=== PATIENT | male | born 1945 | race Caucasian/White ===

== ENCOUNTER 2020-08-16 13:21 | Inpatient (IN) | payer MEDICARE, OTHER, SELFPAY ==
[2020-08-16] VITALS (18 sets, daily range): BP systolic 110–153; BP diastolic 51–72; PULSE 79–122; RESP 14–33; TEMP 36.8–37.1; O2SAT 89–100; BMI 32.1
--- NOTE | ~2020-08-16 | XR_ITS ---
EXAMINATION: XR chest 2V EXAM DATE: 08/16/2020 13:56 INDICATION: Weakness, emesis, lethargic, diaphoretic. TECHNIQUE: Frontal and lateral projections of the chest obtained and reviewed. Comparison is made to prior examination from 08/15/2018. FINDINGS: Small amount of bibasilar atelectasis or infiltrate. There are no pleural effusions. The cardiomediastinal silhouette is within normal limits. There is no pneumothorax suspected. The bones and soft tissues are unremarkable. IMPRESSION: Small amount of bibasilar atelectasis or infiltrate. Reviewed, dictated and finalized at location A.
--- NOTE | ~2020-08-16 | CT_ITS ---
EXAMINATION: CT abdomen pelvis w con DATE: 08/16/2020 15:13 INDICATION: Sepsis. Generalized abdominal pain. Nausea and vomiting. TECHNIQUE: Computed tomography (CT) of the abdomen and pelvis was performed with 100 mL Omnipaque-350 intravenous contrast. Automated exposure control and iterative reconstruction technique were employe d. The dose-length product was 1577.48 mGy-cm. COMPARISON: 08/15/2018 FINDINGS: Mild atelectasis at the lung bases. Heart size is normal. Atherosclerotic coronary artery calcific ca lcification. No pericardial or pleural effusion. Liver, gallbladder, pancreas, bilateral adrenal glan ds and left kidney are normal. A couple right renal cysts the larger measuring 2.1 cm. Chronic rim ca lcified splenic mass likely sequela of chronic hematoma or infection. Appendix is normal. There is mi ld rectal wall thickening and perirectal stranding. Remainder of the bowel is normal. No obstruction. Bladder is normal. Prostatomegaly. No free intraperitoneal gas or fluid. No pathologically enlarged abdominal or pelvic lymphadenopathy. Small amount of atherosclerotic calcification without hemodynami dayan significant stenosis along the aorta and bilateral common and internal iliac arteries. Mild to moderate scattered degenerative skeletal changes in the spine and pelvis. IMPRESSION: 1. Proctitis/distal colitis which could be infectious, inflammatory or less likely ischemic in etiolo gy. Reviewed, dictated and finalized at location A. IMPRESSION: 1. Proctitis/distal colitis which could be infectious, inflammatory or less lik roro ischemic in etiology.
--- NOTE | 2020-08-16 13:25 | ED.WEAKNESS ---
HPI - Weakness General Chief complaint: Weakness Stated complaint: weakness/emesis Time Seen by Provider: 08/16/20 13:25 History of Present Illness HPI Narrative: History limited by medical condition. 74 yo male w/ h/o DM, BPH, Colitis presents to the ED from home for weakness. He reports that he has felt generally weak since this morning. This has been associated wih vomiting. His son reports a fever of 100.6. No diarrhea, constipation, chest pain, cough. He had a recent prostate biopsy. Related Data Home Medications Medication Instructions Recorded Confirmed acetaminophen 325 mg PO TID PRN 08/16/20 08/16/20 alogliptin 25 mg PO DAILY 08/16/20 08/16/20 atorvastatin 10 mg PO DAILY 08/16/20 08/16/20 cholecalciferol (vitamin D3) 50 mcg PO DAILY 08/16/20 08/16/20 diclofenac-capsaicin 1 ea TOPICAL PRN PRN 08/16/20 08/16/20 duloxetine 40 mg PO DAILY 08/16/20 08/16/20 metformin 1,000 mg PO BID 08/16/20 08/16/20 oxycodone 5 mg PO Q8H PRN 08/16/20 08/16/20 polyethylene glycol 3350 17 g PO DAILY 08/16/20 08/16/20 tamsulosin 0.4 mg PO DAILY 08/16/20 08/16/20 hydrocodone-acetaminophen 1 tablet PO Q8H PRN 08/17/20 08/17/20 triamterene-hydrochlorothiazid 1 tablet PO DAILY 08/17/20 08/17/20 Allergies Allergy/AdvReac Type Severity Reaction Status Date / Time No Known Allergies Allergy Verified 08/15/18 14:28 Review of Systems Review of Systems: All systems reviewed & are unremarkable except as noted in HPI and below ENT: Denies sore throat Cardiovascular: Cardiovascular: Denies chest pain Respiratory: Respiratory: Denies cough and Denies dyspnea Gastrointestinal: Gastrointestinal: Denies abdominal pain, Denies constipation, Denies diarrhea, Reports nausea and Reports vomiting Genitourinary: Genitourinary: Denies dysuria Musculoskeletal: Musculoskeletal: Reports back pain Neurologic: Denies syncope, Denies numbness and Reports weakness PMFSH Past Medical History Medical History (Updated 08/20/20 @ 17:20 by Manolo Bach MD) Anemia Benign prostatic hyperplasia Chronic idiopathic thrombocytopenia Chronic pain Diabetic peripheral neuropathy Essential hypertension Hyperlipidemia Menieres disease Obstructive sleep apnea Patient uses a dental appliance. Osteoarthritis Type 2 diabetes mellitus Last hemoglobin A1c was around 7.5%. Type 2 myocardial infarction (~08/2018) In the setting of severe sepsis due to enterocolitis. Surgical History Surgical History (Updated 08/16/20 @ 17:30 by Dafne Romero PA-C) History of bilateral knee arthroplasty History of prostate biopsy Status post surgical removal of malignant neoplasm of skin (~02/2018) excision of skin cancer from the right eyelid. Family History Family History Mother Dementia in Parkinson's disease Father Coronary artery disease Social History Social History (Updated 08/16/20 @ 22:14 by Dafne Romero PA-C) Social History: Surrogate decision maker: Beatriz Torres, spouse. Code status: Full code. Smoking status: Former smoker Additional smoking assessment comments: Smoked socially many years ago. Alcohol intake: former Substance use: never Additional living arrangements comments: Resides with his in [place]. 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 Gender identity (if verbalized by the patient): Male Spiritual care concerns: No Exam Const: General: no acute distress, alert, diaphoretic and ill appearing acutely Nutritional Appearance: well nourished Orientation/consciousness: patient oriented x3 HENMT: Head: normal to inspection Resp: Effort & Inspection: normal respiratory effort Auscultation: clear to auscultation bilaterally Cardio: Rate: tachycardic Rhythm: regular rhythm GI: GI Palp: Yes Soft to palpation and No Tenderness to palpation present (GI) Skin: General skin e
[2020-08-16 13:32] LABS: Glucose Point of Care 244 (65-105)
--- NOTE | 2020-08-16 13:35 | ECG_ITS ---
Measurements Intervals [place] Rate: 126 P: 0 [place]: 185 QRS: 121 QRSD: 89 T: 44 QT: 327 QTc: 474 Interpretive Statements SINUS TACHYCARDIA DELAYED PRECORDIAL R/S TRANSITION BASELINE ARTIFACT- I, II, III, AVR, AVL, V4 ABNORMAL ECG Electronically Signed On 08-16-2020 16:57:19 CDT by Nico Madden D.O.
[2020-08-16 13:48] LABS: Basophils Percent Auto 0.2 % (0.2-1.2); Eosinophils Percent Auto 0.3 % (0-4.4); Hematocrit 41.2 % (42.0-52.0); Immature Granulocyte Absolute 0.08 K/mm3 (0.00-0.031); Immature Granulocyte Percent A 0.7 % (0-0.5); Immature Platelet Fraction Pct 7.4 % (0.9-11.2); Lymphocytes Absolute Auto 0.58 K/mm3 (0.9-3.2); Lymphocytes Percent Auto 4.7 % (18.3-44.2); Mean Corpuscular Hemoglobin 30.4 pg (26-34); Mean Corpuscular Volume 89.6 fl (80-100); Mean Platelet Volume 12.3 fl (7.4-10.4); Monocytes Absolute Auto 0.2 K/mm3 (0.1-0.6); Monocytes Percent Auto 1.6 % (2.6-8.5); Neutrophils Absolute Auto 11.3 K/mm3 (1.3-6.7); Neutrophils Percent Auto 92.5 % (45.5-73.1); Platelet Count Result 55 k/mm3 (150-375); Red Cell Distribution Width 13.2 % (11.5-14.5); White Blood Count 12.3 K/mm3 (4.5-10.0)
[2020-08-16 13:52] LABS: Add Urine Microscopic? YES; Appearance Urine Cloudy (Clear); Bacteria Urine Trace /hpf; Bilirubin Urine Negative (Negative); Blood Urine 3+ (Negative); Color Urine Yellow (Yellow); Glucose Urine UA 3+ mg/dL (Negative); Ketones Urine 1+ mg/dL (Negative); Leukocyte Esterase Ur Negative LEU/UL (Negative); Mucus Urine Rare /lpf; Nitrate Urine Positive (Negative); Protein Urine 2+ mg/dL (Negative); RBC Urine >75 /hpf (0-2); Specific Grav Ur 1.018 (1.001-1.035); Squamous Epithelial Cell Urine Rare /hpf (Few); Urobilinogen Urine Negative mg/dL (<2.0); WBC Urine 21-30 /hpf
--- NOTE | 2020-08-16 13:59 | PC.NURSE ---
Pt returns from xray, per radiology pt became diaphoretic in their department and was incontinent of urine. Note blood tinged urine to blanket.
[2020-08-16 14:01] LABS: INR 1.1; Prothrombin Time 13.8 Seconds (11.1-14.7)
[2020-08-16 14:10] LABS: Alanine Aminotransferase 23 U/L (4-50); Albumin Level 4.4 g/dL (3.5-5.1); Alkaline Phosphatase 56 U/L (38-126); Anion Gap 18 mmol/L (8-16); Aspartate Amino Transferase 31 U/L (17-59); Bilirubin,Total 2.6 mg/dL (0.2-1.3); Blood Urea Nitrogen 16 mg/dL (9-20); Calcium 9.5 mg/dL (8.4-10.2); Carbon Dioxide 18 mmol/L (22-30); Chloride 102 mmol/L (98-107); Estimated CRCL calculation 87 ml/min; Estimated Glomerular Filt Rate > 60; Glucose 260 mg/dL (75-110); Sodium 138 mmol/L (137-145)
[2020-08-16 14:21] LABS: Lipase 63 U/L (23-300)
--- NOTE | 2020-08-16 14:24 | PC.NURSE ---
IV ABX initiated. Pt states I need something for pain! . Pt also requesting ice chips po. Explained that this RN will inquire about something for pain but that he should not take anything by mouth until we have the results. Pt much more talkative than on arrival.
[2020-08-16 14:27] LABS: Lactic Acid Reflex 3.8 mmol/L (0.7-2.1)
[2020-08-16 14:30] LABS: CRP 6.4 mg/dL (<1.0)
[2020-08-16] MEDS: SODIUM CHLORIDE 0.9% IV 1,000 ML 999 ML IV CONT ×2 (14:58→16:07)
[2020-08-16] MEDS: MORPHINE SULFATE (*CRX) 4 MG/ML INJ IV PUSH ×2 (14:59→21:49)
--- NOTE | 2020-08-16 15:02 | PC.NURSE ---
Pt given pain medications and to CT via stretcher.
--- NOTE | 2020-08-16 15:17 | PC.NURSE ---
Pt returns from xray, pt awoken to ask how his pain is. Pt states he thinks he's feeling better. Continues to request ice chips, explained that unable to give at this time until CT is resulted.
--- NOTE | 2020-08-16 16:00 | PC.NURSE ---
Pt given ice chips po. Awaiting disposition.
--- NOTE | 2020-08-16 17:07 | PC.NURSE ---
Attempt to call report to floor, nurse unable to take and will call back.
[2020-08-16 17:13] LABS: Reflex Lactic Acid Yes or No Add Lactic
--- NOTE | 2020-08-16 17:30 | PM.IMHP ---
H&P: HPI History of Present Illness Date/Time: 08/16/20 17:30 <Dafne Romero PA-C - Last Filed: 08/16/20 22:15> Chief complaint: Fever, weak. <Dafne Romero PA-C - Last Filed: 08/16/20 22:15> Narrative: Duane Torres is a 74-year-old male with type 2 diabetes mellitus, peripheral neuropathy, chronic pain syndrome, and benign prostatic hyperplasia who presented to the emergency department earlier today via EMS from home with complaints of weakness and fever. Monday afternoon he had a prostate biopsy at [facility] in [place] and last evening he began feeling poorly, with chills, shakes, nausea, and dry heaves. This morning he was extremely weak to the point where he could not stand on his own and had to slide down the wall to the floor to prevent himself from falling. He was also having significant arthralgias and myalgias. With further questioning he does admit that his urine has had some blood in it any is also had urgency but he denies overt dysuria and incontinence. He has not had a fever to his knowledge and he denies sinus congestion, rhinorrhea, otalgia, odynophagia, chest pain, shortness of breath, cough, and diarrhea. He last had a normal bowel movement yesterday. <Dafne Romero PA-C - Last Filed: 08/16/20 22:15> Review of Systems Review of Systems: Narrative: Twelve systems were reviewed with pertinent positives and negatives as per HPI. Except as documented, all other systems were reviewed and are negative. <Dafne Romero PA-C - Last Filed: 08/16/20 22:15> [facility] Past Medical History Medical History: Medical History (Updated 08/16/20 @ 22:11 by Dafne Romero PA-C) Anemia Benign prostatic hyperplasia Chronic idiopathic thrombocytopenia Chronic pain Diabetic peripheral neuropathy Essential hypertension Hyperlipidemia Menieres disease Obstructive sleep apnea Patient uses a dental appliance. Osteoarthritis Type 2 diabetes mellitus Last hemoglobin A1c was around 7.5%. Type 2 myocardial infarction (~08/2018) In the setting of severe sepsis due to enterocolitis. <Dafne Romero PA-C - Last Filed: 08/16/20 22:15> Surgical History Surgical History: Surgical History (Updated 08/16/20 @ 17:30 by Dafne Romero PA-C) History of bilateral knee arthroplasty History of prostate biopsy Status post surgical removal of malignant neoplasm of skin (~02/2018) excision of skin cancer from the right eyelid. <Dafne Romero PA-C - Last Filed: 08/16/20 22:15> Family History Family History: Family History Mother Dementia in Parkinson's disease Father Coronary artery disease <Dafne Romero PA-C - Last Filed: 08/16/20 22:15> Social History Social History: Social History (Updated 08/16/20 @ 22:14 by Dafne Romero PA-C) Social History: Surrogate decision maker: Beatriz Torres, spouse. Code status: Full code. Smoking status: Former smoker Additional smoking assessment comments: Smoked socially many years ago. Alcohol intake: former Substance use: never Additional living arrangements comments: Resides with his in [place]. 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
--- NOTE | 2020-08-16 18:11 | PC.NURSE ---
This patient, Duane Torres, was admitted to Medical Room 344-01. Patient/family oriented to hospital policies and general routines including ID bracelet, bed and alarms, visiting hours, pain management, procedures, bathroom and other care routines, personal items, smoking policy, room service/diet, and visiting hours. Valuables list has been completed. Information on how to activate the Rapid Response Team has been discussed. Patient/Family are encouraged to report perceived risks to care and to ask questions if they do not understand what they are told or what they should do.
[2020-08-16] MEDS: LACTATED RINGERS 1,000 ML 125 ML IV CONT (18:19)
[2020-08-16 18:28] LABS: Lactic Acid 2.4 mmol/L (0.7-2.1)
[2020-08-16 22:38] LABS: Glucose Point of Care 202 (65-105)
[2020-08-17] VITALS (9 sets, daily range): BP systolic 128–159; BP diastolic 60–80; PULSE 68–87; RESP 14–16; TEMP 36.1–36.6; O2SAT 96–98
[2020-08-17] MEDS: MORPHINE SULFATE (*CRX) 4 MG/ML INJ IV PUSH (03:45)
[2020-08-17] MEDS: LACTATED RINGERS 1,000 ML 100 ML IV CONT ×2 (04:24→16:02)
[2020-08-17 05:52] LABS: Basophils Percent Auto 0.3 % (0.2-1.2); Eosinophils Absolute Auto 0.1 K/mm3 (0-0.3); Eosinophils Percent Auto 0.9 % (0-4.4); Hemoglobin 11.3 g/dL (14.0-18.0); Immature Granulocyte Absolute 0.05 K/mm3 (0.00-0.031); Immature Granulocyte Percent A 0.5 % (0-0.5); Immature Platelet Fraction Pct 7.5 % (0.9-11.2); Lymphocytes Absolute Auto 0.55 K/mm3 (0.9-3.2); Lymphocytes Percent Auto 5.3 % (18.3-44.2); Mean Corpuscular HGB Conc 33.2 g/dl (32-36); Mean Corpuscular Hemoglobin 30.5 pg (26-34); Mean Corpuscular Volume 91.6 fl (80-100); Mean Platelet Volume 12.3 fl (7.4-10.4); Monocytes Absolute Auto 0.7 K/mm3 (0.1-0.6); Monocytes Percent Auto 6.4 % (2.6-8.5); Neutrophils Percent Auto 86.6 % (45.5-73.1); Platelet Count Result 54 k/mm3 (150-375); Red Blood Count 3.71 M/mm3 (4.6-6.20); Red Cell Distribution Width 13.4 % (11.5-14.5); White Blood Count 10.4 K/mm3 (4.5-10.0)
[2020-08-17 06:00] LABS: Hemoglobin A1C 6.8 % (<5.7)
[2020-08-17 06:03] LABS: Alanine Aminotransferase 19 U/L (4-50); Albumin Level 3.5 g/dL (3.5-5.1); Alkaline Phosphatase 37 U/L (38-126); Anion Gap 8 mmol/L (8-16); Aspartate Amino Transferase 31 U/L (17-59); Bilirubin,Total 1.4 mg/dL (0.2-1.3); Blood Urea Nitrogen 16 mg/dL (9-20); Calcium 8.4 mg/dL (8.4-10.2); Carbon Dioxide 25 mmol/L (22-30); Chloride 105 mmol/L (98-107); Estimated CRCL calculation 98 ml/min; Estimated Glomerular Filt Rate > 60; Glucose 152 mg/dL (75-110); Magnesium 1.3 mg/dL (1.6-2.3); Potassium 3.7 mmol/L (3.4-5.0); Sodium 138 mmol/L (137-145)
[2020-08-17 07:47] LABS: Glucose Point of Care 208 (65-105)
[2020-08-17] MEDS: MAGNESIUM OXIDE 400 MG TABLET PO (09:02)
[2020-08-17] MEDS: polyethylene glycoL 3350 17 GM POWD.PACK PO (09:03)
[2020-08-17] MEDS: TAMSULOSIN HCL 0.4 MG CAPSULE PO (09:03)
[2020-08-17] MEDS: DULoxetine HCL 20 MG CAPSULE.DR 40 MG PO (09:03)
[2020-08-17] MEDS: CHOLECALCIFEROL 1,000 UNITS TABLET 2000 UNITS PO (09:03)
[2020-08-17] MEDS: ATORVASTATIN 10 MG TABLET PO (09:03)
[2020-08-17] MEDS: INSULIN ASPART (*BKC) 100 UNITS/ML SUB-Q (09:07)
[2020-08-17] MEDS: MAGNESIUM SULF 2 GM/WATER 50ML 2 GM/50 ML BAG IVPB (09:52)
[2020-08-17 10:42] LABS: Lactic Acid Reflex 2.2 mmol/L (0.7-2.1)
[2020-08-17] MEDS: HYDROcodone/acetaminophen (*CRX) 7.5-325 MG TABLET 1 TAB PO ×2 (10:45→20:03)
[2020-08-17 11:44] LABS: Glucose Point of Care 198 (65-105)
--- NOTE | 2020-08-17 13:26 | PM.IMPN ---
Progress Note: A&P Assessment and Plan (1) Sepsis: Code(s): A41.9 - Sepsis, unspecified organism Status: Acute Assessment and Plan: 08/17/20 13:26 patient is 74-year-old male with history of BPH status post prostate biopsy on 08/14 at the [facility] in [place], [place], patient states that on the evening of 08/15 patient felt sick nausea dry heaves, fatigue feverish and tired, on 08/16 in the morning patient felt more weak had difficult time getting up and ambulating patient presented emergency department for further evaluate upon arrival to emergency depart patient was tachycardia mildly elevated white, elevated lactic acid his urine is positive nitrite and leukourea, CT scan of the abdomen pelvis showed Proctitis/distal colitis which could be infectious, inflammatory or less likely ischemic in etiology patient meets the criteria for sepsis most likely secondary to UTI patient is started on Zosyn, preliminary urine culture is growing gram-negative bacilli patient started on Zosyn will follow up on identification and sensitivity and and further recommendation to follow. once clinically stable will have a PT OT to evaluate the patient (2) Urinary tract infection: Code(s): N39.0 - Urinary tract infection, site not specified Status: Acute Assessment and Plan: urine culture is growing gram-negative bacilli will follow-up identification and sensitivity will continue Zosyn (3) Proctitis: Code(s): K62.89 - Other specified diseases of anus and rectum Status: Acute Assessment and Plan: clinically stable no abscess (4) Type 2 diabetes mellitus: Code(s): E11.9 - Type 2 diabetes mellitus without complications Status: Acute Assessment and Plan: will continue home regimen and monitor (5) Benign prostatic hyperplasia: Code(s): N40.0 - Benign prostatic hyperplasia without lower urinary tract symptoms Status: Acute Assessment and Plan: status post biopsy (6) Essential hypertension: Code(s): I10 - Essential (primary) hypertension Status: Acute Assessment and Plan: will continue home regimen and monitor (7) Hyperlipidemia: Code(s): E78.5 - Hyperlipidemia, unspecified Status: Acute Assessment and Plan: will continue home regimen and (8) Obstructive sleep apnea: Code(s): G47.33 - Obstructive sleep apnea (adult) (pediatric) Status: Acute Assessment and Plan: patient to use CPAP Additional Plan The patient has been admitted to the hospitalist service for further treatment of sepsis in the setting of urinary tract infection. CT also shows findings of proctitis/distal colitis but he has no symptoms to suggest such in may very well be inflammation from recent prostate biopsy. Sepsis is supported by low-grade fever, tachycardia, tachypnea, leukocytosis, and lactic acidosis. QSOFA score was 0 however his SOFA score is 4. He is receiving IV fluid resuscitation with repeat lactic acid level pending. Blood and urine cultures have been obtained. Continue Zosyn, pending cultures. His blood pressure was reviewed and is stable. Heart rate has improved with IV fluids. Random glucose was elevated at 244 however I will hold his metformin while hospitalized and initiate sliding scale insulin, Accu-Cheks, and hypoglycemic protocol. Hemoglobin A1c in a.m. His medications will be reviewed and resumed as appropriate. Subjective Date/time seen: 08/17/20 13:26 patient is 74-year-old male with history of BPH status post prostate biopsy on 08/14 at the [facility] in [place], [place], patient states that on the evening of 08/15 patient felt sick nausea dry heaves, fatigue feverish and tired, on 08/16 in the morning patient felt more weak had difficult time getting up and ambulating patient presented emergency department for further evaluate upon arrival to emergency depart patient was tachycardia mildly elevat
[2020-08-17 13:28] LABS: Reflex Lactic Acid Yes or No Add Lactic
[2020-08-17 14:13] LABS: Lactic Acid 1.3 mmol/L (0.7-2.1)
--- NOTE | 2020-08-17 15:08 | PHAR ---
HOME MED VERIFIED ALOGLIPTIN 25MG 1 TABLET DAILY
--- NOTE | 2020-08-17 15:31 | PHAR ---
HOME MED DICLOFENAC GEL 1% APPLY NEEDED FOR PAIN
[2020-08-17 16:32] LABS: Glucose Point of Care 175 (65-105)
[2020-08-17 21:40] LABS: Glucose Point of Care 138 (65-105)
[2020-08-18] VITALS: PULSE 67
[2020-08-18] MEDS: LACTATED RINGERS 1,000 ML 100 ML IV CONT (01:47)
[2020-08-18] MEDS: HYDROcodone/acetaminophen (*CRX) 7.5-325 MG TABLET 1 TAB PO ×3 (03:59→20:21)
[2020-08-18 04:00] VITALS: PULSE 72
[2020-08-18 05:16] VITALS: BP 153/72; PULSE 63; RESP 16; TEMP 36; O2SAT 92
[2020-08-18 05:51] LABS: Hemoglobin 10.3 g/dL (14.0-18.0); Immature Platelet Fraction Pct 8.6 % (0.9-11.2); Mean Corpuscular HGB Conc 33.2 g/dl (32-36); Mean Corpuscular Hemoglobin 30.1 pg (26-34); Mean Corpuscular Volume 90.6 fl (80-100); Mean Platelet Volume 12.7 fl (7.4-10.4); Platelet Count Result 46 k/mm3 (150-375); Red Blood Count 3.42 M/mm3 (4.6-6.20); Red Cell Distribution Width 13.2 % (11.5-14.5); White Blood Count 6.4 K/mm3 (4.5-10.0)
[2020-08-18 07:47] LABS: Glucose Point of Care 155 (65-105)
[2020-08-18 08:00] VITALS: PULSE 70
[2020-08-18] MEDS: TAMSULOSIN HCL 0.4 MG CAPSULE PO (08:54)
[2020-08-18] MEDS: polyethylene glycoL 3350 17 GM POWD.PACK PO (08:54)
[2020-08-18] MEDS: ATORVASTATIN 10 MG TABLET PO (08:54)
[2020-08-18] MEDS: DULoxetine HCL 20 MG CAPSULE.DR 40 MG PO (08:54)
[2020-08-18] MEDS: MAGNESIUM OXIDE 400 MG TABLET PO (08:55)
[2020-08-18] MEDS: CHOLECALCIFEROL 1,000 UNITS TABLET 2000 UNITS PO (08:55)
[2020-08-18 08:58] LABS: Alanine Aminotransferase 24 U/L (4-50); Albumin Level 3.7 g/dL (3.5-5.1); Alkaline Phosphatase 42 U/L (38-126); Anion Gap 7 mmol/L (8-16); Aspartate Amino Transferase 37 U/L (17-59); Bilirubin,Total 0.9 mg/dL (0.2-1.3); Blood Urea Nitrogen 14 mg/dL (9-20); Calcium 8.7 mg/dL (8.4-10.2); Carbon Dioxide 27 mmol/L (22-30); Chloride 103 mmol/L (98-107); Estimated CRCL calculation 109 ml/min; Estimated Glomerular Filt Rate > 60; Glucose 236 mg/dL (75-110); Magnesium 1.7 mg/dL (1.6-2.3); Potassium 3.7 mmol/L (3.4-5.0); Sodium 137 mmol/L (137-145)
[2020-08-18 11:45] LABS: Glucose Point of Care 172 (65-105)
[2020-08-18 14:00] VITALS: BP 115/61; PULSE 75; RESP 18; TEMP 36.2; O2SAT 97
--- NOTE | 2020-08-18 14:03 | PM.IMPN ---
Progress Note: A&P Assessment and Plan (1) Sepsis: Code(s): A41.9 - Sepsis, unspecified organism Status: Acute Assessment and Plan: 08/18/20 14:03 patient is 74-year-old male with history of BPH status post prostate biopsy on 08/14 at the [facility] in [place], [place], patient states that on the evening of 08/15 patient felt sick nausea dry heaves, fatigue feverish and tired, on 08/16 in the morning patient felt more weak had difficult time getting up and ambulating patient presented emergency department for further evaluate upon arrival to emergency depart patient was tachycardia mildly elevated white, elevated lactic acid his urine is positive nitrite and leukourea, CT scan of the abdomen pelvis showed Proctitis/distal colitis which could be infectious, inflammatory or less likely ischemic in etiology patient meets the criteria for sepsis most likely secondary to UTI patient is started on Zosyn, preliminary urine culture is growing gram-negative bacilli patient started on Zosyn will follow up on identification and sensitivity and and further recommendation to follow. once clinically stable will have a PT OT to evaluate the patient. Today 08/18 patient stats he is feeling better his his urine culture is growing E coli pansensitive including Rocephin, his blood culture is growing E coli with sensitivities pending, once we know sensitivity for blood culture begin possibly discharge the patient home on IV Rocephin for 7 days, patient is clinically stable will have a PT OT evaluate the patient (2) Urinary tract infection: Code(s): N39.0 - Urinary tract infection, site not specified Status: Acute Assessment and Plan: urine culture is growing gram-negative bacilli will follow-up identification and sensitivity will continue Zosyn (3) Proctitis: Code(s): K62.89 - Other specified diseases of anus and rectum Status: Acute Assessment and Plan: clinically stable no abscess (4) Type 2 diabetes mellitus: Code(s): E11.9 - Type 2 diabetes mellitus without complications Status: Acute Assessment and Plan: will continue home regimen and monitor (5) Benign prostatic hyperplasia: Code(s): N40.0 - Benign prostatic hyperplasia without lower urinary tract symptoms Status: Acute Assessment and Plan: status post biopsy (6) Essential hypertension: Code(s): I10 - Essential (primary) hypertension Status: Acute Assessment and Plan: will continue home regimen and monitor (7) Hyperlipidemia: Code(s): E78.5 - Hyperlipidemia, unspecified Status: Acute Assessment and Plan: will continue home regimen and (8) Obstructive sleep apnea: Code(s): G47.33 - Obstructive sleep apnea (adult) (pediatric) Status: Acute Assessment and Plan: patient to use CPAP Additional Plan The patient has been admitted to the hospitalist service for further treatment of sepsis in the setting of urinary tract infection. CT also shows findings of proctitis/distal colitis but he has no symptoms to suggest such in may very well be inflammation from recent prostate biopsy. Sepsis is supported by low-grade fever, tachycardia, tachypnea, leukocytosis, and lactic acidosis. QSOFA score was 0 however his SOFA score is 4. He is receiving IV fluid resuscitation with repeat lactic acid level pending. Blood and urine cultures have been obtained. Continue Zosyn, pending cultures. His blood pressure was reviewed and is stable. Heart rate has improved with IV fluids. Random glucose was elevated at 244 however I will hold his metformin while hospitalized and initiate sliding scale insulin, Accu-Cheks, and hypoglycemic protocol. Hemoglobin A1c in a.m. His medications will be reviewed and resumed as appropriate. Subjective Date/time seen: 08/18/20 14:03 patient is 74-year-old male with history of BPH status post prostate biopsy on 08/14 at the
[2020-08-18 16:43] LABS: Glucose Point of Care 161 (65-105)
[2020-08-18 21:04] VITALS: BP 130/66; PULSE 63; RESP 16; TEMP 36.9; O2SAT 98
[2020-08-18 21:18] LABS: Glucose Point of Care 197 (65-105)
[2020-08-19] MEDS: HYDROcodone/acetaminophen (*CRX) 7.5-325 MG TABLET 1 TAB PO ×2 (04:21→14:35)
[2020-08-19 04:23] VITALS: BP 131/77; PULSE 54; RESP 16; TEMP 37; O2SAT 98
[2020-08-19 05:40] LABS: Hematocrit 30.6 % (42.0-52.0); Hemoglobin 10.5 g/dL (14.0-18.0); Mean Corpuscular HGB Conc 34.3 g/dl (32-36); Mean Corpuscular Hemoglobin 30.3 pg (26-34); Mean Corpuscular Volume 88.2 fl (80-100); Mean Platelet Volume 12.3 fl (7.4-10.4); Platelet Count Result 56 k/mm3 (150-375); Red Blood Count 3.47 M/mm3 (4.6-6.20); Red Cell Distribution Width 13.1 % (11.5-14.5); White Blood Count 6.1 K/mm3 (4.5-10.0)
[2020-08-19 06:01] LABS: Alanine Aminotransferase 24 U/L (4-50); Albumin Level 3.2 g/dL (3.5-5.1); Alkaline Phosphatase 44 U/L (38-126); Anion Gap 6 mmol/L (8-16); Aspartate Amino Transferase 28 U/L (17-59); Bilirubin,Total 0.7 mg/dL (0.2-1.3); Blood Urea Nitrogen 12 mg/dL (9-20); Calcium 8.6 mg/dL (8.4-10.2); Carbon Dioxide 26 mmol/L (22-30); Chloride 107 mmol/L (98-107); Estimated CRCL calculation 109 ml/min; Estimated Glomerular Filt Rate > 60; Glucose 185 mg/dL (75-110); Magnesium 1.8 mg/dL (1.6-2.3); Potassium 3.8 mmol/L (3.4-5.0); Sodium 139 mmol/L (137-145)
[2020-08-19 07:43] LABS: Glucose Point of Care 183 (65-105)
[2020-08-19] MEDS: DULoxetine HCL 20 MG CAPSULE.DR 40 MG PO (08:59)
[2020-08-19] MEDS: MAGNESIUM OXIDE 400 MG TABLET PO (08:59)
[2020-08-19] MEDS: TAMSULOSIN HCL 0.4 MG CAPSULE PO (08:59)
[2020-08-19] MEDS: ATORVASTATIN 10 MG TABLET PO (09:00)
[2020-08-19] MEDS: polyethylene glycoL 3350 17 GM POWD.PACK PO (09:00)
[2020-08-19] MEDS: CHOLECALCIFEROL 1,000 UNITS TABLET 2000 UNITS PO (09:00)
[2020-08-19 11:39] LABS: Glucose Point of Care 250 (65-105)
[2020-08-19] MEDS: INSULIN ASPART (*BKC) 100 UNITS/ML SUB-Q (11:51)
[2020-08-19 14:00] VITALS: BP 118/56; PULSE 65; RESP 16; TEMP 35.8; O2SAT 99
--- NOTE | 2020-09-09 18:23 | PM.DS ---
DS: Admitting Diagnosis Admitting Diagnosis Admitting Diagnosis: Fever, weak. DS: Discharge Diagnosis Discharge Diagnosis (1) Sepsis: Qualifiers: Sepsis acute organ dysfunction status: without acute organ dysfunction Sepsis type: sepsis due to unspecified organism Qualified Code(s): A41.9 - Sepsis, unspecified organism Code(s): A41.9 - Sepsis, unspecified organism Status: Acute Assessment and Plan: 08/18/20 14:03 patient is 74-year-old male with history of BPH status post prostate biopsy on 08/14 at the [facility] in [place], [place], patient states that on the evening of 08/15 patient felt sick nausea dry heaves, fatigue feverish and tired, on 08/16 in the morning patient felt more weak had difficult time getting up and ambulating patient presented emergency department for further evaluate upon arrival to emergency depart patient was tachycardia mildly elevated white, elevated lactic acid his urine is positive nitrite and leukourea, CT scan of the abdomen pelvis showed Proctitis/distal colitis which could be infectious, inflammatory or less likely ischemic in etiology patient meets the criteria for sepsis most likely secondary to UTI patient is started on Zosyn, preliminary urine culture is growing gram-negative bacilli patient started on Zosyn will follow up on identification and sensitivity and and further recommendation to follow. once clinically stable will have a PT OT to evaluate the patient. Today 08/18 patient stats he is feeling better his his urine culture is growing E coli pansensitive including Rocephin, his blood culture is growing E coli with sensitivities pending, once we know sensitivity for blood culture begin possibly discharge the patient home on IV Rocephin for 7 days, patient is clinically stable will have a PT OT evaluate the patient (2) Urinary tract infection: Code(s): N39.0 - Urinary tract infection, site not specified Status: Acute Assessment and Plan: urine culture is growing gram-negative bacilli will follow-up identification and sensitivity will continue Zosyn (3) Proctitis: Code(s): K62.89 - Other specified diseases of anus and rectum Status: Acute Assessment and Plan: clinically stable no abscess (4) Type 2 diabetes mellitus: Code(s): E11.9 - Type 2 diabetes mellitus without complications Status: Acute Assessment and Plan: will continue home regimen and monitor (5) Benign prostatic hyperplasia: Code(s): N40.0 - Benign prostatic hyperplasia without lower urinary tract symptoms Status: Acute Assessment and Plan: status post biopsy (6) Essential hypertension: Code(s): I10 - Essential (primary) hypertension Status: Acute Assessment and Plan: will continue home regimen and monitor (7) Hyperlipidemia: Code(s): E78.5 - Hyperlipidemia, unspecified Status: Acute Assessment and Plan: will continue home regimen and (8) Obstructive sleep apnea: Code(s): G47.33 - Obstructive sleep apnea (adult) (pediatric) Status: Acute Assessment and Plan: patient to use CPAP DS: Summary Hospital Course Reason for hospitalization: Duane Torres is a 74-year-old male with type 2 diabetes mellitus, peripheral neuropathy, chronic pain syndrome, and benign prostatic hyperplasia who presented to the emergency department earlier today via EMS from home with complaints of weakness and fever. Monday afternoon he had a prostate biopsy at [facility] in [place] and last evening he began feeling poorly, with chills, shakes, nausea, and dry heaves. This morning he was extremely weak to the point where he could not stand on his own and had to slide down the wall to the floor to prevent himself from falling. He was also having significant arthralgias and myalgias. With further questioning he does admit that his urine has had some blood in it any
== END 2020-08-19 14:53 | disposition home health service (06) | DRG 872 ==
LOC: ANHED 13:39 → ANH3MED 16:37
PROVIDERS: Emergency Medicine; Physician Assistant; Admitting Provider Family Medicine; Emergency Provider Emergency Medicine; Visit Provider Family Medicine
DX: A41.51 Sepsis due to Escherichia coli [E. coli] (principal); N39.0 Urinary tract infection, site not specified; D69.3 Immune thrombocytopenic purpura; D64.9 Anemia, unspecified; N40.0 Benign prostatic hyperplasia without lower urinary tract symptoms; E11.42 Type 2 diabetes mellitus with diabetic polyneuropathy; E78.5 Hyperlipidemia, unspecified; K29.60 Other gastritis without bleeding; G47.33 Obstructive sleep apnea (adult) (pediatric); G89.4 Chronic pain syndrome; M19.90 Unspecified osteoarthritis, unspecified site; K62.89 Other specified diseases of anus and rectum; Z96.653 Presence of artificial knee joint, bilateral; I25.2 Old myocardial infarction; Z85.828 Personal history of other malignant neoplasm of skin; Z87.891 Personal history of nicotine dependence
CPT/HCPCS: 36415; 36569; 71046; 74177; 80053; 81001; 83036; 83605; 83690; 83735; 85025; 85027; 85055; 85610; 85730; 86140; 87040; 87077; 87086; 87088; 87186; 93005; 96361; 96365; 96375; 99285; A9270; C1751; J0696; J1815; J2270; J2543; J3475; J7030; J7120; Q9967

== ENCOUNTER 2022-02-12 16:01 | Emergency (ER) | payer MEDICARE, OTHER, SELFPAY ==
[2022-02-12] VITALS (14 sets, daily range): BP systolic 122–144; BP diastolic 61–77; PULSE 97; RESP 16; TEMP 36.1; O2SAT 96–99
--- NOTE | ~2022-02-12 | CT_ITS ---
EXAMINATION: CT brain wo con DATE: 02/12/2022 16:52 INDICATION: Head injury. TECHNIQUE: Computed tomography (CT) of the head was performed without intravenous contrast. The mA wa s adjusted according to patient size. Iterative reconstruction technique was employed. The dose-lengt h product was 681.00 mGy-cm. COMPARISON: None FINDINGS: There is no intracranial hemorrhage or acute infarction. The pituitary is enlarged with hei ght of 14 mm. There is a 12 mm cyst at the left side of the pituitary. There are scattered areas of l ow attenuation in the cerebral white matter, which is within normal limits for the patient's age. The ventricles are normal in size. There is mild mucosal thickening in the ethmoid sinuses. The orbits a re normal. The mastoid air cells are normal. IMPRESSION: 1. Enlarged pituitary with cystic area on the left. The differential diagnosis includes Rathke cleft cyst, craniopharyngioma, and pituitary adenoma. Brain MRI without and with contrast is recommended. Reviewed, dictated and finalized at location E.
--- NOTE | 2022-02-12 16:19 | PC.NURSE ---
Patient off unit to radiology for head ct.
--- NOTE | 2022-02-12 16:30 | PC.NURSE ---
EDP at bedside to assess pt.
--- NOTE | 2022-02-12 16:38 | ED.HEATRA ---
HPI - Head Injury General Chief complaint: Head Injury Stated complaint: fell and hit head, denies LOC, denies thinners Time Seen by Provider: 02/12/22 16:24 Source: patient and family Mode of arrival: ambulatory Limitations: no limitations History of Present Illness HPI Narrative: 76-year-old male presents emergency room secondary to a fall at home. He has sensory issues and is unsteady on his feet from time to time. Is walking out on concrete when he lost his balance and he fell. Initially struck his knees and his elbows and then he flipped around at the back of his head. Had no loss of consciousness. He was dazed. He is not on any blood thinners. His family was concerned and made him come to the hospital as they wanted him to have a CT scan to make sure there is no intracranial abnormalities. Denies any pain to his upper or lower extremities where initially he had when he fell. Related Data Home Medications Medication Instructions Recorded Confirmed acetaminophen 325 mg PO TID PRN 08/16/20 08/16/20 alogliptin 25 mg PO DAILY 08/16/20 08/16/20 atorvastatin 10 mg PO DAILY 08/16/20 08/16/20 cholecalciferol (vitamin D3) 50 mcg PO DAILY 08/16/20 08/16/20 diclofenac-capsaicin 1 ea TOPICAL PRN PRN 08/16/20 08/16/20 duloxetine 40 mg PO DAILY 08/16/20 08/16/20 metformin 1,000 mg PO BID 08/16/20 08/16/20 oxycodone 5 mg PO Q8H PRN 08/16/20 08/16/20 polyethylene glycol 3350 17 g PO DAILY 08/16/20 08/16/20 tamsulosin 0.4 mg PO DAILY 08/16/20 08/16/20 hydrocodone-acetaminophen 1 tablet PO Q8H PRN 08/17/20 08/17/20 triamterene-hydrochlorothiazid 1 tablet PO DAILY 08/17/20 08/17/20 Allergies Allergy/AdvReac Type Severity Reaction Status Date / Time No Known Allergies Allergy Verified 02/12/22 16:55 Review of Systems Review of Systems: CONSTITUTIONAL: Denies fever, chills, or sweats. EYES: Denies visual changes, redness, or discharge. ENT: Denies rhinorrhea, congestion, sore throat, or otalgia. CARDIOVASCULAR: Denies chest pain, palpitations, or edema. RESPIRATORY: Denies cough or dyspnea. GASTROINTESTINAL: Denies abdominal pain, nausea, vomiting, or diarrhea. GENITOURINARY: Denies dysuria or hematuria. SKIN: Denies rash or itching. MUSCULOSKELETAL: Denies back pain, joint pain, or myalgia. NEUROLOGIC: Denies headache, numbness, or weakness. PSYCHIATRIC: Denies anxiety or depression. [facility] Past Medical History Medical History Anemia Benign prostatic hyperplasia Chronic idiopathic thrombocytopenia Chronic pain Diabetic peripheral neuropathy Essential hypertension Hyperlipidemia Menieres disease Obstructive sleep apnea Patient uses a dental appliance. Osteoarthritis Type 2 diabetes mellitus Last hemoglobin A1c was around 7.5%. Type 2 myocardial infarction (~08/2018) In the setting of severe sepsis due to enterocolitis. Surgical History Surgical History History of bilateral knee arthroplasty History of prostate biopsy Status post surgical removal of malignant neoplasm of skin (~02/2018) excision of skin cancer from the right eyelid. Family History Family History Mother Dementia in Parkinson's disease Father Coronary artery disease Social History Social History Social History: Surrogate decision maker: Beatriz Brian, spouse. Code status: Full code. Smoking status: Former smoker Additional smoking assessment comments: Smoked socially many years ago. Alcohol intake: former Substance use: never Additional living arrangements comments: Resides with his in [place]. 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 Gender identity (if verbalized by the patient): Male Spiritual care concerns: No Exam Narrative: APPEARANCE: W
--- NOTE | 2022-02-12 17:50 | PC.NURSE ---
EDP at bedside to update patient on CT results and plan of care.
== END 2022-02-12 18:15 | disposition home or self-care (01) ==
PROVIDERS: Emergency Provider Emergency Medicine
DX: S09.90XA Unspecified injury of head, initial encounter (principal); E23.6 Other disorders of pituitary gland; N40.0 Benign prostatic hyperplasia without lower urinary tract symptoms; D69.3 Immune thrombocytopenic purpura; E11.42 Type 2 diabetes mellitus with diabetic polyneuropathy; E78.5 Hyperlipidemia, unspecified; H81.09 Meniere's disease, unspecified ear; G47.33 Obstructive sleep apnea (adult) (pediatric); I25.2 Old myocardial infarction; M19.90 Unspecified osteoarthritis, unspecified site; Z87.891 Personal history of nicotine dependence; Z79.84 Long term (current) use of oral hypoglycemic drugs; W18.39XA Other fall on same level, initial encounter
CPT/HCPCS: 70450; 99284

== ENCOUNTER 2022-03-01 10:37 | Outpatient (CLI) | payer MEDICARE, OTHER, SELFPAY ==
--- NOTE | ~2022-03-01 | MR_ITS ---
EXAMINATION: MR brain/brain stem wo/w con DATE: 03/01/2022 11:48 INDICATION: Suprasellar mass. TECHNIQUE: Magnetic resonance imaging (MRI) of the brain and brainstem was performed without and with 20 mL MultiHance intravenous contrast. COMPARISON: Head CT 02/12/2022 FINDINGS: The pituitary is enlarged with height of 16 mm. There is a 16 x 12 x 13 mm hypoenhancing ma ss in the pituitary on the right. There is leftward deviation of the infundibulum. The mass abuts the optic chiasm. There is no acute ischemic infarct or intracranial hemorrhage. There are scattered are as of nonspecific increased T2-weighted signal intensity in the cerebral white matter and mahin, which is within normal limits for the patient's age. The ventricles are normal in size. The orbits are nor mal. The paranasal sinuses are clear. The mastoid air cells are normal. IMPRESSION: 1. 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 Reviewed, dictated and finalized at location B.
[2022-03-01 11:08] LABS: Estimated Glomerular Filt Rate > 60
== END 2022-03-01 10:38 | disposition home or self-care (01) ==
LOC: ANHIMG 10:38
PROVIDERS: PCP Internal Medicine; Visit Provider Neurological Surgery
DX: G93.89 Other specified disorders of brain (principal)
CPT/HCPCS: 70553; A9577

== ENCOUNTER → 2023-06-09 15:26 | Emergency (ER) | payer MEDICARE, OTHER, SELFPAY | END | disposition left against medical advice (07) | LOC: EXPCOLL 15:45 | DX: Z53.21 Procedure and treatment not carried out due to patient leaving prior to being seen by health care provider (principal) | CPT/HCPCS: 99199 ==

== ENCOUNTER 2024-06-18 17:11 | Emergency (ER) | payer MEDICARE, OTHER, SELFPAY ==
[2024-06-18] VITALS (7 sets, daily range): BP systolic 93–152; BP diastolic 60–80; PULSE 67–80; RESP 14–20; TEMP 36.9–37; O2SAT 97–100
--- NOTE | ~2024-06-18 | XR_ITS ---
EXAMINATION: XR chest 2V Exam Date/Time: 06/18/2024 17:55 CDT HISTORY: syncope Comparison: 08/16/2020; CT abdomen pelvis 08/16/2020. RESULT: Lines, tubes, and devices: None. Lungs and pleura: Streaky bibasilar scar/atelectasis, otherwise clear. Cardiomediastinal silhouette: Stable. Other: No acute osseous or upper abdominal finding. Stable splenic calcifications. IMPRESSION: No acute cardiopulmonary process. Reviewed, dictated and finalized at location K.
--- NOTE | 2024-06-18 17:22 | ECG_ITS ---
Test Date: 2024-06-18 21:58:21 Measurements Intervals [place] Rate: 70 P: 29 MT: 206 QRS: 54 QRSD: 94 T: -16 QT: 386 QTc: 418 Interpretive Statements SINUS RHYTHM No previous ECG available for comparison Electronically Signed On 06-19-2024 17:08:42 CDT by Yudelka Ramsay M.D.
[2024-06-18 17:42] LABS: Basophils Percent Auto 0.3 % (0.2-1.2); Eosinophils Absolute Auto 0.2 K/mm3 (0-0.3); Eosinophils Percent Auto 2.6 % (0-4.4); Hemoglobin 13.9 g/dL (14.0-18.0); Immature Granulocyte Absolute 0.03 K/mm3 (0.00-0.031); Immature Granulocyte Percent A 0.4 % (0-0.5); Immature Platelet Fraction Pct 6.4 % (0.9-11.2); Lymphocytes Absolute Auto 1.32 K/mm3 (0.9-3.2); Lymphocytes Percent Auto 18.3 % (18.3-44.2); Mean Corpuscular HGB Conc 33.9 g/dl (32-36); Mean Corpuscular Volume 91.3 fl (80-100); Mean Platelet Volume 11.1 fl (7.4-10.4); Monocytes Absolute Auto 0.5 K/mm3 (0.1-0.6); Monocytes Percent Auto 6.6 % (2.6-8.5); Neutrophils Absolute Auto 5.2 K/mm3 (1.3-6.7); Neutrophils Percent Auto 71.8 % (45.5-73.1); Platelet Count Result 104 k/mm3 (150-375); Red Blood Count 4.49 M/mm3 (4.6-6.20); Red Cell Distribution Width 13.6 % (11.5-14.5); White Blood Count 7.2 K/mm3 (4.5-10.0)
[2024-06-18 17:49] LABS: Alanine Aminotransferase 23 U/L (6-50); Albumin Level 4.7 g/dL (3.5-5.1); Alkaline Phosphatase 63 U/L (38-126); Anion Gap 14 mmol/L (4-12); Aspartate Amino Transferase 23 U/L (17-59); Bilirubin,Total 0.7 mg/dL (0.2-1.3); Blood Urea Nitrogen 17 mg/dL (9-20); Calcium 10.1 mg/dL (8.4-10.2); Carbon Dioxide 24 mmol/L (22-30); Chloride 101 mmol/L (98-107); Estimated CRCL calculation 85 ml/min; Estimated Glomerular Filt Rate > 60; Glucose 107 mg/dL (65-110); Potassium 4.3 mmol/L (3.4-5.0); Sodium 139 mmol/L (137-145)
[2024-06-18] MEDS: SODIUM CHLORIDE 0.9% IV 1,000 ML 999 ML IV CONT (21:58)
--- NOTE | 2024-06-18 23:23 | ED.GENADULT ---
HPI - General Adult General Chief complaint: Syncope Stated complaint: syncope Time Seen by Provider: 06/18/24 21:49 History of Present Illness HPI narrative: Patient is 78-year-old gentleman who presents emergency department with chief complaint of syncopal episode. Patient reports he has been being evaluated for static hypotension by his doctors at [place] patient reports that today he got up felt lightheaded and started to pass out for about 1-2 seconds. Patient was able be facilitated to the ground without injury the patient reports that he has had episodes where he gets lightheaded with standing up. Related Data Home Medications Medication Instructions Recorded Confirmed acetaminophen 325 mg capsule 325 mg PO TID PRN Pain 08/16/20 08/16/20 alogliptin 25 mg tablet 25 mg PO DAILY 08/16/20 08/16/20 atorvastatin 10 mg tablet 10 mg PO DAILY 08/16/20 08/16/20 cholecalciferol (vitamin D3) 50 50 mcg PO DAILY 08/16/20 08/16/20 mcg (2,000 unit) capsule diclofenac 1.5 % solution and 1 ea topical PRN PRN Pain 08/16/20 08/16/20 capsaicin 0.025 % cream topical kit duloxetine 40 mg capsule,delayed 40 mg PO DAILY 08/16/20 08/16/20 release metformin 1,000 mg tablet 1,000 mg PO BID 08/16/20 08/16/20 oxycodone 5 mg tablet 5 mg PO Q8H PRN Pain 08/16/20 08/16/20 polyethylene glycol 3350 17 gram 17 g PO DAILY 08/16/20 08/16/20 oral powder packet tamsulosin 0.4 mg capsule 0.4 mg PO DAILY 08/16/20 08/16/20 hydrocodone 7.5 mg-acetaminophen 1 tablet PO Q8H PRN Pain 08/17/20 08/17/20 325 mg tablet triamterene 75 1 tablet PO DAILY 08/17/20 08/17/20 mg-hydrochlorothiazide 50 mg tablet Allergies Allergy/AdvReac Type Severity Reaction Status Date / Time No Known Allergies Allergy Verified 06/18/24 21:58 Review of Systems Review of Systems: A 10 system review of systems was completed on the patient and is negative except for what is stated in the HPI. Nursing and ancillary documentation was reviewed. [facility] Past Medical History Medical History Anemia Benign prostatic hyperplasia Chronic idiopathic thrombocytopenia Chronic pain Diabetic peripheral neuropathy Essential hypertension Hyperlipidemia Menieres disease Obstructive sleep apnea Patient uses a dental appliance. Osteoarthritis Type 2 diabetes mellitus Last hemoglobin A1c was around 7.5%. Type 2 myocardial infarction (~08/2018) In the setting of severe sepsis due to enterocolitis. Surgical History Surgical History History of bilateral knee arthroplasty History of prostate biopsy Status post surgical removal of malignant neoplasm of skin (~02/2018) excision of skin cancer from the right eyelid. Family History Family History Mother Dementia in Parkinson's disease Father Coronary artery disease Social History Social History Social History: Surrogate decision maker: Beatriz Torres, spouse. Code status: Full code. Smoking status: Former smoker Additional smoking assessment comments: Smoked socially many years ago. Alcohol intake: former Substance use: never Additional living arrangements comments: Resides with his in [place]. 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 Gender identity (if verbalized by the patient): Male Spiritual care concerns: No Exam Narrative: GENERAL: Well-appearing, well-nourished, and in no acute distress. HEAD: Normocephalic, atraumatic. EYES: PERRLA and EOMI. ENT: Nares clear, no rhinorrhea or epistaxis. Mucous membranes moist. NECK: Supple. CHEST: Clear to auscultation. No respiratory distress. HEART: Regular rate and rhythm. No murmur heard. Normal peripheral pulses. ABDOMEN: Soft, nontender, nondisten
[2024-06-19 00:05] VITALS: BP 156/84; PULSE 69; RESP 15; O2SAT 100
== END 2024-06-19 00:05 | disposition home or self-care (01) ==
PROVIDERS: Emergency Medicine; Emergency Provider Emergency Medicine
DX: I95.1 Orthostatic hypotension (principal); I10 Essential (primary) hypertension; I25.2 Old myocardial infarction; E11.42 Type 2 diabetes mellitus with diabetic polyneuropathy; E78.5 Hyperlipidemia, unspecified; D69.3 Immune thrombocytopenic purpura; D64.9 Anemia, unspecified; N40.0 Benign prostatic hyperplasia without lower urinary tract symptoms; H81.09 Meniere's disease, unspecified ear; G47.33 Obstructive sleep apnea (adult) (pediatric); M19.90 Unspecified osteoarthritis, unspecified site; Z96.653 Presence of artificial knee joint, bilateral; Z85.828 Personal history of other malignant neoplasm of skin; Z87.891 Personal history of nicotine dependence; Z79.84 Long term (current) use of oral hypoglycemic drugs; Z79.899 Other long term (current) drug therapy
CPT/HCPCS: 36415; 71046; 80053; 85025; 85055; 93005; 96360; 99284; J7030

== ENCOUNTER 2025-01-27 11:56 | Emergency (ER) | payer MEDICARE, OTHER, SELFPAY ==
--- NOTE | ~2025-01-27 | XR_ITS ---
XR finger 3rd LT min 2V Ordering provider: Kiran Pimentel MD History: . distal lac . Comparison: None. FINDINGS: BONES: No acute fracture or dislocation. JOINT SPACES: Normal. SOFT TISSUES: Normal. IMPRESSION: No acute osseous abnormality. Reviewed, dictated and finalized at location A.
--- NOTE | ~2025-01-27 | XR_ITS ---
XR finger 4th LT min 2V Ordering provider: Kiran Pimentel MD History: . Distal amputation . Comparison: None. FINDINGS: BONES: Fracture of the tuft of the distal phalanx of the left fourth finger. JOINT SPACES: Normal. SOFT TISSUES: Missing soft tissues seen in the tip of the fourth finger. IMPRESSION: Fracture of the tuft of the distal phalanx of the fourth finger. Reviewed, dictated and finalized at location A.
[2025-01-27 12:20] VITALS: BP 103/55; PULSE 93; RESP 17; TEMP 36.6; O2SAT 100
--- NOTE | 2025-01-27 14:03 | ED.GENADULT ---
HPI - General Adult General Chief complaint: Wound/Laceration <Kiran Pimentel MD - Last Filed: 01/27/25 22:15> Stated complaint: finger lac - saw <Kiran Pimentel MD - Last Filed: 01/27/25 22:15> Time Seen by Provider: 01/27/25 13:33 <Kiran Pimentel MD - Last Filed: 01/27/25 22:15> History of Present Illness HPI narrative: 79-year-old male presents emergency department for evaluation of the distal tip of his 4th left finger. Patient was working with a a engineer technician and inadvertently lacerated the distal tip of his left 3rd finger and amputated the distal tip of his left 4th finger. <Kiran Pimentel MD - Last Filed: 01/27/25 22:15> Related Data Home medications: Home Medications ?Medication ?Instructions ?Recorded ?Confirmed ?Last Taken ?Type acetaminophen 325 mg capsule 325 mg PO TID PRN Pain 08/16/20 08/16/20 Unknown History alogliptin 25 mg tablet 25 mg PO DAILY 08/16/20 08/16/20 Unknown History atorvastatin 10 mg tablet 10 mg PO DAILY 08/16/20 08/16/20 Unknown History cholecalciferol (vitamin D3) 50 50 mcg PO DAILY 08/16/20 08/16/20 Unknown History mcg (2,000 unit) capsule diclofenac 1.5 % solution and 1 ea topical PRN PRN Pain 08/16/20 08/16/20 Unknown History capsaicin 0.025 % cream topical kit duloxetine 40 mg capsule,delayed 40 mg PO DAILY 08/16/20 08/16/20 Unknown History release metformin 1,000 mg tablet 1,000 mg PO BID 08/16/20 08/16/20 Unknown History oxycodone 5 mg tablet 5 mg PO Q8H PRN Pain 08/16/20 08/16/20 Unknown History polyethylene glycol 3350 17 gram 17 g PO DAILY 08/16/20 08/16/20 Unknown History oral powder packet tamsulosin 0.4 mg capsule 0.4 mg PO DAILY 08/16/20 08/16/20 Unknown History hydrocodone 7.5 mg-acetaminophen 1 tablet PO Q8H PRN Pain 08/17/20 08/17/20 Unknown History 325 mg tablet triamterene 75 1 tablet PO DAILY 08/17/20 08/17/20 Unknown History mg-hydrochlorothiazide 50 mg tablet <Kiran Pimentel MD - Last Filed: 01/27/25 22:15> Allergies/adverse reactions: Allergies Allergy/AdvReac Type Severity Reaction Status Date / Time No Known Allergies Allergy Verified 06/18/24 21:58 <Kiran Pimentel MD - Last Filed: 01/27/25 22:15> Review of Systems Review of Systems: All systems reviewed & are unremarkable except as noted in HPI and below <Kiran Pimentel MD - Last Filed: 01/27/25 22:15> [facility] Past Medical History Medical History: Medical History (Updated 01/27/25 @ 14:51 by Kiran Pimentel MD) Obstructive sleep apnea Patient uses a dental appliance. Essential hypertension (~01/27/25) Menieres disease Type 2 myocardial infarction (~08/2018) In the setting of severe sepsis due to enterocolitis. Hyperlipidemia Chronic idiopathic thrombocytopenia Anemia Diabetic peripheral neuropathy Osteoarthritis Type 2 diabetes mellitus Last hemoglobin A1c was around 7.5%. Benign prostatic hyperplasia Chronic pain <Kiran Pimentel MD - Last Filed: 01/27/25 22:15> Surgical History Surgical History: Surgical History History of bilateral knee arthroplasty Status post surgical removal of malignant neoplasm of skin (~02/2018) excision of skin cancer from the right eyelid. History of prostate biopsy <Kiran Pimentel MD - Last Filed: 01/27/25 22:15> Family History Family History: Family History Mother Dementia in Parkinson's disease Father Coronary artery disease <Kiran Pimentel MD - Last Filed: 01/27/25 22:15> Social History Social History: Social History Social History: Surrogate decision maker: Beatriz Torres, spouse. Code status: Full code. Smoking status: Former smoker Additional smoking assessment comments: Smoked socially many years ago. Alcohol intake: former Substance use: never Additional living arrangements comments: Resides with his in [place]. 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 Gender identity (if verbalized by the patient): Male Spiritual care concerns: No <Kiran Pimentel MD - Last Filed: 01/27/25 22:15> Exam Narrative: APPEARANCE: Well appearing, no pain, no distress, well-nourished. HEAD: normocephalic, atraumatic. EYES: PERRLA/EOMI, conjunctivae clear. NOSE: Normal no drainage EARS:TMS clear with good light reflex. THROAT: Pharynx clear, no exudate. NECK: Supple. No adenopathy, no masses. RESPIRATORY: Airway patent, respirations nonlabored. Clear to auscultation bilaterally, no rales, rhonchi, wheezing. CARDIOVASCULAR: Regular rate and rhythm without murmurs rubs or gallops. ABDOMINAL: Soft, nontender, nondistended, normal bowel sounds MUSCULOSKELETAL: Laceration of the distal aspect of the left 3rd finger and amputation of the distal aspect of the left 4th finger NEURO: Alert. Cranial nerves II through XII intact. Good gait. Good coordination SKIN: Warm, dry. Normal Color <Kiran Pimentel MD - Last Filed: 01/27/25 22:15> Course Vital Signs Vital signs: Vital Signs Temperature 97.8 F 01/27/25 12:20 Pulse Rate 93 01/27/25 12:20 Respiratory Rate 17 01/27/25 12:20 Blood Pressure 103/55 L 01/27/25 12:20 Pulse Oximetry 100 01/27/25 12:20 Oxygen Delivery Room Air 01/27/25 12:20 Temperature 98.4 F 01/27/25 16:42 Pulse Rate 78 01/27/25 16:42 Respiratory Rate 17 01/27/25 16:42 Blood Pressure 137/65 01/27/25 16:42 Pulse Oximetry 98 01/27/25 16:42 Oxygen Delivery Room Air 01/27/25 12:20 <Kiran Pimentel MD - Last Filed: 01/27/25 22:15> Vital Signs Temperature 97.8 F 01/27/25 12:20 Pulse Rate 93 01/27/25 12:20 Respiratory Rate 17 01/27/25 12:20 Blood Pressure 103/55 L 01/27/25 12:20 Pulse Oximetry 100 01/27/25 12:20 Oxygen Delivery Room Air 01/27/25 12:20 Temperature 98.4 F 01/27/25 16:42 Pulse Rate 78 01/27/25 16:42 Respiratory Rate 17 01/27/25 16:42 Blood Pressure 137/65 01/27/25 16:42 Pulse Oximetry 98 01/27/25 16:42 Oxygen Delivery Room Air 01/27/25 12:20 <Joseline Walls APRN - Last Filed: 01/27/25 16:07> Procedures Laceration Laceration 1: Date: 01/27/25 <Joseline Walls [employer] - Last Filed: 01/27/25 16:07> Time: 15:45 <Joseline Walls [employer] - Last Filed: 01/27/25 16:07> Site: hand <Joseline Walls [employer] - Last Filed: 01/27/25 16:07> Side (If applicable): left <Joseline Walls [employer] - Last Filed: 01/27/25 16:07> Description: flap <Joseline Walls [employer] - Last Filed: 01/27/25 16:07> Depth: simple, single layer <Joseline Walls [employer] - Last Filed: 01/27/25 16:07> Local Anesthetic: lidocaine 1% <Joseline Walls [employer] - Last Filed: 01/27/25 16:07> Amount of anesthesia used (mL): 10 <Joseline Walls APRN - Last Filed: 01/27/25 16:07> Pre-repair: irrigated extensively <Joseline Walls [employer] - Last Filed: 01/27/25 16:07> ====== Skin Level ======: Skin layer closed with: nylon <Joseline Walls [employer] - Last Filed: 01/27/25 16:07> Size (cm): 5-0 <Joseline Walls [employer] - Last Filed: 01/27/25 16:07> Number of sutures: 1 <Joseline Walls [employer] - Last Filed: 01/27/25 16:07> Technique: simple, interrupted <Joseline Walls APRN - Last Filed: 01/27/25 16:07> ====== Subcutaneous Layer ======: ====== Muscle Layer ======: ====== Tendon Layer ======: Medical Decision Making MDM Narrative Medical decision making narrative: 71-year-old male presenting emergency department for evaluation for injuries to 3rd and 4th fingers. Laceration were is repaired as described above and patient's finger laceration/amputation was also repaired and placed in a sterile dressing. Patient was started on antibiotics and Dr. dolan was consulted and patient will have close outpatient follow-up. Patient was updated results of the workup and plan for outpatient follow-up. All questions concerns were addressed. <Kiran Pimentel MD - Last Filed: 01/27/25 22:15> Differential Diagnosis Differential Diagnosis: Finger laceration, finger amputation <Kiran Pimentel MD - Last Filed: 01/27/25 22:15> Vital Signs Vital Signs: Vital Signs Temperature 97.8 F 01/27/25 12:20 Pulse Rate 93 01/27/25 12:20 Respiratory Rate 17 01/27/25 12:20 Blood Pressure 103/55 L 01/27/25 12:20 Pulse Oximetry 100 01/27/25 12:20 Oxygen Delivery Room Air 01/27/25 12:20 Temperature 98.4 F 01/27/25 16:42 Pulse Rate 78 01/27/25 16:42 Respiratory Rate 17 01/27/25 16:42 Blood Pressure 137/65 01/27/25 16:42 Pulse Oximetry 98 01/27/25 16:42 Oxygen Delivery Room Air 01/27/25 12:20 <Kiran Pimentel MD - Last Filed: 01/27/25 22:15> Vital Signs Temperature 97.8 F 01/27/25 12:20 Pulse Rate 93 01/27/25 12:20 Respiratory Rate 17 01/27/25 12:20 Blood Pressure 103/55 L 01/27/25 12:20 Pulse Oximetry 100 01/27/25 12:20 Oxygen Delivery Room Air 01/27/25 12:20 Temperature 98.4 F 01/27/25 16:42 Pulse Rate 78 01/27/25 16:42 Respiratory Rate 17 01/27/25 16:42 Blood Pressure 137/65 01/27/25 16:42 Pulse Oximetry 98 01/27/25 16:42 Oxygen Delivery Room Air 01/27/25 12:20 <Joseline Walls APRN - Last Filed: 01/27/25 16:07> Imaging Data Radiologist's impression: Impressions Finger X-Ray 01/27/25 14:18 IMPRESSION: No acute osseous abnormality. Finger X-Ray 01/27/25 14:19 IMPRESSION: Fracture of the tuft of the distal phalanx of the fourth finger. <Kiran Pimentel MD - Last Filed: 01/27/25 22:15> Discharge Plan Discharge Clinical Impression: Avulsion of finger tip, Laceration of finger <Kiran Pimentel MD - Last Filed: 01/27/25 22:15> Patient Disposition: Home, Self-Care <Kiran Pimentel MD - Last Filed: 01/27/25 22:15> Condition: Stable <Kiran Pimentel MD - Last Filed: 01/27/25 22:15> Instructions: Antibiotic Form, Laceration (ED) <Kiran Pimentel MD - Last Filed: 01/27/25 22:15> Additional Instructions: Antibiotic as directed. Have close follow-up with Plastic surgery. Take your home [place] as directed and replace with a [place] 10/325 once daily as needed. <Kiran Pimentel MD - Last Filed: 01/27/25 22:15> Patient Language: Northern Irish <Kiran Pimentel MD - Last Filed: 01/27/25 22:15> Prescriptions: New hydrocodone-acetaminophen 10-325 mg tablet 1 tablet PO DAILY 5 Days Qty: 5 0RF cephalexin 500 mg capsule 500 mg PO Q8H 7 Days Qty: 21 0RF No Action atorvastatin 10 mg Tablet 10 mg PO DAILY tamsulosin 0.4 mg Capsule 0.4 mg PO DAILY metformin 1,000 mg Tablet 1,000 mg PO BID oxycodone 5 mg Tablet 5 mg PO Q8H PRN (Reason: Pain) acetaminophen 325 mg Capsule 325 mg PO TID PRN (Reason: Pain) cholecalciferol (vitamin D3) 50 mcg (2,000 unit) Capsule 50 mcg PO DAILY alogliptin 25 mg Tablet 25 mg PO DAILY duloxetine 40 mg Capsule,Delayed Release(Dr/Ec) 40 mg PO DAILY diclofenac-capsaicin 1.5-0.025 % Kit, Cream And Solution 1 ea topical PRN PRN (Reason: Pain) Rx Instructions: Apply small amount to skin as needed to painful areas. polyethylene glycol 3350 17 gram Powder In Packet 17 g PO DAILY hydrocodone-acetaminophen 7.5-325 mg Tablet 1 tablet PO Q8H PRN (Reason: Pain) triamterene-hydrochlorothiazid 75-50 mg Tablet 1 tablet PO DAILY magnesium oxide 400 mg (241.3 mg magnesium) Tablet 400 mg PO QAM Qty: 30 0RF <Kiran Pimentel MD - Last Filed: 01/27/25 22:15> Follow-up/Referrals: Antonio Dolan MD [Physician] - [facility] [Primary Care Provider] - <Kiran Pimentel MD - Last Filed: 01/27/25 22:15>
--- OUTSIDE RECORDS SUMMARY | 2025-01-27 14:24 | XMS_ITS | Clinical Summary ---
Author Organization [facility] Address [address] [place] [address] Care Team Providers Care Baseball Player Name Role Phone Juan Ha MD Primary Care Provider [phone] Michelle Barbosa RN Unavailable Unavailable Juan Joshi I OD Unavailable [phone] [facility] Unavailab le Source Comments [facility],non-owned Affiliates and Associated Physician Practices is amultiple site organization consisting of ambulatory clinics and hospital sitesin [place], [place], [place] and [place]. This disclosure is being madepursuant to the Care Everywhere program and may not contain all information available regarding this patient. Last updated 18.[facility] Allergies Active Allergy Reactions Criticality Noted Date Comments Atorvastatin Other 02/18/2021 Rosuvastatin Other 02/26/2021 Simvastatin Other Medium 07/29/2019 Medications * Be aware that medications may not be up to date on this document. Alwaysverify current medications with the patient. Medication Sig Dispensed Refills Start Date End Date Status DULoxetine (CYMBALTA) 20 MG capsule Take 60 mg by mouth DAILY 01/18/2018 Active triamterene-hydr oCHLOROthiazide (MAXZIDE-25) 37.5-25 MG tablet Take 1 tablet by mouth DAILY. 90 tablet 3 02/06/2018 Active metFORMIN (GLUCOPHAGE) 500 MG tablet Take 2 tablets by mouth 2 times daily with morning and evening meal 60 tablet 3 05/31/2018 Active tamsulosin (FLOMAX) 0.4 MG capsule Take 1 capsule by mouth once daily At the same time every day after a meal. 1 capsule 12/03/2019 Active atorvastatin (LIPITOR) 20 MG tablet Take 10 mg by mouth once daily 1 tablet 07/14/2020 Active polyethylene glycol 3350 (MIRALAX) 17 GM/SCOOP powder Take 17 g by mouth A ctive methocarbamol (ROBAXIN) 500 MG tablet TAKE 1 TABLET BY MOUTH EVERY 6 HOURS NEEDED FOR MUSCLE SPASM 05/17/2021 Active HYDROcodone-acet aminophen (NORCO) 7.5-325 MG tablet Take 1 tablet by mouth every 6 hours as needed for Pain Active alogliptin (NESINA) 25 MG tablet Take 25 mg by mouth once daily Active gabapentin (NEURONTIN) 300 MG capsule TAKE ONE CAPSULE BY MOUTH AT BEDTIME FOR 7 DAYS, THEN TAKE ONE CAPSULE TWICE A DAY FOR 7 DAYS, THEN TAKE ONE CAPSULE THREE TIMES A DAY FOR PAIN 12/08/2021 Active sildenafil (VIAGRA) 100 MG tablet TAKE ONE TABLET BY MOUTH EVERY WEEK NEEDED FOR ERECTILE DYSFUNCTION (TAKE 60 MINUTES PRIOR TO SEXUAL ACTIVITY) - LIMIT 4 DOSES PER 30 DAYS 10/27/2021 Active Cholecalciferol 50 MCG (2000 UT) TAKE ONE TABLET BY MOUTH ONCE A DAY FOR VITAMIN D DEFICIENCY. 04/23/2021 Active Cyanocobalamin 1000 MCG TAKE ONE TABLET BY MOUTH ONCE A DAY FOR B12 SUPPLEMENTATION 09/13/2021 Active diclofenac sodium (VOLTAREN) 1 % gel APPLY 2 GM TO AFFECTED AREA(S) FOUR TIMES A DAY NEEDED FOR PAIN/INFLAMMATION; NOT MORE THAN 16 GRAMS DAILY TO ANY LOWER EXTREMITY JOINT. NOT MORE THAN 8 GRAMS DAILY TO ANY UPPER EXTREMITY JOINT. MAX 32GM/DAY OVER ALL JOINTS. (MEASURE DOSE WITH RULER ATTACHED INSIDE BOX) OVER HANDS AND SHOULDERS NEEDED FOR PAIN FOR PAIN/INFLAMMATION; NOT MORE THAN 16 GRAMS DAILY TO ANY LOWER EXTREMITY JOINT. NOT MORE THAN 8 GRAMS DAILY TO ANY UPPER EXTREMITY JOINT. MAX 32GM/DAY OVER ALL JOINTS. (MEASURE DOSE WITH RULER ATTACHED INSIDE BOX) OVER HANDS AND SHOULDERS NEEDED FOR PAIN 10/29/2021 Active testosterone (ANDROGEL) 20.25 MG/ACT (1.62%) gel APPLY 3 PUMPS (60.75MG) TO AFFECTED AREA(S) ONCE A DAY (APPLY TO CLEAN DRY SKIN OF UPPER ARMS OR UPPER SHOULDER ONLY) FOR HORMONE SUPPLEMENTATION. 10/27/2021 Active acetaminophen (TYLENOL) 325 MG tablet Take 325 mg by mouth every 4 hours as needed for Fever or Pain Maximum allowable Acetaminophen amount = 4 Grams (4000 mg) / 24 hours. Active oxyCODONE, immediate release, (ROXICODONE) 5 MG tablet Take 1 (one) tablet by mouth every 6 hours as needed for Pain 10 tablet 01/18/2022 Active docusate sodium (COLACE) 100 MG capsule Take 1 (one) capsule by mouth 2 times daily as needed for Constipation (relief of difficult bowel movements) 28 capsule 01/18/2022 Active Nirmatrelvir&Rit onavir 300/100 20 x 150 MG & 10 x 100MG Oral Tablet Therapy Pack (Paxlovid)Indica tions:COVID-19 virus infection Take two 150mg tablets (300mg) of nirmatrelvir and one tablet (100mg) of ritonavir together as a single dose by mouth twice daily for 5 days. Do not crush, chew, or cut in half. 30 tablet 07/02/2022 Active Active Problems Problem Noted Date Diagnosed Date Umbilical hernia without obstruction and without gangrene 12/14/2021 Elevated PSA 12/14/2021 Testosterone deficiency in male 01/12/2021 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 Type 2 diabetes mellitus without complications 1 11/18/2016 Slow transit constipation 09/18/2017 Pure hypercholesterolemia 09/18/2017 Other chronic pain 09/18/2017 Primary osteoarthritis of left knee 09/18/2017 Idiopathic peripheral neuropathy 09/18/2017 Overview (01/14/2019): Overview: Neurologist at [facility] Neurologist at [facility] Meniere's disease 01/20/2016 Venous insufficiency (chronic) (peripheral) 07/2016 Obstructive sleep apnea 07/23/2013 Fatty (change of) liver, not elsewhere classifie d 07/23/2013 Actinic keratosis 03/08/2012 Nevus, non-neoplastic 03/08/2012 Other seborrheic keratosis 03/08/2012 Benign lipomatous neoplasm 04/27/2009 Immunizations Name Administration Dates Next Due INFLUENZA VACCINE, TRIV. (AF LURIA, FLUZONE TRIVALENT; 6MO+) (IIV3) 08/13/2012 [employer] Modular primary monoval ent 12+ yr 0.3mL Purple cap 12/28/2020,12/06/2020 DT (AGE 0-7) 10/13/2002 FLU VACCINE QUAD IIV4 SPLIT 0.25 ML IM 09/12/2019 INFLUENZA A N0L6-06 VACCINE 10/26/2009 INFLUENZA VACCINE 10/16/2020, 8,08/03/2017,2010,10/04/2010,11/13/2006 INFLUENZA VACCINE, HIGH-DOSE , QUADR. (FLUZONE HIGH-DOSE QUADRIVALENT; 65Y+), 0.7 ML (HD-IIV4) 08/22/2017,11/22/2016,08/24/2015,2013 INFLUENZA VACCINE, QUADR. (F LUZONE; FLULAVAL; FLUARIX; AFLURIA QUADRIVALENT; 6MO+), 0.5 ML (IIV4) 09/12/2019 PNEUMOCOCCAL PPSV23 07/29/2019,01/21/2014 Pneumococcal Pcv13 Conj 02/10/2015 TDAP (7yrs+) 04/23/2021,04/29/2014 ZOSTER VACCINE, LIVE 11/23/2017 Zoster Hzv Vacc Recombinant Inj Im 10/29/2019, Family History Medical History Relation Name Comments CAD (Coronary Artery Disease) Father Status: None Known Maternal Grandfather Status: None Known Maternal Grandmother Status: Cancer Maternal Uncle colon cancer; Status: Alive Hypertension Mother Status: Alive None Known Paternal Grandfather Status: None Known Paternal Grandmother Status: Relation Name Status Comments Father Maternal Grandfather Maternal Grandmother Maternal Uncle Mother Paternal Grandfather Paternal Grandmother Social History Tobacco Use Types Packs/Day Years Used Date Smoking Tobacco: Never Smokeless Tobacco: Never Alcohol Use Standard Drinks/Week Comments Not Currently 0 (1 standard drink = 0.6 oz pur e alcohol) PHQ-2 Answer Date Recorded PHQ2 TOTAL SCORE 0 12/14/2021 Sex and Gender Information Value Date Recorded Sex Assigned at Not on file Gender Identity Not on file Sexual Orientation Not on file Last Filed Vital Signs Vital Sign Reading Time Taken Comments Blood Pressure 148/78 01/18/2022 1:00 PM CODE NUMBER STAMPER Pulse 75 01/18/2022 1:00 PM CODE NUMBER STAMPER Temperature 36.8 C (98.3 F) 01/18/2022 11:25 AM CODE NUMBER STAMPER Respiratory Rate 6 01/18/2022 1:00 PM CODE NUMBER STAMPER Oxygen Saturation 97% 01/18/2022 1:00 PM CODE NUMBER STAMPER Inhaled Oxygen Concentration - - Weight 129.7 kg (286 lb) 01/18/2022 8:05 AM CODE NUMBER STAMPER Height 200.7 cm (6' 7 ) 01/18/2022 8:05 AM CODE NUMBER STAMPER Body Mass Index 32.22 01/18/2022 8:05 AM CODE NUMBER STAMPER Plan of Treatment Health Maintenance Due Date Last Done Comments Opioid Medication Agreement - Annual 1945 DIABETES-FOOT EXAM WITH MONOFILAMENT 11/08/2019 11/08/2018, 05/28/2018, 05/24/2018 DIABETES RETINOPATHY SCREENING 06/13/2020 06/13/2018 (Done Outside Per Patient), 10/03/2016 DIABETES-HGB A1C 07/07/2021 01/07/2021, 11/2019, 12/03/2019, Additional history exists Respiratory Syncytial Virus (RSV) Vaccine Pt: or over 60 yrs (1 - 1-dose 75+ series) 2021 MEDICARE AWV 12 MONTHS 12/14/2022 12/14/2021 DIABETES-SERUM CREATININE 12/30/20222021, 07/05/2021, 07/05/2021, Additional history exists COVID-19 VACCINE ( season) 2024 12/28/2020, 12/06/2020 INFLUENZA VACCINE (#1) 2024 , 09/12/2019, 09/12/2019, Additional history exists DEPRESSION SCREENING 11/13/2024 DIABETES - URINE PROTEIN SCREENING 11/13/2024 01/07/2021, 01/11/2019, 09/18/2018, Additional history exists DTAP/TDAP/TD VACCINES (4 - Td or Tdap) 04/23/2031 04/23/2021, 04/29/2014, 10/13/2002 HEPATITIS C SCREENING Completed 09/26/2011, 011 PNEUMOCOCCAL VACCINE 50+ Completed 019, 02/10/2015, 01/21/2014 ZOSTER VACCINE Completed 10/29/2019, 07/14, 11/23/2017 HEPATITIS B VACCINE Aged Out No longe r eligible based on patient's age to complete this topic HIB VACCINE Aged Out No longer eligi ble based on patient's age to complete this topic HPV VACCINE Aged Out No longer eligi ble based on patient's age to complete this topic MENINGOCOCCAL (Group B) VACCINE SHARED DECISION-MAKING Aged Out No longer eligible based on patient's age to complete this topic MENINGOCOCCAL GROUPS A/C/Y/W VACCINE Aged Out No longer eligible based on patient's age to complete this topic Medical Devices Implanted Type Area Ballet Soloist Device Identifier Shelf Expiration Date Model / Serial / Lot Mesh Srg Ventralight St Sepra 6x4in Implanted:Qty: 1 on 01/18/2022 by Demetrius Saini MD at [facility] N/A: [employer] 08/10/2023 [id number] / / [id number] Sys Fx 37cm Cpsr Str Ss Peek Perm Hndl Implanted:Qty: 1 on 01/18/2022 by Demetrius Saini MD at [facility] N/A: [employer] 09/09/2023 [id number] / / [id number] Procedures Procedure Name Priority Date/Time Associated Diagnosis Comments COMPREHENSIVE METABOLIC PANEL Routine 12/30/2021 9:33 AM CODE NUMBER STAMPER Pure hypercholesterolemia MICROALB/CREAT RATIO URINE RANDOM PANEL Routine 01/07/2021 11:21 AM CODE NUMBER STAMPER Type 2 diabetes mellitus without complication, without long-term current use of insulin (HCC) HEMOGLOBIN A1C Routine 01/07/2021 11:21 AM CODE NUMBER STAMPER Type 2 diabetes mellitus without complication, without long-term current use of insulin (HCC) HEPATITIS C RIBA CONFIRMATION Routine 09/26/2011 5:03 PM CODE NUMBER STAMPER from Last 3 Months or Most Recently Relevant to Health Maintenance Results * (ABNORMAL) COMPREHENSIVE METABOLIC PANEL (12/30/2021 9:33 AM CODE NUMBER STAMPER) Glucose 258(H) 65 - 99 mg/dL [facility] INSURANCE BILL BUN 18 8 - 27 mg/dL [facility] INSURANCE BILL Creatinine 1.16 0.76 - 1.27 mg/dL [facility] INSURANCE BILL eGFR by MDRD 61 >59 mL/min/1. 73 [facility] INSURANCE BILL eGFR by MDRD 71 >59 mL/min/1. 73 [facility] INSURANCE BILL Comment: In accordance with recommendations from the NKF-ASN Task force, [facility] is in the process of updating its eGFR calculation to the 2020 CKD-EPI creatinine equation that estimates kidney function without a race variable. BUN/Creatinine Ratio 16 10 - 24 [facility] INSURANCE BILL Sodium 142 134 - 144 mmol/L [facility] INSURANCE BILL Potassium 4.5 3.5 - 5.2 mmol/L [facility] INSURANCE BILL Chloride 104 96 - 106 mmol/L [facility] INSURANCE BILL CO2 24 20 - 29 mmol/L [facility] INSURANCE BILL Calcium 9.5 8.6 - 10.2 mg/dL [facility] INSURANCE BILL Protein Total 6.8 6.0 - 8.5 g/dL [facility] INSURANCE BILL Albumin 4.5 3.7 - 4.7 g/dL [facility] INSURANCE BILL Globulin Total 2.3 1.5 - 4.5 g/dL [facility] INSURANCE BILL Albumin/Globulin Ratio 2.0 1.2 - 2.2 [facility] INSURANCE BILL Bilirubin Total 0.7 0.0 - 1.2 mg/dL [facility] INSURANCE BILL Alkaline Phosphatase 63 44 - 121 IU/L [facility] INSURANCE BILL AST 15 0 - 40 IU/L [facility] INSURANCE BILL ALT 16 0 - 44 IU/L [facility] INSURANCE BILL Comment:FASTING Blood BLOOD SPECIMEN / Unknown 12/30/2021 9:33 AM CODE NUMBER STAMPER 12/30/2021 Narrative Resulting Agency Comment Lab Testing performed at: [facility] [address] [facility] [id number] Juan Ha MD LAB - CHEMISTRY SWETHA CHAPPELL [facility] INSURANCE BILL [address] [place] [address] * MICROALB/CREAT RATIO URINE RANDOM PANEL (01/07/2021 11:21 AM CODE NUMBER STAMPER) Creatinine Urine 171.4 Not Estab. mg/dL [facility] INSURANCE BILL Microalbumin Urine 17.1 Not Estab. ug/mL [facility] INSURANCE BILL Microalbumin/Crea tinine Ratio 10 0 - 29 mg/g creat [facility] INSURANCE BILL Comment: Normal: 0 - 29 Moderately increased: 30 - 300 Severely increased: >300 FASTING Urine URINE SPECIMEN OBTAINED BY CLEAN CATCH PROCEDURE / Unknown 01/07/2021 11:21 AM CODE NUMBER STAMPER 01/07/2021 Narrative [facility] INSURANCE BILL - 01/08/2021 3:08 PM CODE NUMBER STAMPER A courtesy copy of this report has been sent to the patient Resulting Agency Comment [facility]: [facility] [address] [place] [phone] Juan Ha MD LAB - URINE CHEMISTR Y ORDERABLES Performing Organization Address City/[facility]/ZIP Co de Phone Number [facility] INSURANCE BILL [address] [place] [address] * (ABNORMAL) HEMOGLOBIN A1C (01/07/2021 11:21 AM CODE NUMBER STAMPER) [facility] Hemoglobin A1c 6.5(H) 4.8 - 5.6 % [facility] INSURANCE BILL Comment: . Prediabetes: 5.7 - 6.4 Diabetes: >6.4 Glycemic control for adults with diabetes: <7.0 FASTING Blood BLOOD SPECIMEN / Unknown 01/07/2021 11:21 AM CODE NUMBER STAMPER 01/07/2021 Narrative Resulting Agency Comment Lab Testing performed at: [facility] [address] [place] [phone] Juan Ha MD LAB - CHEMISTRY ORDE RABLES Performing Organization Address City/[facility]/ZIP Co de Phone Number [facility] INS[facility] BILL [address] [place] [address] * HEPATITIS C RIBA CONFIRMATION (09/26/2011 5:03 PM CODE NUMBER STAMPER) [facility] Hepatitis C Antibody <0.1 0.0 - 0.9 s/co ratio [facility] (BEAKER) Comment: Negative Not infected with HCV, unless recent infection is suspected or other evidence exists to indicate HCV infection. 09/26/2011 5:03 PM CODE NUMBER STAMPER 09/26/2011 10:05 PM CODE NUMBER STAMPER Narrative [facility] (DENISE) - 09/27/2011 7:28 AM CODE NUMBER STAMPER Performed at: 01 - [facility] [address] [id number] Geospatial Systems Integrator: Laura Ibanez MD, Phone: [phone] Historical Provider LAB - SEROLOGY OR DERABLES [facility] RED) from Last 3 Months or Most Recently Relevant to Health Maintenance Care Teams Baseball Player Relationship Specialty Start Date End Date Juan Ha MD PCP - General 07/04/16 Newcom, Michelle, swine genetics researcherPlate And Weld Inspector 02/26/19 Juan Joshi I, OD [address] [facility] [place] [address] Ear Nose Throat Physician Low Director Of Web Marketing 12/21/21 [facility] Sivan Jimenez [address] [place] [address] 12/21/21
--- OUTSIDE RECORDS SUMMARY | 2025-01-27 14:24 | XMS_ITS | Encounter Summary ---
Author Organization [facility] Address [address] [place] [address] Care Team Providers Care Grain Merchandiser Name Role Phone Juan Ha MD Primary Care Provider [phone] Encounter Details Date Type Department Care Team (Late st Contact Info) Description 10/29/2007 Outpatient Historical [facility], [address] Juan Burnett MD NO ADDRESS ON FILE Social History Tobacco Use Types Packs/Day Years Used Date Smoking Tobacco: Never Assessed Sex and Gender Information Value Date Recorded Sex Assigned at Not on file Legal Sex Male 5:29 AM STATISTICIAN THEORETICAL Gender Identity Not on file Sexual Orientation Not on file documented as of this encounter Plan of Treatment Not on file documented as of this encounter Procedures Procedure Name Priority Date/Time Associated Diagnosis Comments SOURCE, FLUID Routine 10/29/2007 7:06 PM STATISTICIAN THEORETICAL SYNOVIAL FLUID CRYSTAL Routine 10/29/2007 7:06 PM STATISTICIAN THEORETICAL CELL COUNT WITH DIFFERENTIAL, BODY FLUID Routine 10/29/2007 7:06 PM STATISTICIAN THEORETICAL documented in this encounter Results * SOURCE, FLUID (10/29/2007 7:06 PM STATISTICIAN THEORETICAL) SOURCE FLUID Knee, Right INTERFACE SYSTEM 10/29/2007 7:06 PM STATISTICIAN THEORETICAL us Juan Burnett MD HEMATOLOGY ORDERABLES Edited INTERFACE SYSTEM Refer to clinic/hospital department * SYNOVIAL FLUID CRYSTAL (10/29/2007 7:06 PM STATISTICIAN THEORETICAL) JOINT FLD CRYSTAL QTY Negative Negative INTERFACE SYSTEM CRYSTALS INTERPRETED BY: El Hill MD INTERFACE SYSTEM 10/29/2007 7:06 PM STATISTICIAN THEORETICAL Juan Burnett MD BODY FLUIDS AND STOOLS Edited Performing Organization Address [facility] Phone Number INTERFACE SYSTEM Refer to clinic/hospital department * CELL COUNT WITH DIFFERENTIAL, BODY FLUID (10/29/2007 7:06 PM STATISTICIAN THEORETICAL) WBC, FLD 2,656 /uL INTERFACE SYSTEM RBC, FLD <10,000 /uL INTERFACE SYSTEM Comment: The lower limit of linearity for RBC on the Sysmex analyzer is 10,000/uL. All fluids with lower RBC counts than this are thus reported as RBC<10,000. It should be noted that the RBC count on non-bloody fluids is typically much lower than this value. NEUTROPHILS, FLD 88 % INTERFACE SYSTEM LYMPHOCYTE, FLD 2 % INTERFACE SYSTEM MACROPHAGE, FLD 10 % INTERFACE SYSTEM CELLS COUNTED, FLD 100 WBC Counted INTERFACE SYSTEM 10/29/2007 7:06 PM STATISTICIAN THEORETICAL Juan Burnett MD BODY FLUIDS AND STOOLS Edited Performing Organization Address [facility] Phone Number INTERFACE SYSTEM Refer to clinic/hospital department documented in this encounter Visit Diagnoses Not on filedocumented in this encounter Care Teams Grain Merchandiser Relationship Specialty Start Date End Date Juan Ha MD PCP - General Internal Medicine 08/12/11 documented as of this encounter
--- OUTSIDE RECORDS SUMMARY | 2025-01-27 14:24 | XMS_ITS | Clinical Summary ---
Author Organization [facility] Address [address] [place] [address] Care Team Providers Care International Exchange Coordinator Name Role Phone Provider, Unknown Primary Care Provider Unavaila ble Medications metroNIDAZOLE (FLAGYL) 500 MG Tablet Take 1 Tab by mouth 3 times daily. 30 Tab 11/29/2018 Active Immunizations Immunization Administration Dates Next Due Covid-19, Mrna, Lnp-s, Pf, 30 Mcg/0.3 Ml Dose (P josezer) 09/10/2021 Social History Tobacco Use Types Packs/Day Years Used Date Smoking Tobacco: Never Assessed Sex and Gender Information Value Date Recorded Sex Assigned at Not on file Legal Sex Male 1:32 PM CDT Gender Identity Not on file Sexual Orientation Not on file Plan of Treatment Health Maintenance Due Date Last Done Comments Hepatitis C Virus (HCV) Screening 1945 TdaP Immunization 1945 Pneumococcal Immunization (5 0+ years) (1 of 1 - PCV) 1996 Zoster Immunization (1 of 2) 1996 Respiratory Syncytial Virus (RSV) Immunization (Adult) (1 - 1-dose 75+ series) 2021 Influenza Immunization (#1) 2024 12/0 02/2020, 09/12/2019 SARS-COV-2 Immunization ( - season) 2024 09/10/2021 Colonoscopy High Risk Discontinued 08/20/2018 Colonoscopy Discontinued 08/20/2018 Colorectal Cancer Screening Discontinued Cologuard Discontinued Hepatitis B Immunization Aged Out No longer eligible based on patient's age to complete this topic Immunochemical Fecal Occult Blood Discontinued Meningococcal Immunization (ACWY) Aged Out No longer eligible based on patient's age to complete this topic Rotavirus Immunization Aged Out No lo nger eligible based on patient's age to complete this topic Procedures Procedure Name Priority Date/Time Associated Diagnosis Comments COLONOSCOPY Routine 08/20/2018 from Last 3 Months or Most Recently Relevant to Health Maintenance Results * COLONOSCOPY (08/20/2018) Frederic Zimmer DO PROCEDURE/MINOR SURGICAL ORDERA BLES Final Result from Last 3 Months or Most Recently Relevant to Health Maintenance Insurance MEDICARE Care Teams International Exchange Coordinator Relationship Specialty Start Date End Date Provider, Unknown UNKNOWN PCP - General 08/21/18
--- OUTSIDE RECORDS SUMMARY | 2025-01-27 14:24 | XMS_ITS | Encounter Summary ---
Author Organization [facility] Address [address] [place] [address] Care Team Providers Care Motor Assembly Supervisor Name Role Phone Juan Ha MD Primary Care Provider [phone] Encounter Details Date Type Department Care Team (Late st Contact Info) Description 03/30/2009 Outpatient Historical [facility] Juan Ramos MD NO ADDRESS ON FILE Social History Tobacco Use Types Packs/Day Years Used Date Smoking Tobacco: Never Assessed Sex and Gender Information Value Date Recorded Sex Assigned at Not on file Legal Sex Male 5:29 AM WASTE TRANSPORTATION TECHNICIAN Gender Identity Not on file Sexual Orientation Not on file documented as of this encounter Plan of Treatment Not on file documented as of this encounter Procedures Procedure Name Priority Date/Time Associated Diagnosis Comments XR KNEE 1 OR 2 VW RIGHT Routine 03/30/2009 1:37 PM CDT documented in this encounter Results * XR KNEE 1 OR 2 VW RIGHT (03/30/2009 1:37 PM CDT) Anatomical Region Laterality Modality Lower Extremity Other 03/30/2009 1:37 PM CDT Narrative 04/27/2009 5:34 PM CDT [address] [address] Admit Date: 03/30/2009 DUANE TORRES Sex: M Admit Prov: JUAN RAMOS Date: 1945 Primary Care Prov: CMRN: [id number] Room: [facility] SSN: [id number] IMAGING SERVICES Ordering Prov: JUAN RAMOS Accession Number: [id number] Interpretation This procedure was performed at the request of the orthopedic physician. Please see the orthopedic physician s report for details, which can be found in the patient s medical record. Dictated by: RADIOLOGY, DEPARTMENT O Electronically signed by: RADIOLOGY, DEPARTMENT 04/27/2009 17:32 Transcribed: 04/27/2009 15:44 AMK Procedure Note Radiology, Radiologist - 04/27/2009 [facility] [place] [address], [place] [address] Admit Date: 03/30/2009 TORRES DUANE Oscar Sex: M Admit Prov: JUAN RAMOS Date:1945 Primary Care Prov: CMRN: [id number] Room: [facility] SSN: [id number] IMAGING SERVICES Ordering Prov: JUAN RAMOS Interpretation This procedure was performed at the request of the orthopedicphysician. Please see the orthopedic physician s report for details, which canbe found in the patient s medical record. Dictated by: RADIOLOGY, DEPARTMENT O Electronically signed by: RADIOLOGY, DEPARTMENT 04/27/2009 17:32 Transcribed: 04/27/2009 15:44 AMK Juan Ramos MD DIAGNOSTIC IMAGING ORDERABLES Fi nal Result documented in this encounter Visit Diagnoses Not on filedocumented in this encounter Care Teams Motor Assembly Supervisor Relationship Specialty Start Date End Date Juan Ha MD PCP - General Internal Medicine 08/12/11 documented as of this encounter
--- OUTSIDE RECORDS SUMMARY | 2025-01-27 14:24 | XMS_ITS | Encounter Summary ---
Author Organization [facility] Address [address] [place] [address] Care Team Providers Care Health Informatics Instructor Name Role Phone Juan Ha MD Primary Care Provider [phone] Michelle Barbosa RN Unavailable Unavailable Juan Joshi I OD Unavailable [facility] Unavailab le Encounter Details Date Type Department Care Team (Late st Contact Info) Description 12/23/2021 Telephone [facility] General [facility] [address] [place] [address] Demetrius Saini MD [address] [facility] [address] [place] [id number] Social History Tobacco Use Types Packs/Day Years Used Date Smoking Tobacco: Never Smokeless Tobacco: Never Alcohol Use Standard Drinks/Week Comments Yes 0 (1 standard drink = 0.6 oz pur e alcohol) PHQ-2 Answer Date Recorded PHQ2 TOTAL SCORE 0 12/14/2021 Sex and Gender Information Value Date Recorded Sex Assigned at Not on file Gender Identity Not on file Sexual Orientation Not on file documented as of this encounter Plan of Treatment Not on file documented as of this encounter Visit Diagnoses Not on filedocumented in this encounter Care Teams Health Informatics Instructor Relationship Specialty Start Date End Date Juan Ha MD PCP - General 07/04/16 Michelle Barbosa, cleaning laborerMarketing Professional 02/26/19 Juan Joshi I, OD [address] [facility] [place] [address] Staff Physical Therapy Assistant Low Sheriffs Officer 12/21/21 [facility], Sivan Jimenez [address] [place] [address] 12/21/21 documented as of this encounter
--- OUTSIDE RECORDS SUMMARY | 2025-01-27 14:24 | XMS_ITS | Encounter Summary ---
Author Organization [facility] Address 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
--- OUTSIDE RECORDS SUMMARY | 2025-01-27 14:24 | XMS_ITS | Encounter Summary ---
Author Organization [facility] Address 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 Gender Identity Not on file Sexual Orientation Not on file documented as of this encounter Plan of Treatment Not on file documented as of this encounter Procedures Procedure Name Priority Date/Time Associated Diagnosis Comments XR JOINT SURVEY 1 VW 2+ JOINTS Routine 08/04/2008 2:46 PM CDT XR KNEE 1 OR 2 VW RIGHT Routine 08/04/2008 2:04 PM CDT documented in this encounter Results * XR JOINT SURVEY 1 VW 2+ JOINTS (08/04/2008 2:46 PM CDT) Anatomical Region Laterality Modality Other 08/04/2008 2:46 PM CDT Narrative 08/12/2008 6:54 PM CDT [id number] [place], [place] [address] Admit Date: 08/04/2008 DUANE TORRES Sex: M Admit Prov: JUAN RAMOS Date: 1945 Primary Care Prov: PCP, UNKNOWN CMRN: [id number] Room: [facility]: [id number] IMAGING SERVICES Ordering Prov: JUAN RAMOS Accession Number: [id number] Interpretation This procedure was performed at the request of the orthopedic physician. Please see the orthopedic physician s report for details, which can be found in the patient s medical record. Dictated by: RADIOLOGY, DEPARTMENT O Electronically signed by: RADIOLOGY, DEPARTMENT 08/12/2008 18:53 Transcribed: 08/12/2008 18:48 AMK Procedure Note Radiology, Radiologist - 08/12/[address] [address] Admit Date: 08/04/2008 TORRES DUANE Sex: M Admit Prov: JUAN RAMOS Date:1945 Primary Care Prov: PCP, UNKNOWN CMRN: [id number] Room: [facility]: [id number] IMAGING SERVICES Ordering Prov: JUAN RAMOS Interpretation This procedure was performed at the request of the orthopedicphysician. Please see the orthopedic physician s report for details, which canbe found in the patient s medical record. Dictated by: RADIOLOGY, DEPARTMENT O Electronically signed by: RADIOLOGY, DEPARTMENT 08/12/2008 18:53 Transcribed: 08/12/2008 18:48 AMK Juan Ramos MD DIAGNOSTIC IMAGING ORDERABLES Fi nal Result * XR KNEE 1 OR 2 VW RIGHT (08/04/2008 2:04 PM CDT) Anatomical Region Laterality Modality Lower Extremity Other 08/04/2008 2:04 PM CDT Narrative 08/12/2008 6:54 PM [address]T [address] [address] Admit Date: 08/04/2008 DARON DUANE Sex: M Admit Prov: JUAN RAMOS Le[place] Date: 1945 Primary Care Prov: PCP, UNKNOWN CMRN: [id number] Room: [facility]: [id number] IMAGING SERVICES Ordering Prov: JUAN RAMOS Accession Number: [id number] Interpretation This procedure was performed at the request of the orthopedic physician. Please see the orthopedic physician s report for details, which can be found in the patient s medical record. Dictated by: RADIOLOGY, DEPARTMENT O Electronically signed by: RADIOLOGY, DEPARTMENT 08/12/2008 18:53 Transcribed: 08/12/2008 18:48 AMK Procedure Note Radiology, Radiologist - 08/12/2008 [facility] [address] [place], [place] [address] Admit Date: 08/04/2008 DARON DUANE Sex: M Admit Prov: RACHELJUAN Date:1945 Primary Care Prov: PCP, UNKNOWN CMRN: [id number] [facility] [id number] IMAGING SERVICES Ordering Prov: JUAN RAMOS Interpretation This procedure was performed at the request of the orthopedicphysician. Please see the orthopedic physician s report for details, which canbe found in the patient s medical record. Dictated by: RADIOLOGY, DEPARTMENT O Electronically signed by: RADIOLOGY, DEPARTMENT 08/12/2008 18:53 Transcribed: 08/12/2008 18:48 AMK Juan Ramos MD DIAGNOSTIC IMAGING ORDERABLES Fi nal Result documented in this encounter Visit Diagnoses Not on filedocumented in this encounter Care Teams Fireman Relationship Specialty Start Date End Date Juan Ha MD PCP - General Internal Medicine 08/12/11 documented as of this encounter
--- OUTSIDE RECORDS SUMMARY | 2025-01-27 14:24 | XMS_ITS | Encounter Summary ---
Author Organization [facility] Address [address] [place] [address] Care Team Providers Care Pierce And Shave Press Operator Name Role Phone Unknown, Notinfile Primary Care Provider Unavail able No, Physician Primary Care Provider [phone] Demetrius Espitia MD Unavailable [phone] Henry Barton MD Unavailable [phone] Encounter Details Date Type Department Care Team (Late st Contact Info) Description 06/30/2023 Telephone [facility] Medical Office Building 2 Radiation Oncology [address] [place] [address] Demetrius Espitia MD [address] [place] [address] Social History Tobacco Use Types Packs/Day Years Used Date Smoking Tobacco: Former Cigarettes AUDIT-C Answer Date Recorded Q1: How often do you have a drink containing alcohol? Never 11/25/2022 Q2: How many drinks containi ng alcohol do you have on a typical day when you are drinking? Patient does not drink Q3: How often do you have si x or more drinks on one occasion? 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 TECH Gender Identity Not on file Sexual Orientation Not on file documented as of this encounter Plan of Treatment Not on file documented as of this encounter Visit Diagnoses Not on filedocumented in this encounter Care Teams Pierce And Shave Press Operator Relationship Specialty Start Date End Date Unknown, Notinfile PCP - General 06/20/23 07/25/23 No, Physician PCP - General 07/26/23 Demetrius Espitia MD Radiation Oncologist Radiation Oncology 07/26/23 Henry Barton MD [address] [facility] [address] [place] [address] Consulting Physician Urology 07/26/23 documented as of this encounter
--- OUTSIDE RECORDS SUMMARY | 2025-01-27 14:24 | XMS_ITS | Encounter Summary ---
Author Organization [facility] Address 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
--- OUTSIDE RECORDS SUMMARY | 2025-01-27 14:24 | XMS_ITS | Referral Summary ---
Author Organization [facility] [address] [facility] [address] Address [address] [place] [id number] Care Team Providers Care Reception Centre Manager Name Role Phone No, Physician Primary Care Provider [phone] Demetrius Espitia MD Unavailable [phone] Henry Barton MD Unavailable [phone] Encounters Date Type Department Care Team Description 12/11/2024 2:57 PM VEHICLE CONTROLS ENGINEER - 12/11/2024 11:59 PM VEHICLE CONTROLS ENGINEER Hospital Encounter [facility] - [place] [address] [place] [address] Pituitary adenoma (HCC) Discharge Disposition: Discharge to home or self care 12/11/2024 1:00 PM VEHICLE CONTROLS ENGINEER Office Visit [facility] Neurosurgery [facility] Floor 1, [address] [place] [address] Herbert Sneed MD Pituitary adenoma (HCC) (Primary Dx) 12/11/2024 7:00 AM VEHICLE CONTROLS ENGINEER - 12/11/2024 11:59 PM VEHICLE CONTROLS ENGINEER Hospital Encounter [facility] - MRI [address] [place] [address] Pituitary adenoma (HCC) Discharge Disposition: Discharge to home or self care 12/05/2024 Telephone [facility] Neurosurgery [facility] Floor 1, [address] [place] [address] Herbert Sneed MD 11/26/2024 Orders Only [facility] Neurosurgery [facility] Floor 1, [address] [place] [address] Herbert Sneed MD Pituitary adenoma (HCC) (Primary Dx) 11/11/2024 Orders Only [facility] Neurosurgery [address] [facility] 6th [place] [address] Herbert Sneed MD Pituitary adenoma (HCC) (Primary Dx) from Last 3 Months Allergies Active Allergy Reactions Criticality Noted Date Comments Atorvastatin Other (See comments) Low 02/18/2021 Rosuvastatin Other (See comments) Low 02/26/2021 Simvastatin Other (See comments) Medium 07/29/2019 Medications metFORMIN (GLUCOPHAGE) 1,000 mg tablet Acti ve polyethylene glycol (MIRALAX) 17 gram packet Take 1 packet (17 g total) by mouth daily Active acetaminophen (TYLENOL) 325 mg tablet Take 1 tablet (325 mg total) by mouth 3 (three) times a day Active atorvastatin (LIPITOR) 10 mg tablet Take 10 mg by mouth daily Active diclofenac sodium (VOLTAREN) 1 % gel Apply topically Acti ve sildenafiL (VIAGRA) 100 mg tablet Take 100 mg by mouth once a week [address] (CYMBALTA) 60 mg capsule Take 1 capsule (60 mg total) by mouth daily Active cholecalciferol (VITAMIN D-3) 2000 unit capsule 1 capsule (2,000 Units total) Active triamterene-hyd roCHLOROthiazid e (MAXZIDE,DYAZID E) 37.5-25 mg per tablet/capsule Take 1 tablet/capsule by mouth daily Active alogliptin 25 mg tablet Take by mouth Active tamsulosin (FLOMAX) 0.4 mg extended release capsule 0.4 mg Acti ve gabapentin (NEURONTIN) 300 mg capsule Take 1 capsule (300 mg total) by mouth 3 (three) times a day 90 capsule 2 Active HYDROcodone-ashish taminophen (NORCO) 7.5-325 mg per tabletIndicatio ns:Pain Take 1 tablet by mouth every 6 (six) hours as needed for pain Active empagliflozin (JARDIANCE) 25 mg tablet Take 0.5 tablets (12.5 mg total) by mouth daily 3 Active pravastatin (PRAVACHOL) 40 mg tablet Take 0.5 tablets (20 mg total) by mouth nightly 04/12/202 3 Active tiZANidine (Zanaflex) 4 mg tablet 0.5 tablets (2 mg total) 3 Active chlorhexidine (PERIDEX) 0.12 % solution RINSE WITH 1/2 OUNCE FOR 30 SECONDS THEN SPIT OUT TWICE DAILY FOR ONE WEEK. DO NOT SWALLOW. 3 Active ciprofloxacin-d exAMETHasone (CIPRODEX) otic suspension Administer into affected ear(s) 7 Active clindamycin (CLEOCIN) 150 mg capsule 3 Active testosterone 20.25 mg/1.25 gram (1.62 %) gel in metered-dose pump Apply topically 4 Active pregabalin (LYRICA) 100 mg capsule Take 1 capsule (100 mg total) by mouth 4 Active camphor-menthoL (SARNA) lotion Apply topically 4 Active ketoconazole (NIZORAL) 2 % shampoo Apply topically 4 Active clobetasoL (TEMOVATE) 0.05 % external solution Apply topically 4 Active cetirizine (ZyrTEC) 10 mg tablet Take 1 tablet (10 mg total) by mouth 4 Active Active Problems Problem Noted Date Diagnosed Date Personal history of radiation therapy 12/27/2023 Prostate cancer 06/30/2023 Cancer Staging:Clinical stage from 07/26/2023:Stage IIC(cT1c, cN0, cM0, PSA: 7.7, Grade Group: 3) - Signed by Demetrius Espitia MD on 07/26/2023 Pituitary adenoma 03/18/2022 Elevated PSA 12/14/2021 Umbilical hernia without obstruction and without gangrene 12/14/2021 Primary hypogonadism in male 01/12/2021 Crohn's disease of both smal l and large intestine with rectal bleeding 12/18/2018 Basal cell carcinoma (BCC) o f skin of right eyelid including canthus 05/23/2018 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 Idiopathic peripheral neuropathy 09/18/2017 Overview (03/18/2022): Overview: Neurologist at [facility] Neurologist at [facility] Other chronic pain 09/18/2017 Primary osteoarthritis of left knee 09/18/2017 Pure hypercholesterolemia 09/18/2017 Slow transit constipation 09/18/2017 Type 2 diabetes mellitus without complications 1 11/18/2016 External hemorrhoid, thrombosed 05/08/2017 Venous insufficiency (chronic) (peripheral) 07/2016 Fatty (change of) liver, not elsewhere classifie d 07/23/2013 Other seborrheic keratosis 03/08/2012 Nevus, non-neoplastic 03/08/2012 Arthritis 01/31/2012 HTN (hypertension) 01/31/2012 Meniere's disease 01/31/2012 Obstructive sleep apnea syndrome 01/31/2012 Thrombocytopenia 01/31/2012 Benign lipomatous neoplasm 04/27/2009 Resolved Problems Problem Noted Date Diagnosed Date Resolved Date Pituitary mass 03/18/2022 11/21/2023 Immunizations Immunization Administration Dates Next Due DT 10/13/2002 H1N1 All Forms 10/26/2009 Influenza, Quadrivalent, Hig h Dose, Preservative Free, Intrr 10/16/2020 Influenza, Quadrivalent, Spl it, Intramuscular 09/12/2019 Influenza, Trivalent, High D ose, Split, Preservative Free, Intramuscular 08/22/2017,10/28/2014 Influenza, Trivalent, IM (MDV) 08/13/2012 Influenza, Unspecified 10/16/2020,2017,08/03/2017,08/02,10/04/2010,11/13/2006 Pfizer SARS-CoV-2 Monovalent Vaccination (12+ Yrs) PURPLE 12/28/2020,12/06/2020 Pneumococcal Conjugate PCV 13 02/10/2015 Pneumococcal Polysaccharide PPV23 07/29/2019,09/2014 Tdap 04/23/2021,04/29/2014 ZOSTER LIVE 11/23/2017 ZOSTER Recombinant 10/29/2019,07/29/2019 Social History Tobacco Use Types Packs/Day Years [...] on file Legal Sex Male 7:17 AM VEHICLE CONTROLS ENGINEER Gender Identity Not on file Sexual Orientation Not on file Last Filed Vital Signs Vital Sign Reading Time Taken Comments Blood Pressure 112/70 12/11/2024 12:18 PM VEHICLE CONTROLS ENGINEER Pulse 89 12/11/2024 12:18 PM VEHICLE CONTROLS ENGINEER Temperature 36.3 C (97.4 F) 12/11/2024 12:18 PM VEHICLE CONTROLS ENGINEER Respiratory Rate 16 01/11/2019 11:45 AM VEHICLE CONTROLS ENGINEER Oxygen Saturation 98% 01/04/2024 9:02 AM VEHICLE CONTROLS ENGINEER Inhaled Oxygen Concentration - - Weight 122.5 kg (270 lb) 12/11/2024 12:18 PM VEHICLE CONTROLS ENGINEER Height 200.7 cm (6' 7 ) 12/11/2024 12:18 PM VEHICLE CONTROLS ENGINEER Body Mass Index 30.42 12/11/2024 12:18 PM VEHICLE CONTROLS ENGINEER Plan of Treatment Not on file Medical Devices Implanted Type Area Lead Recoverer Device Identifier Shelf Expiration Date Model / Serial / Lot Bilateral Total Knee Arthroplasty Bilateral : Knee Procedures Procedure Name Priority Date/Time Associated Diagnosis Comments CT SOFT TISSUE NECK W CONTRAST Schedule Routine, Read Routine (OP Routine) 12/11/2024 3:56 PM VEHICLE CONTROLS ENGINEER Pituitary adenoma (HCC) MRI BRAIN W WO CONTRAST (PITUITARY) Schedule Routine, Read Routine (OP Routine) 12/11/2024 7:46 AM VEHICLE CONTROLS ENGINEER Pituitary adenoma (HCC) COLONOSCOPY 01/11/2019 7:11 AM VEHICLE CONTROLS ENGINEER from Last 3 Months or Most Recently Relevant to Health Maintenance Results * CT Neck Soft Tissue W Contrast (12/11/2024 3:56 PM VEHICLE CONTROLS ENGINEER) Anatomical Region Laterality Modality Head and Neck N/A Computed Tomogra phy 12/11/2024 5:00 PM VEHICLE CONTROLS ENGINEER Impressions 12/11/2024 5:43 PM VEHICLE CONTROLS ENGINEER Homogeneously enhancing lesion splaying the left external and internal carotid arteries is 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 Other less favored differential considerations include nerve sheathe tumor or metastatic lymph node. Consider CTA of the neck to exclude pseudoaneurysm although there is no definite communication with adjacent vessels. Dictated by: Darrion Lemus M.D. The radiology attending physician has personally reviewed this study, and had reviewed and/or edited this written report and agrees with it. Electronically signed by: Sergio Piedra M.D. Narrative 12/11/2024 5:43 PM VEHICLE CONTROLS ENGINEER EXAMINATION: CT of the neck with contrast HISTORY: 79 years-old Male with pituitary macroadenoma with enhancing lesion seen in the left carotid space on MRI brain. TECHNIQUE: CT of the neck was performed according to the standard protocol with intravenous contrast. Contrast information: 67 mL Optiray-350 COMPARISON: MRI pituitary and brain 12/11/2024 FINDINGS: In the left carotid space there is a homogeneously enhancing rounded lesion measuring approximately 1.2 x 1.1 x 1.8 cm AP by TV by CC, which splays the left internal and external carotid artery origins. The lesion abuts but does not encase either vessel, nor does it appear to arise from the vessels themselves. There are no pathologically enlarged or architectural normal lymph nodes in the neck. The muscles of the neck are normal. Atherosclerotic calcifications present in the bilateral carotid bulbs without significant stenosis. Neck vasculature is otherwise normal. Fascial planes are preserved and the deep spaces of the neck are normal. The visualized airway is widely patent. Subcentimeter nodule in the left thyroid lobe. The parotid and submandibular glands are normal. Enhancing pituitary mass present, described in greater detail on concurrent brain MRI. There is mild mucosal thickening of the paranasal sinuses. The mastoid air cells are normally aerated. Mild degenerative changes present in both temporal mandibular joints. There are multiple missing teeth with scattered dental implants. The orbits are normal. There is multilevel intervertebral disc height loss and degenerative endplate spurring and sclerosis, most prominently at C5-C6 and C6-C7. There is mild to moderate spinal canal stenosis at C5-C6. Uncovertebral spurring and facet arthropathy result in severe right and moderate left neuroforaminal stenosis at C4-C5 and C5-C6. Minimal dependent atelectasis present in the lung apices. Procedure Note Sergio Piedra MD - 12/11/2024 EXAMINATION: CT of the neck with contrast HISTORY: 79 years-old Male with pituitary macroadenoma with enhancing lesion seen in the left carotid space on MRI brain. TECHNIQUE: CT of the neck was performed according to the standard protocol with intravenous contrast. Contrast information: 67 mL Optiray-350 COMPARISON: MRI pituitary and brain 12/11/2024 FINDINGS: In the left carotid space there is a homogeneously enhancing rounded lesion measuring approximately 1.2 x 1.1 x 1.8 cm AP by TV by CC, which splays the left internal and external carotid artery origins. The lesion abuts but does not encase either vessel, nor does it appear to arise from the vessels themselves. There are no pathologically enlarged or architectural normal lymph nodes in the neck. The muscles of the neck are normal. Atherosclerotic calcifications present in the bilateral carotid bulbs without significant stenosis. Neck vasculature is otherwise normal. Fascial planes are preserved and the deep spaces of the neck are normal. The visualized airway is widely patent. Subcentimeter nodule in the left thyroid lobe. The parotid and submandibular glands are normal. Enhancing pituitary mass present, described in greater detail on concurrent brain MRI. There is mild mucosal thickening of the paranasal sinuses. The mastoid air cells are normally aerated. Mild degenerative changes present in both temporal mandibular joints. There are multiple missing teeth with scattered dental implants. The orbits are normal. There is multilevel intervertebral disc height loss and degenerative endplate spurring and sclerosis, most prominently at C5-C6 and C6-C7. There is mild to moderate spinal canal stenosis at C5-C6. Uncovertebral spurring and facet arthropathy result in severe right and moderate left neuroforaminal stenosis at C4-C5 and C5-C6. Minimal dependent atelectasis present in the lung apices. 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 Other less favored differential considerations include nerve sheathe tumor or metastatic lymph node. Consider CTA of the neck to exclude pseudoaneurysm although there is no definite communication with adjacent vessels. Dictated by: Darrion Lemus M.D. The radiology attending physician has personally reviewed this study, and had reviewed and/or edited this written report and agrees with it. Electronically signed by: Sergio Piedra M.D. us Herbert Sneed MD IMG CT PROCEDURES Final R esult * MRI Brain W WO Contrast (Pituitary) (12/11/2024 7:46 AM VEHICLE CONTROLS ENGINEER) Anatomical Region Laterality Modality Head and Neck N/A Magnetic Resonan ce 12/11/2024 12:5 4 PM VEHICLE CONTROLS ENGINEER Impressions 12/11/2024 12:54 PM VEHICLE CONTROLS ENGINEER 1. 1.7 cm pituitary macroadenoma with mild extension into the right cavernous sinus, appears unchanged since 08/09/2022. 2. Unchanged 9 mm cystic lesion in the left aspect of the sella which may represent a cystic component of the pituitary adenoma or a Rathke cleft cyst. 3. Incidental partially-visualized and incompletely-evaluated 1cm enhancing lesion within the left carotid space of the neck. Recommend further evaluation with neck CT with contrast. Gwyn Brice (medical student) participated in the interpretation of this imaging study. Electronically signed by: Gladys Gutierrez M.D. Narrative 12/11/2024 12:54 PM VEHICLE CONTROLS ENGINEER EXAMINATION: Magnetic resonance imaging (MRI) of the brain and brainstem without and with contrast. HISTORY: 79-year-old man with intermediate risk prostate cancer status post radiotherapy and pituitary macroadenoma incidentally discovered in 2021, follow-up for stability. TECHNIQUE: Multiplanar multi-weighted MRI of the brain and brainstem was performed without without and with intravenous contrast using the pituitary protocol. This included acquisitions showing dynamic contrast enhancement of the sella turcica in the coronal plane and a post-contrast T1-Stealth sequence. Contrast information: 20 mL Gadoterate Meglumine COMPARISON: Brain MRI 11/21/2023, brain MRI 08/09/2022 FINDINGS: Redemonstrated is an enhancing right sellar suprasellar mass measuring approximately 1.7 x 1 cm which has not significantly changed in size since the 08/09/2022 comparison study and is consistent with the patient's known pituitary macroadenoma. This mass is displacing the pituitary stalk to the left and normal pituary tissue to the left and anterior portion of the sella. There is unchanged mild extension into the right cavernous sinus with extension over the right internal carotid artery without narrowing. In addition there is unchanged superior extension to the suprasellar cistern with abutment but no mass effect on the optic chiasm and left optic tract. Also redemonstrated is an approximately 7 x 9 mm cystic lesion in the left posterior aspect of the sella which may represent a cystic component of the adenoma or a Rathke cleft cyst (series 21, image 9). The cystic lesion has not significantly changed in size since the comparison study dated 08/09/2022. The orbits are normal. The scalp and calvarium are normal. The corpus callosum is normal in shape and signal intensity. The posterior fossa is unremarkable. The brainstem and craniocervical junction are unremarkable. There is mild global cerebral volume loss with ex vacuo dilatation of the ventricles with asymmetry of the lateral ventricles (left greater than right). There is a cavum septum interpositum. The paranasal sinuses are normal. The visualized portions of the mastoids are unremarkable. The orbits appear normal. There is a partially-visualized 1cm lesion within the left carotid space of the neck (Series 22, Image 8) which seems to correspond to the FDG-uptake lesion on the outside reference PET/CT done on 07/12/2023. Procedure Note Vo, Gladys Bell MD - 12/11/2024 EXAMINATION: Magnetic resonance imaging (MRI) of the brain and brainstem without and with contrast. HISTORY: 79-year-old man with intermediate risk prostate cancer status post radiotherapy and pituitary macroadenoma incidentally discovered in 2021, follow-up for stability. TECHNIQUE: Multiplanar multi-weighted MRI of the brain and brainstem was performed without without and with intravenous contrast using the pituitary protocol. This included acquisitions showing dynamic contrast enhancement of the sella turcica in the coronal plane and a post-contrast T1-Stealth sequence. Contrast information: 20 mL Gadoterate Meglumine COMPARISON: Brain MRI 11/21/2023, brain MRI 08/09/2022 FINDINGS: Redemonstrated is an enhancing right sellar suprasellar mass measuring approximately 1.7 x 1 cm which has not significantly changed in size since the 08/09/2022 comparison study and is consistent with the patient's known pituitary macroadenoma. This mass is displacing the pituitary stalk to the left and normal pituary tissue to the left and anterior portion of the sella. There is unchanged mild extension into the right cavernous sinus with extension over the right internal carotid artery without narrowing. In addition there is unchanged superior extension to the suprasellar cistern with abutment but no mass effect on the optic chiasm and left optic tract. Also redemonstrated is an approximately 7 x 9 mm cystic lesion in the left posterior aspect of the sella which may represent a cystic component of the adenoma or a Rathke cleft cyst (series 21, image 9). The cystic lesion has not significantly changed in size since the comparison study dated 08/09/2022. The orbits are normal. The scalp and calvarium are normal. The corpus callosum is normal in shape and signal intensity. The posterior fossa is unremarkable. The brainstem and craniocervical junction are unremarkable. There is mild global cerebral volume loss with ex vacuo dilatation of the ventricles with asymmetry of the lateral ventricles (left greater than right). There is a cavum septum interpositum. The paranasal sinuses are normal. The visualized portions of the mastoids are unremarkable. The orbits appear normal. There is a partially-visualized 1cm lesion within the left carotid space of the neck (Series 22, Image 8) which seems to correspond to the FDG-uptake lesion on the outside reference PET/CT done on 07/12/2023. IMPRESSION: 1. 1.7 cm pituitary macroadenoma with mild extension into the right cavernous sinus, appears unchanged since 08/09/2022. 2. Unchanged 9 mm cystic lesion in the left aspect of the sella which may represent a cystic component of the pituitary adenoma or a Rathke cleft cyst. 3. Incidental partially-visualized and incompletely-evaluated 1cm enhancing lesion within the left carotid space of the neck. Recommend further evaluation with neck CT with contrast. Gwyn Brice (medical student) participated in the interpretation of this imaging study. Electronically signed by: Gladys Gutierrez M.D. us Herbert Sneed MD IMG MRI PROCEDURES Final Result * COLONOSCOPY (01/11/2019 7:11 AM VEHICLE CONTROLS ENGINEER) Anatomical Region Laterality Modality Other Narrative Procedure Note Cedric Frausto MD PhD - 01/11/2019 7:11 AM CST [facility] Patient Name: Duane Torres Procedure Date: 01/11/2019 7:11 AM Date of : 1945 Admit Type: Outpatient Age: 73 Gender: Male Attending MD: Cedric Frausto MD, PHD Room: [facility] 02 Note Status: Finalized Procedure: Colonoscopy Indications: Abdominal pain in the right lower quadrant, Chronic diarrhea Referring MD: Juan Ha MD Providers: Cedric Frausto MD, PHD Medicines: Monitored Anesthesia Care Complications: No immediate complications. Estimated Blood Loss: Estimated blood loss: none. Procedure: Pre-Anesthesia Assessment: - Prior to the procedure, a History and Physical was performed, and patient medications and allergieswere reviewed. The patient is competent. The risks and benefits of the procedure and the sedation optionsand risks were discussed with the patient. All questions were answered and informed consent was obtained. Patient identification and proposed procedure were verified by the physician in the pre-procedure area. Mental Status Examination: alert and oriented.Airway Examination: normal oropharyngeal airway and neck mobility. Respiratory Examination: clear to auscultation. CV Examination: normal. ASA Grade Assessment: II - A patient with mild systemicdisease. After reviewing the risks and benefits, the patientwas deemed in satisfactory condition to undergo the procedure. The anesthesia plan was to use monitored anesthesia care (MAC). Immediately prior to administration of medications, the patient was re-assessed for adequacy to receive sedatives. The heart rate, respiratory rate, oxygen saturations,blood pressure, adequacy of pulmonary ventilation, and response to care were monitored throughout the procedure. The physical status of the patient was re-assessed after the procedure. - Immediately prior to administration ofmedications, the patient was re-assessed for adequacy to receive sedatives. The benefits, risks and alternatives of theprocedure and sedation were discussed and informed consent was obtained. All questions were answered. Please referto the signed informed consent document in the medical record. The scope was passed under direct vision.The [id number] Endoscope was introduced throughthe anus and advanced to the the terminal ileum. The colonoscopy was performed without difficulty. Thebowel preparation used was CoLyte. Findings: The perianal and digital rectal examinations were normal. The terminal ileum appeared normal. Biopsies were taken with a cold forceps for histology. The recto-sigmoid colon, transverse colon, ascending colon and cecum appeared normal. Biopsies were taken with a cold forceps forhistology. Impression: - The examined portion of the ileum was normal. Biopsied. - The recto-sigmoid colon, transverse colon,ascending colon and cecum are normal. Biopsied. Recommendation: - Await pathology results. Electronically signed by Cedric Frausto MD PHD Cedric Frausto MD, PHD 01/11/2019 11:50:25 AM . Number of Addenda: 0 Note Initiated On: 01/11/2019 7:11 AM Recognized by the [employer] for promoting quality in endoscopy Cedric Frausto MD PhD ENDOSCOPY PROCEDURES Final Result from Last 3 Months or Most Recently Relevant to Health Maintenance Insurance MEDICARE [employer] [facility] [employer] [facility] MEDICARE [facility] MEDICARE [facility] Care Teams Reception Centre Manager Relationship Specialty Start Date End Date No, Physician PCP - General 07/26/23 Demetrius Espitia MD Radiation Oncologist Radiation Oncology 07/26/23 Henry Barton MD [address] [place] [address] Consulting Physician Urology 07/26/23
--- OUTSIDE RECORDS SUMMARY | 2025-01-27 14:24 | XMS_ITS | Patient Health Summary ---
Author Organization [facility] Address [address] [place] [address] Care Team Providers Care Donor Services Technician Name Role Phone Juan Ha MD Primary Care Provider [phone] Michelle Barbosa RN Unavailable Unavailable Juan Joshi I OD Unavailable [phone] [facility] Unavailab le Note from [facility],non-owned Affiliates and Associated Physician Practices is amultiple site organization consisting of ambulatory clinics and hospital sitesin [place], [place], [place] and [place]. This disclosure is being madepursuant to the Care Everywhere program and may not contain all information available regarding this patient. Last updated 18.[facility] Allergies * Atorvastatin(Other) * Rosuvastatin(Other) * Simvastatin(Other) -Medium Criticality Medications * Be aware that medications may not be up to date on this document. Alwaysverify current medications with the patient. * DULoxetine (CYMBALTA) 20 MG capsule(Started 01/18/2018) Take 60 mg by mouth DAILY * triamterene-hydroCHLOROthiazide (MAXZIDE-25) 37.5-25 MG tablet(Started 02/06/2018) Take 1 tablet by mouth DAILY. 3 refills left * metFORMIN (GLUCOPHAGE) 500 MG tablet(Started 05/31/2018) Take 2 tablets by mouth 2 times daily with morning and evening meal 3 refills remaining * tamsulosin (FLOMAX) 0.4 MG capsule(Started 12/03/2019) Take 1 capsule by mouth once daily At the same time every day after a meal. * atorvastatin (LIPITOR) 20 MG tablet(Started 07/14/2020) Take 10 mg by mouth once daily * polyethylene glycol 3350 (MIRALAX) 17 GM/SCOOP powder Take 17 g by mouth * methocarbamol (ROBAXIN) 500 MG tablet(Started 05/17/2021) TAKE 1 TABLET BY MOUTH EVERY 6 HOURS NEEDED FOR MUSCLE SPASM * HYDROcodone-acetaminophen (NORCO) 7.5-325 MG tablet Take 1 tablet by mouth every 6 hours as needed for Pain * alogliptin (NESINA) 25 MG tablet Take 25 mg by mouth once daily * gabapentin (NEURONTIN) 300 MG capsule(Started 12/08/2021) TAKE ONE CAPSULE BY MOUTH AT BEDTIME FOR 7 DAYS, THEN TAKE ONE CAPSULE TWICE A DAY FOR 7 DAYS, THENTAKE ONE CAPSULE THREE TIMES A DAY FOR PAIN * sildenafil (VIAGRA) 100 MG tablet(Started 10/27/2021) TAKE ONE TABLET BY MOUTH EVERY WEEK NEEDED FOR ERECTILE DYSFUNCTION (TAKE 60 MINUTES PRIOR TO SEXUAL ACTIVITY) - LIMIT 4 DOSES PER 30 DAYS * Cholecalciferol 50 MCG (2000 UT)(Started 04/23/2021) TAKE ONE TABLET BY MOUTH ONCE A DAY FOR VITAMIN D DEFICIENCY. * Cyanocobalamin 1000 MCG(Started 09/13/2021) TAKE ONE TABLET BY MOUTH ONCE A DAY FOR B12 SUPPLEMENTATION * diclofenac sodium (VOLTAREN) 1 % gel(Started 10/29/2021) APPLY 2 GM TO AFFECTED AREA(S) FOUR [...] 16 GRAMS DAILY TO ANY LOWER EXTREMITY JOINT.NOT MORE THAN 8 GRAMS DAILY TO ANY UPPER EXTREMITY JOINT. MAX 32GM/DAY OVER ALL JOINTS. (MEASURE DOSE WITH RULER ATTACHED INSIDE BOX) OVER HANDS AND SHOULDERS NEEDED FOR PAIN * testosterone (ANDROGEL) 20.25 MG/ACT (1.62%) gel(Started 10/27/2021) APPLY 3 PUMPS (60.75MG) TO AFFECTED AREA(S) ONCE A DAY (APPLY TO CLEAN DRY SKIN OF UPPER ARMS OR UPPER SHOULDER ONLY) FOR HORMONE SUPPLEMENTATION. * acetaminophen (TYLENOL) 325 MG tablet Take 325 mg by mouth every 4 hours as needed for Fever or Pain Maximum allowable Acetaminophen amount = 4 Grams (4000 mg) / 24 hours. * oxyCODONE, immediate release, (ROXICODONE) 5 MG tablet(Started 01/18/2022) Take 1 (one) tablet by mouth every 6 hours as needed for Pain * docusate sodium (COLACE) 100 MG capsule(Started 01/18/2022) Take 1 (one) capsule by mouth 2 times daily as needed for Constipation (relief of difficult bowel movements) * Nirmatrelvir&Ritonavir 300/100 20 x 150 MG & 10 x 100MG Oral Tablet Therapy Pack (Paxlovid)(Started 07/02/2022) Take two 150mg tablets (300mg) of nirmatrelvir and one tablet (100mg) of ritonavir together as a single dose by mouth twice daily for 5 days. Do not crush, chew, or cut in half. Active Problems Problem Noted Date Diagnosed Date Umbilical hernia without obstruction and without gangrene 12/14/2021 Elevated PSA 12/14/2021 Testosterone deficiency in male 01/12/2021 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 Type 2 diabetes mellitus without complications 1 11/18/2016 Slow transit constipation 09/18/2017 Pure hypercholesterolemia 09/18/2017 Other chronic pain 09/18/2017 Primary osteoarthritis of left knee 09/18/2017 Idiopathic peripheral neuropathy 09/18/2017 Meniere's disease 01/20/2016 Venous insufficiency (chronic) (peripheral) 07/2016 Obstructive sleep apnea 07/23/2013 Fatty (change of) liver, not elsewhere classifie d 07/23/2013 Actinic keratosis 03/08/2012 Nevus, non-neoplastic 03/08/2012 Other seborrheic keratosis 03/08/2012 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 (AFLURIA, FLUZONE TRIVALENT; 6MO+) (IIV3)(Given 08/13/2012) * Covid [employer] primary monovalent 12+ yr 0.3mL Purple cap(Given 12/28/2020, 12/06/2020) * DT (AGE 0-7)(Given 10/13/2002) * FLU VACCINE QUAD IIV4 SPLIT 0.25 ML IM(Given 09/12/2019) * INFLUENZA A D7L5-93 VACCINE(Given 10/26/2009) * INFLUENZA VACCINE(Given 10/16/2020, 09/13/2018, 08/03/2017, 08/02/2011, 10/04/2010, 11/13/2006) * INFLUENZA VACCINE, HIGH-DOSE, QUADR. (FLUZONE HIGH-DOSE QUADRIVALENT; 65Y+), 0.7 ML (HD-IIV4)(Given 08/22/2017, 11/22/2016, 08/24/2015, 10/28/2014) * INFLUENZA VACCINE, QUADR. (FLUZONE; FLULAVAL; FLUARIX; AFLURIA QUADRIVALENT; 6MO+), 0.5 ML (IIV4)(Given 09/12/2019) * PNEUMOCOCCAL PPSV23(Given 07/29/2019, 01/21/2014) * Pneumococcal Pcv13 Conj(Given 02/10/2015) * TDAP (7yrs+)(Given 04/23/2021, 04/29/2014) * ZOSTER VACCINE, LIVE(Given 11/23/2017) * Zoster Hzv Vacc Recombinant Inj Im(Given 10/29/2019, 07/29/2019) Social History Tobacco Use Types Packs/Day Years [...] Comments Blood Pressure 148/78 01/18/2022 1:00 PM CRYSTALIZER OPERATOR Pulse 75 01/18/2022 1:00 PM CRYSTALIZER OPERATOR Temperature 36.8 C (98.3 F) 01/18/2022 11:25 AM CRYSTALIZER OPERATOR Respiratory Rate 6 01/18/2022 1:00 PM CRYSTALIZER OPERATOR Oxygen Saturation 97% 01/18/2022 1:00 PM CRYSTALIZER OPERATOR Inhaled Oxygen Concentration - - Weight 129.7 kg (286 lb) 01/18/2022 8:05 AM CRYSTALIZER OPERATOR Height 200.7 cm (6' 7 ) 01/18/2022 8:05 AM CRYSTALIZER OPERATOR Body Mass Index 32.22 01/18/2022 8:05 AM CRYSTALIZER OPERATOR Medical Devices Implanted Type Area Head Stock Transfer Clerk Device Identifier Shelf Expiration Date Model / Serial / Lot Mesh Srg Ventralight St Sepra 6x4in Implanted:Qty: 1 on 01/18/2022 by Demetrius Sanii MD at [facility] N/A: [employer] 08/10/2023 [id number] / / [id number] Sys Fx 37cm Cpsr Str Ss Peek Perm Hndl Implanted:Qty: 1 on 01/18/2022 by Demetrius Saini MD at [facility] N/A: [employer] 09/09/2023 [id number] / / [id number] Procedures * GLUCOSE - POINT OF CARE(Performed 01/18/2022) * PATHOLOGY TISSUE(Performed 01/18/2022) Performed for Umbilical hernia without obstruction and without gangrene * LAPAROSCOPIC REPAIR UMBILICAL HERNIA(Performed 01/18/2022) Performed for Umbilical hernia without obstruction and without gangrene * ENDOTRACHEAL TUBE NOTE(Performed 01/18/2022) * CBC W/O DIFFERENTIAL(Performed 01/18/2022) Performed for Umbilical hernia without obstruction and without gangrene * GLUCOSE - POINT OF CARE(Performed 01/18/2022) * URINALYSIS MICROSCOPIC ONLY REFLEXED(Performed 12/30/2021) Performed for Pure hypercholesterolemia * PROSTATE SPECIFIC ANTIGEN SCREEN(Performed 12/30/2021) Performed for Elevated PSA, Screening for prostate cancer * URINALYSIS W/MICROSCOPIC NO CULTURE(Performed 12/30/2021) Performed for Pure hypercholesterolemia * LIPID PROFILE(Performed 12/30/2021) Performed for Pure hypercholesterolemia * CBC W/O DIFFERENTIAL(Performed 12/30/2021) Performed for Immune thrombocytopenic purpura (HCC) * COMPREHENSIVE METABOLIC PANEL(Performed 12/30/2021) Performed for Pure hypercholesterolemia * CULTURE AEROBIC(Performed 05/20/2021) Performed for Cellulitis of toe of right foot * URINALYSIS MICROSCOPIC ONLY REFLEXED(Performed 01/07/2021) Performed for Type 2 diabetes mellitus without complication, without long-term current use of insulin (HCC) * MICROALB/CREAT RATIO URINE RANDOM PANEL(Performed 01/07/2021) Performed for Type 2 diabetes mellitus without complication, without long-term current use of insulin ([facility]) * URINALYSIS W/MICROSCOPIC NO CULTURE(Performed 01/07/2021) Performed for Type 2 diabetes mellitus without complication, without long-term current use of insulin ([facility]) * CBC W/O DIFFERENTIAL(Performed 01/07/2021) Performed for Immune thrombocytopenic purpura ([facility]) * HEMOGLOBIN A1C(Performed 01/07/2021) Performed for Type 2 diabetes mellitus without complication, without long-term current use of insulin ([facility]) * LIPID PROFILE(Performed 01/07/2021) Performed for Pure hypercholesterolemia, Type 2 diabetes mellitus without complication, without long-term current use of insulin ([facility]) * COMPREHENSIVE METABOLIC PANEL(Performed 01/07/2021) Performed for Primary osteoarthritis of left knee, Pure hypercholesterolemia, Type 2 diabetes mellitus without complication, without long-term current use of insulin ([facility]) * PROSTATE SPECIFIC ANTIGEN SCREEN(Performed 01/07/2021) Performed for Screening for prostate cancer * TESTOSTERONE TOTAL(Performed 01/07/2021) Performed for Well adult exam * HEMOGLOBIN A1C - POINT OF CARE (AMB) [facility](Performed 07/14/2020) Performed for Type 2 diabetes mellitus without complication, without long-term current use of insulin ([facility]) * HEMOGLOBIN A1C - POINT OF CARE (AMB) [facility](Performed 12/03/2019) Performed for Type 2 diabetes mellitus without complication, without long-term current use of insulin ([facility]) * COLONOSCOPY(Performed 03/14/2019) * PATHOLOGY/CYTOLOGY REPORT ORDER(Performed 01/14/2019) * COLONOSCOPY(Performed 01/14/2019) * MICROALB/CREAT RATIO URINE RANDOM PANEL(Performed 09/18/2018) * HEMOGLOBIN A1C(Performed 09/18/2018) * LIPID PROFILE(Performed 09/18/2018) * CBC W/O DIFFERENTIAL(Performed 09/18/2018) * URINALYSIS REFLEX TO MICROSCOPIC NO CULTURE(Performed 09/18/2018) * COMPREHENSIVE METABOLIC PANEL(Performed 09/18/2018) * HEMOGLOBIN A1C(Performed 05/15/2018) * MICROALB/CREAT RATIO URINE RANDOM PANEL(Performed 05/15/2018) * LIPID PROFILE(Performed 05/15/2018) * CBC W/O DIFFERENTIAL(Performed 05/15/2018) * COMPREHENSIVE METABOLIC PANEL(Performed 05/15/2018) * IGG BLOOD(Performed 03/05/2018) Performed for Immune thrombocytopenic purpura (HCC) * COMPREHENSIVE METABOLIC PANEL(Performed 03/05/2018) Performed for Immune thrombocytopenic purpura (HCC) * CBC W AUTO DIFFERENTIAL(Performed 03/05/2018) Performed for Immune thrombocytopenic purpura (HCC) * HEMOGLOBIN A1C(Performed 11/20/2017) * LIPID PROFILE(Performed 08/10/2017) * HEMOGLOBIN A1C(Performed 08/10/2017) * BASIC METABOLIC PANEL (CALCIUM TOTAL)(Performed 05/15/2017) * CBC W/O DIFFERENTIAL(Performed 05/15/2017) * HEMOGLOBIN A1C(Performed 05/15/2017) * CK BLOOD(Performed 05/15/2017) * HEMOGLOBIN A1C(Performed 02/09/2017) * URINALYSIS REFLEX TO MICROSCOPIC NO CULTURE(Performed 11/17/2016) * BASIC METABOLIC PANEL (CALCIUM TOTAL)(Performed 11/17/2016) * CBC W/O DIFFERENTIAL(Performed 11/17/2016) * MICROALB/CREAT RATIO URINE RANDOM PANEL(Performed 11/17/2016) * HEMOGLOBIN A1C(Performed 11/17/2016) * LIPID PROFILE(Performed 05/13/2016) * COMPREHENSIVE METABOLIC PANEL(Performed 05/13/2016) * HEMOGLOBIN A1C(Performed 05/13/2016) * CBC W/O DIFFERENTIAL(Performed 02/05/2016) * URINALYSIS REFLEX TO MICROSCOPIC NO CULTURE(Performed 02/05/2016) * MICROALB/CREAT RATIO URINE RANDOM PANEL(Performed 02/05/2016) * COMPREHENSIVE METABOLIC PANEL(Performed 02/05/2016) * HEMOGLOBIN A1C(Performed 02/05/2016) * LIPID PROFILE(Performed 02/05/2016) * HEMOGLOBIN A1C(Performed 11/30/2015) * COMPREHENSIVE METABOLIC PANEL(Performed 08/18/2015) * CBC W AUTO DIFFERENTIAL(Performed 08/18/2015) * HEMOGLOBIN A1C(Performed 08/18/2015) * URINALYSIS REFLEX TO MICROSCOPIC NO CULTURE(Performed 05/07/2015) * MICROALB/CREAT RATIO URINE RANDOM PANEL(Performed 05/07/2015) * LIPID PROFILE(Performed 05/07/2015) * HEMOGLOBIN A1C(Performed 05/07/2015) * COMPREHENSIVE METABOLIC PANEL(Performed 05/07/2015) * CBC W/O DIFFERENTIAL(Performed 05/07/2015) * HEMOGLOBIN A1C(Performed 01/27/2015) * MICROALB/CREAT RATIO URINE RANDOM PANEL(Performed 10/16/2014) * HEMOGLOBIN A1C(Performed 10/16/2014) * CBC W/O DIFFERENTIAL(Performed 10/16/2014) * COMPREHENSIVE METABOLIC PANEL(Performed 10/16/2014) * FOLATE(Performed 04/23/2014) * PROSTATE SPECIFIC ANTIGEN SCREEN(Performed 04/23/2014) * HEMOGLOBIN A1C(Performed 04/23/2014) * HEMOGLOBIN A1C(Performed 01/09/2014) * TSH(Performed 01/09/2014) * CBC W AUTO DIFFERENTIAL(Performed 01/09/2014) * COMPREHENSIVE METABOLIC PANEL(Performed 01/09/2014) * LIPID PROFILE(Performed 01/09/2014) * CBC W/O DIFFERENTIAL(Performed 03/15/2013) * PROSTATE SPECIFIC ANTIGEN SCREEN(Performed 03/15/2013) * CBC W AUTO DIFFERENTIAL(Performed 11/16/2012) * HEMOGLOBIN A1C(Performed 11/16/2012) * URINALYSIS MICROSCOPIC ONLY REFLEXED(Performed 06/26/2012) * URINALYSIS W/MICROSCOPIC NO CULTURE(Performed 06/26/2012) * CBC W AUTO DIFFERENTIAL(Performed 06/26/2012) * TSH(Performed 06/26/2012) * HEMOGLOBIN A1C(Performed 06/26/2012) * COMPREHENSIVE METABOLIC PANEL(Performed 06/26/2012) * LIPID PROFILE(Performed 06/26/2012) * DERMATOPATHOLOGY(Performed 03/08/2012) * CBC W AUTO DIFFERENTIAL(Performed 03/01/2012) * CBC W AUTO DIFFERENTIAL(Performed 02/07/2012) * CBC W AUTO DIFFERENTIAL(Performed 01/27/2012) * CBC W AUTO DIFFERENTIAL(Performed 01/06/2012) * CBC W AUTO DIFFERENTIAL(Performed 12/30/2011) * COMPREHENSIVE METABOLIC PANEL(Performed 12/30/2011) * COMPREHENSIVE METABOLIC PANEL(Performed 12/23/2011) * CBC W AUTO DIFFERENTIAL(Performed 12/23/2011) * CBC W AUTO DIFFERENTIAL(Performed 12/16/2011) * COMPREHENSIVE METABOLIC PANEL(Performed 12/16/2011) * CBC W AUTO DIFFERENTIAL(Performed 12/09/2011) * COMPREHENSIVE METABOLIC PANEL(Performed 12/09/2011) * CBC W AUTO DIFFERENTIAL(Performed 12/01/2011) * CBC W AUTO DIFFERENTIAL(Performed 11/24/2011) * CBC W AUTO DIFFERENTIAL(Performed 11/17/2011) * RIKKI W SINGLE RFLX IF POSITIVE(Performed 10/04/2011) * MICROSOMAL ANTIBODY LIVER/KIDNEY(Performed 10/04/2011) * DNA ANTIBODY DOUBLE STRANDED(Performed 10/04/2011) * MITOCHONDRIAL ANTIBODY SCREEN(Performed 10/04/2011) * PT-INR SLH(Performed 10/04/2011) * CBC W AUTO DIFFERENTIAL(Performed 10/04/2011) * RIKKI W SINGLE RFLX IF POSITIVE(Performed 10/04/2011) * DNA ANTIBODY DOUBLE STRANDED(Performed 10/04/2011) * PT-INR SLH(Performed 10/04/2011) * CBC W AUTO DIFFERENTIAL(Performed 10/04/2011) * PATHOLOGY PERIPHERAL SMEAR REVIEW(Performed 09/26/2011) * HEPATITIS C RIBA CONFIRMATION(Performed 09/26/2011) * HEPATITIS C RIBA CONFIRMATION(Performed 09/26/2011) * FACTOR VII ASSAY(Performed 09/26/2011) * HELICOBACTER PYLORI ANTIBODY IGG(Performed 09/26/2011) * FACTOR V ASSAY(Performed 09/26/2011) * RETIC COUNT(Performed 09/26/2011) * LDH BLOOD(Performed 09/26/2011) * RIKKI BLOOD SCREEN(Performed 09/26/2011) * HELICOBACTER PYLORI ANTIBODY IGM(Performed 09/26/2011) * HIV-1 HIV-2 ANTIBODY W REFLX HIV1 WB(Performed 09/26/2011) * PLATELET ASSOCIATED ANTIBODY DIRECT PANEL(Performed 09/26/2011) * COMPREHENSIVE METABOLIC PANEL(Performed 09/26/2011) * CBC W AUTO DIFFERENTIAL(Performed 09/26/2011) * HELICOBACTER PYLORI ANTIBODY IGG(Performed 09/26/2011) * RIKKI BLOOD SCREEN(Performed 09/26/2011) * HELICOBACTER PYLORI ANTIBODY IGM(Performed 09/26/2011) * PLATELET ASSOCIATED ANTIBODY DIRECT PANEL(Performed 09/26/2011) * RETIC COUNT(Performed 09/26/2011) * CBC W AUTO DIFFERENTIAL(Performed 09/26/2011) * LDH BLOOD(Performed 09/26/2011) * HIV-1 HIV-2 ANTIBODY W REFLX HIV1 WB(Performed 09/26/2011) * COMPREHENSIVE METABOLIC PANEL(Performed 09/26/2011) * VITAMIN B12(Performed 09/26/2011) * LAB HISTORICAL RESULTS-ONBASE(Performed 08/09/2011) * METHYLMALONIC ACID BLOOD(Performed 08/05/2011) * TSH(Performed 08/05/2011) * HEMOGLOBIN A1C(Performed 08/05/2011) * COMPREHENSIVE METABOLIC PANEL(Performed 08/05/2011) * TSH(Performed 08/05/2011) * HEMOGLOBIN A1C(Performed 08/05/2011) * COMPREHENSIVE METABOLIC PANEL(Performed 08/05/2011) * URINALYSIS MICROSCOPIC ONLY REFLEXED(Performed 02/16/2011) * URINALYSIS W/MICROSCOPIC NO CULTURE(Performed 02/16/2011) * PROSTATE SPECIFIC ANTIGEN SCREEN(Performed 02/16/2011) * CBC W AUTO DIFFERENTIAL(Performed 02/16/2011) * COMPREHENSIVE METABOLIC PANEL(Performed 02/16/2011) * LIPID PROFILE(Performed 02/16/2011) * LAB HISTORICAL RESULTS-ONBASE(Performed 08/15/2008) * LAB HISTORICAL RESULTS-ONBASE(Performed 08/15/2008) * LAB HISTORICAL RESULTS-ONBASE(Performed 10/18/2004) Results * (ABNORMAL) GLUCOSE - POINT OF CARE (01/18/2022 11:27 AM CRYSTALIZER OPERATOR) Only the most recent of2 resultswithin the time period is included. Glucose WB/POC 176(H) 70 - 115 mg/dL 01/18/2022 11:31 AM CRYSTALIZER OPERATOR [facility] Specimen Type Cap Fingerstick 2021 11:31 AM CRYSTALIZER OPERATOR [facility] Blood BLOOD SPECIMEN / Unknown 01/18/2022 11:27 AM CRYSTALIZER OPERATOR 01/18/2022 11:31 AM CRYSTALIZER OPERATOR Demetrius Saini MD LAB - POINT OF CARE ORDERABLES [facility] [address] [place] [id number], [facility] [phone] * PATHOLOGY TISSUE (01/18/2022 10:50 AM CRYSTALIZER OPERATOR) Case Report Surgical Pathology Report Case: [id number] Authorizing Provider: Demetrius Saini MD Collected: 01/18/2022 10:50 AM Ordering Location: [facility] OP Received: 01/18/2022 01:35 PM Pathologist: Nga Rai MD Specimen: Peritoneum, Pre Peritoneal Fat 01/19/2022 3:17 PM CRYSTALIZER OPERATOR [facility] Final Diagnosis Soft tissue, pre-peritoneal fat, excision (A): - Benign mesothelial lined adipose tissue consistent with hernia sac 01/19/2022 3:[address] [facility] Microscopic Description and Comment Microscopic examination substantiates the final diagnosis. 01/19/2022 3:[address] [facility] Clinical History The patient is a 76-year-old man with a symptomatic umbilical hernia. Operative procedure: laparoscopic umbilical hernia repair with mesh. 01/19/2022 3:[address] [facility] Gross Description The requisition and specimen(s) are identified with the patient's name, Duane Torres. Received in formalin, specimen A , is a 6.5 x 3.5 x 1.5 cm fragment of fibroadipose tissue. Sectioning shows yellow-collazo cut surfaces. No masses or lesions are seen. Liquid Floor And Wall Applier sections are submitted in cassette A1. MP 01/19/2022 3:[address] [facility] Disclaimer The performance characteristics of all immunohistochemical and indirect immunofluorescence stains (if any) cited in this report were determined by the Histopathology Laboratory of [facility]. Some of these tests were developed by our own laboratory and have not been cleared or approved by the US Food and Drug Administration. The FDA does not require this test to go through premarket FDA review. These tests are used for clinical purposes. They should not be regarded as investigational or for research. This laboratory is certified under the Clinical Laboratory Improvement Amendments (CLIA) as qualified to perform high complexity clinical laboratory testing. This case has been personally reviewed and interpreted by the attending (teaching) pathologist. 01/19/2022 3:[address] [facility] Embedded Images 01/19/2022 3:[address] [facility] Biopsy, Excision SPECIMEN FROM PERITONEUM / Unknown 01/18/2022 10:50 AM CRYSTALIZER OPERATOR 01/18/2022 1:35 PM CRYSTALIZER OPERATOR Comment:Pre-op diagnosis: Umbilical hernia without obstruction and without gangrene Demetrius Saini MD LAB - PATHOLOGY/CYTO LOGY ORDERABLES [facility] [address] [place], [place] [id number] [place] [address] * ETT LINE PERFORMABLE (01/18/2022 10:10 AM [facility]) Narrative Karie Forte APRN-CRNA - 01/18/2022 10:10 AM CRYSTALIZER OPERATOR Karie Forte APRN-CRNA 01/18/2022 10:11 AM Endotracheal Tube Placement: Patient Location: OR. Intubation Event Date/Time: 01/18/2022 10:06 AM Procedure: intubation (54738). Procedure Section: Sedation: under general anesthesia. Indications for Airway Management: anesthesia Procedure pretreatments used? No Induction: standard IV Patient Position: sniffing Mask Ventilation: easy. Blade Type: Dejesus Blade Size: 3 Laryngoscopy View: grade 1 (full cords) Intubation Adjuncts: cricoid pressure and stylet Tube: endotracheal tube Placement: oral Tube type: cuff - inflated Tube Size (MM): 8 Depth of Insertion (CM): 24 Measured From: lips Cuff volume (mL): 9 Cuff Inflated With: air Number of Attempts: 1. Placement Verified By: direct visualization, bilateral breath sounds, chest auscultation and CO2 monitor CXR Findings: ETT in proper place. Tube secured with: adhesive tape. Dentition unchanged? Yes Difficult Airway? No. Procedure Start Time: 01/18/2022 10:06 AM. Staff Section Anesthesia Provider: Karie Forte APRN-CRNA, Performed the procedure Provider #1: Yue Hoffman MD. Yue Hoffman MD GENERAL ANESTHESIA ORDERABLES * (ABNORMAL) CBC W/O DIFFERENTIAL (01/18/2022 9:39 AM [facility]) Only the most recent of11 resultswithin the time period is included. WBC 8.2 3.5 - 10.5 10 3/uL 01/18/2022 10:02 AM [facility] Comment:All CBC parameters h ave been checked. RBC 4.62 4.30 - 5.70 10 6/uL 01/18/2022 10:02 AM [facility] Hemoglobin 13.6 12.0 - 17.6 g/dL 01/18/2022 10:02 AM [facility] Hematocrit 40.6 35.2 - 51.7 % 01/18/2022 10:02 AM [facility] MCV 87.9 80.7 - 98.3 fL 01/18/2022 10:02 AM [facility] MCH 29.4 26.7 - 34.0 pg 01/18/2022 10:02 AM [facility] MCHC 33.5 30.8 - 35.9 g/dL 01/18/2022 10:02 AM [facility] Platelet Count 58(L) 150 - 400 10 3/uL 01/18/2022 10:02 AM [facility] Comment:Checked with the pre vious result. RDW-SD 44.9 36.0 - 50.0 fL 01/18/2022 10:02 AM [facility] RDW-CV 13.9 11.2 - 14.8 % 01/18/2022 10:02 AM [facility] MPV 12.4 9.4 - 12.9 fL 01/18/2022 10:02 AM [facility] nRBC Absolute 0.00 0 10 3/uL 01/18/2022 10:02 AM [facility] nRBC Auto 0.0 0 /100 WBC 01/18/2022 10:02 AM [facility] Blood BLOOD SPECIMEN / Unknown Venipuncture / Unknown 01/18/2022 9:39 AM CRYSTALIZER OPERATOR 01/18/2022 9:49 AM [facility] Yue Hoffman MD LAB - HEMATOLOGY OR DERABLES [facility] [address] [place] [id number], [facility] [phone] * URINALYSIS MICROSCOPIC ONLY REFLEXED (12/30/2021 9:33 AM CRYSTALIZER OPERATOR) Only the most recent of4 resultswithin the time period is included. WBC UA None seen 0 - 5 /hpf [facility] INSURANCE BILL RBC UA None seen 0 - 2 /hpf [facility] INSURANCE BILL Epithelial Cells (non renal) None seen 0 - 10 /hpf [facility] INSURANCE BILL Epithelial Cells (renal) NOT NEEDED [facility] INSURANCE BILL Comment:Ancillary determined the test is not needed. Casts ua None seen None seen /lpf [facility] INSURANCE BILL Casts UA NOT NEEDED [facility] INSURANCE BILL Comment:Ancillary determined the test is not needed. Crystals UA NOT NEEDED [facility] INSURANCE BILL Comment:Ancillary determined the test is not needed. Crystals UA NOT NEEDED [facility] INSURANCE BILL Comment:Ancillary determined the test is not needed. Mucus UA NOT NEEDED [facility] INSURANCE BILL Comment:Ancillary determined the test is not needed. Bacteria UA None seen None seen/Few [facility] INSURANCE BILL Yeast UA NOT NEEDED [facility] INSURANCE BILL Comment:Ancillary determined the test is not needed. Trichomonas UA NOT NEEDED [facility] INSURANCE BILL Comment:Ancillary determined the test is not needed. Comment Urine NOT NEEDED [facility] INSURANCE BILL Comment: FASTING Ancillary determined the test is not needed. 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 Specific Nettie UA 1.027 1.005 - 1.030 [facility] INSURANCE BILL pH UA 5.5 5.0 - 7.5 [facility] INSURANCE BILL Color UA Yellow Yellow [facility] INSURANCE BILL Appearance Clear Clear [facility] INSURANCE BILL Leukocyte UA Negative Negative [facility] INSURANCE BILL Protein UA Negative Negative/Tra ce [facility] INSURANCE BILL Glucose UA 3+(A) Negative [facility] INSURANCE BILL Ketone UA Negative Negative [facility] INSURANCE BILL Occult Blood Urine Negative Negative [facility] INSURANCE BILL Bilirubin UA Negative Negative [facility] INSURANCE BILL Urobilinogen 0.2 0.2 - 1.0 mg/dL [facility] INSURANCE BILL Nitrite UA Negative Negative [facility] INSURANCE BILL Microscopic Examination Urine [facility] INSURANCE BILL Comment:Microscopic follows if indicated. Microscopic Examination Urine See below: [facility] INSURANCE BILL Comment: Microscopic was indicated and was performed. FASTING Urine URINE SPECIMEN OBTAINED BY CLEAN CATCH PROCEDURE / Unknown 12/30/2021 9:33 AM CRYSTALIZER OPERATOR 12/30/2021 Narrative Resulting Agency Comment Lab Testing performed at: [facility] [address] [facility] [phone] Juan Ha MD LAB - URINALYSIS ORD ERABLES [facility] INSURANCE BILL [address] [place] [address] * (ABNORMAL) COMPREHENSIVE METABOLIC PANEL (12/30/2021 9:33 AM CRYSTALIZER OPERATOR) Only the most recent of21 resultswithin the time period is included. Glucose 258(H) 65 - 99 mg/dL [facility] INSURANCE BILL BUN 18 8 - 27 mg/dL [facility] INSURANCE BILL Creatinine 1.16 0.76 - 1.27 mg/dL [facility] INSURANCE BILL eGFR by MDRD 61 >59 mL/min/1. 73 [facility] INSURANCE BILL eGFR by MDRD 71 >59 mL/min/1. 73 [facility] INSURANCE BILL Comment: In accordance with recommendations from the NKF-ASN Task force, [facility] is in the process of updating its [...] BLOOD SPECIMEN / Unknown 12/30/2021 9:33 AM CRYSTALIZER OPERATOR 12/30/2021 Narrative Resulting Agency Comment Lab Testing performed at: [email or web address] [address] [facility] [phone] Juan Ha MD LAB - CHEMISTRY SWETHA CHAPPELL Performing Organization Address City/[facility]/ZIP Co de Phone Number [facility] INSURANCE BILL [address] [place] [address] * (ABNORMAL) PROSTATE SPECIFIC ANTIGEN SCREEN (12/30/2021 9:33 AM CRYSTALIZER OPERATOR) Only the most recent of5 resultswithin the time period is included. PSA 4.9(H) 0.0 - 4.0 ng/mL [facility] INSURANCE BILL Comment: Mariza ECLIA methodology. . According to the [employer] [employer], Serum PSA should decrease and remain at undetectable levels after radical prostatectomy. The AUA defines biochemical recurrence as an initial PSA value 0.2 ng/mL or greater followed by a subsequent confirmatory PSA value 0.2 ng/mL or greater. Values obtained with different assay methods or kits cannot be used interchangeably. Results cannot be interpreted as absolute evidence of the presence or absence of malignant disease. FASTING Blood BLOOD SPECIMEN / Unknown 12/30/2021 9:33 AM CRYSTALIZER OPERATOR 12/30/2021 Narrative Resulting Agency Comment Lab Testing performed at: [email or web address] [address] [facility] [phone] Juan Ha MD LAB - CHEMISTRY SWETHA CHAPPELL Performing Organization Address City/[facility]/ZIP Co de Phone Number [facility] INSURANCE BILL [address] [place] [address] * (ABNORMAL) LIPID PROFILE (12/30/2021 9:33 AM CRYSTALIZER OPERATOR) Only the most recent of11 resultswithin the time period is included. Cholesterol 164 100 - 199 mg/dL [facility] INSURANCE BILL Triglycerides 214(H) 0 - 149 mg/dL [facility] INSURANCE BILL HDL Cholesterol 43 >39 mg/dL [facility] INSURANCE BILL VLDL Calculated 36 5 - 40 mg/dL [facility] INSURANCE BILL LDL Calculated 85 0 - 99 mg/dL [facility] INSURANCE BILL Comment NOT NEEDED [facility] INSURANCE BILL Comment: FASTING Ancillary determined the test is not needed. Blood BLOOD SPECIMEN / Unknown 12/30/2021 9:33 AM CRYSTALIZER OPERATOR 12/30/2021 Narrative Resulting Agency Comment Lab Testing performed [facility]: [facility] [address] [facility] [phone] Juan Ha MD LAB - CHEMISTRY SWETHA CHAPPELL [facility] INSURANCE BILL [address] [place] [address] * (ABNORMAL) CULTURE AEROBIC (05/20/2021 12:00 AM CDT) Aerobic Bacterial Culture Final report(A) [facility] INSURANCE BILL Result 1 Morganella morganii(A) [facility] INSURANCE BILL Comment:Heavy growth Result 2 Escherichia coli(A) [facility] INSURANCE BILL Comment:Heavy growth Antimicrobial Susceptibility [facility] INSURANCE BILL Comment: S = Susceptible; I = Intermediate; R = Resistant P = Positive; N = Negative MICS are expressed in micrograms per mL Antibiotic RSLT#1 RSLT#2 RSLT#3 RSLT#4 Amoxicillin/Clavulanic Acid R>=32 S<=2 Ampicillin R>=32 S<=2 Cefazolin R>=64 Cefepime S<=0.12 Ceftriaxone S<=0.25 Cefuroxime R>=64 S =4 Ciprofloxacin S<=0.25 S<=0.25 Ertapenem S<=0.12 S<=0.12 Gentamicin S<=1 S<=1 Imipenem S<=0.25 Levofloxacin S<=0.12 S<=0.12 Meropenem S<=0.25 S<=0.25 Piperacillin/Tazobactam S<=4 S<=4 Tetracycline S<=1 S<=1 Tobramycin S<=1 S<=1 Trimethoprim/Sulfa S<=20 S<=20 Microbiology ENTIRE TOE / Unknown 05/20/2021 05/21/2021 Narrative Resulting Agency Comment Lab Testing performed at: [facility] [phone] Juan Ha MD LAB - MICROBIOLOGY O RDERABLES Performing Organization Address [facility] de Phone Number [facility] INSURANCE BILL [address] [place] [address] * MICROALB/CREAT RATIO URINE RANDOM PANEL (01/07/2021 11:21 AM CRYSTALIZER OPERATOR) Only the most recent of7 resultswithin the time period is included. Creatinine Urine 171.4 Not Estab. mg/dL [facility] INSURANCE BILL Microalbumin Urine 17.1 Not Estab. ug/mL [facility] INSURANCE BILL Microalbumin/Crea tinine Ratio 10 0 - 29 mg/g creat [facility] INSURANCE BILL Comment: Normal: 0 - 29 Moderately increased: 30 - 300 Severely increased: >300 FASTING Urine URINE SPECIMEN OBTAINED BY CLEAN CATCH PROCEDURE / Unknown 01/07/2021 11:21 AM CRYSTALIZER OPERATOR 01/07/2021 Narrative [facility] INSURANCE BILL - 01/08/2021 3:08 PM CRYSTALIZER OPERATOR A courtesy copy of this report has been sent to the patient Resulting Agency Comment Lab Testing performed at: [facility] [phone] Juan Ha MD LAB - URINE CHEMISTR Y ORDERABLES Performing Organization Address [facility] de Phone Number [facility] INSURANCE BILL [address] [place] [address] * TESTOSTERONE TOTAL (01/07/2021 11:21 AM CRYSTALIZER OPERATOR) Testosterone 351 264 - 916 ng/dL [facility] INSURANCE BILL Comment: Adult male reference interval is based on a population of healthy nonobese males (BMI <30) between 19 and 39 years old. [email or web address]. JCEM 2017,102;8038-4048. PMID: [id number]. FASTING Blood BLOOD SPECIMEN / Unknown 01/07/2021 11:21 AM CRYSTALIZER OPERATOR 01/07/2021 Narrative Resulting Agency Comment Lab Testing performed at: [facility] [employer] [address] [facility] [phone] Juan Ha MD LAB - CHEMISTRY SWETHA CHAPPELL [facility] [address] [place] [address] * (ABNORMAL) HEMOGLOBIN A1C (01/07/2021 11:21 AM CRYSTALIZER OPERATOR) Only the most recent of21 resultswithin the time period is included. Hemoglobin A1c 6.5(H) 4.8 - 5.6 % [facility] INSURANCE BILL Comment: . Prediabetes: 5.7 - 6.4 Diabetes: >6.4 Glycemic control for adults with diabetes: <7.0 FASTING Blood BLOOD SPECIMEN / Unknown 01/07/2021 11:21 AM CRYSTALIZER OPERATOR 01/07/2021 Narrative Resulting Agency Comment Lab Testing performed at: [facility] [address] [facility] [phone] uJan Ha MD LAB - CHEMISTRY SWETHA CHAPPELL Performing Organization Address City/[facility]/ZIP Co de Phone Number [facility] INSURANCE BILL [address] [place] [address] * HEMOGLOBIN A1C - POINT OF CARE (AMB) [facility] (07/14/2020) Only the most recent of2 resultswithin the time period is included. Hemoglobin A1c POCT 7.5 BLOOD SPECIMEN / Unknown 07/14/2020 Juan Ha MD LAB - POINT OF CARE ORDERABLES * COLONOSCOPY (03/14/2019 2:44 PM CDT) Narrative 03/14/2019 2:44 PM CDT Ordered by an unspecified provider. Scanned Document SCANNING ONLY * PATHOLOGY/CYTOLOGY REPORT ORDER (01/14/2019 3:41 PM CRYSTALIZER OPERATOR) Narrative 01/14/2019 3:41 PM CRYSTALIZER OPERATOR Ordered by an unspecified provider. Scanned Document LAB - PATHOLOGY/CYTO LOGY ORDERABLES * COLONOSCOPY (01/14/2019 2:50 PM CRYSTALIZER OPERATOR) Narrative 01/14/2019 2:50 PM CRYSTALIZER OPERATOR Ordered by an unspecified provider. Scanned Document SCANNING ONLY * (ABNORMAL) URINALYSIS REFLEX TO MICROSCOPIC NO CULTURE (09/18/2018 9:21 AM CRYSTALIZER OPERATOR) Only the most recent of4 resultswithin the time period is included. [facility] Specific Nettie UA 1.018 1.005 - 1.030 [facility] INSURANCE BILL pH UA 6.0 5.0 - 7.5 [facility] INSURANCE BILL Color UA Yellow Yellow [facility] INSURANCE BILL Appearance Clear Clear [facility] INSURANCE BILL Leukocyte UA Negative Negative [facility] INSURANCE BILL Protein UA Negative Negative/Tra ce [facility] INSURANCE BILL Glucose UA Negative Negative [facility] INSURANCE BILL Ketone UA Trace(A) Negative [facility] INSURANCE BILL Occult Blood Urine Negative Negative [facility] INSURANCE BILL Bilirubin UA Negative Negative [facility] INSURANCE BILL Urobilinogen 0.2 0.2 - 1.0 mg/dL [facility] INSURANCE BILL Nitrite UA Negative Negative [facility] INSURANCE BILL Microscopic Examination Urine [facility] INSURANCE BILL Comment: Microscopic not indicated and not performed. FASTING 09/18/2018 9:21 AM CRYSTALIZER OPERATOR 09/18/2018 Narrative Resulting Agency Comment [facility] [address] [facility] [phone] Juan Ha MD LAB - URINALYSIS ORD ERABLES [facility] INSURANCE BILL [address] [place] [address] * (ABNORMAL) CBC W AUTO DIFFERENTIAL (03/05/2018 8:52 AM CDT) Only the most recent of21 resultswithin the time period is included. [facility] WBC 10.8(H) 3.5 - 10.5 10 3/uL 03/05/2018 9:07 AM CDT [facility] RBC 5.46 4.30 - 5.70 10 6/uL 03/05/2018 9:07 AM CDT [facility] Hemoglobin 15.9 13.5 - 17.5 g/dL 03/05/2018 9:07 AM [facility] Hematocrit 45.1 39.0 - 50.0 % 03/05/2018 9:07 AM [facility] MCV 82.6 81.0 - 97.0 fL 03/05/2018 9:07 AM [facility] MCH 29.1 28.0 - 34.0 pg 03/05/2018 9:07 AM [facility] MCHC 35.3 32.0 - 36.0 g/dL 03/05/2018 9:07 AM [facility] Platelet Count 42(L) 150 - 400 10 3/uL 03/05/2018 9:07 AM [facility] Comment:Checked by repeat an alysis. RDW-SD 39.5 36.0 - 50.0 fL 03/05/2018 9:07 AM [facility] RDW-CV 13.4 11.2 - 14.8 % 03/05/2018 9:07 AM [facility] MPV 12.0 9.3 - 12.8 fL 03/05/2018 9:07 AM [facility] nRBC Absolute 0.00 0 10 3/uL 03/05/2018 9:07 AM [facility] nRBC Auto 0.0 0 /100 WBC 03/05/2018 9:07 AM [facility] Neutrophils % 75.5(H) 35.0 - 70.0 % 03/05/2018 9:07 AM [facility] Lymphocytes % 17.0(L) 19.7 - 55.1 % 03/05/2018 9:07 AM [facility] Monocytes % 5.9 3.0 - 15.0 % 03/05/2018 9:07 AM [facility] Eosinophils % 1.2 0.0 - 6.0 % 03/05/2018 9:07 AM [facility] Basophil % 0.2 0.0 - 1.5 % 03/05/2018 9:07 AM [facility] Neutrophils Absolute 8.1(H) 1.6 - 7.0 10 3/uL 03/05/2018 9:07 AM [facility] Lymphocyte Absolute 1.8 0.8 - 2.9 10 3/uL 03/05/2018 9:07 AM CDT [facility] Monocytes Absolute 0.64 0.14 - 0.66 10 3/uL 03/05/2018 9:07 AM CDT [facility] Eosinophils Absolute 0.13 0.00 - 0.22 10 3/uL 03/05/2018 9:07 AM CDT [facility] Basophils Absolute 0.02 0.00 - 0.06 10 3/uL 03/05/2018 9:07 AM CDT [facility] Immature Granulocytes % 0.2 0.0 - 1.0 % 03/05/2018 9:07 AM CDT [facility] Blood BLOOD SPECIMEN / Unknown Venipuncture / Unknown 03/05/2018 8:52 AM CDT 03/05/2018 9:01 AM CDT Nilson Art MD LAB - HEMATOLOGY ORD ERABLES Performing Organization Address City/[facility]/ZIP Co de Phone Number [address] [phone] * IGG BLOOD (03/05/2018 8:52 AM CDT) IgG 1,044 540 - 1,822 mg/dL 03/05/2018 11:45 AM CDT [facility] Blood BLOOD SPECIMEN / Unknown Venipuncture / Unknown 03/05/2018 8:52 AM CDT 03/05/2018 9:26 AM CDT Nilson Atr MD LAB - CHEMISTRY ORDSelam CHAPPELL [address] [phone] * (ABNORMAL) BASIC METABOLIC PANEL (CALCIUM TOTAL) (05/15/2017 9:00 AM CDT) Only the most recent of2 resultswithin the time period is included. Glucose 196(H) 65 - 99 mg/dL [facility] (BEAKER) BUN 13 8 - 27 mg/dL [facility] (AKER) Creatinine 0.84 0.76 - 1.27 mg/dL [facility] (BEAKER) eGFR non- 89 >59 mL/min/1.7 3 [facility] (BEAKER) eGFR 103 >59 mL/min/1.7 3 [facility] (BEAKER) BUN/Creatinine Ratio 15 10 - 24 [facility] (BEAKER) Sodium 141 134 - 144 mmol/L [facility] (BEAKER) Potassium 4.2 3.5 - 5.2 mmol/L [facility] (BEAKER) Chloride 102 96 - 106 mmol/L [facility] (BEAKER) CO2 22 18 - 29 mmol/L [facility] (BEAKER) Calcium 9.4 8.6 - 10.2 mg/dL [facility] (BEAKER) Blood specimen (specimen) BLOOD SPECIMEN / Unknown 05/15/2017 9:00 AM CDT 05/15/2017 Narrative [facility] - 05/16/2017 7:13 AM CDT Performed at: [address] [place] [id number] Movie Producer: Maikel Perales PhD, Phone: [phone] Specimen Comment: A courtesy copy of this report has been sent to Specimen Comment: the patient. Juan Ha MD LAB - CHEMISTRY SWETHA CHAPPELL [facility] * CK BLOOD (05/15/2017 9:00 AM CDT) CK Total 97 24 - 204 U/L [facility] Blood specimen (specimen) BLOOD SPECIMEN / Unknown 05/15/2017 9:00 AM CDT 05/15/2017 Narrative [facility] (BEAKER) - 05/16/2017 7:13 AM CDT Performed at: [address] [place] [address] [id number] Movie Producer: Maikel Perales PhD, Phone: [phone] Specimen Comment: A courtesy copy of this report has been sent to Specimen Comment: the patient. Juan Ha MD LAB - CHEMISTRY SWETHA CHAPPELL [facility] * FOLATE (04/23/2014 8:29 AM CDT) Folate 15.7 >3.0 ng/mL [facility] (BEAKER) Comment: A serum folate concentration of less than 3.1 ng/mL is considered to represent clinical deficiency. Other (qualifier value) 04/23/2014 8:29 AM CDT 04/23/2014 12:55 PM CDT Narrative [facility] - 04/24/2014 7:31 AM CDT Performed at: [facility] [id number] Movie Producer: Demetrius Morton MD, Phone: [phone] Juan Ha MD LAB - CHEMISTRY SWETHA CHAPPELL Performing Organization Address [facility]/ZIP Co de Phone Number [facility] ([facility]) * TSH (01/09/2014 9:25 AM CRYSTALIZER OPERATOR) Only the most recent of4 resultswithin the time period is included. Pathologist [facility] TSH 1.490 0.450 - 4.500 uIU/mL [facility] Venous blood specimen (specimen) 01/09/2014 9:25 AM CRYSTALIZER OPERATOR 01/09/2014 1:00 PM CRYSTALIZER OPERATOR Narrative [facility] (BEAKER) - 01/10/2014 9:26 AM CRYSTALIZER OPERATOR Performed at: - [address] [id number] Movie Producer: Demetrius Morton MD, Phone: [phone] Juan Ha MD LAB - CHEMISTRY SWETHA CHAPPELL [facility] * PATHOLOGY TISSUE FOR DERMATOLOGY (03/08/2012 12:00 AM CDT) Result CASE: [id number] PATIENT: DUANE TORRES PATHOLOGIC DIAGNOSIS: A. Right forehead: BLUE NEVUS, COMMON TYPE B. Right cheek: ANGIOFIBROMA (FIBROUS PAPULE) CLINICAL DATA: A: Blue nevus vs ink spot lentigo, R/O MM. B: R/O BCC vs fibrous papule. GROSS DESCRIPTION: A: Received is one formalin filled container labeled with the patient's name and designated right forehead. The specimen consists of a shave biopsy measuring 3x3x1 mm. Jar 0. B: Received is one formalin filled container labeled with the patient's name and designated right cheek. The specimen consists of a shave biopsy measuring 5x4x1 and 3x2x1 mm. Jar 0. MICROSCOPIC DESCRIPTION: SPECIMEN A: Within the dermis there are oval, spindle-shaped and dendritic melanocytes with melanophages. SPECIMEN B: This dome-shaped lesion contains dilated blood vessels, coarse collagen bundles, and stellate fibroblasts. Final Diagnosis performed by Kacie Yip M.D. Electronically signed 03/12/2012 2:05:37PM [facility] Comment: Performed at: Dermatopathology Laboratory [facility] - Department of Dermatology [address] [place] [address], Room [address] [place] [address] Phone number: [phone] Toll Free: [phone] FAX: [phone] Skin (tissue) specimen (specimen) 03/08/2012 03/09/2012 Narrative [facility] - 03/12/2012 2:06 PM CDT Preferred Lab:->Derm-Path Specimen A: Type->Shave Site->R forehead History->3 mm dark brown macule Impression->blue nevus vs ink spot lentigo, r/o MM Check Margins:->N/A Prior Biopsy->N/A Specimen B: Type->Shave Site->R cheek History->4 mm pink pearly papule Impression->r/o BCC vs fibrous papule Check Margins:->N/A Prior Biopsy->N/A Historical Provider MD LAB - PATHOLOGY/C YTOLOGY ORDERABLES [facility] [address] [place] [address]. 5th Floor Lab B [address] [phone] * PT-INR [facility] (10/04/2011 1:58 PM CRYSTALIZER OPERATOR) Only the most recent of2 resultswithin the time period is included. Pathologist [facility] INR 1.0 0.8 - 1.2 [facility] Comment: Reference interval is for non-anticoagulated patients. Suggested INR therapeutic range for Vitamin K antagonist therapy: Standard Dose (moderate intensity therapeutic range): 2.0 - 3.0 Higher intensity therapeutic range 2.5 - 3.5 PT 10.6 9.1 - 12.0 sec [facility] Comment:Please note refere nce interval change 10/04/2011 1:58 PM CRYSTALIZER OPERATOR 10/04/2011 9:09 PM CRYSTALIZER OPERATOR Narrative [facility] - 10/05/2011 4:16 PM CRYSTALIZER OPERATOR Performed at: [address] [place] [address] [id number] Movie Producer: Laura Ibanez MD, Phone: [phone] Historical Provider LAB - COAGULATION ORDERABLES [facility] * (ABNORMAL) RIKKI W SINGLE RFLX IF POSITIVE (10/04/2011 1:58 PM CRYSTALIZER OPERATOR) Only the most recent of2 resultswithin the time period is included. Pathologist [facility] RIKKI Direct Positive( A) Negative [facility] (BEAKER) RECRUITING ADMINISTRATOR Antibody <0.2 0.0 - 0.9 AI [facility] (BEAKER) Sheridan Antibody <0.2 0.0 - 0.9 AI [facility] (BEAKER) Antiscleroderma-70 Antibody <0.2 0.0 - 0.9 AI [facility] (BEAKER) Sjogren's Antibodies (SSA) <0.2 0.0 - 0.9 AI [facility] (BEAKER) Sjogren's Antibodies (SSB) 3.6(H) 0.0 - 0.9 AI [facility] Antichromatin Antibody IgG <0.2 0.0 - 0.9 AI [facility] ([employer]) Anti-Caterina-1 <0.2 0.0 - 0.9 AI [facility] ([employer]) Anti-Centromere B Antibody <0.2 0.0 - 0.9 AI [facility] ([employer]) See below [facility] ([employer]) Comment: Autoantibody Disease Association Condition Frequency --------- Antinuclear Antibody, SLE, mixed connective Direct (RIKKI-D) tissue diseases --------- dsDNA SLE 40 - 60% --------- Chromatin Drug induced SLE 90% SLE 48 - 97% --------- SSA (Ro) SLE 25 - 35% Sjogren's Syndrome 40 - 70% Lupus 100% --------- SSB (La) SLE 10% Sjogren's Syndrome 30% --------- Sm (anti-Sheridan) SLE 15 - 30% --------- RECRUITING ADMINISTRATOR Mixed Connective Tissue Disease 95% (U1 nRNP, SLE 30 - 50% anti-ribonucleoprotein) Polymyositis and/or Dermatomyositis 20% --------- Scl-70 (antiDNA Scleroderma (diffuse) 20 - 35% topoisomerase) Crest 13% --------- Caterina-1 Polymyositis and/or Dermatomyositis 20 - 40% --------- Centromere B Scleroderma - Crest variant 80% 10/04/2011 1:58 PM CRYSTALIZER OPERATOR 10/04/2011 9:09 PM CRYSTALIZER OPERATOR Narrative [facility] [employer]) - 10/05/2011 4:16 PM CRYSTALIZER OPERATOR Performed at: [address] [id number] Movie Producer: Laura Ibanez MD, Phone: [phone] Historical Provider LAB - SEROLOGY OR DERABLES [facility] [employer]) * MITOCHONDRIAL ANTIBODY SCREEN (10/04/2011 1:58 PM CRYSTALIZER OPERATOR) Actin (Smooth Muscle) Antibody 10 0 - 19 Units [facility] ([employer]) Comment: Negative 0 - 19 Weak positive 20 - 30 Moderate to strong positive >30 Actin Antibodies are found in 52-85% of patients with autoimmune hepatitis or chronic active hepatitis and in 22% of patients with primary biliary cirrhosis. Mitochondrial M2 Antibody <20.0 0.0 - 20.0 Units [facility] ([employer]) Comment: Negative 0.0 - 20.0 Equivocal 20.1 - 24.9 Positive >24.9 Mitochondrial (M2) Antibodies are found in 90-96% of patients with primary biliary cirrhosis. 10/04/2011 1:58 PM CRYSTALIZER OPERATOR 10/04/2011 9:09 PM CRYSTALIZER OPERATOR Narrative [facility] [employer]) - 10/05/2011 4:16 PM CRYSTALIZER OPERATOR Performed at: [address] [place] [address] [id number] Movie Producer: Laura Ibanez MD, Phone: [phone] Historical Provider LAB - CHEMISTRY O RDERABLES Performing Organization Address [facility] de Phone Number [facility] [employer]) * MICROSOMAL ANTIBODY LIVER/KIDNEY (10/04/2011 1:58 PM CRYSTALIZER OPERATOR) Liver-Kidney Microsomal Antibody 1.5 0.0 - 20.0 Units [facility] [employer]) Comment: Negative 0.0 - 20.0 Equivocal 20.1 - 24.9 Positive >24.9 LKM type 1 antibodies are detected in patients with autoimmune hepatitis type 2 and in up to 8% of patients with chronic HCV infection. 10/04/2011 1:58 PM CRYSTALIZER OPERATOR 10/04/2011 9:09 PM CRYSTALIZER OPERATOR Narrative [facility] [employer]) - 10/05/2011 4:16 PM CRYSTALIZER OPERATOR Performed at: [address] [place] [address] [id number] Movie Producer: Lauar Ibanez MD, Phone: [phone] Historical Provider LAB - CHEMISTRY O RDERABLES Performing Organization Address [facility] Co de Phone Number [facility] ([facility]) * DNA ANTIBODY DOUBLE STRANDED (10/04/2011 1:58 PM CRYSTALIZER OPERATOR) Only the most recent of2 resultswithin the time period is included. [facility] dsDNA Antibody 1 0 - 9 IU/mL [facility] ([facility]) Comment: Negative <5 Equivocal 5 - 9 Positive >9 10/04/2011 1:58 PM CRYSTALIZER OPERATOR 10/04/2011 9:09 PM CRYSTALIZER OPERATOR Narrative [facility] ([facility]) - 10/05/2011 4:16 PM CRYSTALIZER OPERATOR Performed at: [address] [place] [address] [id number] Movie Producer: Laura Ibanez MD, Phone: [phone] Historical Provider LAB - HEMATOLOGY ORDERABLES Performing Organization Address [facility] Co de Phone Number [facility] ([facility]) * (ABNORMAL) RIKKI BLOOD SCREEN (09/26/2011 5:03 PM CRYSTALIZER OPERATOR) Only the most recent of2 resultswithin the time period is included. [facility] RIKKI Direct Positive(A ) Negative [facility]) 09/26/2011 5:03 PM CRYSTALIZER OPERATOR 09/26/2011 10:05 PM CRYSTALIZER OPERATOR Narrative [facility] ([facility]) - 09/28/2011 2:23 PM CRYSTALIZER OPERATOR Performed at: [address] [place] [address] [id number] Movie Producer: Laura Ibanez MD, Phone: [phone] Historical Provider LAB - CHEMISTRY O RDERABLES Performing Organization Address City/[facility] Co de Phone Number [facility]) * HIV-1 HIV-2 ANTIBODY W REFLX HIV1 WB (09/26/2011 5:03 PM CRYSTALIZER OPERATOR) Only the most recent of2 resultswithin the time period is included. [facility] HIV-1/O/2 Antibody Index Value <1.00 <1.00 [facility]) Comment:Index Value: Specime n reactivity relative to the negative cutoff. HIV-1/O/2 Antibody Qualitative Non Reactive Non Reactive [facility] ([facility]) 09/26/2011 5:03 PM CRYSTALIZER OPERATOR 09/26/2011 10:05 PM CRYSTALIZER OPERATOR Narrative [facility] ([facility]) - 09/28/2011 2:23 PM CRYSTALIZER OPERATOR Performed at: [address] [place] [address] [id number] Movie Producer: Laura Ibanez MD, Phone: [phone] Historical Provider LAB - CHEMISTRY O RDERABLES Performing Organization Address [facility] Co de Phone Number [facility] ([facility]) * HEPATITIS C RIBA CONFIRMATION (09/26/2011 5:03 PM CRYSTALIZER OPERATOR) Only the most recent of2 resultswithin the time period is included. Hepatitis C Antibody <0.1 0.0 - 0.9 s/co ratio [facility]) Comment: Negative Not infected with HCV, unless recent infection is suspected or other evidence exists to indicate HCV infection. 09/26/2011 5:03 PM CRYSTALIZER OPERATOR 09/26/2011 10:05 PM CRYSTALIZER OPERATOR Narrative [facility]) - 09/28/2011 2:23 PM CRYSTALIZER OPERATOR Performed at: [address] [place] [address] [phone] Movie Producer: Laura Ibanez MD, Phone: [phone] Historical Provider LAB - SEROLOGY OR DERABLES Performing Organization Address [facility] Co de Phone Number [facility] ([facility]) * FACTOR VII ASSAY (09/26/2011 5:03 PM CRYSTALIZER OPERATOR) Factor VII Activity 119 50 - 150 % [facility]) 09/26/2011 5:03 PM CRYSTALIZER OPERATOR 09/26/2011 10:05 PM CRYSTALIZER OPERATOR Narrative [facility] ([facility]) - 09/28/2011 2:23 PM CRYSTALIZER OPERATOR Performed at: [address] [place], [place] [address], [place] [id number] Movie Producer: Joseph Wick MD, Phone: [phone] Historical Provider LAB - COAGULATION ORDERABLES Performing Organization Address [facility] de Phone Number [facility] * FACTOR V ASSAY (09/26/2011 5:03 PM CRYSTALIZER OPERATOR) Pathologist [facility] Factor V Activity 78 60 - 140 % [facility]) 09/26/2011 5:03 PM CRYSTALIZER OPERATOR 09/26/2011 10:05 PM CRYSTALIZER OPERATOR Narrative [facility] ([facility]) - 09/28/2011 2:23 PM CRYSTALIZER OPERATOR Performed at: [address] [place] [address] [id number] Movie Producer: Joseph Wick MD, Phone: [phone] Historical Provider LAB - COAGULATION ORDERABLES Performing Organization Address [facility] Phone Number [facility] ([facility]) * HELICOBACTER PYLORI ANTIBODY IGG (09/26/2011 5:03 PM CRYSTALIZER OPERATOR) Only the most recent of2 resultswithin the time period is included. Pathologist [facility] Helicobacter pylori Antibody IgG <0.9 0.0 - 0.8 U/mL [facility]) Comment: Negative <0.9 Indeterminate 0.9 - 1.0 Positive >1.0 09/26/2011 5:03 PM CRYSTALIZER OPERATOR 09/26/2011 10:05 PM CRYSTALIZER OPERATOR Narrative [facility] ([facility]) - 09/28/2011 2:23 PM CRYSTALIZER OPERATOR Performed at: [address] [place] [address] [id number] Movie Producer: Laura Ibanez MD, Phone: [phone] Historical Provider LAB - CHEMISTRY O RDERABLES Performing Organization Address [facility] Co de Phone Number [facility]) * PLATELET ASSOCIATED ANTIBODY DIRECT PANEL (09/26/2011 5:03 PM CRYSTALIZER OPERATOR) Only the most recent of2 resultswithin the time period is included. Pathologist [facility] HLA Antibody Screen Negative Negative [facility] Other Negative Negative [facility] (BEAKER) Other Negative Negative [facility] ([facility]) Other Negative Negative [facility] ([facility]) 09/26/2011 5:03 PM CRYSTALIZER OPERATOR 09/26/2011 10:05 PM CRYSTALIZER OPERATOR Narrative [facility] - 09/28/2011 2:23 PM CRYSTALIZER OPERATOR Performed at: - [address] [id number] Movie Producer: Joseph Wick MD, Phone: [phone] Historical Provider LAB - CHEMISTRY O RDERABLES [facility] ([facility]) * PATHOLOGY PERIPHERAL SMEAR REVIEW (09/26/2011 5:03 PM CRYSTALIZER OPERATOR) Pathologist [facility] WBC [facility] Comment: Few lymphocytes appear reactive. Smudge cells present RBC CANCELED [facility] Comment:Result canceled by t rizwan ancillary Comment Platelet Thrombocytop enia. [facility] ([facility]) Comment:Occasional large dallas telets observed. Comment Hematology [facility] ([facility]) Comment: No major morphologic abnormalities seen. Correlation and Clinically appropriate follow up suggested. Cellular Degeneration Noted. Pathologist [facility] ([facility]) Comment: THROMBOPENIA; R/O ITP,THERAPY,HYPERSPLENISM REVIEWED BY Ricardo ADKINS M.D.09/28/2011 SP 09/26/2011 5:03 PM CRYSTALIZER OPERATOR 09/26/2011 10:05 PM CRYSTALIZER OPERATOR Narrative [facility] (BEAKER) - 09/28/2011 2:23 PM CRYSTALIZER OPERATOR Performed at: [address] [id number] Movie Producer: Jayla Grimm MD, Phone: [phone] Performed at: - [address] [id number] Movie Producer: Laura Ibanez MD, Phone: [phone] Historical Provider LAB - PATHOLOGY/C YTOLOGY ORDERABLES Performing Organization Address [facility] Co de Phone Number [facility] * HELICOBACTER PYLORI ANTIBODY IGM (09/26/2011 5:03 PM CRYSTALIZER OPERATOR) Only the most recent of2 resultswithin the time period is included. Helicobacter pylori Antibody IgM <0.80 0.00 - 0.79 index [facility]) Comment: Negative <0.80 Equivocal 0.80 - 1.19 Positive >1.19 Current studies suggest that H. pylori IgM testing should be performed concomitantly with H. pylori IgA and/or IgG tests to support a diagnosis of Helicobacter pylori infection. For research use only, not for use in clinical diagnostic procedures. 09/26/2011 5:03 PM CRYSTALIZER OPERATOR 09/26/2011 10:05 PM CRYSTALIZER OPERATOR Narrative [facility]) - 09/28/2011 2:23 PM CRYSTALIZER OPERATOR Performed at: [address] [place] [address] [id number] Movie Producer: Laura Ibanez MD, Phone: [phone] Historical Provider LAB - SEROLOGY OR DERABLES Performing Organization Address [facility] de Phone Number [facility] * RETIC COUNT (09/26/2011 5:03 PM CRYSTALIZER OPERATOR) Only the most recent of2 resultswithin the time period is included. Reticulocyte % 1.3 0.5 - 3.0 % [facility]) 09/26/2011 5:03 PM CRYSTALIZER OPERATOR 09/26/2011 10:05 PM CRYSTALIZER OPERATOR Narrative [facility]) - 09/28/2011 2:23 PM CRYSTALIZER OPERATOR Performed at: [address] [place] [address] [id number] Movie Producer: Laura Ibanez MD, Phone: [phone] Historical Provider LAB - HEMATOLOGY ORDERABLES Performing Organization Address City/[facility] Co de Phone Number [facility] * (ABNORMAL) LDH BLOOD (09/26/2011 5:03 PM CRYSTALIZER OPERATOR) Only the most recent of2 resultswithin the time period is included. Pathologist [facility] LDH Total 232(H) 0 - 225 IU/L [facility] ([facility]) 09/26/2011 5:03 PM CRYSTALIZER OPERATOR 09/26/2011 10:05 PM CRYSTALIZER OPERATOR Narrative [facility] ([facility]) - 09/28/2011 2:23 PM CRYSTALIZER OPERATOR Performed at: [address] [place] [address] [id number] Movie Producer: Laura Ibanez MD, Phone: [phone] Historical Provider LAB - CHEMISTRY Palak PARR Performing Organization Address [facility]/ZIP Co de Phone Number [facility] ([facility]) * VITAMIN B12 (09/26/2011 4:58 PM CRYSTALIZER OPERATOR) Pathologist [facility] Vitamin B12 442 211 - 946 pg/mL [facility] ([facility]) Venous blood specimen (specimen) 09/26/2011 4:58 PM CRYSTALIZER OPERATOR 09/26/2011 9:53 PM CRYSTALIZER OPERATOR Narrative [facility] ([facility]) - 09/27/2011 5:14 AM CRYSTALIZER OPERATOR Preferred Lab:->[facility] Performed at: [facility] [address] [id number] Movie Producer: Laura Ibanez MD, Phone: [phone] Juan Ha MD LAB - CHEMISTRY SWETHA CHAPPELL [facility] ([facility]) * LAB HISTORICAL RESULTS-ONBASE (08/09/2011) Only the most recent of4 resultswithin the time period is included. 08/09/2011 Historical Provider LAB - CHEMISTRY Palak P[facility] * METHYLMALONIC ACID BLOOD (08/05/2011 10:03 AM CDT) Methylmalonic Acid 171 73 - 376 nmol/L [facility] (PARM[employer]ERAK[employer]) Comment: The reference range for methylmalonic acid has been set at +3sd above the mean for healthy blood bank donors. In the clinical assessment of patients with megaloblastic anemias a cutoff of +3sd provides greater specificity in the diagnosis of the vitamin deficiency states, despite the sacrifice of some sensitivity. 08/05/2011 10:0 3 AM CDT 08/05/2011 6:09 PM CDT Narrative [facility] ([facility]) - 08/09/2011 12:18 PM CDT Performed at: [address] [place] [address] [id number] Movie Producer: Joseph Wick MD, Phone: [phone] Specimen Comment: A courtesy copy of this report has been sent to Specimen Comment: [phone]. Juan Ha MD LAB - CHEMISTRY SWETHA CHAPPELL [facility] ([facility]) Care Teams Donor Services Technician Relationship Specialty Start Date End Date Juan Ha MD PCP - General 07/04/16 Michelle Barbosa, spanish tutorSpotter 02/26/19 Juan Joshi I, OD [address] [place] [address] Heating Unit Mechanic Low Veneer Sawyer [facility]/21[facility] Sivan Marshall [address] [place] [address] 12/21/21
--- OUTSIDE RECORDS SUMMARY | 2025-01-27 14:24 | XMS_ITS | Encounter Summary ---
Author Organization [facility] Address [address] [place] [address] Care Team Providers Care Public Relations Associate Name Role Phone Juan Ha MD Primary Care Provider [phone] Encounter Details Date Type Department Care Team (Late st Contact Info) Description 09/25/2008 Outpatient Historical HIS ORTHOPEDIC TRAUMA Juan Burnett MD NO ADDRESS ON FILE Social History Tobacco Use Types Packs/Day Years Used Date Smoking Tobacco: Never Assessed Sex and Gender Information Value Date Recorded Sex Assigned at Not on file Legal Sex Male 5:29 AM BLAST FURNACE TENDER Gender Identity Not on file Sexual Orientation Not on file documented as of this encounter Plan of Treatment Not on file documented as of this encounter Visit Diagnoses Not on filedocumented in this encounter Care Teams Public Relations Associate Relationship Specialty Start Date End Date Juan Ha MD PCP - General Internal Medicine 08/12/11 documented as of this encounter
--- OUTSIDE RECORDS SUMMARY | 2025-01-27 14:24 | XMS_ITS | Encounter Summary ---
Author Organization [facility] Address [address] [place] [address] Phone Care Team Providers Care Composite Boat Builder Name Role Phone Juan Ha MD Primary Care Provider [phone] Blessing Carpio RN Unavailable [phone] Unknown, Notinfile Primary Care Provider Unavail able No, Physician Primary Care Provider Demetrius Espitia MD Unavailable [phone] Henry Barton MD Unavailable [phone] Encounter Details Date Type Department Care Team (Late st Contact Info) Description 07/02/2021 Orders Only [facility] NEUROMUSCLE Scanning, Provider Social History Tobacco Use Types Packs/Day Years Used Date Smoking Tobacco: Never Sex and Gender Information Value Date Recorded Sex Assigned at Not on file Legal Sex Male 7:17 AM CHIEF DIETITIAN Gender Identity Not on file Sexual Orientation Not on file documented as of this encounter Plan of Treatment Not on file documented as of this encounter Procedures Procedure Name Priority Date/Time Associated Diagnosis Comments SCAN - LABS 07/02/2021 4:57 PM CDT documented in this encounter Results * SCAN - LABS (07/02/2021 4:57 PM CDT) us Provider Scanning Final Result documented in this encounter Visit Diagnoses Not on filedocumented in this encounter Care Teams Composite Boat Builder Relationship Specialty Start Date End Date Juan Ha MD [address] [place] [address] PCP - General 03/13/18 06/19/23 Unknown, Notinfile PCP - General 06/20/23 07/25/23 No, Physician PCP - General 07/26/23 Blessing Carpio, RN [address] [place] [address] Nurse Navigator 03/04/22 08/09/22 Demetrius Espitia MD Radiation Oncologist Radiation Oncology 07/26/23 Henry Barton MD [address] [place] [address] Consulting Physician Urology 07/26/23 documented as of this encounter
--- OUTSIDE RECORDS SUMMARY | 2025-01-27 14:24 | XMS_ITS | Referral Summary ---
Author Organization [facility] Address [address] [facility] [place] [address] Care Team Providers Care Director Global Medical Affairs Name Role Phone Juan Ha MD Primary Care Provider [phone] Michelle Barbosa RN Unavailable Unavailable Juan Joshi I OD Unavailable [phone] [facility] Unavailab le Source Comments [facility],non-owned Affiliates and Associated Physician Practices is amultiple site organization consisting of ambulatory clinics and hospital sitesin [place], [place], [place] and [place]. This disclosure is being madepursuant to the Care Everywhere program and may not contain all information available regarding this patient. Last updated 18.[facility] Allergies Active Allergy Reactions Criticality Noted Date [...] neuropathy 09/18/2017 Overview (01/14/2019): Overview: Neurologist at [facility] Neurologist at [facility] Meniere's disease 01/20/2016 Venous insufficiency (chronic) (peripheral) 07/2016 Obstructive sleep apnea 07/23/2013 Fatty (change of) liver, not elsewhere classifie d 07/23/2013 Actinic keratosis 03/08/2012 Nevus, non-neoplastic 03/08/2012 Other seborrheic keratosis 03/08/2012 Benign lipomatous neoplasm 04/27/2009 Immunizations Name Administration Dates Next Due INFLUENZA VACCINE, TRIV. (AF LURIA, FLUZONE TRIVALENT; 6MO+) (IIV3) 08/13/2012 Covid Fantasy Buzzer primary monoval ent 12+ yr 0.3mL Purple cap 12/28/2020,12/06/2020 DT (AGE 0-7) 10/13/2002 FLU VACCINE QUAD IIV4 SPLIT 0.25 ML IM 09/12/2019 INFLUENZA A [id number] VACCINE 10/26/2009 INFLUENZA VACCINE 10/16/2020, 8,08/03/2017,2010,10/04/2010,11/13/2006 INFLUENZA VACCINE, HIGH-DOSE , QUADR. (FLUZONE HIGH-DOSE QUADRIVALENT; 65Y+), 0.7 ML (HD-IIV4) 08/22/2017,11/22/2016,08/24/2015,2013 INFLUENZA VACCINE, QUADR. (F LUZONE; FLULAVAL; FLUARIX; AFLURIA QUADRIVALENT; 6MO+), 0.5 ML (IIV4) 09/12/2019 PNEUMOCOCCAL PPSV23 07/29/2019,01/21/2014 Pneumococcal Pcv13 Conj 02/10/2015 TDAP (7yrs+) 04/23/2021,04/29/2014 ZOSTER VACCINE, LIVE 11/23/2017 Zoster Hzv Vacc Recombinant Inj Im 10/29/2019, Social History Tobacco Use Types Packs/Day Years [...] Comments Blood Pressure 148/78 01/18/2022 1:00 PM VOLUNTEER SERVICES SUPERVISOR Pulse 75 01/18/2022 1:00 PM VOLUNTEER SERVICES SUPERVISOR Temperature 36.8 C (98.3 F) 01/18/2022 11:25 AM VOLUNTEER SERVICES SUPERVISOR Respiratory Rate 6 01/18/2022 1:00 PM VOLUNTEER SERVICES SUPERVISOR Oxygen Saturation 97% 01/18/2022 1:00 PM VOLUNTEER SERVICES SUPERVISOR Inhaled Oxygen Concentration - - Weight 129.7 kg (286 lb) 01/18/2022 8:05 AM VOLUNTEER SERVICES SUPERVISOR Height 200.7 cm (6' 7 ) 01/18/2022 8:05 AM VOLUNTEER SERVICES SUPERVISOR Body Mass Index 32.22 01/18/2022 8:05 AM VOLUNTEER SERVICES SUPERVISOR Plan of Treatment Not on file Medical Devices Implanted Type Area Vat Packer Device Identifier Shelf Expiration Date Model / Serial / Lot Mesh Srg Ventralight St Sepra 6x4in Implanted:Qty: 1 on 01/18/2022 by Demetrius Saini MD at [facility] N/A: [employer] 08/10/2023 [id number] / / [id number] Sys Fx 37cm Cpsr Str Ss Peek Perm Hndl Implanted:Qty: 1 on 01/18/2022 by Demetrius Saini MD at [facility] N/A: [employer] 09/09/2023 [id number] / / [id number] Procedures Procedure Name Priority Date/Time Associated Diagnosis Comments COMPREHENSIVE METABOLIC PANEL Routine 12/30/2021 9:33 AM VOLUNTEER SERVICES SUPERVISOR Pure hypercholesterolemia MICROALB/CREAT RATIO URINE RANDOM PANEL Routine 01/07/2021 11:21 AM VOLUNTEER SERVICES SUPERVISOR Type 2 diabetes mellitus without complication, without long-term current use of insulin (HCC) HEMOGLOBIN A1C Routine 01/07/2021 11:21 AM VOLUNTEER SERVICES SUPERVISOR Type 2 diabetes mellitus without complication, without long-term current use of insulin (HCC) HEPATITIS C RIBA CONFIRMATION Routine 09/26/2011 5:03 PM VOLUNTEER SERVICES SUPERVISOR from Last 3 Months or Most Recently Relevant to Health Maintenance Results * (ABNORMAL) COMPREHENSIVE METABOLIC PANEL (12/30/2021 9:33 AM VOLUNTEER SERVICES SUPERVISOR) Glucose 258(H) 65 - 99 mg/dL [facility] [...] BLOOD SPECIMEN / Unknown 12/30/2021 9:33 AM VOLUNTEER SERVICES SUPERVISOR 12/30/2021 Narrative Resulting Agency Comment Lab Testing performed at: [facility] [address] [facility] [phone] Juan Ha MD LAB - CHEMISTRY SWETHA CHAPPELL [facility] INSURANCE BILL [address] [place] [address] * MICROALB/CREAT RATIO URINE RANDOM PANEL (01/07/2021 11:21 AM VOLUNTEER SERVICES SUPERVISOR) Creatinine Urine 171.4 Not Estab. mg/dL [facility] INSURANCE BILL Microalbumin Urine 17.1 Not Estab. ug/mL [facility] INSURANCE BILL Microalbumin/Crea tinine Ratio 10 0 - 29 mg/g creat [facility] INSURANCE BILL Comment: Normal: 0 - 29 Moderately increased: 30 - 300 Severely increased: >300 FASTING Urine URINE SPECIMEN OBTAINED BY CLEAN CATCH PROCEDURE / Unknown 01/07/2021 11:21 AM VOLUNTEER SERVICES SUPERVISOR 01/07/2021 Narrative [facility] INSURANCE BILL - 01/08/2021 3:08 PM VOLUNTEER SERVICES SUPERVISOR A courtesy copy of this report has been sent to the patient Resulting Agency Comment Lab Testing performed at: [address] [id number] Juan Ha MD LAB - URINE CHEMISTR Y ORDERABLES Performing Organization Address City/[facility]/ZIP Co de Phone Number [facility] INSURANCE BILL [address] [place] [address] * (ABNORMAL) HEMOGLOBIN A1C (01/07/2021 11:21 AM VOLUNTEER SERVICES SUPERVISOR) Hemoglobin A1c 6.5(H) 4.8 - 5.6 % [facility] Comment: . Prediabetes: 5.7 - 6.4 Diabetes: >6.4 Glycemic control for adults with diabetes: <7.0 FASTING Blood BLOOD SPECIMEN / Unknown 01/07/2021 11:21 AM VOLUNTEER SERVICES SUPERVISOR 01/07/2021 Narrative Resulting Agency Comment Lab Testing performed at: [address] [phone] Juan Ha MD LAB - CHEMISTRY ORDE RABLES Performing Organization Address [facility] de Phone Number [facility] INSURANCE BILL [address] [place] [address] * HEPATITIS C RIBA CONFIRMATION (09/26/2011 5:03 PM VOLUNTEER SERVICES SUPERVISOR) Hepatitis C Antibody <0.1 0.0 - 0.9 s/co ratio [facility] (BEAKER) Comment: Negative Not infected with HCV, unless recent infection is suspected or other evidence exists to indicate HCV infection. 09/26/2011 5:03 PM VOLUNTEER SERVICES SUPERVISOR 09/26/2011 10:05 PM VOLUNTEER SERVICES SUPERVISOR Narrative [facility] (BEAKER) - 09/27/2011 7:28 AM VOLUNTEER SERVICES SUPERVISOR Performed at: - [address] [id number] [employer] Handling Plant Operator: Laura Ibanez MD, Phone: [phone] Historical Provider LAB - SEROLOGY OR DERABLES [facility] RED) from Last 3 Months or Most Recently Relevant to Health Maintenance Care Teams Director Global Medical Affairs Relationship Specialty Start Date End Date Juan Ha MD PCP - General 07/04/16 Michelle Barbosa, financial systems directorDrophammer Operator 02/26/19 Juan Joshi OD [address] [facility] DEPT [place] [id number] Production Material Coordinator Low Material Dispatcher 12/21/21 [facility] [address] [place] [address] 12/21/21
--- OUTSIDE RECORDS SUMMARY | 2025-01-27 14:24 | XMS_ITS | Clinical Summary ---
Author Organization [address] Address [address] [place] [address] Care Team Providers Care Ob/Gyn Name Role Phone No, Physician Primary Care Provider [phone] Demetrius Espitia MD Unavailable [phone] Henry Barton MD Unavailable [phone] Allergies Active Allergy Reactions Criticality Noted Date [...] 100 mg by mouth once a week Active DULoxetine DR (CYMBALTA) 60 mg capsule [...] tablets (20 mg total) by mouth nightly 3 Active tiZANidine (Zanaflex) 4 mg tablet [...] neuropathy 09/18/2017 Overview (03/18/2022): Overview: Neurologist at [facility] Neurologist at [facility] Other chronic pain 09/18/2017 Primary osteoarthritis [...] Date Resolved Date Pituitary mass 03/18/2022 11/21/2023 Encounters Date Type Department Care Team Description 12/11/2024 2:57 PM PHOTO SPECIALIST - 12/11/2024 11:59 PM PHOTO SPECIALIST Hospital Encounter [facility] [place] - [place] [address] [facility] Floor [address] [place] [address] Pituitary adenoma (HCC) Discharge Disposition: Discharge to home or self care 12/11/2024 1:00 PM PHOTO SPECIALIST Office Visit [facility] [address] [facility] Floor 1, [address] [place] [address] Herbert Sneed MD Pituitary adenoma (HCC) (Primary Dx) 12/11/2024 7:00 AM PHOTO SPECIALIST - 12/11/2024 11:59 PM PHOTO SPECIALIST Hospital Encounter [facility] - MRI [address] [facility] Floor 8 [place] [address] Pituitary adenoma (HCC) Discharge Disposition: Discharge to home or self care 12/05/2024 Telephone [facility] [address] [facility] Floor 1, [address] [place] [address] Herbert Sneed MD 11/26/2024 Orders Only [facility] [address] [facility] Floor 1, [address] [place] [address] Herbert Sneed MD Pituitary adenoma (HCC) (Primary Dx) 11/11/2024 Orders Only [facility] [address] [facility] 6th [place] [address] Herbert Sneed MD Pituitary adenoma (HCC) (Primary Dx) from Last 3 Months Immunizations Immunization Administration Dates Next Due DT [...] 04/23/2021,04/29/2014 ZOSTER LIVE 11/23/2017 ZOSTER Recombinant 10/29/2019,07/29/2019 Surgical History Surgery Date Site/Laterality Comments REPLACEMENT TOTAL KNEE BILATERAL UMBILICAL HERNIA REPAIR MOHS SURGERY Medical History Medical History Date Comments Thrombocytopenia 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4 F) 12/11/2024 12:18 PM PHOTO SPECIALIST Respiratory Rate 16 01/11/2019 11:45 AM PHOTO SPECIALIST Oxygen Saturation 98% 01/04/2024 9:02 AM PHOTO SPECIALIST Inhaled Oxygen Concentration - - Weight 122.5 kg (270 lb) 12/11/2024 12:18 PM PHOTO SPECIALIST Height 200.7 cm (6' 7 ) 12/11/2024 12:18 PM PHOTO SPECIALIST Body Mass Index 30.42 12/11/2024 12:18 PM PHOTO SPECIALIST Plan of Treatment Health Maintenance Due Date Last Done Comments Albumin Creatinine Ratio, Urine 1945 Depression Screening 1945 Fall Risk Assessment 1945 Hepatitis C Screening 1945 eGFR 1945 Dilated Eye Exam 1945 Foot Exam 1945 Hepatitis B Screening 1964 Abdominal Aortic Aneurysm (A AA) Screen 2011 Well Visit 65+ 2011 Hemoglobin A1C 07/07/2021 01/07/2021, 11/0 04/2018, 05/15/2018, Additional history exists Lipid Panel 12/30/2022 12/30/2021 Covid-19 Vaccine ( - 2023-2 5 season) 2024 09/10/2021, 12/28/2020, 12/06/2020 DTaP/Tdap/Td Vaccine (4 - Td or Tdap) 04/23/2031 04/23/2021, 04/29/2014, 10/13/2002 Colon Cancer Screening-CT Colonography Discontinued 01/11/2019 Colon Cancer Screening-Colonoscopy Discontinued 01/11/2019 Colon Cancer Screening-DNA Stool Discontinued 01/12/20 19 Colon Cancer Screening-FIT Discontinued 01/11/2019 Colon Cancer Screening-FOBT Discontinued 01/11/2019 Colon Cancer Screening-Sigmoidoscopy Discontinued 01/11/2019 Colorectal Cancer Screening Discontinued Pneumococcal vaccine 65+ Completed 019, 02/10/2015, 01/21/2014 Zoster Vaccine Completed 10/29/2019, 07/14, 11/23/2017 Influenza Vaccine Completed 11/25/2024, , 12/14/2021, Additional history exists Medical Devices Implanted Type Area Phys Therapist Device Identifier Shelf Expiration Date Model / Serial / Lot Bilateral Total Knee Arthroplasty Bilateral : Knee Procedures Procedure Name Priority Date/Time Associated Diagnosis Comments CT SOFT TISSUE NECK W CONTRAST Schedule Routine, Read Routine (OP Routine) 12/11/2024 3:56 PM PHOTO SPECIALIST Pituitary adenoma (HCC) MRI BRAIN W WO CONTRAST (PITUITARY) Schedule Routine, Read Routine (OP Routine) 12/11/2024 7:46 AM PHOTO SPECIALIST Pituitary adenoma (HCC) COLONOSCOPY 01/11/2019 7:11 AM PHOTO SPECIALIST from Last 3 Months or Most Recently Relevant to Health Maintenance Results * CT Neck Soft Tissue W Contrast (12/11/2024 3:56 PM PHOTO SPECIALIST) Anatomical Region Laterality Modality Head and Neck N/A Computed Tomogra phy 12/11/2024 5:00 PM PHOTO SPECIALIST Impressions 12/11/2024 5:43 PM PHOTO SPECIALIST Homogeneously enhancing lesion splaying the left external [...] Sergio Piedra M.D. Narrative 12/11/2024 5:43 PM PHOTO SPECIALIST EXAMINATION: CT of the neck with contrast [...] Sergio Piedra M.D. us Herbert Sneed MD IM CT PROCEDURES Final R esult * MRI Brain W WO Contrast (Pituitary) (12/11/2024 7:46 AM PHOTO SPECIALIST) Anatomical Region Laterality Modality Head and Neck N/A Magnetic Resonan ce 12/11/2024 12:5 4 PM PHOTO SPECIALIST Impressions 12/11/2024 12:54 PM PHOTO SPECIALIST 1. 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 Narrative 12/11/2024 12:54 PM PHOTO SPECIALIST EXAMINATION: Magnetic resonance imaging (MRI) of the [...] reference PET/CT done on 07/12/2023. Procedure Note VoGladys MD - 12/11/2024 EXAMINATION: Magnetic resonance imaging [...] study. Electronically signed by: Gladys Gutierrez M.D. Herbert Sneed MD [facility] MRI PROCEDURES Final Result * COLONOSCOPY (01/11/2019 7:11 AM PHOTO SPECIALIST) Anatomical Region Laterality Modality Other Narrative Procedure Note Cedric Frausto MD PhD - 01/11/2019 7:11 AM CST [facility] Patient Name: Duane Torres Procedure Date: 01/11/2019 7:11 AM Date of : 1945 Admit Type: Outpatient Age: 73 Gender: Male Attending MD: Cedric Frausto MD, PHD Room: [facility] OPERATING ROOM 02 Note Status: Finalized Procedure: [...] The scope was passed under direct vision.The [id number] Endoscope was introduced throughthe anus and advanced [...] On: 01/11/2019 7:11 AM Recognized by the [place] [employer] for promoting quality in endoscopy Cedric Frausto MD PhD ENDOSCOPY PROCEDURES Final Result from Last 3 Months or Most Recently Relevant to Health Maintenance Insurance MEDICARE [employer] [place] [place] [facility] [place] [facility] MEDICARE [facility] MEDICARE [facility] Care Teams Ob/Gyn Relationship Specialty Start Date End Date No, Physician PCP - General 07/26/23 Demetrius Espitia MD Radiation Oncologist Radiation Oncology 07/26/23 Henry Barton MD [address] [place] [address] Consulting Physician Urology 07/26/23
--- OUTSIDE RECORDS SUMMARY | 2025-01-27 14:24 | XMS_ITS | Encounter Summary ---
Author Organization [facility] Address 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
--- OUTSIDE RECORDS SUMMARY | 2025-01-27 14:24 | XMS_ITS | Encounter Summary ---
Author Organization [facility] Address [address] [place] [address] Care Team Providers Care Dispatch Coordinator Name Role Phone Juan Ha MD Primary Care Provider [phone] Michelle Barbosa RN Unavailable Unavailable Juan Joshi I OD Unavailable [facility] Unavailab le Encounter Details Date Type Department Care Team (Late st Contact Info) Description 12/23/2021 Telephone [facility] [address] [place] [address] Demetrius Saini MD [address] [facility] [address] [place] [id number] Social History Tobacco Use Types Packs/Day Years [...] on filedocumented in this encounter Care Teams Dispatch Coordinator Relationship Specialty Start Date End Date Juan Ha MD PCP - General 07/04/16 Michelle Barbosa, html web developerPaper Reclaiming Machine Operator 02/26/19 Juan Joshi I, OD [address] [facility] [place] [address] Cloud Architect Low Feeder/Folder 12/21/21 [facility] Sivan Jimenez [address] [place] [address] 12/21/21 documented as of this encounter
--- OUTSIDE RECORDS SUMMARY | 2025-01-27 14:24 | XMS_ITS | Encounter Summary ---
Author Organization [employer] [facility] Address 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 Gender Identity Not on file Sexual Orientation Not on file documented as of this encounter Plan of Treatment Not on file documented as of this encounter Procedures Procedure Name Priority Date/Time Associated Diagnosis Comments SOURCE, FLUID Routine 10/22/2007 12:15 PM MANAGER PROGRAMMING SYNOVIAL FLUID CRYSTAL Routine 10/22/2007 12:15 PM MANAGER PROGRAMMING documented in this encounter Results * SOURCE, FLUID (10/22/2007 12:15 PM MANAGER PROGRAMMING) SOURCE FLUID Knee, Right INTERFACE SYSTEM 10/22/2007 12:1 5 PM MANAGER PROGRAMMING us Juan Burnett MD HEMATOLOGY ORDERABLES Edited INTERFACE SYSTEM Refer to clinic/hospital department * (ABNORMAL) SYNOVIAL FLUID CRYSTAL (10/22/2007 12:15 PM MANAGER PROGRAMMING) JOINT FLD CRYSTAL QTY Few(A) Negative INTERFACE SYSTEM JOINT FLD CRYSTAL Unidentifiable INTERFACE SYSTEM Comment:probably basic Calci um phosphate CRYSTALS INTERPRETED BY: El Hill MD INTERFACE SYSTEM 10/22/2007 12:1 5 PM MANAGER PROGRAMMING us Juan Burnett MD BODY FLUIDS AND STOOLS Edited INTERFACE SYSTEM Refer to clinic/hospital department documented in this encounter Visit Diagnoses Diagnosis Pain in joint, lower leg documented in this encounter Care Teams Commercial Construction Superintendent Relationship Specialty Start Date End Date Juan Ha MD PCP - General Internal Medicine 08/12/11 documented as of this encounter
--- OUTSIDE RECORDS SUMMARY | 2025-01-27 14:24 | XMS_ITS | Clinical Summary ---
Author Organization [facility] Address [address] [place] [address] Phone Care Team Providers Care Cheese Cooker Name Role Phone Juan Ha MD Primary Care Provider [phone] Allergies No known active allergies Medications hydrochlorothiaz yanely 25 mg Oral tablet Take 25 mg by mouth daily. Active polyethylene glycol (MIRALAX) 17 gram Oral PwPk Take 17 Gram by mouth daily. Active multivitamin (DAILY-ANTOINE) Oral tablet Take 1 Tab by mouth daily. Active oxyCODONE CR (OXYCONTIN) 40 mg Oral tablet Take 1 Tab by mouth every 12 hours. 10 Tab 0 02/03/2012 Active oxyCODONE-acetam inophen (PERCOCET) 5-325 mg Oral tablet Take 2 Tabs by mouth every 4 hours as needed for Pain, Moderate. 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 Gender Identity Not on file Sexual Orientation Not on file Occupation Industry Job Start Date Job End Date Not on file Not on file Not on file Not on file Last Filed Vital Signs Vital Sign Reading Time Taken Comments Blood Pressure 152/68 02/03/2012 6:14 AM CDT Pulse 78 02/03/2012 6:14 AM CDT Temperature 36.2 C (97.2 F) 02/03/2012 6:14 AM CDT Respiratory Rate 18 02/03/2012 6:14 AM CDT Oxygen Saturation 94% 02/03/2012 6:14 AM CDT Inhaled Oxygen Concentration - - Weight 151.5 kg (334 lb) 01/23/2012 9:37 AM CDT Height 200.7 cm (6' 7 ) 01/23/2012 9:37 AM CDT Body Mass Index 37.63 01/23/2012 9:37 AM CDT Plan of Treatment Health Maintenance Due Date Last Done Comments DTAP/TDAP/TD VACCINES (1 - Tdap) 1965 PNEUMOCOCCAL VACCINE 50+ YEARS (1 of 1 - PCV) 08/28/19 96 ZOSTER VACCINE (1 of 2) 1996 RSV VACCINE (60+ or ) (1 - 1-dose 75+ series) 2021 INFLUENZA VACCINE (#1) 2024 Medical Devices Implanted Type Area Ceo & Board Director Device Identifier Shelf Expiration Date Model / Serial / Lot Art Surface Nxgn Cr-Flx [id number] 0 - [id number] Implanted:Qty : 1 on 01/31/2012 at [facility] Knee Left: Knee [employer] 12/13/2018 [id number] / / [id number] Russell Femoral Component Implanted:Qty : 1 on 01/31/2012 by Juan Burnett MD at [facility] Knee Left: Knee [employer] 09/12/2016 / / [id number] Comp Tib Nxgn Tm [id number] 2 - [id number] Implanted:Qty : 1 on 01/31/2012 at [facility] Knee Left: Knee [employer] 05/12/2020 [id number] / / [id number] Insurance [facility] [address] MEDICARE PART A HOSPITAL ONLY Advance Directives For more information, please contact: [phone] * Full Code (Latest Code Status on File) Date Activated Date Inactivated Comments 01/31/2012 12:39 PM 02/03/2012 1:55 PM * Full Code Date Activated Date Inactivated Comments 01/31/2012 10:30 AM 01/31/2012 12:39 PM * Full Code Date Activated Date Inactivated Comments 01/31/2012 8:44 AM 01/31/2012 10:30 AM * Full Code Date Activated Date Inactivated Comments 01/31/2012 6:13 AM 01/31/2012 8:44 AM Care Teams Cheese Cooker Relationship Specialty Start Date End Date Juan Ha MD PCP - General Internal Medicine 08/12/11
--- OUTSIDE RECORDS SUMMARY | 2025-01-27 14:24 | XMS_ITS ---
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 Past Treatment and Therapy Plans No past plan information found. 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
--- OUTSIDE RECORDS SUMMARY | 2025-01-27 14:24 | XMS_ITS | Encounter Summary ---
Author Organization [facility] Address 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 Gender Identity Not on file Sexual Orientation Not on file documented as of this encounter Plan of Treatment Not on file documented as of this encounter Procedures Procedure Name Priority Date/Time Associated Diagnosis Comments HEMOGLOBIN AND HEMATOCRIT Routine 09/12/2008 6:49 AM CDT HEMOGLOBIN AND HEMATOCRIT Routine 09/11/2008 7:26 AM CDT XR KNEE 1 OR 2 VW RIGHT Stat 09/10/2008 10:50 AM CDT XR CHEST PA AND LATERAL 2 VW Pre-Operative 09/04/2008 11:28 AM CDT PT AND APTT Routine 09/04/2008 10:43 AM CDT CBC WITH DIFFERENTIAL Routine 09/04/2008 10:43 AM CDT COMPREHENSIVE METABOLIC PANEL Routine 09/04/2008 10:43 AM CDT TYPE AND CROSSMATCH Routine 09/04/2008 1 0:41 AM CDT URINALYSIS WITH REFLEX CULTURE Routine 09/04/2008 10:20 AM CDT URINALYSIS W/REFLEX MICROSCOPIC Routine 09/04/2008 10:20 AM CDT documented in this encounter Results * (ABNORMAL) HEMOGLOBIN AND HEMATOCRIT (09/12/2008 6:49 AM CDT) HEMOGLOBIN 10.6(L) 13.6 - 16.5 g/dL [facility] HEMATOCRIT 31.7(L) 40.0 - 48.0 % [facility] Blood specimen (specimen) 09/12/2008 6:49 AM CDT 09/12/2008 8:06 AM CDT Juan Ramos MD HEMATOLOGY ORDERABLES Final Resu lt Performing Organization Address [facility] de Phone Number INTERFACE SYSTEM Refer to clinic/hospital department [facility] CLIA# [id number] [address] [place] [address] * (ABNORMAL) HEMOGLOBIN AND HEMATOCRIT (09/11/2008 7:26 AM CDT) HEMATOCRIT 38.4(L) 40.0 - 48.0 % [facility] HEMOGLOBIN 12.8(L) 13.6 - 16.5 g/dL [facility] Blood specimen (specimen) 09/11/2008 7:26 AM CDT 09/11/2008 7:51 AM CDT Juan Ramos MD HEMATOLOGY ORDERABLES Final Resu lt Performing Organization Address [facility] de Phone Number INTERFACE SYSTEM Refer to clinic/hospital department [facility] CLIA# [id number] [address] [place] [address] * XR KNEE 1 OR 2 VW RIGHT (09/10/2008 10:50 AM CDT) Anatomical Region Laterality Modality Lower Extremity Other 09/10/2008 10:5 0 AM CDT Narrative 09/10/2008 11:07 AM CDT [address] [address] Admit Date: 09/10/2008 DUANE TORRES Sex: M Admit Prov: JUAN RAMOS Date: 1945 Primary Care Prov: PCP, UNKNOWN CMRN: [id number] Room: [place] [address] SSN: [id number] IMAGING SERVICES Ordering Prov: N/A Accession Number: [id number] Interpretation Right knee 2 views 09/10/2008 History: Postop. 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 No acute fracture is visualized. There is joint effusion. . Dictated by: NETTE MOODY 09/10/2008 11:05 Electronically signed by: NETTE MOODY 09/10/2008 11:05 Procedure Note Nette Moody - 09/10/[address] [address] Admit Date: 09/10/2008 DUANE TORRES Sex: M Admit Prov: JUAN RAMOS Date:1945 Primary Care Prov: PCP, UNKNOWN CMRN: [id number] Room: [place] [address] SSN: [id number] IMAGING SERVICES Ordering Prov: N/A Interpretation Right knee 2 views 09/10/2008 History: Postop. Findings: The postsurgical changes with total right knee replacementare seen . No acute fracture is visualized. There is joint effusion. . Dictated by: NETTE MOODY 09/10/2008 11:05 Electronically signed by: NETTE MOODY 09/10/2008 11:05 us Juan Ramos MD DIAGNOSTIC IMAGING ORDERABLES Fi nal Result * XR CHEST PA AND LATERAL (09/04/2008 11:28 AM CDT) Anatomical Region Laterality Modality Chest Other 09/04/2008 11:2 8 AM CDT Narrative 09/04/2008 11:58 AM CDT [place] [address] [place], [place] [address] Admit Date: 08/22/2008 DUANE TORRES Sex: M Admit Prov: JUAN RAMOS Date: 1945 Primary Care Prov: PCP, UNKNOWN CMRN: [id number] Room: SURG-A SSN: [address] [place] [address] IMAGING SERVICES Ordering Prov: N/A Accession Number: [id number] Interpretation PA and lateral chest x-ray. History: Orthopedic surgery planned, shortness of breath. Findings: The lung cedeño are clear and well aerated without significant infiltrate. There is no pneumothorax or pleural effusion. The heart size is normal. No prior chest exams are available for comparison. Impression: No acute disease. . Dictated by: SONNY RADER 09/04/2008 11:49 Electronically signed by: SONNY RADER 09/04/2008 11:57 Procedure Note Sonny Rader MD - 09/04/[address] [address] Admit Date: 08/22/2008 DUANE TORRES Sex: M Admit Prov: JUAN RAMOS Date:1945 Primary Care Prov: PCP, UNKNOWN CMRN: [id number] Room: SURG-A SSN: [id number] IMAGING SERVICES Ordering Prov: N/A Interpretation PA and lateral chest x-ray. History: Orthopedic surgery planned, shortness of breath. Findings: The lung cedeño are clear and well aerated withoutsignificant infiltrate. There is no pneumothorax or pleural effusion. The heartsize is normal. No prior chest exams are available for comparison. Impression: No acute disease. . Dictated by: SONNY RADER 09/04/2008 11:49 Electronically signed by: SONNY RADER 09/04/2008 11:57 Juan Ramos MD DIAGNOSTIC IMAGING ORDERABLES Fi nal Result * (ABNORMAL) CBC WITH DIFFERENTIAL (09/04/2008 10:43 AM CDT) WBC 6.8 4.0 - 9.8 K/uL [facility] MCH 29.5 27.2 - 32.6 pg [facility] HEMATOCRIT 45.7 40.0 - 48.0 % [facility] RDW-STDEV 42.3 37.1 - 48.7 fL [facility] RBC 5.26 4.50 - 5.40 M/uL [facility] MCHC 33.9 31.5 - 35.5 % [facility] MCV 86.9 82.0 - 99.0 fL [facility] HEMOGLOBIN 15.5 13.6 - 16.5 g/dL [facility] RDW 13.4 11.5 - 14.5 % [facility] BASOPHILS 0 0 - 2 % [facility] BASOPHILS ABSOLUTE 0.01 0.00 - 0.20 K/uL [facility] MONOCYTES 8 3 - 13 % [facility] MONOCYTE ABSOLUTE 0.57 0.10 - 1.30 K/uL [facility] NEUTROPHILS 59 45 - 70 % [facility] NEUTROPHIL ABSOLUTE 3.95 1.90 - 7.00 K/uL [facility] EOSINOPHILS 2 0 - 7 % [facility] EOSINOPHIL ABSOLUTE 0.14 0.00 - 0.70 K/uL [facility] LYMPHOCYTES 31 16 - 45 % [facility] LYMPHOCYTE ABSOLUTE 2.08 0.70 - 4.50 K/uL [facility] MPV 12.8(H) 9.3 - 12.4 fL [facility] PLATELETS 83(L) 140 - 350 K/uL [facility] Comment: Platelets verified by smear review. Blood specimen (specimen) 09/04/2008 10:43 AM CDT 09/04/2008 12:01 PM CDT Juan Ramos MD HEMATOLOGY ORDERABLES Edited INTERFACE SYSTEM Refer to clinic/hospital department [facility] CLIA# [id number] [address] [place], [place] [address] * (ABNORMAL) COMPREHENSIVE METABOLIC PANEL (09/04/2008 10:43 AM CDT) GLUCOSE 122(H) 65 - 99 mg/dL [facility] AST 25 12 - 38 U/L [facility] BUN 14 6 - 20 mg/dL [facility] CALCIUM 9.8 8.6 - 10.2 mg/dL [facility] CHLORIDE 101 96 - 108 mmol/L [facility] ALBUMIN 4.6 3.4 - 4.8 g/dL [facility] CREATININE 0.91 0.67 - 1.17 mg/dL [facility] SODIUM 138 135 - 145 mmol/L [facility] ALT 45(H) 0 - 41 U/L [facility] ALKALINE PHOSPHATASE 63 40 - 129 U/L [facility] BILIRUBIN TOTAL 0.4 0.2 - 1.0 mg/dL [facility] CO2 26 22 - 30 mmol/L [facility] TOTAL PROTEIN 7.2 6.3 - 8.6 g/dL [facility] POTASSIUM 3.6 3.5 - 4.9 mmol/L [facility] GFR, >60 >=60 mL/min/1. 7 sq meter [facility] GFR >60 >=60 mL/min/1. 7 sq meter [facility] Comment: Modification of Diet in Renal Disease (MDRD) study formula. Estimated GFR rate interpretative information for both Americans and non- Americans is available on the [facility] Intranet at: [email or web address] Select: Lab Policies and Procedures Select: Reference Ranges - GFR Blood specimen (specimen) 09/04/2008 10:43 AM CDT 09/04/2008 12:01 PM CDT Juan Ramos MD CHEMISTRY ORDERABLES Edited INTERFACE SYSTEM Refer to clinic/hospital department [facility] CLIA# [id number] [address] [place] [address] * PT AND APTT (09/04/2008 10:43 AM CDT) PROTIME 13.3 12.7 - 15.1 Seconds [facility] INR 1.0 0.9 - 1.1 [facility] Comment: INR Therapeutic Range: Adult: 2.0 - 3.0 for pulmonary embolism or prophylaxis against venous thrombosis or systemic embolization. 2.0 - 3.0 for patients with tissue heart valves. 2.5 - 3.5 for patients with mechanical heart valves or post SC. Pediatric (12 years and under): 1.5 - 3.0 Although the target range in children is not well established, INR values of 1.5 - 3.0 are recommended for most patients. Higher values have been used in children with prosthetic cardiac valves and hereditary clotting disorders. [place] (<3 days) therapeutic ranges have not been established. PTT 27.8 24.4 - 36.4 Seconds [facility] Comment: PTT Therapeutic Range: Heparin Level PTT (seconds) <0.10 units/mL <53 0.10 - 0.30 units/mL 53 - 67 0.30 - 0.70 units/mL* 67 - 95* 0.70 - 1.00 units/mL 95 - 116 *corresponds to therapeutic range for unfractionated heparin Blood specimen (specimen) 09/04/2008 10:43 AM CDT 09/04/2008 12:01 PM CDT Result [facility] Juan Ramos MD HEMATOLOGY ORDERABLES Edited Performing Organization Address [facility] Phone Number INTERFACE SYSTEM Refer to clinic/hospital department [facility] CLIA# [id number] [address] [facility] [place] [address] * TYPE AND CROSSMATCH (09/04/2008 10:41 AM CDT) HISTORY CHECK No Historical ABO/Rh [facility] SPECIMEN LIFE 3 days from OR date [facility] ABO/RH TYPE O Positive [facility] ANTIBODY SCREEN Negative [facility] Blood specimen (specimen) 09/04/2008 10:41 AM CDT Juan Ramos MD BLOOD BANK ORDERABLES Edited Performing Organization Address [facility] Phone Number INTERFACE SYSTEM Refer to clinic/hospital department [facility] CLIA# [id number] [address] [place] [address] * URINALYSIS (09/04/2008 10:20 AM CDT) COLOR UA Yellow [facility] NITRITE UA Negative Negative [facility] UROBILINOGEN UA <1 <=1 mg/dL [facility] PH UA 6.0 5.0 - 8.0 [facility] KETONES UA Negative Negative [facility] CLARITY UA Clear Clear [facility] BILIRUBIN UA Negative Negative [facility] PROTEIN UA Negative Negative [facility] LEUKOCYTE ESTERASE UA Negative Negative [facility] SPECIFIC GRAVITY UA 1.016 1.001 - 1.035 [facility] GLUCOSE UA Negative Negative [facility] BLOOD UA Negative Negative [facility] 09/04/2008 10:2 0 AM CDT 09/04/2008 12:02 PM CDT Juan Ramos MD URINE ORDERABLES Final Result Performing Organization Address [facility] Phone Number INTERFACE SYSTEM Refer to clinic/hospital department [facility] CLIA# [id number] [address] [place] [address] * URINALYSIS WITH REFLEX CULTURE (09/04/2008 10:20 AM CDT) URINE CULTURE ORDER Not indicated [facility] Comment: Criteria for a reflex culture include one or more of the following: Abnormal nitrite, leukocyte esterase, WBCs or RBCs. Lack of qualifying criteria does not exclude the possiblity of a urinary tract infection. Dilute urine, drug interference, etc. may decrease the sensitivity of the criteria analytes. Urine specimen (specimen) 09/04/2008 10:20 AM CDT 09/04/2008 12:02 PM CDT Juan Ramos MD URINE ORDERABLES Final Result Performing Organization Address [facility] Phone Number INTERFACE SYSTEM Refer to clinic/hospital department [facility] CLIA# [id number] [address] [place] [address] documented in this encounter Visit Diagnoses Diagnosis Osteoarthrosis, unspecified whether generalized or localized, unspecified site documented in this encounter Care Teams Franchise Broker Relationship Specialty Start Date End Date Juan Ha MD PCP - General Internal Medicine 08/12/11 documented as of this encounter
--- OUTSIDE RECORDS SUMMARY | 2025-01-27 14:24 | XMS_ITS | Clinical Summary ---
Author Organization [facility] Address [address] [place] [address] Care Team Providers Care Keno Writer / Runner Name Role Phone Morena Denny MD Primary Care Provider [phone] Social History Tobacco Use Types Packs/Day Years Used Date Smoking Tobacco: Never Assessed Sex and Gender Information Value Date Recorded Sex Assigned at Not on file Legal Sex Male 8:16 PM CDT Gender Identity Not on file Sexual Orientation Not on file Plan of Treatment Health Maintenance Due Date Last Done Comments Hepatitis C 1964 DTaP, Tdap and Td Vaccines ( 1 - Tdap) 1965 Zoster Vaccines (1 of 2) 1996 Pneumococcal Vaccine: 65+ Ye ars (1 of 1 - PCV) 2011 RSV Immunization or 60+ Years (1 - 1-dose 75+ series) 2021 COVID-19 Vaccine ( - 2023-2 5 season) 2024 Influenza Adult (#1) 2024 Meningococcal B Vaccine Aged Out No l onger eligible based on patient's age to complete this topic Meningococcal Vaccine Aged Out No nic christine eligible based on patient's age to complete this topic RSV Immunizations Under 20 Months Aged Out No longer eligible based on patient's age to complete this topic Insurance [place] Care Teams Keno Writer / Runner Relationship Specialty Start Date End Date Morena Denny MD [address] [address] PCP - General INTERNAL MEDICINE 11/13/20
--- OUTSIDE RECORDS SUMMARY | 2025-01-27 14:24 | XMS_ITS | Encounter Summary ---
Author Organization [facility] Address 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
--- OUTSIDE RECORDS SUMMARY | 2025-01-27 14:24 | XMS_ITS | Encounter Summary ---
Author Organization [facility] Address [address] [place] [address] Phone Care Team Providers Care Manager Commercial Sales Name Role Phone No, Physician Primary Care Provider [phone] Demetrius Espitia MD Unavailable [phone] Henry Barton MD Unavailable [phone] Reason for Referral * Diagnostic Imaging (Routine) - Closed Specialty Diagnoses / Procedures Referred By Contac t Referred To Contact Diagnoses Pituitary adenoma (HCC) Procedures Velazquez Visual Field - OU - Both Eyes Velazquez Visual Field - OU - Both Eyes Herbert Sneed MD [address] [place] [address] Phone: tel: fax: [facility] Referral ID Status Reason Start Date Expiration Date Visits Re quested Visits Authorized [id number] Closed 11/24/2023 12/23/2024 1 1 IN HAULER Encounter Details Date Type Department Care Team (Late st Contact Info) Description 11/24/2023 Orders Only [facility] Neurosurgery [address] [facility] 6th [place] [address] [place] [address] Herbert Sneed MD [address] [place] [address] Pituitary adenoma (HCC) (Primary Dx) Social History Tobacco Use Types Packs/Day Years [...] on file Legal Sex Male 7:17 AM BOBBIN HAULER Gender Identity Not on file Sexual Orientation Not on file documented as of this encounter Plan of Treatment Scheduled Orders Name Type Priority Associated Diagnoses Orde r Schedule Velazquez Visual Field - OU - Both Eyes Ophthalmology Routine Pituitary adenoma (HCC) Ordered: 11/24/2023 documented as of this encounter Visit Diagnoses Diagnosis Pituitary adenoma (HCC)- Primary Benign neoplasm of pituitary gland and craniopharyngeal duct (pouch) documented in this encounter Care Teams Manager Commercial Sales Relationship Specialty Start Date End Date No, Physician PCP - General 07/26/23 Demetrius Espitia MD Radiation Oncologist Radiation Oncology 07/26/23 Henry Barton MD [address] [place] [address] Consulting Physician Urology 07/26/23 documented as of this encounter
--- OUTSIDE RECORDS SUMMARY | 2025-01-27 14:24 | XMS_ITS | Encounter Summary ---
Author Organization [facility] Address [address] [place] [address] Care Team Providers Care Museum Specialist Name Role Phone Juan Ha MD Primary Care Provider [phone] Encounter Details Date Type Department Care Team (Latest Contact Info) Description 11/27/2008 Outpatient Historical [facility] Juan Ramos MD NO ADDRESS ON FILE Follow-Up Examination, Following Other Surgery Social History Tobacco Use Types Packs/Day Years Used Date Smoking Tobacco: Never Assessed Sex and Gender Information Value Date Recorded Sex Assigned at Not on file Legal Sex Male 5:29 AM BODY LINER Gender Identity Not on file Sexual Orientation Not on file documented as of this encounter Plan of Treatment Not on file documented as of this encounter Procedures Procedure Name Priority Date/Time Associated Diagnosis Comments XR KNEE 1 OR 2 VW RIGHT Routine 11/27/2008 2:06 PM BODY LINER documented in this encounter Results * XR KNEE 1 OR 2 VW RIGHT (11/27/2008 2:06 PM BODY LINER) Anatomical Region Laterality Modality Lower Extremity Other 11/27/2008 2:06 PM BODY LINER Narrative 11/30/2008 9:42 PM BODY LINER [facility] [address] [place], [place] [address] Admit Date: 11/27/2008 DUANE TORRES Sex: M Admit Prov: JUAN RAMOS Date: 1945 Primary Care Prov: CMRN: [id number] Room: [facility] SSN: [id number] IMAGING SERVICES Ordering Prov: JUAN RAMOS Accession Number: [id number] Interpretation This procedure was performed at the request of the orthopedic physician. Please see the orthopedic physician s report for details, which can be found in the patient s medical record. Dictated by: RADIOLOGY, DEPARTMENT O Electronically signed by: RADIOLOGY, DEPARTMENT 11/30/2008 21:41 Transcribed: 11/29/2008 20:33 AMK Procedure Note Radiology, Radiologist - 11/30/2008 [facility] [address] [place], [place] [address] Admit Date: 11/27/2008 DUANE TORRES Sex: M Admit Prov: JUAN RAMOS Date:1945 Primary Care Prov: CMRN: [id number] Room: [facility] SSN: [id number] IMAGING SERVICES Ordering Prov: JUAN RAMOS Interpretation This procedure was performed at the request of the orthopedicphysician. Please see the orthopedic physician s report for details, which canbe found in the patient s medical record. Dictated by: RADIOLOGY, DEPARTMENT O Electronically signed by: RADIOLOGY, DEPARTMENT 11/30/2008 21:41 Transcribed: 11/29/2008 20:33 AMK Juan Ramos MD DIAGNOSTIC IMAGING ORDERABLES Fi nal Result documented in this encounter Visit Diagnoses Diagnosis Follow-up examination, following other surgery documented in this encounter Care Teams Museum Specialist Relationship Specialty Start Date End Date Juan Ha MD PCP - General Internal Medicine 08/12/11 documented as of this encounter
--- OUTSIDE RECORDS SUMMARY | 2025-01-27 14:24 | XMS_ITS | Encounter Summary ---
Author Organization [facility] Address [address] [place] [address] Care Team Providers Care Film Editor Name Role Phone Juan Ha MD Primary Care Provider [phone] Michelle Barbosa RN Unavailable Unavailable Juan Joshi I OD Unavailable [facility] Unavailab le Reason for Visit * Reason Onset Date Comments MEDICATION REFILL 08/14/2018 Encounter Details Date Type Department Care Team (Late st Contact Info) Description 08/14/2018 Refill [facility] General Internal Medicine [address] [place] [address] Juan Ha MD [address] [facility] [address] DIV OF [place] [address] MEDICATION REFILL Social History Tobacco Use Types Packs/Day Years Used Date Smoking Tobacco: Never Smokeless Tobacco: Never Alcohol Use Standard Drinks/Week Comments Yes 0 (1 standard drink = 0.6 oz pur e alcohol) Sex and Gender Information Value Date Recorded Sex Assigned at Not on file Gender Identity Not on file Sexual Orientation Not on file documented as of this encounter Miscellaneous Notes * Telephone Encounter - Jaja Ornelas RN - 08/14/2018 3:45 PM CDT Patient requesting refills for the following Ibudone medications. BRYANT: 05/24/18 NOV: 09/26/18 Problem List Identified: office visit on Medication attached per refill protocol/guidlines for further review by provider yes PCP / Resident PCP verified yes Allergies Reviewed yes Pharmacy Reviewed yes Medication details entered yes Office visit within the last six months yes if not within last 6 months route to GIM-scheduling as well. Office visit greater than 12 months no routed to GIM scheduling ONLY no. documented in this encounter Plan of Treatment Not on file documented as of this encounter Visit Diagnoses Diagnosis chronic pain- Primary Other chronic pain documented in this encounter Care Teams Film Editor Relationship Specialty Start Date End Date Juan Ha MD PCP - General 07/04/16 Michelle Barbosa custodial maintenance workerLuncheonette Manager 02/26/19 Juan Joshi I, DAPHNE [address] [facility] DE[place] [address] Foiling Machine Operator Low Conference Planning Manager 12/21/21 [facility], Sivan Jimenez [address] [place] [address] 12/21/21 documented as of this encounter
[2025-01-27] MEDS: CEPHALEXIN 500 MG CAPSULE PO (15:06)
--- OUTSIDE RECORDS SUMMARY | 2025-01-27 16:16 | XMS_ITS | Referral Summary ---
Author Organization [facility] Address [address] [place] [address] Care Team Providers Care Geography Teacher Name Role Phone Juan Ha MD Primary Care Provider [phone] Michelle Barbosa RN Unavailable Unavailable Juan Joshi I OD Unavailable [facility] Unavailab le Source Comments [facility],non-owned Affiliates and Associated Physician Practices is amultiple site organization consisting of ambulatory clinics and hospital sitesin [place], [place], [place] and [place]. This disclosure is being madepursuant to the Care Everywhere program and may not contain all information available regarding this patient. Last updated 18.[facility] Allergies Active Allergy Reactions Criticality Noted [...] neuropathy 09/18/2017 Overview (01/14/2019): Overview: Neurologist at [facility] Neurologist at [facility] Meniere's disease 01/20/2016 Venous insufficiency (chronic) (peripheral) 07/2016 Obstructive sleep apnea 07/23/2013 Fatty (change of) liver, not elsewhere classifie d 07/23/2013 Actinic keratosis 03/08/2012 Nevus, non-neoplastic 03/08/2012 Other seborrheic keratosis 03/08/2012 Benign lipomatous neoplasm 04/27/2009 Immunizations Name Administration Dates Next Due INFLUENZA VACCINE, TRIV. (AF LURIA, FLUZONE TRIVALENT; 6MO+) (IIV3) 08/13/2012 Covid [employer] primary monoval ent 12+ yr 0.3mL Purple cap 12/28/2020,12/06/2020 DT (AGE 0-7) 10/13/2002 FLU VACCINE QUAD IIV4 SPLIT 0.25 ML IM 09/12/2019 INFLUENZA A A0R0-89 VACCINE 10/26/2009 INFLUENZA VACCINE 10/16/2020, 8,08/03/2017,2010,10/04/2010,11/13/2006 INFLUENZA [...] Comments Blood Pressure 148/78 01/18/2022 1:00 PM [facility] Pulse 75 01/18/2022 1:00 PM [facility] Temperature 36.8 C (98.3 F) 01/18/2022 11:25 AM [facility] Respiratory Rate 6 01/18/2022 1:00 PM [facility] Oxygen Saturation 97% 01/18/2022 1:00 PM [facility] Inhaled Oxygen Concentration - - Weight 129.7 kg (286 lb) 01/18/2022 8:05 AM [facility] Height 200.7 cm (6' 7 ) 01/18/2022 8:05 AM [facility] Body Mass Index 32.22 01/18/2022 8:05 AM [facility] Plan of Treatment Not on file Medical Devices Implanted Type Area Cancer Program Consultant Device Identifier Shelf Expiration Date Model / Serial / Lot Mesh Srg Ventralight St Sepra 6x4in Implanted:Qty: 1 on 01/18/2022 by Demetrius Saini MD at [facility] N/A: [employer] 08/10/2023 [id number] / / [id number] Sys Fx 37cm Cpsr Str Ss Peek Perm Hndl Implanted:Qty: 1 on 01/18/2022 by Demetrius Saini MD at [facility] N/A: [employer] 09/09/2023 [id number] / / [id number] Procedures Procedure Name Priority Date/Time Associated Diagnosis Comments COMPREHENSIVE METABOLIC PANEL Routine 12/30/2021 9:33 AM [facility] Pure hypercholesterolemia MICROALB/CREAT RATIO URINE RANDOM PANEL Routine 01/07/2021 11:21 AM [facility] Type 2 diabetes mellitus without complication, without long-term current use of insulin (HCC) HEMOGLOBIN A1C Routine 01/07/2021 11:21 AM [facility] Type 2 diabetes mellitus without complication, without long-term current use of insulin (HCC) HEPATITIS C RIBA CONFIRMATION Routine 09/26/2011 5:03 PM [facility] from Last 3 Months or Most Recently Relevant to Health Maintenance Results * (ABNORMAL) COMPREHENSIVE METABOLIC PANEL (12/30/2021 9:33 AM [facility]) Glucose 258(H) 65 - 99 mg/dL [facility] [...] BLOOD SPECIMEN / Unknown 12/30/2021 9:33 AM [facility] 12/30/2021 Narrative Resulting Agency Comment Lab Testing performed at: [facility] [address] [id number] Juan Ha MD LAB - CHEMISTRY SWETHA CHAPPELL [facility] INSURANCE BILL [address] [place] [address] * MICROALB/CREAT RATIO URINE RANDOM PANEL (01/07/2021 11:21 AM [facility]) Creatinine Urine 171.4 Not Estab. mg/dL [facility] INSURANCE BILL Microalbumin Urine 17.1 Not Estab. ug/mL [facility] INSURANCE BILL Microalbumin/Crea tinine Ratio 10 0 - 29 mg/g creat [facility] INSURANCE BILL Comment: Normal: 0 - 29 Moderately increased: 30 - 300 Severely increased: >300 FASTING Urine URINE SPECIMEN OBTAINED BY CLEAN CATCH PROCEDURE / Unknown 01/07/2021 11:21 AM [facility] 01/07/2021 Narrative [facility] INSURANCE BILL - 01/08/2021 3:08 PM [facility] A courtesy copy of this report has been sent to the patient Resulting Agency Comment Lab Testing performed at: [address] [id number] Juan Ha MD LAB - URINE CHEMISTR Y ORDERABLES Performing Organization Address City/[facility]/ZIP Co de Phone Number [facility] INSURANCE BILL [address] [place] [address] * (ABNORMAL) HEMOGLOBIN A1C (01/07/2021 11:21 AM [facility]) Hemoglobin A1c 6.5(H) 4.8 - 5.6 % [facility] Comment: . Prediabetes: 5.7 - 6.4 Diabetes: >6.4 Glycemic control for adults with diabetes: <7.0 FASTING Blood BLOOD SPECIMEN / Unknown 01/07/2021 11:21 AM [facility] 01/07/2021 Narrative Resulting Agency Comment Lab Testing performed at: [address] [id number] Juan Ha MD LAB - CHEMISTRY ORDE RABLES Performing Organization Address [facility] de Phone Number [facility] INSURANCE BILL [address] [place] [address] * HEPATITIS C RIBA CONFIRMATION (09/26/2011 5:03 PM [facility]) Hepatitis C Antibody <0.1 0.0 - 0.9 s/co ratio [facility] (BEAKER) Comment: Negative Not infected with HCV, unless recent infection is suspected or other evidence exists to indicate HCV infection. 09/26/2011 5:03 PM [facility] 09/26/2011 10:05 PM [facility] Narrative [facility] (BEAKER) - 09/27/2011 7:28 AM [facility] Performed at: - [address] [id number] Stem Roller Or Crusher Operator: Laura Ibanez MD, Phone: [phone] Historical Provider LAB - SEROLOGY OR DERABLES [facility] RED) from Last 3 Months or Most Recently Relevant to Health Maintenance Care Teams Geography Teacher Relationship Specialty Start Date End Date Juan Ha MD PCP - General 07/04/16 Michelle Barbosa, trench trimmer fineAdministrative Office Manager 02/26/19 Juan Joshi OD [address] [place] [id number] Supervisor [employer] Checkers [employer] Cashiers Low Core Filer 12/21/21 [facility] [address] [place] [address] 12/21/21
--- OUTSIDE RECORDS SUMMARY | 2025-01-27 16:16 | XMS_ITS | Encounter Summary ---
Author Name [facility] Address [address] [place] [address] Care Team Providers Care Shoe Packer Name Role Phone SERGEI NORWOOD Primary Care Provider Unavailabl e Insurance Providers: All historical and current Section Date Range: From patient's date of to the date document was created. This section includes the names of all active insurance providers for the patient. Insurance Provider Type of Coverage Plan Name Start of Policy Coverage End of Policy Coverage Group Number Member ID Insurance Provider's Telephone Number Policy Mora's Name Patient's Relationship to Policy Mora MEDICARE (WNR) MEDICARE (M) PART B May 13, 2014 PART B [id number] NERIMatty FATIMAH PATIENT MEDICARE (WNR) MEDICARE (M) PART B May 13, 2014 PART B [id number] Matty NERI FATIMAH PATIENT MEDICARE (WNR) MEDICARE (M) PART A Aug 13, 2011 PART A [id number] NERIMatty FATIMAH PATIENT MEDICARE (WNR) MEDICARE (M) PART A Aug 13, 2011 PART A [id number] Matty NERIIEL PATIENT Selected Encounter This section includes the information on record at ID for the Encounter. Date/Time Encounter Type Encounter Description Reason Provider Source Aug 07, 2024 01:40 PM OFFICE O/P EST MOD 30 MIN ENDOCRINOLOGY ICD-10-CM E11.40 Type 2 diabetes mellitus with diabetic neuropathy, unsp ALFREDITO CHEN IHE Encounter Template Text not used by ID Assessments - Encounter Diagnoses This section includes the primary and secondary diagnoses documented for the Encounter. Date/Time Primary/Secondary Diagnosis Diagnosis Name Provider Source Aug 07, 2024 05:47 PM PRIMARY Type 2 diabetes mellitus with diabetic neuropathy, unsp MUEGGE,ALFREDITO [facility] Aug 07, 2024 05:47 PM SECONDARY Hyperlipidemia, unspecified MUEGGE,ALFREDITO [facility] Aug 07, 2024 05:47 PM SECONDARY Obesity, unspecified MUEGGE,[facility] Plan of Treatment: Future Appointments (+ 6 months) and Future Tests (+/- 45 days) The Plan of Treatment section includes future care activities for the patient [facility]. This section includes future appointments and future orders which are active, pending or scheduled. Future Appointments This section includes appointments that were scheduled to occur 6 months from the date of the Encounter, up to a maximum of 20 appointments. The data comes from all ID treatment facilities. Appointment Date/Time Appointment Type Appointme nt Facility Name Aug 08, 2024 01:00 PM AMBULATORY - NONE [facility] Aug 14, 2024 03:15 PM AMBULATORY - MEDICINE [facility] Aug 20, 2024 02:00 PM AMBULATORY - SURGERY [facility] Sep 03, 2024 10:45 AM AMBULATORY - MEDICINE [facility] Sep 09, 2024 10:00 AM AMBULATORY - NONE [facility] Sep 16, 2024 10:45 AM AMBULATORY - MEDICINE [facility] Sep 27, 2024 02:20 PM AMBULATORY - SURGERY [facility] Oct 14, 2024 01:00 PM AMBULATORY - SURGERY [facility] Oct 16, 2024 02:45 PM AMBULATORY - MEDICINE [facility] Oct 17, 2024 10:30 AM AMBULATORY - REHAB MEDICIN E [facility] Oct 25, 2024 02:00 PM AMBULATORY - SURGERY [facility] Nov 22, 2024 10:30 AM AMBULATORY - REHAB MEDICIN E [facility] Nov 25, 2024 11:00 AM AMBULATORY - REHAB MEDICIN E [facility] Jan 15, 2025 03:40 PM AMBULATORY - MEDICINE [facility] Jan 28, 2025 02:00 PM AMBULATORY - SURGERY [facility] Active, Pending, and Scheduled Orders This section includes a listing of several types of active, pending, and scheduled orders, including clinic medications orders, diagnostic test orders, procedure orders and consult orders; where the start date of the order is 45 days before the date of the Encounter or 45 days after the date of theEncounter. The data comes from all ID treatment facilities. Test Date/Time Test Type Test Details Facility Name Sep 02, 2024 12:00 AM Laboratory - Chemi stry Order URINE DRUG SCREEN (STL) URINE YELLOW SP [facility] Vital Signs: All taken on the encounter date This section contains inpatient and outpatient Vital Signs collected on the date of the Encounter. Date/Time Temperature Pulse Blood Pressure Respiratory Rate SP02 Pain Height Weight Body Mass Index Source Aug 07, 2024 01:30 PM 97.3 89 108/68 20 98 0 262.8 30 [facility] Social History: Smoking Status (Most current) and Tobacco Use (All prior to encounter date) This section includes the most current, and the historical, smoking and tobacco- related health factors from the ID facility where the Encounter took place. Current Smoking Status This section includes the most current smoking, or tobacco-related health factor, from the ID facility where the Encounter took place. Date/Time Current Smoking Status Comment Amol ity May 26, 2021 04:12 PM ORYX ADMIT TOBACCO SCREEN NO [facility] Encounter Notes: All associated encounter notes This section contains the clinical notes associated to the Encounter. Date/Time Encounter Note(s) Provider Source Aug 07, 2024 02:23 PM ENDOCRINOLOGY OUTP ATIENT NOTE: LOCAL TITLE: ENDOCRINOLOGY OUTPATIENT FOLLOW UP STL STANDARD TITLE: ENDOCRINOLOGY OUTPATIENT NOTE DATE OF NOTE: AUG 07, 2024@14:23 ENTRY DATE: AUG 07, 2024@14:23:08 AUTHOR: ALFREDITO CHEN EXP COSIGNER: URGENCY: STATUS: COMPLETED ID: HUYEN NERI is a 78yo MALE who returns for obesity, T2DM, and hypogonadism management History of present illness: Returns for f/u of light headedness. it has improved since he started to cut back on his opiates. Reviewed his medications. he takes cymbalta for fibromyalgia / muscle pains. He takes tizanidine to counteract muscle pains of pravastatin. he takes lyrica to help minimimze opiate use. overall pain levels have improved a lot since adding cymbalta. statin started many years ago for primary prevention. denies any history of CVA or CAD. Past Medical History: 1) Idiopathic peripheral autonomic neuropathy 2) Immune thrombocytopenia 3) Osteoarthritis of knee 4) History of tobacco use 5) Diabetes mellitus 6) Hyperlipidemia 7) Obstructive sleep apnea 8) Steatosis of liver 9) Chronic pain 10) Fibromyalgia 11) Otalgia 12) Decreased androgen level 13) Foot ulcer 14) Osteomyelitis 15) Hypertension 16) Long-term current use of opiate analgesic drug 17) Exposure to potentially hazardous substance 18) Basal cell carcinoma of forehead 19) Prostate Cancer ([facility] [id number]) Medications: Active Outpatient Medications (excluding Supplies): Issue Date Status Last Fill Active Outpatient Medications Refills Expiration 1) AMOXICILLIN 500MG CAP Qty: 21 for 7 ACTIVE Issu:07-08-24 days Sig: TAKE ONE CAPSULE BY MOUTH Refills: 0 Last:07-08-24 THREE TIMES A DAY TAKE UNTIL GONE Expr:08-07-24 UNLESS OTHERWISE DIRECTED. 2) CHOLECALCIF 50MCG (D3-2,000UNIT) TAB ACTIVE Issu:02-20-24 Qty: 200 for 90 days Sig: TAKE TWO Refills: 2 Last:07-16-24 TABLETS BY MOUTH ONCE A DAY FOR Expr:02-20-25 VITAMIN D DEFICIENCY 3) CLOBETASOL PROPIONATE 0.05% TOP SOLN ACTIVE Issu:03-29-24 Qty: 50 for 30 days Sig: APPLY Refills: 9 Last:05-10-24 LIGHTLY TO AFFECTED AREA(S) ONCE A DAY Expr:03-30-25 NEEDED SCALP ITCHING (EXTERNAL USE ONLY) 4) CYANOCOBALAMIN 1000MCG TAB Qty: 100 for ACTIVE Issu:11-28-23 90 days Sig: TAKE ONE TABLET BY MOUTH Refills: 2 Last:02-16-24 ONCE A DAY FOR B12 SUPPLEMENTATION Expr:11-28-24 5) DICLOFENAC NA 1% TOP GEL Qty: 200 for ACTIVE Issu:04-10-24 30 days Sig: APPLY 4 GM TO AFFECTED Refills: 11 Last:04-10-24 AREA(S) FOUR TIMES A DAY NEEDED FOR Expr:04-11-25 PAIN/INFLAMMATION; NOT MORE THAN 16 GRAMS DAILY TO ANY LOWER EXTREMITY JOINT. NOT MORE THAN 8 GRAMS DAILY TO ANY UPPER EXTREMITY JOINT. MAX 32GM/DAY OVER ALL JOINTS. (MEASURE DOSE WITH RULER ATTACHED INSIDE BOX) OVER HANDS AND SHOULDERS NEEDED FOR PAIN 6) DULOXETINE HCL 60MG EC CAP Qty: 90 for ACTIVE Issu:08-18-23 90 days Sig: TAKE ONE CAPSULE BY Refills: 0 Last:07-16-24 MOUTH ONCE A DAY DO NOT ABRUPTLY Expr:08-18-24 DISCONTINUE MEDICATION. 7) HYDROCODONE 7.5/ACETAMINOPHEN 325MG TAB ACTIVE Issu:07-24-24 Qty: 60 for 30 days Sig: TAKE 1 Refills: 0 Last:07-24-24 TABLET BY MOUTH TWICE DAILY NEEDED Expr:08-23-24 FOR PAIN CAUTION: DO NOT EXCEED 4000MG PER DAY ACETAMINOPHEN (APAP) FROM ALL MEDS. 8) IBUPROFEN 600MG TAB Qty: 28 for 7 days ACTIVE Issu:07-08-24 Sig: TAKE ONE TABLET BY MOUTH EVERY 6 Refills: 0 Last:07-08-24 HOURS NEEDED TAKE WITH FOOD. Expr:08-07-24 9) KETOCONAZOLE 2% SHAMPOO Qty: 120 for 30 ACTIVE Issu:03-29-24 days Sig: USE SHAMPOO TO AFFECTED Refills: 9 Last:05-10-24 AREA(S) ONCE A DAY NEEDED FOR Expr:03-30-25 DANDRUFF *LET SIT FOR 3-5 MINUTES ON SCALP, THEN RINSE* (EXTERNAL USE ONLY) (SHAKE WELL) 10) LIDOCAINE 5% PATCH Qty: 90 for 30 days ACTIVE Issu:03-06-24 Sig: APPLY 1-3 PATCHES TO SKIN SITE Refills: 10 Last:03-26-24 ONCE A DAY NEEDED FOR PAIN APPLY Expr:03-07-25 PATCH AND PRESS FIRMLY FOR 10-15 SECONDS. KEEP ON FOR 12 HOURS THEN REMOVE PATCH FOR 12 HOURS. 11) METFORMIN HCL 1000MG TAB Qty: 180 for ACTIVE Issu:07-16-24 90 days Sig: TAKE ONE TABLET BY MOUTH Refills: 3 Last:07-16-24 TWICE A DAY WITH MEALS FOR BLOOD SUGAR Expr:07-17-25 CONTROL. TAKE WITH FOOD. AVOID ALCOHOL. DISCONTINUE BEFORE GETTING XRAY DYE. 12) OXYCODONE HCL 5MG TAB Qty: 15 for 4 ACTIVE Issu:07-08-24 days Sig: TAKE ONE TABLET BY MOUTH Refills: 0 Last:07-08-24 EVERY 6 HOURS NEEDED MAY CAUSE Expr:08-07-24 CONSTIPATION 13) PETROLATUM (WHITE) OINT Qty: 390 for 30 ACTIVE Issu:03-29-24 days Sig: APPLY LIGHTLY TO AFFECTED Refills: 11 Last:03-29-24 AREA(S) TWICE A DAY FOR DRY SKIN Expr:03-30-25 14) POLYETHYLENE GLYCOL 3350 ORAL PWDR Qty: ACTIVE Issu:01-25-24 510 for 30 days Sig: MIX AND DRINK 1 Refills: 1 Last:07-16-24 CAPFUL BY MOUTH ONCE A DAY TO PREVENT Expr:01-25-25 CONSTIPATION. (MEASURE WITH CAP AND MIX IN 8 OZ OF WATER) 15) PRAVASTATIN NA 40MG TAB Qty: 45 for 90 ACTIVE Issu:04-03-24 days Sig: TAKE ONE-HALF TABLET BY Refills: 2 Last:07-16-24 MOUTH EVERY EVENING FOR HIGH Expr:04-04-25 CHOLESTEROL 16) PREGABALIN 75MG ORAL CAP Qty: 60 for 30 ACTIVE Issu:03-06- days Sig: TAKE ONE CAPSULE BY MOUTH Refills: 3 Last:07-16-24 TWICE A DAY *MAY CAUSE DROWSINESS* Expr:09-06-24 17) SALONPAS PAIN RELIEF PATCH Qty: 120 for ACTIVE Issu:07-23-24 30 days Sig: APPLY 1 PATCH TO SKIN Refills: 2 Last:07-24-24 SITE THREE TIMES A DAY NEEDED Expr:07-24-25 (EXTERNAL USE ONLY) 18) SEMAGLUTIDE 1MG/0.75ML INJ PEN 3ML Qty: ACTIVE Issu:03-20-24 1 for 28 days Sig: INJECT 1MG UNDER Refills: 4 Last:07-22-24 THE SKIN EVERY WEEK Expr:03-21-25 19) TAMSULOSIN HCL 0.4MG CAP Qty: 90 for 90 ACTIVE Issu:05-15-24 days Sig: TAKE ONE CAPSULE BY MOUTH Refills: 3 Last:05-16-24 EVERY EVENING APPROXIMATELY 30 MINUTES Expr:05-16-25 AFTER THE SAME MEAL EACH DAY (FOR PROSTATE) 20) TIZANIDINE HCL 4MG TAB Qty: 30 for 30 ACTIVE Issu:12-29-23 days Sig: TAKE ONE-HALF TABLET BY Refills: 7 Last:07-16-24 MOUTH TWICE DAILY NEEDED FOR Expr:12-29-24 SPASTICITY Start Date Active Non-VA Medications Refills Expiration 1) Non-VA CIPROFLOXACIN 0.3/DEXAM 0.1% OTIC ACTIVE SUSP Si DROPS TO AFFECTED EAR(S) TWICE A DAY 21 Total Medications Physical Exam: Vital Signs: Temperature: 97.3 F [36.3 C] (08/07/2024 13:30) Blood Pressure: 108/68 (08/07/2024 13:30) Pulse: 89 (08/07/2024 13:30) Respirations: 20 (08/07/2024 13:30) Patient Weight History - Last Four 1. 262.8 lbs. / 119.2 kg. on AUG 07, 2024@13:30:31 2. 268.0 lbs. / 121.6 kg. on JUN 19, 2024@13:51:44 3. 249.9 lbs. / 113.4 kg. on APR 29, 2024@10:58:59 4. 273.5 lbs. / 124.1 kg. on JAN 24, 2024@15:21:08 CON: Well developed, well nourished, no acute distress SKIN: Normal turgor, normal texture, no rashes or lesions HENT: MMM, nasal septum intact EYES: EOMI, PERRL, Anicteric Sclerae NECK: Supple, no cervical LAD. No thyromegaly CV: RRR, no murmur, no edema RESP: CTAB, chest rise symmetric GI: s, nt,nd. No masses palpated MSK: muscle bulk normal, no cyanosis or clubbing NEURO: strength B WNL, nonfocal. No fine tremor PSYCH: pleasant, appropriate LABS: Comprehensive Metabolic Panel Results: SODIUM 139 mEq/L 06/21/2024 10:40 POTASSIUM 4.6 mEq/L 06/21/2024 10:40 CHLORIDE 106 mEq/L 06/21/2024 10:40 UREA NITROGEN 15.3 mg/dL 06/21/2024 10:40 CREATININE 1.03 mg/dL 06/21/2024 10:40 CALCIUM 9.7 mg/dL 06/21/2024 10:40 PROTEIN 7.1 g/dL 06/21/2024 10:40 ALBUMIN 4.3 g/dL 06/21/2024 10:40 ALKALINE PHOSPHATASE 65 U/L 06/21/2024 10:40 ALT/SGPT 22 U/L 06/21/2024 10:40 AST/SGOT 18 U/L 06/21/2024 10:40 TOTAL BILIRUBIN 1.0 mg/dL 06/21/2024 10:40 CARBON DIOXIDE 24 mEq/L 06/21/2024 10:40 GLUCOSE 244 H mg/dL 06/21/2024 10:40 EGFR (CKD-EPI 2020) 74.8 06/21/2024 10:40 CREATININE 1.03 mg/dL 06/21/2024 10:40 EGFR (CKD-EPI 2020) 74.8 06/21/2024 10:40 PSA =PROST. SPECIFIC AG.(PB-STL) 0.323 ng/mL 02/28/2024 13:06 HGA1C 6.4 H % 06/21/2024 10:40 HGA1C 6.6 H % 02/28/2024 13:06 HGA1C 7.4 H % 11/28/2023 09:22 HGA1C 6.8 H % 05/24/2023 11:09 HGA1C 7.4 H % 02/10/2023 08:30 No MICRAL/CREAT RATIO (STL) data found Lipid Panel: TRIGLYCERIDE 157 H mg/dL 05/17/2024 10:41 CHOLESTEROL 131 mg/dL 05/17/2024 10:41 HDL(New) 36 L mg/dL 05/17/2024 10:41 CALCULATED LDL 64 mg/dL 05/17/2024 10:41 Assessment and plan: HUYEN NERI is a 78yo here for f/u of obesity, T2DM, hypogonadism #hypogonadism -Labs suggestive of primary hypogonadism -stopped Androgel in 2022 due to prostate carcinoma -s/p radiation treatment, will f/u with urology to determine if trt can be resumed #T2DM #Obesity - continue metformin 1000 PO BID - continue Ozempic 1 mg weekly - A1c excellent on above #HLD - statins cause muscle aches, and he has to take tizanidine to balance the muscle cramps - at this point he is beyond age based guidelines for statins - he is on a low dose statin and LDL is excellent, especially with weight loss - in shared decision making, stop statin. See if muscle aches improve. If they do, he can discuss with pain management if tizanidine can also be stopped to see if that's contributing to his dizziness - lipid panel 10/17 at scheduled visit to [facility] to assess fasting lipids off statin RTC 6 months /es/ Alfredito Chen MD,PhD Staff Physician, Endocrinology Signed: 08/07/2024 17:47 ALFREDITO CHEN [facility]
--- OUTSIDE RECORDS SUMMARY | 2025-01-27 16:16 | XMS_ITS | Encounter Summary ---
Author Name [facility] [place] [facility] [place] [facility] [place] Address [address] [place] [address] Care Team Providers Care Food Supervisor Name Role Phone SERGEI NORWOOD Primary Care [...] PART B May 13, 2014 PART B [id number] NERIMatty FATIMAH PATIENT MEDICARE (WNR) MEDICARE (M) PART B May 13, 2014 PART B [id number] Matty NERI FATIMAH PATIENT MEDICARE (WNR) MEDICARE (M) PART A Aug 13, 2011 PART A [id number] Matty NERI FATIMAH PATIENT MEDICARE (WNR) MEDICARE (M) PART A Aug 13, 2011 PART A [id number] Matty NERIIEL PATIENT Selected Encounter This section includes the information on record at [place] for the Encounter. Date/Time Encounter Type Encounter Description Reason Provider Source Oct 25, 2024 02:00 PM OFFICE O/P EST LOW 20 MIN PODIATRY ICD-10-CM L60.3 Nail dystrophy ANGELICA VERA IHE Encounter Template Text not used by [place] Assessments - Encounter Diagnoses This section includes the primary and secondary diagnoses documented for the Encounter. Date/Time Primary/Secondary Diagnosis Diagnosis Name Provider Source Oct 27, 2024 01:16 PM PRIMARY Nail dystrophy ANGELICA VERA [facility] Oct 27, 2024 01:16 PM SECONDARY Other acquired deformities of unspecified foot ANGELICA VERA [facility] Oct 27, 2024 01:16 PM SECONDARY Type 2 diabetes mellitus with diabetic neuropathy, unsp JODYANGELICA L [facility] Plan of Treatment: Future Appointments (+ 6 months) and Future Tests (+/- 45 days) The Plan of Treatment section includes future care activities for the patient from all [place] treatmentfacilities. This section includes future appointments and future orders which are active, pending or scheduled. Future Appointments This section includes appointments that were scheduled to occur 6 months from the date of the Encounter, up to a maximum of 20 appointments. The data comes from all [place] treatment facilities. Appointment Date/Time Appointment Type Appointme nt Facility Name Nov 22, 2024 10:30 AM [facility]ATORY - [facility] Nov 25, 2024 11:00 AM [facility]ORY [facility] Jan 15, 2025 03:40 PM AM[facility]ULATORY - MEDICINE [facility] Jan 28, 2025 02:00 PM AMBULATORY - SURGERY [facility] Feb 05, 2025 03:00 PM [facility]ATORY [facility] Feb 12, 2025 01:45 PM [facility]ULATORY - [facility] Feb 13, 2025 01:00 PM AMBULATORY - SURGERY [facility] Mar 05, 2025 11:15 AM [facility]ORY [facility] March 26, 2025 11:20 AM AM[facility]ULATORY - SURGERY [facility] Apr 18, 2025 10:45 AM AMBULATORY - MEDICINE [facility] Active, Pending, and Scheduled Orders This section includes a listing of several types of active, pending, and scheduled orders, including clinic medications orders, diagnostic test orders, procedure orders and consult orders; where the start date of the order is 45 days before the date of the Encounter or 45 days after the date of theEncounter. The data comes from all [place] treatment facilities. Test Date/Time Test Type Test Details Facility Name Oct 17, 2024 12:00 AM Laboratory - Chemi stry Order LIPID PANEL (STL) GREEN LI/HEP BLD/PLAS PLASMA SP [facility] Lab Results: +/- 30 days of the encounter This section includes the Chemistry and Hematology Lab Results on record with [place] for the patient. Radiology Reports and Pathology Reports are provided separately, in subsequent sections. Lab Results This section contains the Chemistry/Hematology Results that were resulted 30 days before or 30 daysafter the date of the Encounter. Date/Time Source Result Type Result - Unit Interpretation Reference Range Comment Sep 27, 2024 03:15 PM [facility] URINE DRUG SCREEN (STL) Specimen Type: URINE Comment: The cut-off value for Fentanyl was laboratory developed and its performance characteristics confirmed by the [facility] laboratory thru method comparison with reference laboratory and medication chart review. The laboratory is regulated under CLIA as qualified to perform high-complexity testing. Fentanyl is used for clinical purposes in conjunction with other laboratory tests. Ordering Provider: SCOTTIE BULLOCK Report Released Date/Time: Sep 26, 2024 09:24 AM Reporting Lab: [address] [id number] Performing Lab: [address] [id number] ETHANOL Negative mg/dL 0-20 AMPHET/METHAMPHE TAMINE Negative ng/mL COCAINE METABOLITES Negative ng/mL BENZODIAZEPINES (STL) Negative ng/mL CANNABINOIDS Negative ng/mL METHADONE Negative ng/mL OPIATES POSITIVE ng/mL CREATININE URINE/OTHERS 115.1 mg/dL 63-166 OXYCODONE (DUSKR-RML-NY) Negative ng/mL BUPRENORPHINE (STL-PB-MA) Negative ng/mL FENTANYL (STL-PB) Negative ng/mL Sep 27, 2024 03:[address] [facility] PROST. SPECIFIC AG.(PB-STL) Specimen Type: SERUM Comment: The listed sex of this patient may not be a typical indication for this test. Therefore, reference ranges or interpretive criteria listed may not be valid. Clinical correlation suggested. Ordering Provider: HARIS MCMULLEN Report Released Date/Time: Sep 27, 2024 02:58 PM Reporting Lab: [facility] [address] [facility] [id number] Performing Lab: [facility] [address] [facility] [facility] [id number] PROST. SPECIFIC AG.(PB-STL) 0.118 ng/mL 0-4 Social History: Smoking Status (Most current) and Tobacco Use (All prior to encounter date) This section includes the most current, and the historical, smoking and tobacco- related health factors from the [place] facility where the Encounter took place. Current Smoking Status This section includes the most current smoking, or tobacco-related health factor, from the [place] facility where the Encounter took place. Date/Time Current Smoking Status Comment Amol alston Apr 29, 2024 11:00 AM [place]-TOBACCO QUIT 15 YRS OR MORE [facility] Tobacco Use History This section includes a history of the smoking, or tobacco-related health factors, that were collected on or before the date of the Encounter. The data comes from the [place] facility where the Encounter took place. Date/Time Smoking Status/Tobacco Use Comment F viki Apr 29, 2024 11:00 AM [place]-TOBACCO QUIT 15 YRS OR MORE [facility] Encounter Notes: All associated encounter notes This section contains the clinical notes associated to the Encounter. Date/Time Encounter Note(s) Provider Source Oct 25, 2024 04:54 AM PODIATRY NOTE: LOCAL TITLE: PODIATRY NOTE STANDARD TITLE: PODIATRY NOTE DATE OF NOTE: OCT 25, 2024@04:54 ENTRY DATE: OCT 25, 2024@04:54:31 AUTHOR: ANGELICA VERA COSIGNER: URGENCY: STATUS: COMPLETED Last clinic appt on August 20, 2024 SUBJECTIVE: This 79 year old noninsulin dependent male patient with history of neuropathic pain to the feet presents for nail palliation. diagnosed with prostate cancer and underwent radiation treatment. The pt is requesting footwear, ie black socks. Pt last blood sugar was unknown mg/dl , No recent serum test in [facility]. The patient's PCP is following the patient for his diabetes. Pt states numbness, and/or burning sensation to the feet. Pt denies rest pain or claudication. Pt denies any other recent injuries to the feet. Pt history of ulceration and slow healing wounds with osteo to the hallux right foot. Pt relates no other foot complaints at this time. 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. Patient denies smoking. Patient drinks alcohol: denies Patient uses recreational drugs: denies Family history of diabetes: denies PSH: knee, implant left and planning for the right knee. 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% S/C NEOPLASM, MALIGNANT, GENITOURINARY 100% S/C PARALYSIS OF ANTERIOR CRURAL NERVE 20% S/C TINNITUS 10% S/C PARALYSIS OF MUSCULOSPIRAL NERVE 30% S/C PARALYSIS OF SCIATIC NERVE 40% S/C DIABETES MELLITUS 20% S/C PARALYSIS OF MUSCULOSPIRAL NERVE 20% S/C PARALYSIS OF ANTERIOR CRURAL NERVE 30% S/C IMPAIRED HEARING 0% S/C SIMVASTATIN, ATORVASTATIN, ROSUVASTATIN 1) Idiopathic peripheral autonomic neuropathy 2) Immune thrombocytopenia 3) Osteoarthritis of knee 4) History of tobacco use 5) Diabetes mellitus 6) Hyperlipidemia 7) Obstructive sleep apnea 8) Steatosis of liver 9) Chronic pain 10) Fibromyalgia 11) Otalgia 12) Elevated PSA 13) Decreased androgen level 14) Foot ulcer 15) Osteomyelitis 16) Hypertension 17) Long-term current use of opiate analgesic drug 79 in [200.7 cm] (06/19/2024 13:51) 262.8 lb [119.20 kg] (08/07/2024 13:30) Active Outpatient Medications (including Supplies): Active Outpatient Medications Status 1) ALOGLIPTIN 25MG TAB TAKE ONE TABLET BY MOUTH ONCE A ACTIVE (S) DAY TO LOWER BLOOD SUGAR 2) CHOLECALCIF 50MCG (D3-2,000UNIT) TAB TAKE ONE TABLET ACTIVE BY MOUTH ONCE A DAY FOR VITAMIN D DEFICIENCY. 3) CYANOCOBALAMIN 1000MCG TAB TAKE ONE TABLET BY MOUTH ACTIVE ONCE A DAY FOR B12 SUPPLEMENTATION 4) DICLOFENAC NA 1% TOP GEL APPLY 2 GM TO AFFECTED ACTIVE AREA(S) FOUR TIMES A DAY NEEDED FOR PAIN/INFLAMMATION; NOT MORE THAN 16 GRAMS DAILY TO ANY LOWER EXTREMITY JOINT. NOT MORE THAN 8 GRAMS DAILY TO ANY UPPER EXTREMITY JOINT. MAX 32GM/DAY OVER ALL JOINTS. (MEASURE DOSE WITH RULER ATTACHED INSIDE BOX) OVER HANDS AND SHOULDERS NEEDED FOR PAIN 5) DULOXETINE HCL 60MG EC CAP TAKE ONE CAPSULE BY MOUTH ACTIVE ONCE A DAY DO NOT ABRUPTLY DISCONTINUE MEDICATION. 6) HCTZ 50/TRIAMTERENE 75MG TAB TAKE ONE-HALF TABLET BY ACTIVE MOUTH EVERY MORNING FOR BLOOD PRESSURE 7) HYDROCODONE 7.5/ACETAMINOPHEN 325MG TAB TAKE 1 TABLET ACTIVE BY MOUTH THREE TIMES A DAY NEEDED FOR PAIN. CAUTION: DO NOT EXCEED 4000MG PER DAY ACETAMINOPHEN (APAP) FROM ALL MEDS. 8) LIDOCAINE 5% OINT APPLY LIGHTLY TO AFFECTED AREA(S) ACTIVE THREE TIMES A DAY NEEDED 9) POLYETHYLENE GLYCOL 3350 ORAL PWDR MIX AND DRINK 1 ACTIVE (S) CAPFUL BY MOUTH ONCE A DAY TO PREVENT CONSTIPATION. (MEASURE WITH CAP AND MIX IN 8 OZ OF WATER) 10) PRAVASTATIN NA 40MG TAB TAKE ONE-HALF TABLET BY MOUTH ACTIVE EVERY EVENING TO LOWER CHOLESTEROL 11) SILDENAFIL CITRATE 100MG TAB TAKE ONE TABLET BY MOUTH ACTIVE (S) EVERY WEEK NEEDED FOR ERECTILE DYSFUNCTION (TAKE 60 MINUTES PRIOR TO SEXUAL ACTIVITY) - LIMIT 4 DOSES PER 30 DAYS 12) TABLET CUTTER USE TABLET CUTTER NEEDED FOR ACTIVE SPLITTING TABLETS 13) TAMSULOSIN HCL 0.4MG CAP TAKE ONE CAPSULE BY MOUTH ACTIVE (S) EVERY EVENING APPROXIMATELY 30 MINUTES AFTER THE SAME MEAL EACH DAY (FOR PROSTATE) 14) TAPE,MEDIPORE H SOFT 2IN X 10YD 3M#8150 USE/APPLY 1 ACTIVE ROLL TO AFFECTED AREA(S) ONCE A DAY (EXTERNAL USE ONLY) 15) TESTOSTERONE 1.62% 20.25MG/PUMP TOP GEL APPLY 3 PUMPS ACTIVE (60.75MG) TO AFFECTED AREA(S) ONCE A DAY (APPLY TO CLEAN DRY SKIN OF UPPER ARMS OR UPPER SHOULDER ONLY) FOR HORMONE SUPPLEMENTATION. Active Non-VA Medications Status 1) Non-VA CIPROFLOXACIN 0.3/DEXAM 0.1% OTIC SUSP 4 DROPS ACTIVE TO AFFECTED EAR(S) TWICE A DAY 262.7 lb [119.16 kg] (09/27/2024 14:23) Objective: Pt presents ambulating in leather every day footwear without assistance and oriented x 3. Few changes to the following objective findings from the Last clinic appt on Aug 20, 2024 Vasc: DP and PT pulses are palpable 1/4 b/l. CFT < 4 seconds b/l Hair growth is diminished on the digits, b/l feet. There is mild, moderate ankle edema present, b/l extremities. Neuro: Protective sensation is absent at all sites tested with Verdon Mack 5.07 monofilament to both feet. This is particularly true with the plantar aspect of the feet. Neg tinel to the posterior tibial nerve, b/l feet. Derm: neg varicosities dorsum of foot b/l. Pt presents with onychomycosis x 4, b/l feet as indicated with dystrophic , thick, nail debris, yellowing and lysis. Dystrophic nails remainint digits. No evidence of infection, i.e. no erythema, no drainage, no edema, no cellulitis, no odor. to the nail beds Web spaces are clean and dry. There are no open lesions. No evidence of ulcerations or breaks in the skin. Negative evidence for infection, i.e., no erythema, no drainage, no edema, no cellulitis, no odor. Inflamed keratosis: distal hallux and second toe distally , right foot; and keratosis left hallux distal medial nail groove, distal plantar, second toe, keratosis, distal medial nail border to the hallu,left foot. grade 0 malperforans ulcer, distal plantar, second toe, Ortho: 1st MPJ ROM diminished < 30 degrees, left > right There is no pain or crepitus noted to the joint. Inversion and eversion ROM to the foot is within normal limits without pain or crepitus. Ankle joint ROM is normal b/l. There is no pain with deep massage to anatomical structures to the left foot or the right foot. Manual muscle testing in all biomechanical planes, i.e. supination, pronation, dorsiflexion, plantarflexion, abduction and adduction, are normal, i.e. 5/5, b/l feet. pes cavus, b/l feet hallux limitus, b/l feet hammer toe hallux malleous, right foot, and larger than the left hallux. Neg ankle equinus, b/l feet hammer toes: 2-5, b/l feet Stance/gait: with pronation ASSESSMENT: Noninsulin dependent diabetes mellitus, with neuropathy keratosis left hallux distal medial nail groove dystrophic nails pes cavus hallux limitus, b/l feet hammer toe hallux malleous, right foot foot deformities grade 0 malperforans ulcer, distal plantar, second toe, mark's long second toe, to the left foot with hammering. PLAN: Exam debride nails x 10, without incident FOOT RISK SCORE: high foot risk per the A directive 1122 discussed in detail -- foot hygiene moistorizer cream apply to the feet The patient agreed with the plan and voiced understanding with the discussion and plan. Discussed diabetic foot care in general. Pt relates verbal understanding. Pt encouraged to check feet daily. Pt given clinic phone numbers. PROSTHETICS: black socks Pt rtc in two months Patient instructed to go to [facility], or contact their PCP with new pedal complaints, and if there are concerns or questions. Example includes infection. The pt voiced understanding of infection such as red, hot, swollen and streaking foot that may baccompanied with or without f/c/n/v/d/m/chest pain/sob/leg pain. /fransisco/ ANGELICA VERA D.P.M. Staff Physician - Podiatry Signed: 10/27/2024 13:24 ANGELICA VERA [facility]
--- OUTSIDE RECORDS SUMMARY | 2025-01-27 16:16 | XMS_ITS | Encounter Summary ---
Author Name [facility] [place] [facility] [place] [facility] [place] Address [address] [place] [address] Care Team Providers Care Audiovisual Production Specialist Name Role Phone JONEL NORWOOD Primary Care Provider Unavailabl e Insurance [...] PART B May 13, 2014 PART B [id number] TORRESMatty FATIMAH PATIENT MEDICARE (WNR) MEDICARE (M) PART B May 13, 2014 PART B [id number] Matty TORRES FATIMAH PATIENT MEDICARE (WNR) MEDICARE (M) PART A Aug 13, 2011 PART A [id number] Matty TORRES FATIMAH PATIENT MEDICARE (WNR) MEDICARE (M) PART A Aug 13, 2011 PART A [id number] Matty TORRESIEL PATIENT Selected Encounter This section includes the information on record at [place] for the Encounter. Date/Time Encounter Type Encounter Description Reason Provider Source Nov 25, 2024 11:00 AM OFFICE O/P EST HI 40 MIN GERIPACT ICD-10-CM E11.40 Type 2 diabetes mellitus with diabetic neuropathy, unsp JONEL NORWOOD IHE Encounter Template Text not used by [place] Assessments - Encounter Diagnoses This section includes the primary and secondary diagnoses documented for the Encounter. Date/Time Primary/Secondary Diagnosis Diagnosis Name Provider Source Nov 25, 2024 02:03 PM PRIMARY Type 2 diabetes mellitus with diabetic neuropathy, unsp JONEL NORWOOD [facility] Nov 25, 2024 02:03 PM SECONDARY Chronic pain syndrome JONEL NORWOOD [facility] Nov 25, 2024 02:03 PM SECONDARY Encounter for immunization MYAJOANNA Marlow [facility] Nov 25, 2024 02:03 PM SECONDARY Essential (primary) hypertension JONEL NORWOOD [facility] Nov 25, 2024 02:03 PM SECONDARY Fibromyalgia JONEL NORWOOD [facility] Nov 25, 2024 02:03 PM SECONDARY Malignant neoplasm of prostate JONEL NORWOOD [facility] Plan of Treatment: Future Appointments (+ 6 months) and Future Tests (+/- 45 days) The Plan of Treatment section includes future care activities for the [facility] [place] [facility] This section includes future appointments and future orders which are active, pending or scheduled. Future Appointments This section includes appointments that were scheduled to occur 6 months from the date of the Encounter, up to a maximum of 20 appointments. The data comes from all [place] treatment facilities. Appointment Date/Time Appointment Type Appointme nt Facility Name Jan 15, 2025 03:40 PM AMBULATORY - MEDICINE [facility] Jan 28, 2025 02:00 PM AMBULATORY - SURGERY [facility] Feb 05, 2025 03:00 PM AMBULATORY - MEDICINE [facility] Feb 12, 2025 01:45 PM AMBULATORY - MEDICINE [facility] Feb 13, 2025 01:00 PM AMBULATORY - SURGERY [facility] Mar 05, 2025 11:15 AM AMBULATORY - REHAB MEDICIN E [facility] March 26, 2025 11:20 AM AMBULATORY - SURGERY [facility] Apr 18, 2025 10:45 AM AMBULATORY - MEDICINE [facility] May 07, 2025 02:00 PM AMBULATORY - REHAB MEDICIN E [facility] Active, Pending, and Scheduled Orders This section includes a listing of several types of active, pending, and scheduled orders, including clinic medications orders, diagnostic test orders, procedure orders and consult orders; where the start date of the order is 45 days before the date of the Encounter or 45 days after the date of theEncounter. The data comes from all [place] treatment facilities. Test Date/Time Test Type Test Details Facility Name Oct 17, 2024 12:00 AM Laboratory - Chemi stry Order LIPID PANEL (STL) GREEN LI/HEP BLD/PLAS PLASMA SP [facility] Lab Results: +/- 30 days of the encounter This section includes the Chemistry and Hematology Lab Results on record with [place] for the patient. Radiology Reports and Pathology Reports are provided separately, in subsequent sections. Lab Results This section contains the Chemistry/Hematology Results that were resulted 30 days before or 30 daysafter the date of the Encounter. Date/Time Source Result Type Result - Unit Interpretation Reference Range Comment Dec 11, 2024 11:38 AM [facility] MICRAL/CREAT PROFILE (STL) Specimen Type: URINE No comment entered. Ordering Provider: JONEL NORWOOD Report Released Date/Time: Nov 04, 2024 02:10 PM Reporting Lab: [address] [address] Performing Lab: [address] [address] URINE ALBUMIN (PB-STL) 20.2 mg/L uACR (STL) 11 mg/g 0-29 CREATININE URINE/OTHERS 183.4 mg/dL H 63-166 Dec 11, 2024 11:26 AM [facility] PROST. SPECIFIC AG.(PB-STL) Specimen Type: SERUM Comment: The listed sex of this patient may not be a typical indication for this test. Therefore, reference ranges or interpretive criteria listed may not be valid. Clinical correlation suggested. Ordering Provider: JONEL NORWOOD Report Released Date/Time: Nov 25, 2024 11:58 AM Reporting Lab: [address] [address] Performing Lab: [address] [address] PROST. SPECIFIC AG.(PB-STL) 0.145 ng/mL 0-4 Dec 11, 2024 11:26 AM [facility] HGA1C Specimen Type: BLOOD No comment entered. Ordering Provider: JONEL NORWOOD Report Released Date/Time: Nov 25, 2024 12:09 PM Reporting Lab: [address] [address] Performing Lab: [address] [address] HGA1C 5.9 4.0-6.0 Dec 11, 2024 11:26 AM [facility] CBC Specimen Type: BLOOD No comment entered. Ordering Provider: JONEL NORWOOD Report Released Date/Time: Nov 25, 2024 11:58 AM Reporting Lab: [address] [address] Performing Lab: [address] [address] WBC 9.4 10*3/uL 3.6-11.2 RBC 4.55 10*6/uL 4.10-5.70 HGB 13.7 g/dL 13.1-16.8 HCT 41.1 38.2-48.4 MCV 90.3 fL 80.0-100.0 MCH 30.1 pg 27.0-34.0 MCHC 33.3 g/dL 33.0-36.0 PLT 120 10*3/uL L 150-400 MPV 11.5 fL H 7.5-11.2 RDW 13.9 11.8-15.1 LYMPHOCYTES, AUTO % 17 MONOCYTES, AUTO % 5 NEUTROPHILS, AUTO % 68 EOSINOPHILS, AUTO % 9 BASOPHILS, AUTO % 1 LYMPHOCYTES, ABSOLUTE 1.58 10*3/uL 0.77-4.50 MONOCYTES, ABSOLUTE 0.48 10*3/uL 0.19-0.80 NEUTROPHILS, ABSOLUTE 6.38 10*3/uL 2.10-8.00 EOSINOPHILS, ABSOLUTE 0.88 10*3/uL H 0.00-0.60 BASOPHILS, ABSOLUTE 0.05 10*3/uL 0.00-0.20 IMMATURE PLT FRACTION 5.8 1.0-7.0 Vital Signs: All taken on the encounter date This section contains inpatient and outpatient Vital Signs collected on the date of the Encounter. Date/Time Temperature Pulse Blood Pressure Respiratory Rate SP02 Pain Height Weight Body Mass Index Source Nov 25, 2024 10:55 AM 97.4 76 128/76 16 99 2 79 266.6 30 [facility] Immunizations: All administered on the encounter date This section contains immunizations associated to the Encounter. Immunization Series Date Issued Reaction Comments INFLUENZA, HIGH-DOSE, TRIVALENT, PF Nov 25 Social History: Smoking Status (Most current) and Tobacco Use (All prior to encounter date) This section includes the most current, and the historical, smoking and tobacco- related health factors from the [place] facility where the Encounter took place. Current Smoking Status This section includes the most current smoking, or tobacco-related health factor, from the [place] facility where the Encounter took place. Date/Time Current Smoking Status Comment Amol alston Apr 29, 2024 11:00 AM [place]-TOBACCO FORMER USER [facility] Tobacco Use History This section includes a history of the smoking, or tobacco-related health factors, that were collected on or before the date of the Encounter. The data comes from the [place] facility where the Encounter took place. Date/Time Smoking Status/Tobacco Use Comment F viki Apr 29, 2024 11:00 AM [place]-TOBACCO QUIT 15 YRS OR MORE [facility] Encounter Notes: All associated encounter notes This section contains the clinical notes associated to the Encounter. Date/Time Encounter Note(s) Provider Source Dec 11, 2024 01:37 PM PHYSICIAN LETTERS: LOCAL TITLE: TEST RESULT GENERAL LETTER STL STANDARD TITLE: PHYSICIAN LETTERS DATE OF NOTE: DEC 11, 2024@13:37 ENTRY DATE: DEC 11, 2024@13:37:25 AUTHOR: JONEL NORWOOD EXP COSIGNER: URGENCY: STATUS: COMPLETED [facility] [address] [place] [address] DEC 11, 2024 DUANE TORRES [id number] [place], [place] [address] Dear Duane Torres, I would like to update you on your recent test results. HEMOGLOBIN A1C - Gives us information about your diabetes (sugar or glucose) control over the past 3 months. Your target is to keep your A1C below 0 %. HGA1C 5.9 % 12/11/2024 11:26 These readings are within normal limits. CBC - A complete blood count (CBC) gives important information about the kinds and numbers of cells in the blood, especially red blood cells, white blood cells, and platelets. HGB 13.7 g/dL 12/11/2024 11:26 HEMATOCRIT 41.1 % (12/11/24 11:26) PLT 120 L 10*3/uL 12/11/2024 11:26 WHITE BLOOD COUNT 9.4 10*3/uL (12/11/24 11:26) The results are similar to previous values and not a clinical concern. PSA - Prostate-specific antigen is a protein produced by cells of the prostate gland. The PSA test measures the level of PSA in the blood. PSA PROST. SPECIFIC AG.(PB-STL) 0.145 ng/mL 12/11/2024 11:26 These readings are within normal limits. FUTURE APPOINTMENTS: 12/18/2024 13:20 DOUG-ENDOCRINOLOGY MUEGGE 12/26/2024 12:00 PRO-PODIATRY JODY 02/05/2025 15:00 DOUG-ENDOCRINOLOGY MUEGGE 02/12/2025 13:45 [facility] 02/13/2025 13:00 PRO-OPTOMETRY 1 03/26/2025 11:20 DOUG-UROLOGY MD RES 04/18/2025 10:45 [facility] 05/06/2025 11:00 PRO-PACT BHARATI TM 1 PCP 10/13/2025 13:00 PRO-OPTOMETRY CONTACT LENS 10/23/2025 10:30 PRO-PAIN MGMT TEAM P1 Sincerely, JONEL NORWOOD MD STAFF PHYSICIAN ECRDUANE CHOPRA HORACE M [facility] Nov 25, 2024 12:10 PM GERIATRIC MEDICINE NOTE: LOCAL TITLE: GERIATRIC PACT CLINIC [facility] STANDARD TITLE: GERIATRIC MEDICINE NOTE DATE OF NOTE: NOV 25, 2024@12:10 ENTRY DATE: NOV 25, 2024@12:10:45 AUTHOR: LALO WONG COSIGNER: JONEL NORWOOD URGENCY: STATUS: COMPLETED GERIATRIC PACT CLINIC [facility] Has ADDENDA Type of Evaluation: Geriatric Follow-up Date of Visit: 11/25/24 11:00 Patient's SSN:[id number] DUANE TORRES is a 79 year old WHITE MALE. : Aug CC: follow up HPI: Pt is a 79 yo male pmhx significant for fibromyalgia, T2DM, and prostate cancer (in remission) presenting for follow up. Pt states his pain is well controlled as he follows with outpatient pain management. He denies any acute concerns, he recently recovered from a cold.He has been taking testosterone supplementation which gives him enegery and PSA levels are being monitored by urology. Adherence to Medications & Managed by: GERIATRIC REVIEW OF SYSTEMS: Change in weight: denies Appetite: Dysphagia (specify with or without CVA): Dentition: Sleep: denies issues Vision: Hearing: decreased hearing Wounds/Ulcers: Peripheral neuropathy (specify with or without DM): Constipation: denies Incontinence: Nocturia: gets up to urinate approx 1 timer per night Fear of falling: denies, since changing his medications he has felt less lightheadedness Assistive devices: uses a cane when ground is uneven Recent Hospitalizations: denies Recent ER Visits: denies Complete ROS: Constitutional: Eyes: ENMT: CV: denies chest pain Resp: SOB with increased activity GI: denies constipation : denies issues voiding Musculoskeletal: denies new pain Skin: Neuro: Psych: PMH: 1) Idiopathic peripheral autonomic neuropathy 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 With the exception of Allergies, if a category is not listed below, it means there were no relevant medications for the patient. The medication list was reviewed with the patient/caregiver: Yes Active Outpatient Medications (including Supplies): Active Outpatient Medications Status 1) CAMPHOR 0.5/MENTHOL 0.5% LOTION APPLY LIGHTLY TO AFFECTED ACTIVE AREA(S) THREE TIMES A DAY - (EXTERNAL USE ONLY) APPLY TO ARMS Indication: FOR ITCHING 2) CETIRIZINE HCL 10MG TAB TAKE ONE TABLET BY MOUTH TWICE A DAY ACTIVE Indication: FOR ALLERGY SYMPTOMS 3) CHOLECALCIF 50MCG (D3-2,000UNIT) TAB TAKE TWO TABLETS BY ACTIVE MOUTH ONCE A DAY Indication: FOR VITAMIN D DEFICIENCY 4) CLOBETASOL PROPIONATE 0.05% OINT APPLY LIGHTLY TO AFFECTED ACTIVE AREA(S) TWICE A DAY (EXTERNAL USE ONLY) Indication: FOR ECZEMA 5) CLOBETASOL PROPIONATE 0.05% TOP SOLN APPLY LIGHTLY TO ACTIVE AFFECTED AREA(S) ONCE A DAY NEEDED (EXTERNAL USE ONLY) Indication: SCALP ITCHING 6) CYANOCOBALAMIN 1000MCG TAB TAKE ONE TABLET BY MOUTH ONCE A ACTIVE DAY FOR B12 SUPPLEMENTATION 7) DICLOFENAC NA 1% TOP GEL APPLY 4 GM TO AFFECTED AREA(S) FOUR ACTIVE TIMES A DAY NEEDED FOR PAIN/INFLAMMATION; NOT MORE THAN 16 GRAMS DAILY TO ANY LOWER EXTREMITY JOINT. NOT MORE THAN 8 GRAMS DAILY TO ANY UPPER EXTREMITY JOINT. MAX 32GM/DAY OVER ALL JOINTS. (MEASURE DOSE WITH RULER ATTACHED INSIDE BOX) OVER HANDS AND SHOULDERS NEEDED FOR PAIN 8) DULOXETINE HCL 60MG EC CAP TAKE ONE CAPSULE BY MOUTH ONCE A ACTIVE DAY DO NOT ABRUPTLY DISCONTINUE MEDICATION. 9) HYDROCODONE 7.5/ACETAMINOPHEN 325MG TAB TAKE 1 TABLET BY ACTIVE MOUTH THREE TIMES A DAY NEEDED CAUTION: DO NOT EXCEED 4000MG PER DAY ACETAMINOPHEN (APAP) FROM ALL MEDS. Indication: FOR PAIN 10) KETOCONAZOLE 2% SHAMPOO USE SHAMPOO TO AFFECTED AREA(S) ONCE ACTIVE A DAY NEEDED *LET SIT FOR 3-5 MINUTES ON SCALP, THEN RINSE* (EXTERNAL USE ONLY) (SHAKE WELL) Indication: FOR DANDRUFF 11) LIDOCAINE 5% PATCH APPLY 1-3 PATCHES TO SKIN SITE ONCE A DAY ACTIVE NEEDED APPLY PATCH AND PRESS FIRMLY FOR 10-15 SECONDS. KEEP ON FOR 12 HOURS THEN REMOVE PATCH FOR 12 HOURS. Indication: FOR PAIN 12) METFORMIN HCL 1000MG TAB TAKE ONE TABLET BY MOUTH TWICE A ACTIVE DAY WITH MEALS FOR BLOOD SUGAR CONTROL. TAKE WITH FOOD. AVOID ALCOHOL. DISCONTINUE BEFORE GETTING XRAY DYE. 13) MUPIROCIN 2% OINT APPLY LIBERALLY TO AFFECTED AREA(S) TWICE ACTIVE A DAY EXTERNAL USE ONLY. Indication: FOR BACTERIAL INFECTION 14) PETROLATUM (WHITE) OINT APPLY LIGHTLY TO AFFECTED AREA(S) ACTIVE TWICE A DAY FOR Indication: DRY SKIN 15) POLYETHYLENE GLYCOL 3350 ORAL PWDR MIX AND DRINK 1 CAPFUL BY ACTIVE (S) MOUTH ONCE A DAY TO PREVENT CONSTIPATION. (MEASURE WITH CAP AND MIX IN 8 OZ OF WATER) 16) PRAVASTATIN NA 40MG TAB TAKE ONE-HALF TABLET BY MOUTH EVERY ACTIVE EVENING Indication: FOR HIGH CHOLESTEROL 17) PREGABALIN 100MG ORAL CAP TAKE ONE CAPSULE BY MOUTH TWICE A ACTIVE DAY *MAY CAUSE DROWSINESS* Indication: FOR NERVE PAIN 18) SALONPAS PAIN RELIEF PATCH APPLY 1 PATCH TO SKIN SITE THREE ACTIVE TIMES A DAY NEEDED (EXTERNAL USE ONLY) Indication: FOR PAIN 19) SEMAGLUTIDE 1MG/0.75ML INJ PEN 3ML INJECT 1MG UNDER THE SKIN ACTIVE EVERY WEEK Indication: FOR DIABETES 20) SODIUM FLUORIDE 1.1% (FL 0.5%) DENT GEL APPLY SPARINGLY BY ACTIVE MOUTH TWICE A DAY - AFTER BRUSHING TEETH; APPLY SPARINGLY; DO NOT EAT, DRINK OR RINSE FOR 30 MINUTES AFTER APPLICATION Indication: FOR DENTAL CARE 21) TAMSULOSIN HCL 0.4MG CAP TAKE ONE CAPSULE BY MOUTH EVERY ACTIVE EVENING APPROXIMATELY 30 MINUTES AFTER THE SAME MEAL EACH DAY (FOR PROSTATE) 22) TESTOSTERONE 1.62% 20.25MG/PUMP TOP GEL APPLY 3 PUMPS ACTIVE (60.75MG) TO AFFECTED AREA(S) ONCE A DAY APPLY TO CLEAN DRY SKIN OF UPPER ARMS OR UPPER SHOULDER ONLY Indication: FOR LOW TESTOSTERONE 23) TIZANIDINE HCL 4MG TAB TAKE ONE-HALF TABLET BY MOUTH TWICE ACTIVE DAILY NEEDED Indication: FOR SPASTICITY Active Non-VA Medications Status 1) Non-VA CIPROFLOXACIN 0.3/DEXAM 0.1% OTIC SUSP 4 DROPS TO ACTIVE AFFECTED EAR(S) TWICE A DAY 24 Total Medications Medication List was provided to the patient/caregiver at the end of the visit. ALLERGIES/ADR: SIMVASTATIN, ATORVASTATIN, ROSUVASTATIN, PRAVASTATIN VITALS: BP: 128/76 (11/25/2024 10:55) Pulse: 76 (11/25/2024 10:55) Temp: 97.4 F [36.3 C] (11/25/2024 10:55) RR: 16 (11/25/2024 10:55) Pain: 2 (11/25/2024 10:55) Weight: Measurement DT WEIGHT LB(KG)[BMI] 11/25/2024 10:55 266.6(120.93)[30*] 09/27/2024 14:23 262.7(119.16)[30*] 08/07/2024 13:30 262.8(119.20)[30*] Height: 79 in [200.7 cm] (11/25/2024 10:55) PE: General: pt is well appearing, resting comfortably on chair HEENT: CV: RRR, no rubs or murmurs, no brue noted in the carotids Pulm: no wheezing or crackels noted Ext: Neuro: oriented to time and place Gait: LABS: CMP: CREATININE 1.03 mg/dL 06/21/2024 10:40 GLUCOSE 244 H mg/dL 06/21/2024 10:40 SODIUM 139 mEq/L 06/21/2024 10:40 POTASSIUM 4.6 mEq/L 06/21/2024 10:40 CHLORIDE 106 mEq/L (06/21/24 10:40) CARBON DIOXIDE 24 mEq/L 06/21/2024 10:40 CALCIUM 9.7 mg/dL (06/21/24 10:40) PROTEIN 7.1 g/dL 06/21/2024 10:40 ALBUMIN 4.3 g/dL 06/21/2024 10:40 ALBUMIN (PB-sendout) 4.5 g/dL 04/27/2023 08:07 TOTAL BILIRUBIN 1.0 mg/dL 06/21/2024 10:40 ALKALINE PHOSPHATASE 65 U/L 06/21/2024 10:40 AST/SGOT 18 U/L 06/21/2024 10:40 ALT/SGPT 22 U/L 06/21/2024 10:40 CBC: WBC 7.7 10*3/uL (06/21/24 10:40) RBC 4.45 10*6/uL (06/21/24 10:40) HCT 40.7 % (06/21/24 10:40) MCV 91.5 fL (06/21/24 10:40) HGB 13.7 g/dL 06/21/2024 10:40 HGB A1C Collection DT Specimen Test Name Result Units Ref Range 06/21/2024 10:40 BLOOD HGA1C 6.4 H % 4.0 - 6.0 02/28/2024 13:06 BLOOD HGA1C 6.6 H % 4.0 - 6.0 11/28/2023 09:22 BLOOD HGA1C 7.4 H % 4.0 - 6.0 05/24/2023 11:09 BLOOD HGA1C 6.8 H % 4.0 - 6.0 02/10/2023 08:30 BLOOD HGA1C 7.4 H % 4.0 - 6.0 PLT 138 L 10*3/uL 06/21/2024 10:40 PSA: PROST. SPECIFIC AG.(PB-STL) 0.118 ng/mL 09/27/2024 15:13 CHOLESTEROL 131 mg/dL 05/17/2024 10:41 HDL: 36 mg/dL L (05/17/24 10:41) LDL: CALCULATED LDL 64 mg/dL 05/17/2024 10:41 Trigs: 157 mg/dL H (05/17/24 10:41) No MICRAL data found VITAMIN D, 25-HYDROXY 55.7 ng/mL 05/24/2023 11:09 B12 617 pg/mL 12/21/2022 10:20 No FOLATE (STL-MA);FOLATE (PB);FOLATE (DC 08-20);FOLATE (DC 08/20) data found TSH 1.328 uIU/mL 06/21/2024 10:40 CHEST X-RAY: Impression for CHEST X-RAY, 2 VIEWS, 04/27/23, case [id number] No visible acute cardiopulmonary disease. ASSESSMENT AND PLAN: Pt is a 79 yo male pmhx significant for fibromyalgia, T2DM, and prostate cancer (in remission) presenting for follow up. T2DM- managed by endocrine, last A1C 6.4%, continue metformin and delaglutide, will repeat A1C to monitor Fibromyalgia- pt seen by outpatient pain, increased lyrica to 100 mg bid, narco TID when active and BID if tolerable, continue regimen and patient will continue to follow pain management Testosterone replacement therapy- discussed risk and benefit with patient he would like to continue the replacement therapy we will monitor rbc counts to evaluate risk of stroke, will also order PSA as there is an elevated risk of prostate cancer with testosterone replacement HLD: endocrine stopped statin PREVENTION & HEALTH MAINTENANCE: Life Sustaining Treatment Orders RTC: 6 months /fransisco/ LALO WONG MS4 Signed: 11/25/2024 12:26 /fransisco/ JONEL NORWOOD MD STAFF PHYSICIAN ECRS Cosigned: 11/25/2024 14:04 11/25/2024 ADDENDUM STATUS: COMPLETED Type of Evaluation: Geriatric Follow-up Date of Visit: 11/25/24 11:00 Patient's SSN:[id number] DUANE TORRES is a 79 year old WHITE MALE. : Aug CC: returns for routine clinic visit HPI: hs no major c/o today. has started (restarted) testosterone replacement after gu referral in view of prostate ca. onandrogel- taking it about 5 days in seven- thinks it makes a signifciant difference in his energy level but hasn't noticed other differences. Discussed in some detail with him.otherwise he thinks he's doing well. Seeing pain mangement and has cut down on hydrocodone, still taking pregabalin for fibromyalgia Adherence to Medications & Managed by: good- self GERIATRIC REVIEW OF SYSTEMS: Change in weight: Appetite: ok Dysphagia (specify with or without CVA): Dentition: Sleep: ok Vision: ok Hearing: ok Wounds/Ulcers: Peripheral neuropathy (specify with or without DM): Constipation: Incontinence: Nocturia: Fear of falling: no Assistive devices: no Recent Hospitalizations: no Recent ER Visits: no Complete ROS: Constitutional: Eyes: ENMT: CV: Resp: GI: : Musculoskeletal: Skin: Neuro: Psych: Falls The [place] has not fallen in the last 12 months. 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 With the exception of Allergies, if a category is not listed below, it means there were no relevant medications for the patient. The medication list was reviewed with the patient/caregiver: Yes Active Outpatient Medications (including Supplies): Active Outpatient Medications Status = 1) CAMPHOR 0.5/MENTHOL 0.5% LOTION APPLY LIGHTLY TO AFFECTED ACTIVE AREA(S) THREE TIMES A DAY - (EXTERNAL USE ONLY) APPLY TO ARMS Indication: FOR ITCHING 2) CETIRIZINE HCL 10MG TAB TAKE ONE TABLET BY MOUTH TWICE A DAY ACTIVE Indication: FOR ALLERGY SYMPTOMS 3) CHOLECALCIF 50MCG (D3-2,000UNIT) TAB TAKE TWO TABLETS BY ACTIVE MOUTH ONCE A DAY Indication: FOR VITAMIN D DEFICIENCY 4) CLOBETASOL PROPIONATE 0.05% OINT APPLY LIGHTLY TO AFFECTED ACTIVE AREA(S) TWICE A DAY (EXTERNAL USE ONLY) Indication: FOR ECZEMA 5) CLOBETASOL PROPIONATE 0.05% TOP SOLN APPLY LIGHTLY TO ACTIVE AFFECTED AREA(S) ONCE A DAY NEEDED (EXTERNAL USE ONLY) Indication: SCALP ITCHING 6) CYANOCOBALAMIN 1000MCG TAB TAKE ONE TABLET BY MOUTH ONCE A ACTIVE DAY FOR B12 SUPPLEMENTATION 7) DICLOFENAC NA 1% TOP GEL APPLY 4 GM TO AFFECTED AREA(S) FOUR ACTIVE TIMES A DAY NEEDED FOR PAIN/INFLAMMATION; NOT MORE THAN 16 GRAMS DAILY TO ANY LOWER EXTREMITY JOINT. NOT MORE THAN 8 GRAMS DAILY TO ANY UPPER EXTREMITY JOINT. MAX 32GM/DAY OVER ALL JOINTS. (MEASURE DOSE WITH RULER ATTACHED INSIDE BOX) OVER HANDS AND SHOULDERS NEEDED FOR PAIN 8) DULOXETINE HCL 60MG EC CAP TAKE ONE CAPSULE BY MOUTH ONCE A ACTIVE DAY DO NOT ABRUPTLY DISCONTINUE MEDICATION. 9) HYDROCODONE 7.5/ACETAMINOPHEN 325MG TAB TAKE 1 TABLET BY ACTIVE MOUTH THREE TIMES A DAY NEEDED CAUTION: DO NOT EXCEED 4000MG PER DAY ACETAMINOPHEN (APAP) FROM ALL MEDS. Indication: FOR PAIN 10) KETOCONAZOLE 2% SHAMPOO USE SHAMPOO TO AFFECTED AREA(S) ONCE ACTIVE A DAY NEEDED *LET SIT FOR 3-5 MINUTES ON SCALP, THEN RINSE* (EXTERNAL USE ONLY) (SHAKE WELL) Indication: FOR DANDRUFF 11) LIDOCAINE 5% PATCH APPLY 1-3 PATCHES TO SKIN SITE ONCE A DAY ACTIVE NEEDED APPLY PATCH AND PRESS FIRMLY FOR 10-15 SECONDS. KEEP ON FOR 12 HOURS THEN REMOVE PATCH FOR 12 HOURS. Indication: FOR PAIN 12) METFORMIN HCL 1000MG TAB TAKE ONE TABLET BY MOUTH TWICE A ACTIVE DAY WITH MEALS FOR BLOOD SUGAR CONTROL. TAKE WITH FOOD. AVOID ALCOHOL. DISCONTINUE BEFORE GETTING XRAY DYE. 13) MUPIROCIN 2% OINT APPLY LIBERALLY TO AFFECTED AREA(S) TWICE ACTIVE A DAY EXTERNAL USE ONLY. Indication: FOR BACTERIAL INFECTION 14) PETROLATUM (WHITE) OINT APPLY LIGHTLY TO AFFECTED AREA(S) ACTIVE TWICE A DAY FOR Indication: DRY SKIN 15) POLYETHYLENE GLYCOL 3350 ORAL PWDR MIX AND DRINK 1 CAPFUL BY ACTIVE (S) MOUTH ONCE A DAY TO PREVENT CONSTIPATION. (MEASURE WITH CAP AND MIX IN 8 OZ OF WATER) 16) PRAVASTATIN NA 40MG TAB TAKE ONE-HALF TABLET BY MOUTH EVERY ACTIVE EVENING Indication: FOR HIGH CHOLESTEROL 17) PREGABALIN 100MG ORAL CAP TAKE ONE CAPSULE BY MOUTH TWICE A ACTIVE DAY *MAY CAUSE DROWSINESS* Indication: FOR NERVE PAIN 18) SALONPAS PAIN RELIEF PATCH APPLY 1 PATCH TO SKIN SITE THREE ACTIVE TIMES A DAY NEEDED (EXTERNAL USE ONLY) Indication: FOR PAIN 19) SEMAGLUTIDE 1MG/0.75ML INJ PEN 3ML INJECT 1MG UNDER THE SKIN ACTIVE EVERY WEEK Indication: FOR DIABETES 20) SODIUM FLUORIDE 1.1% (FL 0.5%) DENT GEL APPLY SPARINGLY BY ACTIVE MOUTH TWICE A DAY - AFTER BRUSHING TEETH; APPLY SPARINGLY; DO NOT EAT, DRINK OR RINSE FOR 30 MINUTES AFTER APPLICATION Indication: FOR DENTAL CARE 21) TAMSULOSIN HCL 0.4MG CAP TAKE ONE CAPSULE BY MOUTH EVERY ACTIVE EVENING APPROXIMATELY 30 MINUTES AFTER THE SAME MEAL EACH DAY (FOR PROSTATE) 22) TESTOSTERONE 1.62% 20.25MG/PUMP TOP GEL APPLY 3 PUMPS ACTIVE (60.75MG) TO AFFECTED AREA(S) ONCE A DAY APPLY TO CLEAN DRY SKIN OF UPPER ARMS OR UPPER SHOULDER ONLY Indication: FOR LOW TESTOSTERONE 23) TIZANIDINE HCL 4MG TAB TAKE ONE-HALF TABLET BY MOUTH TWICE ACTIVE DAILY NEEDED Indication: FOR SPASTICITY Active Non-VA Medications Status = 1) Non-VA CIPROFLOXACIN 0.3/DEXAM 0.1% OTIC SUSP 4 DROPS TO ACTIVE AFFECTED EAR(S) TWICE A DAY 24 Total Medications Medication List was provided to the patient/caregiver at the end of the visit. ALLERGIES/ADR: SIMVASTATIN, ATORVASTATIN, ROSUVASTATIN, PRAVASTATIN VITALS: BP: 128/76 (11/25/2024 10:55) Pulse: 76 (11/25/2024 10:55) Temp: 97.4 F [36.3 C] (11/25/2024 10:55) RR: 16 (11/25/2024 10:55) Pain: 2 (11/25/2024 10:55) Weight: Measurement DT WEIGHT LB(KG)[BMI] 11/25/2024 10:55 266.6(120.93)[30*] 09/27/2024 14:23 262.7(119.16)[30*] 08/07/2024 13:30 262.8(119.20)[30*] Height: 79 in [200.7 cm] (11/25/2024 10:55) PE: General: in nad, well groomed HEENT: nc/at, perrla, eomi CV: reg rate and rythm Pulm: clear to p and a Ext: no c,c or e Neuro: alert, oriented x3, cranial nerves 2-12 grossly intact Gait: walks unassisted LABS: CMP: CREATININE 1.03 mg/dL 06/21/2024 10:40 GLUCOSE 244 H mg/dL 06/21/2024 10:40 SODIUM 139 mEq/L 06/21/2024 10:40 POTASSIUM 4.6 mEq/L 06/21/2024 10:40 CHLORIDE 106 mEq/L (06/21/24 10:40) CARBON DIOXIDE 24 mEq/L 06/21/2024 10:40 CALCIUM 9.7 mg/dL (06/21/24 10:40) PROTEIN 7.1 g/dL 06/21/2024 10:40 ALBUMIN 4.3 g/dL 06/21/2024 10:40 ALBUMIN (PB-sendout) 4.5 g/dL 04/27/2023 08:07 TOTAL BILIRUBIN 1.0 mg/dL 06/21/2024 10:40 ALKALINE PHOSPHATASE 65 U/L 06/21/2024 10:40 AST/SGOT 18 U/L 06/21/2024 10:40 ALT/SGPT 22 U/L 06/21/2024 10:40 CBC: WBC 7.7 10*3/uL (06/21/24 10:40) RBC 4.45 10*6/uL (06/21/24 10:40) HCT 40.7 % (06/21/24 10:40) MCV 91.5 fL (06/21/24 10:40) HGB 13.7 g/dL 06/21/2024 10:40 HGB A1C Collection DT Specimen Test Name Result Units Ref Range 06/21/2024 10:40 BLOOD HGA1C 6.4 H % 4.0 - 6.0 02/28/2024 13:06 BLOOD HGA1C 6.6 H % 4.0 - 6.0 11/28/2023 09:22 BLOOD HGA1C 7.4 H % 4.0 - 6.0 05/24/2023 11:09 BLOOD HGA1C 6.8 H % 4.0 - 6.0 02/10/2023 08:30 BLOOD HGA1C 7.4 H % 4.0 - 6.0 PLT 138 L 10*3/uL 06/21/2024 10:40 PSA: PROST. SPECIFIC AG.(PB-STL) 0.118 ng/mL 09/27/2024 15:13 CHOLESTEROL 131 mg/dL 05/17/2024 10:41 HDL: 36 mg/dL L (05/17/24 10:41) LDL: CALCULATED LDL 64 mg/dL 05/17/2024 10:41 Trigs: 157 mg/dL H (05/17/24 10:41) No MICRAL data found VITAMIN D, 25-HYDROXY 55.7 ng/mL 05/24/2023 11:09 B12 617 pg/mL 12/21/2022 10:20 No FOLATE (STL-MA);FOLATE (PB);FOLATE (DC 08-20);FOLATE (DC 08/20) data found TSH 1.328 uIU/mL 06/21/2024 10:40 CHEST X-RAY: Impression for CHEST X-RAY, 2 VIEWS, 04/27/23, case [id number] No visible acute cardiopulmonary disease. ASSESSMENT AND PLAN: 1. 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 Will check hgb and psa today2. dm- check a1c today- last have been mid 6- cont regimen3. chronic pain/fibromyalgia- reducing hydrocodone- encouraged, cont on pregabalin, following in pain management4. bph- stable sx on tamsulosin Age Friendly 4M's MEDICATION Medications were addressed at this visit. MENTATION Dementia was addressed at this visit. Comment: stable screening ad 8 MOBILITY -------- Mobility was addressed at this visit. Comment: walks 250 ft unassisted PREVENTION & HEALTH MAINTENANCE: Life Sustaining Treatment Orders RTC: /fransisco/ JONEL NORWOOD MD STAFF PHYSICIAN ECRS Signed: 11/25/2024 14:15 LALO WONG [facility] Nov 25, 2024 11:06 AM NURSING NOTE: LOCAL TITLE: V15 PACT FACE TO FACE NOTE STL STANDARD TITLE: NURSING NOTE DATE OF NOTE: NOV 25, 2024@11:06 ENTRY DATE: NOV 25, 2024@11:06:36 AUTHOR: JOANNA ROQUE COSIGNER: URGENCY: STATUS: COMPLETED V15 PACT FACE TO FACE NOTE STL Has ADDENDA Provider Visit: Patient Identifiers : Full Name Date of Reason for visit: Established Follow-Up Doctor Jonel Norwood Mode of Arrival: Ambulatory Allergy Review: SIMVASTATIN, ATORVASTATIN, ROSUVASTATIN, PRAVASTATIN Allergy list reviewed and remains current. Recent Vital Signs: Temperature: 97.4 F [36.3 C] (11/25/2024 10:55) Pulse: 76 (11/25/2024 10:55) Respiration: 16 (11/25/2024 10:55) B/P: 128/76 (11/25/2024 10:55) Pain: 2 (11/25/2024 10:55) Wt: 266.6 lb [120.93 kg] (11/25/2024 10:55) Ht: 79 in [200.7 cm] (11/25/2024 10:55) BMI: 30.1 POX: 99% (11/25/2024 10:55) Blood sugar glucometer reading: Not applic Would you like to discuss any personal problem, family problem, alcohol use, drug use, or a mental or emotional illness? No Contact provided Primary Care phone number and encouraged to call if any questions or concerns. Review that after hours nurse line [phone] and emergency room are available 05/06 for patient use. Contact verbalized good understanding. Alcohol Use Screen (AUDIT-C) - V: Alcohol Screen: SCREEN FOR ALCOHOL (AUDIT-C) An alcohol screening test (AUDIT-C) was negative (score=0). 1. How often did you have a drink containing alcohol in the past year? Consider a drink to be a 12 ounce can or bottle of regular beer, 8 ounces of malt liquor, a 5 ounce glass of table wine, or a 1.5 ounce shot of liquor (like scotch, gin, or vodka). Never 2. How many drinks containing alcohol did you have on a typical day when you were drinking in the past year? Response not required due to responses to other questions. 3. How often did you have six or more drinks on one occasion in the past year? Response not required due to responses to other questions. Depression Screening - V: Perform PHQ-2 A PHQ-2 screen was performed. The score was 0 which is a negative screen for depression. Over the past two weeks, how often have you been bothered by the following problems? 1. Little interest or pleasure in doing things Not at all 2. Feeling down, depressed, or hopeless Not at all Homelessness/Food Insecurity Screen - DI,L,N,P,PH,PS,S,U: In the past 2 months, have you been living in stable housing that you own, rent, or stay in as part of a household? Yes - Living in stable housing. Are you worried or concerned that in the next 2 months you may NOT have stable housing that you own, rent, or stay in as part of a household? No - Not worried about housing near future The [place] reports the following: Within the past 12 months, you worried whether your food would run out before you got money to buy more. Never true Within the past 12 months, the food you bought just didn't last and you didn't have money to get more. Never true COVID-19 Immunization - L,N,P,PH,U: Refused Pfizer Monovalent COVID-19 vaccine Immunization: COVID-19 (PFIZER), MRNA, LNP-S, PF, JUAN-SUCROSE, 30 MCG/0.3 ML (AGES 12+ YEARS) Refusal Reason: PATIENT DECISION Patient refuses all immunization(s) in the COVID-19 group Date Documented: 11/25/24 11:10 [facility] MAP: PERSONAL HEALTH PLAN INVENTORY & MAP [place]'s Response: My Granddaughter. /fransisco/ JOANNA ROQUE JR, LPN LICENSED PRACTICAL NURSE Signed: 11/25/2024 11:11 11/25/2024 ADDENDUM STATUS: COMPLETED Influenza Immunization - L,N,P,PH,U: Influenza, High-Dose, Trivalent, Preservative Free (Fluzone-Syringe) Administered: INFLUENZA, HIGH-DOSE, TRIVALENT, PF Date Administered: Nov 25, 2024 11:00 Account Receivable Clerk: SANOFI PASTEUR Lot: [id number] Exp Date: May 12, [address] [facility]: [phone] Admin Route/Site: INTRAMUSCULAR/RIGHT DELTOID Dosage: 0.5mL Vaccine Information Statement(s): INFLUENZA(FLU) VACC(INACTIVATED OR RECOMBINANT)VIS Jun 18, 2021 (K[place]ARWANDA) Order By: Policy Administered By: Joanna Roque The Influenza Vaccine Information Statement (VIS) was reviewed with the patient/caregiver which lists the benefits and risks of the vaccine and the risks of not receiving the Influenza vaccine. The patient/caregiver denied any prior severe reaction to this vaccine or its components or a severe allergic reaction, such as anaphylaxis, to any vaccine or any injectable therapy. The patient/caregiver gave verbal consent to receive the vaccine. /fransisco/ JOANNA ROQUE JR, LPN LICENSED PRACTICAL NURSE Signed: 11/25/2024 11:47 JOANNA ROQUE [facility]
--- OUTSIDE RECORDS SUMMARY | 2025-01-27 16:16 | XMS_ITS | Patient Health Summary ---
Author Organization [facility] Address [address] [place] [address] Care Team Providers Care Lamination Builder Name Role Phone Juan Ha MD Primary Care Provider [phone] Michelle Barbosa RN Unavailable Unavailable Juan Joshi I OD Unavailable [phone] [facility] Unavailab le Note from [facility],non-owned Affiliates and Associated Physician Practices is amultiple site organization consisting of ambulatory clinics and hospital sitesin [place], [place], [place] and [place]. This disclosure is being madepursuant to the Care Everywhere program and may not contain all information available regarding this patient. Last updated 18.[facility] Allergies * Atorvastatin(Other) * Rosuvastatin(Other) * Simvastatin(Other) [...] FLUZONE TRIVALENT; 6MO+) (IIV3)(Given 08/13/2012) * Covid Staples primary monovalent 12+ yr 0.3mL Purple cap(Given 12/28/2020, 12/06/2020) * DT (AGE 0-7)(Given 10/13/2002) * FLU VACCINE QUAD IIV4 SPLIT 0.25 ML IM(Given 09/12/2019) * INFLUENZA A K9H3-25 VACCINE(Given 10/26/2009) * INFLUENZA VACCINE(Given 10/16/2020, 09/13/2018, [...] Comments Blood Pressure 148/78 01/18/2022 1:00 PM INDUSTRIAL PSYCHOLOGY TEACHER Pulse 75 01/18/2022 1:00 PM INDUSTRIAL PSYCHOLOGY TEACHER Temperature 36.8 C (98.3 F) 01/18/2022 11:25 AM INDUSTRIAL PSYCHOLOGY TEACHER Respiratory Rate 6 01/18/2022 1:00 PM INDUSTRIAL PSYCHOLOGY TEACHER Oxygen Saturation 97% 01/18/2022 1:00 PM INDUSTRIAL PSYCHOLOGY TEACHER Inhaled Oxygen Concentration - - Weight 129.7 kg (286 lb) 01/18/2022 8:05 AM INDUSTRIAL PSYCHOLOGY TEACHER Height 200.7 cm (6' 7 ) 01/18/2022 8:05 AM INDUSTRIAL PSYCHOLOGY TEACHER Body Mass Index 32.22 01/18/2022 8:05 AM INDUSTRIAL PSYCHOLOGY TEACHER Medical Devices Implanted Type Area Diesel Mechanic Apprentice Device Identifier Shelf Expiration Date Model / Serial / Lot Mesh Srg Ventralight St Sepra 6x4in Implanted:Qty: 1 on 01/18/2022 by Demetrius Saini MD at [facility] N/A: [employer] 08/10/2023 [id number] / / [id number] Sys Fx 37cm Cpsr Str Ss Peek Perm Hndl Implanted:Qty: 1 on 01/18/2022 by Demetrius Saini MD at [facility] N/A: [employer] 09/09/2023 [id number] / / [id number] Procedures * GLUCOSE - POINT OF CARE(Performed [...] complication, without long-term current use of insulin ([facility]) * URINALYSIS W/MICROSCOPIC NO CULTURE(Performed 01/07/2021) Performed for Type 2 diabetes mellitus without complication, without long-term current use of insulin ([facility]) * CBC W/O DIFFERENTIAL(Performed 01/07/2021) Performed for Immune thrombocytopenic purpura ([facility]) * HEMOGLOBIN A1C(Performed 01/07/2021) Performed for Type 2 diabetes mellitus without complication, without long-term current use of insulin ([facility]) * LIPID PROFILE(Performed 01/07/2021) Performed for Pure hypercholesterolemia, Type 2 diabetes mellitus without complication, without long-term current use of insulin ([facility]) * COMPREHENSIVE METABOLIC PANEL(Performed 01/07/2021) Performed for Primary osteoarthritis of left knee, Pure hypercholesterolemia, Type 2 diabetes mellitus without complication, without long-term current use of insulin ([facility]) * PROSTATE SPECIFIC ANTIGEN SCREEN(Performed 01/07/2021) Performed for Screening for prostate cancer * TESTOSTERONE TOTAL(Performed 01/07/2021) Performed for Well adult exam * HEMOGLOBIN A1C - POINT OF CARE (AMB) [facility](Performed 07/14/2020) Performed for Type 2 diabetes mellitus without complication, without long-term current use of insulin ([facility]) * HEMOGLOBIN A1C - POINT OF CARE (AMB) [facility](Performed 12/03/2019) Performed for Type 2 diabetes mellitus without complication, without long-term current use of insulin ([facility]) * COLONOSCOPY(Performed 03/14/2019) * PATHOLOGY/CYTOLOGY REPORT ORDER(Performed [...] - POINT OF CARE (01/18/2022 11:27 AM INDUSTRIAL PSYCHOLOGY TEACHER) Only the most recent of2 resultswithin the time period is included. Glucose WB/POC 176(H) 70 - 115 mg/dL 01/18/2022 11:31 AM INDUSTRIAL PSYCHOLOGY TEACHER [facility] Specimen Type Cap Fingerstick 2021 11:31 AM INDUSTRIAL PSYCHOLOGY TEACHER [facility] Blood BLOOD SPECIMEN / Unknown 01/18/2022 11:27 AM INDUSTRIAL PSYCHOLOGY TEACHER 01/18/2022 11:31 AM INDUSTRIAL PSYCHOLOGY TEACHER Demetrius Saini MD LAB - POINT OF CARE ORDERABLES [facility] [address] [place] [phone], [facility] [phone] * PATHOLOGY TISSUE (01/18/2022 10:50 AM INDUSTRIAL PSYCHOLOGY TEACHER) Case Report Surgical Pathology Report Case: [id number] Authorizing Provider: Demetrius Saini MD Collected: 01/18/2022 10:50 AM Ordering Location: [facility] OP Received: 01/18/2022 01:35 PM Pathologist: Nga Rai MD Specimen: Peritoneum, Pre Peritoneal Fat 01/19/2022 3:17 PM INDUSTRIAL PSYCHOLOGY TEACHER [facility] Final Diagnosis Soft tissue, pre-peritoneal fat, excision (A): - Benign mesothelial lined adipose tissue consistent with hernia sac 01/19/2022 3:17 PM [facility] Microscopic Description and Comment Microscopic examination substantiates the final diagnosis. 01/19/2022 3:17 PM [facility] Clinical History The patient is a 76-year-old man with a symptomatic umbilical hernia. Operative procedure: laparoscopic umbilical hernia repair with mesh. 01/19/2022 3:17 PM [facility] Gross Description The requisition and specimen(s) are identified with the patient's name, Duane Torres. Received in formalin, specimen A , is a 6.5 x 3.5 x 1.5 cm fragment of fibroadipose tissue. Sectioning shows yellow-collazo cut surfaces. No masses or lesions are seen. Flatwork Washer sections are submitted in cassette A1. MP 01/19/2022 3:17 PM [facility] Disclaimer The performance characteristics of all immunohistochemical and indirect immunofluorescence stains (if any) cited in this report were determined by the Histopathology Laboratory of [facility]. Some of these tests were developed by [...] the attending (teaching) pathologist. 01/19/2022 3:17 PM [facility] Embedded Images 01/19/2022 3:17 PM [facility] Biopsy, Excision SPECIMEN FROM PERITONEUM / Unknown 01/18/2022 10:50 AM INDUSTRIAL PSYCHOLOGY TEACHER 01/18/2022 1:35 PM INDUSTRIAL PSYCHOLOGY TEACHER Comment:Pre-op diagnosis: Umbilical hernia without obstruction and without gangrene Demetrius Saini MD LAB - PATHOLOGY/CYTO LOGY ORDERABLES [facility] [address] [place], [place] [address] [place] [address] * ETT LINE PERFORMABLE (01/18/2022 10:10 AM [facility]) Narrative Karie Forte APRN-CRNA - 01/18/2022 10:10 AM INDUSTRIAL PSYCHOLOGY TEACHER Karie Forte APRN-CRNA 01/18/2022 10:11 AM Endotracheal Tube Placement: Patient Location: OR. Intubation Event Date/Time: 01/18/2022 10:06 AM Procedure: intubation (56400). Procedure Section: Sedation: under general anesthesia. Indications [...] - 10.5 10 3/uL 01/18/2022 10:02 AM [facility] Comment:All CBC parameters h ave been checked. RBC 4.62 4.30 - 5.70 10 6/uL 01/18/2022 10:02 AM [facility] Hemoglobin 13.6 12.0 - 17.6 g/dL 01/18/2022 10:02 AM [facility] Hematocrit 40.6 35.2 - 51.7 % 01/18/2022 10:02 AM [facility] MCV 87.9 80.7 - 98.3 fL 01/18/2022 10:02 AM [facility] MCH 29.4 26.7 - 34.0 pg 01/18/2022 10:02 AM [facility] MCHC 33.5 30.8 - 35.9 g/dL 01/18/2022 10:02 AM [facility] Platelet Count 58(L) 150 - 400 10 3/uL 01/18/2022 10:02 AM [facility] Comment:Checked with the pre vious result. RDW-SD 44.9 36.0 - 50.0 fL 01/18/2022 10:02 AM [facility] RDW-CV 13.9 11.2 - 14.8 % 01/18/2022 10:02 AM [facility] MPV 12.4 9.4 - 12.9 fL 01/18/2022 10:02 AM [facility] nRBC Absolute 0.00 0 10 3/uL 01/18/2022 10:02 AM [facility] nRBC Auto 0.0 0 /100 WBC 01/18/2022 10:02 AM [facility] Blood BLOOD SPECIMEN / Unknown Venipuncture / Unknown 01/18/2022 9:39 AM INDUSTRIAL PSYCHOLOGY TEACHER 01/18/2022 9:49 AM [facility] Yue Hoffman MD LAB - HEMATOLOGY OR DERABLES [facility] [address] [place] [phone], [facility] [phone] * URINALYSIS MICROSCOPIC ONLY REFLEXED (12/30/2021 9:33 AM INDUSTRIAL PSYCHOLOGY TEACHER) Only the most recent of4 resultswithin the [...] test is not needed. 12/30/2021 9:33 AM INDUSTRIAL PSYCHOLOGY TEACHER 12/30/2021 Narrative Resulting Agency Comment [facility]: [facility] [address] [phone] Juan Ha MD LAB - URINALYSIS ORD ERABLES [facility] INSURANCE BILL [address] [place] [address] * (ABNORMAL) URINALYSIS W/MICROSCOPIC NO CULTURE (12/30/2021 9:33 AM INDUSTRIAL PSYCHOLOGY TEACHER) Only the most recent of4 resultswithin the time period is included. Specific [place] UA 1.027 1.005 - 1.030 [facility] INSURANCE [...] CATCH PROCEDURE / Unknown 12/30/2021 9:33 AM INDUSTRIAL PSYCHOLOGY TEACHER 12/30/2021 Narrative Resulting Agency Comment Lab Testing performed at: [facility] [address] [phone] Juan Ha MD LAB - URINALYSIS ORD ERABLES [facility] INSURANCE BILL [address] [place] [address] * (ABNORMAL) COMPREHENSIVE METABOLIC PANEL (12/30/2021 9:33 AM INDUSTRIAL PSYCHOLOGY TEACHER) Only the most recent of21 resultswithin the [...] BLOOD SPECIMEN / Unknown 12/30/2021 9:33 AM INDUSTRIAL PSYCHOLOGY TEACHER 12/30/2021 Narrative Resulting Agency Comment Lab Testing performed at: [facility] [address] [phone] Juan Ha MD LAB - CHEMISTRY SWETHA CHAPPELL Performing Organization Address City/[facility]/ZIP Co de Phone Number [facility] INSURANCE BILL [address] [place] [address] * (ABNORMAL) PROSTATE SPECIFIC ANTIGEN SCREEN (12/30/2021 9:33 AM INDUSTRIAL PSYCHOLOGY TEACHER) Only the most recent of5 resultswithin the time period is included. PSA 4.9(H) 0.0 - 4.0 ng/mL [facility] INSURANCE BILL Comment: Mariza ECLIA methodology. . According to the [place] [employer], Serum PSA should decrease and [...] BLOOD SPECIMEN / Unknown 12/30/2021 9:33 AM INDUSTRIAL PSYCHOLOGY TEACHER 12/30/2021 Narrative Resulting Agency Comment Lab Testing performed at: [facility] [address] [phone] Juan Ha MD LAB - CHEMISTRY SWETHA CHAPPELL Performing Organization Address City/[facility]/ZIP Co de Phone Number [facility] INSURANCE BILL [address] [place] [address] * (ABNORMAL) LIPID PROFILE (12/30/2021 9:33 AM INDUSTRIAL PSYCHOLOGY TEACHER) Only the most recent of11 resultswithin the [...] BLOOD SPECIMEN / Unknown 12/30/2021 9:33 AM INDUSTRIAL PSYCHOLOGY TEACHER 12/30/2021 Narrative Resulting Agency Comment [facility] performed [facility]: [facility] [address] [phone] Juan Ha MD LAB - CHEMISTRY SWETHA CHAPPELL [facility] INSURANCE BILL [address] [place] [address] * (ABNORMAL) CULTURE AEROBIC (05/20/2021 12:00 AM [...] Resulting Agency Comment Lab Testing performed at: [facility] [phone] Juan Ha MD LAB - MICROBIOLOGY O RDERABLES Performing Organization Address [facility] de Phone Number [facility] INSURANCE BILL [address] [place] [address] * MICROALB/CREAT RATIO URINE RANDOM PANEL (01/07/2021 11:21 AM INDUSTRIAL PSYCHOLOGY TEACHER) Only the most recent of7 resultswithin the [...] CATCH PROCEDURE / Unknown 01/07/2021 11:21 AM INDUSTRIAL PSYCHOLOGY TEACHER 01/07/2021 Narrative [facility] INSURANCE BILL - 01/08/2021 3:08 PM INDUSTRIAL PSYCHOLOGY TEACHER A courtesy copy of this report has been sent to the patient Resulting Agency Comment Lab Testing performed at: [facility] [phone] Juan Ha MD LAB - URINE CHEMISTR Y ORDERABLES Performing Organization Address [facility] de Phone Number [facility] INSURANCE BILL [address] [place] [address] * TESTOSTERONE TOTAL (01/07/2021 11:21 AM INDUSTRIAL PSYCHOLOGY TEACHER) Testosterone 351 264 - 916 ng/dL [facility] INSURANCE BILL Comment: Adult male reference interval is based on a population of healthy nonobese males (BMI <30) between 19 and 39 years old. nilsa Soto.al. JCEM 2017,102;8772-5776. PMID: [id number]. FASTING Blood BLOOD SPECIMEN / Unknown 01/07/2021 11:21 AM INDUSTRIAL PSYCHOLOGY TEACHER 01/07/2021 Narrative Resulting Agency Comment Lab Testing performed at: [facility] [address] [phone] Juan Ha MD LAB - CHEMISTRY SW[facility]HA [facility]APPELL [facility] [address] [place] [address] * (ABNORMAL) HEMOGLOBIN A1C (01/07/2021 11:21 AM INDUSTRIAL PSYCHOLOGY TEACHER) Only the most recent of21 resultswithin the time period is included. Hemoglobin A1c 6.5(H) 4.8 - 5.6 % [facility] INSURANCE BILL Comment: . Prediabetes: 5.7 - 6.4 Diabetes: >6.4 Glycemic control for adults with diabetes: <7.0 FASTING Blood BLOOD SPECIMEN / Unknown 01/07/2021 11:21 AM INDUSTRIAL PSYCHOLOGY TEACHER 01/07/2021 Narrative Resulting Agency Comment Lab Testing performed at: [employer] [address] [phone] Juan Ha MD LAB - CHEMISTRY SWETHA CHAPPELL Performing Organization Address City/[facility]/ZIP Co de Phone Number [facility] INSURANCE BILL [address] [place] [address] * HEMOGLOBIN A1C - POINT OF CARE [...] * PATHOLOGY/CYTOLOGY REPORT ORDER (01/14/2019 3:41 PM INDUSTRIAL PSYCHOLOGY TEACHER) Narrative 01/14/2019 3:41 PM INDUSTRIAL PSYCHOLOGY TEACHER Ordered by an unspecified provider. Scanned Document LAB - PATHOLOGY/CYTO LOGY ORDERABLES * COLONOSCOPY (01/14/2019 2:50 PM INDUSTRIAL PSYCHOLOGY TEACHER) Narrative 01/14/2019 2:50 PM INDUSTRIAL PSYCHOLOGY TEACHER Ordered by an unspecified provider. Scanned Document SCANNING ONLY * (ABNORMAL) URINALYSIS REFLEX TO MICROSCOPIC NO CULTURE (09/18/2018 9:21 AM INDUSTRIAL PSYCHOLOGY TEACHER) Only the most recent of4 resultswithin the time period is included. [facility] Specific [place] UA 1.018 1.005 - 1.030 [facility] INSURANCE [...] and not performed. FASTING 09/18/2018 9:21 AM INDUSTRIAL PSYCHOLOGY TEACHER 09/18/2018 Narrative Resulting Agency Comment [facility] [address] [phone] Juan Ha MD LAB - URINALYSIS ORD ERABLES [facility] INSURANCE BILL [address] [place] [address] * (ABNORMAL) CBC W AUTO DIFFERENTIAL (03/05/2018 8:52 AM CDT) Only the most recent of21 resultswithin the time period is included. [facility] WBC 10.8(H) 3.5 - 10.5 10 3/uL 03/05/2018 9:07 AM CDT [facility] RBC 5.46 4.30 - 5.70 10 6/uL 03/05/2018 9:07 AM CDT [facility] Hemoglobin 15.9 13.5 - 17.5 g/dL 03/05/2018 9:07 AM [facility] Hematocrit 45.1 39.0 - 50.0 % 03/05/2018 9:07 AM [facility] MCV 82.6 81.0 - 97.0 fL 03/05/2018 9:07 AM [facility] MCH 29.1 28.0 - 34.0 pg 03/05/2018 9:07 AM [facility] MCHC 35.3 32.0 - 36.0 g/dL 03/05/2018 9:07 AM [facility] Platelet Count 42(L) 150 - 400 10 3/uL 03/05/2018 9:07 AM [facility] Comment:Checked by repeat an alysis. RDW-SD 39.5 36.0 - 50.0 fL 03/05/2018 9:07 AM [facility] RDW-CV 13.4 11.2 - 14.8 % 03/05/2018 9:07 AM [facility] MPV 12.0 9.3 - 12.8 fL 03/05/2018 9:07 AM [facility] nRBC Absolute 0.00 0 10 3/uL 03/05/2018 9:07 AM [facility] nRBC Auto 0.0 0 /100 WBC 03/05/2018 9:07 AM [facility] Neutrophils % 75.5(H) 35.0 - 70.0 % 03/05/2018 9:07 AM [facility] Lymphocytes % 17.0(L) 19.7 - 55.1 % 03/05/2018 9:07 AM [facility] Monocytes % 5.9 3.0 - 15.0 % 03/05/2018 9:07 AM [facility] Eosinophils % 1.2 0.0 - 6.0 % 03/05/2018 9:07 AM [facility] Basophil % 0.2 0.0 - 1.5 % 03/05/2018 9:07 AM [facility] Neutrophils Absolute 8.1(H) 1.6 - 7.0 10 3/uL 03/05/2018 9:07 AM [facility] Lymphocyte Absolute 1.8 0.8 - 2.9 10 3/uL 03/05/2018 9:07 AM CDT [facility] Monocytes Absolute 0.64 0.14 - 0.66 10 3/uL 03/05/2018 9:07 AM CDT [facility] Eosinophils Absolute 0.13 0.00 - 0.22 10 3/uL 03/05/2018 9:07 AM CDT [facility] Basophils Absolute 0.02 0.00 - 0.06 10 3/uL 03/05/2018 9:07 AM CDT [facility] Immature Granulocytes % 0.2 0.0 - 1.0 % 03/05/2018 9:07 AM CDT [facility] Blood BLOOD SPECIMEN / Unknown Venipuncture / Unknown 03/05/2018 8:52 AM CDT 03/05/2018 9:01 AM CDT Nilson Art MD LAB - HEMATOLOGY ORD ERABLES Performing Organization Address City/[facility]/ZIP Co de Phone Number [address] [phone] * IGG BLOOD (03/05/2018 8:52 AM CDT) IgG 1,044 540 - 1,822 mg/dL 03/05/2018 11:45 AM CDT [facility] Blood BLOOD SPECIMEN / Unknown Venipuncture / Unknown 03/05/2018 8:52 AM CDT 03/05/2018 9:26 AM CDT Nilson Art MD LAB - CHEMISTRY ORDSelam CHAPPELL [address] [phone] * (ABNORMAL) BASIC METABOLIC PANEL (CALCIUM TOTAL) (05/15/2017 9:00 AM CDT) Only the most recent of2 resultswithin the time period is included. Glucose 196(H) 65 - 99 mg/dL [facility] (BEAKER) BUN 13 8 - 27 mg/dL [facility] (AKER) Creatinine 0.84 0.76 - 1.27 mg/dL [facility] (BEAKER) eGFR non- 89 >59 mL/min/1.7 3 [facility] (BEAKER) eGFR 103 >59 mL/min/1.7 3 [facility] (BEAKER) BUN/Creatinine Ratio 15 10 - 24 [facility] (BEAKER) Sodium 141 134 - 144 mmol/L [facility] (BEAKER) Potassium 4.2 3.5 - 5.2 mmol/L [facility] (BEAKER) Chloride 102 96 - 106 mmol/L [facility] (BEAKER) CO2 22 18 - 29 mmol/L [facility] (BEAKER) Calcium 9.4 8.6 - 10.2 mg/dL [facility] (BEAKER) Blood specimen (specimen) BLOOD SPECIMEN / Unknown 05/15/2017 9:00 AM CDT 05/15/2017 Narrative [facility] ([facility]) - 05/16/2017 7:13 AM CDT Performed at: [address] [place] [phone] Hyperbaric Nurse: Maikel Perales PhD, Phone: [phone] Specimen Comment: A courtesy copy of this report has been sent to Specimen Comment: the patient. Juan Ha MD LAB - CHEMISTRY SWETHA CHAPPELL [facility] ([facility]) * CK BLOOD (05/15/2017 9:00 AM CDT) CK Total 97 24 - 204 U/L [facility] Blood specimen (specimen) BLOOD SPECIMEN / Unknown 05/15/2017 9:00 AM CDT 05/15/2017 Narrative [facility] (BEAKER) - 05/16/2017 7:13 AM CDT Performed at: [address] [place] [id number] Hyperbaric Nurse: Maikel Perales PhD, Phone: [phone] Specimen Comment: A courtesy copy of this report has been sent to Specimen Comment: the patient. Juan Ha MD LAB - CHEMISTRY SWETHA CHAPPELL [facility] ([facility]) * FOLATE (04/23/2014 8:29 AM CDT) Folate 15.7 >3.0 ng/mL [facility] (BEAKER) Comment: A serum folate concentration of less than 3.1 ng/mL is considered to represent clinical deficiency. Other (qualifier value) 04/23/2014 8:29 AM CDT 04/23/2014 12:55 PM CDT Narrative [facility] ([facility]) - 04/24/2014 7:31 AM CDT Performed at: [facility] [id number] Hyperbaric Nurse: Demetrius Morton MD, Phone: [phone] Juan Ha MD LAB - CHEMISTRY SWETHA CHAPPELL Performing Organization Address [facility]/ZIP Co de Phone Number [facility] ([facility]) * TSH (01/09/2014 9:25 AM INDUSTRIAL PSYCHOLOGY TEACHER) Only the most recent of4 resultswithin the time period is included. Pathologist [facility] TSH 1.490 0.450 - 4.500 uIU/mL [facility] ([facility]) Venous blood specimen (specimen) 01/09/2014 9:25 AM INDUSTRIAL PSYCHOLOGY TEACHER 01/09/2014 1:00 PM INDUSTRIAL PSYCHOLOGY TEACHER Narrative [facility] (BEAKER) - 01/10/2014 9:26 AM INDUSTRIAL PSYCHOLOGY TEACHER Performed at: - Lab[address] [id number] Hyperbaric Nurse: Demetrius Morton MD, Phone: [phone] Juan Ha MD LAB - CHEMISTRY SWETHA CHAPPELL [facility] ([facility]) * PATHOLOGY TISSUE FOR DERMATOLOGY (03/08/2012 12:00 AM CDT) Result CASE: [id number] PATIENT: DUANE TORRES PATHOLOGIC DIAGNOSIS: A. Right [...] Kacie Yip M.D. Electronically signed 03/12/2012 2:05:37PM [facility] Comment: Performed at: Dermatopathology Laboratory [facility] - Department of Dermatology [address] [place] [address], Room [address] [place] [address] Phone number: [phone] Toll Free: [phone] FAX: [phone] Skin (tissue) specimen (specimen) 03/08/2012 03/09/2012 Narrative [facility] - 03/12/2012 2:06 PM CDT Preferred Lab:->Derm-Path Specimen A: Type->Shave Site->R forehead History->3 mm dark brown macule Impression->blue nevus vs ink spot lentigo, r/o MM Check Margins:->N/A Prior Biopsy->N/A Specimen B: Type->Shave Site->R cheek History->4 mm pink pearly papule Impression->r/o BCC vs fibrous papule Check Margins:->N/A Prior Biopsy->N/A Historical Provider MD LAB - PATHOLOGY/C YTOLOGY ORDERABLES [facility] [address] [place] [address]. [address] Floor Lab [address] [phone] * PT-INR [facility] (10/04/2011 1:58 PM INDUSTRIAL PSYCHOLOGY TEACHER) Only the most recent of2 resultswithin the time period is included. Pathologist [facility] INR 1.0 0.8 - 1.2 [facility] ([facility]) Comment: Reference interval is for non-anticoagulated patients. Suggested INR therapeutic range for Vitamin K antagonist therapy: Standard Dose (moderate intensity therapeutic range): 2.0 - 3.0 Higher intensity therapeutic range 2.5 - 3.5 PT 10.6 9.1 - 12.0 sec [facility] ([facility]) Comment:Please note refere nce interval change 10/04/2011 1:58 PM INDUSTRIAL PSYCHOLOGY TEACHER 10/04/2011 9:09 PM INDUSTRIAL PSYCHOLOGY TEACHER Narrative [facility] ([facility]) - 10/05/2011 4:16 PM INDUSTRIAL PSYCHOLOGY TEACHER Performed at: [address] [place] [id number] Hyperbaric Nurse: Laura Ibanez MD, Phone: [phone] Historical Provider LAB - COAGULATION ORDERABLES [facility]) * (ABNORMAL) RIKKI W SINGLE RFLX IF POSITIVE (10/04/2011 1:58 PM INDUSTRIAL PSYCHOLOGY TEACHER) Only the most recent of2 resultswithin the time period is included. Pathologist [facility] RIKKI Direct Positive( A) Negative [facility] (BEAKER) RELATIONSHIP MANAGER Antibody <0.2 0.0 - 0.9 AI [facility] (BEAKER) Sheridan Antibody <0.2 0.0 - 0.9 AI [facility] (BEAKER) Antiscleroderma-70 Antibody <0.2 0.0 - 0.9 AI [facility] (BEAKER) Sjogren's Antibodies (SSA) <0.2 0.0 - 0.9 AI [facility] (BEAKER) Sjogren's Antibodies (SSB) 3.6(H) 0.0 - 0.9 AI [facility] ([facility]) Antichromatin Antibody IgG <0.2 0.0 - 0.9 AI [facility] ([employer]) Anti-Caterina-1 <0.2 0.0 - 0.9 AI [facility] ([employer]) Anti-Centromere B Antibody <0.2 0.0 - 0.9 AI [facility] ([employer]) See below [facility] ([employer]) Comment: Autoantibody Disease Association Condition Frequency --------- Antinuclear Antibody, SLE, mixed connective Direct (RIKKI-D) tissue diseases --------- dsDNA SLE 40 - 60% --------- Chromatin Drug induced SLE 90% SLE 48 - 97% --------- SSA (Ro) SLE 25 - 35% Sjogren's Syndrome 40 - 70% Lupus 100% --------- SSB (La) SLE 10% Sjogren's Syndrome 30% --------- Sm (anti-Sheridan) SLE 15 - 30% --------- RELATIONSHIP MANAGER Mixed Connective Tissue Disease 95% (U1 nRNP, SLE 30 - 50% anti-ribonucleoprotein) Polymyositis and/or Dermatomyositis 20% --------- Scl-70 (antiDNA Scleroderma (diffuse) 20 - 35% topoisomerase) Crest 13% --------- Caterina-1 Polymyositis and/or Dermatomyositis 20 - 40% --------- Centromere B Scleroderma - Crest variant 80% 10/04/2011 1:58 PM INDUSTRIAL PSYCHOLOGY TEACHER 10/04/2011 9:09 PM INDUSTRIAL PSYCHOLOGY TEACHER Narrative [facility]) - 10/05/2011 4:16 PM INDUSTRIAL PSYCHOLOGY TEACHER Performed at: [address] [phone] Hyperbaric Nurse: Laura Ibanez MD, Phone: [phone] Historical Provider LAB - SEROLOGY OR DERABLES [facility]) * MITOCHONDRIAL ANTIBODY SCREEN (10/04/2011 1:58 PM INDUSTRIAL PSYCHOLOGY TEACHER) Actin (Smooth Muscle) Antibody 10 0 - 19 Units [facility] ([employer]) Comment: Negative 0 - 19 Weak positive 20 - 30 Moderate to strong positive >30 Actin Antibodies are found in 52-85% of patients with autoimmune hepatitis or chronic active hepatitis and in 22% of patients with primary biliary cirrhosis. Mitochondrial M2 Antibody <20.0 0.0 - 20.0 Units [facility] ([employer]) Comment: Negative 0.0 - 20.0 Equivocal 20.1 - 24.9 Positive >24.9 Mitochondrial (M2) Antibodies are found in 90-96% of patients with primary biliary cirrhosis. 10/04/2011 1:58 PM INDUSTRIAL PSYCHOLOGY TEACHER 10/04/2011 9:09 PM INDUSTRIAL PSYCHOLOGY TEACHER Narrative [facility] [employer]) - 10/05/2011 4:16 PM INDUSTRIAL PSYCHOLOGY TEACHER Performed at: [address] [place] [phone] Hyperbaric Nurse: Laura Ibanez MD, Phone: [phone] Historical Provider LAB - CHEMISTRY O RDERABLES Performing Organization Address [facility] de Phone Number [facility] [employer]) * MICROSOMAL ANTIBODY LIVER/KIDNEY (10/04/2011 1:58 PM INDUSTRIAL PSYCHOLOGY TEACHER) Liver-Kidney Microsomal Antibody 1.5 0.0 - 20.0 Units [facility] ([employer]) Comment: Negative 0.0 - 20.0 Equivocal 20.1 - 24.9 Positive >24.9 LKM type 1 antibodies are detected in patients with autoimmune hepatitis type 2 and in up to 8% of patients with chronic HCV infection. 10/04/2011 1:58 PM INDUSTRIAL PSYCHOLOGY TEACHER 10/04/2011 9:09 PM INDUSTRIAL PSYCHOLOGY TEACHER Narrative [facility] [employer]) - 10/05/2011 4:16 PM INDUSTRIAL PSYCHOLOGY TEACHER Performed at: [address] [place] [address] [phone] Hyperbaric Nurse: Laura Ibanez MD, Phone: [phone] Historical Provider LAB - CHEMISTRY O RDERABLES Performing Organization Address [facility] Co de Phone Number [facility]) * DNA ANTIBODY DOUBLE STRANDED (10/04/2011 1:58 PM INDUSTRIAL PSYCHOLOGY TEACHER) Only the most recent of2 resultswithin the time period is included. [facility] dsDNA Antibody 1 0 - 9 IU/mL [facility]) Comment: Negative <5 Equivocal 5 - 9 Positive >9 10/04/2011 1:58 PM INDUSTRIAL PSYCHOLOGY TEACHER 10/04/2011 9:09 PM INDUSTRIAL PSYCHOLOGY TEACHER Narrative [facility]) - 10/05/2011 4:16 PM INDUSTRIAL PSYCHOLOGY TEACHER Performed at: [address] [place] [address] [phone] Hyperbaric Nurse: Laura Ibanez MD, Phone: [phone] Historical Provider LAB - HEMATOLOGY ORDERABLES Performing Organization Address [facility] Co de Phone Number [facility]) * (ABNORMAL) RIKKI BLOOD SCREEN (09/26/2011 5:03 PM INDUSTRIAL PSYCHOLOGY TEACHER) Only the most recent of2 resultswithin the time period is included. [facility] RIKKI Direct Positive(A ) Negative [facility]) 09/26/2011 5:03 PM INDUSTRIAL PSYCHOLOGY TEACHER 09/26/2011 10:05 PM INDUSTRIAL PSYCHOLOGY TEACHER Narrative [facility]) - 09/28/2011 2:23 PM INDUSTRIAL PSYCHOLOGY TEACHER Performed at: [address] [place] [address] [phone] Hyperbaric Nurse: Laura Ibanez MD, Phone: [phone] Historical Provider LAB - CHEMISTRY O RDERABLES Performing Organization Address City/[facility] Co de Phone Number [facility]) * HIV-1 HIV-2 ANTIBODY W REFLX HIV1 WB (09/26/2011 5:03 PM INDUSTRIAL PSYCHOLOGY TEACHER) Only the most recent of2 resultswithin the time period is included. [facility] HIV-1/O/2 Antibody Index Value <1.00 <1.00 [facility]) Comment:Index Value: Specime n reactivity relative to the negative cutoff. HIV-1/O/2 Antibody Qualitative Non Reactive Non Reactive [facility]) 09/26/2011 5:03 PM INDUSTRIAL PSYCHOLOGY TEACHER 09/26/2011 10:05 PM INDUSTRIAL PSYCHOLOGY TEACHER Narrative [facility]) - 09/28/2011 2:23 PM INDUSTRIAL PSYCHOLOGY TEACHER Performed at: [address] [place] [address] [phone] Hyperbaric Nurse: Laura Ibanez MD, Phone: [phone] Historical Provider LAB - CHEMISTRY O RDERABLES Performing Organization Address [facility] Co de Phone Number [facility]) * HEPATITIS C RIBA CONFIRMATION (09/26/2011 5:03 PM INDUSTRIAL PSYCHOLOGY TEACHER) Only the most recent of2 resultswithin the time period is included. Hepatitis C Antibody <0.1 0.0 - 0.9 s/co ratio [facility]) Comment: Negative Not infected with HCV, unless recent infection is suspected or other evidence exists to indicate HCV infection. 09/26/2011 5:03 PM INDUSTRIAL PSYCHOLOGY TEACHER 09/26/2011 10:05 PM INDUSTRIAL PSYCHOLOGY TEACHER Narrative [facility]) - 09/28/2011 2:23 PM INDUSTRIAL PSYCHOLOGY TEACHER Performed at: [address] [place] [address] [phone] Hyperbaric Nurse: Laura Ibanez MD, Phone: [phone] Historical Provider LAB - SEROLOGY OR DERABLES Performing Organization Address [facility] Co de Phone Number [facility]) * FACTOR VII ASSAY (09/26/2011 5:03 PM INDUSTRIAL PSYCHOLOGY TEACHER) Factor VII Activity 119 50 - 150 % [facility]) 09/26/2011 5:03 PM INDUSTRIAL PSYCHOLOGY TEACHER 09/26/2011 10:05 PM INDUSTRIAL PSYCHOLOGY TEACHER Narrative [facility]) - 09/28/2011 2:23 PM INDUSTRIAL PSYCHOLOGY TEACHER Performed at: [address] [place], [place] [address], [place] [phone] Hyperbaric Nurse: Joseph Wick MD, Phone: [phone] Historical Provider LAB - COAGULATION ORDERABLES Performing Organization Address [facility] de Phone Number [facility] * FACTOR V ASSAY (09/26/2011 5:03 PM INDUSTRIAL PSYCHOLOGY TEACHER) Pathologist [facility] Factor V Activity 78 60 - 140 % [facility]) 09/26/2011 5:03 PM INDUSTRIAL PSYCHOLOGY TEACHER 09/26/2011 10:05 PM INDUSTRIAL PSYCHOLOGY TEACHER Narrative [facility] ([facility]) - 09/28/2011 2:23 PM INDUSTRIAL PSYCHOLOGY TEACHER Performed at: [address] [place] [address] [phone] Hyperbaric Nurse: Joseph Wick MD, Phone: [phone] Historical Provider LAB - COAGULATION ORDERABLES Performing Organization Address [facility] Phone Number [facility]) * HELICOBACTER PYLORI ANTIBODY IGG (09/26/2011 5:03 PM INDUSTRIAL PSYCHOLOGY TEACHER) Only the most recent of2 resultswithin the time period is included. Pathologist [facility] Helicobacter pylori Antibody IgG <0.9 0.0 - 0.8 U/mL [facility]) Comment: Negative <0.9 Indeterminate 0.9 - 1.0 Positive >1.0 09/26/2011 5:03 PM INDUSTRIAL PSYCHOLOGY TEACHER 09/26/2011 10:05 PM INDUSTRIAL PSYCHOLOGY TEACHER Narrative [facility] ([facility]) - 09/28/2011 2:23 PM INDUSTRIAL PSYCHOLOGY TEACHER Performed at: [address] [place] [address] [phone] Hyperbaric Nurse: Laura Ibanez MD, Phone: [phone] Historical Provider LAB - CHEMISTRY O RDERABLES Performing Organization Address [facility] Co de Phone Number [facility]) * PLATELET ASSOCIATED ANTIBODY DIRECT PANEL (09/26/2011 5:03 PM INDUSTRIAL PSYCHOLOGY TEACHER) Only the most recent of2 resultswithin the time period is included. Pathologist [facility] HLA Antibody Screen Negative Negative [facility] ([facility]) Other Negative Negative [facility] (BEAKER) Other Negative Negative [facility] (BEAKER) Other Negative Negative [facility] (BEAKER) 09/26/2011 5:03 PM INDUSTRIAL PSYCHOLOGY TEACHER 09/26/2011 10:05 PM INDUSTRIAL PSYCHOLOGY TEACHER Narrative [facility] ([facility]) - 09/28/2011 2:23 PM INDUSTRIAL PSYCHOLOGY TEACHER Performed at: - [address] [phone] Hyperbaric Nurse: Joseph Wick MD, Phone: [phone] Historical Provider LAB - CHEMISTRY O RDERABLES [facility] ([facility]) * PATHOLOGY PERIPHERAL SMEAR REVIEW (09/26/2011 5:03 PM INDUSTRIAL PSYCHOLOGY TEACHER) Pathologist [facility] WBC [facility] ([facility]) Comment: Few lymphocytes appear reactive. Smudge cells present RBC CANCELED [facility] ([facility]) Comment:Result canceled by t rizwan ancillary Comment Platelet Thrombocytop enia. [facility] ([facility]) Comment:Occasional large dallas telets observed. Comment Hematology [facility] ([facility]) Comment: No major morphologic abnormalities seen. Correlation and Clinically appropriate follow up suggested. Cellular Degeneration Noted. Pathologist [facility] ([facility]) Comment: THROMBOPENIA; R/O ITP,THERAPY,HYPERSPLENISM REVIEWED BY Ricardo ADKINS M.D.09/28/2011 SP 09/26/2011 5:03 PM INDUSTRIAL PSYCHOLOGY TEACHER 09/26/2011 10:05 PM INDUSTRIAL PSYCHOLOGY TEACHER Narrative [facility] (BEAKER) - 09/28/2011 2:23 PM INDUSTRIAL PSYCHOLOGY TEACHER Performed at: [address] [phone] Hyperbaric Nurse: Jayla Grimm MD, Phone: [phone] Performed at: - [address] [phone] Hyperbaric Nurse: Laura Ibanez MD, Phone: [phone] Historical Provider LAB - PATHOLOGY/C YTOLOGY ORDERABLES Performing Organization Address [facility] Co de Phone Number [facility] * HELICOBACTER PYLORI ANTIBODY IGM (09/26/2011 5:03 PM INDUSTRIAL PSYCHOLOGY TEACHER) Only the most recent of2 resultswithin the time period is included. Helicobacter pylori Antibody IgM <0.80 0.00 - 0.79 index [facility]) Comment: Negative <0.80 Equivocal 0.80 - 1.19 Positive >1.19 Current studies suggest that H. pylori IgM testing should be performed concomitantly with H. pylori IgA and/or IgG tests to support a diagnosis of Helicobacter pylori infection. For research use only, not for use in clinical diagnostic procedures. 09/26/2011 5:03 PM INDUSTRIAL PSYCHOLOGY TEACHER 09/26/2011 10:05 PM INDUSTRIAL PSYCHOLOGY TEACHER Narrative [facility]) - 09/28/2011 2:23 PM INDUSTRIAL PSYCHOLOGY TEACHER Performed at: [address] [place] [address] [phone] Hyperbaric Nurse: Laura Ibanez MD, Phone: [phone] Historical Provider LAB - SEROLOGY OR DERABLES Performing Organization Address [facility] de Phone Number [facility] * RETIC COUNT (09/26/2011 5:03 PM INDUSTRIAL PSYCHOLOGY TEACHER) Only the most recent of2 resultswithin the time period is included. Reticulocyte % 1.3 0.5 - 3.0 % [facility]) 09/26/2011 5:03 PM INDUSTRIAL PSYCHOLOGY TEACHER 09/26/2011 10:05 PM INDUSTRIAL PSYCHOLOGY TEACHER Narrative [facility]) - 09/28/2011 2:23 PM INDUSTRIAL PSYCHOLOGY TEACHER Performed at: [address] [place] [address] [phone] Hyperbaric Nurse: Laura Ibanez MD, Phone: [phone] Historical Provider LAB - HEMATOLOGY ORDERABLES Performing Organization Address City/[facility] Co de Phone Number [facility] * (ABNORMAL) LDH BLOOD (09/26/2011 5:03 PM INDUSTRIAL PSYCHOLOGY TEACHER) Only the most recent of2 resultswithin the time period is included. Pathologist [facility] LDH Total 232(H) 0 - 225 IU/L [facility] ([facility]) 09/26/2011 5:03 PM INDUSTRIAL PSYCHOLOGY TEACHER 09/26/2011 10:05 PM INDUSTRIAL PSYCHOLOGY TEACHER Narrative [facility] ([facility]) - 09/28/2011 2:23 PM INDUSTRIAL PSYCHOLOGY TEACHER Performed at: [address] [place] [address] [phone] Hyperbaric Nurse: Laura Ibanez MD, Phone: [phone] Historical Provider LAB - CHEMISTRY [place] PARR Performing Organization Address [facility]/ZIP Co de Phone Number [facility] ([facility]) * VITAMIN B12 (09/26/2011 4:58 PM INDUSTRIAL PSYCHOLOGY TEACHER) Pathologist [facility] Vitamin B12 442 211 - 946 pg/mL [facility]) Venous blood specimen (specimen) 09/26/2011 4:58 PM INDUSTRIAL PSYCHOLOGY TEACHER 09/26/2011 9:53 PM INDUSTRIAL PSYCHOLOGY TEACHER Narrative [facility] ([facility]) - 09/27/2011 5:14 AM INDUSTRIAL PSYCHOLOGY TEACHER Preferred Lab:->[facility] Performed at: [facility] [phone] Hyperbaric Nurse: Laura Ibanez MD, Phone: [phone] Juan Ha MD LAB - CHEMISTRY SWETHA CHAPPELL [facility] ([facility]) * LAB HISTORICAL RESULTS-ONBASE (08/09/2011) Only the most recent of4 resultswithin the time period is included. 08/09/2011 Historical Provider LAB - CHEMISTRY [place] P[facility] * METHYLMALONIC ACID BLOOD (08/05/2011 10:03 AM CDT) Methylmalonic Acid 171 73 - 376 nmol/L [facility] ([employer]ER[facility]ER) Comment: The reference range for methylmalonic acid has been set at +3sd above the mean for healthy blood bank donors. In the clinical assessment of patients with megaloblastic anemias a cutoff of +3sd provides greater specificity in the diagnosis of the vitamin deficiency states, despite the sacrifice of some sensitivity. 08/05/2011 10:0 3 AM CDT 08/05/2011 6:09 PM CDT Narrative [facility] ([facility]) - 08/09/2011 12:18 PM CDT Performed at: [address] [place] [address] [phone] Hyperbaric Nurse: Joseph Wick MD, Phone: [phone] Specimen Comment: A courtesy copy of this report has been sent to Specimen Comment: [phone]. Juan Ha MD LAB - CHEMISTRY SWETHA CHAPPELL [facility] ([facility]) Care Teams Lamination Builder Relationship Specialty Start Date End Date Juan Ha MD PCP - General 07/04/16 Michelle Barbosa, cloth desizing range tenderScreed Person 02/26/19 Juan Joshi I, OD [address] [place] [phone] Accounting Instructor Low Sales Floor Manager 12/21/21 [facility] Sivan Marshall [address] [place] [address] 12/21/21
--- OUTSIDE RECORDS SUMMARY | 2025-01-27 16:17 | XMS_ITS ---
Author Name [facility] [place] Organization [facility] [place] [place] Address [address] [place] [address] Care Team Providers Care Behavioral Therapist Name Role Phone SERGEI NORWOOD Primary Care [...] PART B May 13, 2014 PART B [id number] Matty NERI FATIMAH PATIENT MEDICARE (WNR) MEDICARE (M) PART B May 13, 2014 PART B [id number] Matty NERI FATIMAH PATIENT MEDICARE (WNR) MEDICARE (M) PART A Aug 13, 2011 PART A [id number] Matty NERI FATIMAH PATIENT MEDICARE (WNR) MEDICARE (M) PART A Aug 13, 2011 PART A [id number] Matty NERIIEL PATIENT Selected Encounter This section includes the information on record at [place] for the Encounter. Date/Time Encounter Type Encounter Description Reason Pro vider Source Jul 10, 2024 05:51 AM Outpatient Encounter COMMUNITY CARE CONSULT IHE Encounter Template Text not used by VA Plan of Treatment: Future Appointments (+ 6 months) and Future Tests (+/- 45 days) The Plan of Treatment section includes future care activities for the [facility] This section includes future appointments and future orders which are active, pending or scheduled. Future Appointments This section includes appointments that were scheduled to occur 6 months from the date of the Encounter, up to a maximum of 20 appointments. The data comes from all [place] treatment facilities. Appointment Date/Time Appointment Type Appointme nt Facility Name Jul 23, 2024 10:45 AM AMBULATORY - MEDICINE [facility] Aug 07, 2024 01:40 PM AMBULATORY - MEDICINE [facility] Aug 08, 2024 01:00 PM AMBULATORY - NONE [facility] Aug 14, 2024 03:15 PM AMBULATORY - MEDICINE [facility] Aug 20, 2024 02:00 PM AMBULATORY - SURGERY . [facility] Sep 03, 2024 10:45 AM AMBULATORY - MEDICINE [facility] Sep 09, 2024 10:00 AM AMBULATORY - NONE [facility] Sep 16, 2024 10:45 AM AMBULATORY - MEDICINE [facility] Sep 27, 2024 02:20 PM [facility] SUR[facility]ERY [facility] Oct 14, 2024 01:00 PM AMBULATORY - SURGERY [facility] Oct 16, 2024 02:45 PM AMBULATORY - MEDICINE [facility] Oct 17, 2024 10:30 AM AMBULATORY - REHAB MEDICIN E [facility] Oct 25, 2024 02:00 PM AMBULATORY - SURGERY [facility] Nov 22, 2024 10:30 AM AMBULATORY - REHAB MEDICIN E [facility] Nov 25, 2024 11:00 AM AMBULATORY - [facility] Lab Results: +/- 30 days of the encounter This section includes the Chemistry and Hematology Lab Results on record with [place] for the patient. Radiology Reports and Pathology Reports are provided separately, in subsequent sections. Lab Results This section contains the Chemistry/Hematology Results that were resulted 30 days before or 30 daysafter the date of the Encounter. Date/Time Source Result Type Result - Unit Interpretation Reference Range Comment Jun 21, 2024 10:44 AM [facility] URINE DRUG SCREEN (STL) Specimen Type: URINE Comment: The cut-off value for this test was laboratory developed and its performance characteristics confirmed by the [facility] laboratory thru method comparison with reference laboratory and medication chart review. The laboratory is regulated under CLIA as qualified to perform high-complexity testing. This test is used for clinical purposes in conjunction with other laboratory tests. Ordering Provider: CASH WOLFE Report Released Date/Time: May 28, 2024 02:02 PM Reporting Lab: [place] [id number] [facility] [address] Performing Lab: [address] [address] ETHANOL Negative mg/dL 0-20 AMPHET/METHAMPHE TAMINE Negative ng/mL COCAINE METABOLITES Negative ng/mL BENZODIAZEPINES (STL) Negative ng/mL CANNABINOIDS Negative ng/mL METHADONE Negative ng/mL OPIATES POSITIVE ng/mL CREATININE URINE/OTHERS 67.2 mg/dL 63-166 OXYCODONE (FKOBD-BPY-EO) Negative ng/mL BUPRENORPHINE (STL-PB-MA) Negative ng/mL FENTANYL (STL-PB) Negative ng/mL Jun 21, 2024 10:40 AM [facility] HGA1C Specimen Type: BLOOD No comment entered. Ordering Provider: ALFREDITO MALDONADO Report Released Date/Time: Jun 19, 2024 03:02 PM Reporting Lab: [facility] [address] [facility] [address] Performing Lab: [address] [address] HGA1C 6.4 H 4.0-6.0 Jun 21, 2024 10:40 AM [facility] TSH (MA-PB) Specimen Type: SERUM No comment entered. Ordering Provider: ALFREDITO MALDONADO Report Released Date/Time: Jun 19, 2024 03:02 PM Reporting Lab: [address] [address] Performing Lab: [facility] [address] [facility] [address] TSH 1.328 u[IU]/mL 0.47-5 Jun 21, 2024 10:40 AM [facility] URINALYSIS (STL-PB) Specimen Type: URINE No comment entered. Ordering Provider: ALFREDITO MALDONADO Report Released Date/Time: Jun 19, 2024 03:02 PM Reporting Lab: [facility] [address] [facility] [address] Performing Lab: [address] [address] URINE COLOR Light-Yellow Yellow U.BILIRUBIN Negative mg/dL Negative U.PH 6.0 5.0-8.0 APPEARANCE Clear Clear U.NITRITE Negative mg/dL Negative URN.GLUCOSE 50 mg/dL H Negative URN.PROTEIN Negative mg/dL Neg ative-2 0 URN.UROBILINOGEN Normal mg/dL Normal URN.BLOOD Negative mg/dL Negat guerline-T race URN.KETONES Negative mg/dL Neg ative-T race URN.LEUK.EST. Negative mg/dL N egative-T race URN.SPECIFIC GRAVITY 1.015 1.005-1.02 9 Jun 21, 2024 10:40 AM [facility] COMPREHENSIVE METABOLIC PANEL Specimen Type: PLASMA Comment: No hemolysis noted. Ordering Provider: ALFREDITO MALDONADO Report Released Date/Time: Jun 19, 2024 03:02 PM Reporting Lab: [facility] [address] [facility] [address] Performing Lab: [place] [address] [facility] [address] CREATININE 1.03 mg/dL 0.7-1.3 UREA NITROGEN 15.3 mg/dL 9.0-25.0 GLUCOSE 244 mg/dL H 72-99 SODIUM 139 meq/L 136-145 POTASSIUM 4.6 meq/L 3.5-5 CHLORIDE 106 meq/L 98-107 CARBON DIOXIDE 24 meq/L 22-31 CALCIUM 9.7 mg/dL 8.4-10.4 PROTEIN 7.1 g/dL 6-8.6 ALBUMIN 4.3 g/dL 3.4-5 TOTAL BILIRUBIN 1.0 mg/dL 0.2-1.2 ALKALINE PHOSPHATASE 65 U/L 40-150 AST/SGOT 18 U/L 5-34 ALT/SGPT 22 U/L 8-40 EGFR (CKD-EPI 2020) 74.8 >60 Jun 21, 2024 10:40 AM [facility] CBC Specimen Type: BLOOD No comment entered. Ordering Provider: ALFREDITO MALDONADO Report Released Date/Time: Jun 19, 2024 03:02 PM Reporting Lab: [facility] [address] [facility] [address] Performing Lab: [facility] [address] [facility] [address] WBC 7.7 10*3/uL 3.6-11.2 RBC 4.45 10*6/uL 4.10-5.70 HGB 13.7 g/dL 13.1-16.8 HCT 40.7 38.2-48.4 MCV 91.5 fL 80.0-100.0 MCH 30.8 pg 27.0-34.0 MCHC 33.7 g/dL 33.0-36.0 PLT 138 10*3/uL L 150-400 MPV 11.0 fL 7.5-11.2 RDW 13.5 11.8-15.1 LYMPHOCYTES, AUTO % 16 MONOCYTES, AUTO % 4 NEUTROPHILS, AUTO % 74 EOSINOPHILS, AUTO % 5 BASOPHILS, AUTO % 0 LYMPHOCYTES, ABSOLUTE 1.24 10*3/uL 0.77-4.50 MONOCYTES, ABSOLUTE 0.31 10*3/uL 0.19-0.80 NEUTROPHILS, ABSOLUTE 5.71 10*3/uL 2.10-8.00 EOSINOPHILS, ABSOLUTE 0.39 10*3/uL 0.00-0.60 BASOPHILS, ABSOLUTE 0.02 10*3/uL 0.00-0.[address]T FRACTION 4.9 1.0-7.0 Social History: Smoking Status (Most current) and Tobacco Use (All prior to encounter date) This section includes the most current, and the historical, smoking and tobacco- related health factors from the [place] facility where the Encounter took place. Current Smoking Status This section includes the most current smoking, or tobacco-related health factor, from the [place] facility where the Encounter took place. Date/Time Current Smoking Status Comment Facil ity May 26, 2021 04:12 PM ORYX ADMIT TOBACCO SCREEN NO [facility] Encounter Notes: All associated encounter notes This section contains the clinical notes associated to the Encounter. Date/Time Encounter Note(s) Provider Source Jul 11, 2024 05:54 AM ADDENDUM: LOCAL TITLE: Addendum STANDARD TITLE: ADDENDUM DATE OF NOTE: JUL 11, 2024@05:54:57 ENTRY DATE: JUL 11, 2024@05:54:58 AUTHOR: PAUL HEARD EXP COSIGNER: URGENCY: STATUS: COMPLETED STL DENTAL SERVICE/COMMUNITY CARE RFS DETERMINATION The requested treatment: AUTHORIZED SUBMITTED. AUTHORIZED TREATMENT: D7140 Routine Ext or exposed root #18,20,21,22,23,24,25,26,2 7,28,29,30,31 Refer to Oral surgeon ACTION STEPS * RFS/ADA Dental Claim Form external records reviewed. * New consult(s) placed with corresponding SEOC(s). * [place] to continue dental treatment with community provider. AUTHORIZED PROVIDER: Referral to oral surgeon. COMMUNITY CARE COORDINATION NOTES Please continue 's care for authorized treatment /fransisco/ PAUL HEARD DMD DENTIST Signed: 07/11/2024 05:55 Receipt Acknowledged By: 07/11/2024 07:36 /fransisco/ NORBERT CERON [facility] CARE RN --- Original Document --- 07/10/24 COMMUNITY CARE-REQUEST FOR SERVICE NOTE STL: Request for Services (RFS) documentation has been sent for scanning to [facility] Community Care Consult: COMMUNITY CARE-stl den gen Consult No: [id number] Date sent to scanning: Jun A Request for Service (RFS) form [id number] has been received which includes the following: Care Requested: D7140 Routine Ext or exposed root #18,20,21,22,23,24,25,26,2 7,28,29,30,31 Refer to Oral surgeon ICD-10 Dx code: k02.9 Date VA received request: Jun Date service required: Jun Requesting Community Provider Information: [facility] [address] [address] [place] Specialty: Dentist - Wind Turbine Technician Network: [place] [address] /fransisco/ CHANDAN ARMENDARIZ ADVANCE MANAGER DEVELOPMENT Signed: 07/10/2024 05:53 Receipt Acknowledged By: 07/11/2024 05:54 /fransisco/ PAUL HEARD DMD DENTIST PAUL HEARD [facility] Jul 10, 2024 05:51 AM NONVA NOTE: LOCAL TITLE: COMMUNITY CARE-REQUEST FOR SERVICE NOTE STL STANDARD TITLE: NONVA NOTE DATE OF NOTE: JUL 10, 2024@05:51 ENTRY DATE: JUL 10, 2024@05:51:07 AUTHOR: CHANDAN ARMENDARIZ EXP COSIGNER: URGENCY: STATUS: COMPLETED COMMUNITY CARE-REQUEST FOR SERVICE NOTE STL Has ADDENDA Request for Services (RFS) documentation has been sent for scanning to [facility] Community Care Consult: COMMUNITY CARE-stl den gen Consult No: [id number] Date sent to scanning: Jun A Request for Service (RFS) form [id number] has been received which includes the following: Care Requested: D7140 Routine Ext or exposed root #18,20,21,22,23,24,25,26,2 7,28,29,30,31 Refer to Oral surgeon ICD-10 Dx code: k02.9 Date VA received request: Jun Date service required: Jun Requesting Community Provider Information: [facility] [address] [address] [place] Specialty: Dentist - Wind Turbine Technician Network: [place] [address] /fransisco/ CHANDAN ARMENDARIZ ADVANCE MANAGER DEVELOPMENT Signed: 07/10/2024 05:53 Receipt Acknowledged By: 07/11/2024 05:54 /fransisco/ PAUL HEARD DMD DENTIST 07/11/2024 ADDENDUM STATUS: COMPLETED STL DENTAL SERVICE/COMMUNITY CARE RFS DETERMINATION The requested treatment: AUTHORIZED SUBMITTED. AUTHORIZED TREATMENT: D7140 Routine Ext or exposed root #18,20,21,22,23,24,25,26,2 7,28,29,30,31 Refer to Oral surgeon ACTION STEPS * RFS/ADA Dental Claim Form external records reviewed. * New consult(s) placed with corresponding SEOC(s). * to continue dental treatment with community provider. AUTHORIZED PROVIDER: Referral to oral surgeon. COMMUNITY CARE COORDINATION NOTES Please continue 's care for authorized treatment /fransisco/ PAUL HEARD DMD DENTIST Signed: 07/11/2024 05:55 Receipt Acknowledged By: * AWAITING SIGNATURE * [facility]BERT CERON [facility]
--- OUTSIDE RECORDS SUMMARY | 2025-01-27 16:17 | XMS_ITS | Encounter Summary ---
Author Organization [facility] Address [address] [place] [address] Phone Care Team Providers Care Apartment Leasing Specialist Name Role Phone Juan Ha MD Primary Care Provider [phone] Blessing Carpio RN Unavailable [phone] Unknown, Notinfile Primary Care Provider Unavail able No, Physician Primary Care Provider [phone] Demetrius Espitia MD Unavailable [phone] Henry Barton MD Unavailable [phone] Encounter Details Date Type Department Care Team (Late st Contact Info) Description 07/02/2021 Orders Only [facility] NEUROMUSCLE Scanning, Provider Social History Tobacco Use Types Packs/Day Years Used Date Smoking Tobacco: Never Sex and Gender Information Value Date Recorded Sex Assigned at Not on file 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 Gender Identity Not on file Sexual Orientation [...] on filedocumented in this encounter Care Teams Apartment Leasing Specialist Relationship Specialty Start Date End Date Juan Ha MD [address] [place] [address] PCP - General 03/13/18 06/19/23 Unknown, Notinfile PCP - General 06/20/23 07/25/23 No, Physician PCP - General 07/26/23 Blessing Carpio, RN [address] [place] [address] Nurse Navigator 03/04/22 08/09/22 Demetrius Espitia MD Radiation Oncologist Radiation Oncology 07/26/23 Henry Barton MD [address] [place] [address] Consulting Physician Urology 07/26/23 documented as of this encounter
--- OUTSIDE RECORDS SUMMARY | 2025-01-27 16:17 | XMS_ITS | Encounter Summary ---
Author Name [facility] [place] Organization [facility] [place] Address [address] [place] [address] Care Team Providers Care Production Maintenance Technician Name Role Phone SERGEI NORWOOD Primary Care [...] PART B May 13, 2014 PART B [id number] [id number] Matty NERI FATIMAH PATIENT MEDICARE (WNR) MEDICARE (M) PART B May 13, 2014 PART B [id number] Matty NERI FATIMAH PATIENT MEDICARE (WNR) MEDICARE (M) PART A Aug 13, 2011 PART A [id number] 40A Matty NERI FATIMAH PATIENT MEDICARE (WNR) MEDICARE (M) PART A Aug 13, 2011 PART A [id number] Matty NERIIEL PATIENT Selected Encounter This section includes the information on record at [place] for the Encounter. Date/Time Encounter Type Encounter Description Reason Pro vider Source Jul 22, 2024 09:36 AM Outpatient Encounter COMMUNITY CARE CONSULT IHE Encounter Template Text not used by VA Plan of Treatment: Future Appointments (+ 6 months) and Future Tests (+/- 45 days) The Plan of Treatment section includes future care activities for the patient from all [facility]. This section includes future appointments and future orders which are active, pending or scheduled. Future Appointments This section includes appointments that were scheduled to occur 6 months from the date of the Encounter, up to a maximum of 20 appointments. The data comes from all [facility]. Appointment Date/Time Appointment Type Appointme nt Facility Name Jul 23, 2024 10:45 AM AMBULATORY - MEDICINE [facility] Aug 07, 2024 01:40 PM AM[facility]ULATORY [facility]ICINE [facility] Aug 08, 2024 01:00 PM AMBULATORY - NONE [facility] Aug 14, 2024 03:15 PM AMBULATORY - MEDICINE [facility] Aug 20, 2024 02:00 PM AMBULATORY - SURGERY [facility] Sep 03, 2024 10:45 AM AMBULATORY - MEDICINE [facility] Sep 09, 2024 10:00 AM AMBULATORY - NONE [facility] Sep 16, 2024 10:45 AM AMBULATORY - MEDICINE [facility] Sep 27, 2024 02:20 PM AMBULATORY - SURGERY [facility] Oct 14, 2024 01:00 PM AMBULATORY - SURGERY [facility] Oct 16, 2024 02:45 PM AMBULATORY - MEDICINE [facility] Oct 17, 2024 10:30 AM AMBULATORY - RE[facility]AB MEDICIN [facility] Oct 25, 2024 02:00 PM AMBULATORY - SURGERY [facility] Nov 22, 2024 10:30 AM AMBULATORY - REHAB MEDICIN E [facility] Nov 25, 2024 11:00 AM AMBULATORY - REHAB MEDICIN E [facility] Jan 15, 2025 03:40 PM AMBULATORY - MEDICINE [facility] Active, Pending, and Scheduled Orders This section includes a listing of several types of active, pending, and scheduled orders, including clinic medications orders, diagnostic test orders, procedure orders and consult orders; where the start date of the order is 45 days before the date of the Encounter or 45 days after the date of theEncounter. The data comes from all [place] treatment facilities. Test Date/Time Test Type Test Details Facility Name Sep 02, 2024 12:00 AM Laboratory - Chemi stry Order URINE DRUG SCREEN (STL) URINE YELLOW SP [facility] Social History: Smoking Status (Most current) and Tobacco Use (All prior to encounter date) This section includes the most current, and the historical, smoking and tobacco- related health factors from the [place] facility where the Encounter took place. Current Smoking Status This section includes the most current smoking, or tobacco-related health factor, from the [place] facility where the Encounter took place. Date/Time Current Smoking Status Comment Facil ity May 26, 2021 04:12 PM ORYX ADMIT TOBACCO SCREEN NO [facility] Encounter Notes: All associated encounter notes This section contains the clinical notes associated to the Encounter. Date/Time Encounter Note(s) Provider Source Jul 22, 2024 04:47 PM ADDENDUM: LOCAL TITLE: Addendum STANDARD TITLE: ADDENDUM DATE OF NOTE: JUL 22, 2024@16:47:21 ENTRY DATE: JUL 22, 2024@16:47:22 AUTHOR: PAUL HEARD COSIGNER: URGENCY: STATUS: COMPLETED STL DENTAL SERVICE/COMMUNITY CARE RFS DETERMINATION The requested treatment: DENIED. DENIED TREATMENT: D0150 COMPREHENSIVE ORAL EVALUATION - NEW OR ESTAB D0210 INTRAORAL- COMPREHENSIVE SERIES OF RADIOGRAPH Rationale for Decision * [place] recently evaluated at [facility] o 06/28/24. Per note, will continue services at [place]. Adding Primary Dental Provider for awareness and to place RTC if indicated. /fransisco/ PAUL HEARD DMD DENTIST Signed: 07/22/2024 16:48 Receipt Acknowledged By: 07/23/2024 07:25 /fransisco/ Jean Rader DDS Staff Dentist 07/23/2024 08:07 /es/ NORBERT CERON [facility]ITY CARE RN --- Original Document --- 07/22/24 COMMUNITY CARE-REQUEST FOR SERVICE NOTE STL: Request for Services (RFS) documentation has been sent for scanning to [facility] Community Care Consult: COMMUNITY CARE-DENTAL Consult No: [id number] Date sent to scanning: Jul A Request for Service (RFS) form [id number] has been received which includes the following: Care Requested: D0150 COMPREHENSIVE ORAL EVALUATION - NEW OR ESTAB D0210 INTRAORAL- COMPREHENSIVE SERIES OF RADIOGRAPH ICD-10 Dx code: K02.9 Date VA received request: Jun Date service required: Jun Requesting Community Provider Information: [facility] [address] [address] [place] Specialty: Dentist - Rn Diabetes Network: [place] [address] // LEANNE FERNANDEZ Signed: 07/22/2024 09:38 PAUL HEARD [facility] Jul 22, 2024 09:36 AM NONVA NOTE: LOCAL TITLE: COMMUNITY CARE-REQUEST FOR SERVICE NOTE STL STANDARD TITLE: NONVA NOTE DATE OF NOTE: JUL 22, 2024@09:36 ENTRY DATE: JUL 22, 2024@09:36:18 AUTHOR: LEANNE FERNANDEZ EXP COSIGNER: URGENCY: STATUS: COMPLETED COMMUNITY CARE-REQUEST FOR SERVICE NOTE STL Has ADDENDA Request for Services (RFS) documentation has been sent for scanning to [facility] Community Care Consult: COMMUNITY CARE-DENTAL Consult No: [id number] Date sent to scanning: Jul A Request for Service (RFS) form [id number] has been received which includes the following: Care Requested: D0150 COMPREHENSIVE ORAL EVALUATION - NEW OR ESTAB D0210 INTRAORAL- COMPREHENSIVE SERIES OF RADIOGRAPH ICD-10 Dx code: K02.9 Date VA received request: Jun Date service required: Jun Requesting Community Provider Information: [address] [address] [place] Specialty: Dentist - Rn Diabetes Network: [facility] Region 2 /fransisco/ LEANNE FERNANDEZ Signed: 07/22/2024 09:38 07/22/2024 ADDENDUM STATUS: COMPLETED [facility] DENTAL SERVICE/COMMUNITY CARE RFS DETERMINATION The requested treatment: DENIED. DENIED TREATMENT: D0150 COMPREHENSIVE ORAL EVALUATION - NEW OR ESTAB D0210 INTRAORAL- COMPREHENSIVE SERIES OF RADIOGRAPH Rationale for Decision * recently evaluated at [facility] o 06/28/24. Per note, will continue services at [place]. Adding Primary Dental Provider for awareness and to place RTC if indicated. /fransisco/ PAUL HEARD DMD DENTIST Signed: 07/22/2024 16:48 Receipt Acknowledged By: * AWAITING SIGNATURE * JEAN RADER * AWAITING SIGNATURE * ODALYS SHAH * AWAITING SIGNATURE * NORBERT CERON GABRY'EL P [facility]
--- OUTSIDE RECORDS SUMMARY | 2025-01-27 16:17 | XMS_ITS ---
Author Name Department of [facility] Affairs ([place]) Organization Department of [facility] ([place]) Address [address] [place] [address] Care Team Providers Care Yard Spotter Name Role Phone SERGEI NORWOOD Primary Care [...] PART B May 13, 2014 PART B [id number] Matty NERI FATIMAH PATIENT MEDICARE (WNR) MEDICARE (M) PART B May 13, 2014 PART B [id number] Matty NERI FATIMAH PATIENT MEDICARE (WNR) MEDICARE (M) PART A Aug 13, 2011 PART A [id number] Matty NERI FATIMAH PATIENT MEDICARE (WNR) MEDICARE (M) PART A Aug 13, 2011 PART A [id number] Matty NERIIEL PATIENT Selected Encounter This section includes the information on record at [place] for the Encounter. Date/Time Encounter Type Encounter Description Reason Pro vider Source Oct 18, 2024 04:31 PM Outpatient Encounter GENERAL INTERNAL MEDICINE IHE Encounter Template Text not used by [place] Plan of Treatment: Future Appointments (+ 6 months) and Future Tests (+/- 45 days) The Plan of Treatment section includes future care activities for the patient from [facility] [place] [facility] This section includes future appointments and future orders which are active, pending or scheduled. Future Appointments This section includes appointments that were scheduled to occur 6 months from the date of the Encounter, up to a maximum of 20 appointments. The data comes from all [facility]. Appointment Date/Time Appointment Type Appointme nt Facility Name Oct 25, 2024 02:00 PM AMBULATORY - SURGERY [facility] Nov 22, 2024 10:30 AM AMBULATORY - REHAB MEDICIN E [facility] Nov 25, 2024 11:00 AM AMBULATORY - REHAB MEDICIN E [facility] Jan 15, 2025 03:40 PM AMBULATORY - MEDICINE [facility] Jan 28, 2025 02:00 PM AMBULATORY - SURGERY [facility] Feb 05, 2025 03:00 PM AMBULATORY - MEDICINE [facility] Feb 12, 2025 01:45 PM AMBULATORY - MEDICINE [facility] Feb 13, 2025 01:00 PM AMBULATORY - SURGERY [facility] Mar 05, 2025 11:15 AM AMBULATORY - REHAB MEDICIN [facility] March 26, 2025 11:20 AM AMBULATORY - SURGERY [facility] Apr 18, 2025 10:45 AM AMBULATORY - MEDICINE [facility] Active, Pending, and Scheduled Orders This section includes a listing of several types of active, pending, and scheduled orders, including clinic medications orders, diagnostic test orders, procedure orders and consult orders; where the start date of the order is 45 days before the date of the Encounter or 45 days after the date of theEncounter. The data comes from all [facility]. Test Date/Time Test Type Test Details Facility Name Oct 17, 2024 12:00 AM Laboratory - Chemi stry Order LIPID PANEL (STL) GREEN LI/HEP BLD/PLAS PLASMA SP [facility] Lab Results: +/- 30 days of the encounter This section includes the Chemistry and Hematology Lab Results on record with [facility] for the patient. Radiology Reports and Pathology Reports are provided separately, in subsequent sections. Lab Results This section contains the Chemistry/Hematology Results that were resulted 30 days before or 30 daysafter the date of the Encounter. Date/Time Source Result Type Result - Unit Interpretation Reference Range Comment Sep 27, 2024 03:[address] [facility] URINE DRUG SCREEN (STL) Specimen Type: URINE Comment: The cut-off value for Fentanyl was laboratory developed and its performance characteristics confirmed by the [facility] laboratory thru method comparison with reference laboratory and medication chart review. The laboratory is regulated under CLIA as qualified to perform high-complexity testing. Fentanyl is used for clinical purposes in conjunction with other laboratory tests. Ordering Provider: SCOTTIE BULLOCK Report Released Date/Time: Sep 26, 2024 09:24 AM Reporting Lab: [address] [id number] Performing Lab: [address] [id number] ETHANOL Negative mg/dL 0-20 AMPHET/METHAMPHE TAMINE Negative ng/mL COCAINE METABOLITES Negative ng/mL BENZODIAZEPINES (STL) Negative ng/mL CANNABINOIDS Negative ng/mL METHADONE Negative ng/mL OPIATES POSITIVE ng/mL CREATININE URINE/OTHERS 115.1 mg/dL 63-166 OXYCODONE (IJHDX-UBH-JZ) Negative ng/mL BUPRENORPHINE (STL-PB-[place]) Negative ng/mL FENTANYL (STL-PB) Negative ng/mL Sep 27, 2024 03:13 PM [facility] PROST. SPECIFIC AG.(PB-STL) Specimen Type: SERUM Comment: The listed sex of this patient may not be a typical indication for this test. Therefore, reference ranges or interpretive criteria listed may not be valid. Clinical correlation suggested. Ordering Provider: HARIS MCMULLEN Report Released Date/Time: Sep 27, 2024 02:58 PM Reporting Lab: [address] [id number] Performing Lab: [address] [phone] PROST. SPECIFIC AG.(PB-STL) 0.118 ng/mL 0-4 Social History: Smoking Status (Most current) and Tobacco Use (All prior to encounter date) This section includes the most current, and the historical, smoking and tobacco- related health factors from the [place] facility where the Encounter took place. Current Smoking Status This section includes the most current smoking, or tobacco-related health factor, from the [place] facility where the Encounter took place. Date/Time Current Smoking Status Comment Facil ity May 26, 2021 04:12 PM ORYX ADMIT TOBACCO SCREEN NO [facility] Encounter Notes: All associated encounter notes This section contains the clinical notes associated to the Encounter. Date/Time Encounter Note(s) Provider Source Jul 08, 2024 04:34 PM NONVA CONSULT: LOCAL TITLE: COMMUNITY CARE-CONSULT RESULT NOTE STL STANDARD TITLE: NONVA CONSULT DATE OF NOTE: JUL 08, 2024@16:34 ENTRY DATE: OCT 18, 2024@16:35:12 AUTHOR: CRISTHIAN MORTENSEN EXP COSIGNER: URGENCY: STATUS: COMPLETED The following Community Care consult has been completed. See scanned document for report. Date of Service: Jun Place where service occurred: [facility] director process improvement [facility] Community Care Consult Results Dental Comment: Surgical Community provider/Non-VA documentation associated with this consult has been previously incorporated into the medical record and is currently linked to the following progress note in CPRS: Note Title: COMMUNITY CARE-CONSULT RESULT NOTE STL Date of Note: 07/08/2024 Author: ALENA ZMIMERMAN Consult Number: [id number] /es/ CRISTHIAN MORTENSEN [facility] ADMINISTRATOR Signed: 10/18/2024 16:36 CRISTHIAN MORTENSEN [facility] Jul 08, 2024 04:31 PM NONVA CONSULT: LOCAL TITLE: COMMUNITY CARE-CONSULT RESULT NOTE STL STANDARD TITLE: NONVA CONSULT DATE OF NOTE: JUL 08, 2024@16:31 ENTRY DATE: OCT 18, 2024@16:32:08 AUTHOR: CRISTHIAN MORTENSEN EXP COSIGNER: URGENCY: STATUS: COMPLETED The following Community Care consult has been completed. See scanned document for report. Date of Service: Jun Place where service occurred: [facility] director process improvement [facility] Community Care Consult Results Dental Comment: Surgical Community provider/Non-VA documentation associated with this consult has been previously incorporated into the medical record and is currently linked to the following progress note in CPRS: Note Title: COMMUNITY CARE-CONSULT RESULT NOTE STL Date of Note: 07/08/2024 Author: ALENA ZIMMERMAN Consult Number: [id number] /es/ CRISTHIAN MORTENSEN [facility] ADMINISTRATOR Signed: 10/18/2024 16:33 CRISTHIAN MORTENSEN [facility]
--- OUTSIDE RECORDS SUMMARY | 2025-01-27 16:17 | XMS_ITS | Encounter Summary ---
Author Name [facility] [place] [facility] [facility] [place] Address [address] [place] [address] Care Team Providers Care Aircraft Instrument Engineer Name Role Phone SERGEI NORWOOD Primary Care [...] PART B May 13, 2014 PART B [id number] Matty NERI FATIMAH PATIENT MEDICARE (WNR) MEDICARE (M) PART B May 13, 2014 PART B [id number] Matty NERI FATIMAH PATIENT MEDICARE (WNR) MEDICARE (M) PART A Aug 13, 2011 PART A [id number] Matty NERI FATIMAH PATIENT MEDICARE (WNR) MEDICARE (M) PART A Aug 13, 2011 PART A [id number] Matty NERIIEL PATIENT Selected Encounter This section includes the information on record at [place] for the Encounter. Date/Time Encounter Type Encounter Description Reason Provider Source Aug 20, 2024 02:00 PM OFFICE O/P EST LOW 20 MIN PODIATRY ICD-10-CM L60.3 Nail dystrophy ANGELICA VERA [facility] Encounter Template Text not used by [facility] Assessments - Encounter Diagnoses This section includes the primary and secondary diagnoses documented for the Encounter. Date/Time Primary/Secondary Diagnosis Diagnosis Name Provider Source Aug 20, 2024 09:20 PM PRIMARY Nail dystrophy ANGELICA VERA [facility] Aug 20, 2024 09:20 PM SECONDARY Inflamed seborrheic keratosis ANGELICA VERA [facility] Aug 20, 2024 09:20 PM SECONDARY Other acquired deformities of unspecified foot ANGELICA VERA [facility] Aug 20, 2024 09:20 PM SECONDARY Type 2 diabetes mellitus with diabetic neuropathy, unsp JODYANGELICA L [facility] Plan of Treatment: Future Appointments (+ 6 months) and Future Tests (+/- 45 days) The Plan of Treatment section includes future care activities for the patient [facility] all [place] [facility]. This section includes future appointments and future orders which are active, pending or scheduled. Future Appointments This section includes appointments that were scheduled to occur 6 months from the date of the Encounter, up to a maximum of 20 appointments. The data comes from all [place] treatment facilities. Appointment Date/Time Appointment Type Appointme nt Facility Name Sep 03, 2024 10:45 AM AMBULATORY - MEDICINE [facility] Sep 09, 2024 10:00 AM AMBULATORY - NONE [facility] Sep 16, 2024 10:45 AM AMBULATORY - MEDICINE [facility] Sep 27, 2024 02:20 PM AMBULATORY - SURGERY [facility] Oct 14, 2024 01:00 PM AMBULATORY - SURGERY [facility] Oct 16, 2024 02:45 PM AMBULATORY - MEDICINE [facility] Oct 17, 2024 10:30 AM AMBULATORY - REHAB MEDICIN E [facility] Oct 25, 2024 02:00 PM AMBULATORY - SURGERY [facility] Nov 22, 2024 10:30 AM AMBULATORY - REHAB MEDICIN E [facility] Nov 25, 2024 11:00 AM AMBULATORY - REHAB MEDICIN E [facility] Jan 15, 2025 03:40 PM AMBULATORY - MEDICINE [facility] Jan 28, 2025 02:00 PM AMBULATORY - SURGERY [facility] Feb 05, 2025 03:00 PM AMBULATORY - MEDICINE [facility] Feb 12, 2025 01:45 PM AMBULATORY - MEDICINE [facility] Feb 13, 2025 01:00 PM AMBULATORY - SURGERY [facility] Active, Pending, and Scheduled Orders This section includes a listing of several types of active, pending, and scheduled orders, including clinic medications orders, diagnostic test orders, procedure orders and consult orders; where the start date of the order is 45 days before the date of the Encounter or 45 days after the date of theEncounter. The data comes from all [place] treatment facilities. Test Date/Time Test Type Test Details Facility Name Sep 02, 2024 12:00 AM Laboratory - Chemi stry Order URINE DRUG SCREEN (STL) URINE YELLOW SP [facility] Social History: Smoking Status (Most current) and Tobacco Use (All prior to encounter date) This section includes the most current, and the historical, smoking and tobacco- related health factors from the [place] facility where the Encounter took place. Current Smoking Status This section includes the most current smoking, or tobacco-related health factor, from the [place] facility where the Encounter took place. Date/Time Current Smoking Status Comment Facil ity Apr 29, 2024 11:00 AM VA-TOBACCO FORMER USER [facility] Tobacco Use History This section includes a history of the smoking, or tobacco-related health factors, that were collected on or before the date of the Encounter. The data comes from the [place] facility where the Encounter took place. Date/Time Smoking Status/Tobacco Use Comment F acharsh Apr 29, 2024 11:00 AM [place]-TOBACCO QUIT 15 YRS OR MORE [facility] Encounter Notes: All associated encounter notes This section contains the clinical notes associated to the Encounter. Date/Time Encounter Note(s) Provider Source Aug 20, 2024 07:09 AM PODIATRY NOTE: LOCAL TITLE: PODIATRY NOTE STANDARD TITLE: PODIATRY NOTE DATE OF NOTE: AUG 20, 2024@07:09 ENTRY DATE: AUG 20, 2024@07:09:53 AUTHOR: ANGELICA VERA COSIGNER: URGENCY: STATUS: COMPLETED Last clinic appt on February 28 SUBJECTIVE: This 78 year old noninsulin dependent male patient with history of neuropathic pain to the feet presents for nail palliation. diagnosed with prostate cancer and underwent radiation treatment. The pt is not requesting footwear. 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 Patient denies smoking. Patient drinks [...] 14) TAPE,MEDIPORE H SOFT 2IN X 10YD 3M#2812 USE/APPLY 1 ACTIVE ROLL TO AFFECTED AREA(S) [...] ACTIVE TO AFFECTED EAR(S) TWICE A DAY Objective: Pt presents ambulating in leather every day footwear without assistance and oriented x 3. Few changes to the following objective findings from the Last clinic appt on February 29, 2024 Vasc: DP and PT pulses are palpable 1/4 b/l. CFT < 4 seconds b/l Hair growth is diminished on the digits, b/l feet. There is mild, moderate ankle edema present, b/l extremities. Neuro: Protective sensation is absent at all sites tested with [place] Mack 5.07 monofilament to both feet. This [...] Exam debride nails x 10, without incident debride keratosis x one without incident, left hallux FOOT RISK SCORE: high foot risk per the A directive 1122 discussed in detail -- continue moistorizer cream apply to the feet The patient agreed with the plan and voiced understanding with the discussion and plan. Discussed diabetic foot care in general. Pt relates verbal understanding. Pt encouraged to check feet daily. Pt given clinic phone numbers. PROSTHETICS: none this visit Pt rtc in two months Patient instructed to go to [facility], or contact their PCP with new pedal complaints, and if there are concerns or questions. Example includes infection. The pt voiced understanding of infection such as red, hot, swollen and streaking foot that may baccompanied with or without f/c/n/v/d/m/chest pain/sob/leg pain. /es/ ANGELICA L. JODY, D.P.M. Staff Physician - Podiatry Signed: 08/20/2024 21:18 ANGELICA VERA [facility]
--- OUTSIDE RECORDS SUMMARY | 2025-01-27 16:17 | XMS_ITS | Encounter Summary ---
Author Organization [facility] Address [address] [place] [address] Phone Care Team Providers Care Engineering Group Manager Name Role Phone No, Physician Primary Care Provider [phone] Demetrius Espitia MD Unavailable [phone] Henry Barton MD Unavailable [phone] Reason for Referral * Diagnostic Imaging (Routine) - Closed Specialty Diagnoses / Procedures Referred By Contac t Referred To Contact Diagnoses Pituitary adenoma (HCC) Procedures Velazquez Visual Field - OU - Both Eyes Velazquez Visual Field - OU - Both Eyes Herbert Sneed MD [address] [place] [address] Phone: tel: fax: [facility] Referral ID Status Reason Start Date Expiration Date Visits Re quested Visits Authorized [id number] Closed 11/24/2023 12/23/2024 1 1 SERVICE KITCHEN SUPERVISOR Encounter Details Date Type Department Care Team (Late st Contact Info) Description 11/24/2023 Orders Only [facility] Neurosurgery [address] [facility] 6th [place] [address] [place] [address] Herbert Sneed MD [address] [place] [address] Pituitary adenoma (HCC) (Primary Dx) [...] on file Legal Sex Male 7:17 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
--- OUTSIDE RECORDS SUMMARY | 2025-01-27 16:17 | XMS_ITS | Encounter Summary ---
Author Name [facility] [facility] [place] Address [address] [place] [address] Care Team Providers Care Cleat Blanker Name Role Phone SERGEI NORWOOD Primary Care [...] PART B May 13, 2014 PART B [id number] NERIMatty FATIMAH PATIENT MEDICARE (WNR) MEDICARE (M) PART B May 13, 2014 PART B [id number] Matty NERI FATIMAH PATIENT MEDICARE (WNR) MEDICARE (M) PART A Aug 13, 2011 PART A [id number] NERIMatty FATIMAH PATIENT MEDICARE (WNR) MEDICARE (M) PART A Aug 13, 2011 PART A [id number] Matty NERI FATIMAH PATIENT Selected Encounter This section includes the information on record at [place] for the Encounter. Date/Time Encounter Type Encounter Description Reason Provider Source Mar 06, 2024 10:00 AM MTMS BY PHARM EST 15 MIN CLINICAL PHARMACY ICD-10-CM Z79.891 senior care (current) use of opiate analgesic CASH CARDENAS [facility] Encounter Template Text not used by [place] Assessments - Encounter Diagnoses This section includes the primary and secondary diagnoses documented for the Encounter. Date/Time Primary/Secondary Diagnosis Diagnosis Name Provider Source Mar 06, 2024 03:54 PM PRIMARY terminologist (current) use of opiate analgesic CASH CARDENAS [facility] Mar 06, 2024 03:54 PM SECONDARY Chronic pain syndrome CASH CARDENAS [facility] Plan of Treatment: Future Appointments (+ 6 months) and Future Tests (+/- 45 days) The Plan of Treatment section includes future care activities for the patient from all [facility]. This section includes future appointments and future orders which are active, pending or scheduled. Future Appointments This section includes appointments that were scheduled to occur 6 months from the date of the Encounter, up to a maximum of 20 appointments. The data comes from all [facility]. Appointment Date/Time Appointment Type Appointme nt Facility Name March 20, 2024 09:30 AM AMBULATORY - NONE [facility] March 28, 2024 10:30 AM AMBULATORY - MEDICINE [facility] March 29, 2024 11:30 AM AMBULATORY - MEDICINE [facility] Apr 29, 2024 11:00 AM AMBULATORY - REHAB MEDICIN E [facility] May 06, 2024 02:30 PM AMBULATORY - NONE [facility] Jun 03, 2024 09:00 AM AMBULATORY - MEDICINE [facility] Jun 19, 2024 02:00 PM AMBULATORY - MEDICINE [facility] Jun 28, 2024 11:00 AM AMBULATORY - NONE [facility] Jul 01, 2024 09:00 AM AMBULATORY - NONE [facility] Jul 01, 2024 10:00 AM AMBULATORY - NONE [facility] Jul 04, 2024 08:00 AM AMBULATORY - NONE [facility] Jul 08, 2024 09:30 AM AMBULATORY - NONE [facility] Jul 08, 2024 10:00 AM AMBULATORY - NONE [facility] Jul 23, 2024 10:45 AM AMBULATORY - MEDICINE [facility] Aug 07, 2024 01:40 PM AMBULATORY - MEDICINE [facility] Aug 08, 2024 01:00 PM AMBULATORY - NONE [facility] Aug 14, 2024 03:15 PM AMBULATORY - MEDICINE [facility] Aug 20, 2024 02:00 PM AMBULATORY - SURGERY . [facility] Sep 03, 2024 10:45 AM AMBULATORY - MEDICINE [facility] Active, Pending, and Scheduled Orders This section includes a listing of several types of active, pending, and scheduled orders, including clinic medications orders, diagnostic test orders, procedure orders and consult orders; where the start date of the order is 45 days before the date of the Encounter or 45 days after the date of theEncounter. The data comes from all [facility] facilities. Test Date/Time Test Type Test Details Facility Name Jan 24, 2024 12:00 AM Laboratory - Chemi stry Order B12 GOLD/RED SST SERUM [facility] Feb 07, 2024 12:00 AM Laboratory - Chemi stry Order TESTOSTERONE, FREE PANEL RED/NO-GEL SERUM [facility] Lab Results: +/- 30 days of the encounter This section includes the Chemistry and Hematology Lab Results on record with [place] for the patient. Radiology Reports and Pathology Reports are provided separately, in subsequent sections. Lab Results This section contains the Chemistry/Hematology Results that were resulted 30 days before or 30 daysafter the date of the Encounter. Date/Time Source Result Type Result - Unit Interpretation Reference Range Comment Mar 06, 2024 10:41 AM [facility] METHADONE PANEL (STL) Specimen Type: URINE Comment: The cut-off value for this test was laboratory developed and its performance characteristics confirmed by the [facility] laboratory thru method comparison with reference laboratory and medication chart review. The laboratory is regulated under CLIA as qualified to perform high-complexity testing. This test is used for clinical purposes in conjunction with other laboratory tests. Ordering Provider: CASH CARDENAS Report Released Date/Time: Mar 06, 2024 08:09 AM Reporting Lab: [facility] [address] [facility] [address] Performing Lab: [address] [address] ETHANOL Negative mg/dL 0-20 AMPHET/METHAMPHE TAMINE Negative ng/mL COCAINE METABOLITES Negative ng/mL BENZODIAZEPINES (STL) Negative ng/mL CANNABINOIDS Negative ng/mL METHADONE Negative ng/mL OPIATES >1000-POS ng/mL CREATININE URINE/OTHERS 100.9 mg/dL 63-166 OXYCODONE (DRGEL-GLB-CU) Negative ng/mL BUPRENORPHINE (STL-PB-MA) Negative FENTANYL (STL-PB) Negative ng/mL Feb 28, 2024 01:12 PM [facility] MICRAL/CREAT PROFILE (STL) Specimen Type: URINE No comment entered. Ordering Provider: ALFREDITO MALDONADO Report Released Date/Time: Jan 24, 2024 03:44 PM Reporting Lab: [address] [address] Performing Lab: [address] [address] URINE ALBUMIN (PB-STL) 6.6 mg/L uACR (STL) 7 mg/g 0-29 CREATININE URINE/OTHERS 92.8 mg/dL 63-166 Feb 28, 2024 01:06 PM [facility] PROST. SPECIFIC AG.(PB-STL) Specimen Type: SERUM Comment: The listed sex of this patient may not be a typical indication for this test. Therefore, reference ranges or interpretive criteria listed may not be valid. Clinical correlation suggested. Ordering Provider: ALFREDITO MALDONADO Report Released Date/Time: Jan 24, 2024 03:44 PM Reporting Lab: [address] [address] Performing Lab: [address] [address] PROST. SPECIFIC AG.(PB-STL) 0.323 ng/mL 0-4 Feb 28, 2024 01:06 PM [facility] HGA1C Specimen Type: BLOOD No comment entered. Ordering Provider: ALFREDITO MALDONADO Report Released Date/Time: Jan 24, 2024 03:44 PM Reporting Lab: [facility] [address] [place] [address] Performing Lab: [facility] [address] [place] [address] HGA1C 6.6 H 4.0-6.0 Feb 28, 2024 01:06 PM [facility] TSH (MA-PB) Specimen Type: SERUM Comment: The listed sex of this patient may not be a typical indication for this test. Therefore, reference ranges or interpretive criteria listed may not be valid. Clinical correlation suggested. Ordering Provider: ALFREDITO MALDONADO Report Released Date/Time: Jan 24, 2024 03:44 PM Reporting Lab: [place] [address] Performing Lab: [place] [address] TSH 0.841 u[IU]/mL 0.47-5 Feb 28, 2024 01:06 PM [facility] CBC Specimen Type: BLOOD No comment entered. Ordering Provider: ALFREDITO MALDONADO Report Released Date/Time: Jan 24, 2024 03:44 PM Reporting Lab: [facility] [place] [address] Performing Lab: [facility] [place] [address] WBC 7.0 10*3/uL 3.6-11.2 RBC 4.61 10*6/uL 4.10-5.70 HGB 13.9 g/dL 13.1-16.8 HCT 41.6 38.2-48.4 MCV 90.2 fL 80.0-100.0 MCH 30.2 pg 27.0-34.0 MCHC 33.4 g/dL 33.0-36.0 PLT 116 10*3/uL L 150-400 MPV 11.4 fL H 7.5-11.2 RDW 14.6 11.8-15.1 LYMPHOCYTES, AUTO % 16 MONOCYTES, AUTO % 8 NEUTROPHILS, AUTO % 67 EOSINOPHILS, AUTO % 9 BASOPHILS, AUTO % 0 LYMPHOCYTES, ABSOLUTE 1.13 10*3/uL 0.77-4.50 MONOCYTES, ABSOLUTE 0.54 10*3/uL 0.19-0.80 NEUTROPHILS, ABSOLUTE 4.65 10*3/uL 2.10-8.00 EOSINOPHILS, ABSOLUTE 0.60 10*3/uL 0.00-0.60 BASOPHILS, ABSOLUTE 0.03 10*3/uL 0.00-0.20 IMMATURE PLT FRACTION 5.1 1.0-7.0 Feb 28, 2024 01:06 PM [facility] COMPREHENSIVE METABOLIC PANEL Specimen Type: PLASMA Comment: No hemolysis noted. Ordering Provider: ALFREDITO MALDONADO Report Released Date/Time: Jan 24, 2024 03:44 PM Reporting Lab: [address] [address] Performing Lab: [address] [address] CREATININE 1.12 mg/dL 0.7-1.3 UREA NITROGEN 17.1 mg/dL 9.0-25.0 GLUCOSE 157 mg/dL H 72-99 SODIUM 139 meq/L 136-145 POTASSIUM 4.7 meq/L 3.5-5 CHLORIDE 105 meq/L 98-107 CARBON DIOXIDE 24 meq/L 22-31 CALCIUM 10.0 mg/dL 8.4-10.4 PROTEIN 7.1 g/dL 6-8.6 ALBUMIN 4.4 g/dL 3.4-5 TOTAL BILIRUBIN 0.7 mg/dL 0.2-1.2 ALKALINE PHOSPHATASE 62 U/L 40-150 AST/SGOT 20 U/L 5-34 ALT/SGPT 23 U/L 8-40 EGFR (CKD-EPI 2020) 67.7 >60 Encounter Notes: All associated encounter notes This section contains the clinical notes associated to the Encounter. Date/Time Encounter Note(s) Provider Source Mar 06, 2024 08:38 AM ACCOUNTING OF DISC LOSURES NOTE: LOCAL TITLE: [facility] PRESCRIPTION DRUG MONITORING PROGRAM STANDARD TITLE: ACCOUNTING OF DISCLOSURES NOTE DATE OF NOTE: MAR 06, 2024@08:38:49 ENTRY DATE: MAR 06, 2024@08:38:49 AUTHOR: CASH CARDENAS EXP COSIGNER: URGENCY: STATUS: COMPLETED This PDMP query was submitted by Cash Cardenas PHARMD. The clinical justification for this PDMP query is to review controlled substances prescribed outside of the [place], and any additional information that may become available, as an important component of standard clinical care, and in accordance with [facility] policy. Patient information was shared with the PDMP [place]. No prescription(s) for controlled substances outside the [place] were found in the last 90 days. /fransisco/ CASH CARDENAS PHARM.D., BCPS, BCACP CLINICAL SALES REPRESENTATIVE [employer] - PAIN MANAGEMENT Signed: 03/06/2024 15:54 CASH CARDENAS [facility] Mar 06, 2024 08:26 AM PAIN MEDICATION MG T NOTE: LOCAL TITLE: PAIN REHAB CTR PHARMACY STL STANDARD TITLE: PAIN MEDICATION MGT NOTE DATE OF NOTE: MAR 06, 2024@08:26 ENTRY DATE: MAR 06, 2024@08:26:26 AUTHOR: CASH CARDENAS EXP COSIGNER: URGENCY: STATUS: COMPLETED S: Pt is a 78 year old MALE who is currently following w/ pain management clinical pharmacy service. At last appointment w/ clincal pharmacy service on 08/30/23, lidocadine patches were started for upper back/shoulder pain. Since last appointment, saw Dr. Paulson for annual visit on 11/28/23. No changes were made to pt's therapy. Today, pt states that things are going well. States that the lidocaine patches have been effective. Pt is contemplating having hydrocodone/APAP qty reduced at a future visit. CHIEF COMPLAINT: Fibromyalgia, Arthritic Pain, Neuropathy ABBREVIATED MEDICAL HISTORY: (-) CV (+) Pulmonary: sleep apnea (-) Kidney (+) Liver: steatosis of the liver Medication reconciliation: Cholecalciferol 4000 units once daily -Taking Cyanocobalamin 1000mcg once daily -Taking Diclofenac 1% gel 2gm to hands and shoulders TID PRN -applying to the hands and shoulders and right hip, -will ocassionally use depending on his activity levels. Duloxetine 60mg once daily -Taking Hydrocodone/APAP 7.5/325 TID PRN -Taking, reports he uses AM, evening, and HS - Has been taking twice daily most of the time. Will occasionally take the middle of the day dose. pregabalin 75mg twice daily -Taking -helping him sleep better and helpful for fibromyalgia/neuropathy Tizanidine 2 mg BID -Taking, helpful, states that he does hleps w/ cramps. lidocaine 5% patches: apply for 12 hours; remove and destroy; off for 12 hours; repeat: Will use on the back and shoulders. States that these are effective. Other treatments: none. Did discuss w/ pt to consider either ice or heating pad for pain flares. Is patient enrolled in [employer]? : () Y (x) N When was most recent dose of opioid taken? this morning If applicable, has your naloxone kit been used on you or another person since last visit? none, send to arielle MELENDEZ risk score: low RIOSORD risk class: not calculated prescription being recently . Social history: ETOH use: none if +, AUDIT-C, reminder under mental health. tobacco use: none marijuana use: none cocaine use: none Suicidal ideation: Have you thought about hurting yourself over the past month? Y() N(x) Analgesia: 1. Location and nature of patient's pain: 2. PAIN SCORE: PEG TOOL Each question is based on a 0 to 10 scale, with 0 as a no pain or interference and 10 as the worst pain or interference imaginable . Question #1: On scale of 0 (no pain) through 10 (worst pain), which number best describes your pain on average during the past week? Average score: Previous 3 Current 2 Question #2 On scale of 0 (no interference) through 10 (extreme/frequent interference), which number best describes how pain has interfered with your enjoyment of life during the past week? Average score: Previous 3 Current 2 Question #3 On a scale of 0 (no interference) through 10 (extreme/frequent interference), which number best describes how pain has interfered with your general activity during the past week? Average score Previous 3 Current 3 SUMMARY Average of the three previous scores Summary score: Previous 3 Current 2 Activities of daily living questions for : Since you started the medications, have you noticed an improvement in your daily activities? Pt states the pain is manageable and he is able to be a productive member of society. Does woodworking, rebuilding deck at this time. What are your goals for pain management (pain level, activity goals, etc.)? -Maintain functionality Adverse effects: (-) Constipation: once daily BM, on Miralax Aberrant behavior: none ON OPIOID THERAPY (x) Y () N - Opioid consent: 06/2021 - Verbal consent for UDS (annual): 03/06/24 - Last methadone panel: 11/28/23 - Last PDMP: 03/06/24 - Last naloxone kit: 09/03/22 - due today. Past opioids/non-opioids trialed oxycodone/APAP 5/325mg three times daily ibuprofen 200mg twice daily gabapentin 300mg TID lidocaine 5% ointment Allergies: SIMVASTATIN, ATORVASTATIN, ROSUVASTATIN, PRAVASTATIN Current medications: Active Outpatient Medications (including Supplies): Active Outpatient Medications Status 1) CHOLECALCIF 50MCG (D3-2,000UNIT) TAB TAKE TWO TABLETS ACTIVE BY MOUTH ONCE A DAY FOR VITAMIN D DEFICIENCY 2) CYANOCOBALAMIN 1000MCG TAB TAKE ONE TABLET BY MOUTH ACTIVE ONCE A DAY FOR B12 SUPPLEMENTATION 3) DULOXETINE HCL 60MG EC CAP TAKE ONE CAPSULE BY MOUTH ACTIVE ONCE A DAY DO NOT ABRUPTLY DISCONTINUE MEDICATION. 4) EMPAGLIFLOZIN 25MG TAB TAKE ONE TABLET BY MOUTH ONCE ACTIVE A DAY FOR DIABETES 5) LIDOCAINE 5% PATCH APPLY 1-3 PATCHES TO SKIN SITE ACTIVE ONCE A DAY NEEDED FOR PAIN APPLY PATCH AND PRESS FIRMLY FOR 10-15 SECONDS. KEEP ON FOR 12 HOURS THEN REMOVE PATCH FOR 12 HOURS. 6) METFORMIN HCL 1000MG TAB TAKE ONE TABLET BY MOUTH ACTIVE TWICE A DAY WITH MEALS FOR BLOOD SUGAR CONTROL. TAKE WITH FOOD. AVOID ALCOHOL. DISCONTINUE BEFORE GETTING XRAY DYE. 7) POLYETHYLENE GLYCOL 3350 ORAL PWDR MIX AND DRINK 1 ACTIVE CAPFUL BY MOUTH ONCE A DAY TO PREVENT CONSTIPATION. (MEASURE WITH CAP AND MIX IN 8 OZ OF WATER) 8) SEMAGLUTIDE 0.25MG/0.375ML INJ PEN 3ML INJECT 0.5MG ACTIVE UNDER THE SKIN EVERY WEEK FOR DIABETES 9) SILDENAFIL CITRATE 100MG TAB TAKE ONE TABLET BY MOUTH ACTIVE EVERY WEEK NEEDED FOR ERECTILE DYSFUNCTION (TAKE 60 MINUTES PRIOR TO SEXUAL ACTIVITY) - LIMIT 6 DOSES PER 30 DAYS 10) TAMSULOSIN HCL 0.4MG CAP TAKE ONE CAPSULE BY MOUTH ACTIVE EVERY EVENING APPROXIMATELY 30 MINUTES AFTER THE SAME MEAL EACH DAY (FOR PROSTATE) 11) TIZANIDINE HCL 4MG TAB TAKE ONE-HALF TABLET BY MOUTH ACTIVE TWICE DAILY NEEDED FOR SPASTICITY Active Non-VA Medications Status 1) Non-VA CIPROFLOXACIN 0.3/DEXAM 0.1% OTIC SUSP 4 DROPS ACTIVE TO AFFECTED EAR(S) TWICE A DAY 12 Total Medications No medications found. Current medical problems: 1) Idiopathic peripheral autonomic neuropathy comment: 2012 2) Immune thrombocytopenia comment: 2009 3) Osteoarthritis of knee comment: RT KNEE TKR 2007, LT KNEE TKR 2010 4) History of tobacco use 5) Diabetes mellitus 6) Hyperlipidemia 7) Obstructive sleep apnea 8) Steatosis of liver 9) Chronic pain 10) Fibromyalgia 11) Otalgia 12) Decreased androgen level 13) Foot ulcer 14) Osteomyelitis comment: R 1st toe; IV vancomycin and IV ertapenem May-Jun 2021 15) Hypertension 16) Long-term current use of opiate analgesic drug 17) Exposure to potentially hazardous substance 18) Basal cell carcinoma of forehead 19) Prostate Cancer ([facility] [id number]) O: Recent labs: AMPHET/METHAMPHETAMINE Negative ng/mL 11/28/2023 09:57 AMPHET/METHAMPHETAMINE Negative ng/mL 08/30/2023 11:23 AMPHET/METHAMPHETAMINE Negative ng/mL 06/07/2023 13:40 BENZODIAZEPINES (STL) Negative ng/mL 11/28/2023 09:57 BENZODIAZEPINES (STL) Negative ng/mL 08/30/2023 11:23 BENZODIAZEPINES (STL) Negative ng/mL 06/07/2023 13:40 CANNABINOIDS Negative ng/mL 11/28/2023 09:57 CANNABINOIDS Negative ng/mL 08/30/2023 11:23 CANNABINOIDS Negative ng/mL 06/07/2023 13:40 COCAINE METABOLITES Negative ng/mL 11/28/2023 09:57 COCAINE METABOLITES Negative ng/mL 08/30/2023 11:23 COCAINE METABOLITES Negative ng/mL 06/07/2023 13:40 METHADONE Negative ng/mL 11/28/2023 09:57 METHADONE Negative ng/mL 08/30/2023 11:23 METHADONE Negative ng/mL 06/07/2023 13:40 OPIATES >1000-POS H ng/mL 11/28/2023 09:57 OPIATES >1000-POS H ng/mL 08/30/2023 11:23 OPIATES >1000-POS H ng/mL 06/07/2023 13:40 OXYCODONE (EPCJC-OMD-ML) Negative ng/mL 11/28/2023 09:57 OXYCODONE (WAWYO-RPX-DK) Negative ng/mL 08/30/2023 11:23 OXYCODONE (IMHOJ-VGA-RE) Negative ng/mL 06/07/2023 13:40 BUPRENORPHINE (STL-PB-MA) Negative ng/mL 11/28/2023 09:57 BUPRENORPHINE (STL-PB-MA) Negative ng/mL 08/30/2023 11:23 BUPRENORPHINE (STL-PB-MA) Negative ng/mL 06/07/2023 13:40 FENTANYL (STL-PB) Negative ng/mL 11/28/2023 09:57 FENTANYL (STL-PB) Negative ng/mL 08/30/2023 11:23 FENTANYL (STL-PB) Negative ng/mL 06/07/2023 13:40 CREATININE URINE/OTHERS 92.8 mg/dL 02/28/2024 13:12 CREATININE URINE/OTHERS 51.4 L mg/dL 11/28/2023 09:57 CREATININE URINE/OTHERS 89.3 mg/dL 08/30/2023 11:23 ETHANOL Negative mg/dL 11/28/2023 09:57 ETHANOL Negative mg/dL 08/30/2023 11:23 ETHANOL Negative mg/dL 06/07/2023 13:40 Mar 06, 2024@10:41 Test name Result units Ref. range Site Code CREATININE URINE/OTHERS 100.9 mg/dL 63 - 166 [657] AMPHET/METHAMPHETAMINE Negative ng/mL NEG. CU - FF <1000 ng/mL [657] Eval: Specimens with a creatinine concentration below 20 mg/dl may be Eval: questionable. Eval: If questionable call [id number] within 48 hrs of report. Eval: SPECIMEN OLDER THAN 3 DAYS CAN NOT BE TESTED. BENZODIAZEPINES (STL) Negative ng/mL NEG. CU - FF <200 ng/mL [657] CANNABINOIDS Negative ng/mL NEG. CU - FF <50 ng/mL [657] Eval: REF.RANGE HIGH CHANGE 9-23-05 FROM D.L 100 NG/ML TO D.L 50 NG/ML COCAINE METABOLITES Negative ng/mL NEG. CU - FF <300 ng/mL [657] Eval: The results of the Drugs of Abuse tests as above are not confirmed. Eval: Unconfirmed results must not be used for non-medical purposes (e.g., Eval: employment, legal). METHADONE Negative ng/mL NEG. CU - FF <300 ng/mL [657] OPIATES >1000-POS ng/mL NEG. CU - FF <300 ng/mL [657] OXYCODONE (NTBRV-WUA-ZS) Negative ng/mL NEG. CU - FF <100 ng/mL [657] BUPRENORPHINE (STL-PB-MA) Negative NEG. CU - FF <5 ng/mL [657] FENTANYL (STL-PB) Negative ng/mL NEG. CU - FF <1.3 ng/mL [657] Eval: THIS ASSAY DOES NOT DETECT THE METABOLITE [place]ANYL ETHANOL Negative mg/dL 0 - 20 [657] No data available for: TRAMADOL VITAMIN D, 25-HYDROXY 55.7 ng/mL 05/24/2023 11:09 ALBUMIN (PB-sendout) 4.5 g/dL 04/27/2023 08:07 TESTOSTERONE,BIOAVAILABLE (MA-PB-SO 82.6 ng/dL 04/27/2023 08:07 TESTOSTERONE,FREE (sendout) 40.2 pg/mL 04/27/2023 08:07 SEX HORMONE BINDING GLOBULIN 27 nmol/L 04/27/2023 08:07 TESTOSTERONE, TOTAL 273 ng/dL 04/27/2023 08:07 HGA1C 6.6 H % 02/28/2024 13:06 HGA1C 7.4 H % 11/28/2023 09:22 HGA1C 6.8 H % 05/24/2023 11:09 HGA1C 7.4 H % 02/10/2023 08:30 HGA1C 6.6 H % 07/25/2022 08:15 B12 617 pg/mL 12/21/2022 10:20 TSH 0.841 uIU/mL 02/28/2024 13:06 AST/SGOT 20 U/L 02/28/2024 13:06 ALT/SGPT 23 U/L 02/28/2024 13:06 TOTAL BILIRUBIN 0.7 mg/dL 02/28/2024 13:06 ALBUMIN 4.4 g/dL 02/28/2024 13:06 ALBUMIN (PB-sendout) 4.5 g/dL 04/27/2023 08:07 HGB 13.9 g/dL 02/28/2024 13:06 HCT 41.6 % 02/28/2024 13:06 PLT 116 L 10*3/uL 02/28/2024 13:06 est CrCl: 80.3mL/min CREATININE 1.12 mg/dL 02/28/2024 13:06 Measurement DT BP 01/24/2024 15:21 114/74 11/29/2023 13:37 123/74 11/28/2023 09:47 115/77 QTC interval : 04/27/2023 15:12 [id number] QTC Calculation(Bazett)427 ms Recent imaging: No data available A/P: Pt with neuropathic pain, fibromyalgia and arthritic pain. Pt continues to have functional benefit w/ current pain medications. Pt states that he is currently very satisifed w/ his current pain medications. Pt may be interested in tapering down the hydrocodone/APAP at a future visit. Will do a phone visit in 3 weeks to see if patient is ready for a taper down of the hydrocodone/APAP. Pt is agreeable to this. PDMP shows no non-VA activity. Today's methadone panel was appropriate. Current renal and hepatic function allow for current pain medications at current doses. 1. Continue current therapy. 2. Next pharmacy pain clinic appt(s): phone 03/28/24, F2F 05/29/24 Time spent w/ pt: 20 minutes PBM PharmD Pharmacotherapy Rem V12: PHARMACIST INTERVENTIONS: PAIN MANAGEMENT Medication Intervention(s) Non-opioid pain medication intervention(s) Medication monitoring, no dosage change required, continue to monitor and assess Opioid pain medication intervention(s) Medication monitoring, no dosage change required, continue to monitor and assess High risk assessment evaluation Ordering and/or interpretation of urine drug screen/serum toxicology screen Pain assessment and screening evaluation to monitor pain control and pain-related quality of life Query of the [facility] Prescription Drug Monitoring Program (PDMP) /fransisco/ CASH CARDENAS PHARM.D., BCPS, BCACP CLINICAL SALES REPRESENTATIVE [employer] - PAIN MANAGEMENT Signed: 03/06/2024 15:54 CASH CARDENAS [facility]
--- OUTSIDE RECORDS SUMMARY | 2025-01-27 16:17 | XMS_ITS | Clinical Summary ---
Author Organization [facility] Address [address] [place] [address] Care Team Providers Care Geography Head Name Role Phone Provider, Unknown Primary Care [...] to Health Maintenance Insurance MEDICARE Care Teams Geography Head Relationship Specialty Start Date End Date Provider, Unknown UNKNOWN PCP - General 08/21/18
--- OUTSIDE RECORDS SUMMARY | 2025-01-27 16:17 | XMS_ITS | Encounter Summary ---
Author Name [facility] [place] [facility] [place] Address [address] [place] [address] Care Team Providers Care Production Supervisor Trainee Name Role Phone SERGEI NORWOOD Primary Care [...] PART B May 13, 2014 PART B [id number] TORRESMatty FATIMAH PATIENT MEDICARE (WNR) MEDICARE (M) PART B May 13, 2014 PART B [id number] Matty TORRES FATIMAH PATIENT MEDICARE (WNR) MEDICARE (M) PART A Aug 13, 2011 PART A [id number] TORRESMatty FATIMAH PATIENT MEDICARE (WNR) MEDICARE (M) PART A Aug 13, 2011 PART A [id number] Matty TORRESIEL PATIENT Selected Encounter This section includes the information on record at [place] for the Encounter. Date/Time Encounter Type Encounter Description Reason Provider Source Apr 29, 2024 11:00 AM OFFICE O/P EST HI 40 MIN GERIPACT ICD-10-CM E11.40 Type 2 diabetes mellitus with diabetic neuropathy, unsp SERGEI NORWOOD IHE Encounter Template Text not used by [facility] Assessments - Encounter Diagnoses This section includes the primary and secondary diagnoses documented for the Encounter. Date/Time Primary/Secondary Diagnosis Diagnosis Name Provider Source Apr 29, 2024 02:02 PM PRIMARY Type 2 diabetes mellitus with diabetic neuropathy, unsp SERGEI NORWOOD [facility] Apr 29, 2024 02:02 PM SECONDARY Essential (primary) hypertension SERGEI NORWOOD [facility] Apr 29, 2024 02:02 PM SECONDARY Fibromyalgia SERGEI NORWOOD [facility] Plan of Treatment: Future Appointments (+ 6 months) and Future Tests (+/- 45 days) The Plan of Treatment section includes future care activities for the patient from all [place] treatmentfacilities. This section includes future appointments and future orders which are active, pending or scheduled. Future Appointments This section includes appointments that were scheduled to occur 6 months from the date of the Encounter, up to a maximum of 20 appointments. The data comes from all [place] treatment facilities. Appointment Date/Time Appointment Type Appointme nt Facility Name May 06, 2024 02:30 PM AMBULATORY - NONE [facility] Jun 03, 2024 09:00 AM AMBULATORY - MEDICINE [facility] Jun 19, 2024 02:00 PM [facility]ORY - [facility] Jun 28, 2024 11:00 AM AMBULATORY - NONE [facility] Jul 01, 2024 09:00 AM AMBULATORY - NONE [facility] Jul 01, 2024 10:00 AM AMBULATORY - NONE [facility] Jul 04, 2024 08:00 AM AMBULATORY - NONE . [facility] Jul 08, 2024 09:30 AM AMBULATORY - NONE [facility] Jul 08, 2024 10:00 AM AMBULATORY - NONE . [facility] Jul 23, 2024 10:45 AM AMBULATORY - MEDICINE [facility] Aug 07, 2024 01:40 PM AMBULATORY - MEDICINE [facility] Aug 08, 2024 01:00 PM AMBULATORY - NONE [facility] Aug 14, 2024 03:15 PM AMBULATORY - MEDICINE [facility] Aug 20, 2024 02:00 PM AMBULATORY - SURGERY . [facility] Sep 03, 2024 10:45 AM AMBULATORY - MEDICINE [facility] Sep 09, 2024 10:00 AM AMBULATORY - NONE [facility] Sep 16, 2024 10:45 AM AMBULATORY - MEDICINE [facility] Sep 27, 2024 02:20 PM AMBULATORY - SURGERY . [facility] Oct 14, 2024 01:00 PM AMBULATORY - SURGERY [facility] Oct 16, 2024 02:45 PM AMBULATORY - MEDICINE [facility] Active, Pending, and Scheduled Orders This section includes a listing of several types of active, pending, and scheduled orders, including clinic medications orders, diagnostic test orders, procedure orders and consult orders; where the start date of the order is 45 days before the date of the Encounter or 45 days after the date of theEncounter. The data comes from all [place] treatment facilities. Test Date/Time Test Type Test Details Facility Name May 17, 2024 02:37 PM Consult Order [facility] DENTAL SPEC Cons Review Coordinator's Choice [facility] Lab Results: +/- 30 days of the encounter This section includes the Chemistry and Hematology Lab Results on record with [place] for the patient. Radiology Reports and Pathology Reports are provided separately, in subsequent sections. Lab Results This section contains the Chemistry/Hematology Results that were resulted 30 days before or 30 daysafter the date of the Encounter. Date/Time Source Result Type Result - Unit Interpretation Reference Range Comment May 17, 2024 10:41 AM [facility] LIPID PANEL ([facility]) Specimen Type: PLASMA No comment entered. Ordering Provider: ERI NORWOOD Report Released Date/Time: Apr 29, 2024 12:16 PM Reporting Lab: [facility] [address] [facility] [id number] Performing Lab: [facility] [address] [facility] [address] CHOLESTEROL 131 mg/dL 0-200 TRIGLYCERIDE 157 mg/dL H 0-150 CALCULATED LDL 64 mg/dL HDL(New) 36 mg/dL L >40 Vital Signs: All taken on the encounter date This section contains inpatient and outpatient Vital Signs collected on the date of the Encounter. Date/Time Temperature Pulse Blood Pressure Respiratory Rate SP02 Pain Height Weight Body Mass Index Source Apr 29, 2024 10:59 AM 79/51 [facility] Apr 29, 2024 10:58 AM 97.2 78 100/63 20 96 4 79 249.9 28 [facility] Social History: Smoking Status (Most current) and Tobacco Use (All prior to encounter date) This section includes the most current, and the historical, smoking and tobacco- related health factors from the [place] facility where the Encounter took place. Current Smoking Status This section includes the most current smoking, or tobacco-related health factor, from the [place] facility where the Encounter took place. Date/Time Current Smoking Status Comment Amol alston Apr 29, 2024 11:00 AM VA-TOBACCO FORMER USER [facility] Tobacco Use History This section includes a history of the smoking, or tobacco-related health factors, that were collected on or before the date of the Encounter. The data comes from the [place] facility where the Encounter took place. Date/Time Smoking Status/Tobacco Use Comment F acharsh Apr 29, 2024 11:00 AM [place]-TOBACCO QUIT 15 YRS OR MORE [facility] Encounter Notes: All associated encounter notes This section contains the clinical notes associated to the Encounter. Date/Time Encounter Note(s) Provider Source Apr 29, 2024 11:29 AM GERIATRIC MEDICINE NOTE: LOCAL TITLE: GERIATRIC PACT CLINIC [facility] STANDARD TITLE: GERIATRIC MEDICINE NOTE DATE OF NOTE: APR 29, 2024@11:29 ENTRY DATE: APR 29, 2024@11:29:32 AUTHOR: KAVITA NEVAREZ COSIGNER: SERGEI NORWOOD URGENCY: STATUS: COMPLETED GERIATRIC PACT CLINIC [facility] Has ADDENDA Type of Evaluation: Geriatric Follow-up Date of Visit: 04/29/24 11:00 Patient's SSN:[id number] DUANE TORRES is a 78 year old WHITE MALE. : Aug CC: orthostatic hypotension and nausea/vomiting HPI: Duane Torres is a 78 y/o male with PMH of HTN, HLD, T2DM, fibromyalgia/neuropathy, and prostate cancer s/p radiation who presents today for routine f/u and to discuss CC of orthostatic dizziness as well as recent nausea/vomiting/diarrhea. His last appointment here was November 28 2023. In the interim, he reports no ER visits/hospitalizations. Patient reports that for the past few months, he has been feeling dizzy and faint when standing up. He states it has been progressivley gettting worse in severity, duration, and frequency. He has not had a fall but needs to hold on to something when he stands up otherwise feels like he would fall. Does not endorse blurry or darkening of vision when this occurs. In addition, he states that he has had 2 distinct epiododes of nausea, vomiting, diarrhea, and bloating in the past week. States that he is replinishing his fluids as well as he can. Does not feel like he ate anything spoiled or out of the ordinary for him. Denies diarrhea being bloody. Emesis contains food that he had eaten earlier that day and is not bloody. He saw endocrinology in January for his diabetes. He continues on regimen of metformin, ozempic, and jardiance. Recently increased ozempic to 1mg. He also follows with pain management for his fibromyalgia and neuropathy. On regimen of hydrocodone/acetaminophen, duloxetine, pregabalin, tizanidine, diclofenac gel, and lidocaine patches. He states he has decreased his hydrocodone from 3 tablets daily to 2 tablets. Reports decent pain control. He saw dermatology for a FBSE and for itchy scalp in March. Was prescribed clobetasol solution and ketoconazole shampoo. Adherence to Medications & Managed by: self GERIATRIC REVIEW OF SYSTEMS: Change in weight: 30 pounds since last visit Appetite: supressed because ozempic Dysphagia (specify with or without CVA): no concerns Dentition: ok Sleep: endorses nightmares; 8 hours a night Vision: ok Hearing: ok Wounds/Ulcers: none Peripheral neuropathy (specify with or without DM): yes, seeing pain management Constipation: none Incontinence: none Nocturia: 2x Fear of falling: yes with dizziness Assistive devices: none Recent Hospitalizations: none Recent ER Visits: none Complete ROS: Constitutional: no fevers/chills/myalgias Eyes: no concerns ENMT: no concerns CV: endorses orthostatic changes Resp: no SOB GI: endorses recent diarrhea and vomiting : no concerns Musculoskeletal: arthritic pain Skin: no concerns Neuro: no concerns Psych: mood ok PMH: 1) Idiopathic peripheral autonomic neuropathy 2) [...] carcinoma of forehead 19) Prostate Cancer ([facility] [id number]) OUTPATIENT MEDICATION RECONCILIATION: Review of the essential medication list for review at the time of this encounter included: Remote and local facility patient allergies, and active and pending prescriptions dispensed from this [place] (local) and dispensed from another [place] or [facility] facility (remote) as well as local inpatient [...] A DAY FOR VITAMIN D DEFICIENCY 2) CLOBETASOL PROPIONATE 0.05% TOP SOLN APPLY LIGHTLY TO ACTIVE AFFECTED AREA(S) ONCE A DAY NEEDED SCALP ITCHING (EXTERNAL USE ONLY) 3) CYANOCOBALAMIN 1000MCG TAB TAKE ONE TABLET BY MOUTH ACTIVE ONCE A DAY FOR B12 SUPPLEMENTATION 4) DICLOFENAC NA 1% TOP GEL APPLY 4 GM TO AFFECTED ACTIVE AREA(S) FOUR TIMES [...] DAY DO NOT ABRUPTLY DISCONTINUE MEDICATION. 6) EMPAGLIFLOZIN 25MG TAB TAKE ONE TABLET BY MOUTH ONCE ACTIVE A DAY FOR DIABETES 7) HYDROCODONE 7.5/ACETAMINOPHEN 325MG TAB TAKE 1 TABLET ACTIVE (S) BY MOUTH TWICE DAILY NEEDED FOR SEVERE PAIN CAUTION: DO NOT EXCEED 4000MG PER DAY ACETAMINOPHEN (APAP) FROM ALL MEDS. 8) KETOCONAZOLE 2% SHAMPOO USE SHAMPOO TO AFFECTED ACTIVE AREA(S) ONCE A DAY NEEDED FOR DANDRUFF *LET SIT FOR 3-5 MINUTES ON SCALP, THEN RINSE* (EXTERNAL USE ONLY) (SHAKE WELL) 9) LIDOCAINE 5% PATCH APPLY 1-3 PATCHES TO SKIN SITE ACTIVE ONCE A DAY NEEDED FOR PAIN APPLY PATCH AND PRESS FIRMLY FOR 10-15 SECONDS. KEEP ON FOR 12 HOURS THEN REMOVE PATCH FOR 12 HOURS. 10) NALOXONE HCL 4MG/SPRAY SOLN NASAL SPRAY USE 1 SPRAY ACTIVE (4MG) INTO ONE NOSTRIL ONLY ONE-TIME FOR OPIOID OVERDOSE DO NOT PRIME NASAL SPRAY. SPRAY ONE DOSE IN ONE NOSTRIL, GIVE ADDITIONAL DOSE IF PATIENT DOES NOT START BREATHING WITHIN 2-3 MINUTES OR STOPS BREATHING AGAIN. CALL 911. IF USED, NOTIFY PROVIDER. 11) PETROLATUM (WHITE) OINT APPLY LIGHTLY TO AFFECTED ACTIVE AREA(S) TWICE A DAY FOR DRY SKIN 12) POLYETHYLENE GLYCOL 3350 ORAL PWDR MIX AND DRINK 1 ACTIVE CAPFUL BY MOUTH ONCE A DAY TO PREVENT CONSTIPATION. (MEASURE WITH CAP AND MIX IN 8 OZ OF WATER) 13) PRAVASTATIN NA 40MG TAB TAKE ONE-HALF TABLET BY MOUTH ACTIVE EVERY EVENING FOR HIGH CHOLESTEROL 14) PREGABALIN 75MG ORAL CAP TAKE ONE CAPSULE BY MOUTH ACTIVE TWICE A DAY *MAY CAUSE DROWSINESS* 15) SEMAGLUTIDE 1MG/0.75ML INJ PEN 3ML INJECT 1MG UNDER ACTIVE THE SKIN EVERY WEEK 16) TIZANIDINE HCL 4MG TAB TAKE ONE-HALF TABLET BY MOUTH ACTIVE TWICE DAILY NEEDED FOR SPASTICITY Active Non-VA Medications Status 1) Non-VA CIPROFLOXACIN 0.3/DEXAM 0.1% OTIC SUSP 4 DROPS ACTIVE TO AFFECTED EAR(S) TWICE A DAY 17 Total Medications Medication List was provided to the patient/caregiver at the end of the visit. ALLERGIES/ADR: SIMVASTATIN, ATORVASTATIN, ROSUVASTATIN, PRAVASTATIN VITALS: BP: 79/51 (04/29/2024 10:59) Pulse: 78 (04/29/2024 10:58) Temp: 97.2 F [36.2 C] (04/29/2024 10:58) RR: 20 (04/29/2024 10:58) Pain: 4 (04/29/2024 10:58) Weight: Measurement DT WEIGHT LB(KG)[BMI] 04/29/2024 10:58 249.9(113.35)[28*] 01/24/2024 15:21 273.5(124.06)[31*] 11/29/2023 13:37 286.8(130.09)[32*] Height: 79 in [200.7 cm] (04/29/2024 10:58) PE: General: NAD, well appearing HEENT: eomi, pupils equal and reactive bilaterally CV: RRR, no mrg. orthostatic BP Pulm: CTAB Abd: NTND, BS normoactive Ext: no edema bilaterally Neuro: no sensation until mid-calf bilaterally, otherwise no focal deficit; CN II-VII intact Gait: slow LABS: CMP: CREATININE 1.12 mg/dL 02/28/2024 13:06 GLUCOSE 157 H mg/dL 02/28/2024 13:06 SODIUM 139 mEq/L 02/28/2024 13:06 POTASSIUM 4.7 mEq/L 02/28/2024 13:06 CHLORIDE 105 mEq/L (02/28/24 13:06) CARBON DIOXIDE 24 mEq/L 02/28/2024 13:06 CALCIUM 10.0 mg/dL (02/28/24 13:06) PROTEIN 7.1 g/dL 02/28/2024 13:06 ALBUMIN 4.4 g/dL 02/28/2024 13:06 ALBUMIN (PB-sendout) 4.5 g/dL 04/27/2023 08:07 TOTAL BILIRUBIN 0.7 mg/dL 02/28/2024 13:06 ALKALINE PHOSPHATASE 62 U/L 02/28/2024 13:06 AST/SGOT 20 U/L 02/28/2024 13:06 ALT/SGPT 23 U/L 02/28/2024 13:06 CBC: WBC 7.0 10*3/uL (02/28/24 13:06) RBC 4.61 10*6/uL (02/28/24 13:06) HCT 41.6 % (02/28/24 13:06) MCV 90.2 fL (02/28/24 13:06) HGB 13.9 g/dL 02/28/2024 13:06 HGB A1C Collection DT Specimen Test Name Result Units Ref Range 02/28/2024 13:06 BLOOD HGA1C 6.6 H % 4.0 - 6.0 11/28/2023 09:22 BLOOD HGA1C 7.4 H % 4.0 - 6.0 05/24/2023 11:09 BLOOD HGA1C 6.8 H % 4.0 - 6.0 02/10/2023 08:30 BLOOD HGA1C 7.4 H % 4.0 - 6.0 07/25/2022 08:15 BLOOD HGA1C 6.6 H % 4.0 - 6.0 PLT 116 L 10*3/uL 02/28/2024 13:06 PSA: PROST. SPECIFIC AG.(PB-STL) 0.323 ng/mL 02/28/2024 13:06 CHOLESTEROL 178 mg/dL 11/28/2023 09:22 HDL: 44 mg/dL (11/28/23 09:22) LDL: CALCULATED LDL 85 mg/dL 11/28/2023 09:22 Trigs: 246 mg/dL H (11/28/23 09:22) No MICRAL data found VITAMIN D, 25-HYDROXY 55.7 ng/mL 05/24/2023 11:09 B12 617 pg/mL 12/21/2022 10:20 No FOLATE (STL-MA);FOLATE (PB);FOLATE (DC 08-20);FOLATE (DC 08/20) data found TSH 0.841 uIU/mL 02/28/2024 13:06 CHEST X-RAY: Impression for CHEST X-RAY, 2 VIEWS, 04/27/23, case [id number] No visible acute cardiopulmonary disease. ASSESSMENT AND PLAN: Duane Torres is a 78 y/o male with PMH of HTN, HLD, T2DM, fibromyalgia/neuropathy, and prostate cancer s/p radiation who presents today with complaints of orthostatic dizziness as well as recent nausea, vomiting, and diarrhea. #orthostatic changes - new - BP today: 100/63 sitting and 79/51 standing - recent GI illness, but sx preceeded this - will d/c jardiance and f/u in 3 weeks to see if it is contributing, no other medications seem to be likely #nausea, vomiting, bloating - new #diarrhea - new - patient reports two episodes in past week, each days apart - recently increased ozempic and decreased hydrocodone while maintianing same dose of miralax. likely multifactorial etiology involving multiple dose adjustments. Will suggest decreasing miralax to half cap in setting of decreased hydrocodone and CTM. Infectious cause less likely. #HTN - controlled - BP today 79/51 - currently not on medication, CTM #HLD - controlled - lipid panel 11/28/23: cholesterol 178, triglyceride 246, HDL 44, LDL 85 - continue pravastatin 20mg daily - will repeat lipid panel today #T2DM - controlled - regimen per endocrinology - last A1C 02/2024: 6.6 - continue metformin 1000mg BID, semaglutide 1mg injection weekly - trial d/c jardiance as above #fibromyalgia/neuropathy - controlled - followed by pain management, regimen per their service - continue lidocaine patches, diclofenac gel, tizanidine 2mg BID PRN, pregabalin 75mg BID, duloxetine 60mg daily, hydrocodone/acetaminophen 7.5/325mg BID PRN #prostate cancer s/p radiation #ED - Follows at [facility] in [place], [place], Dr. Espitia, [facility] - radiation therapy completed early this year - continue tamsulosin #seborrheic dermatitis - saw derm 03/29/24, they recommended ketoconazole 2% shampoo and clobetasol solution PRN Age Friendly 4M's WHAT MATTERS What Matters was addressed at this visit. MEDICATION Medications were addressed at this visit. MENTATION Depression was addressed at this visit. MENTATION Dementia was addressed at this visit. MENTATION Delirium was addressed at this visit. MOBILITY -------- Mobility was addressed at this visit. PREVENTION & HEALTH MAINTENANCE: Life Sustaining Treatment Orders RTC: 3 week for phone visit; otherwise 5-6 months routine f/u PAVE Foot Check: A complete foot check was completed at this encounter. VISUAL INSPECTION: Includes inspection for skin breaks, deformity, erythema, trauma, pallor on elevation, dependent rubor, nail deformities, extensive callus and pitting edema. Visual exam results: Abnormal PEDAL PULSES: Includes palpation of dorsalis and posterior tibial pulses and signs/symptoms of vascular compromise like pain, pallor, parasthesia or paralysis. Present (even if diminished) SENSORY CHECK: Includes 10 gram Monofilament (Harrison-Mack) test of sensation. Intact (Greater than or equal to 80% of sites checked) Abnormal (Less than 80% of sites checked): Abnormal (decreased or absent sensation to monofilament): Comment: no sensation until mid calf bilaterally HIGH-RISK: HIGH RISK INFORMATION PROVIDED: 1. Advised patient that extra depth footwear with soft molded inserts and braces may be required. 2. Advised patient not to walk barefoot. 3. Explained the importance of daily foot checks. 4. Stressed the importance of daily foot hygiene, including bathing, complete drying and thorough inspection for changes. Patient is established patient of Podiatry and/or Vascular: Last scheduled appointment: [Place data object here] /fransisco/ KAVITA NEVAREZ Signed: 04/29/2024 13:14 /fransisco/ SERGEI NORWOOD MD STAFF PHYSICIAN [facility] Cosigned: 04/29/2024 14:02 04/29/2024 ADDENDUM STATUS: COMPLETED Type of Evaluation: Geriatric Follow-up Date of Visit: 04/29/24 11:00 Patient's SSN:[id number] DUANE TORRES is a 78 year old WHITE MALE. : Aug CC: returns for routine clinic visit HPI: presents with two seperate c/o. has somoe orthostatic sx for at least the last monthhas episode of n, v and diarrhea lasting several hrs usually late at night x2 about a week apart Adherence to Medications & Managed by: good-self GERIATRIC REVIEW OF SYSTEMS: Change in weight: Appetite: Dysphagia (specify with or without CVA): Dentition: Sleep: ok Vision: ok Hearing: ok Wounds/Ulcers: Peripheral neuropathy (specify with or without DM): Constipation: as above Incontinence: Nocturia: Fear of falling: no Assistive devices: no Recent Hospitalizations: no Recent ER Visits: no Complete ROS: Constitutional: Eyes: ENMT: CV: Resp: GI: : Musculoskeletal: Skin: Neuro: Psych: Falls The has not fallen in the last 12 [...] carcinoma of forehead 19) Prostate Cancer ([facility] [id number]) OUTPATIENT MEDICATION RECONCILIATION: Review of the essential medication list for review at the time of this encounter included: Remote and local facility patient allergies, and active and pending prescriptions dispensed from this [place] (local) and dispensed from another [place] or [facility] facility (remote) as well as local inpatient [...] A DAY FOR VITAMIN D DEFICIENCY 2) CLOBETASOL PROPIONATE 0.05% TOP SOLN APPLY LIGHTLY TO ACTIVE AFFECTED AREA(S) ONCE A DAY NEEDED SCALP ITCHING (EXTERNAL USE ONLY) 3) CYANOCOBALAMIN 1000MCG TAB TAKE ONE TABLET BY MOUTH ACTIVE ONCE A DAY FOR B12 SUPPLEMENTATION 4) DICLOFENAC NA 1% TOP GEL APPLY 4 GM TO AFFECTED ACTIVE AREA(S) FOUR TIMES [...] DAY DO NOT ABRUPTLY DISCONTINUE MEDICATION. 6) EMPAGLIFLOZIN 25MG TAB TAKE ONE TABLET BY MOUTH ONCE ACTIVE A DAY FOR DIABETES 7) HYDROCODONE 7.5/ACETAMINOPHEN 325MG TAB TAKE 1 TABLET ACTIVE (S) BY MOUTH TWICE DAILY NEEDED FOR SEVERE PAIN CAUTION: DO NOT EXCEED 4000MG PER DAY ACETAMINOPHEN (APAP) FROM ALL MEDS. 8) KETOCONAZOLE 2% SHAMPOO USE SHAMPOO TO AFFECTED ACTIVE AREA(S) ONCE A DAY NEEDED FOR DANDRUFF *LET SIT FOR 3-5 MINUTES ON SCALP, THEN RINSE* (EXTERNAL USE ONLY) (SHAKE WELL) 9) LIDOCAINE 5% PATCH APPLY 1-3 PATCHES TO SKIN SITE ACTIVE ONCE A DAY NEEDED FOR PAIN APPLY PATCH AND PRESS FIRMLY FOR 10-15 SECONDS. KEEP ON FOR 12 HOURS THEN REMOVE PATCH FOR 12 HOURS. 10) NALOXONE HCL 4MG/SPRAY SOLN NASAL SPRAY USE 1 SPRAY ACTIVE (4MG) INTO ONE NOSTRIL ONLY ONE-TIME FOR OPIOID OVERDOSE DO NOT PRIME NASAL SPRAY. SPRAY ONE DOSE IN ONE NOSTRIL, GIVE ADDITIONAL DOSE IF PATIENT DOES NOT START BREATHING WITHIN 2-3 MINUTES OR STOPS BREATHING AGAIN. CALL 911. IF USED, NOTIFY PROVIDER. 11) PETROLATUM (WHITE) OINT APPLY LIGHTLY TO AFFECTED ACTIVE AREA(S) TWICE A DAY FOR DRY SKIN 12) POLYETHYLENE GLYCOL 3350 ORAL PWDR MIX AND DRINK 1 ACTIVE CAPFUL BY MOUTH ONCE A DAY TO PREVENT CONSTIPATION. (MEASURE WITH CAP AND MIX IN 8 OZ OF WATER) 13) PRAVASTATIN NA 40MG TAB TAKE ONE-HALF TABLET BY MOUTH ACTIVE EVERY EVENING FOR HIGH CHOLESTEROL 14) PREGABALIN 75MG ORAL CAP TAKE ONE CAPSULE BY MOUTH ACTIVE TWICE A DAY *MAY CAUSE DROWSINESS* 15) SEMAGLUTIDE 1MG/0.75ML INJ PEN 3ML INJECT 1MG UNDER ACTIVE THE SKIN EVERY WEEK 16) TIZANIDINE HCL 4MG TAB TAKE ONE-HALF TABLET BY MOUTH ACTIVE TWICE DAILY NEEDED FOR SPASTICITY Active Non-VA Medications Status 1) Non-VA CIPROFLOXACIN 0.3/DEXAM 0.1% OTIC SUSP 4 DROPS ACTIVE TO AFFECTED EAR(S) TWICE A DAY 17 Total Medications Medication List was provided to the patient/caregiver at the end of the visit. ALLERGIES/ADR: SIMVASTATIN, ATORVASTATIN, ROSUVASTATIN, PRAVASTATIN VITALS: BP: 79/51 (04/29/2024 10:59) Pulse: 78 (04/29/2024 10:58) Temp: 97.2 F [36.2 C] (04/29/2024 10:58) RR: 20 (04/29/2024 10:58) Pain: 4 (04/29/2024 10:58) Weight: Measurement DT WEIGHT LB(KG)[BMI] 04/29/2024 10:58 249.9(113.35)[28*] 01/24/2024 15:21 273.5(124.06)[31*] 11/29/2023 13:37 286.8(130.09)[32*] Height: 79 in [200.7 cm] (04/29/2024 10:58) PE: General: in nad, well groomed HEENT: nc/at, perrla, eomi CV: reg rate and rythm Pulm: clear to p and a Ext: no c,c or e Neuro: alert, oriented x3, cranial nerves 2-12 grossly intact Gait: walks unassisted LABS: CMP: CREATININE 1.12 mg/dL 02/28/2024 13:06 GLUCOSE 157 H mg/dL 02/28/2024 13:06 SODIUM 139 mEq/L 02/28/2024 13:06 POTASSIUM 4.7 mEq/L 02/28/2024 13:06 CHLORIDE 105 mEq/L (02/28/24 13:06) CARBON DIOXIDE 24 mEq/L 02/28/2024 13:06 CALCIUM 10.0 mg/dL (02/28/24 13:06) PROTEIN 7.1 g/dL 02/28/2024 13:06 ALBUMIN 4.4 g/dL 02/28/2024 13:06 ALBUMIN (PB-sendout) 4.5 g/dL 04/27/2023 08:07 TOTAL BILIRUBIN 0.7 mg/dL 02/28/2024 13:06 ALKALINE PHOSPHATASE 62 U/L 02/28/2024 13:06 AST/SGOT 20 U/L 02/28/2024 13:06 ALT/SGPT 23 U/L 02/28/2024 13:06 CBC: WBC 7.0 10*3/uL (02/28/24 13:06) RBC 4.61 10*6/uL (02/28/24 13:06) HCT 41.6 % (02/28/24 13:06) MCV 90.2 fL (02/28/24 13:06) HGB 13.9 g/dL 02/28/2024 13:06 HGB A1C Collection DT Specimen Test Name Result Units Ref Range 02/28/2024 13:06 BLOOD HGA1C 6.6 H % 4.0 - 6.0 11/28/2023 09:22 BLOOD HGA1C 7.4 H % 4.0 - 6.0 05/24/2023 11:09 BLOOD HGA1C 6.8 H % 4.0 - 6.0 02/10/2023 08:30 BLOOD HGA1C 7.4 H % 4.0 - 6.0 07/25/2022 08:15 BLOOD HGA1C 6.6 H % 4.0 - 6.0 PLT 116 L 10*3/uL 02/28/2024 13:06 PSA: PROST. SPECIFIC AG.(PB-STL) 0.323 ng/mL 02/28/2024 13:06 CHOLESTEROL 178 mg/dL 11/28/2023 09:22 HDL: 44 mg/dL (11/28/23 09:22) LDL: CALCULATED LDL 85 mg/dL 11/28/2023 09:22 Trigs: 246 mg/dL H (11/28/23 09:22) No MICRAL data found VITAMIN D, 25-HYDROXY 55.7 ng/mL 05/24/2023 11:09 B12 617 pg/mL 12/21/2022 10:20 No FOLATE (STL-MA);FOLATE (PB);FOLATE (DC 08-20);FOLATE (DC 08/20) data found TSH 0.841 uIU/mL 02/28/2024 13:06 CHEST X-RAY: Impression for CHEST X-RAY, 2 VIEWS, 04/27/23, case [id number] No visible acute cardiopulmonary disease. ASSESSMENT AND PLAN: 1. orthostatic hypotension- systolic 100 sitting down to 79 when standing. only med with any diuretic/antihypertensive property is jardiance. will hold jardiance and get back to me in two weeks with daily bp measures2. fibromyalgia- has cut hydrocodone to two a day with pain management3. diabetes- continue metformin and delaglutide- will recheck a1c appropriately and add another agent if necessary, last a1c was 6.6%4. diarrhea- has multiple potential etiologies. rec ently decreased hydrocodone but still on previous peg. on metformin. potential viral cause. will ask to decrease peg use and see if sx resolve- to report back at same time calls about bp6. nausea/vomiting- onlyu two episodes- both occurred late at night. associated with diarrhea- will follow for now to see if it imporves spontaneously. Age Friendly 4M's MEDICATION Medications were addressed at this visit. Comment: reviewed MENTATION Dementia was addressed at this visit. Comment: neg screening ad 8 MOBILITY -------- Mobility was addressed at this visit. Comment: walks 250 ft unassisted PREVENTION & HEALTH MAINTENANCE: Life Sustaining Treatment Orders RTC: /fransisco/ SERGEI NORWOOD MD STAFF PHYSICIAN ECRS Signed: 04/29/2024 14:15 KAVITA NEVAREZ [facility] Apr 29, 2024 11:11 AM NURSING NOTE: LOCAL TITLE: V15 PACT FACE TO FACE NOTE STL STANDARD TITLE: NURSING NOTE DATE OF NOTE: APR 29, 2024@11:11 ENTRY DATE: APR 29, 2024@11:11:06 AUTHOR: JAONNA ROQUE COSIGNER: URGENCY: STATUS: COMPLETED Provider Visit: Patient Identifiers : Full Name Date of Reason for visit: Established Follow-Up Mode of Arrival: Ambulatory Allergy Review: SIMVASTATIN, ATORVASTATIN, ROSUVASTATIN, PRAVASTATIN Allergy list reviewed and remains current. Recent Vital Signs: Temperature: 97.2 F [36.2 C] (04/29/2024 10:58) Pulse: 78 (04/29/2024 10:58) Respiration: 20 (04/29/2024 10:58) B/P: 79/51 (04/29/2024 10:59) Pain: 4 (04/29/2024 10:58) Wt: 249.9 lb [113.35 kg] (04/29/2024 10:58) Ht: 79 in [200.7 cm] (04/29/2024 10:58) BMI: 28.2 POX: 96% (04/29/2024 10:58) Blood sugar glucometer reading: n/a Would you like to discuss any personal problem, family problem, alcohol use, drug use, or a mental or emotional illness? No Contact provided Primary Care phone number and encouraged to call if any questions or concerns. Review that after hours nurse line ext.[phone] and emergency room are available 05/06 for patient use. Contact verbalized good understanding. Sexual Orientation: The patient thinks of their sexual orientation as: Straight or Heterosexual COVID-19 Immunization: Refused Pfizer Monovalent COVID-19 vaccine Immunization: COVID-19 (PFIZER), MRNA, LNP-S, PF, JUAN-SUCROSE, 30 MCG/0.3 ML (AGES 12+ YEARS) Refusal Reason: PATIENT DECISION Patient refuses all immunization(s) in the COVID-19 group Date Documented: 04/29/24 11:14 Frail/Elderly Screen: ADL Screen - Miranda Index of [place] in Activities of Daily Living Bathing: (3 Points) Receives no assistance (gets in and out of tub by self, if tub is usual means of bathing) Dressing: (3 Points) Gets clothes and gets completely dressed without assistance. Toileting: (3 Points) Goes to toilet room , cleans self, and arranges clothes without assistance (may use object for support such as cane, walker, or wheelchair, and may manage own night bedpan or commode, emptying same next morning) Transferring: (3 Points) Moves in and out of bed and in and out of chair without assistance (may be using object for support, such as cane or walker) Continence: (3 Points) Controls urination and bowel movement completely by self Feeding: (3 Points) Feeds self without assistance Total Score: 18 Points 18 = High (patient independent) 6 = Low (patient very dependent) IADL Screen - Tiffany Instrumental Activities of Daily Living Scale Ability to use telephone: (1 point) Operates Telephone on own initiative; looks up and dials numbers. Shopping: (1 point) Takes care of all shopping needs independently. Food preparation: (1 point) Plans, prepares, and serves adequate meals independently. Housekeeping: (1 point) Performs light daily tasks such as dishwashing, bed making. Laundry: (0 points) All laundry must be done by others. Mode of transportation: (1 point) Travels independently on public transportation or drives own car. Responsibility for own medications: (1 point) Is responsible for taking medications in correct dosages at correct times. Ability to handle finances: (1 point) Manages financial matters independently (budgets, writes checks, pays rent and bills, goes to bank); collects and keeps track of income. Total score: 8 points 8 = High function, independent 0 = Low function, dependent Falls Screen: Two or more falls within the last 12 months. Incontinence Screen: No incontinence. Tobacco Use Screening: The patient is a former tobacco user. The patient quit fifteen or more years ago. /fransisco/ JOANNA ROQUE JR, LPN LICENSED PRACTICAL NURSE Signed: 04/29/2024 11:19 JOANNA ROQUE [facility]
--- OUTSIDE RECORDS SUMMARY | 2025-01-27 16:17 | XMS_ITS | Clinical Summary ---
Author Organization [facility] [place] Address [address] [place] [address] Care Team Providers Care Aquarium Specialist Name Role Phone Juan Ha MD Primary Care Provider Michelle Barbosa RN Unavailable Unavailable Juan Joshi I OD Unavailable [facility] Unavailab le Source Comments [facility],non-owned Affiliates and Associated Physician Practices is amultiple site organization consisting of ambulatory clinics and hospital sitesin [place], [place], [place] and [place]. This disclosure is being madepursuant to the Care Everywhere program and may not contain all information available regarding this patient. 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 (AF LURIA, FLUZONE TRIVALENT; 6MO+) (IIV3) 08/13/2012 Covid [employer] primary monoval ent 12+ yr 0.3mL Purple cap 12/28/2020,12/06/2020 DT (AGE 0-7) 10/13/2002 FLU VACCINE QUAD IIV4 SPLIT 0.25 ML IM 09/12/2019 INFLUENZA A I5F7-13 VACCINE 10/26/2009 INFLUENZA VACCINE 10/16/2020, 8,08/03/2017,2010,10/04/2010,11/13/2006 INFLUENZA [...] Comments Blood Pressure 148/78 01/18/2022 1:00 PM [facility] Pulse 75 01/18/2022 1:00 PM [facility] Temperature 36.8 C (98.3 F) 01/18/2022 11:25 AM [facility] Respiratory Rate 6 01/18/2022 1:00 PM [facility] Oxygen Saturation 97% 01/18/2022 1:00 PM [facility] Inhaled Oxygen Concentration - - Weight 129.7 kg (286 lb) 01/18/2022 8:05 AM [facility] Height 200.7 cm (6' 7 ) 01/18/2022 8:05 AM [facility] Body Mass Index 32.22 01/18/2022 8:05 AM [facility] Plan of Treatment Health Maintenance Due Date [...] this topic Medical Devices Implanted Type Area Wire Border Assembler Device Identifier Shelf Expiration Date Model / Serial / Lot Mesh Srg Ventralight St Sepra 6x4in Implanted:Qty: 1 on 01/18/2022 by Demetrius Saini MD at [facility] N/A: [employer] 08/10/2023 [id number] / / [id number] Sys Fx 37cm Cpsr Str Ss Peek Perm Hndl Implanted:Qty: 1 on 01/18/2022 by Demetrius Saini MD at [facility] N/A: [employer] 09/09/2023 [id number] / / [id number] Procedures Procedure Name Priority Date/Time Associated Diagnosis Comments COMPREHENSIVE METABOLIC PANEL Routine 12/30/2021 9:33 AM [facility] Pure hypercholesterolemia MICROALB/CREAT RATIO URINE RANDOM PANEL Routine 01/07/2021 11:21 AM [facility] Type 2 diabetes mellitus without complication, without long-term current use of insulin (HCC) HEMOGLOBIN A1C Routine 01/07/2021 11:21 AM [facility] Type 2 diabetes mellitus without complication, without long-term current use of insulin (HCC) HEPATITIS C RIBA CONFIRMATION Routine 09/26/2011 5:03 PM [facility] from Last 3 Months or Most Recently Relevant to Health Maintenance Results * (ABNORMAL) COMPREHENSIVE METABOLIC PANEL (12/30/2021 9:33 AM [facility]) Glucose 258(H) 65 - 99 mg/dL [...] BLOOD SPECIMEN / Unknown 12/30/2021 9:33 AM [facility] 12/30/2021 Narrative Resulting Agency Comment Lab Testing performed at: [facility] [address] [facility] [phone] Juan Ha MD LAB - CHEMISTRY SWETHA CHAPPELL [facility] INSURANCE BILL [address] [place] [address] * MICROALB/CREAT RATIO URINE RANDOM PANEL (01/07/2021 11:21 AM [facility]) Creatinine Urine 171.4 Not Estab. mg/dL [facility] INSURANCE BILL Microalbumin Urine 17.1 Not Estab. ug/mL [facility] INSURANCE BILL Microalbumin/Crea tinine Ratio 10 0 - 29 mg/g creat [facility] INSURANCE BILL Comment: Normal: 0 - 29 Moderately increased: 30 - 300 Severely increased: >300 FASTING Urine URINE SPECIMEN OBTAINED BY CLEAN CATCH PROCEDURE / Unknown 01/07/2021 11:21 AM [facility] 01/07/2021 Narrative [facility] INSURANCE BILL - 01/08/2021 3:08 PM [facility] A courtesy copy of this report has been sent to the patient Resulting Agency Comment Lab Testing performed at: [facility] [address] [place] [phone] Juan Ha MD LAB - URINE CHEMISTR Y ORDERABLES Performing Organization Address City/[facility]/ZIP Co de Phone Number [facility] INSURANCE BILL [address] [place] [address] * (ABNORMAL) HEMOGLOBIN A1C (01/07/2021 11:21 AM [facility]) [facility] Hemoglobin A1c 6.5(H) 4.8 - 5.6 % [facility] INSURANCE BILL Comment: . Prediabetes: 5.7 - 6.4 Diabetes: >6.4 Glycemic control for adults with diabetes: <7.0 FASTING Blood BLOOD SPECIMEN / Unknown 01/07/2021 11:21 AM [facility] 01/07/2021 Narrative Resulting Agency Comment Lab Testing performed at: [facility] [address] [place] [address] [phone] Juan Ha MD LAB - CHEMISTRY ORDE RABLES Performing Organization Address City/[facility]/ZIP Co de Phone Number [facility] B[facility] [address] [place] [address] * HEPATITIS C RIBA CONFIRMATION (09/26/2011 5:03 PM [facility]) [facility] Hepatitis C Antibody <0.1 0.0 - 0.9 s/co ratio [facility] (BEAKER) Comment: Negative Not infected with HCV, unless recent infection is suspected or other evidence exists to indicate HCV infection. 09/26/2011 5:03 PM [facility] 09/26/2011 10:05 PM [facility] Narrative [facility] (DENISE) - 09/27/2011 7:28 AM [facility] Performed at: 01 - [facility] [address] [id number] Electrical Machine Builder: Laura Ibanez MD, Phone: [phone] Historical Provider LAB - SEROLOGY OR DERABLES [facility] RED) from Last 3 Months or Most Recently Relevant to Health Maintenance Care Teams Aquarium Specialist Relationship Specialty Start Date End Date Juan Ha MD PCP - General 07/04/16 [place], Michelle, it training specialistCredit Union Teller 02/26/19 Juan Joshi I, OD [address] [facility] [address] Wedding Decorator Low Retort Pre Cooker 12/21/21 [facility] Sivan Jimenez [address] [place] [address] 12/21/21
--- OUTSIDE RECORDS SUMMARY | 2025-01-27 16:17 | XMS_ITS | Encounter Summary ---
Author Name [facility] Address [address] [place] [address] Care Team Providers Care Forensic Chemist Name Role Phone SERGEI NORWOOD Primary Care [...] PART B May 13, 2014 PART B [id number] NERIMatty FATIMAH PATIENT MEDICARE (WNR) MEDICARE (M) PART B May 13, 2014 PART B [id number] NERIMatty FATIMAH PATIENT MEDICARE (WNR) MEDICARE (M) PART A Aug 13, 2011 PART A [id number] Matty NERI FATIMAH PATIENT MEDICARE (WNR) MEDICARE (M) PART A Aug 13, 2011 PART A [id number] Matty NERI FATIMAH PATIENT Selected Encounter This section includes the information on record at NH for the Encounter. Date/Time Encounter Type Encounter Description Reason Provider Source Jul 23, 2024 08:07 AM Outpatient Encounter [facility] CONSULT PAUL HEARD Encounter Template Text not used by NH Plan of Treatment: Future Appointments (+ 6 months) and Future Tests (+/- 45 days) The Plan of Treatment section includes future care activities for the [facility] This section includes future appointments and future orders which are active, pending or scheduled. Future Appointments This section includes appointments that were scheduled to occur 6 months from the date of the Encounter, up to a maximum of 20 appointments. The data comes from all [facility]. Appointment Date/Time Appointment Type Appointme nt Facility Name Aug 07, 2024 01:40 PM AMBULATORY - MEDICINE [facility] Aug 08, 2024 01:00 PM AMBULATORY - NONE [facility] Aug 14, 2024 03:15 PM AMBULATORY - MEDICINE [facility] Aug 20, 2024 02:00 PM AMBULATORY - SURGERY [facility] Sep 03, 2024 10:45 AM AMBULATORY - MEDICINE [facility] Sep 09, 2024 10:00 AM AMBULATORY - NONE [facility] Sep 16, 2024 10:45 AM AMBULATORY - MEDICINE [facility] Sep 27, 2024 02:20 PM AMBULATORY - SURGERY [facility] Oct 14, 2024 01:00 PM AMBULATORY - SURGERY [facility] Oct 16, 2024 02:45 PM AMBULATORY - MEDICINE [facility] Oct 17, 2024 10:30 AM AMBULATORY - REHAB [facility]IC[facility] Oct 25, 2024 02:00 PM AMBULATORY - SURGERY [facility] Nov 22, 2024 10:30 AM AMBULATORY - REHAB MEDICIN E [facility] Nov 25, 2024 11:00 AM AMBULATORY - REHAB MEDICIN [facility] Jan 15, 2025 03:40 PM AMBULATORY - MEDICINE [facility] Active, Pending, and Scheduled Orders This section includes a listing of several types of active, pending, and scheduled orders, including clinic medications orders, diagnostic test orders, procedure orders and consult orders; where the start date of the order is 45 days before the date of the Encounter or 45 days after the date of theEncounter. The data comes from all [place] treatment facilities. Test Date/Time Test Type Test Details Facility Name Sep 02, 2024 12:00 AM Laboratory - Chemi stry Order URINE DRUG SCREEN (STL) URINE YELLOW SP [facility] Social History: Smoking Status (Most current) and Tobacco Use (All prior to encounter date) This section includes the most current, and the historical, smoking and tobacco- related health factors from the NH facility where the Encounter took place. Current Smoking Status This section includes the most current smoking, or tobacco-related health factor, from the NH facility where the Encounter took place. Date/Time Current Smoking Status Comment Facil ity May 26, 2021 04:12 PM ORYX ADMIT TOBACCO SCREEN NO [facility] Encounter Notes: All associated encounter notes This section contains the clinical notes associated to the Encounter. Date/Time Encounter Note(s) Provider Source Jul 23, 2024 08:07 AM LETTERS: LOCAL TITLE: [facility] CARE-REQUEST FOR SERVICES (RFS) LETTER STANDARD TITLE: LETTERS DATE OF NOTE: JUL 23, 2024@08:07 ENTRY DATE: JUL 23, 2024@08:08:08 AUTHOR: NORBERT CERON COSIGNER: URGENCY: STATUS: COMPLETED [facility] [address] [place] [address] [facility] [address] [address] [address] [facility] [address] Dear Provider, Talihina Information: Patient Name: HUYEN NERI Date of : Aug The [facility] Service has received the request [id number] COMPREHENSIVE ORAL EVALUATION - NEW OR ESTAB, [id number] INTRAORAL- COMPREHENSIVE SERIES OF RADIOGRAPH D from you for services that were not originally authorized in the [facility] for this Talihina. Upon review, the following determination has been made: Service has been denied: Care has been deemed clinically inappropriate. Reason: Rationale for Decision * recently evaluated at [facility] o 06/28/24. Per note, will continue services at NH. Adding Primary Dental Provider for awareness and to place RTC if indicated. Should you have questions, please contact us at [phone] to speak with a patient financial services technician. As a reminder, if applicable, return medical records within 30 days for routine services. Sincerely, NORBERT CERON [facility] NORBERT [facility]OM[facility]
--- OUTSIDE RECORDS SUMMARY | 2025-01-27 16:17 | XMS_ITS | Encounter Summary ---
Author Name [facility] ([place]) Organization [facility] ([place]) Address [address] [place] [address] Care Team Providers Care Banana Carrier Name Role Phone SERGEI NORWOOD Primary Care [...] PART B May 13, 2014 PART B [id number] Matty NERI FATIMAH PATIENT MEDICARE (WNR) MEDICARE (M) PART B May 13, 2014 PART B [id number] Matty NERI FATIMAH PATIENT MEDICARE (WNR) MEDICARE (M) PART A Aug 13, 2011 PART A [id number] Matty NERI FATIMAH PATIENT MEDICARE (WNR) MEDICARE (M) PART A Aug 13, 2011 PART A [id number] Matty NERIIEL PATIENT Selected Encounter This section includes the information on record at [place] for the Encounter. Date/Time Encounter Type Encounter Description Reason Pro vider Source Jun 17, 2024 10:48 AM Outpatient Encounter GENERAL INTERNAL MEDICINE IHE Encounter Template Text not used by [place] Plan of Treatment: Future Appointments (+ 6 months) and Future Tests (+/- 45 days) The Plan of Treatment section includes future care activities for the [facility] [place] [facility] This section includes future appointments and future orders which are active, pending or scheduled. Future Appointments This section includes appointments that were scheduled to occur 6 months from the date of the Encounter, up to a maximum of 20 appointments. The data comes from all [place] treatment facilities. Appointment Date/Time Appointment Type Appointme nt Facility Name Jun 19, 2024 02:00 PM AMBULATORY - MEDICINE [facility] Jun 28, 2024 11:00 AM AMBULATORY - NONE [facility] Jul 01, 2024 09:00 AM AMBULATORY - NONE [facility] Jul 01, 2024 10:00 AM AMBULATORY - NONE [facility] Jul 04, 2024 08:00 AM AMBULATORY - NONE [facility] Jul 08, 2024 09:30 AM AMBULATORY - NONE [facility] Jul 08, 2024 10:00 AM AMBULATORY - NONE [facility] Jul 23, 2024 10:45 AM AMBULATORY - MEDICINE [facility] Aug 07, 2024 01:40 PM AMBULATORY - MEDICINE [facility] Aug 08, 2024 01:00 PM [facility]ORY [facility] NONE [facility] Aug 14, 2024 03:15 PM AMBULATORY - MEDICINE [facility] Aug 20, 2024 02:00 PM AMBULATORY - SURGERY [facility] Sep 03, 2024 10:45 AM AMBULATORY - MEDICINE [facility] Sep 09, 2024 10:00 AM AMBULATORY - NONE [facility] Sep 16, 2024 10:45 AM AMBULATORY - MEDICINE [facility] Sep 27, 2024 02:20 PM AMBULATORY - SURGERY [facility] Oct 14, 2024 01:00 PM AMBULATORY - SURGERY [facility] Oct 16, 2024 02:45 PM AMBULATORY - MEDICINE [facility] Oct 17, 2024 10:30 AM AMBULATORY - REHAB MEDICIN [facility] Oct 25, 2024 02:00 PM AMBULATORY - SURGERY Darius [facility] Active, Pending, and Scheduled Orders This section includes a listing of several types of active, pending, and scheduled orders, including clinic medications orders, diagnostic test orders, procedure orders and consult orders; where the start date of the order is 45 days before the date of the Encounter or 45 days after the date of theEncounter. The data comes from all [place] treatment facilities. Test Date/Time Test Type Test Details Facility Name May 17, 2024 02:37 PM Consult Order COMMUNITY CARE-STL DENTAL SPEC Cons Sausage Cutter's Choice [facility] Lab Results: +/- 30 days of the encounter This section includes the Chemistry and Hematology Lab Results on record with [place] for the patient. Radiology Reports and Pathology Reports are provided separately, in subsequent sections. Lab Results This section contains the Chemistry/Hematology Results that were resulted 30 days before or 30 daysafter the date of the Encounter. Date/Time Source Result Type Result - Unit Interpretation Reference Range Comment Jun 21, 2024 10:[address] [facility] URINE DRUG SCREEN (STL) Specimen Type: URINE Comment: The cut-off value for this test was laboratory developed and its performance characteristics confirmed by the [facility] laboratory thru method comparison with reference laboratory and medication chart review. The laboratory is regulated under CLIA as qualified to perform high-complexity testing. This test is used for clinical purposes in conjunction with other laboratory tests. Ordering Provider: CASH WOLFE Report Released Date/Time: May 28, 2024 02:02 PM Reporting Lab: [facility] [address] [address] Performing Lab: [facility] [address] [address] ETHANOL Negative mg/dL 0-20 AMPHET/METHAMPHE TAMINE Negative ng/mL COCAINE METABOLITES Negative ng/mL BENZODIAZEPINES (STL) Negative ng/mL CANNABINOIDS Negative ng/mL METHADONE Negative ng/mL OPIATES POSITIVE ng/mL CREATININE URINE/OTHERS 67.2 mg/dL 63-166 OXYCODONE (JHGVD-YSX-PB) Negative ng/mL BUPRENORPHINE (STL-PB-MA) Negative ng/mL FENTANYL (STL-PB) Negative ng/mL Jun 21, 2024 10:40 AM [facility] TSH (MA-PB) Specimen Type: SERUM No comment entered. Ordering Provider: ALFREDITO MALDONADO Report Released Date/Time: Jun 19, 2024 03:02 PM Reporting Lab: [place] [address] Performing Lab: [address] [address] TSH 1.328 u[IU]/mL 0.47-5 Jun 21, 2024 10:40 AM [facility] HGA1C Specimen Type: BLOOD No comment entered. Ordering Provider: ALFREDITO MALDONADO Report Released Date/Time: Jun 19, 2024 03:02 PM Reporting Lab: [address] [address] Performing Lab: [address] [address] HGA1C 6.4 H 4.0-6.0 Jun 21, 2024 10:40 AM [facility] URINALYSIS (L-PB) Specimen Type: URINE No comment entered. Ordering Provider: ALFREDITO MALDONADO Report Released Date/Time: Jun 19, 2024 03:02 PM Reporting Lab: [address] [address] Performing Lab: [address] [address] URINE COLOR Light-Yellow Yellow U.BILIRUBIN Negative mg/dL Negative U.PH 6.0 5.0-8.0 APPEARANCE Clear Clear U.NITRITE Negative mg/dL Negative URN.GLUCOSE 50 mg/dL H Negative URN.PROTEIN Negative mg/dL Neg ative-2 0 URN.UROBILINOGEN Normal mg/dL Normal URN.BLOOD Negative mg/dL Negat guerline-T race URN.KETONES Negative mg/dL Neg ative-T race URN.LEUK.EST. Negative mg/dL N egative-T race URN.SPECIFIC GRAVITY 1.015 1.005-1.02 9 Jun 21, 2024 10:40 AM [facility] COMPREHENSIVE METABOLIC PANEL Specimen Type: PLASMA Comment: No hemolysis noted. Ordering Provider: ALFREDITO MALDONADO Report Released Date/Time: Jun 19, 2024 03:02 PM Reporting Lab: [address] [address] Performing Lab: [address] [address] CREATININE 1.03 mg/dL 0.7-1.3 UREA NITROGEN 15.3 [...] 74.8 >60 Jun 21, 2024 10:40 AM [facility] CBC Specimen Type: BLOOD No comment entered. Ordering Provider: ALFREDITO MALDONADO Report Released Date/Time: Jun 19, 2024 03:02 PM Reporting Lab: [facility] [address] [facility] [address] Performing Lab: [address] [address] WBC 7.7 10*3/uL 3.6-11.2 RBC 4.45 10*6/uL [...] and tobacco- related health factors from the [place] facility where the Encounter took place. Current Smoking Status This section includes the most current smoking, or tobacco-related health factor, from the [place] facility where the Encounter took place. Date/Time Current Smoking Status Comment Facil ity May 26, 2021 04:12 PM ORYX ADMIT TOBACCO SCREEN NO [facility] Encounter Notes: All associated encounter notes This section contains the clinical notes associated to the Encounter. Date/Time Encounter Note(s) Provider Source Jun 17, 2024 10:48 AM NONVA NOTE: LOCAL TITLE: COMMUNITY CARE-CARE COORDINATION PLAN NOTE 657 ST[address] STANDARD TITLE: NONVA NOTE DATE OF NOTE: JUN 17, 2024@10:48 ENTRY DATE: JUN 17, 2024@10:48:37 AUTHOR: ERICH MILLER EXP COSIGNER: URGENCY: STATUS: COMPLETED Received call from vet stating he has a referral for an extraction but another tooth over the weekend needs to be extracted as well. Vet stated he will contact the dental clinic on Monday to see about adding it. /fransisco/ ERICH MILLER Signed: 06/17/2024 10:56 ERICH MILLER [facility]
--- OUTSIDE RECORDS SUMMARY | 2025-01-27 16:18 | XMS_ITS | Encounter Summary ---
Author Organization [facility] Address [address] [place] [address] Care Team Providers Care Pest Controller Name Role Phone Juan Ha MD Primary Care Provider Michelle Barbosa RN Unavailable Unavailable Juan Joshi I OD Unavailable [phone] [facility] Unavailab le Encounter Details Date Type Department Care Team (Late st Contact Info) Description 12/23/2021 Telephone [facility] [address] [place] [address] Demetrius Saini MD [address] [facility] [address] [place] [id number] Social History Tobacco Use Types Packs/Day Years [...] on filedocumented in this encounter Care Teams Pest Controller Relationship Specialty Start Date End Date Juan Ha MD PCP - General 07/04/16 Michelle Barbosa, steel wheel engraverPrincipal Systems Engineer 02/26/19 Juan Joshi I, OD [address] [facility] [place] [address] Grape Picker Low Supervisor Machining 12/21/21 [facility], Sivan Jimenez [address] [place] [address] 12/21/21 documented as of this encounter
--- OUTSIDE RECORDS SUMMARY | 2025-01-27 16:18 | XMS_ITS | Encounter Summary ---
Author Organization [facility] Address [address] [place] [address] Care Team Providers Care Toll Gate Tender Name Role Phone Juan Ha MD Primary Care Provider [phone] Encounter Details Date Type Department Care Team (Latest Contact Info) Description 11/27/2008 Outpatient Historical HIS ORTHOPEDIC TRAUMA Juan Ramos MD NO ADDRESS ON FILE Follow-Up Examination, Following Other Surgery Social History Tobacco Use Types Packs/Day Years Used Date Smoking Tobacco: Never Assessed Sex and Gender Information Value Date Recorded Sex Assigned at Not on file Legal Sex Male 5:29 AM CPA TAX Gender Identity Not on file Sexual Orientation Not on file documented as of this encounter Plan of Treatment Not on file documented as of this encounter Procedures Procedure Name Priority Date/Time Associated Diagnosis Comments XR KNEE 1 OR 2 VW RIGHT Routine 11/27/2008 2:06 PM CPA TAX documented in this encounter Results * XR KNEE 1 OR 2 VW RIGHT (11/27/2008 2:06 PM CPA TAX) Anatomical Region Laterality Modality Lower Extremity Other 11/27/2008 2:06 PM CPA TAX Narrative 11/30/2008 9:42 PM CPA TAX [facility] [address] [place], [place] [address] Admit Date: 11/27/2008 DUANE TORRES Sex: M Admit Prov: JUAN RAMOS Date: 1945 Primary Care Prov: CMRN: [id number] Room: [facility] SSN: [id number] IMAGING SERVICES Ordering Prov: JUAN RAMOS Accession Number: [id number] Interpretation This procedure was performed at the request of the orthopedic physician. Please see the orthopedic physician s report for details, which can be found in the patient s medical record. Dictated by: RADIOLOGY, DEPARTMENT O Electronically signed by: RADIOLOGY, DEPARTMENT 11/30/2008 21:41 Transcribed: 11/29/2008 20:33 AMK Procedure Note Radiology, Radiologist - 11/30/2008 [facility] [address] [place], [place] [address] Admit Date: 11/27/2008 DUANE TORRES Sex: M Admit Prov: JUAN RAMOS Date:1945 Primary Care Prov: CMRN: [id number] Room: [facility] SSN: [id number] IMAGING SERVICES Ordering Prov: JUAN RAMOS Interpretation [...] surgery documented in this encounter Care Teams Toll Gate Tender Relationship Specialty Start Date End Date Juan Ha MD PCP - General Internal Medicine 08/12/11 documented as of this encounter
--- OUTSIDE RECORDS SUMMARY | 2025-01-27 16:18 | XMS_ITS | Encounter Summary ---
Author Name [facility] [place] Organization [facility] [place] Address [address] [place] [address] Care Team Providers Care Hr Business Partner Consultant Name Role Phone SERGEI NORWOOD Primary Care [...] PART B May 13, 2014 PART B [id number] 40A NERIMatty FATIMAH PATIENT MEDICARE (WNR) MEDICARE (M) PART B May 13, 2014 PART B [id number] NERIMatty FATIMAH PATIENT MEDICARE (WNR) MEDICARE (M) PART A Aug 13, 2011 PART A [id number] 40A NERIMatty FATIMAH PATIENT MEDICARE (WNR) MEDICARE (M) PART A Aug 13, 2011 PART A [id number] Matty NERI FATIMAH PATIENT Selected Encounter This section includes the information on record at [place] for the Encounter. Date/Time Encounter Type Encounter Description Reason Pro vider Source IHE Encounter Template Text not used by [place]
--- OUTSIDE RECORDS SUMMARY | 2025-01-27 16:18 | XMS_ITS | Referral Summary ---
Author Organization [facility] [address] Address [address] [place] [address] Care Team Providers Care Veneer Grader Name Role Phone No, Physician Primary Care Provider [phone] Demetrius Espitia MD Unavailable [phone] Henry Barton MD Unavailable [phone] Encounters Date Type Department Care Team Description 12/11/2024 2:57 PM DIRECTOR DIGITAL MARKETING - 12/11/2024 11:59 PM DIRECTOR DIGITAL MARKETING Hospital Encounter [facility] [place] [address] [place] [address] Pituitary adenoma (HCC) Discharge Disposition: Discharge to home or self care 12/11/2024 1:00 PM DIRECTOR DIGITAL MARKETING Office Visit [facility] Floor 1, [address] [place] [address] Herbert Sneed MD Pituitary adenoma (HCC) (Primary Dx) 12/11/2024 7:00 AM DIRECTOR DIGITAL MARKETING - 12/11/2024 11:59 PM DIRECTOR DIGITAL MARKETING Hospital Encounter [facility] - MRI [address] [place] [address] Pituitary adenoma (HCC) Discharge Disposition: Discharge to home or self care 12/05/2024 Telephone [facility] Floor 1, [address] [place] [address] Herbert Sneed MD 11/26/2024 Orders Only [facility] Floor 1, [address] [place] [address] Herbert Sneed MD Pituitary adenoma (HCC) (Primary Dx) 11/11/2024 Orders Only [facility] [address] [facility] 6th [place] [address] [place] [address] Herbert Sneed MD Pituitary adenoma [...] neuropathy 09/18/2017 Overview (03/18/2022): Overview: Neurologist at [facility] Neurologist at [facility] Other chronic pain 09/18/2017 Primary osteoarthritis of [...] on file Legal Sex Male 7:17 AM DIRECTOR DIGITAL MARKETING Gender Identity Not on file Sexual Orientation Not on file Last Filed Vital Signs Vital Sign Reading Time Taken Comments Blood Pressure 112/70 12/11/2024 12:18 PM DIRECTOR DIGITAL MARKETING Pulse 89 12/11/2024 12:18 PM DIRECTOR DIGITAL MARKETING Temperature 36.3 C (97.4 F) 12/11/2024 12:18 PM DIRECTOR DIGITAL MARKETING Respiratory Rate 16 01/11/2019 11:45 AM DIRECTOR DIGITAL MARKETING Oxygen Saturation 98% 01/04/2024 9:02 AM DIRECTOR DIGITAL MARKETING Inhaled Oxygen Concentration - - Weight 122.5 kg (270 lb) 12/11/2024 12:18 PM DIRECTOR DIGITAL MARKETING Height 200.7 cm (6' 7 ) 12/11/2024 12:18 PM DIRECTOR DIGITAL MARKETING Body Mass Index 30.42 12/11/2024 12:18 PM DIRECTOR DIGITAL MARKETING Plan of Treatment Not on file Medical Devices Implanted Type Area Data Center Architect Device Identifier Shelf Expiration Date Model / Serial / Lot Bilateral Total Knee Arthroplasty Bilateral : Knee Procedures Procedure Name Priority Date/Time Associated Diagnosis Comments CT SOFT TISSUE NECK W CONTRAST Schedule Routine, Read Routine (OP Routine) 12/11/2024 3:56 PM DIRECTOR DIGITAL MARKETING Pituitary adenoma (HCC) MRI BRAIN W WO CONTRAST (PITUITARY) Schedule Routine, Read Routine (OP Routine) 12/11/2024 7:46 AM DIRECTOR DIGITAL MARKETING Pituitary adenoma (HCC) COLONOSCOPY 01/11/2019 7:11 AM DIRECTOR DIGITAL MARKETING from Last 3 Months or Most Recently Relevant to Health Maintenance Results * CT Neck Soft Tissue W Contrast (12/11/2024 3:56 PM DIRECTOR DIGITAL MARKETING) Anatomical Region Laterality Modality Head and Neck N/A Computed Tomogra phy 12/11/2024 5:00 PM DIRECTOR DIGITAL MARKETING Impressions 12/11/2024 5:43 PM DIRECTOR DIGITAL MARKETING Homogeneously enhancing lesion splaying the left external [...] Sergio Piedra M.D. 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 Narrative 12/11/2024 12:54 PM DIRECTOR DIGITAL MARKETING EXAMINATION: Magnetic resonance imaging (MRI) of the [...] Final Result * COLONOSCOPY (01/11/2019 7:11 AM DIRECTOR DIGITAL MARKETING) Anatomical Region Laterality Modality Other Narrative Procedure Note Cedric Frausto MD PhD - 01/11/2019 7:11 AM CST [facility] Patient Name: Duane Torres Procedure Date: 01/11/2019 7:11 AM Date of : 1945 Admit Type: Outpatient Age: 73 Gender: Male Attending MD: Cedric Frausto MD, PHD Room: [facility] OPERATING ROOM 02 Note Status: Finalized Procedure: [...] The scope was passed under direct vision.The [id number] Endoscope was introduced throughthe anus and advanced [...] On: 01/11/2019 7:11 AM Recognized by the [employer] for promoting quality in endoscopy Cedric Frausto MD PhD ENDOSCOPY PROCEDURES Final Result from Last 3 Months or Most Recently Relevant to Health Maintenance Insurance MEDICARE [employer] [facility] [employer] [facility] MEDICARE [facility] MEDICARE [facility] Care Teams Veneer Grader Relationship Specialty Start Date End Date No, Physician PCP - General 07/26/23 Demetrius Espitia MD Radiation Oncologist Radiation Oncology 07/26/23 Henry Barton MD [address] [place] [address] Consulting Physician Urology 07/26/23
--- OUTSIDE RECORDS SUMMARY | 2025-01-27 16:18 | XMS_ITS | Encounter Summary ---
Author Organization [facility] Address [address] [place] [address] Care Team Providers Care Floor Framer Name Role Phone Juan Ha MD Primary Care Provider [phone] Encounter Details Date Type Department Care Team (Late st Contact Info) Description 03/30/2009 Outpatient Historical HIS ORTHOPEDIC TRAUMA Juan Ramos MD NO ADDRESS ON FILE Social History Tobacco Use Types Packs/Day Years Used Date Smoking Tobacco: Never Assessed Sex and Gender Information Value Date Recorded Sex Assigned at Not on file Legal Sex Male 5:29 AM CLINICAL SECRETARY Gender Identity Not on file Sexual Orientation [...] PM CDT Narrative 04/27/2009 5:34 PM CDT [address] [address] Admit Date: 03/30/2009 DUANE TORRES Sex: M Admit Prov: JUAN RAMOS Date: 1945 Primary Care Prov: CMRN: [id number] Room: [facility] SSN: [id number] IMAGING SERVICES Ordering Prov: JUAN RAMOS Accession Number: [id number] Interpretation This procedure was performed at the request of the orthopedic physician. Please see the orthopedic physician s report for details, which can be found in the patient s medical record. Dictated by: RADIOLOGY, DEPARTMENT O Electronically signed by: RADIOLOGY, DEPARTMENT 04/27/2009 17:32 Transcribed: 04/27/2009 15:44 AMK Procedure Note Radiology, Radiologist - 04/27/2009 [facility] [address] [place], [place] [address] Admit Date: 03/30/2009 TORRES DUANE Oscar Sex: M Admit Prov: JUAN RAMOS Date:1945 Primary Care Prov: CMRN: [id number] Room: [facility] SSN: [id number] IMAGING SERVICES Ordering Prov: JUAN RAMOS Interpretation This procedure was performed at the request of the orthopedicphysician. Please see the orthopedic physician s report for details, which canbe found in the patient s medical record. Dictated by: RADIOLOGY, DEPARTMENT O Electronically signed by: RADIOLOGY, DEPARTMENT 04/27/2009 17:32 Transcribed: 04/27/2009 15:44 AMK Juan Ramso MD DIAGNOSTIC IMAGING ORDERABLES Fi nal Result documented in this encounter Visit Diagnoses Not on filedocumented in this encounter Care Teams Floor Framer Relationship Specialty Start Date End Date Juan Ha MD PCP - General Internal Medicine 08/12/11 documented as of this encounter
--- OUTSIDE RECORDS SUMMARY | 2025-01-27 16:18 | XMS_ITS | Encounter Summary ---
Author Organization [facility] Address [address] [place] [address] Care Team Providers Care Activated Sludge Operator Name Role Phone Juan Ha MD Primary Care Provider [phone] Encounter Details Date Type Department Care Team (Late st Contact Info) Description 09/25/2008 Outpatient Historical HIS ORTHOPEDIC TRAUMA Juan Burnett MD NO ADDRESS ON FILE Social History Tobacco Use Types Packs/Day Years Used Date Smoking Tobacco: Never Assessed Sex and Gender Information Value Date Recorded Sex Assigned at Not on file Legal Sex Male 5:29 AM DINING SERVICES DIRECTOR Gender Identity Not on file Sexual Orientation Not on file documented as of this encounter Plan of Treatment Not on file documented as of this encounter Visit Diagnoses Not on filedocumented in this encounter Care Teams Activated Sludge Operator Relationship Specialty Start Date End Date Juan Ha MD PCP - General Internal Medicine 08/12/11 documented as of this encounter
--- OUTSIDE RECORDS SUMMARY | 2025-01-27 16:18 | XMS_ITS | Encounter Summary ---
Author Name [facility] [place] Address [address] [place] [address] Care Team Providers Care Cork Insulator Name Role Phone SERGEI NORWOOD Primary Care [...] PART B May 13, 2014 PART B [id number] 40A NERIMatty FATIMAH PATIENT MEDICARE (WNR) MEDICARE (M) PART B May 13, 2014 PART B [id number] Matty NERI FATIMAH PATIENT MEDICARE (WNR) MEDICARE (M) PART A Aug 13, 2011 PART A [id number] 40A NERIMatty FATIMAH PATIENT MEDICARE (WNR) MEDICARE (M) PART A Aug 13, 2011 PART A [id number] Matty NERI FATIMAH PATIENT Selected Encounter This section includes the information on record at [place] for the Encounter. Date/Time Encounter Type Encounter Description Reason Provider Source Jan 14, 2025 11:01 AM MTMS BY PHARM EST 15 MIN CLINICAL PHARMACY ICD-10-CM Z79.891 USP (current) use of opiate analgesic CASH WOLFE [facility] Encounter Template Text not used by [place] Assessments - Encounter Diagnoses This section includes the primary and secondary diagnoses documented for the Encounter. Date/Time Primary/Secondary Diagnosis Diagnosis Name Provider Source Jan 14, 2025 11:06 AM PRIMARY termite helper (current) use of opiate analgesic CASH WOLFE [facility] Jan 14, 2025 11:06 AM SECONDARY Chronic pain syndrome CASH WOLFE [facility] Jan 14, 2025 11:06 AM SECONDARY Fibromyalgia CASH WOLFE [facility] Plan of Treatment: Future Appointments (+ 6 months) and Future Tests (+/- 45 days) The Plan of Treatment section includes future care activities for the patient from all [place] [facility]. This section includes future appointments and future orders which are active, pending or scheduled. Future Appointments This section includes appointments that were scheduled to occur 6 months from the date of the Encounter, up to a maximum of 20 appointments. The data comes from all [facility]. Appointment Date/Time Appointment Type Appointme nt Facility Name Jan 15, 2025 03:40 PM AMBULATORY - MEDICINE [facility] Jan 28, 2025 02:00 PM AMBULATORY - SURGERY [facility] Feb 05, 2025 03:00 PM AMBULATORY - MEDICINE [facility] Feb 12, 2025 01:45 PM AMBULATORY - MEDICINE [facility] Feb 13, 2025 01:00 PM AMBULATORY - SURGERY [facility] Mar 05, 2025 11:15 AM AMBULATORY - RE[facility]AB [facility] March 26, 2025 11:20 AM AMBULATORY - SURGERY [facility] Apr 18, 2025 10:45 AM AMBULATORY - MEDICINE [facility] May 07, 2025 02:00 PM AMBULATORY - REHAB MEDICIN [facility] Active, Pending, and Scheduled Orders This section [...] Test Type Test Details Facility Name Jan 27, 2025 09:01 AM Consult Order CONTACT GILBERT STEWART - PRO Cons Electronics Repair Technician's Choice [facility] Feb 24, 2025 12:00 AM Laboratory - Chemi stry Order PROST. SPECIFIC AG.(PB-STL) GOLD/RED SST SERUM SP [facility] Social History: Smoking Status (Most current) [...] Facil ity Apr 29, 2024 11:00 AM [place]-TOBAC[place] QUIT [address] [facility] Tobacco Use History This section includes a history of the smoking, or tobacco-related health factors, that were collected on or before the date of the Encounter. The data comes from the [place] facility where the Encounter took place. Date/Time Smoking Status/Tobacco Use Comment F acharsh Apr 29, 2024 11:00 AM [place]-TOBAC[place] QUIT [address] [facility] Encounter Notes: All associated encounter notes This section contains the clinical notes associated to the Encounter. Date/Time Encounter Note(s) Provider Source Jan 14, 2025 11:01 AM PHARMACY NOTE: LOCAL TITLE: CONTROLLED SUBSTANCES PRESCRIBING STL STANDARD TITLE: PHARMACY NOTE DATE OF NOTE: JAN 14, 2025@11:01 ENTRY DATE: JAN 14, 2025@11:01:47 AUTHOR: CASH WOLFE COSIGNER: URGENCY: STATUS: COMPLETED Pt is a 79 year old male w/ Fibromyalgia, Arthritic Pain, Neuropathy. Pt contacted pharmacy contact center regarding hydrocodone/APAP order. Pt is currently not exhibting any abberant behavior. Noted that pt did not schedule his next f/u appt w/ me at last appt on 11/22/24. Placed a new RTC for 03/05/25 for face to face visit. Will place new order for Dr. Jimenez's signature, due now. Opioid Prescription - Greater than 1 opioid prescription in past 90 days (i.e.,CHRONIC patients, multiple short-term prescriptions) A PDMP query, opioid risk review and evaluation of efficacy & safety for continued opioid use is required for renewals, refills or new scripts within 90 days. Please complete all sections and sign the note if the benefits outweigh the risk. Step 1: Review of the State Prescription Drug Monitoring Program: Prog Note DT Title Author Last Jose DT 11/22/2024 STATE PRESCRIPTION DRUG CASH WOLFE MONITORING PROGRAM 12/09/2020 STATE PRESCRIPTION DRUG BILL FALL MONITORING PROGRAM (SPDMP) Is the State Prescription Drug Monitoring Program Database Query current according to local [facility] policy? Yes Step 2: Opioid Risk Review *Has the patient's risk related to opioid use increased since the last prescription? No *Is the patient experiencing side effects with current opioid therapy? No *Is the patient adherent to the treatment plan? Yes *Are functional goals being met? Yes Urine drug screen completed and reviewed, when applicable VA/DoD CPG for LTOT for Chronic Pain STRONGLY recommends use of UDS as part of risk mitigation strategies upon initiation and with continuation of long-term opioid therapy; local STL policy require UDS to be done at a minimum of twice annually. (If available, aberrant findings should be documented with plan) Last urine drug screen: AMPHET/METHAMPHETAMINE Negative ng/mL 09/27/2024 15:15 AMPHET/METHAMPHETAMINE Negative ng/mL 06/21/2024 10:44 AMPHET/METHAMPHETAMINE Negative ng/mL 03/06/2024 10:41 BENZODIAZEPINES (STL) Negative ng/mL 09/27/2024 15:15 BENZODIAZEPINES (STL) Negative ng/mL 06/21/2024 10:44 BENZODIAZEPINES (STL) Negative ng/mL 03/06/2024 10:41 CANNABINOIDS Negative ng/mL 09/27/2024 15:15 CANNABINOIDS Negative ng/mL 06/21/2024 10:44 CANNABINOIDS Negative ng/mL 03/06/2024 10:41 COCAINE METABOLITES Negative ng/mL 09/27/2024 15:15 COCAINE METABOLITES Negative ng/mL 06/21/2024 10:44 COCAINE METABOLITES Negative ng/mL 03/06/2024 10:41 METHADONE Negative ng/mL 09/27/2024 15:15 METHADONE Negative ng/mL 06/21/2024 10:44 METHADONE Negative ng/mL 03/06/2024 10:41 OPIATES POSITIVE ng/mL 09/27/2024 15:15 OPIATES POSITIVE ng/mL 06/21/2024 10:44 OPIATES >1000-POS ng/mL 03/06/2024 10:41 OXYCODONE (JYOLO-JBZ-WO) Negative ng/mL 09/27/2024 15:15 OXYCODONE (RDIFD-KKS-HS) Negative ng/mL 06/21/2024 10:44 OXYCODONE (NZMRG-FYH-NL) Negative ng/mL 03/06/2024 10:41 BUPRENORPHINE (STL-PB-MA) Negative ng/mL 09/27/2024 15:15 BUPRENORPHINE (STL-PB-MA) Negative ng/mL 06/21/2024 10:44 BUPRENORPHINE (STL-PB-MA) Negative 03/06/2024 10:41 FENTANYL (STL) Negative ng/mL 09/27/2024 15:15 FENTANYL (STL) Negative ng/mL 06/21/2024 10:44 FENTANYL (STL) Negative ng/mL 03/06/2024 10:41 CREATININE URINE/OTHERS 183.4 H mg/dL 12/11/2024 11:38 CREATININE URINE/OTHERS 115.1 mg/dL 09/27/2024 15:15 CREATININE URINE/OTHERS 67.2 mg/dL 06/21/2024 10:44 CREATININE URINE/OTHERS 100.9 mg/dL 03/06/2024 10:41 CREATININE URINE/OTHERS 92.8 mg/dL 02/28/2024 13:12 ETHANOL Negative mg/dL 09/27/2024 15:15 ETHANOL Negative mg/dL 06/21/2024 10:44 ETHANOL Negative mg/dL 03/06/2024 10:41 Yes Has the Consent for Long-Term Opioids been completed? Note, consent not required when treating cancer pain or for Hospice patients Yes VA/DoD CDC guidelines for opioid prescribing for chronic pain recommend f/u within 1-4 weeks for opioid dosage changes and =3 months for stable renewals, at a minimum, and more frequently if clinically indicated. RTC: Future Appointments: 01/15/2025 15:40 DOUG-ENDOCRINOLOGY MUEGGE 01/28/2025 14:00 PRO-PODIATRY JODY 02/05/2025 15:00 DOUG-ENDOCRINOLOGY MUEGGE 02/12/2025 13:45 DOUG-OLV DERM CLINIC 02/13/2025 13:00 PRO-OPTOMETRY 2 03/26/2025 11:20 DOUG-UROLOGY MD RES 04/18/2025 10:45 DOUG-OLV DERM CLINIC 05/07/2025 14:00 PRO-PACT BHARATI TM 4 PCP 08/06/2025 10:00 DOUG-DENTAL HYG 3 10/13/2025 13:00 PRO-OPTOMETRY CONTACT LENS 10/23/2025 10:30 PRO-PAIN MGMT TEAM P1 Follow up appointment already scheduled. time spent in chart review: 5 minutes PBM PharmD Pharmacotherapy Rem V12: PHARMACIST INTERVENTIONS: PAIN MANAGEMENT Medication Intervention(s) Opioid pain medication intervention(s) Medication monitoring, no dosage change required, continue to monitor and assess /es/ CASH WOLFE PHARM.D., BCPS, BCACP CLINICAL ENERGY OPERATIONS VICE PRESIDENT - PAIN MANAGEMENT Signed: 01/14/2025 11:07 CASH WOLFE [facility]
--- OUTSIDE RECORDS SUMMARY | 2025-01-27 16:18 | XMS_ITS | Encounter Summary ---
Author Name [place] Address [address] [place] [address] Care Team Providers Care Clamshell Operator Name Role Phone SERGEI NORWOOD Primary Care [...] PART B May 13, 2014 PART B [id number] 40A NERIMatty FATIMAH PATIENT MEDICARE (WNR) MEDICARE (M) PART B May 13, 2014 PART B [id number] Matty NERI FATIMAH PATIENT MEDICARE (WNR) MEDICARE (M) PART A Aug 13, 2011 PART A [id number] 40A Matty NERI FATIMAH PATIENT MEDICARE (WNR) MEDICARE (M) PART A Aug 13, 2011 PART A [id number] Matty NERIIEL PATIENT Selected Encounter This section includes the information on record at [place] for the Encounter. Date/Time Encounter Type Encounter Description Reason Provider Source Oct 17, 2024 10:30 AM OFFICE O/P EST HI 40 MIN PAIN CLINIC ICD-10-CM Z79.891 termite renewal inspector (current) use of opiate analgesic [place] GALE [place] [facility] Encounter Template Text not used by [place] Assessments - Encounter Diagnoses This section includes the primary and secondary diagnoses documented for the Encounter. Date/Time Primary/Secondary Diagnosis Diagnosis Name Provider Source Oct 17, 2024 11:58 AM PRIMARY skilled nursing (current) use of opiate analgesic [place] SHE[place] [facility] Oct 17, 2024 11:58 AM SECONDARY Chronic pain syndrome [place] SHE[place] [facility] Oct 17, 2024 11:58 AM SECONDARY Fibromyalgia [place] [facility] [facility] Plan of Treatment: Future Appointments (+ 6 months) and Future Tests (+/- 45 days) The Plan of Treatment section includes future care activities for the patient from all [place] [facility]. This section includes future appointments and future orders which are active, pending or scheduled. Future Appointments This section includes appointments that were scheduled to occur 6 months from the date of the Encounter, up to a maximum of 20 appointments. The data comes from all [place] treatment facilities. Appointment Date/Time Appointment Type Appointme nt Facility Name Oct 25, 2024 02:00 PM AMBULATORY - SURGERY [facility] Nov 22, 2024 10:30 AM AMBULATORY - REHAB MEDICIN E [facility] Nov 25, 2024 11:00 AM AMBULATORY - REHAB MEDICIN E [facility] Jan 15, 2025 03:40 PM AMBULATORY - MEDICINE [facility] Jan 28, 2025 02:00 PM AMBULATORY - SURGERY [facility] Feb 05, 2025 03:00 PM AMBULATORY - MEDICINE [facility] Feb 12, 2025 01:45 PM AMBULATORY - MEDICINE [facility] Feb 13, 2025 01:00 PM AMBULATORY - SURGERY [facility] Mar 05, 2025 11:15 AM AMBULATORY - REHAB MEDICIN E [facility] March 26, 2025 11:20 AM AMBULATORY - SURGERY [facility] Active, Pending, and Scheduled Orders This section includes a listing of several types of active, pending, and scheduled orders, including clinic medications orders, diagnostic test orders, procedure orders and consult orders; where the start date of the order is 45 days before the date of the Encounter or 45 days after the date of theEncounter. The data comes from all [place] treatment facilities. Test Date/Time Test Type Test Details Facility Name Sep 02, 2024 12:00 AM Laboratory - Chemi stry Order URINE DRUG SCREEN (STL) URINE YELLOW SP [facility] Oct 17, 2024 12:00 AM Laboratory - Chemi stry Order LIPID PANEL (STL) GREEN LI/HEP BLD/PLAS PLASMA SP [facility] Lab Results: +/- 30 days of [...] Range Comment Sep 27, 2024 03:15 PM [facility] URINE DRUG SCREEN (STL) Specimen Type: URINE Comment: The cut-off value for Fentanyl was laboratory developed and its performance characteristics confirmed by the [facility] laboratory thru method comparison with reference laboratory and medication chart review. The laboratory is regulated under CLIA as qualified to perform high-complexity testing. Fentanyl is used for clinical purposes in conjunction with other laboratory tests. Ordering Provider: SCOTTIE BULLOCK Report Released Date/Time: Sep 26, 2024 09:24 AM Reporting Lab: [facility] [address] [address] Performing Lab: [facility] [address] [id number] ETHANOL Negative mg/dL 0-20 AMPHET/METHAMPHE TAMINE Negative ng/mL COCAINE METABOLITES Negative ng/mL BENZODIAZEPINES (STL) Negative ng/mL CANNABINOIDS Negative ng/mL METHADONE Negative ng/mL OPIATES POSITIVE ng/mL CREATININE URINE/OTHERS 115.1 mg/dL 63-166 OXYCODONE (YHPIG-REH-LA) Negative ng/mL BUPRENORPHINE (STL-PB-MA) Negative ng/mL FENTANYL (STL-PB) Negative ng/mL Sep 27, 2024 03:13 PM [facility] PROST. SPECIFIC AG.(PB-STL) Specimen Type: SERUM Comment: The listed sex of this patient may not be a typical indication for this test. Therefore, reference ranges or interpretive criteria listed may not be valid. Clinical correlation suggested. Ordering Provider: HARIS MCMULLEN Report Released Date/Time: Sep 27, 2024 02:58 PM Reporting Lab: [facility] [address] [address] Performing Lab: [facility] [address] [address] PROST. SPECIFIC AG.(PB-STL) 0.118 ng/mL 0-4 Vital Signs: All taken on the encounter date This section contains inpatient and outpatient Vital Signs collected on the date of the Encounter. Date/Time Temperature Pulse Blood Pressure Respiratory Rate SP02 Pain Height Weight Body Mass Index Source Oct 17, 2024 10:51 AM 97.9 82 120/73 18 98 3 [facility] Social History: Smoking Status (Most current) and Tobacco Use (All prior to encounter date) This section includes the most current, and the historical, smoking and tobacco- related health factors from the [place] facility where the Encounter took place. Current Smoking Status This section includes the most current smoking, or tobacco-related health factor, from the [place] facility where the Encounter took place. Date/Time Current Smoking Status Comment Amol alston Apr 29, 2024 11:00 AM [place]-TOBACCO FORMER USER [facility] Tobacco Use History This section includes a history of the smoking, or tobacco-related health factors, that were collected on or before the date of the Encounter. The data comes from the [place] facility where the Encounter took place. Date/Time Smoking Status/Tobacco Use Comment Chikis drew Apr 29, 2024 11:00 AM [place]-TOBACCO QUIT 15 YRS OR MORE [facility] Encounter Notes: All associated encounter notes This section contains the clinical notes associated to the Encounter. Date/Time Encounter Note(s) Provider Source Oct 17, 2024 10:34 AM ACCOUNTING OF DISC LOSURES NOTE: LOCAL TITLE: STATE PRESCRIPTION DRUG MONITORING PROGRAM STANDARD TITLE: ACCOUNTING OF DISCLOSURES NOTE DATE OF NOTE: OCT 17, 2024@10:34:59 ENTRY DATE: OCT 17, 2024@10:34:59 AUTHOR: [place] SHETH EXP COSIGNER: URGENCY: STATUS: COMPLETED This PDMP query was submitted by [place] Sheth. The clinical justification for this PDMP query is to review controlled substances prescribed outside of the [place], and any additional information that may become available, as an important component of standard clinical care, and in accordance with [facility] policy. Patient information was shared with the PDMP [place]. No prescription(s) for controlled substances outside the [place] were found in the last 90 days. /fransisco/ [place] SHETH Pain Mgmt Physician Signed: 10/17/2024 10:35 [place] [facility] Oct 17, 2024 10:31 AM PAIN NOTE: LOCAL TITLE: PAIN REHAB CTR CLINIC F/U [facility] STANDARD TITLE: PAIN NOTE DATE OF NOTE: OCT 17, 2024@10:31 ENTRY DATE: OCT 17, 2024@10:31:10 AUTHOR: [place] SHETH EXP COSIGNER: URGENCY: STATUS: COMPLETED OUTPATIENT PAIN MANAGEMENT CLINIC FOLLOW UP NOTE Patient identifiers: full name and birthdate CC: f/u for chronic widespread pain Subjective: Pt presents today for f/u for chronic pain. Has hx of prostate cancer s/p radiation. He previously was following with Dr Bullock and follows with pain pharmacy. He has hx of widespread pain including LBP, fibromyalgia, diabetic neuropathy, and arthritic pain. He would prefer to increase his norco from BID to TID as he had done prior. He would like the option of having a third dose. He states the norco allows him to help him work around his house. He reports he weaned himself down from TID to BID before because he felt he wasn't feeling as bad. He states his baseline pain is at a 2/10. He states he is able to do his recreational activities better. States he had dizziness which improved with discontinuing his statin. Medications: voltaren gel, cymbalta 60 mg qday, norco 7.5/325 BID prn (previously was taking 2-4x/day per notes), lyrica 75 mg BID, tizanidine 2 mg BID, lidoderm, salon pas Physical Therapy: EMG/Imaging: Surgeries: B/L TKA Interventions/Injections: Assistive Devices: Sleep: ROS: no f/chills. 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 - Vet: [employer] - Family: cares for granddaughter. lives with . - Use: Tobacco - quit smoking tob 15-20yrs ago. EtOH - 1 drink / mo. Allergies: SIMVASTATIN, ATORVASTATIN, ROSUVASTATIN, PRAVASTATIN Active Outpatient Medications (including Supplies): CAMPHOR 0.5/MENTHOL 0.5% LOTION APPLY LIGHTLY TO AFFECTED ACTIVE AREA(S) THREE TIMES A DAY FOR ITCHING - (EXTERNAL USE ONLY) APPLY TO ARMS CETIRIZINE HCL 10MG TAB TAKE ONE TABLET BY MOUTH TWICE A ACTIVE DAY FOR ALLERGY SYMPTOMS CHOLECALCIF 50MCG (D3-2,000UNIT) TAB TAKE TWO TABLETS BY ACTIVE MOUTH ONCE A DAY FOR VITAMIN D DEFICIENCY CLOBETASOL PROPIONATE 0.05% OINT APPLY LIGHTLY TO AFFECTED ACTIVE AREA(S) TWICE A DAY FOR ECZEMA (EXTERNAL USE ONLY) CLOBETASOL PROPIONATE 0.05% TOP SOLN APPLY LIGHTLY TO ACTIVE AFFECTED AREA(S) ONCE A DAY NEEDED SCALP ITCHING (EXTERNAL USE ONLY) CYANOCOBALAMIN 1000MCG TAB TAKE ONE TABLET BY MOUTH ONCE A ACTIVE DAY FOR B12 SUPPLEMENTATION DICLOFENAC NA 1% TOP GEL APPLY 4 GM TO AFFECTED AREA(S) ACTIVE FOUR TIMES A DAY NEEDED FOR PAIN/INFLAMMATION; NOT MORE THAN 16 GRAMS DAILY TO ANY LOWER EXTREMITY JOINT. NOT MORE THAN 8 GRAMS DAILY TO ANY UPPER EXTREMITY JOINT. MAX 32GM/DAY OVER ALL JOINTS. (MEASURE DOSE WITH RULER ATTACHED INSIDE BOX) OVER HANDS AND SHOULDERS NEEDED FOR PAIN DULOXETINE HCL 60MG EC CAP TAKE ONE CAPSULE BY MOUTH ONCE ACTIVE A DAY DO NOT ABRUPTLY DISCONTINUE MEDICATION. HYDROCODONE 7.5/ACETAMINOPHEN 325MG TAB TAKE 1 TABLET BY ACTIVE MOUTH TWICE DAILY NEEDED FOR PAIN. CAUTION: DO NOT EXCEED 4000MG PER DAY ACETAMINOPHEN (APAP) FROM ALL MEDS. KETOCONAZOLE 2% SHAMPOO USE SHAMPOO TO AFFECTED AREA(S) ACTIVE ONCE A DAY NEEDED FOR DANDRUFF *LET SIT FOR 3-5 MINUTES ON SCALP, THEN RINSE* (EXTERNAL USE ONLY) (SHAKE WELL) LIDOCAINE 5% PATCH APPLY 1-3 PATCHES TO SKIN SITE ONCE A ACTIVE DAY NEEDED FOR PAIN APPLY PATCH AND PRESS FIRMLY FOR 10-15 SECONDS. KEEP ON FOR 12 HOURS THEN REMOVE PATCH FOR 12 HOURS. METFORMIN HCL 1000MG TAB TAKE ONE TABLET BY MOUTH TWICE A ACTIVE DAY WITH MEALS FOR BLOOD SUGAR CONTROL. TAKE WITH FOOD. AVOID ALCOHOL. DISCONTINUE BEFORE GETTING XRAY DYE. MUPIROCIN 2% OINT APPLY LIBERALLY TO AFFECTED AREA(S) ACTIVE (S) TWICE A DAY FOR BACTERIAL INFECTION EXTERNAL USE ONLY. PETROLATUM (WHITE) OINT APPLY LIGHTLY TO AFFECTED AREA(S) ACTIVE TWICE A DAY FOR DRY SKIN POLYETHYLENE GLYCOL 3350 ORAL PWDR MIX AND DRINK 1 CAPFUL ACTIVE BY MOUTH ONCE A DAY TO PREVENT CONSTIPATION. (MEASURE WITH CAP AND MIX IN 8 OZ OF WATER) PRAVASTATIN NA 40MG TAB TAKE ONE-HALF TABLET BY MOUTH ACTIVE EVERY EVENING FOR HIGH CHOLESTEROL SALONPAS PAIN RELIEF PATCH APPLY 1 PATCH TO SKIN SITE ACTIVE THREE TIMES A DAY NEEDED (EXTERNAL USE ONLY) SEMAGLUTIDE 1MG/0.75ML INJ PEN 3ML INJECT 1MG UNDER THE ACTIVE SKIN EVERY WEEK SODIUM FLUORIDE 1.1% (FL 0.5%) DENT GEL APPLY SPARINGLY BY ACTIVE MOUTH TWICE A DAY FOR DENTAL CARE - AFTER BRUSHING TEETH; APPLY SPARINGLY; DO NOT EAT, DRINK OR RINSE FOR 30 MINUTES AFTER APPLICATION TAMSULOSIN HCL 0.4MG CAP TAKE ONE CAPSULE BY MOUTH EVERY ACTIVE EVENING APPROXIMATELY 30 MINUTES AFTER THE SAME MEAL EACH DAY (FOR PROSTATE) TIZANIDINE HCL 4MG TAB TAKE ONE-HALF TABLET BY MOUTH TWICE ACTIVE DAILY NEEDED FOR SPASTICITY Non-VA CIPROFLOXACIN 0.3/DEXAM 0.1% OTIC SUSP 4 DROPS TO ACTIVE AFFECTED EAR(S) TWICE A DAY Objective: Today's Vitals: VSD - Detailed Vitals Date Vital Measurement Qualifiers 09/27/2024 14:23 Temp F (C) 97.9 (36.6) Pulse 85 Respir 18 BP 114/74 Ht in (cm) 79 (200.66) Wt lbs (kg)[BMI] 262.7 (119.16)[30*] Pain 0 POx (L/Min)(%) 100 General: awake, alert, in NAD. CV: extremities well perfused Lungs: nonlabored breathing Mood/Affect: normal SKIN: no erythema or rash Labs reviewed. UDS as expected. A&P: 79 yo M with chronic widespread pain on termite renewal inspector opioids. Low back pain Fibromyalgia Diabetic neuropathy Chronic pain syndrome termite renewal inspector use of opiate Pt presents today for chronic widespread pain. He is currently on norco 7.5/325 BID. Previously was taking 2-4x/day per notes and per pt. He requests increase in frequency of his norco back to TID from BID dosing as pt reports he was able to function better on his TID dosing. Discussed trial of increasing his lyrica dose to 100 mg BID and will provide additional tablets of norco to take on a rare basis at TID level when pain is severe. Pt to monitor for any increased drowsiness with dose change of lyrica. Pt agreeable to plan. - Naloxone rescue kit last filled 03/11/24 - Opioid consent: 06/22/21 - Last methadone panel: 09/27/24 - Last PDMP: 10/17/24 - Last risk review: STORM Risk Score: low RIOSORD Score: 7, class 1 - Aberrant Behavior: Yes() No (x) -Return to clinic: with pain pharm - continue to uptitrate lyrica as tolerated Patient educated, agrees and understands assessment and plan A total of 40 minutes was spent on the date of this encounter including but not limited to face to face time with the patient, chart review, care planning with/for the patient and documentation in the medical record. /fransisco/ [place] SHE[facility] Pain Mgmt Physician Signed: 10/17/2024 11:58 Receipt Acknowledged By: 10/17/2024 13:08 /fransisco/ CASH WOLFE PHARM.D., BCPS, BCACP CLINICAL POWDER COAT PAINTER - PAIN MANAGEMENT [place] [facility]
--- OUTSIDE RECORDS SUMMARY | 2025-01-27 16:18 | XMS_ITS | Encounter Summary ---
Author Organization [facility] Address [address] [place] [address] Care Team Providers Care Credit Clerk Name Role Phone Juan Ha MD Primary Care Provider [phone] Michelle Barbosa RN Unavailable Unavailable Juan Joshi I OD Unavailable [phone] [facility]ly [facility] Unavailab le Encounter Details Date Type Department Care Team (Late st Contact Info) Description 12/23/2021 Telephone [facility] [address] [place] [address] Demetrius Saini MD [address] [facility] [address] [place] [id number] Social History Tobacco Use Types Packs/Day Years [...] on filedocumented in this encounter Care Teams Credit Clerk Relationship Specialty Start Date End Date Juan Ha MD PCP - General 07/04/16 Michelle Barbosa, information systems plannerCake Icer And Packer 02/26/19 Juan Joshi I, OD [address] [facility] [place] [address] Mechanical Engineering Professor Low Plating Operator 12/21/21 [facility], Sivan Jimenez [address] [place] [address] 12/21/21 documented as of this encounter
--- OUTSIDE RECORDS SUMMARY | 2025-01-27 16:18 | XMS_ITS | Clinical Summary ---
Author Organization [address] Address [address] [place] [id number] Care Team Providers Care Boring Machine Set Up Operator Jig Name Role Phone No, Physician Primary Care Provider [phone] Demetrius Espitia MD Unavailable [phone] Henry Barton MD Unavailable [phone] Allergies Active Allergy Reactions Criticality Noted [...] neuropathy 09/18/2017 Overview (03/18/2022): Overview: Neurologist at [facility] Neurologist at [facility] Other chronic pain 09/18/2017 Primary osteoarthritis of [...] Department Care Team Description 12/11/2024 2:57 PM SAP SOLUTION MANAGER CONSULTANT - 12/11/2024 11:59 PM SAP SOLUTION MANAGER CONSULTANT Hospital Encounter [facility] [place] [address] [facility] Floor 8 [place] [address] Pituitary adenoma (HCC) Discharge Disposition: Discharge to home or self care 12/11/2024 1:00 PM SAP SOLUTION MANAGER CONSULTANT Office Visit [facility] [address] [facility] Floor 1, [address] [place] [address] Herbert Sneed MD Pituitary adenoma (HCC) (Primary Dx) 12/11/2024 7:00 AM SAP SOLUTION MANAGER CONSULTANT - 12/11/2024 11:59 PM SAP SOLUTION MANAGER CONSULTANT Hospital Encounter [facility] - MRI [address] [facility] Floor 8 [place] [address] Pituitary adenoma (HCC) Discharge Disposition: Discharge to home or self care 12/05/2024 Telephone [facility] [address] [facility] Floor 1, [address] [place] [address] Herbert Sneed MD 11/26/2024 Orders Only [facility] [address] [facility] Floor 1, [address] [place] [address] Herbert Sneed MD Pituitary adenoma (HCC) (Primary Dx) 11/11/2024 Orders Only [facility] [address] [facility] 6th [place] [address] [place] [address] Herbert Sneed MD Pituitary adenoma [...] on file Legal Sex Male 7:17 AM SAP SOLUTION MANAGER CONSULTANT Gender Identity Not on file Sexual Orientation Not on file Obstetrics History Last Filed Vital Signs Vital Sign Reading Time Taken Comments Blood Pressure 112/70 12/11/2024 12:18 PM SAP SOLUTION MANAGER CONSULTANT Pulse 89 12/11/2024 12:18 PM SAP SOLUTION MANAGER CONSULTANT Temperature 36.3 C (97.4 F) 12/11/2024 12:18 PM SAP SOLUTION MANAGER CONSULTANT Respiratory Rate 16 01/11/2019 11:45 AM SAP SOLUTION MANAGER CONSULTANT Oxygen Saturation 98% 01/04/2024 9:02 AM SAP SOLUTION MANAGER CONSULTANT Inhaled Oxygen Concentration - - Weight 122.5 kg (270 lb) 12/11/2024 12:18 PM SAP SOLUTION MANAGER CONSULTANT Height 200.7 cm (6' 7 ) 12/11/2024 12:18 PM SAP SOLUTION MANAGER CONSULTANT Body Mass Index 30.42 12/11/2024 12:18 PM SAP SOLUTION MANAGER CONSULTANT Plan of Treatment Health Maintenance Due Date [...] history exists Medical Devices Implanted Type Area Lab Support Tech Device Identifier Shelf Expiration Date Model / Serial / Lot Bilateral Total Knee Arthroplasty Bilateral : Knee Procedures Procedure Name Priority Date/Time Associated Diagnosis Comments CT SOFT TISSUE NECK W CONTRAST Schedule Routine, Read Routine (OP Routine) 12/11/2024 3:56 PM SAP SOLUTION MANAGER CONSULTANT Pituitary adenoma (HCC) MRI BRAIN W WO CONTRAST (PITUITARY) Schedule Routine, Read Routine (OP Routine) 12/11/2024 7:46 AM SAP SOLUTION MANAGER CONSULTANT Pituitary adenoma (HCC) COLONOSCOPY 01/11/2019 7:11 AM SAP SOLUTION MANAGER CONSULTANT from Last 3 Months or Most Recently Relevant to Health Maintenance Results * CT Neck Soft Tissue W Contrast (12/11/2024 3:56 PM SAP SOLUTION MANAGER CONSULTANT) Anatomical Region Laterality Modality Head and Neck N/A Computed Tomogra phy 12/11/2024 5:00 PM SAP SOLUTION MANAGER CONSULTANT Impressions 12/11/2024 5:43 PM SAP SOLUTION MANAGER CONSULTANT Homogeneously enhancing lesion splaying the left external [...] Sergio Piedra M.D. 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 Narrative 12/11/2024 12:54 PM SAP SOLUTION MANAGER CONSULTANT EXAMINATION: Magnetic resonance imaging (MRI) of the [...] by: Gladys Gutierrez M.D. Herbert Sneed MD [facility] MRI PROCEDURES Final Result * COLONOSCOPY (01/11/2019 7:11 AM SAP SOLUTION MANAGER CONSULTANT) Anatomical Region Laterality Modality Other Narrative Procedure Note Cedric Frausto MD PhD - 01/11/2019 7:11 AM CST [facility] Patient Name: Duane Torres Procedure Date: 01/11/2019 7:11 AM Date of : 1945 Admit Type: Outpatient Age: 73 Gender: Male Attending MD: Cedric Frausto MD, PHD Room: [facility] 02 Note Status: Finalized [...] The scope was passed under direct vision.The [id number] Endoscope was introduced throughthe anus and advanced [...] On: 01/11/2019 7:11 AM Recognized by the [employer] for promoting quality in endoscopy Cedric Frausto MD PhD ENDOSCOPY PROCEDURES Final Result from Last 3 Months or Most Recently Relevant to Health Maintenance Insurance MEDICARE [employer] [facility] [employer] [facility] MEDICARE [facility] Care Teams Boring Machine Set Up Operator Jig Relationship Specialty Start Date End Date No, Physician PCP - General 07/26/23 Demetrius Espitia MD Radiation Oncologist Radiation Oncology 07/26/23 Henry Barton MD [address] [place] [address] Consulting Physician Urology 07/26/23
--- OUTSIDE RECORDS SUMMARY | 2025-01-27 16:18 | XMS_ITS | Encounter Summary ---
Author Organization [facility] Address [address] [place] [address] Care Team Providers Care Fibre Optic Cable Splicer Name Role Phone Unknown, Notinfile Primary Care Provider Unavail able No, Physician Primary Care Provider [phone] Demetrius Espitia MD Unavailable [phone] Henry Barton MD Unavailable [phone] Encounter Details Date Type Department Care Team (Late st Contact Info) Description 06/30/2023 Telephone [facility] Medical Office Building 2 Radiation Oncology [address] [place] [id number] Demetrius Espitia MD [address] [place] [phone] Social History Tobacco Use Types Packs/Day [...] on file Legal Sex Male 7:17 AM IC DESIGNER STANDARD CELLS Gender Identity Not on file Sexual Orientation Not on file documented as of this encounter Plan of Treatment Not on file documented as of this encounter Visit Diagnoses Not on filedocumented in this encounter Care Teams Fibre Optic Cable Splicer Relationship Specialty Start Date End Date Unknown, Notinfile PCP - General 06/20/23 07/25/23 No, Physician PCP - General 07/26/23 Demetrius Espitia MD Radiation Oncologist Radiation Oncology 07/26/23 Henry Barton MD [address] [facility] [address] [place] [address] Consulting Physician Urology 07/26/23 documented as of this encounter
--- OUTSIDE RECORDS SUMMARY | 2025-01-27 16:18 | XMS_ITS | Encounter Summary ---
Author Organization [facility] Address [address] [place] [address] Care Team Providers Care Gluing Crew Leader Name Role Phone Juan Ha MD Primary [...] on file Legal Sex Male 5:29 AM MEDICAL OFFICER Gender Identity Not on file Sexual Orientation Not on file documented as of this encounter Plan of Treatment Not on file documented as of this encounter Visit Diagnoses Not on filedocumented in this encounter Care Teams Gluing Crew Leader Relationship Specialty Start Date End Date Juan Ha MD PCP - General Internal Medicine 08/12/11 documented as of this encounter
--- OUTSIDE RECORDS SUMMARY | 2025-01-27 16:18 | XMS_ITS | Encounter Summary ---
Author Organization [facility] Address [address] [place] [address] Care Team Providers Care Radiographer Technologist Name Role Phone Juan Ha MD Primary Care Provider [phone] Encounter Details Date Type Department Care Team (Late st Contact Info) Description 11/26/2007 Outpatient Historical HIS ORTHOPEDIC TRAUMA Juan Burnett MD NO ADDRESS ON FILE Social History Tobacco Use Types Packs/Day Years Used Date Smoking Tobacco: Never Assessed Sex and Gender Information Value Date Recorded Sex Assigned at Not on file Legal Sex Male 5:29 AM TYPE COPYIST Gender Identity Not on file Sexual Orientation Not on file documented as of this encounter Plan of Treatment Not on file documented as of this encounter Visit Diagnoses Not on filedocumented in this encounter Care Teams Radiographer Technologist Relationship Specialty Start Date End Date Juan Ha MD PCP - General Internal Medicine 08/12/11 documented as of this encounter
--- OUTSIDE RECORDS SUMMARY | 2025-01-27 16:18 | XMS_ITS | Continuity of Care Document ---
Author Name [facility] Organization [facility] Care Team Providers Care Mr Teacher Name Role Phone [facility] Unavailable Unavailable Problems Combined list of problems from Department of Defense and [facility] Affairs facilities. It does not include entries that were removed or entered in error. Problem Status Onset Date Problem Type Date of Resolution Comments Source Prostate Cancer ([facility] [id number]) Active 05/13/20 23 Condition [facility] Basal cell carcinoma of forehead Active Condition [facility] Chronic pain Active Condition [facility] Decreased androgen level Active Condition [facility] Diabetes mellitus Active Condition [facility] Exposure to potentially hazardous substance Active Condition [facility] Fibromyalgia Active Condition [facility] Foot ulcer Active Condition [facility] History of tobacco use Active Condition [facility] Hyperlipidemia Active Condition [facility] Hypertension Active Condition [facility] Idiopathic peripheral autonomic neuropathy Active Condition Jun 09, 2015 Entered By: JEISON NUNN Comment: 2012 [facility] Immune thrombocytopenia Active Condition Jun 09 5 Entered By: JEISON NUNN Comment: 2009 [facility] Long-term current use of opiate analgesic drug Active Condition [facility] Obstructive sleep apnea Active Condition [facility] Osteoarthritis of knee Active Condition Jun 09, 2015 Entered By: JEISON NUNN Comment: RT KNEE TKR 2007, LT KNEE TKR 2010 [facility] Osteomyelitis Active Condition May Entered By: SUSANNA LANDEROS Comment: R 1st toe; IV vancomycin and IV ertapenem May-Jun 2021 [facility] Otalgia Active Condition [facility] Steatosis of liver Active Condition [facility] Benign prostatic hyperplasia Inactive Condition 04/23/2021 [facility] Excessive cerumen in ear canal Inactive Condition 04/23/2021 [facility] Health Examination of Defined Subpopulations Inactive Condition 04/23/2021 Jun 09, 2015 Entered By: JEISON NUNN Comment: COMPLETED AGENT ORANGE REGISTRY EXAM [facility] Obstructive sleep apnea syndrome Inactive Condition 04/23/2021 Jun 09, 2015 Entered By: JEISON NUNN Comment: 2004 [facility] Otitis externa Inactive Condition 04/23/2021 [facility] Diagnosis: ICD-10-CM E11.40 Type 2 diabetes mellitus with diabetic neuropathy, unsp Active Diagnosis [facility] Diagnosis: ICD-10-CM 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 [facility] Diagnosis: ICD-10-CM 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 Active Diagnosis [facility] Diagnosis: ICD-10-CM Z55.9 Problems related to education and literacy, unspecified Active Diagnosis [facility] Diagnosis: ICD-10-CM L60.3 Nail dystrophy Active Diagnosis [facility] Diagnosis: ICD-10-CM R21 Rash and other nonspecific skin eruption Active Diagnosis [facility] Diagnosis: ICD-10-CM H25.12 Age-related nuclear cataract, left eye Active Diagnosis [facility] Diagnosis: ICD-10-CM C61 Malignant neoplasm of prostate Active Diagnosis [facility] Diagnosis: ICD-10-CM G89.29 Other chronic pain Active Diagnosis [facility] Diagnosis: ICD-10-CM L57.0 Actinic keratosis Active Diagnosis [facility] Diagnosis: ICD-10-CM Z01.20 Encounter for dental exam and cleaning w/o abnormal findings Active Diagnosis [facility] Diagnosis: ICD-10-CM I10 Essential (primary) hypertension Active Diagnosis [facility] Diagnosis: ICD-10-CM L21.8 Other seborrheic dermatitis Active Diagnosis [facility] Diagnosis: ICD-10-CM K02.7 Dental root caries Active Diagnosis [facility] Diagnosis: ICD-10-CM M79.7 Fibromyalgia Active Diagnosis [facility] Diagnosis: ICD-10-CM H52.4 Presbyopia Active Diagnosis [facility] Diagnosis: ICD-10-CM M54.50 Low back pain, unspecified Active Diagnosis [facility] Diagnosis: ICD-10-CM L72.9 Follicular cyst of the skin and subcutaneous tissue, unsp Active Diagnosis [facility] Medications Combined list of outpatient medications from Department of Defense and Veterans Affairs facilities.Medications provided include 1) outpatient medications from the last 15 months, and 2) patient-reported medications. Medication Details Route Status Patient Instructions Prescription Expires Prescription Number Last Dispense Date Ordering Provider Order Date Order Qty Source AMOXICILLIN TRIHYDRATE 500MG CAP TAKE ONE CAPSULE BY MOUTH THREE TIMES A DAY TAKE UNTIL GONE UNLESS OTHERWIS E DIRECTED . ORAL DISCONT INUED 08/07/2024 [id number] BONG NUNES 2023 21 [facility] CAMPHOR 0.5%/MENTHO L 0.5% LOTION APPLY LIGHTLY TO AFFECTED AREA(S) THREE TIMES A DAY FOR ITCHING - (EXTERNA L USE ONLY) APPLY TO ARMS TOPICA L ACTIVE 09/17/2025 [id number] ELMA MATIAS ER 2023 225 [facility] CAMPHOR 0.5%/MENTHO L 0.5% LOTION APPLY LIGHTLY TO AFFECTED AREA(S) THREE TIMES A DAY FOR ITCHING - (EXTERNA L USE ONLY) APPLY TO ARMS THREE TIMES PER DAY TOPICA L DISCONT INUED (EDIT) 08/15/2025 [id number] 4 DWAINE BRONSON 2023 225 [facility] CAMPHOR/MEN THOL/METHYL SALICYLATE PATCH APPLY 1 PATCH TO SKIN SITE THREE TIMES A DAY NEEDED (EXTERNA L USE ONLY) TRANSD ERMAL ACTIVE 07/24/2025 [id number] 4 MIRIAM WOLFE 2023 120 [facility] CETIRIZINE HCL 10MG TAB TAKE ONE TABLET BY MOUTH TWICE A DAY FOR ALLERGY SYMPTOMS ORAL ACTIVE 09/17/2025 [id number] GISELA MATIASVI ER 2023 180 [facility] CHOLECALCIF NIKHIL 50MCG (2,000UNIT) TAB TAKE TWO TABLETS BY MOUTH ONCE A DAY FOR VITAMIN D DEFICIEN CY ORAL ACTIVE 02/20/2025 [id number] 5 DESTINEY NORWOOD ACE M 2023 200 [facility] CIPROFLOXAC IN HCL 0.3%/DEXAME THASONE 0.1% SUSP,OTIC INSTILL 4 DROPS IN TO AFFECTED EAR(S) TWICE A DAY AURICU LAR (OTIC) ACTIVE TNAA HUMPHRIES 2016 [facility] CLOBETASOL PROPIONATE 0.05% OINT,TOP APPLY LIGHTLY TO AFFECTED AREA(S) TWICE A DAY FOR ECZEMA (EXTERNA L USE ONLY) TOPICA L ACTIVE 09/17/2025 [id number] POLLY,ELMA ER 2023 60 [facility] CLOBETASOL PROPIONATE 0.05% SOLN,TOP APPLY LIGHTLY TO AFFECTED AREA(S) ONCE A DAY NEEDED SCALP ITCHING (EXTERNA L USE ONLY) TOPICA L ACTIVE 03/30/2025 [id number] 5 EVAN CARRIZALES 2023 50 [facility] CYANOCOBALA MIN 1000MCG TAB TAKE ONE TABLET BY MOUTH ONCE A DAY FOR B12 SUPPLEME NTATION ORAL 11/28/2024 [id number] 4 DESTINEY NORWOOD ACE M 2023 100 [facility] DICLOFENAC NA 1% GEL,TOP APPLY 4 GM TO AFFECTED AREA(S) FOUR TIMES A DAY NEEDED FOR PAIN/INF LAMMATIO N; NOT MORE THAN 16 GRAMS DAILY TO ANY LOWER EXTREMIT Y JOINT. NOT MORE THAN 8 GRAMS DAILY TO ANY UPPER EXTREMIT Y JOINT. MAX 32GM/DAY OVER ALL JOINTS. (MEASURE DOSE WITH RULER ATTACHED INSIDE BOX) OVER HANDS AND SHOULDER S NEEDED FOR PAIN TOPICA L ACTIVE 04/11/2025 [id number] 5 MIRIAM WOLFE 2023 200 [facility] DULOXETINE HCL 60MG CAP,EC TAKE ONE CAPSULE BY MOUTH ONCE A DAY DO NOT ABRUPTLY DISCONTI NUE MEDICATI ON. ORAL ACTIVE 09/27/2025 [id number] 4 DESTINEY NORWOOD MAEVE M 2023 90 [facility] DULOXETINE HCL 60MG CAP,EC TAKE ONE CAPSULE BY MOUTH ONCE A DAY DO NOT ABRUPTLY DISCONTI NUE MEDICATI ON. ORAL DISCONT INUED 08/18/2024 [id number] 4 CUCODESTINEY MAEVE M 2022 90 [facility] EMPAGLIFLOZ IN 25MG TAB TAKE ONE TABLET BY MOUTH ONCE A DAY FOR DIABETES ORAL DISCONT INUED BY PROVIDE R 02/14/2025 [id number] ANGEL MALDONADO 2023 90 [facility] EMPAGLIFLOZ IN 25MG TAB TAKE ONE-HALF TABLET BY MOUTH ONCE A DAY FOR DIABETES ORAL DISCONT INUED (EDIT) 11/28/2024 [id number] 4 CUCODESTINEY MAEVE M 2023 45 [facility] HYDROCODONE 7.5MG/ACETA MINOPHEN 325MG TAB TAKE 1 TABLET BY MOUTH THREE TIMES A DAY NEEDED CAUTION: DO NOT EXCEED 4000MG PER DAY ACETAMIN OPHEN (APAP) FROM ALL MEDS. ORAL ACTIVE 02/13/[id number] 5 KATIE SHETH 2024 70 [facility] HYDROCODONE 7.5MG/ACETA MINOPHEN 325MG TAB TAKE 1 TABLET BY MOUTH TWICE DAILY NEEDED FOR PAIN. CAUTION: DO NOT EXCEED 4000MG PER DAY ACETAMIN OPHEN (APAP) FROM ALL MEDS. ORAL DISCONT INUED 11/03/[id number] 4 KATIE SHETH 2023 56 [facility] HYDROCODONE 7.5MG/ACETA MINOPHEN 325MG TAB TAKE 1 TABLET BY MOUTH TWICE DAILY NEEDED CAUTION: DO NOT EXCEED 4000MG PER DAY ACETAMIN OPHEN (APAP) FROM ALL MEDS. ORAL DISCONT INUED 08/15/[id number] 4 KATIE SHETH 2023 14 [facility] HYDROCODONE 7.5MG/ACETA MINOPHEN 325MG TAB TAKE 1 TABLET BY MOUTH TWICE DAILY NEEDED FOR SEVERE PAIN CAUTION: DO NOT EXCEED 4000MG PER DAY ACETAMIN OPHEN (APAP) FROM ALL MEDS. ORAL DISCONT INUED 07/19/2024 [id number] FAIZAN REESE N 2023 60 [facility] HYDROCODONE 7.5MG/ACETA MINOPHEN 325MG TAB TAKE 1 TABLET BY MOUTH TWICE DAILY NEEDED FOR SEVERE PAIN CAUTION: DO NOT EXCEED 4000MG PER DAY ACETAMIN OPHEN (APAP) FROM ALL MEDS. ORAL DISCONT INUED 05/01/[id number] 4 SAMEERA BULLOCK ROL 2023 60 [facility] HYDROCODONE 7.5MG/ACETA MINOPHEN 325MG TAB TAKE 1 TABLET BY MOUTH THREE TIMES A DAY NEEDED CAUTION: DO NOT EXCEED 4000MG PER DAY ACETAMIN OPHEN (APAP) FROM ALL MEDS. ORAL DISCONT INUED 04/05/[id number] 4 SAMEERA BULLOCK ROL 2023 90 [facility] HYDROCODONE 7.5MG/ACETA MINOPHEN 325MG TAB TAKE 1 TABLET BY MOUTH THREE TIMES A DAY NEEDED FOR PAIN CAUTION: DO NOT EXCEED 4000MG PER DAY ACETAMIN OPHEN (APAP) FROM ALL MEDS. ORAL 12/22/[id number] 5 KATIE SHETH Leesa 2024 70 [facility] HYDROCODONE 7.5MG/ACETA MINOPHEN 325MG TAB TAKE 1 TABLET BY MOUTH THREE TIMES A DAY NEEDED CAUTION: DO NOT EXCEED 4000MG PER DAY ACETAMIN OPHEN (APAP) FROM ALL MEDS. ORAL 11/16/[id number] 4 KATIE SHETH Selam Landers 2023 70 [facility] HYDROCODONE 7.5MG/ACETA MINOPHEN 325MG TAB TAKE 1 TABLET BY MOUTH TWICE DAILY NEEDED CAUTION: DO NOT EXCEED 4000MG PER DAY ACETAMIN OPHEN (APAP) FROM ALL MEDS. ORAL 09/28/2024 [id number] 4 SAMEERA BULLOCK ROL 2023 60 [facility] HYDROCODONE 7.5MG/ACETA MINOPHEN 325MG TAB TAKE 1 TABLET BY MOUTH TWICE DAILY NEEDED FOR PAIN CAUTION: DO NOT EXCEED 4000MG PER DAY ACETAMIN OPHEN (APAP) FROM ALL MEDS. ORAL 08/23/[id number] 4 SAMEERA BULLOCK ROL 2023 60 [facility] HYDROCODONE 7.5MG/ACETA MINOPHEN 325MG TAB TAKE 1 TABLET BY MOUTH TWICE DAILY NEEDED FOR SEVERE PAIN CAUTION: DO NOT EXCEED 4000MG PER DAY ACETAMIN OPHEN (APAP) FROM ALL MEDS. ORAL 05/10/[id number] 4 SAMEERA BULLOCK ROL 2023 60 [facility] HYDROCODONE 7.5MG/ACETA MINOPHEN 325MG TAB TAKE 1 TABLET BY MOUTH THREE TIMES A DAY NEEDED FOR PAIN THAT LIMITS FUNCTION CAUTION: DO NOT EXCEED 4000MG PER DAY ACETAMIN OPHEN (APAP) FROM ALL MEDS. ORAL 03/03/[id number] 4 SAMEERA BULLOCK ROL 2023 90 [facility] HYDROCODONE 7.5MG/ACETA MINOPHEN 325MG TAB TAKE 1 TABLET BY MOUTH THREE TIMES A DAY NEEDED FOR PAIN THAT LIMITS FUNCTION CAUTION: DO NOT EXCEED 4000MG PER DAY ACETAMIN OPHEN (APAP) FROM ALL MEDS. ORAL 01/19/[id number] 4 SAMEERA BULLOCK ROL 2023 90 [facility] HYDROCODONE 7.5MG/ACETA MINOPHEN 325MG TAB TAKE 1 TABLET BY MOUTH THREE TIMES A DAY NEEDED FOR PAIN THAT LIMITS FUNCTION CAUTION: DO NOT EXCEED 4000MG PER DAY ACETAMIN OPHEN (APAP) FROM ALL MEDS. ORAL 12/17/[id number] 4 SAMEERA BULLOCK ROL 2023 90 [facility] IBUPROFEN 600MG TAB TAKE ONE TABLET BY MOUTH EVERY 6 HOURS NEEDED TAKE WITH FOOD. ORAL DISCONT INUED 08/07/2024 [id number] BONG NUNES 2023 28 [facility] KETOCONAZOL E 2% SHAMPOO USE SHAMPOO TO AFFECTED AREA(S) ONCE A DAY NEEDED FOR DANDRUFF *LET SIT FOR 3-5 MINUTES ON SCALP, THEN RINSE* (EXTERNA L USE ONLY) (SHAKE WELL) TOPICA L ACTIVE 03/30/2025 [id number] EVAN CARRIZALES 2023 120 [facility] LIDOCAINE 5% PATCH APPLY 1-3 PATCHES TO SKIN SITE ONCE A DAY NEEDED FOR PAIN APPLY PATCH AND PRESS FIRMLY FOR 10-15 SECONDS. KEEP ON FOR 12 HOURS THEN REMOVE PATCH FOR 12 HOURS. TRANSD ERMAL ACTIVE 03/07/2025 [id number] MIRIAM WOLFE 2023 90 [facility] LIDOCAINE 5% PATCH APPLY 1-3 PATCHES TO SKIN SITE ONCE A DAY NEEDED FOR PAIN APPLY PATCH AND PRESS FIRMLY FOR 10-15 SECONDS. KEEP ON FOR 12 HOURS THEN REMOVE PATCH FOR 12 HOURS. TRANSD ERMAL DISCONT INUED 08/30/2024 [id number] OBEY CORDERO 2022 90 [facility] METFORMIN HCL 1000MG TAB TAKE ONE TABLET BY MOUTH TWICE A DAY WITH MEALS FOR BLOOD SUGAR CONTROL. TAKE WITH FOOD. AVOID ALCOHOL. DISCONTI NUE BEFORE GETTING XRAY DYE. ORAL ACTIVE 07/17/2025 [id number] 5 DESTINEY NORWOOD ACE M 2023 180 [facility] METFORMIN HCL 1000MG TAB TAKE ONE TABLET BY MOUTH TWICE A DAY WITH MEALS FOR BLOOD SUGAR CONTROL. TAKE WITH FOOD. AVOID ALCOHOL. DISCONTI NUE BEFORE GETTING XRAY DYE. ORAL DISCONT INUED 04/05/2024 [id number] DESTINEY NORWOOD ACE M 2022 180 [facility] MUPIROCIN 2% OINT,TOP APPLY LIBERALL Y TO AFFECTED AREA(S) TWICE A DAY FOR BACTERIA L INFECTIO N EXTERNAL USE ONLY. TOPICA L ACTIVE 08/15/2025 [id number] DWAINE BRONSON 2023 22 [facility] NALOXONE HCL 4MG/SPRAY SOLN,SPRAY, NASAL USE 1 SPRAY (4MG) INTO ONE NOSTRIL ONLY ONE-TIME FOR OPIOID OVERDOSE DO NOT PRIME NASAL SPRAY. SPRAY ONE DOSE IN ONE NOSTRIL, GIVE ADDITION AL DOSE IF PATIENT DOES NOT START BREATHIN G WITHIN 2-3 MINUTES OR STOPS BREATHIN G AGAIN. CALL 911. IF USED, NOTIFY PROVIDER . NASAL 06/04/2024 [id number] MIRIAM WOLFE 2023 2 [facility] OXYCODONE HCL 5MG TAB TAKE ONE TABLET BY MOUTH EVERY 6 HOURS NEEDED MAY CAUSE CONSTIPA TION ORAL DISCONT INUED 08/07/2024 [id number] BONG NUNES 2023 15 [facility] PENICILLIN V K 500MG TAB TAKE ONE TABLET BY MOUTH THREE TIMES A DAY ORAL DISCONT INUED 07/03/2024 [id number] DIEGO RADER 2023 21 [facility] PETROLATUM OINT,TOP APPLY LIGHTLY TO AFFECTED AREA(S) TWICE A DAY FOR DRY SKIN TOPICA L ACTIVE 03/30/2025 [id number] 4 CARRIZALESEVAN G 2023 390 [facility] POLYETHYLEN E GLYCOL 3350 PWDR,ORAL MIX AND DRINK 1 CAPFUL BY MOUTH ONCE A DAY TO PREVENT CONSTIPA TION. (MEASURE WITH CAP AND MIX IN 8 OZ OF WATER) ORAL SUSPEND ED 09/25/2025 [id number] 5 CUCO,HOR MAEVE M 2023 510 [facility] POLYETHYLEN E GLYCOL 3350 PWDR,ORAL MIX AND DRINK 1 CAPFUL BY MOUTH ONCE A DAY TO PREVENT CONSTIPA TION. (MEASURE WITH CAP AND MIX IN 8 OZ OF WATER) ORAL DISCONT INUED 01/25/2025 [id number] 4 CUCO,HOR MAEVE M 2023 510 [facility] POLYETHYLEN E GLYCOL 3350 PWDR,ORAL MIX AND DRINK 1 CAPFUL BY MOUTH ONCE A DAY TO PREVENT CONSTIPA TION. (MEASURE WITH CAP AND MIX IN 8 OZ OF WATER) ORAL DISCONT INUED 06/08/2024 [id number] 4 CUCOHOR MAEVE M 2022 510 [facility] PRAVASTATIN NA 40MG TAB TAKE ONE-HALF TABLET BY MOUTH EVERY EVENING FOR HIGH CHOLESTE ROL ORAL ACTIVE 04/04/2025 [id number] 5 CUCO,HOR MAEVE M 2023 45 [facility] PRAVASTATIN NA 40MG TAB TAKE ONE-HALF TABLET BY MOUTH EVERY EVENING FOR HIGH CHOLESTE ROL ORAL DISCONT INUED 02/23/2024 [id number] TANA HUMPHRIES 2022 45 [facility] PREGABALIN 100MG CAP,ORAL TAKE ONE CAPSULE BY MOUTH TWICE A DAY FOR NERVE PAIN *MAY CAUSE DROWSINE SS* ORAL ACTIVE 04/19/2025 [id number] KATIE SHETH Selam Landers 2023 60 [facility] PREGABALIN 75MG CAP,ORAL TAKE ONE CAPSULE BY MOUTH TWICE A DAY *MAY CAUSE DROWSINE SS* ORAL DISCONT INUED 09/06/2024 [id number] ARA,CA ROL 2023 60 [facility] PREGABALIN 75MG CAP,ORAL TAKE ONE CAPSULE BY MOUTH TWICE A DAY FOR NERVE PAIN *MAY CAUSE DROWSINE SS* ORAL 03/03/2024 [id number] SHAHLA RIOS 2022 60 [facility] SEMAGLUTIDE 0.25MG/0.37 5ML INJ,SOLN,PE N,3ML INJECT 0.5MG UNDER THE SKIN EVERY WEEK FOR DIABETES SUBCUT ANEOUS DISCONT INUED (EDIT) 12/01/2024 [id number] 4 MUEGGE,BR KAREN 2023 1 [facility] SEMAGLUTIDE 0.25MG/0.37 5ML INJ,SOLN,PE N,3ML INJECT 0.25MG UNDER THE SKIN EVERY WEEK FOR 4 WEEKS, THEN INJECT 0.5MG EVERY WEEK FOR DIABETES SUBCUT ANEOUS DISCONT INUED 12/01/2024 [id number] 4 MUEGGE,BR KAREN 2023 1 [facility] SEMAGLUTIDE 1MG/0.75ML INJ,SOLN,PE N,3ML INJECT 1MG UNDER THE SKIN EVERY WEEK SUBCUT ANEOUS ACTIVE 12/17/2025 [id number] 5 MUEGGE,BR KAREN 2024 3 [facility] SEMAGL[facility] 1MG/0.75ML INJ,SOLN,PE N,3ML INJECT 1MG UNDER THE SKIN EVERY WEEK SUBCUT ANEOUS DISCONT INUED 03/21/2025 [id number] 5 MUEGGE,BR KAREN 2023 1 [facility] SEMAGLUTIDE 1MG/0.75ML INJ,SOLN,PE N,3ML INJECT 1MG UNDER THE SKIN EVERY WEEK SUBCUT ANEOUS DISCONT INUED 03/21/2025 [id number] 4 ANGEL MALDONADO 2023 4 [facility] SODIUM FLUORIDE 1.1% GEL,DENT APPLY SPARINGL Y BY MOUTH TWICE A DAY FOR DENTAL CARE - AFTER BRUSHING TEETH; APPLY SPARINGL Y; DO NOT EAT, DRINK OR RINSE FOR 30 MINUTES AFTER APPLICAT ION ORAL ACTIVE 08/09/2025 [id number] 4 DIEGO RADER FTALI 2023 60 [facility] TAMSULOSIN HCL 0.4MG CAP TAKE ONE CAPSULE BY MOUTH EVERY EVENING APPROXIM ATELY 30 MINUTES AFTER THE SAME MEAL EACH DAY (FOR PROSTATE ) ORAL ACTIVE 05/16/2025 [id number] 5 CUCO,HOR MAEVE M 2023 90 [facility] TAMSULOSIN HCL 0.4MG CAP TAKE ONE CAPSULE BY MOUTH EVERY EVENING APPROXIM ATELY 30 MINUTES AFTER THE SAME MEAL EACH DAY (FOR PROSTATE ) ORAL DISCONT INUED 04/05/2024 [id number] 4 DESTINEY NORWOOD ACE M 2022 30 [facility] TESTOSTERON E 1.62% 20.25MG/PUM P GEL,TOP APPLY 3 PUMPS (60.75MG ) TO AFFECTED AREA(S) ONCE A DAY FOR LOW TESTOSTE BRENT APPLY TO CLEAN DRY SKIN OF UPPER ARMS OR UPPER SHOULDER ONLY TOPICA L ACTIVE 04/25/2025 [id number] 5 ANGEL MALDONADO KAREN 2023 2 [facility] TIZANIDINE HCL 4MG TAB TAKE ONE-HALF TABLET BY MOUTH TWICE DAILY NEEDED FOR SPASTICI TY ORAL DISCONT INUED 08/10/2024 [id number] 4 MIRIAM WOLFE 2022 30 [facility] TIZANIDINE HCL 4MG TAB TAKE ONE-HALF TABLET BY MOUTH TWICE DAILY NEEDED FOR SPASTICI TY ORAL 12/29/2024 [id number] 5 MIRIAM WOLFE 2023 30 [facility] Allergies, Adverse Reactions, Alerts Combined list of allergies from [facility] and [facility] facilities. It does not include entries that were removed or entered in error. Substance Category Reaction Severity Reaction type Status Date Reported Comments Source ATORVASTATIN Propensity to adverse reactions to drug (finding) Pain in lower limb active 1 [facility] PRAVASTATIN Propensity to adverse reactions to drug (finding) Muscle pain active 3 [facility] ROSUVASTATIN Propensity to adverse reactions to drug (finding) Muscle pain active 1 [facility] SIMVASTATIN Propensity to adverse reactions to drug (finding) Pain in lower limb MODERATE active 9 [facility] Immunizations Combined list of available immunizations from the Department of [facility] and [facility] Affairs facilities. Immunization Series Date Given Administered By Site Reaction Lot Number CVX Code Drug Film Tests Checker Status Comments Source INFLUENZA, HIGH-DOSE, TRIVALENT, PF 2024 JANAK ROQUE RIGHT DELTO ID [id number] 135 complet ed [facility] INFLUENZA, HIGH-DOSE, QUADRIVALENT 2022 GABE WEST LEFT DELTO ID [id number] 197 complet ed [facility] INFLUENZA VACCINE, QUADRIVALENT, ADJUVANTED 2021 205 complet ed [facility] INFLUENZA, UNSPECIFIED FORMULATION 2021 88 complet ed [facility] (PFIZER), MRNA, LNP-S, PF, 30 MCG/0.3 ML DOSE 3 2020 208 complet ed [facility] TDAP 2020 115 complet ed [facility] COVID-19 (PFIZER), MRNA, LNP-S, PF, 30 MCG/0.3 ML DOSE 2 2020 208 complet ed PFR; [id number]; 1 [facility] COVID-19 (PFIZER), MRNA, LNP-S, PF, 30 MCG/0.3 ML DOSE 1 2020 208 complet ed PFR; [id number]; 1 [facility] INFLUENZA, HIGH-DOSE, QUADRIVALENT 2019 197 complet ed Partner:Kandi FRASER.Admin istered by:[facility] [id number].([phone]) .ND:[id number].A ddress:[address] [facility] .[id number] Dosage: ML 0.7 [facility] ZOSTER RECOMBINANT 2 2018 187 complet ed [facility] INFLUENZA, INJECTABLE, QUADRIVALENT 2018 158 complet ed Partner: [facility]. Administe red by: [facility] Clinician (NPI=Not Provided) . Partner 59 Lot#: [id number] 2 Mfr: SEQIRUS [facility] PNEUMOCOCCAL POLYSACCHARID E [id number] 2018 33 complet ed [facility] ZOSTER RECOMBINANT 1 2018 187 complet ed [facility] INFLUENZA, UNSPECIFIED FORMULATION 4 2017 88 complet ed [facility] ZOSTER LIVE 2017 121 complet ed [facility] INFLUENZA, HIGH DOSE SEASONAL 3 2016 135 complet ed [facility] INFLUENZA, UNSPECIFIED FORMULATION 2016 88 complet ed [facility] PNEUMOCOCCAL CONJUGATE PCV 13 1 2014 133 complet ed [facility] INFLUENZA, HIGH DOSE SEASONAL 2 2013 135 complet ed [facility] TDAP 1 2013 115 complet ed [facility] N INFLUENZA, SEASONAL, INJECTABLE 1 2011 141 complet ed [facility] Results Combined list of recent chemistry, hematology and other laboratory results from [employer] and [employer], ranging from 15 months to all on record, depending upon the facility. Order Name Results Value Reference Range Date Interpretation Specimen Comments Source MICRAL/CR EAT PROFILE (STL) ALBUMIN [MASS/VOLUM E] IN URINE 20.2 mg/L 12/11 Specimen Type: URINE No comment entered. Ordering Provider: ERI NORWOOD Report Released Date/Time: Nov 04, 2024 02:10 PM Reporting Lab: [address] [id number] Performing Lab: [id number] [place] [address] MICRAL/CR EAT PROFILE (STL) ALBUMIN/CRE ATININE [MASS RATIO] IN URINE 11 mg/g 0 - 29 12/11 Specimen Type: URINE No comment entered. Ordering Provider: ERI NORWOOD Report Released Date/Time: Nov 04, 2024 02:10 PM Reporting Lab: [address] [id number] Performing Lab: [id number] [place] [address] MICRAL/CR EAT PROFILE (STL) CREATININE [MASS/VOLUM E] IN URINE 183.4 mg/dL 63 - 166 12/11 H Specimen Type: URINE No comment entered. Ordering Provider: ERI NORWOOD Report Released Date/Time: Nov 04, 2024 02:10 PM Reporting Lab: [address] [id number] Performing Lab: [address] CBC LEUKOCYTES [#/VOLUME] IN BLOOD BY AUTOMATED COUNT 9.4 10*3/u L 3.6 - 11.2 12/11 Specimen Type: BLOOD No comment entered. Ordering Provider: ERI NORWOOD Report Released Date/Time: Nov 25, 2024 11:58 AM Reporting Lab: 87 [address] [address] Performing Lab: [address] [address] [facility] CBC ERYTHROCYTE S [#/VOLUME] IN BLOOD BY AUTOMATED COUNT 4.55 10*6/u L 4.10 - 5.70 12/11 Specimen Type: BLOOD No comment entered. Ordering Provider: ERI NORWOOD Report Released Date/Time: Nov 25, 2024 11:58 AM Reporting Lab: [address] [address] Performing Lab: [address] [phone] CBC HEMOGLOBIN [MASS/VOLUM E] IN BLOOD 13.7 g/dL 13.1 - 16.8 12/11 Specimen Type: BLOOD No comment entered. Ordering Provider: ERI NORWOOD Report Released Date/Time: Nov 25, 2024 11:58 AM Reporting Lab: [address] [address] Performing Lab: [place] [phone] CBC HEMATOCRIT [VOLUME FRACTION] OF BLOOD 41.1 38.2 - 48.4 12/11 Specimen Type: BLOOD No comment entered. Ordering Provider: ERI NORWOOD Report Released Date/Time: Nov 25, 2024 11:58 AM Reporting Lab: [address] [address] Performing Lab: [address] [phone] CBC MCV [ENTITIC VOLUME] BY AUTOMATED COUNT 90.3 fL 80.0 - 100.0 12/11 Specimen Type: BLOOD No comment entered. Ordering Provider: ERI NORWOOD Report Released Date/Time: Nov 25, 2024 11:58 AM Reporting Lab: [place] [id number] [facility] [address] Performing Lab: [address] [address] [facility] CBC MCH [ENTITIC MASS] BY AUTOMATED COUNT 30.1 pg 27.0 - 34.0 12/11 Specimen Type: BLOOD No comment entered. Ordering Provider: ERI NORWOOD Report Released Date/Time: Nov 25, 2024 11:58 AM Reporting Lab: [address] [address] Performing Lab: [address] [address] [facility] CBC MCHC [MASS/VOLUM E] BY AUTOMATED COUNT 33.3 g/dL 33.0 - 36.0 12/11 Specimen Type: BLOOD No comment entered. Ordering Provider: ERI NORWOOD Report Released Date/Time: Nov 25, 2024 11:58 AM Reporting Lab: [address] [address] Performing Lab: [address] [address] [facility] CBC PLATELETS [#/VOLUME] IN BLOOD BY AUTOMATED COUNT 120 10*3/u L 150 - 400 12/11 L Specimen Type: BLOOD No comment entered. Ordering Provider: ERI NORWOOD Report Released Date/Time: Nov 25, 2024 11:58 AM Reporting Lab: [address] [address] Performing Lab: [address] [address] [facility] CBC PLATELET MEAN VOLUME [ENTITIC VOLUME] IN BLOOD BY AUTOMATED COUNT 11.5 fL 7.5 - 11.2 12/11 H Specimen Type: BLOOD No comment entered. Ordering Provider: ERI NORWOOD Report Released Date/Time: Nov 25, 2024 11:58 AM Reporting Lab: [facility] [address] [facility] [address] Performing Lab: [facility] [address] [facility] [address] [facility] CBC ERYTHROCYTE DISTRIBUTIO N WIDTH [RATIO] BY AUTOMATED COUNT 13.9 11.8 - 15.1 12/11 Specimen Type: BLOOD No comment entered. Ordering Provider: ERI NORWOOD Report Released Date/Time: Nov 25, 2024 11:58 AM Reporting Lab: [facility] [address] [facility] [address] Performing Lab: [address] [phone] [facility] CBC LYMPHOCYTES /100 LEUKOCYTES IN BLOOD BY AUTOMATED COUNT 17 12/11 Specimen Type: BLOOD No comment entered. Ordering Provider: ERI NORWOOD Report Released Date/Time: Nov 25, 2024 11:58 AM Reporting Lab: [facility] [address] [facility] [address] Performing Lab: [facility] [address] [place] [phone] [facility] CBC MONOCYTES/1 00 LEUKOCYTES IN BLOOD BY AUTOMATED COUNT 5 12/11 Specimen Type: BLOOD No comment entered. Ordering Provider: ERI NORWOOD Report Released Date/Time: Nov 25, 2024 11:58 AM Reporting Lab: [facility] [address] [facility] [address] Performing Lab: [facility] [address] [facility] [address] [facility] CBC NEUTROPHILS /100 LEUKOCYTES IN BLOOD BY AUTOMATED COUNT 68 12/11 Specimen Type: BLOOD No comment entered. Ordering Provider: ERI NORWOOD Report Released Date/Time: Nov 25, 2024 11:58 AM Reporting Lab: [facility] [address] [place] [phone] Performing Lab: [address] [place] [address] [facility] CBC EOSINOPHILS /100 LEUKOCYTES IN BLOOD BY AUTOMATED COUNT 9 12/11 Specimen Type: BLOOD No comment entered. Ordering Provider: ERI NORWOOD Report Released Date/Time: Nov 25, 2024 11:58 AM Reporting Lab: [address] [address] Performing Lab: [address] [address] [facility] CBC BASOPHILS/1 00 LEUKOCYTES IN BLOOD BY AUTOMATED COUNT 1 12/11 Specimen Type: BLOOD No comment entered. Ordering Provider: ERI NORWOOD Report Released Date/Time: Nov 25, 2024 11:58 AM Reporting Lab: [address] [address] Performing Lab: [address] [address] [facility] CBC LYMPHOCYTES [#/VOLUME] IN BLOOD BY AUTOMATED COUNT 1.58 10*3/u L 0.77 - 4.50 12/11 Specimen Type: BLOOD No comment entered. Ordering Provider: ERI NORWOOD Report Released Date/Time: Nov 25, 2024 11:58 AM Reporting Lab: [address] [address] Performing Lab: [address] [address] [facility] CBC MONOCYTES [#/VOLUME] IN BLOOD BY AUTOMATED COUNT 0.48 10*3/u L 0.19 - 0.80 12/11 Specimen Type: BLOOD No comment entered. Ordering Provider: ERI NORWOOD Report Released Date/Time: Nov 25, 2024 11:58 AM Reporting Lab: [address] [address] Performing Lab: [address] [address] [facility] CBC NEUTROPHILS [#/VOLUME] IN BLOOD BY AUTOMATED COUNT 6.38 10*3/u L 2.10 - 8.00 12/11 Specimen Type: BLOOD No comment entered. Ordering Provider: ERI NORWOOD Report Released Date/Time: Nov 25, 2024 11:58 AM Reporting Lab: [address] [address] Performing Lab: [place] [phone] [facility] CBC EOSINOPHILS [#/VOLUME] IN BLOOD BY AUTOMATED COUNT 0.88 10*3/u L 0.00 - 0.60 12/11 H Specimen Type: BLOOD No comment entered. Ordering Provider: REI NORWOOD Report Released Date/Time: Nov 25, 2024 11:58 AM Reporting Lab: [place] [phone] Performing Lab: [address] [address] [facility] CBC BASOPHILS [#/VOLUME] IN BLOOD BY AUTOMATED COUNT 0.05 10*3/u L 0.00 - 0.20 12/11 Specimen Type: BLOOD No comment entered. Ordering Provider: ERI NORWOOD Report Released Date/Time: Nov 25, 2024 11:58 AM Reporting Lab: [place] [phone] Performing Lab: [address] [address] [facility] CBC PLATELETS RETICULATED /100 PLATELETS IN BLOOD BY AUTOMATED COUNT 5.8 1.0 - 7.0 12/11 Specimen Type: BLOOD No comment entered. Ordering Provider: ERI NORWOOD Report Released Date/Time: Nov 25, 2024 11:58 AM Reporting Lab: [place] [phone] Performing Lab: [facility] [address] [address] [facility] HGA1C HEMOGLOBIN A1C/HEMOGLO BIN.TOTAL IN BLOOD 5.9 4.0 - 6.0 12/11 Specimen Type: BLOOD No comment entered. Ordering Provider: ERI NORWOOD Report Released Date/Time: Nov 25, 2024 12:09 PM Reporting Lab: [address] [address] Performing Lab: [address] PROST. SPECIFIC AG.(PB-ST L) PROSTATE SPECIFIC AG [MASS/VOLUM E] IN SERUM OR PLASMA 0.145 ng/mL 0 - 4 12/11 Specimen Type: SERUM Comment: The listed sex of this patient may not be a typical indication for this test. Therefore, reference ranges or interpretiv e criteria listed may not be valid. Clinical correlation suggested. Ordering Provider: ERI NORWOOD Report Released Date/Time: Nov 25, 2024 11:58 AM Reporting Lab: [address] [address] Performing Lab: [address] [phone] [place] [address] URINE DRUG SCREEN (STL) ETHANOL [MASS/VOLUM E] IN URINE Negati vemg/d L 0 - 20 09/27 Specimen Type: URINE Comment: The cut-off value for Fentanyl was laboratory developed and its performance characteris tics confirmed by the [facility] laboratory thru method comparison with reference laboratory and medication chart review. The laboratory is regulated under CLIA as qualified to perform high-comple xity testing. Fentanyl is used for clinical purposes in conjunction with other laboratory tests. Ordering Provider: PRABHJOT BULLOCK Report Released Date/Time: Sep 26, 2024 09:24 AM Reporting Lab: [address] [address] Performing Lab: [address] [address] [facility] URINE DRUG SCREEN (STL) AMPHETAMINE [PRESENCE] IN URINE BY SCREEN METHOD Negati veng/m L 09/27 Specimen Type: URINE Comment: The cut-off value for Fentanyl was laboratory developed and its performance characteris tics confirmed by the [facility] laboratory thru method comparison with reference laboratory and medication chart review. The laboratory is regulated under CLIA as qualified to perform high-comple xity testing. Fentanyl is used for clinical purposes in conjunction with other laboratory tests. Ordering Provider: PRABHJOT BULLOCK Report Released Date/Time: Sep 26, 2024 09:24 AM Reporting Lab: [place] [phone] Performing Lab: [place] [phone] [facility] URINE DRUG SCREEN (STL) BENZOYLECGO NINE [PRESENCE] IN URINE Negati veng/m L 09/27 Specimen Type: URINE Comment: The cut-off value for Fentanyl was laboratory developed and its performance characteris tics confirmed by the [facility] laboratory thru method comparison with reference laboratory and medication chart review. The laboratory is regulated under CLIA as qualified to perform high-comple xity testing. Fentanyl is used for clinical purposes in conjunction with other laboratory tests. Ordering Provider: PRABHJOT BULLOCK Report Released Date/Time: Sep 26, 2024 09:24 AM Reporting Lab: [address] [address] Performing Lab: [place] [phone] [facility] URINE DRUG SCREEN (STL) BENZODIAZEP DUGLAS [PRESENCE] IN URINE BY SCREEN METHOD Negati veng/m L 09/27 Specimen Type: URINE Comment: The cut-off value for Fentanyl was laboratory developed and its performance characteris tics confirmed by the [facility] laboratory thru method comparison with reference laboratory and medication chart review. The laboratory is regulated under CLIA as qualified to perform high-comple xity testing. Fentanyl is used for clinical purposes in conjunction with other laboratory tests. Ordering Provider: PRABHJOT BULLOCK Report Released Date/Time: Sep 26, 2024 09:24 AM Reporting Lab: [address] [address] Performing Lab: [facility] [address] [place] [phone] [facility] URINE DRUG SCREEN (STL) CANNABINOID S [PRESENCE] IN URINE BY SCREEN METHOD Negati veng/m L 09/27 Specimen Type: URINE Comment: The cut-off value for Fentanyl was laboratory developed and its performance characteris tics confirmed by the [facility] laboratory thru method comparison with reference laboratory and medication chart review. The laboratory is regulated under CLIA as qualified to perform high-comple xity testing. Fentanyl is used for clinical purposes in conjunction with other laboratory tests. Ordering Provider: PRABHJOT BULLOCK Report Released Date/Time: Sep 26, 2024 09:24 AM Reporting Lab: [address] [phone] Performing Lab: [address] [address] [facility] URINE DRUG SCREEN (STL) METHADONE [PRESENCE] IN URINE Negati veng/m L 09/27 Specimen Type: URINE Comment: The cut-off value for Fentanyl was laboratory developed and its performance characteris tics confirmed by the [facility] laboratory thru method comparison with reference laboratory and medication chart review. The laboratory is regulated under CLIA as qualified to perform high-comple xity testing. Fentanyl is used for clinical purposes in conjunction with other laboratory tests. Ordering Provider: PRABHJOT BULLOCK Report Released Date/Time: Sep 26, 2024 09:24 AM Reporting Lab: [address] [address] Performing Lab: [address] [address] [facility] URINE DRUG SCREEN (STL) OPIATES [PRESENCE] IN URINE BY SCREEN METHOD POSITI VEng/m L 09/27 Specimen Type: URINE Comment: The cut-off value for Fentanyl was laboratory developed and its performance characteris tics confirmed by the [facility] laboratory thru method comparison with reference laboratory and medication chart review. The laboratory is regulated under CLIA as qualified to perform high-comple xity testing. Fentanyl is used for clinical purposes in conjunction with other laboratory tests. Ordering Provider: PRABHJOT BULLOCK Report Released Date/Time: Sep 26, 2024 09:24 AM Reporting Lab: [facility] [address] [place] [phone] Performing Lab: [facility] [address] [place] [phone] [facility] URINE DRUG SCREEN (STL) CREATININE [MASS/VOLUM E] IN URINE 115.1 mg/dL 63 - 166 09/27 Specimen Type: URINE Comment: The cut-off value for Fentanyl was laboratory developed and its performance characteris tics confirmed by the [facility] laboratory thru method comparison with reference laboratory and medication chart review. The laboratory is regulated under CLIA as qualified to perform high-comple xity testing. Fentanyl is used for clinical purposes in conjunction with other laboratory tests. Ordering Provider: PRABHJOT BULLOCK Report Released Date/Time: Sep 26, 2024 09:24 AM Reporting Lab: [address] [phone] Performing Lab: [address] [address] [facility] URINE DRUG SCREEN (STL) OXYCODONE CUTOFF [MASS/VOLUM E] IN URINE FOR SCREEN METHOD Negati veng/m L 09/27 Specimen Type: URINE Comment: The cut-off value for Fentanyl was laboratory developed and its performance characteris tics confirmed by the [facility] laboratory thru method comparison with reference laboratory and medication chart review. The laboratory is regulated under CLIA as qualified to perform high-comple xity testing. Fentanyl is used for clinical purposes in conjunction with other laboratory tests. Ordering Provider: PRABHJOT BULLOCK Report Released Date/Time: Sep 26, 2024 09:24 AM Reporting Lab: [address] [address] Performing Lab: [place] [address] [facility] [address] [facility] URINE DRUG SCREEN (STL) BUPRENORPHI NE [PRESENCE] IN URINE Negati veng/m L 09/27 Specimen Type: URINE Comment: The cut-off value for Fentanyl was laboratory developed and its performance characteris tics confirmed by the [facility] laboratory thru method comparison with reference laboratory and medication chart review. The laboratory is regulated under CLIA as qualified to perform high-comple xity testing. Fentanyl is used for clinical purposes in conjunction with other laboratory tests. Ordering Provider: PRABHJOT BULLOCK Report Released Date/Time: Sep 26, 2024 09:24 AM Reporting Lab: [address] [address] Performing Lab: [address] [address] [facility] URINE DRUG SCREEN (STL) FENTANYL [PRESENCE] IN URINE Negati veng/m L 09/27 Specimen Type: URINE Comment: The cut-off value for Fentanyl was laboratory developed and its performance characteris tics confirmed by the [facility] laboratory thru method comparison with reference laboratory and medication chart review. The laboratory is regulated under CLIA as qualified to perform high-comple xity testing. Fentanyl is used for clinical purposes in conjunction with other laboratory tests. Ordering Provider: PRABHJOT BULLOCK Report Released Date/Time: Sep 26, 2024 09:24 AM Reporting Lab: [address] [address] Performing Lab: [address] [address] [facility] PROST. SPECIFIC AG.(PB-ST L) PROSTATE SPECIFIC AG [MASS/VOLUM E] IN SERUM OR PLASMA 0.118 ng/mL 0 - 4 09/27 Specimen Type: SERUM Comment: The listed sex of this patient may not be a typical indication for this test. Therefore, reference ranges or interpretiv e criteria listed may not be valid. Clinical correlation suggested. Ordering Provider: Kandi MCMULLEN S Report Released Date/Time: Sep 27, 2024 02:58 PM Reporting Lab: [address] [address] Performing Lab: [address] [address] [facility] URINE DRUG SCREEN (STL) ETHANOL [MASS/VOLUM E] IN URINE Negati vemg/d L 0 - 20 06/21 Specimen Type: URINE Comment: The cut-off value for this test was laboratory developed and its performance characteris tics confirmed by the [facility] laboratory thru method comparison with reference laboratory and medication chart review. The laboratory is regulated under CLIA as qualified to perform high-comple xity testing. This test is used for clinical purposes in conjunction with other laboratory tests. Ordering Provider: RAJANI WOLFE Report Released Date/Time: May 28, 2024 02:02 PM Reporting Lab: [address] [address] Performing Lab: [address] [phone] [place] [address] URINE DRUG SCREEN (STL) AMPHETAMINE [PRESENCE] IN URINE BY SCREEN METHOD Negati veng/m L 06/21 Specimen Type: URINE Comment: The cut-off value for this test was laboratory developed and its performance characteris tics confirmed by the [facility] laboratory thru method comparison with reference laboratory and medication chart review. The laboratory is regulated under CLIA as qualified to perform high-comple xity testing. This test is used for clinical purposes in conjunction with other laboratory tests. Ordering Provider: RAJANI WOLFE Report Released Date/Time: May 28, 2024 02:02 PM Reporting Lab: [address] [phone] Performing Lab: [address] [phone] [facility] URINE DRUG SCREEN (STL) BENZOYLECGO NINE [PRESENCE] IN URINE Negati veng/m L 06/21 Specimen Type: URINE Comment: The cut-off value for this test was laboratory developed and its performance characteris tics confirmed by the [facility] laboratory thru method comparison with reference laboratory and medication chart review. The laboratory is regulated under CLIA as qualified to perform high-comple xity testing. This test is used for clinical purposes in conjunction with other laboratory tests. Ordering Provider: RAJANI WOLFE Report Released Date/Time: May 28, 2024 02:02 PM Reporting Lab: [facility] [address] [facility] [address] Performing Lab: [facility] [address] [facility] [address] [facility] URINE DRUG SCREEN (STL) BENZODIAZEP DUGLAS [PRESENCE] IN URINE BY SCREEN METHOD Negati veng/m L 06/21 Specimen Type: URINE Comment: The cut-off value for this test was laboratory developed and its performance characteris tics confirmed by the [facility] laboratory thru method comparison with reference laboratory and medication chart review. The laboratory is regulated under CLIA as qualified to perform high-comple xity testing. This test is used for clinical purposes in conjunction with other laboratory tests. Ordering Provider: RAJANI WOLFE Report Released Date/Time: May 28, 2024 02:02 PM Reporting Lab: [facility] [address] [facility] [address] Performing Lab: [address] [phone] [facility] URINE DRUG SCREEN (STL) CANNABINOID S [PRESENCE] IN URINE BY SCREEN METHOD Negati veng/m L 06/21 Specimen Type: URINE Comment: The cut-off value for this test was laboratory developed and its performance characteris tics confirmed by the [facility] laboratory thru method comparison with reference laboratory and medication chart review. The laboratory is regulated under CLIA as qualified to perform high-comple xity testing. This test is used for clinical purposes in conjunction with other laboratory tests. Ordering Provider: RAJANI WOLFE Report Released Date/Time: May 28, 2024 02:02 PM Reporting Lab: [facility] [address] [facility] [address] Performing Lab: [address] [address] [facility] URINE DRUG SCREEN (STL) METHADONE [PRESENCE] IN URINE Negati veng/m L 06/21 Specimen Type: URINE Comment: The cut-off value for this test was laboratory developed and its performance characteris tics confirmed by the [facility] laboratory thru method comparison with reference laboratory and medication chart review. The laboratory is regulated under CLIA as qualified to perform high-comple xity testing. This test is used for clinical purposes in conjunction with other laboratory tests. Ordering Provider: RAJANI WOLFE Report Released Date/Time: May 28, 2024 02:02 PM Reporting Lab: [address] [phone] Performing Lab: [address] [address] [facility] URINE DRUG SCREEN (STL) OPIATES [PRESENCE] IN URINE BY SCREEN METHOD POSITI VEng/m L 06/21 Specimen Type: URINE Comment: The cut-off value for this test was laboratory developed and its performance characteris tics confirmed by the [facility] laboratory thru method comparison with reference laboratory and medication chart review. The laboratory is regulated under CLIA as qualified to perform high-comple xity testing. This test is used for clinical purposes in conjunction with other laboratory tests. Ordering Provider: RAJANI WOLFE Report Released Date/Time: May 28, 2024 02:02 PM Reporting Lab: [address] [address] Performing Lab: [address] [address] [facility] URINE DRUG SCREEN (STL) CREATININE [MASS/VOLUM E] IN URINE 67.2 mg/dL 63 - 166 06/21 Specimen Type: URINE Comment: The cut-off value for this test was laboratory developed and its performance characteris tics confirmed by the [facility] laboratory thru method comparison with reference laboratory and medication chart review. The laboratory is regulated under CLIA as qualified to perform high-comple xity testing. This test is used for clinical purposes in conjunction with other laboratory tests. Ordering Provider: RAJANI WOLFE Report Released Date/Time: May 28, 2024 02:02 PM Reporting Lab: [facility] [address] [facility] [address] Performing Lab: [facility] [address] [place] [phone] [facility] URINE DRUG SCREEN (STL) OXYCODONE CUTOFF [MASS/VOLUM E] IN URINE FOR SCREEN METHOD Negati veng/m L 06/21 Specimen Type: URINE Comment: The cut-off value for this test was laboratory developed and its performance characteris tics confirmed by the [facility] laboratory thru method comparison with reference laboratory and medication chart review. The laboratory is regulated under CLIA as qualified to perform high-comple xity testing. This test is used for clinical purposes in conjunction with other laboratory tests. Ordering Provider: RAJANI WOLFE Report Released Date/Time: May 28, 2024 02:02 PM Reporting Lab: [address] [address] Performing Lab: [address] [address] [facility] URINE DRUG SCREEN (STL) BUPRENORPHI NE [PRESENCE] IN URINE Negati veng/m L 06/21 Specimen Type: URINE Comment: The cut-off value for this test was laboratory developed and its performance characteris tics confirmed by the [facility] laboratory thru method comparison with reference laboratory and medication chart review. The laboratory is regulated under CLIA as qualified to perform high-comple xity testing. This test is used for clinical purposes in conjunction with other laboratory tests. Ordering Provider: RAJANI WOLFE Report Released Date/Time: May 28, 2024 02:02 PM Reporting Lab: [place] [address] [facility] [address] Performing Lab: [address] [phone] URINE DRUG SCREEN (STL) FENTANYL [PRESENCE] IN URINE Negati veng/m L 06/21 Specimen Type: URINE Comment: The cut-off value for this test was laboratory developed and its performance characteris tics confirmed by the [facility] laboratory thru method comparison with reference laboratory and medication chart review. The laboratory is regulated under CLIA as qualified to perform high-comple xity testing. This test is used for clinical purposes in conjunction with other laboratory tests. Ordering Provider: RAJANI WOLFE Report Released Date/Time: May 28, 2024 02:02 PM Reporting Lab: [place] [address] Performing Lab: [address] [id number] HEMOGLOBIN A1C/HEMOGLO BIN.TOTAL IN BLOOD 6.4 4.0 - 6.0 06/21 H Specimen Type: BLOOD No comment entered. Ordering Provider: CHESTER MALDONADO Report Released Date/Time: Jun 19, 2024 03:02 PM Reporting Lab: [place] [id number] Performing Lab: [address] TSH (MA-PB) THYROTROPIN [UNITS/VOLU ME] IN SERUM OR PLASMA 1.328 u[IU]/ mL 0.47 - 5 06/21 Specimen Type: SERUM No comment entered. Ordering Provider: CHESTER MALDONADO Report Released Date/Time: Jun 19, 2024 03:02 PM Reporting Lab: [place] [id number] Performing Lab: [place] [id number] [place] [address] URINALYSI S (STL-PB) COLOR OF URINE Light- Yellow 06/21 Specimen Type: URINE No comment entered. Ordering Provider: CHESTER MALDONADO Report Released Date/Time: Jun 19, 2024 03:02 PM Reporting Lab: [place] [id number] Performing Lab: [address] [phone] [place] [address] URINALYSI S (STL-PB) BILIRUBIN.T OTAL [PRESENCE] IN URINE BY TEST STRIP Negati vemg/d L 06/21 Specimen Type: URINE No comment entered. Ordering Provider: CHESTER MALDONADO Report Released Date/Time: Jun 19, 2024 03:02 PM Reporting Lab: [place] [address] Performing Lab: [place] [id number] URINALYSI S (STL-PB) PH OF URINE BY TEST STRIP 6.0 5.0 - 8.0 06/21 Specimen Type: URINE No comment entered. Ordering Provider: CHESTER MALDONADO Report Released Date/Time: Jun 19, 2024 03:02 PM Reporting Lab: [place] [id number] Performing Lab: [address] [phone] [place] [address] URINALYSI S (STL-PB) APPEARANCE OF URINE Clear 06/21 Specimen Type: URINE No comment entered. Ordering Provider: CHESTER MALDONADO Report Released Date/Time: Jun 19, 2024 03:02 PM Reporting Lab: [place] [id number] Performing Lab: [address] [phone] [place] [address] URINALYSI S (STL-PB) NITRITE [PRESENCE] IN URINE BY TEST STRIP Negati vemg/d L 06/21 Specimen Type: URINE No comment entered. Ordering Provider: CHESTER MALDONADO Report Released Date/Time: Jun 19, 2024 03:02 PM Reporting Lab: [place] [id number] Performing Lab: [facility] [address] [place] [phone] [facility] URINALYSI S (STL-PB) GLUCOSE [MASS/VOLUM E] IN URINE BY TEST STRIP 50 mg/dL 06/21 H Specimen Type: URINE No comment entered. Ordering Provider: CHESTER MALDONADO Report Released Date/Time: Jun 19, 2024 03:02 PM Reporting Lab: [place] [id number] Performing Lab: [address] [phone] [place] [address] URINALYSI S (STL-PB) PROTEIN [MASS/VOLUM E] IN URINE BY TEST STRIP Negati vemg/d L - 20 06/21 Specimen Type: URINE No comment entered. Ordering Provider: CHESTER MALDONADO Report Released Date/Time: Jun 19, 2024 03:02 PM Reporting Lab: [address] [address] Performing Lab: [address] [phone] [place] [address] URINALYSI S (STL-PB) URN.UROBILI NOGEN Normal mg/dL 06/21 Specimen Type: URINE No comment entered. Ordering Provider: CHESTER MALDONADO Report Released Date/Time: Jun 19, 2024 03:02 PM Reporting Lab: [address] [address] Performing Lab: [address] [address] [facility] URINALYSI S (STL-PB) HEMOGLOBIN [MASS/VOLUM E] IN URINE BY TEST STRIP Negati vemg/d L 06/21 Specimen Type: URINE No comment entered. Ordering Provider: CHESTER MALDONADO Report Released Date/Time: Jun 19, 2024 03:02 PM Reporting Lab: [address] [address] Performing Lab: [address] [address] [facility] URINALYSI S (STL-PB) KETONES [MASS/VOLUM E] IN URINE BY TEST STRIP Negati vemg/d L 06/21 Specimen Type: URINE No comment entered. Ordering Provider: CHESTER MALDONADO Report Released Date/Time: Jun 19, 2024 03:02 PM Reporting Lab: [address] [address] Performing Lab: [address] [phone] URINALYSI S (STL-PB) URN.LEUK.ES T. Negati vemg/d L 06/21 Specimen Type: URINE No comment entered. Ordering Provider: CHESTER MALDONADO Report Released Date/Time: Jun 19, 2024 03:02 PM Reporting Lab: [address] [address] Performing Lab: [address] [phone] [place] [address] URINALYSI S (STL-PB) SPECIFIC GRAVITY OF URINE 1.015 1.005 - 1.029 06/21 Specimen Type: URINE No comment entered. Ordering Provider: CHESTER MALDONADO Report Released Date/Time: Jun 19, 2024 03:02 PM Reporting Lab: [address] [address] Performing Lab: [address] [address] [facility] Vital Signs Combined list of inpatient and outpatient Vital Signs from Department of Defense and Veterans Affairs, ranging from 12 months to all on record, depending upon the facility. Vital Sign Value Date Comments Source SYSTOLIC BLOOD PRESSURE 104 01/15/2025 15:38:28 [facility] DIASTOLIC BLOOD PRESSURE 62 01/15/2025 15:38:28 [facility] PULSE OXIMETRY 97 01/15/2025 15:38:28 [facility] WEIGHT 262.9 01/15/2025 15:38:28 [facility] BMI 30 kg/m2 01/15/2025 15:38:28 [facility] PAIN 0 01/15/2025 15:38:28 [facility] HEIGHT 79 01/15/2025 15:38:28 [facility] TEMPERATURE 97.9 01/15/2025 15:38:28 [facility] PULSE 81 01/15/2025 15:38:28 [facility] RESPIRATION 20 01/15/2025 15:38:28 [facility] SYSTOLIC BLOOD PRESSURE 128 11/25/2024 10:55:24 [facility] DIASTOLIC BLOOD PRESSURE 76 11/25/2024 10:55:24 [facility] PULSE OXIMETRY 99 11/25/2024 10:55:24 [facility] WEIGHT 266.6 11/25/2024 10:55:24 [facility] BMI 30 kg/m2 11/25/2024 10:55:24 [facility] PAIN 2 11/25/2024 10:55:24 [facility] HEIGHT 79 11/25/2024 10:55:24 [facility] TEMPERATURE 97.4 11/25/2024 10:55:24 [facility] PULSE 76 11/25/2024 10:55:24 [facility] RESPIRATION 16 11/25/2024 10:55:24 [facility] SYSTOLIC BLOOD PRESSURE 120 10/17/2024 10:51:08 [facility] DIASTOLIC BLOOD PRESSURE 73 10/17/2024 10:51:08 [facility] PULSE OXIMETRY 98 10/17/2024 10:51:08 [facility] PAIN 3 10/17/2024 10:51:08 [facility] TEMPERATURE 97.9 10/17/2024 10:51:08 [facility] PULSE 82 10/17/2024 10:51:08 [facility] RESPIRATION 18 10/17/2024 10:51:08 [facility] SYSTOLIC BLOOD PRESSURE 114 09/27/2024 14:23:39 [facility] DIASTOLIC BLOOD PRESSURE 74 09/27/2024 14:23:39 [facility] PULSE OXIMETRY 100 09/27/2024 14:23:39 [facility] WEIGHT 262.7 09/27/2024 14:23:39 [facility] BMI 30 kg/m2 09/27/2024 14:23:39 [facility] PAIN 0 09/27/2024 14:23:39 [facility] HEIGHT 79 09/27/2024 14:23:39 [facility] TEMPERATURE 97.9 09/27/2024 14:23:39 [facility] PULSE 85 09/27/2024 14:23:39 [facility] RESPIRATION 18 09/27/2024 14:23:39 [facility] SYSTOLIC BLOOD PRESSURE 108 08/07/2024 13:30:31 [facility] DIASTOLIC BLOOD PRESSURE 68 08/07/2024 13:30:31 [facility] PULSE OXIMETRY 98 08/07/2024 13:30:31 [facility] WEIGHT 262.8 08/07/2024 13:30:31 [facility] BMI 30 kg/m2 08/07/2024 13:30:31 [facility] PAIN 0 08/07/2024 13:30:31 [facility] TEMPERATURE 97.3 08/07/2024 13:30:31 [facility] PULSE 89 08/07/2024 13:30:31 [facility] RESPIRATION 20 08/07/2024 13:30:31 [facility] Encounters Combined list of: 1) Encounters from Department of [facility] Affairs facilities going backup to the last 18 months, not all [place] inpatient encounters are included; 2) Encounters from the Department of [facility] facilities going backup to 280 months. Location Location Details Encounter Type Encounter Number Reason For Visit Attending Provider ADM Date DC Date Status Disposition Source [facility] Outpatient Encounter [id number] KAYDEN RODARTE 08/01 [facility] Outpatient Encounter [id number] SABAS SINCLAIR 08/04 [facility] Outpatient Encounter [id number] KATHERIN NORWOOD 08/[address] [facility] OFFICE O/P EST SF 10-19 MIN [id number] [id number] Diagnos is: ICD-10- CM C61 Maligna nt neoplas CHARLY Saucedo 08/[address] [facility] Outpatient Encounter [id number] JUAN PABLO ROLAND 08/[address] [facility] Outpatient Encounter [id number] JENY AGUIRRE SA R 08[facility]10 [facility] Outpatient Encounter [id number] 08/10 [facility] N [facility] Outpatient Encounter [id number] ALEX PERKINS 08/11 [facility] Outpatient Encounter [id number] JOSH CHAUDHARI 08/[address] [facility] Outpatient Encounter [id number] 08/[address] [facility] Outpatient Encounter [id number] JENY AGUIRRE SA R 08/17 [facility] Outpatient Encounter [id number] CATRACHO LORENZO 08/[address] [facility] Outpatient Encounter [id number] CATRACHO LORENZO 08/[address] [facility] Outpatient Encounter [id number] CATRACHO LORENZO 08/22 [facility] OFFICE O/P EST LOW 20-29 MIN [id number] [id number] Diagnos is: ICD-10- CM L72.9 Follicu lar cyst of the skin and subcuta neous tissue, unsp Claribel SHAW 08/29 [facility] MTMS BY PHARM ADDL 15 MIN [id number] [id number] Diagnos is: ICD-10- CM Z79.891 [facility] (curren t) use of opiate analges GURJIT Reyes D 08/30 [facility] DIAB SHOE FOR DENSITY INSERT [id number] Diagnos is: ICD-10- CM E11.40 Type 2 diabete s mellitu s with diabeti c neuropa thy, unsp AUGUSTINE,I AN R 08/31 [facility] ORTHOTIC MGMT&TRAIN G 1ST ENC [id number] [id number] Diagnos is: ICD-10- CM E11.40 Type 2 diabete s mellitu s with diabeti c neuropa thy, unsp AUGUSTINE,I AN R 09/07 [facility] Outpatient Encounter [id number] 09/20 [facility] Outpatient Encounter [id number] JENY AGUIRRE SA R 09/25 [facility] HC PRO PHONE CALL 11-20 MIN [id number] [id number] Diagnos is: ICD-10- CM M54.50 Low back pain, unspeci fied JENY AGUIRRE SA R 09/25 [facility] Outpatient Encounter [id number] [id number] Diagnos is: ICD-10- CM E11.40 Type 2 diabete s mellitu s with diabeti c neuropa thy, unsp ASTER,MONIQUE ALONSO E 09/27 [facility] OFFICE O/P EST LOW 20-29 MIN [id number] [id number] Diagnos is: ICD-10- CM L60.[address] [place] VERA L 09/27 [facility] DIAB SHOE FOR DENSITY INSERT [id number] [id number] Diagnos is: ICD-10- CM E11.40 Type 2 diabete s mellitu s with diabeti c neuropa thy, unsp AUGUSTINE,I AN R 09/28 [facility] Outpatient Encounter [id number] [id number] 10/06 [facility] DETERMINE REFRACTIVE STATE [id number] Diagnos is: ICD-10- CM H52.4 Presbyo ROSSI Gonzalez 10/16 [facility] Outpatient Encounter [id number] [id number] JUAN PABLO ROLAND 11/14 [facility] Outpatient Encounter [id number] [id number] Leesa ANGELES 11/15 [facility] Outpatient Encounter [id number] CARL ROQUE 11/[address] [facility] Outpatient Encounter [id number] [id number] 11/20 [facility] OFFICE O/P EST MOD 30 MIN [id number] [id number] Diagnos is: ICD-10- CM E11.40 Type 2 diabete s mellitu s with diabeti c neuropa thy, unsp CUCO,HORA CE M 11/28 [facility] OFFICE O/P EST LOW 20 MIN [id number] [id number] Diagnos is: ICD-10- CM M79.7 Fibromy marissa BULLOCK,CAR OL 11/28 [facility] Outpatient Encounter [id number] [id number] KATHERIN NORWOOD CE M 11/28 [facility] OFFICE O/P EST MOD 30 MIN [id number] [id number] Diagnos is: ICD-10- CM E29.1 Testicu lar hypofun ction MUJHOANA,MARQUIS AN 11/[address] [facility] QNHP OL DIG ASSMT&MGMT 5-10 [id number] [id number] Diagnos is: ICD-10- CM E11.40 Type 2 diabete s mellitu s with diabeti c neuropa thy, unsp JEANIE SORENSON I B 12/01 [facility] ORTHOTIC MGMT&TRAIN G 1ST ENC [id number] [id number] Diagnos is: ICD-10- CM E11.40 Type 2 diabete s mellitu s with diabeti c neuropa thy, unsp AUGUSTINE,I AN R 12/06 [facility] Outpatient Encounter [id number] 12/06 [facility] HC PRO PHONE CALL 5-10 MIN [id number] [id number] Diagnos is: ICD-10- CM Z79.891 [facility] (curren t) use of opiate analges DIVINE Conley 12/20 [facility] Outpatient Encounter [id number] [id number] KYARA SOTO GIANCARLO A 12/29 [facility] OFFICE O/P EST LOW 20 MIN [id number] [id number] Diagnos is: ICD-10- CM L60.[address] JODY UART L 01/03 [facility] Outpatient Encounter [id number] [id number] 01/[address] [facility] Outpatient Encounter [id number] [id number] 01/[address] [facility] Outpatient Encounter [id number] [id number] 01/16 [facility] Outpatient Encounter [id number] [id number] Forrest ARRIOLA R 01/23 [facility] OFFICE O/P EST MOD 30 MIN [id number] [id number] Diagnos is: ICD-10- CM E29.1 Testicu lar hypofun ctMARQUIS Marshall AN 01/23 [facility] Outpatient Encounter [id number] [id number] CATRACHO LORENZO 01/24 [facility] MTMS BY PHARM EST 15 MIN [id number] [id number] Diagnos is: ICD-10- CM Z79.891 [facility] (curren t) use of opiate analges ic DIVINE WOLFE 01/31 [facility] Outpatient Encounter [id number] [id number] ADIS ALBERTS Laurel 01/31 [facility] Outpatient Encounter [id number] [id number] MARIA FERNANDA UNDERWOOD L 02/08 [facility] Outpatient Encounter [id number] [id number] LALO BLOOM 02/19 [facility] MULTI DEN INSERT CUSTOM MOLD [id number] [id number] Diagnos is: ICD-10- CM E11.40 Type 2 diabete s mellitu s with diabeti c neuropa thy, unsp AUGUSTINE,I AN R 02/27 [facility] OFFICE O/P EST LOW 20 MIN [id number] [id number] Diagnos is: ICD-10- CM L60.3 Nail dystrop hy JODY,ST UART L 02/28 [facility] Outpatient Encounter [id number] [id number] DEMETRIA NEFF AM H 02/[address] 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 Claribel SHAW 03/29 [facility] Outpatient Encounter [id number] [id number] CHAPIS CAZARES 04/03 [facility] Outpatient Encounter [id number] [id number] CARL ROQUE 04/22 [facility] OFFICE O/P EST HI 40 MIN [id number] [id number] Diagnos is: ICD-10- CM E11.40 Type 2 diabete s mellitu s with diabeti c neuropa thy, unsp KATHERIN NORWOOD M 04/29 [facility] Outpatient Encounter [id number] [id number] 05/06 [facility] Outpatient Encounter [id number] [id number] 05/09 [facility] Outpatient Encounter [id number] [id number] LALO BLOOM Forrest 05/[address] [facility] Outpatient Encounter [id number] [id number] 05/[address] [facility] ODONTOPLAS TY 1-2 TEETH [id number] [id number] Diagnos is: ICD-10- CM Z01.20 Encount er for dental exam and cleanin g w/o abnorma l finding s VICTORIA RADER TIFFANIE 06/[address] [facility] Outpatient Encounter [id number] [id number] 06/[address] [facility] Outpatient Encounter [id number] [id number] GEOVANNA HOUSER A 06/[address] [facility] Outpatient Encounter [id number] [id number] 06/[address] [facility] Outpatient Encounter [id number] [id number] ALESSANDRA MALDONADO 06/[address] [facility] OFFICE O/P EST MOD 30 MIN 61179-4.65 [id number] Diagnos is: ICD-10- CM I10 Essenti al (primar y) hyperte MARQUIS Martines 06/[address] [facility] Outpatient Encounter [id number] [id number] 06/[address] [facility] Outpatient Encounter [id number] [id number] KATHERIN NORWOOD 06/[address] [facility] Outpatient Encounter [id number] [id number] LALO BLOOM 06/24 [facility] Outpatient Encounter 85889-3.65 [id number] 06/[address] [facility] LIMIT ORAL EVAL PROBLM FOCUS 47993-2.65 [id number] Diagnos is: ICD-10- CM Z01.20 Encount er for dental exam and cleanin g w/o abnormVICTORIA Deleon 06/[address] [facility] Outpatient Encounter [id number] [id number] 07/[address] [facility] Outpatient Encounter [id number] [id number] 07/10 [facility] Outpatient Encounter [id number] [id number] 07/16 [facility] Outpatient Encounter [id number] [id number] JD SHETH 07/[address] [facility] Outpatient Encounter [id number] [id number] 07/[address] [facility] Outpatient Encounter [id number] [id number] LALO BLOOM 07/17 [facility] Outpatient Encounter [id number] [id number] 07/[address] [facility] Outpatient Encounter [id number] [id number] JUAN PABLO HEARD 07/23 [facility] MTMS BY PHARM EST 15 MIN [id number] [id number] Diagnos is: ICD-10- CM Z79.891 [facility]CI (curren t) use of opiate analges ic DIVINE WOLFE 07/23 [facility] Outpatient Encounter [id number] [id number] 08/[address] [facility] Outpatient Encounter [id number] [id number] KAYDEN RODARTE 08/[address] [facility] Outpatient Encounter [id number] [id number] 08/[address] [facility] OFFICE O/P EST MOD 30 MIN [id number] [id number] Diagnos is: ICD-10- CM E11.40 Type 2 diabete s mellitu s with diabeti c neuropa thy, unsp MARQUIS MALDONADO AN 08/[address] [facility] INTRAORAL FULL IMAGE SERIES [id number] [id number] Diagnos is: ICD-10- CM Z01.20 Encount er for dental exam and cleanin g w/o abnorma l finding s VICTORIA RADER 08/[address] [facility] Outpatient Encounter [id number] [id number] 08/12 [facility] OFFICE O/P EST MOD 30 MIN [id number] [id number] Diagnos is: ICD-10- CM L57.0 Actinic keratos is Claribel SHAW 08/14 [facility] OFFICE O/P EST LOW 20 MIN 65510-5.65 [id number] Diagnos is: ICD-10- CM L60.[address] JODY UART L 08/20 [facility] Outpatient Encounter [id number] [id number] 08/[address] 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 Outpatient Encounter [id number] 09/[address] [facility] Outpatient Encounter [id number] [id number] 09/16 [facility] OFFICE O/P EST MOD 30 MIN 49134-4.65 [id number] Diagnos is: ICD-10- CM R21 Rash and other nonspec ific skin chemairish jacqueline EPPERSONCLAREKEAGAN XIAOA R 09/16 [facility] Outpatient Encounter [id number] 09/24 [facility] Outpatient Encounter [id number] Diagnos is: ICD-10- CM G89.29 Other chronic pain CROOKS,CAR OL 09/26 [facility] OFFICE O/P EST MOD 30 MIN [id number] [id number] Diagnos is: ICD-10- CM C61 Maligna nt neoplas m of prostfranklin e CHARLY HORTA IS J 09/27 [facility] Outpatient Encounter [id number] [id number] DEMETRIA NEFF AM H 10/[address] [facility] Outpatient Encounter [id number] [id number] 10/04 [facility] MTMS BY PHARM EST 15 MIN 19676-8.65 [id number] Diagnos is: ICD-10- CM Z79.891 [facility] (curren t) use of opiate analges ic DIVINE WOLFE J 10/04 [facility] INTRM OPH EXAM EST PATIENT [id number] [id number] Diagnos is: ICD-10- CM H25.12 Age-rel ated nuclear catarac t, left eye JIMMY, TRINO 10/[address] [facility] OFFICE O/P EST MOD 30 MIN 08230-2.65 [id number] Diagnos is: ICD-10- CM R21 Rash and other nonspec ific skin eruptio n CARAELIAJOANA A 10/16 [facility] OFFICE O/P EST HI 40 MIN 56456-4.65 [id number] 450 Diagnos is: ICD-10- CM Z79.891 [facility] (curren t) use of opiate analges ic MERYLJD J 10/17 [facility] Outpatient Encounter [id number] [id number] 10/[address] [facility] Outpatient Encounter [id number] [id number] 10/23 [facility] OFFICE O/P EST LOW 20 MIN 80505-4.65 [id number] 847 Diagnos is: ICD-10- CM L60.[address] JODY UART L 10/25 [facility] Outpatient Encounter [id number] [id number] CARL ROQUE S 11/19 [facility] MTMS BY PHARM EST 15 MIN 64625-5.65 [id number] 072 Diagnos is: ICD-10- CM Z79.891 [facility] (curren t) use of opiate analges ic DIVINE WOLFE 11/22 [facility] OFFICE O/P EST HI 40 MIN [id number] [id number] Diagnos is: ICD-10- CM E11.40 Type 2 diabete s mellitu s with diabeti c neuropa thy, unsp KATHERIN NORWOOD M 11/25 [facility] Outpatient Encounter [id number] [id number] 11/[address] [facility] Outpatient Encounter [id number] [id number] 11/[address] [facility] FEE 77810-454 [id number] Diagnos is: ICD-10- CM Z55.9 Problem s related to educati on and literac y, unspeci FADUMO Chao 12/[address] [facility] Outpatient Encounter [id number] 01/14 [facility] MTMS BY PHARM EST 15 MIN [id number]. [id number] Diagnos is: ICD-10- CM Z79.891 [facility] (curren t) use of opiate analges ic DIVINE WOLFE J 01/14 [facility] OFFICE O/P EST MOD 30 MIN 19501-7.65 [id number] Diagnos is: ICD-10- CM E29.1 Testicu lar hypofun MARQUIS Devlin 01/[address] [facility] Outpatient Encounter [id number] 01/[address] 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 Social History Type Response Date Comment Sour e Tobacco smoking status NHIS VA-TOBACCO FORMER USER 04/29/2024 [facility] History of tobacco use VA-TOBACCO QUIT 15 YRS OR MORE 04/29/2024 [facility] History of tobacco use VA-TOBACCO FORMER USER 02/22/2023 [facility] History of tobacco use VA-TOBACCO FORMER USER 07/25/2022 [facility] History of tobacco use ORYX ADMIT TOBACCO SCREEN NO 05/26/2021 [facility] History of tobacco use VA-TOBACCO FORMER USER 04/23/2021 [facility] History of tobacco use VA-TOBACCO NEVER USED 08/17/2020 [facility] History of tobacco use VA-TOBACCO NEVER USED 12/25/2018 [facility] History of tobacco use QUIT TOBACCO >7 YEARS AGO 05/25/2018 [facility] History of tobacco use QUIT TOBACCO >7 YEARS AGO 10/03/2017 [facility] Plan of Care List of future care activities from Department of Veterans Affairs facilities. Additional future care activities may be listed in the Assessment and Plan section. Date/Time Care Activity Care Activity Detail Facili ty 01/28/2025 AMBULATORY [facility] 02/05/2025 AMBULATORY - MEDICINE AMBULATORY - MEDICI [facility] 02/12/2025 AMBULATORY - [facility] 02/13/2025 AMBULAT[facility] - SUR[facility] 03[facility]05/2025 AMBULATORY - REHAB MEDICINE [facility] 03/26/2025 [facility] 04/18/2025 AMBULATORY - MEDICINE AMBULATORY - MEDICI NE [facility] 05/07/2025 AMBULATORY - REHAB MEDICINE [facility] 07/23/2025 AMBULATORY - MEDICINE AMBULATORY - MEDICI NE [facility] 01/27/2025 Consult Order CONTACT LENS REQ UEST - PRO Cons Hr Business Partner's Choice [facility] 02/24/2025 Laboratory - Elder Assistant ry Order PROST. SPECIFIC AG.(PB-STL) GOLD/RED SST SERUM SP [facility]
--- OUTSIDE RECORDS SUMMARY | 2025-01-27 16:18 | XMS_ITS | Encounter Summary ---
Author Organization [employer] Address [address] [place] [address] Care Team Providers Care Boxing Promoter Name Role Phone Juan Ha MD Primary Care Provider [phone] Encounter Details Date Type Department Care Team (Latest Contact Info) Description 10/22/2007 Outpatient Historical HIS LAB, [facility] Juan Burnett MD NO ADDRESS ON FILE Pain in Joint, Lower Leg Social History Tobacco Use Types Packs/Day Years Used Date Smoking Tobacco: Never Assessed Sex and Gender Information Value Date Recorded Sex Assigned at Not on file Legal Sex Male 5:29 AM DIRECTOR MARKETING COMMUNICATIONS Gender Identity Not on file Sexual Orientation Not on file documented as of this encounter Plan of Treatment Not on file documented as of this encounter Procedures Procedure Name Priority Date/Time Associated Diagnosis Comments SOURCE, FLUID Routine 10/22/2007 12:15 PM DIRECTOR MARKETING COMMUNICATIONS SYNOVIAL FLUID CRYSTAL Routine 10/22/2007 12:15 PM DIRECTOR MARKETING COMMUNICATIONS documented in this encounter Results * SOURCE, FLUID (10/22/2007 12:15 PM DIRECTOR MARKETING COMMUNICATIONS) SOURCE FLUID Knee, Right INTERFACE SYSTEM 10/22/2007 12:1 5 PM DIRECTOR MARKETING COMMUNICATIONS us Juan Burnett MD HEMATOLOGY ORDERABLES Edited INTERFACE SYSTEM Refer to clinic/hospital department * (ABNORMAL) SYNOVIAL FLUID CRYSTAL (10/22/2007 12:15 PM DIRECTOR MARKETING COMMUNICATIONS) JOINT FLD CRYSTAL QTY Few(A) Negative INTERFACE SYSTEM JOINT FLD CRYSTAL Unidentifiable INTERFACE SYSTEM Comment:probably basic Calci um phosphate CRYSTALS INTERPRETED BY: El Hill MD INTERFACE SYSTEM 10/22/2007 12:1 5 PM DIRECTOR MARKETING COMMUNICATIONS us Juan Burnett MD BODY FLUIDS AND STOOLS Edited INTERFACE SYSTEM Refer to clinic/hospital department documented in this encounter Visit Diagnoses Diagnosis Pain in joint, lower leg documented in this encounter Care Teams Boxing Promoter Relationship Specialty Start Date End Date Juan Ha MD PCP - General Internal Medicine 08/12/11 documented as of this encounter
--- OUTSIDE RECORDS SUMMARY | 2025-01-27 16:18 | XMS_ITS | Encounter Summary ---
Author Name [facility] [place] [facility] [place] Address [address] [place] [address] Care Team Providers Care Phone Operator Name Role Phone SERGEI NORWOOD Primary [...] PART B May 13, 2014 PART B [id number] Matty NERI FATIMAH PATIENT MEDICARE (WNR) MEDICARE (M) PART B May 13, 2014 PART B [id number] Matty NERI FATIMAH PATIENT MEDICARE (WNR) MEDICARE (M) PART A Aug 13, 2011 PART A [id number] Matty NERI FATIMAH PATIENT MEDICARE (WNR) MEDICARE (M) PART A Aug 13, 2011 PART A [id number] Matty NERIIEL PATIENT Selected Encounter This section includes the information on record at [place] for the Encounter. Date/Time Encounter Type Encounter Description Reason Pro vider Source Jul 16, 2024 11:30 AM Outpatient Encounter ADMIN PAT ACTIVTIES (MASNONCT) IHE Encounter Template Text not used by [facility] Plan of Treatment: Future Appointments (+ 6 months) and Future Tests (+/- 45 days) The Plan of Treatment section includes future care activities for the patient from all [place] [facility] This section includes future appointments and future orders which are active, pending or scheduled. Future Appointments This section includes appointments that were scheduled to occur 6 months from the date of the Encounter, up to a maximum of 20 appointments. The data comes from all [place] [facility]. Appointment Date/Time Appointment Type Appointme nt Facility Name Jul 23, 2024 10:45 AM AMBULATORY - MEDICINE [facility] Aug 07, 2024 01:40 PM AMBULATORY - MEDICINE [facility] Aug 08, 2024 01:00 PM AMBULATORY - NONE [facility] Aug 14, 2024 03:15 PM AMBULATORY - MEDICINE [facility] Aug 20, 2024 02:00 PM AMBULATORY - SURGERY [facility] Sep 03, 2024 10:45 AM AMBULATORY - MEDICINE [facility] Sep 09, 2024 10:00 AM AMBULATORY - NONE [facility] Sep 16, 2024 10:45 AM AMBULATORY - MEDICINE [facility] Sep 27, 2024 02:20 PM AMBULATORY - SURGERY [facility] Oct 14, 2024 01:00 PM AMBULATORY - SURGERY [facility] Oct 16, 2024 02:45 PM AMBULATORY - MEDICINE [facility] Oct 17, 2024 10:30 AM [facility] Oct 25, 2024 02:00 PM AMBULATORY - SURGERY [facility] Nov 22, 2024 10:30 AM AMBULATORY - REHAB MEDICIN E [facility] Nov 25, 2024 11:00 AM AMBULATORY - [facility] Lab Results: +/- 30 days of [...] Range Comment Jun 21, 2024 10:44 AM [facility] URINE DRUG SCREEN (STL) Specimen Type: URINE Comment: The cut-off value for this test was laboratory developed and its performance characteristics confirmed by the [facility] laboratory thru method comparison with reference laboratory and medication chart review. The laboratory is regulated under CLIA as qualified to perform high-complexity testing. This test is used for clinical purposes in conjunction with other laboratory tests. Ordering Provider: CASH WOLFE Report Released Date/Time: May 28, 2024 02:02 PM Reporting Lab: [facility] [address] [place] [phone] Performing Lab: [address] [address] ETHANOL Negative mg/dL 0-20 AMPHET/METHAMPHE TAMINE Negative ng/mL COCAINE METABOLITES Negative ng/mL BENZODIAZEPINES (STL) Negative ng/mL CANNABINOIDS Negative ng/mL METHADONE Negative ng/mL OPIATES POSITIVE ng/mL CREATININE URINE/OTHERS 67.2 mg/dL 63-166 OXYCODONE ([id number]) Negative ng/mL BUPRENORPHINE (STL-PB-MA) Negative ng/mL FENTANYL (STL-PB) Negative ng/mL Jun 21, 2024 10:40 AM [facility] HGA1C Specimen Type: BLOOD No comment entered. Ordering Provider: ALFREDITO MALDONADO Report Released Date/Time: Jun 19, 2024 03:02 PM Reporting Lab: [facility] [address] [facility] [address] Performing Lab: [address] [address] HGA1C 6.4 H 4.0-6.0 Jun 21, 2024 10:40 AM [facility] TSH (MA-PB) Specimen Type: SERUM No comment entered. Ordering Provider: ALFREDITO MALDONADO Report Released Date/Time: Jun 19, 2024 03:02 PM Reporting Lab: [facility] [address] [facility] [address] Performing Lab: [facility] [address] [place] [phone] TSH 1.328 u[IU]/mL 0.47-5 Jun 21, 2024 10:40 AM [facility] URINALYSIS (STL-PB) Specimen Type: URINE No comment entered. Ordering Provider: ALFREDITO MALDONADO Report Released Date/Time: Jun 19, 2024 03:02 PM Reporting Lab: [place] [address] [facility] [address] Performing Lab: [address] [address] URINE COLOR Light-Yellow Yellow U.BILIRUBIN Negative mg/dL Negative U.PH 6.0 5.0-8.0 APPEARANCE Clear Clear U.NITRITE Negative mg/dL Negative URN.GLUCOSE 50 mg/dL H Negative URN.PROTEIN Negative mg/dL Neg ative-2 0 URN.UROBILINOGEN Normal mg/dL Normal URN.BLOOD Negative mg/dL Negat guerline-T race URN.KETONES Negative mg/dL Neg ative-T race URN.LEUK.EST. Negative mg/dL N egative-T race URN.SPECIFIC GRAVITY 1.015 1.005-1.02 9 Jun 21, 2024 10:40 AM [facility] COMPREHENSIVE METABOLIC PANEL Specimen Type: PLASMA Comment: No hemolysis noted. Ordering Provider: ALFREDITO MALDONADO Report Released Date/Time: Jun 19, 2024 03:02 PM Reporting Lab: [place] [address] [facility] [address] Performing Lab: [address] [address] CREATININE 1.03 mg/dL 0.7-1.3 UREA NITROGEN 15.3 [...] 74.8 >60 Jun 21, 2024 10:40 AM [facility] CBC Specimen Type: BLOOD No comment entered. Ordering Provider: ALFREDITO MALDONADO Report Released Date/Time: Jun 19, 2024 03:02 PM Reporting Lab: [facility] [address] [facility] [address] Performing Lab: [facility] [address] [facility] [phone] WBC 7.7 10*3/uL 3.6-11.2 RBC 4.45 10*6/uL [...] place. Date/Time Current Smoking Status Comment Facil gamaliel Apr 29, 2024 11:00 AM VA-TOBACCO FORMER USER [facility] Tobacco Use History This section includes a history of the smoking, or tobacco-related health factors, that were collected on or before the date of the Encounter. The data comes from the [place] facility where the Encounter took place. Date/Time Smoking Status/Tobacco Use Comment F acharsh Apr 29, 2024 11:00 AM [place]-TO[place] QUIT 15 YRS OR MORE [facility] Encounter Notes: All associated encounter notes This section contains the clinical notes associated to the Encounter. Date/Time Encounter Note(s) Provider Source Jul 16, 2024 01:46 PM ADDENDUM: LOCAL TITLE: Addendum STANDARD TITLE: ADDENDUM DATE OF NOTE: JUL 16, 2024@13:46:34 ENTRY DATE: JUL 16, 2024@13:46:36 AUTHOR: SCOOBY ARREDONDO EXP COSIGNER: URGENCY: STATUS: COMPLETED correction to above, just mail next refill /fransisco/ SCOOBY ARREDONDO Pharmacist Signed: 07/16/2024 13:47 Receipt Acknowledged By: 07/24/2024 20:08 /es/ SCOTTIE BULLOCK MD PAIN PHYSICIAN --- Original Document --- 07/16/24 PHARMACY GENERAL STL: pt request refill on the following medications hydrocodone (window) /fransisco/ SCOOBY ARREDONDO Pharmacist Signed: 07/16/2024 11:30 Receipt Acknowledged By: 07/17/2024 16:44 /es/ JACQUELIN RIOS, SENIOR SITE MANAGER-[place] RIOS ANP-BC for SCOTTIE BULLOCK 07/16/2024 12:26 /es/ Gilles Smyth PharmD, BCPS Clinical Dry Roaster - Pain Management for CASH WOLFE 07/16/2024 12:33 /es/ JD SHETH Pain Mgmt Physician 07/16/2024 ADDENDUM STATUS: COMPLETED pt request refill on the following medications metformin /es/ SCOOBY E SLY Pharmacist Signed: 07/16/2024 11:31 Receipt Acknowledged By: 07/16/2024 11:36 /fransisco/ SERGEI NORWOOD MD STAFF PHYSICIAN ECRS 07/16/2024 ADDENDUM STATUS: COMPLETED Adding covering provider as Dr. Bullock is currently OOO. /es/ Gilles Smyth PharmD, [facility] Clinical Dry Roaster - Pain Management Signed: 07/16/2024 12:26 SCOOBY ARREDONDO [facility] Jul 16, 2024 11:30 AM ADDENDUM: LOCAL TITLE: Addendum STANDARD TITLE: ADDENDUM DATE OF NOTE: JUL 16, 2024@11:30:57 ENTRY DATE: JUL 16, 2024@11:30:58 AUTHOR: SCOOBY ARREDONDO EXP COSIGNER: URGENCY: STATUS: COMPLETED pt request refill on the following medications metformin /es/ SCOOBY E SLY Pharmacist Signed: 07/16/2024 11:31 Receipt Acknowledged By: 07/16/2024 11:36 /fransisco/ SERGEI NORWOOD MD STAFF PHYSICIAN ECRS --- Original Document --- 07/16/24 PHARMACY GENERAL STL: pt request refill on the following medications hydrocodone (window) /es/ SCOOBY E SLY Pharmacist Signed: 07/16/2024 11:30 Receipt Acknowledged By: * AWAITING SIGNATURE * SCOTTIE BULLOCK * AWAITING SIGNATURE * CASH WOLFE [facility] Jul 16, 2024 11:30 AM PHARMACY PROGRESS NOTE: LOCAL TITLE: PHARMACY GENERAL STL STANDARD TITLE: PHARMACY PROGRESS NOTE DATE OF NOTE: JUL 16, 2024@11:30 ENTRY DATE: JUL 16, 2024@11:30:20 AUTHOR: SCOOBY ARREDONDO EXP COSIGNER: URGENCY: STATUS: COMPLETED PHARMACY GENERAL STL Has ADDENDA pt request refill on the following medications hydrocodone (window) /fransisco/ SCOOBY ARREDONDO Pharmacist Signed: 07/16/2024 11:30 Receipt Acknowledged By: 07/17/2024 16:44 /es/ JACQUELIN RIOS, SENIOR SITE MANAGER-BC JACQUELIN RIOS, ANP-BC for SCOTTIE BULLOCK 07/16/2024 12:26 /es/ Gilles Smyth PharmD, [facility] Clinical Dry Roaster - Pain Management for CASH WOLFE 07/16/2024 12:33 /es/ JD SHETH Pain Mgmt Physician 07/16/2024 ADDENDUM STATUS: COMPLETED pt request refill on the following medications metformin /fransisco/ SCOOBY ARREDONDO Pharmacist Signed: 07/16/2024 11:31 Receipt Acknowledged By: 07/16/2024 11:36 /es/ SERGEI NORWOOD MD STAFF PHYSICIAN ECRS 07/16/2024 ADDENDUM STATUS: COMPLETED Adding covering provider as Dr. Bullock is currently OOO. /fransisco/ Gilles Smyth PharmD, [facility] Clinical Dry Roaster - Pain Management Signed: 07/16/2024 12:26 07/16/2024 ADDENDUM STATUS: COMPLETED correction to above, just mail next refill /surendra ARREDONDO Pharmacist Signed: 07/16/2024 13:47 Receipt Acknowledged By: * AWAITING SIGNATURE * SCOTTIE BULLOCK [facility]
--- OUTSIDE RECORDS SUMMARY | 2025-01-27 16:18 | XMS_ITS | Encounter Summary ---
Author Organization [facility] Address 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
--- OUTSIDE RECORDS SUMMARY | 2025-01-27 16:18 | XMS_ITS | Encounter Summary ---
Author Name [facility] Organization [facility] ([place]) Address [address] [place] [address] Care Team Providers Care Insurance Sales Executive Name Role Phone SERGEI NORWOOD Primary Care [...] PART B May 13, 2014 PART B [id number] NERIMatty FATIMAH PATIENT MEDICARE (WNR) MEDICARE (M) PART B May 13, 2014 PART B [id number] Matty NERI FTAIMAH PATIENT MEDICARE (WNR) MEDICARE (M) PART A Aug 13, 2011 PART A [id number] Matty NERI FATIMAH PATIENT MEDICARE (WNR) MEDICARE (M) PART A Aug 13, 2011 PART A [id number] Matty NERI FATIMAH PATIENT Selected Encounter This section includes the information on record at [place] for the Encounter. Date/Time Encounter Type Encounter Description Reason Provider Source Sep 16, 2024 10:45 AM OFFICE O/P EST MOD 30 MIN DERMATOLOGY ICD-10-CM R21 Rash and other nonspecific skin eruption JAMEY GOMEZ Encounter Template Text not used by [place] Assessments - Encounter Diagnoses This section includes the primary and secondary diagnoses documented for the Encounter. Date/Time Primary/Secondary Diagnosis Diagnosis Name Provider Source Sep 16, 2024 04:09 PM PRIMARY Rash and other nonspecific skin eruption LADY MATIAS [facility] Plan of Treatment: Future Appointments (+ 6 months) and Future Tests (+/- 45 days) The Plan of Treatment section includes future care activities for the patient from all [place] [facility]. This section includes future appointments and future orders which are active, pending or scheduled. Future Appointments This section includes appointments that were scheduled to occur 6 months from the date of the Encounter, up to a maximum of 20 appointments. The data comes from all [place] treatment facilities. Appointment Date/Time Appointment Type Appointme nt Facility Name Sep 27, 2024 02:20 PM AMBULATORY - SURGERY [facility] Oct 14, 2024 01:00 PM AMBULATORY - SURGERY [facility] Oct 16, 2024 02:45 PM AMBULATORY - MEDICINE [facility] Oct 17, 2024 10:30 AM AMBULATORY - REHAB MEDICIN E [facility] Oct 25, 2024 02:00 PM AMBULATORY - SURGERY [facility] Nov 22, 2024 10:30 AM AMBULATORY - REHAB MEDICIN E [facility] Nov 25, 2024 11:00 AM AMBULATORY - REHAB MEDICIN E [facility] Jan 15, 2025 03:40 PM AMBULATORY - MEDICINE [facility] Jan 28, 2025 02:00 PM AMBULATORY - SURGERY [facility] Feb 05, 2025 03:00 PM AMBULATORY - MEDICINE [facility] Feb 12, 2025 01:45 PM AMBULATORY - MEDICINE [facility] Feb 13, 2025 01:00 PM AMBULATORY - SURGERY [facility] Mar 05, 2025 11:15 AM AMBULATORY - REHAB MEDICIN E [facility] Active, Pending, and Scheduled Orders This section includes a listing of several types of active, pending, and scheduled orders, including clinic medications orders, diagnostic test orders, procedure orders and consult orders; where the start date of the order is 45 days before the date of the Encounter or 45 days after the date of theEncounter. The data comes from all [place] treatment facilities. Test Date/Time Test Type Test Details Facility Name Sep 02, 2024 12:00 AM Laboratory - Chemi stry Order URINE DRUG SCREEN (STL) URINE YELLOW SP [facility] Oct 17, 2024 12:00 AM Laboratory - Chemi stry Order LIPID PANEL (STL) GREEN LI/HEP BLD/PLAS PLASMA SP [facility] Lab Results: +/- 30 days of the encounter This section includes the Chemistry and Hematology Lab Results on record with [place] for the patient. Radiology Reports and Pathology Reports are provided separately, in subsequent sections. Lab Results This section contains the Chemistry/Hematology Results that were resulted 30 days before or 30 daysafter the date of the Encounter. Date/Time Source Result Type Result - Unit Interpretation Reference Range Comment Sep 27, 2024 03:15 PM [facility] URINE DRUG SCREEN (STL) Specimen Type: URINE Comment: The cut-off value for Fentanyl was laboratory developed and its performance characteristics confirmed by the [facility] laboratory thru method comparison with reference laboratory and medication chart review. The laboratory is regulated under CLIA as qualified to perform high-complexity testing. Fentanyl is used for clinical purposes in conjunction with other laboratory tests. Ordering Provider: SCOTTIE BULLOCK Report Released Date/Time: Sep 26, 2024 09:24 AM Reporting Lab: [facility] [address] [id number] Performing Lab: [facility] [address] [address] ETHANOL Negative mg/dL 0-20 AMPHET/METHAMPHE TAMINE Negative ng/mL COCAINE METABOLITES Negative ng/mL BENZODIAZEPINES (STL) Negative ng/mL CANNABINOIDS Negative ng/mL METHADONE Negative ng/mL OPIATES POSITIVE ng/mL CREATININE URINE/OTHERS 115.1 mg/dL 63-166 OXYCODONE ([id number]) Negative ng/mL BUPRENORPHINE (STL-PB-MA) Negative ng/mL FENTANYL (STL-PB) Negative ng/mL Sep 27, 2024 03:13 PM [facility] PROST. SPECIFIC AG.(PB-STL) Specimen Type: SERUM Comment: The listed sex of this patient may not be a typical indication for this test. Therefore, reference ranges or interpretive criteria listed may not be valid. Clinical correlation suggested. Ordering Provider: HARIS MCMULLEN Report Released Date/Time: Sep 27, 2024 02:58 PM Reporting Lab: [facility] [address] [address] Performing Lab: [facility] [address] [facility] [address] PROST. SPECIFIC AG.(PB-STL) 0.118 ng/mL 0-4 Encounter Notes: All associated encounter notes This section contains the clinical notes associated to the Encounter. 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 History, medications and allergies reviewed. ROS: no new rashes, growths, changing moles, no vision changes Exam: -DIffuse erythema with erosions and excoriations over the dorsal R forearm, no lesions on left arm General Appearance: Well-appearing, NAD Face: otherwise unremarkable Ears: otherwise unremarkable Scalp, Hair: otherwise unremarkable Neck: otherwise unremarkable Upper Extremities: otherwise unremarkable Nails: otherwise unremarkable Mood/Affect: appropriate Assessment and Plan: #Rash Favor 2/2 to Brachioradial pruritus vs true eczematous proccess -Will treat itch and inlammatory component today - Recommend frequent emollients - CONTINUE SARNA camphor/menthol lotion - apply to itchy spots on arms TID - store in fridge - new Rx sent today - START clobetasol 0.05% ointment to AA BID, SER thinning of the skin, - START cetrizine 10 mg BID PO; SER -If not improved with above favor trialing gabapentin RTC 1 month /fransisco/ LADY MATIAS Dermatology resident Signed: 09/16/2024 16:09 /fransisco/ JAMEY GOMEZ MD DERMATOLOGY & DERMATOPATHOLOGY Cosigned: 09/16/2024 16:10 09/16/2024 ADDENDUM STATUS: COMPLETED Reviewed documented history and physical examination and agree with assessment and plan. I was immediately available during entire visit and procedures. /fransisco/ JAMEY GOMEZ MD DERMATOLOGY & DERMATOPATHOLOGY Signed: 09/16/2024 16:10 LADY MATIAS [facility]
--- OUTSIDE RECORDS SUMMARY | 2025-01-27 16:18 | XMS_ITS | Encounter Summary ---
Author Organization [facility] Address 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
--- OUTSIDE RECORDS SUMMARY | 2025-01-27 16:18 | XMS_ITS | Encounter Summary ---
Author Name [facility] Organization [facility] [place]) Address [address] [place] [address] Care Team Providers Care Steam Generating Powerplant Mechanic Name Role Phone SERGEI NORWOOD Primary Care [...] PART B May 13, 2014 PART B [id number] Matty NERI FATIMAH PATIENT MEDICARE (WNR) MEDICARE (M) PART B May 13, 2014 PART B [id number] Matty NERI FATIMAH PATIENT MEDICARE (WNR) MEDICARE (M) PART A Aug 13, 2011 PART A [id number] [id number] Matty NERI FATIMAH PATIENT MEDICARE (WNR) MEDICARE (M) PART A Aug 13, 2011 PART A [id number] Matty NERI FATIMAH PATIENT Selected Encounter This section includes the information on record at [place] for the Encounter. Date/Time Encounter Type Encounter Description Reason Provider Source March 29, 2024 11:30 AM OFFICE O/P EST MOD 30 MIN DERMATOLOGY ICD-10-CM L21.8 Other seborrheic dermatitis KAREN SHAW Selam Encounter Template Text not used by [place] Assessments - Encounter Diagnoses This section includes the primary and secondary diagnoses documented for the Encounter. Date/Time Primary/Secondary Diagnosis Diagnosis Name Provider Source March 29, 2024 12:13 PM PRIMARY Other seborrheic dermatitis CARRIZALESRALPH HAJI [facility] March 29, 2024 12:13 PM SECONDARY Hemangioma of skin and subcutaneous tissue CARRIZALES,RALPH [facility] March 29, 2024 12:13 PM SECONDARY Other melanin hyperpigmentation CARRIZALES,RALPH [facility] March 29, 2024 12:13 PM SECONDARY Other seborrheic keratosis CARRIZALES,RALPH [facility] March 29, 2024 12:13 PM SECONDARY Personal history of other malignant neoplasm of skin CARRIZALES,RALPH [facility] March 29, 2024 12:13 PM SECONDARY Xerosis cutis [facility] Plan of Treatment: Future Appointments (+ 6 months) and Future Tests (+/- 45 days) The Plan of Treatment section includes future care activities for the patient from all [place] [facility]. This section includes future appointments and future orders which are active, pending or scheduled. Future Appointments This section includes appointments that were scheduled to occur 6 months from the date of the Encounter, up to a maximum of 20 appointments. The data comes from all [place] treatment facilities. Appointment Date/Time Appointment Type Appointme nt Facility Name Apr 29, 2024 11:00 AM AMBULATORY - REHAB MEDICIN E [facility] May 06, 2024 02:30 PM AMBULATORY - NONE [facility] Jun 03, 2024 09:00 AM AMBULATORY - MEDICINE [facility] Jun 19, 2024 02:00 PM AMBULATORY - MEDICINE [facility] Jun 28, 2024 11:00 AM AMBULATORY - NONE [facility] Jul 01, 2024 09:00 AM AMBULATORY - NONE [facility] Jul 01, 2024 10:00 AM AMBULATORY - NONE [facility] Jul 04, 2024 08:00 AM AMBULATORY - NONE [facility] Jul 08, 2024 09:30 AM AMBULATORY - NONE [facility] Jul 08, 2024 10:00 AM AMBULATORY - NONE [facility] Jul 23, 2024 10:45 AM AMBULATORY - MEDICINE [facility] Aug 07, 2024 01:40 PM AMBULATORY - MEDICINE [facility] Aug 08, 2024 01:00 PM AMBULATORY - NONE [facility] Aug 14, 2024 03:15 PM AMBULATORY - MEDICINE [facility] Aug 20, 2024 02:00 PM AMBULATORY - SURGERY [facility] Sep 03, 2024 10:45 AM AMBULATORY - MEDICINE [facility] Sep 09, 2024 10:00 AM AMBULATORY - NONE [facility] Sep 16, 2024 10:45 AM AMBULATORY - MEDICINE [facility] Sep 27, 2024 02:20 PM AMBULATORY - SURGERY [facility] Lab Results: +/- 30 days of [...] Range Comment Mar 06, 2024 10:41 AM [facility] METHADONE PANEL (STL) Specimen Type: URINE Comment: The cut-off value for this test was laboratory developed and its performance characteristics confirmed by the [facility] laboratory thru method comparison with reference laboratory and medication chart review. The laboratory is regulated under CLIA as qualified to perform high-complexity testing. This test is used for clinical purposes in conjunction with other laboratory tests. Ordering Provider: CASH WOLFE Report Released Date/Time: Mar 06, 2024 08:09 AM Reporting Lab: [facility] [address] [facility] [facility] [id number] Performing Lab: [place] [id number] [facility] [address] ETHANOL Negative mg/dL 0-20 AMPHET/METHAMPHE TAMINE Negative ng/mL COCAINE METABOLITES Negative ng/mL BENZODIAZEPINES (STL) Negative ng/mL CANNABINOIDS Negative ng/mL METHADONE Negative ng/mL OPIATES >1000-POS ng/mL CREATININE URINE/OTHERS 100.9 mg/dL 63-166 OXYCODONE ([id number]) Negative ng/mL BUPRENORPHINE (STL-PB-MA) Negative FENTANYL (STL-PB) Negative ng/mL Encounter Notes: All associated encounter notes This section contains the clinical notes associated to the Encounter. Date/Time Encounter Note(s) Provider Source March 29, 2024 12:00 PM DERMATOLOGY NOTE: LOCAL TITLE: DERMATOLOGY NOTE STANDARD TITLE: DERMATOLOGY NOTE DATE OF NOTE: MARCH 29, 2024@12:00 ENTRY DATE: MARCH 29, 2024@12:01 AUTHOR: RALPH CARRIZALES COSIGNER: JAMEY GOMEZ URGENCY: STATUS: COMPLETED DERMATOLOGY NOTE Has ADDENDA CC: FBSE HPI: HUYEN NERI is a 78 year old WHITE MALE with a history of BCC L lower eyelid s/p Mohs 2018 here for FBSE. Today: - Skin has been very itchy for the last several weeks, especially scalp. He is also itchy on his arms and trunk. - No other lesions he is concerned about. 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 History, medications and allergies reviewed. ROS: no new rashes, growths, changing moles, no vision changes Exam: Diffuse xerosis Mild erythema of scalp Multiple stuck-on waxy collazo plaques, trunk and extremities Multiple regular collazo to brown round macules, trunk and extremities Red dome-shaped papules, trunk and extremities WHSS as above General Appearance: Well-appearing, NAD Face: otherwise unremarkable Ears: otherwise unremarkable Scalp, Hair: otherwise unremarkable Neck: otherwise unremarkable Chest: otherwise unremarkable Abd: otherwise unremarkable Back: otherwise unremarkable Upper Extremities: otherwise unremarkable Nails: otherwise unremarkable Mood/Affect: appropriate Assessment and Plan: Xerosis cutis Pruritis - Recommended frequent emollients, lay after getting out of the shower - CBC/CMP unremarkable 02/2024 Seborrheic dermatitis - Start DAISHA 2% shampoo - Start clob sln qday prn Seborrheic keratoses [place] angiomas Lentigines - Benign, patient reassured Hx NMSC - NER - Photoprotect, daily SPF 30+ - Return for tender/bleeding/change - Regular self and MD skin checks RTC 1 year sooner prn /fransisco/ Ralph Carrizales MD Dermatology Resident Signed: 03/29/2024 12:13 /fransisco/ JAMEY GOMEZ MD DERMATOLOGY & DERMATOPATHOLOGY Cosigned: 04/01/2024 13:23 04/01/2024 ADDENDUM STATUS: COMPLETED Reviewed documented history and physical examination and agree with assessment and plan. I was immediately available during entire visit and procedures. /fransisco/ JAMEY GOMEZ MD DERMATOLOGY & DERMATOPATHOLOGY Signed: 04/01/2024 13:23 RALPH CARRIZALES [facility]
--- OUTSIDE RECORDS SUMMARY | 2025-01-27 16:18 | XMS_ITS ---
Author Organization [address] Address [address] [place] [id number] Care Team Providers Care Job Foreman Name Role Phone No, Physician Primary Care Provider [phone] Demetrius Espitia MD Unavailable [phone] Henry Barton MD Unavailable [phone] Active Problems Problem Noted Date Diagnosed Date [...] neuropathy 09/18/2017 Overview (03/18/2022): Overview: Neurologist at [facility] Neurologist at [facility] Other chronic pain 09/18/2017 Primary osteoarthritis of [...]
--- OUTSIDE RECORDS SUMMARY | 2025-01-27 16:18 | XMS_ITS | Encounter Summary ---
Author Organization [facility] Address [address] [place] [address] Care Team Providers Care Core Assembly Supervisor Name Role Phone Juan Ha MD Primary Care Provider [phone] Michelle Barbosa RN Unavailable Unavailable Juan Joshi I OD Unavailable [facility] Unavailab le Reason for Visit * Reason Onset Date Comments MEDICATION REFILL 08/14/2018 Encounter Details Date Type Department Care Team (Late st Contact Info) Description 08/14/2018 Refill [facility] General Internal Medicine [address] [place] [address] Juan Ha MD [address] [facility] [address] [place] [address] MEDICATION REFILL Social History Tobacco Use Types [...] pain documented in this encounter Care Teams Core Assembly Supervisor Relationship Specialty Start Date End Date Juan Ha MD PCP - General 07/04/16 Michelle Barbosa compounder sterile productsSander And Polisher 02/26/19 Juan Joshi I, DAPHNE [address] [facility] [place] [id number] Metallurgical Engineer Low Records Analyst 12/21/21 [facility], Sivan Jimenez [address] [place] [address] 12/21/21 documented as of this encounter
--- OUTSIDE RECORDS SUMMARY | 2025-01-27 16:18 | XMS_ITS | Encounter Summary ---
Author Name [facility] [place] [facility] [place] Address [address] [place] [address] Care Team Providers Care Clinical Trial Data Manager Name Role Phone SERGEI NORWOOD Primary Care [...] PART B May 13, 2014 PART B [id number] NERIMatty FATIMAH PATIENT MEDICARE (WNR) MEDICARE (M) PART B May 13, 2014 PART B [id number] Matty NERI FATIMAH PATIENT MEDICARE (WNR) MEDICARE (M) PART A Aug 13, 2011 PART A [id number] NERIMatty FATIMAH PATIENT MEDICARE (WNR) MEDICARE (M) PART A Aug 13, 2011 PART A [id number] Matty NERIIEL PATIENT Selected Encounter This section includes the information on record at [place] for the Encounter. Date/Time Encounter Type Encounter Description Reason Provider Source Sep 27, 2024 02:20 PM OFFICE O/P EST MOD 30 MIN UROLOGY CLINIC ICD-10-CM C61 Malignant neoplasm of prostate REBECCA HORTA Selam Encounter Template Text not used by [place] Assessments - Encounter Diagnoses This section includes the primary and secondary diagnoses documented for the Encounter. Date/Time Primary/Secondary Diagnosis Diagnosis Name Provider Source Sep 27, 2024 03:12 PM PRIMARY Malignant neoplasm of prostate TABATHA MCMULLEN [facility] Plan of Treatment: Future Appointments (+ 6 months) and Future Tests (+/- 45 days) The Plan of Treatment section includes future care activities for the patient from all [place] [facility]. This section includes future appointments and future orders which are active, pending or scheduled. Future Appointments This section includes appointments that were scheduled to occur 6 months from the date of the Encounter, up to a maximum of 20 appointments. The data comes from all [place] treatment facilities. Appointment Date/Time Appointment Type Appointme nt Facility Name Oct 14, 2024 01:00 PM AMBULATORY - SURGERY [facility] Oct 16, 2024 02:45 PM [facility] Oct 17, 2024 10:30 AM AMBULATORY - REHAB MEDICIN E [facility] Oct 25, 2024 02:00 PM AMBULATORY - SURGERY [facility] Nov 22, 2024 10:30 AM AMBULATORY - REHAB MEDICIN E [facility] Nov 25, 2024 11:00 AM AMBULATORY - REHAB MEDICIN E [facility] Jan 15, 2025 03:40 PM AMBULATORY - MEDICINE [facility] Jan 28, 2025 02:00 PM AMBULATORY - SURGERY [facility] Feb 05, 2025 03:00 PM [facility] Feb 12, 2025 01:45 PM [facility] Feb 13, 2025 01:00 PM AM[facility]ULATORY - SURGERY [facility] Mar 05, 2025 11:15 AM AMBULATORY - REHAB MEDICIN E [facility] March 26, 2025 11:20 AM AMBULATORY - SURGERY [facility] Active, Pending, and Scheduled Orders This section includes a listing of several types of active, pending, and scheduled orders, including clinic medications orders, diagnostic test orders, procedure orders and consult orders; where the start date of the order is 45 days before the date of the Encounter or 45 days after the date of theEncounter. The data comes from all [place] treatment facilities. Test Date/Time Test Type Test Details Facility Name Sep 02, 2024 12:00 AM Laboratory - Chemi stry Order URINE DRUG SCREEN (STL) URINE YELLOW SP [facility] Oct 17, 2024 12:00 AM Laboratory - Chemi stry Order LIPID PANEL (STL) GREEN LI/HEP BLD/PLAS PLASMA SP [facility] Lab Results: +/- 30 days of [...] Range Comment Sep 27, 2024 03:15 PM [facility] URINE DRUG SCREEN (STL) Specimen Type: URINE Comment: The cut-off value for Fentanyl was laboratory developed and its performance characteristics confirmed by the [facility] laboratory thru method comparison with reference laboratory and medication chart review. The laboratory is regulated under CLIA as qualified to perform high-complexity testing. Fentanyl is used for clinical purposes in conjunction with other laboratory tests. Ordering Provider: SCOTTIE BULLOCK Report Released Date/Time: Sep 26, 2024 09:24 AM Reporting Lab: [facility] [address] [id number] Performing Lab: [place] [id number] [id number] ETHANOL Negative mg/dL 0-20 AMPHET/METHAMPHE TAMINE Negative ng/mL COCAINE METABOLITES Negative ng/mL BENZODIAZEPINES (STL) Negative ng/mL CANNABINOIDS Negative ng/mL METHADONE Negative ng/mL OPIATES POSITIVE ng/mL CREATININE URINE/OTHERS 115.1 mg/dL 63-166 OXYCODONE (GEMBC-XBF-VS) Negative ng/mL BUPRENORPHINE (STL-PB-MA) Negative ng/mL FENTANYL (STL-PB) Negative ng/mL Sep 27, 2024 03:13 PM [facility] PROST. SPECIFIC AG.(PB-STL) Specimen Type: SERUM Comment: The listed sex of this patient may not be a typical indication for this test. Therefore, reference ranges or interpretive criteria listed may not be valid. Clinical correlation suggested. Ordering Provider: OSMAN MCMULLEN Report Released Date/Time: Sep 27, 2024 02:58 PM Reporting Lab: [facility] [address] [place] [address] Performing Lab: [facility] [address] [place] [address] PROST. SPECIFIC AG.(PB-STL) 0.118 ng/mL 0-4 Vital Signs: All taken on the encounter date This section contains inpatient and outpatient Vital Signs collected on the date of the Encounter. Date/Time Temperature Pulse Blood Pressure Respiratory Rate SP02 Pain Height Weight Body Mass Index Source Sep 27, 2024 02:23 PM 97.9 85 114/74 18 100 0 79 262.7 30 [facility] Social History: Smoking Status (Most current) and Tobacco Use (All prior to encounter date) This section includes the most current, and the historical, smoking and tobacco- related health factors from the [place] facility where the Encounter took place. Current Smoking Status This section includes the most current smoking, or tobacco-related health factor, from the [place] facility where the Encounter took place. Date/Time Current Smoking Status Comment Facil ity May 26, 2021 04:12 PM ORYX ADMIT TOBACCO SCREEN NO [facility] Encounter Notes: All associated encounter notes This section contains the clinical notes associated to the Encounter. Date/Time Encounter Note(s) Provider Source Sep 27, 2024 02:36 PM UROLOGY NOTE: LOCAL TITLE: UROLOGY NOTE STANDARD TITLE: UROLOGY NOTE DATE OF NOTE: SEP 27, 2024@14:36 ENTRY DATE: SEP 27, 2024@14:37:04 AUTHOR: OSMAN MCMULLEN EXP COSIGNER: REBECCA HORTA URGENCY: STATUS: COMPLETED UROLOGY NOTE Has ADDENDA CHIEF COMPLAINT, HPI, EXAM & DATA CC: it help desk manager HPI: 79 yo M with history of Int risk prostate ca (cT1c, PSA 7.7, GS 4+3 08/02 cores) DECIPHER 0.42 Radiation therapy to prostate at 70 Gy in 28 fx, completed 11/17/2023 Radiation at [facility] They are no longer following the patient Get looks to be 0.3 Did well with treatments Had been on T replacement before treatment, intersted in resuming, his doctor of audiology here wanted input from Takes flomax for well controlled LUTS No erections, not very bothered ROS/PMH Per HPI Remainder of PMH listed below and reviewed? Yes TARGETED PHYSICAL EXAM: Gen: NAD HEENT: NC/AT Resp: NLB Abd: s/nt/nd Neuro: alert and oriented Skin: warm and dry CREATININE:CREATININE 1.03 mg/dL 06/21/2024 10:40 PSA: PROST. 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 PSA today Regarding testosterone replacement, there is a lack of high quality evidence to guide decision for TRT in men with treated localized it help desk manager. In aggregate, the existing evidence suggests there is not an increased risk of recurrence/treatment failure in men with treated localized prostate cancer on TRT. The relevant AUA guideline is below. I think he is a candidate to resume TRT. FOLLOW-UP: 6 mo w PSA (MORE INFORMATION) -- 18. Patients with testosterone deficiency and a history of prostate cancer should be informed that there is inadequate evidence to quantify the risk- benefit ratio of testosterone therapy. (Expert Opinion) * LABS------ PSA Trend: PROST. SPECIFIC AG.(PB-STL) 0.323 ng/mL 02/28/2024 13:06 PROST. SPECIFIC AG.(PB-STL) 7.741 H* ng/mL 12/21/2022 10:20 PROST. SPECIFIC AG.(PB-STL) 6.493 H* ng/mL 06/22/2022 11:51 PROST. SPECIFIC AG.(PB-STL) 6.397 H* ng/mL 01/17/2022 09:37 PROST. SPECIFIC AG.(PB-STL) 6.469 H* ng/mL 12/08/2021 11:07 PROST. SPECIFIC AG.(PB-STL) 5.468 H* ng/mL 09/06/2021 12:19 PROST. SPECIFIC AG.(PB-STL) 5.652 H* ng/mL 04/22/2021 08:00 PROST. SPECIFIC AG.(PB-STL) 5.947 H* ng/mL 02/03/2021 09:07 PROST. SPECIFIC AG.(PB-STL) 4.830 H* ng/mL 09/09/2020 09:59 PROST. SPECIFIC AG.(PB-STL) 4.466 H* ng/mL 04/09/2020 13:17 BMP: SODIUM 139 mEq/L 06/21/2024 10:40 POTASSIUM 4.6 mEq/L 06/21/2024 10:40 CHLORIDE 106 mEq/L 06/21/2024 10:40 UREA NITROGEN 15.3 mg/dL 06/21/2024 10:40 CREATININE 1.03 mg/dL 06/21/2024 10:40 CALCIUM 9.7 mg/dL 06/21/2024 10:40 CARBON DIOXIDE 24 mEq/L 06/21/2024 10:40 GLUCOSE 244 H mg/dL 06/21/2024 10:40 EGFR (CKD-EPI 2020) 74.8 06/21/2024 10:40 CBC: WBC 7.7 10*3/uL 06/21/2024 10:40 RBC 4.45 10*6/uL 06/21/2024 10:40 HGB 13.7 g/dL 06/21/2024 10:40 HCT 40.7 % 06/21/2024 10:40 MCV 91.5 fL 06/21/2024 10:40 MCH 30.8 pg 06/21/2024 10:40 MCHC 33.7 g/dL 06/21/2024 10:40 RDW 13.5 % 06/21/2024 10:40 PLT 138 L 10*3/uL 06/21/2024 10:40 MPV 11.0 fL 06/21/2024 10:40 NEUTROPHILS, AUTO % 74 % 06/21/2024 10:40 LYMPHOCYTES, AUTO % 16 % 06/21/2024 10:40 MONOCYTES, AUTO % 4 % 06/21/2024 10:40 EOSINOPHILS, AUTO % 5 % 06/21/2024 10:40 BASOPHILS, AUTO % 0 % 06/21/2024 10:40 NEUTROPHILS, ABSOLUTE 5.71 10*3/uL 06/21/2024 10:40 LYMPHOCYTES, ABSOLUTE 1.24 10*3/uL 06/21/2024 10:40 MONOCYTES, ABSOLUTE 0.31 10*3/uL 06/21/2024 10:40 EOSINOPHILS, ABSOLUTE 0.39 10*3/uL 06/21/2024 10:40 BASOPHILS, ABSOLUTE 0.02 10*3/uL 06/21/2024 10:[address] FRACTION 4.9 % 06/21/2024 10:40 UA: URINE COLOR Light-Yellow 06/21/2024 10:40 APPEARANCE Clear 06/21/2024 10:40 U.PH 6.0 06/21/2024 10:40 U.BILIRUBIN Negative mg/dL 06/21/2024 10:40 U.NITRITE Negative mg/dL 06/21/2024 10:40 PAST MEDICAL, SOCIAL, FAMILY HX AND ROS 1) Idiopathic peripheral autonomic neuropathy 2) 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 19) Prostate Cancer (SCT [id number]) MEDICATIONS: Active Outpatient Medications (including Supplies): Active Outpatient Medications Status 1) CAMPHOR 0.5/MENTHOL 0.5% LOTION APPLY LIGHTLY TO ACTIVE AFFECTED AREA(S) THREE TIMES A DAY FOR ITCHING - (EXTERNAL USE ONLY) APPLY TO ARMS 2) CETIRIZINE HCL 10MG TAB TAKE ONE TABLET BY MOUTH ACTIVE TWICE A DAY FOR ALLERGY SYMPTOMS 3) CHOLECALCIF 50MCG (D3-2,000UNIT) TAB TAKE TWO TABLETS ACTIVE BY MOUTH ONCE A DAY FOR VITAMIN D DEFICIENCY 4) CLOBETASOL PROPIONATE 0.05% OINT APPLY LIGHTLY TO ACTIVE AFFECTED AREA(S) TWICE A DAY FOR ECZEMA (EXTERNAL USE ONLY) 5) CLOBETASOL PROPIONATE 0.05% TOP SOLN APPLY LIGHTLY TO ACTIVE AFFECTED AREA(S) ONCE A DAY NEEDED SCALP ITCHING (EXTERNAL USE ONLY) 6) CYANOCOBALAMIN 1000MCG TAB TAKE ONE TABLET BY MOUTH ACTIVE ONCE A DAY FOR B12 SUPPLEMENTATION 7) DICLOFENAC NA [...] A DAY DO NOT ABRUPTLY DISCONTINUE MEDICATION. 9) HYDROCODONE 7.5/ACETAMINOPHEN 325MG TAB TAKE 1 TABLET ACTIVE BY MOUTH TWICE DAILY NEEDED CAUTION: DO NOT EXCEED 4000MG PER DAY ACETAMINOPHEN (APAP) FROM ALL MEDS. 10) KETOCONAZOLE 2% SHAMPOO USE SHAMPOO TO AFFECTED ACTIVE AREA(S) ONCE A DAY NEEDED FOR DANDRUFF *LET SIT FOR 3-5 MINUTES ON SCALP, THEN RINSE* (EXTERNAL USE ONLY) (SHAKE WELL) 11) LIDOCAINE 5% PATCH APPLY 1-3 PATCHES TO SKIN SITE ACTIVE ONCE A DAY NEEDED FOR PAIN APPLY PATCH AND PRESS FIRMLY FOR 10-15 SECONDS. KEEP ON FOR 12 HOURS THEN REMOVE PATCH FOR 12 HOURS. 12) METFORMIN HCL 1000MG TAB TAKE ONE TABLET BY MOUTH ACTIVE TWICE A DAY WITH MEALS FOR BLOOD SUGAR CONTROL. TAKE WITH FOOD. AVOID ALCOHOL. DISCONTINUE BEFORE GETTING XRAY DYE. 13) MUPIROCIN 2% OINT APPLY LIBERALLY TO AFFECTED AREA(S) ACTIVE (S) TWICE A DAY FOR BACTERIAL INFECTION EXTERNAL USE ONLY. 14) PETROLATUM (WHITE) OINT APPLY LIGHTLY TO AFFECTED ACTIVE AREA(S) TWICE A DAY FOR DRY SKIN 15) POLYETHYLENE GLYCOL 3350 ORAL PWDR MIX AND DRINK 1 ACTIVE CAPFUL BY MOUTH ONCE A DAY TO PREVENT CONSTIPATION. (MEASURE WITH CAP AND MIX IN 8 OZ OF WATER) 16) PRAVASTATIN NA 40MG TAB TAKE ONE-HALF TABLET BY MOUTH ACTIVE EVERY EVENING FOR HIGH CHOLESTEROL 17) SALONPAS PAIN RELIEF PATCH APPLY 1 PATCH TO SKIN SITE ACTIVE THREE TIMES A DAY NEEDED (EXTERNAL USE ONLY) 18) SEMAGLUTIDE 1MG/0.75ML INJ PEN 3ML INJECT 1MG UNDER ACTIVE THE SKIN EVERY WEEK 19) SODIUM FLUORIDE 1.1% (FL 0.5%) DENT GEL APPLY ACTIVE SPARINGLY BY MOUTH TWICE A DAY FOR DENTAL CARE - AFTER BRUSHING TEETH; APPLY SPARINGLY; DO NOT EAT, DRINK OR RINSE FOR 30 MINUTES AFTER APPLICATION 20) TAMSULOSIN HCL 0.4MG CAP TAKE ONE CAPSULE BY MOUTH ACTIVE EVERY EVENING APPROXIMATELY 30 MINUTES AFTER THE SAME MEAL EACH DAY (FOR PROSTATE) 21) TIZANIDINE HCL 4MG TAB TAKE ONE-HALF TABLET BY MOUTH ACTIVE TWICE DAILY NEEDED FOR SPASTICITY Active Non-VA Medications Status 1) Non-VA CIPROFLOXACIN 0.3/DEXAM 0.1% OTIC SUSP 4 DROPS ACTIVE TO AFFECTED EAR(S) TWICE A DAY 22 Total Medications Allergies: SIMVASTATIN, ATORVASTATIN, ROSUVASTATIN, PRAVASTATIN /fransisco/ Osman Mcmullen MD Resident, Urology Signed: 09/27/2024 15:13 /fransisco/ REBECCA HORTA MD Staff Physician, Urology Cosigned: 10/03/2024 12:05 09/27/2024 ADDENDUM STATUS: COMPLETED PSA 0.118 ng/mL 0 - 4 /fransisco/ Osman Mcmullen MD Resident, Urology Signed: 09/27/2024 16:50 /fransisco/ REBECCA HORTA MD Staff Physician, Urology Cosigned: 10/03/2024 12:05 OSMAN MCMULLEN [facility]
--- OUTSIDE RECORDS SUMMARY | 2025-01-27 16:19 | XMS_ITS | Encounter Summary ---
Author Name [facility] Organization [facility] Address [address] [place] [address] Care Team Providers Care Wire Mill Rover Name Role Phone SERGEI NORWOOD Primary Care [...] PART B May 13, 2014 PART B [id number] 40A NERIMatty FATIMAH PATIENT MEDICARE (WNR) MEDICARE (M) PART B May 13, 2014 PART B [id number] Matty NERI FATIMAH PATIENT MEDICARE (WNR) MEDICARE (M) PART A Aug 13, 2011 PART A [id number] 40A NERIMatty FATIMAH PATIENT MEDICARE (WNR) MEDICARE (M) PART A Aug 13, 2011 PART A [id number] Matty NERIIEL PATIENT Selected Encounter This section includes the information on record at MD for the Encounter. Date/Time Encounter Type Encounter Description Reason Provider Source Jan 15, 2025 03:40 PM OFFICE O/P EST MOD 30 MIN ENDOCRINOLOGY ICD-10-CM E29.1 Testicular hypofunction ALFREDITO CHEN Selam Encounter Template Text not used by MD Assessments - Encounter Diagnoses This section includes the primary and secondary diagnoses documented for the Encounter. Date/Time Primary/Secondary Diagnosis Diagnosis Name Provider Source Jan 15, 2025 05:47 PM PRIMARY Testicular hypofunction ALFREDITO CHEN [facility] Jan 15, 2025 05:47 PM SECONDARY Obesity, unspecified ALFREDITO CHEN [facility] Jan 15, 2025 05:47 PM SECONDARY Type 2 diabetes mellitus with diabetic neuropathy, unsp JOELALFREDITO [facility] Plan of Treatment: Future Appointments (+ 6 months) and Future Tests (+/- 45 days) The Plan of Treatment section includes future care activities for the patient [facility] This section includes future appointments and future orders which are active, pending or scheduled. Future Appointments This section includes appointments that were scheduled to occur 6 months from the date of the Encounter, up to a maximum of 20 appointments. The data comes from all MD treatment facilities. Appointment Date/Time Appointment Type Appointme nt Facility Name Jan 28, 2025 02:00 PM AMBULATORY - SURGERY [facility] Feb 05, 2025 03:00 PM AMBULATORY - MEDICINE [facility] Feb 12, 2025 01:45 PM AMBULATORY - MEDICINE [facility] Feb 13, 2025 01:00 PM AMBULATORY - SURGERY [facility] Mar 05, 2025 11:15 AM AMBULATORY - RE[facility]AB [facility]ICIN [facility] March 26, 2025 11:20 AM AMBUL[facility]ORY - SUR[facility]ERY [facility] Apr 18, 2025 10:45 AM AMBULATORY - MEDICINE [facility] May 07, 2025 02:00 PM AMBULATORY - RE[facility]AB MED[facility] Active, Pending, [...] of theEncounter. The data comes from all MD treatment facilities. Test Date/Time Test Type Test Details Facility Name Jan 27, 2025 09:01 AM Consult Order CONTACT GILBERT MAST Cons Sales Project Manager's Choice [facility] Feb 24, 2025 12:00 AM Laboratory - Chemi stry Order PROST. SPECIFIC AG.(PB-STL) GOLD/RED SST SERUM SP [facility] Vital Signs: All taken on the encounter date This section contains inpatient and outpatient Vital Signs collected on the date of the Encounter. Date/Time Temperature Pulse Blood Pressure Respiratory Rate SP02 Pain Height Weight Body Mass Index Source Jan 15, 2025 03:38 PM 97.9 81 104/62 20 97 0 79 262.9 30 [facility] Social History: Smoking Status (Most current) and Tobacco Use (All prior to encounter date) This section includes the most current, and the historical, smoking and tobacco- related health factors from the MD facility where the Encounter took place. Current Smoking Status This section includes the most current smoking, or tobacco-related health factor, from the MD facility where the Encounter took place. Date/Time Current Smoking Status Comment Facil ity May 26, 2021 04:12 PM ORYX ADMIT TOBACCO SCREEN NO [facility] Encounter Notes: All associated encounter notes This section contains the clinical notes associated to the Encounter. Date/Time Encounter Note(s) Provider Source Jan 15, 2025 04:01 PM ENDOCRINOLOGY OUTP ATIENT NOTE: LOCAL TITLE: ENDOCRINOLOGY OUTPATIENT FOLLOW UP [facility] STANDARD TITLE: ENDOCRINOLOGY OUTPATIENT NOTE DATE OF NOTE: JAN 15, 2025@16:01 ENTRY DATE: JAN 15, 2025@16:01:11 AUTHOR: ALFREDITO CHEN EXP COSIGNER: URGENCY: STATUS: COMPLETED ID: HUYEN NERI is a 79yo MALE who returns for obesity, T2DM, and hypogonadism management History of present illness: No acute issues today. His light-headedness has improved since stopping statin and tizanadine. He is working with pain management for pain relief and opiates. Feeling better since restarting testosterone. Denies LUTS. 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 19) Prostate Cancer ([facility] [phone]) Medications: Active Outpatient Medications (excluding Supplies): Issue Date Status Last Fill Active Outpatient Medications Refills Expiration 1) CAMPHOR 0.5/MENTHOL 0.5% LOTION Qty: 225 for ACTIVE Issue: 09/16/24 30 days Sig: APPLY LIGHTLY TO AFFECTED Refills: 11 Last : 09/16/24 AREA(S) THREE TIMES A DAY - (EXTERNAL USE Expr : 09/17/25 ONLY) APPLY TO ARMS Indication: FOR ITCHING 2) CETIRIZINE HCL 10MG TAB Qty: 180 for 90 days ACTIVE Issue: 09/16/24 Sig: TAKE ONE TABLET BY MOUTH TWICE A DAY Refills: 2 Last : 09/16/24 Indication: FOR ALLERGY SYMPTOMS Expr : 09/17/25 3) CHOLECALCIF 50MCG (D3-2,000UNIT) TAB Qty: ACTIVE Issue: 02/20/24 200 for 90 days Sig: TAKE TWO TABLETS BY Refills: 1 Last : 01/16/25 MOUTH ONCE A DAY Expr : 02/20/25 Indication: FOR VITAMIN D DEFICIENCY 4) CLOBETASOL PROPIONATE 0.05% OINT Qty: 60 for ACTIVE Issue: 09/16/24 30 days Sig: APPLY LIGHTLY TO AFFECTED Refills: 0 Last : 10/23/24 AREA(S) TWICE A DAY (EXTERNAL USE ONLY) Expr : 09/17/25 Indication: FOR ECZEMA 5) CLOBETASOL PROPIONATE 0.05% TOP SOLN Qty: 50 ACTIVE Issue: 03/29/24 for 30 days Sig: APPLY LIGHTLY TO AFFECTED Refills: 7 Last : 12/28/24 AREA(S) ONCE A DAY NEEDED (EXTERNAL USE Expr : 03/30/25 ONLY) Indication: SCALP ITCHING 6) DICLOFENAC NA 1% TOP GEL Qty: 200 for 30 ACTIVE Issue: 04/10/24 days Sig: APPLY 4 GM TO AFFECTED AREA(S) Refills: 9 Last : 12/28/24 FOUR TIMES A DAY NEEDED FOR Expr : 04/11/25 PAIN/INFLAMMATION; NOT MORE THAN 16 GRAMS DAILY TO ANY LOWER EXTREMITY JOINT. NOT MORE THAN 8 GRAMS DAILY TO ANY UPPER EXTREMITY JOINT. MAX 32GM/DAY OVER ALL JOINTS. (MEASURE DOSE WITH RULER ATTACHED INSIDE BOX) OVER HANDS AND SHOULDERS NEEDED FOR PAIN 7) DULOXETINE HCL 60MG EC CAP Qty: 90 for 90 ACTIVE Issue: 09/26/24 days Sig: TAKE ONE CAPSULE BY MOUTH ONCE A Refills: 3 Last : 10/04/24 DAY DO NOT ABRUPTLY DISCONTINUE MEDICATION. Expr : 09/27/25 8) HYDROCODONE 7.5/ACETAMINOPHEN 325MG TAB Qty: ACTIVE Issue: 01/14/25 70 for 28 days Sig: TAKE 1 TABLET BY MOUTH Refills: 0 Last : 01/14/25 THREE TIMES A DAY NEEDED CAUTION: DO NOT Expr : 02/13/25 EXCEED 4000MG PER DAY ACETAMINOPHEN (APAP) FROM ALL MEDS. Indication: FOR PAIN 9) KETOCONAZOLE 2% SHAMPOO Qty: 120 for 30 days ACTIVE Issue: 03/29/24 Sig: USE SHAMPOO TO AFFECTED AREA(S) ONCE A Refills: 6 Last : 12/28/24 DAY NEEDED *LET SIT FOR 3-5 MINUTES ON Expr : 03/30/25 SCALP, THEN RINSE* (EXTERNAL USE ONLY) (SHAKE WELL) Indication: FOR DANDRUFF 10) LIDOCAINE 5% PATCH Qty: 90 for 30 days Sig: ACTIVE Issue: 03/06/24 APPLY 1-3 PATCHES TO SKIN SITE ONCE A DAY Refills: 9 Last : 09/26/24 NEEDED APPLY PATCH AND PRESS FIRMLY FOR Expr : 03/07/25 10-15 SECONDS. KEEP ON FOR 12 HOURS THEN REMOVE PATCH FOR 12 HOURS. Indication: FOR PAIN 11) METFORMIN HCL 1000MG TAB Qty: 180 for 90 ACTIVE Issue: 07/16/24 days Sig: TAKE ONE TABLET BY MOUTH TWICE A Refills: 1 Last : 01/02/25 DAY WITH MEALS FOR BLOOD SUGAR CONTROL. TAKE Expr : 07/17/25 WITH FOOD. AVOID ALCOHOL. DISCONTINUE BEFORE GETTING XRAY DYE. 12) MUPIROCIN 2% OINT Qty: 22 for 90 days Sig: ACTIVE (S) Issue: 08/14/24 APPLY LIBERALLY TO AFFECTED AREA(S) TWICE A Refills: 1 Last : 02/02/25 DAY EXTERNAL USE ONLY. Expr : 08/15/25 Indication: FOR BACTERIAL INFECTION 13) PETROLATUM (WHITE) OINT Qty: 390 for 30 days ACTIVE Issue: 03/29/24 Sig: APPLY LIGHTLY TO AFFECTED AREA(S) TWICE Refills: 11 Last : 03/29/24 A DAY FOR Expr : 03/30/25 Indication: DRY SKIN 14) POLYETHYLENE GLYCOL 3350 ORAL PWDR Qty: 510 ACTIVE Issue: 09/24/24 for 30 days Sig: MIX AND DRINK 1 CAPFUL BY Refills: 2 Last : 01/12/25 MOUTH ONCE A DAY TO PREVENT CONSTIPATION. Expr : 09/25/25 (MEASURE WITH CAP AND MIX IN 8 OZ OF WATER) 15) PRAVASTATIN NA 40MG TAB Qty: 45 for 90 days ACTIVE Issue: 04/03/24 Sig: TAKE ONE-HALF TABLET BY MOUTH EVERY Refills: 0 Last : 01/01/25 EVENING Expr : 04/04/25 Indication: FOR HIGH CHOLESTEROL 16) PREGABALIN 100MG ORAL CAP Qty: 60 for 30 ACTIVE Issue: 10/17/24 days Sig: TAKE ONE CAPSULE BY MOUTH TWICE A Refills: 0 Last : 12/12/24 DAY *MAY CAUSE DROWSINESS* Expr : 04/19/25 Indication: FOR NERVE PAIN 17) SALONPAS PAIN RELIEF PATCH Qty: 120 for 30 ACTIVE Issue: 09/10/24 days Sig: APPLY 1 PATCH TO SKIN SITE THREE Refills: 2 Last : 07/24/24 TIMES A DAY NEEDED (EXTERNAL USE ONLY) Expr : 07/24/25 Indication: FOR PAIN 18) SEMAGLUTIDE 1MG/0.75ML INJ PEN 3ML Qty: 3 ACTIVE Issue: 12/16/24 for 84 days Sig: INJECT 1MG UNDER THE SKIN Refills: 3 Last : 12/16/24 EVERY WEEK Expr : 12/17/25 Indication: FOR DIABETES 19) SODIUM FLUORIDE 1.1% (FL 0.5%) DENT GEL Qty: ACTIVE Issue: 08/08/24 60 for 30 days Sig: APPLY SPARINGLY BY MOUTH Refills: 3 Last : 10/23/24 TWICE A DAY - AFTER BRUSHING TEETH; APPLY Expr : 08/09/25 SPARINGLY; DO NOT EAT, DRINK OR RINSE FOR 30 MINUTES AFTER APPLICATION Indication: FOR DENTAL CARE 20) TAMSULOSIN HCL 0.4MG CAP Qty: 90 for 90 days ACTIVE Issue: 05/15/24 Sig: TAKE ONE CAPSULE BY MOUTH EVERY EVENING Refills: 1 Last : 12/16/24 APPROXIMATELY 30 MINUTES AFTER THE SAME MEAL Expr : 05/16/25 EACH DAY (FOR PROSTATE) 21) TESTOSTERONE 1.62% 20.25MG/PUMP TOP GEL Qty: ACTIVE Issue: 10/23/24 2 for 40 days Sig: APPLY 3 PUMPS (60.75MG) Refills: 3 Last : 11/29/24 TO AFFECTED AREA(S) ONCE A DAY APPLY TO Expr : 04/25/25 CLEAN DRY SKIN OF UPPER ARMS OR UPPER SHOULDER ONLY Indication: FOR LOW TESTOSTERONE Start Date Active Non-VA Medications Status Stop Date 1) Non-VA CIPROFLOXACIN 0.3/DEXAM 0.1% OTIC ACTIVE SUSP Si DROPS TO AFFECTED EAR(S) TWICE A DAY 22 Total Medications Physical Exam: Vital Signs: Temperature: 97.9 F [36.6 C] (01/15/2025 15:38) Blood Pressure: 104/62 (01/15/2025 15:38) Pulse: 81 (01/15/2025 15:38) Respirations: 20 (01/15/2025 15:38) Patient Weight History - Last Four 1. 262.9 lbs. / 119.3 kg. on JAN 15, 2025@15:38:28 2. 266.6 lbs. / 120.9 kg. on NOV 25, 2024@10:55:24 3. 262.7 lbs. / 119.2 kg. on SEP 27, 2024@14:23:39 4. 262.8 lbs. / 119.2 kg. on AUG 07, 2024@13:30:31 CON: Well developed, well nourished, no acute [...] 74.8 06/21/2024 10:40 PSA =PROST. SPECIFIC AG.(PB-STL) 0.145 ng/mL 12/11/2024 11:26 HGA1C 5.9 % 12/11/2024 11:26 HGA1C 6.4 H % 06/21/2024 10:40 HGA1C 6.6 H % 02/28/2024 13:06 HGA1C 7.4 H % 11/28/2023 09:22 HGA1C 6.8 H % 05/24/2023 11:09 No MICRAL/CREAT RATIO (STL) data found Lipid Panel: TRIGLYCERIDE 157 H mg/dL 05/17/2024 10:41 CHOLESTEROL 131 mg/dL 05/17/2024 10:41 HDL(New) 36 L mg/dL 05/17/2024 10:41 CALCULATED LDL 64 mg/dL 05/17/2024 10:41 Last PSA remains < 0.2 Assessment and plan: HUYEN NERI is a 79yo here for f/u of obesity, T2DM, hypogonadism #hypogonadism -Labs suggestive of primary hypogonadism -stopped Androgel in 2022 due to prostate carcinoma -s/p radiation treatment - at urology 2023, cleared to trial TRT with close monitoring PSA For now, continue androgel 3 pumps daily. monitor CBC and PSA #T2DM #Obesity - continue metformin 1000 PO BID - continue Ozempic 1 mg weekly - A1c excellent on above, < 7%, at goal - no clinical neuropathy, eye disease, or nephropathy - last eye exam 10/2024 - last microalbumin Nov 2024, wnl - podiatry scheduled next week January 2025 - not a smoker RTC 6 months /es/ Alfredito Chen MD,PhD Staff Physician, Endocrinology Signed: 01/15/2025 17:47 ALFREDITO CHEN [facility]
--- OUTSIDE RECORDS SUMMARY | 2025-01-27 16:19 | XMS_ITS | Encounter Summary ---
Author Name [facility] ([place]) Address [address] [place] [address] Care Team Providers Care Maintenance And Operations Supervisor Name Role Phone SERGEI NORWOOD Primary [...] PART B May 13, 2014 PART B [id number] Matty NERI FATIMAH PATIENT MEDICARE (WNR) MEDICARE (M) PART B May 13, 2014 PART B [id number] Matyt NERI FATIMAH PATIENT MEDICARE (WNR) MEDICARE (M) PART A Aug 13, 2011 PART A [id number] Matty NERI FATIMAH PATIENT MEDICARE (WNR) MEDICARE (M) PART A Aug 13, 2011 PART A [id number] Matty NERIIEL PATIENT Selected Encounter This section includes the information on record at [place] for the Encounter. Date/Time Encounter Type Encounter Description Reason Pro vider Source Nov 29, 2024 10:14 AM Outpatient Encounter GENERAL INTERNAL MEDICINE IHE Encounter Template Text not used by [facility] Plan of Treatment: Future Appointments (+ 6 months) and Future Tests (+/- 45 days) The Plan of Treatment section includes future care activities for the patient [facility] [place] [facility] This section includes future appointments and future orders which are active, pending or scheduled. Future Appointments This section includes appointments that were scheduled to occur 6 months from the date of the Encounter, up to a maximum of 20 appointments. The data comes from all [facility]. Appointment Date/Time Appointment Type Appointme nt Facility Name Jan 15, 2025 03:40 PM AMBULATORY - MEDICINE [facility] Jan 28, 2025 02:00 PM AMBULATORY - SURGERY [facility] Feb 05, 2025 03:00 PM AMBULATORY - MEDICINE [facility] Feb 12, 2025 01:45 PM AMBULATORY - MEDICINE [facility] Feb 13, 2025 01:00 PM AMBULATORY - SURGERY [facility] Mar 05, 2025 11:15 AM AMBULATORY - REHAB MEDICIN [facility] March 26, 2025 11:20 AM AMBULATORY - SURGERY [facility] Apr 18, 2025 10:45 AM AMBULATORY - MEDICINE [facility] May 07, 2025 02:00 PM AMBULATORY - REHAB [facility] Active, Pending, and Scheduled Orders This section includes a listing of several types of active, pending, and scheduled orders, including clinic medications orders, diagnostic test orders, procedure orders and consult orders; where the start date of the order is 45 days before the date of the Encounter or 45 days after the date of theEncounter. The data comes from all [facility]. Test Date/Time Test Type Test Details Facility Name Oct 17, 2024 12:00 AM Laboratory - Chemi stry Order LIPID PANEL (STL) GREEN LI/HEP BLD/PLAS PLASMA SP [facility] Lab Results: +/- 30 days of the encounter This section includes the Chemistry and Hematology Lab Results on record with [place] for the patient. Radiology Reports and Pathology Reports are provided separately, in subsequent sections. Lab Results This section contains the Chemistry/Hematology Results that were resulted 30 days before or 30 daysafter the date of the Encounter. Date/Time Source Result Type Result - Unit Interpretation Reference Range Comment Dec 11, 2024 11:38 AM [facility] MICRAL/CREAT PROFILE (STL) Specimen Type: URINE No comment entered. Ordering Provider: SERGEI NORWOOD Report Released Date/Time: Nov 04, 2024 02:10 PM Reporting Lab: [address] [address] Performing Lab: [address] [address] URINE ALBUMIN (PB-STL) 20.2 mg/L uACR (STL) 11 mg/g 0-29 CREATININE URINE/OTHERS 183.4 mg/dL H 63-166 Dec 11, 2024 11:26 AM [facility] PROST. SPECIFIC AG.(PB-STL) Specimen Type: SERUM Comment: The listed sex of this patient may not be a typical indication for this test. Therefore, reference ranges or interpretive criteria listed may not be valid. Clinical correlation suggested. Ordering Provider: SERGEI NORWOOD Report Released Date/Time: Nov 25, 2024 11:58 AM Reporting Lab: [address] [address] Performing Lab: [address] [address] PROST. SPECIFIC AG.(PB-STL) 0.145 ng/mL 0-4 Dec 11, 2024 11:26 AM [facility] HGA1C Specimen Type: BLOOD No comment entered. Ordering Provider: SERGEI NORWOOD Report Released Date/Time: Nov 25, 2024 12:09 PM Reporting Lab: [address] [address] Performing Lab: [address] [address] HGA1C 5.9 4.0-6.0 Dec 11, 2024 11:26 AM [facility] CBC Specimen Type: BLOOD No comment entered. Ordering Provider: SERGEI NORWOOD Report Released Date/Time: Nov 25, 2024 11:58 AM Reporting Lab: [facility] [address] [address] Performing Lab: [facility] [address] [phone] WBC 9.4 10*3/uL 3.6-11.2 RBC 4.55 10*6/uL [...] 10*3/uL 0.00-0.[address] FRACTION 5.8 1.0-7.0 Social History: Smoking Status (Most current) and Tobacco Use (All prior to encounter date) This section includes the most current, and the historical, smoking and tobacco- related health factors from the [place] facility where the Encounter took place. Current Smoking Status This section includes the most current smoking, or tobacco-related health factor, from the [place] facility where the Encounter took place. Date/Time Current Smoking Status Comment Amol alston May 26, 2021 04:12 PM ORYX ADMIT TOBACCO SCREEN NO [facility] Encounter Notes: All associated encounter notes This section contains the clinical notes associated to the Encounter. Date/Time Encounter Note(s) Provider Source Nov 29, 2024 10:14 AM ADMINISTRATIVE NOT E: LOCAL TITLE: ADMINISTRATIVE COMMUNITY CARE REQUEST STL STANDARD TITLE: ADMINISTRATIVE NOTE DATE OF NOTE: NOV 29, 2024@10:14 ENTRY DATE: NOV 29, 2024@10:15:07 AUTHOR: CHANDAN ARMENDARIZ EXP COSIGNER: URGENCY: STATUS: COMPLETED Follow-up call from the vet indicating that he does not want the gold crown option. The investigative writer informed the vet that he can contact [facility] to notify them about this decision. The investigative writer then transferred the call to [facility] to facilitate the change. /fransisco/ CHANDAN ARMENDARIZ ADVANCE TRANSMISSION REBUILDER Signed: 11/29/2024 10:20 CHANDAN ARMENDARIZ [facility]
--- OUTSIDE RECORDS SUMMARY | 2025-01-27 16:19 | XMS_ITS | Encounter Summary ---
Author Organization [facility] Address 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: [id number] IMAGING SERVICES Ordering Prov: JUAN RAMOS Accession Number: [id number] Interpretation This procedure was performed at the request of the orthopedic physician. Please see the orthopedic physician s report for details, which can be found in the patient s medical record. Dictated by: RADIOLOGY, DEPARTMENT O Electronically signed by: RADIOLOGY, DEPARTMENT 08/12/2008 18:53 Transcribed: 08/12/2008 18:48 AMK Procedure Note Radiology, Radiologist - 08/12/[address] [address] Admit Date: 08/04/2008 TORRES DUANE Sex: M Admit Prov: JUAN RAMOS Date:1945 Primary Care Prov: PCP, UNKNOWN CMRN: [id number] Room: [facility]: [id number] IMAGING SERVICES Ordering Prov: JUAN RAMOS Interpretation [...] PM CDT Narrative 08/12/2008 6:54 PM CDT [address] [address] Admit Date: 08/04/2008 DARON DUANE Sex: M Admit Prov: JUAN RAMOS Leesa Date: 1945 Primary Care Prov: PCP, UNKNOWN CMRN: [id number] Room: [facility]: [id number] IMAGING SERVICES Ordering Prov: JUAN RAMOS Accession Number: [id number] Interpretation This procedure was performed at the request of the orthopedic physician. Please see the orthopedic physician s report for details, which can be found in the patient s medical record. Dictated by: RADIOLOGY, DEPARTMENT O Electronically signed by: RADIOLOGY, DEPARTMENT 08/12/2008 18:53 Transcribed: 08/12/2008 18:48 AMK Procedure Note Radiology, Radiologist - 08/12/2008 [facility] [address] [place], [place] [address] Admit Date: 08/04/2008 DARON DUANE Sex: M Admit Prov: RACHELJUAN Date:1945 Primary Care Prov: PCP, UNKNOWN CMRN: [id number] [id number] [facility] Ordering Prov: JUAN RAMOS Interpretation [...] on filedocumented in this encounter Care Teams Curb Worker Relationship Specialty Start Date End Date Juan Ha MD PCP - General Internal Medicine 08/12/11 documented as of this encounter
--- OUTSIDE RECORDS SUMMARY | 2025-01-27 16:19 | XMS_ITS | Encounter Summary ---
Author Name [facility] [place] [facility] [place] Address [address] [place] [address] Care Team Providers Care Flat Folder Name Role Phone SERGEI NORWOOD Primary Care [...] PART B May 13, 2014 PART B [id number] 40A NERIMatty FATIMAH PATIENT MEDICARE (WNR) MEDICARE (M) PART B May 13, 2014 PART B [id number] Matty NERI FATIMAH PATIENT MEDICARE (WNR) MEDICARE (M) PART A Aug 13, 2011 PART A [id number] 40A Matty NERI FATIMAH PATIENT MEDICARE (WNR) MEDICARE (M) PART A Aug 13, 2011 PART A [id number] Matty NERIIEL PATIENT Selected Encounter This section includes the information on record at [place] for the Encounter. Date/Time Encounter Type Encounter Description Reason Provider Source Feb 29, 2024 11:30 AM OFFICE O/P EST LOW 20 MIN PODIATRY ICD-10-CM L60.3 Nail dystrophy ANGELICA VERA IH Encounter Template Text not used by [place] Assessments - Encounter Diagnoses This section includes the primary and secondary diagnoses documented for the Encounter. Date/Time Primary/Secondary Diagnosis Diagnosis Name Provider Source Feb 29, 2024 02:10 PM PRIMARY Nail dystrophy ANGELICA VERA [facility] Feb 29, 2024 02:10 PM SECONDARY Type 2 diabetes mellitus with diabetic neuropathy, unsp ANGELICA VERA [facility] Plan of Treatment: Future Appointments (+ 6 months) and Future Tests (+/- 45 days) The Plan of Treatment section includes future care activities for the patient from [facility] [place] [facility] This section includes future appointments and future orders which are active, pending or scheduled. Future Appointments This section includes appointments that were scheduled to occur 6 months from the date of the Encounter, up to a maximum of 20 appointments. The data comes from all [place] treatment facilities. Appointment Date/Time Appointment Type Appointme nt Facility Name Mar 05, 2024 07:30 AM AMBULATORY - NONE [facility] Mar 06, 2024 10:00 AM AMBULATORY - REHAB MEDICIN [facility] March 20, 2024 09:30 AM AMBULATORY - NONE [facility] March 28, 2024 10:30 AM AMBULATORY - MEDICINE [facility] March 29, 2024 11:30 AM AMBULATORY - MEDICINE [facility] Apr 29, 2024 11:00 AM AMBULATORY - REHAB MEDICIN E [facility] May 06, 2024 02:30 PM AMBULATORY - NONE [facility] Jun 03, 2024 09:00 AM AMBULATORY - MEDICINE [facility] Jun 19, 2024 02:00 PM AMBULATORY - MEDICINE [facility] Jun 28, 2024 11:00 AM AMBULATORY - NONE [facility] Jul 01, 2024 09:00 AM AMBULATORY - NONE [facility] Jul 01, 2024 10:00 AM AMBULATORY - NONE [facility] Jul 04, 2024 08:00 AM AMBULATORY - NONE Darius Marlow [facility] Jul 08, 2024 09:30 AM AMBULATORY - NONE [facility]low [facility] Jul 08, 2024 10:00 AM AMBULATORY - NONE [facility]low [facility] Jul 23, 2024 10:45 AM AMBULATORY - MEDICINE [facility] Aug 07, 2024 01:40 PM AMBULATORY - MEDICINE [facility] Aug 08, 2024 01:00 PM AMBULATORY - NONE [facility] Marlow [facility] Aug 14, 2024 03:15 PM AMBULATORY - MEDICINE [facility] Aug 20, 2024 02:00 PM AMBULATORY - SURGERY [facility] Oscar JULIETA [facility] Active, Pending, and Scheduled Orders This section includes a listing of several types of active, pending, and scheduled orders, including clinic medications orders, diagnostic test orders, procedure orders and consult orders; where the start date of the order is 45 days before the date of the Encounter or 45 days after the date of theEncounter. The data comes from all [place] treatment facilities. Test Date/Time Test Type Test Details Facility Name Jan 24, 2024 12:00 AM Laboratory - Chemi stry Order B12 GOLD/RED SST SERUM [facility] Feb 07, 2024 12:00 AM Laboratory - Chemi stry Order TESTOSTERONE, FREE PANEL RED/NO-GEL SERUM [facility] Lab Results: +/- 30 days of the encounter This section includes the Chemistry and Hematology Lab Results on record with [place] for the patient. Radiology Reports and Pathology Reports are provided separately, in subsequent sections. Lab Results This section contains the Chemistry/Hematology Results that were resulted 30 days before or 30 daysafter the date of the Encounter. Date/Time Source Result Type Result - Unit Interpretation Reference Range Comment Mar 06, 2024 10:41 AM [facility] METHADONE PANEL (STL) Specimen Type: URINE Comment: The cut-off value for this test was laboratory developed and its performance characteristics confirmed by the [facility] laboratory thru method comparison with reference laboratory and medication chart review. The laboratory is regulated under CLIA as qualified to perform high-complexity testing. This test is used for clinical purposes in conjunction with other laboratory tests. Ordering Provider: CASH WOLFE Report Released Date/Time: Mar 06, 2024 08:09 AM Reporting Lab: [address] [address] Performing Lab: [address] [address] ETHANOL Negative mg/dL 0-20 AMPHET/METHAMPHE TAMINE Negative ng/mL COCAINE METABOLITES Negative ng/mL BENZODIAZEPINES (STL) Negative ng/mL CANNABINOIDS Negative ng/mL METHADONE Negative ng/mL OPIATES >1000-POS ng/mL CREATININE URINE/OTHERS 100.9 mg/dL 63-166 OXYCODONE (YKGFK-BRR-KT) Negative ng/mL BUPRENORPHINE (STL-PB-MA) Negative FENTANYL (STL-PB) Negative ng/mL Feb 28, 2024 01:12 PM [facility] MICRAL/CREAT PROFILE (STL) Specimen Type: URINE No comment entered. Ordering Provider: ALFREDITO MALDONADO Report Released Date/Time: Jan 24, 2024 03:44 PM Reporting Lab: [address] [address] Performing Lab: [address] [address] URINE ALBUMIN (PB-STL) 6.6 mg/L uACR (STL) 7 mg/g 0-29 CREATININE URINE/OTHERS 92.8 mg/dL 63-166 Feb 28, 2024 01:06 PM [facility] PROST. SPECIFIC AG.(PB-STL) Specimen Type: SERUM Comment: The listed sex of this patient may not be a typical indication for this test. Therefore, reference ranges or interpretive criteria listed may not be valid. Clinical correlation suggested. Ordering Provider: ALFREDITO MALDONADO Report Released Date/Time: Jan 24, 2024 03:44 PM Reporting Lab: [place] [id number] [facility] [address] Performing Lab: [address] [address] PROST. SPECIFIC AG.(PB-STL) 0.323 ng/mL 0-4 Feb 28, 2024 01:06 PM [facility] HGA1C Specimen Type: BLOOD No comment entered. Ordering Provider: ALFREDITO MALDONADO Report Released Date/Time: Jan 24, 2024 03:44 PM Reporting Lab: [facility] [address] [facility] [address] Performing Lab: [facility] [facility] [address] HGA1C 6.6 H 4.0-6.0 Feb 28, 2024 01:06 PM [facility] TSH (MA-PB) Specimen Type: SERUM Comment: The listed sex of this patient may not be a typical indication for this test. Therefore, reference ranges or interpretive criteria listed may not be valid. Clinical correlation suggested. Ordering Provider: ALFREDITO MALDONADO Report Released Date/Time: Jan 24, 2024 03:44 PM Reporting Lab: [facility] [address] [facility] [address] Performing Lab: [facility] [address] [facility] [address] TSH 0.841 u[IU]/mL 0.47-5 Feb 28, 2024 01:06 PM [facility] COMPREHENSIVE METABOLIC PANEL Specimen Type: PLASMA Comment: No hemolysis noted. Ordering Provider: ALFREDITO MALDONADO Report Released Date/Time: Jan 24, 2024 03:44 PM Reporting Lab: [facility] [address] [facility] [address] Performing Lab: [facility] [address] [facility] [address] CREATININE 1.12 mg/dL 0.7-1.3 UREA NITROGEN 17.1 [...] U/L 8-40 EGFR (CKD-EPI 2020) 67.7 >60 Feb 28, 2024 01:06 PM [facility] CBC Specimen Type: BLOOD No comment entered. Ordering Provider: ALFREDITO MALDONADO Report Released Date/Time: Jan 24, 2024 03:44 PM Reporting Lab: [facility] [facility] [address] Performing Lab: [facility] [address] [facility] [address] WBC 7.0 10*3/uL 3.6-11.2 RBC 4.61 10*6/uL [...] 10*3/uL 0.00-0.[address]T FRACTION 5.1 1.0-7.0 Encounter Notes: All associated encounter notes This section contains the clinical notes associated to the Encounter. 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 diagnosed with prostate cancer and underwent radiation treatment. The pt is not requesting footwear. 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 Patient denies smoking. Patient drinks [...] current use of opiate analgesic drug Active Outpatient Medications (including Supplies): Active Outpatient [...] 14) TAPE,MEDIPORE H SOFT 2IN X 10YD 3M#2862 USE/APPLY 1 ACTIVE ROLL TO AFFECTED AREA(S) [...] ACTIVE TO AFFECTED EAR(S) TWICE A DAY 77 in [195.6 cm] (02/22/2023 10:2 296.4 lb [134.44 kg] (03/29/2023 15:47) Objective: Pt presents ambulating in leather every day footwear without assistance and oriented x 3. Few changes to the following objective findings from the Last clinic appt on Jan 03, 2014 Vasc: DP and PT pulses are palpable 1/4 b/l. CFT < 4 seconds b/l Hair growth is diminished on the digits, b/l feet. There is mild, moderate ankle edema present, b/l extremities. Neuro: Protective sensation is absent at all sites tested with [place] Mack 5.07 monofilament to both feet. This [...] medial nail groove, distal plantar, second toe, hemorrhagic keratosis, distal medial nail border to the hallu,left foot. grade 0 malperforans ulcer, distal plantar, second toe, hemorrhagic keratosis, left foot. 1 cm x 1cm x 1mm keratois with no violation to the sub- q region. NO evidence of infection, i.e. no erythema, no drainage, no edema, Ortho: 1st MPJ ROM diminished < 30 [...] 0 malperforans ulcer, distal plantar, second toe, keratosis, left foot. mark's long second toe, to the left foot with hammering. PLAN: Exam debride nails x 10, without incident FOOT RISK SCORE: high foot risk per the V[facility] directive 1122 discussed in detail -- moistorizer cream apply to the feet The patient agreed with the plan and voiced understanding with the discussion and plan. Discussed diabetic foot care in general. Pt relates verbal understanding. Pt encouraged to check feet daily. Pt given clinic phone numbers. PROSTHETICS: none this visit Pt RTC in 2 months Patient instructed to go to [facility], or contact their PCP with new pedal complaints, and if there are concerns or questions. Example includes infection. The pt voiced understanding of infection such as red, hot, swollen and streaking foot that may baccompanied with or without f/c/n/v/d/m/chest pain/sob/leg pain. /fransisco/ ANGELICA VERA D.P.M. Staff Physician - Podiatry Signed: 02/29/2024 14:10 ANGELICA VERA [facility]
--- OUTSIDE RECORDS SUMMARY | 2025-01-27 16:19 | XMS_ITS | Encounter Summary ---
Author Name [facility] ([place]) Address [address] [place] [address] Care Team Providers Care Plastic Surgery Coordinator Name Role Phone SERGEI NORWOOD Primary Care [...] PART B May 13, 2014 PART B [id number] [id number] Matty NERI FATIMAH PATIENT MEDICARE (WNR) MEDICARE (M) PART B May 13, 2014 PART B [id number] Matty NERI FATIMAH PATIENT MEDICARE (WNR) MEDICARE (M) PART A Aug 13, 2011 PART A [id number] [id number] Matty NERI FATIMAH PATIENT MEDICARE (WNR) MEDICARE (M) PART A Aug 13, 2011 PART A [id number] Matty NERIIEL PATIENT Selected Encounter This section includes the information on record at [place] for the Encounter. Date/Time Encounter Type Encounter Description Reason Provider Source Jun 21, 2024 05:51 PM Outpatient Encounter GENERAL INTERNAL MEDICINE SERGEI NORWOOD Selam Encounter Template Text not used by [place] Plan of Treatment: Future Appointments (+ 6 months) and Future Tests (+/- 45 days) The Plan of Treatment section includes future care activities for the patient [facility] all [place] [facility]. This section includes future appointments and future orders which are active, pending or scheduled. Future Appointments This section includes appointments that were scheduled to occur 6 months from the date of the Encounter, up to a maximum of 20 appointments. The data comes from all [place] treatment facilities. Appointment Date/Time Appointment Type Appointme nt Facility Name Jun 28, 2024 11:00 AM AMBULATORY - NONE [facility] Jul 01, 2024 09:00 AM AMBULATORY - NONE [facility] Jul 01, 2024 10:00 AM [facility] Jul 04, 2024 08:00 AM [facility] Jul 08, 2024 09:30 AM [facility] Jul 08, 2024 10:00 AM AMBULATORY - NONE [facility] Jul 23, 2024 10:45 AM AMBULATORY - MEDICINE [facility] Aug 07, 2024 01:40 PM AMBULATORY - MEDICINE [facility] Aug 08, 2024 01:00 PM [facility] Aug 14, 2024 03:15 PM AMBULATORY - MEDICINE [facility] Aug 20, 2024 02:00 PM AMBULATORY - SURGERY [facility] Sep 03, 2024 10:45 AM AMBULATORY - MEDICINE [facility] Sep 09, 2024 10:00 AM AMBULATORY - NONE [facility] Sep 16, 2024 10:45 AM AMBULATORY - MEDICINE [facility] Sep 27, 2024 02:20 PM AMBULATORY - SURGERY [facility] Oct 14, 2024 01:00 PM AMBULATORY - SURGERY [facility] Oct 16, 2024 02:45 PM AMBULATORY - MEDICINE [facility] Oct 17, 2024 10:30 AM AMBULATORY - REHAB MEDICIN [facility] Oct 25, 2024 02:00 PM AMBULATORY - SURGERY [facility] Oscar [facility] Nov 22, 2024 10:30 AM AMBULATORY - REHAB MEDICIN E [facility] Active, Pending, and Scheduled Orders This section includes a listing of several types of active, pending, and scheduled orders, including clinic medications orders, diagnostic test orders, procedure orders and consult orders; where the start date of the order is 45 days before the date of the Encounter or 45 days after the date of theEncounter. The data comes from all [place] treatment facilities. Test Date/Time Test Type Test Details Facility Name May 17, 2024 02:37 PM Consult Order COMMUNITY CARE-ST DENTAL SPEC Cons Salvage Supervisor's Choice [facility] Lab Results: +/- 30 days of [...] Range Comment Jun 21, 2024 10:44 AM [facility] URINE DRUG SCREEN (STL) Specimen Type: URINE Comment: The cut-off value for this test was laboratory developed and its performance characteristics confirmed by the [facility] laboratory thru method comparison with reference laboratory and medication chart review. The laboratory is regulated under CLIA as qualified to perform high-complexity testing. This test is used for clinical purposes in conjunction with other laboratory tests. Ordering Provider: CASH WOLFE Report Released Date/Time: May 28, 2024 02:02 PM Reporting Lab: [facility] [address] [facility] [address] Performing Lab: [facility] [address] [facility] [address] ETHANOL Negative mg/dL 0-20 AMPHET/METHAMPHE TAMINE Negative ng/mL COCAINE METABOLITES Negative ng/mL BENZODIAZEPINES (STL) Negative ng/mL CANNABINOIDS Negative ng/mL METHADONE Negative ng/mL OPIATES POSITIVE ng/mL CREATININE URINE/OTHERS 67.2 mg/dL 63-166 OXYCODONE (SMSNA-UAZ-AB) Negative ng/mL BUPRENORPHINE (STL-PB-MA) Negative ng/mL FENTANYL (STL-PB) Negative ng/mL Jun 21, 2024 10:40 AM [facility] TSH (MA-PB) Specimen Type: SERUM No comment entered. Ordering Provider: ALFREDITO MALDONADO Report Released Date/Time: Jun 19, 2024 03:02 PM Reporting Lab: [address] [address] Performing Lab: [address] [address] TSH 1.328 u[IU]/mL 0.47-5 Jun 21, 2024 10:40 AM [facility] HGA1C Specimen Type: BLOOD No comment entered. Ordering Provider: ALFREDITO MALDONADO Report Released Date/Time: Jun 19, 2024 03:02 PM Reporting Lab: [address] [address] Performing Lab: [address] [address] HGA1C 6.4 H 4.0-6.0 Jun 21, 2024 10:40 AM [facility] URINALYSIS (STL-PB) Specimen Type: URINE No comment entered. Ordering Provider: ALFREDITO MALDONADO Report Released Date/Time: Jun 19, 2024 03:02 PM Reporting Lab: [address] [address] Performing Lab: [address] [address] URINE COLOR Light-Yellow Yellow U.BILIRUBIN Negative mg/dL Negative U.PH 6.0 5.0-8.0 APPEARANCE Clear Clear U.NITRITE Negative mg/dL Negative URN.GLUCOSE 50 mg/dL H Negative URN.PROTEIN Negative mg/dL Neg ative-2 0 URN.UROBILINOGEN Normal mg/dL Normal URN.BLOOD Negative mg/dL Negat guerline-T race URN.KETONES Negative mg/dL Neg ative-T race URN.LEUK.EST. Negative mg/dL N egative-T race URN.SPECIFIC GRAVITY 1.015 1.005-1.02 9 Jun 21, 2024 10:40 AM [facility] COMPREHENSIVE METABOLIC PANEL Specimen Type: PLASMA Comment: No hemolysis noted. Ordering Provider: ALFREDITO MALDONADO Report Released Date/Time: Jun 19, 2024 03:02 PM Reporting Lab: [facility] [address] [facility] [address] Performing Lab: [address] [address] CREATININE 1.03 mg/dL 0.7-1.3 UREA NITROGEN 15.3 [...] 74.8 >60 Jun 21, 2024 10:40 AM [facility] CBC Specimen Type: BLOOD No comment entered. Ordering Provider: ALFREDITO MALDONADO Report Released Date/Time: Jun 19, 2024 03:02 PM Reporting Lab: [facility] [address] [facility] [address] Performing Lab: [address] [address] WBC 7.7 10*3/uL 3.6-11.2 RBC 4.45 10*6/uL [...] and tobacco- related health factors from the [place] facility where the Encounter took place. Current Smoking Status This section includes the most current smoking, or tobacco-related health factor, from the [place] facility where the Encounter took place. Date/Time Current Smoking Status Comment Facil ity May 26, 2021 04:12 PM ORYX ADMIT TOBACCO SCREEN NO [facility] Encounter Notes: All associated encounter notes This section contains the clinical notes associated to the Encounter. Date/Time Encounter Note(s) Provider Source Jun 18, 2024 05:51 PM NONVA NOTE: LOCAL TITLE: COMMUNITY CARE-KALI SELF PRESENTING CARE COORD PLAN STANDARD TITLE: NONVA NOTE DATE OF NOTE: JUN 18, 2024@17:51 ENTRY DATE: JUN 21, 2024@17:51:56 AUTHOR: CRISTHIAN MORTENSEN EXP COSIGNER: URGENCY: STATUS: COMPLETED COMMUNITY CARE-KALI SELF PRESENTING CARE COORD PLAN 657 STL Has ADDENDA Emergency Notification Intake Date Presenting to the Facility: Jun Method of Contact: Notified from [facility] worklist Notification ID: [id number] [facility] Referral #: [id number] Clinical Review [facility] Name: Hospital: [facility] Address: [facility] [address] City: [place] State: [place] Zip Code: [address] Community Facility Point of Contact: Name: Phone: Chief complaint: I FAINTED IN FRONT OF MY DAUGHTER AND SHE CALLED THE AMBULANCE Primary Diagnosis: Disposition Discharged Date of discharge: Jun Discharge to home No records for this r/t in [facility] or [facility] Faxed request for records to above hospital /fransisco/ CRISTHIAN MORTENSEN [facility] IT AUDIT MANAGER Signed: 06/21/2024 17:55 Receipt Acknowledged By: 06/24/2024 08:22 /es/ SERGEI NORWOOD MD STAFF PHYSICIAN ECRS 06/24/2024 12:52 /fransisco/ TIAGO SAUCEDON, RN REGISTERED NURSE 06/25/2024 ADDENDUM STATUS: COMPLETED RECORDS REC'D and sent to [facility] for scanning. /fransisco/ NOE GUIDRY FIOS LINE INSTALLER Signed: 06/25/2024 12:37 CRISTHIAN MORTENSEN [facility]
--- OUTSIDE RECORDS SUMMARY | 2025-01-27 16:19 | XMS_ITS | Encounter Summary ---
Author Name [facility] [place] [facility] [place] [facility] [place] Address [address] [place] [address] Care Team Providers Care Remedial Teacher Name Role Phone SERGEI NORWOOD Primary Care [...] PART B May 13, 2014 PART B [id number] Matty NERIIEL PATIENT MEDICARE (WNR) MEDICARE (M) PART B May 13, 2014 PART B [id number] Matty NERIIEL PATIENT MEDICARE (WNR) MEDICARE (M) PART A Aug 13, 2011 PART A [id number] 40A Matty NERIIEL PATIENT MEDICARE (WNR) MEDICARE (M) PART A Aug 13, 2011 PART A [id number] Matty NEIRIEL PATIENT Selected Encounter This section includes the information on record at [place] for the Encounter. Date/Time Encounter Type Encounter Description Reason Provider Source Oct 14, 2024 01:00 PM INTRM OPH EXAM EST PATIENT OPTOMETRY ICD-10-CM H25.12 Age-related nuclear cataract, left eye JIMMY,RAMY Beverley [facility] Encounter Template Text not used by [facility] Assessments - Encounter Diagnoses This section includes the primary and secondary diagnoses documented for the Encounter. Date/Time Primary/Secondary Diagnosis Diagnosis Name Provider Source Oct 14, 2024 03:06 PM PRIMARY Age-related nuclear cataract, left eye JIMMYDANIA THOMAS Beverley [facility] Oct 14, 2024 03:06 PM SECONDARY Age-related nuclear cataract, right eye JIMMYDANIA THOMAS Beverley [facility] Oct 14, 2024 03:06 PM SECONDARY Myopia, bilateral JIMMYPRIYANKAlbert Lowery [facility] Oct 14, 2024 03:06 PM SECONDARY Presbyopia DANIA MARQUEZ [facility] Plan of Treatment: Future Appointments (+ 6 months) and Future Tests (+/- 45 days) The Plan of Treatment section includes future care activities for the [facility] [place] [facility] This section includes future appointments and future orders which are active, pending or scheduled. Future Appointments This section includes appointments that were scheduled to occur 6 months from the date of the Encounter, up to a maximum of 20 appointments. The data comes from all [place] treatment facilities. Appointment Date/Time Appointment Type Appointme nt Facility Name Oct 16, 2024 02:45 PM AMBULATORY - MEDICINE [facility] Oct 17, 2024 10:30 AM AMBULATORY - REHAB [facility] Oct 25, 2024 02:00 PM AMBULATORY - SURGERY [facility] Nov 22, 2024 10:30 AM AMBULATORY - REHAB MEDICIN E [facility] Nov 25, 2024 11:00 AM AMBULATORY - REHAB MEDICIN E [facility] Jan 15, 2025 03:40 PM AMBULATORY - MEDICINE [facility] Jan 28, 2025 02:00 PM AMBULATORY - SURGERY [facility] Feb 05, 2025 03:00 PM AMBULATORY - MEDICINE [facility] Feb 12, 2025 01:45 PM AMBULATORY - MEDICINE [facility] Feb 13, 2025 01:00 PM AMBULATORY - SURGERY [facility] Mar 05, 2025 11:15 AM AMBULATORY - REHAB MEDICIN E [facility] March 26, 2025 11:20 AM AMBULATORY - SURGERY [facility] Active, Pending, and Scheduled Orders This [...] URINE DRUG SCREEN (STL) URINE YELLOW SP [facility] Oct 17, 2024 12:00 AM Laboratory - Chemi stry Order LIPID PANEL (STL) GREEN LI/HEP BLD/PLAS PLASMA SP [facility] Lab Results: +/- 30 days [...] Range Comment Sep 27, 2024 03:15 PM [facility] URINE DRUG SCREEN (STL) Specimen Type: URINE Comment: The cut-off value for Fentanyl was laboratory developed and its performance characteristics confirmed by the [facility] laboratory thru method comparison with reference laboratory and medication chart review. The laboratory is regulated under CLIA as qualified to perform high-complexity testing. Fentanyl is used for clinical purposes in conjunction with other laboratory tests. Ordering Provider: SCOTTIE BULLOCK Report Released Date/Time: Sep 26, 2024 09:24 AM Reporting Lab: [facility] [address] [facility] [id number] Performing Lab: [place] [address] [facility] [id number] ETHANOL Negative mg/dL 0-20 AMPHET/METHAMPHE TAMINE Negative ng/mL COCAINE METABOLITES Negative ng/mL BENZODIAZEPINES (STL) Negative ng/mL CANNABINOIDS Negative ng/mL METHADONE Negative ng/mL OPIATES POSITIVE ng/mL CREATININE URINE/OTHERS 115.1 mg/dL 63-166 OXYCODONE (MANNM-VMV-LW) Negative ng/mL BUPRENORPHINE (STL-PB-MA) Negative ng/mL FENTANYL (STL-PB) Negative ng/mL Sep 27, 2024 03:13 PM [facility] PROST. SPECIFIC AG.(PB-STL) Specimen Type: SERUM Comment: The listed sex of this patient may not be a typical indication for this test. Therefore, reference ranges or interpretive criteria listed may not be valid. Clinical correlation suggested. Ordering Provider: HARIS MCMULLEN Report Released Date/Time: Sep 27, 2024 02:58 PM Reporting Lab: [place] [address] [facility] [id number] Performing Lab: [address] [address] PROST. SPECIFIC AG.(PB-STL) 0.118 ng/mL 0-4 Social History: Smoking Status (Most current) and Tobacco Use (All prior to encounter date) This section includes the most current, and the historical, smoking and tobacco- related health factors from the [place] facility where the Encounter took place. Current Smoking Status This section includes the most current smoking, or tobacco-related health factor, from the [place] facility where the Encounter took place. Date/Time Current Smoking Status Comment Amol alston Apr 29, 2024 11:00 AM [place]-TOBACCO FORMER USER [facility] Tobacco Use History This section includes a history of the smoking, or tobacco-related health factors, that were collected on or before the date of the Encounter. The data comes from the [place] facility where the Encounter took place. Date/Time Smoking Status/Tobacco Use Comment Chikis drew Apr 29, 2024 11:00 AM IN-TOBACCO QUIT 15 YRS OR MORE [facility] Encounter Notes: All associated encounter notes This section contains the clinical notes associated to the Encounter. Date/Time Encounter Note(s) Provider Source Jan 27, 2025 08:16 AM ADDENDUM: LOCAL TITLE: Addendum STANDARD TITLE: ADDENDUM DATE OF NOTE: JAN 27, 2025@08:16:33 ENTRY DATE: JAN 27, 2025@08:16:34 AUTHOR: JANIA PATTON EXP COSIGNER: URGENCY: STATUS: COMPLETED called clinic stating he has lost his contact for right eye. /fransisco/ MCKENNA DURAND rn bone marrow transplant, Ophthalmology Signed: 01/27/2025 08:17 Receipt Acknowledged By: 01/27/2025 09:03 /fransisco/ TRINO MARQUEZ OD CHEF SAUCIER === --- Original Document --- 10/14/24 OPTOMETRY NOTE: Last seen: 10/16/23 comp. Here for: CL check CC: 1. CL wear -wears spherical GP's for high myopia from [facility] -here for CL check -happy with vision -lenses comfortable -cleans w/[employer] nightly -never sleeps in contacts -wears contacts daily -wears pals only when waking up in middle of the night 2. 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 Family OcHX: (-) blindness (-) glaucoma (-) AMD (-) RD Cardiovascular ROS: no change from problem & medication lists CPRS Problem list, medications and allergies reviewed: CPRS Serology for Diabetes GLUCOSE 244 H mg/dL 06/21/2024 10:40 HGA1C 6.4 H % 06/21/2024 10:40 Cardiovascular BP: 114/74 (09/27/2024 14:23) Pulse: 85 (09/27/2024 14:23) Neuro: Orientation: Normal Psych: Mood/Affect: Normal Depression/suicide ideation: NO VISUAL ACUITY Pt wearing CL to appointment today, see CL assessment below Pupils PERRL OU (-)APD Confrontation: FTFC OU Extra-Ocular Muscles Full OU Externals/adnexa: Unremarkable OU Refraction 10/16/2023 OD -7.25-1.85g858 20/30+2 OS -7.25-2.17z395 20/20 Add +2.50 SLIT LAMP EXAMINATION Lids/Lashes/Lacrimal MGD OU Conjunctiva/Sclera White/quiet OU Cornea Clear OU Ant Chamber Deep and quiet OU Angles 4/4 VH OU Iris Flat and intact OU (-)NVI Lens 1+ NS OU, tr vacs OS (undilated) Assessment/Plan DATE: 10/14/24 1. CL wear See CL Assessment below. Pt happy with vision/comfort in current lenses VA in habitual contacts 20/20-, 20/20 OD, OS Cont. with habitual lenses for now Reviewed proper CL wear, care, & hygiene; told pt to cont. cleaning nightly w/[employer] Instructed pt to discontinue lens wear & RTC STAT should redness, pain, discharge, or vision changes occur RTC CL clinic 12m for CL check. *below not fully assessed today, A/P mostly carried forward from prior comp. exam. 2. DM w/o h/o retinopathy Last a1c 6.4% Ed on good bg control Monitor at next comp. 3. Cataracts Defer CE at this time, monitor. Patient became upset when I told him he has had cataracts for many years. States he's never been told this. 4. 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 Pt edu on all findings and given the opportunity to have questions answered RTC 4m for comp. exam RTC 12m CL clinic for CL check CONTACT LENS ASSESSMENT: 10/14/24 OD: [employer] EO Standard PWR: -6.00 sphere RAZIA: 9.50 BC: 7.84 CT: 0.12 [employer] VA: 20/20-2 OR: -0.25 to 20/20- Fit: lid attached fit - adequate movement of lens with blink, edge lift adequate OS: [employer] [place] EO Standard PWR: -6.50 sphere BC: 7.84 RAZIA: 9.50 CT: 0.12 [employer] VA: 20/20 OR: plano to 20/20 Fit: lid attached fit - adequate movement of lens with blink, edge lift adequate, slightly decentered inf. nasal /fransisco/ LEEANNE JOLLY O.D. RESIDENT CHEF SAUCIER Signed: 10/14/2024 15:11 /fransisco/ TRINO MARQUEZ OD CHEF SAUCIER Cosigned: 10/14/2024 15:11 10/14/2024 ADDENDUM STATUS: COMPLETED I have reviewed the history, findings and agree with the assessment and plan as charted in CPRS on this established patient. /surendra MARQUEZ OD CHEF SAUCIER Signed: 10/14/2024 15:12 01/01/2025 ADDENDUM STATUS: COMPLETED Wishek left voice message stating he has lost his hard contact lens. Asking for replacement. /fransisco/ MCKENNA DURAND rn bone marrow transplant, Ophthalmology Signed: 01/01/2025 14:10 Receipt Acknowledged By: 01/02/2025 09:45 /surendra MARQUEZ OD CHEF SAUCIER 01/02/2025 ADDENDUM STATUS: COMPLETED Called and spoke with patient to see which lens he needed mailed, he found his lens and does not need a replacement mailed. /surendra MARQUEZ OD CHEF SAUCIER Signed: 01/02/2025 09:46 JANIA PATTON [facility] Jan 01, 2025 02:09 PM ADDENDUM: LOCAL TITLE: Addendum STANDARD TITLE: ADDENDUM DATE OF NOTE: JAN 01, 2025@14:09:43 ENTRY DATE: JAN 01, 2025@14:09:44 AUTHOR: JANIA PATTON EXP COSIGNER: URGENCY: STATUS: COMPLETED Wishek left voice message stating he has lost his hard contact lens. Asking for replacement. /fransisco/ MCKENNA DURAND rn bone marrow transplant, Ophthalmology Signed: 01/01/2025 14:10 Receipt Acknowledged By: 01/02/2025 09:45 /es/ TRINO MARQUEZ OD CHEF SAUCIER === --- Original Document --- 10/14/24 OPTOMETRY NOTE: Last seen: 10/16/23 comp. Here for: CL check CC: 1. CL wear -wears spherical GP's for high myopia from [facility] -here for CL check -happy with vision -lenses comfortable -cleans w/[employer] nightly -never sleeps in contacts -wears contacts daily -wears pals only when waking up in middle of the night 2. 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 Family OcHX: (-) blindness (-) glaucoma (-) AMD (-) RD Cardiovascular ROS: no change from problem & medication lists CPRS Problem list, medications and allergies reviewed: CPRS Serology for Diabetes GLUCOSE 244 H mg/dL 06/21/2024 10:40 HGA1C 6.4 H % 06/21/2024 10:40 Cardiovascular BP: 114/74 (09/27/2024 14:23) Pulse: 85 (09/27/2024 14:23) Neuro: Orientation: Normal Psych: Mood/Affect: Normal Depression/suicide ideation: NO VISUAL ACUITY Pt wearing CL to appointment today, see CL assessment below Pupils PERRL OU (-)APD Confrontation: FTFC OU Extra-Ocular Muscles Full OU Externals/adnexa: Unremarkable OU Refraction 10/16/2023 OD -7.25-1.46k232 20/30+2 OS -7.25-2.09v633 20/20 Add +2.50 SLIT LAMP EXAMINATION Lids/Lashes/Lacrimal MGD OU Conjunctiva/Sclera White/quiet OU Cornea Clear OU Ant Chamber Deep and quiet OU Angles 4/4 VH OU Iris Flat and intact OU (-)NVI Lens 1+ NS OU, tr vacs OS (undilated) Assessment/Plan DATE: 10/14/24 1. CL wear See CL Assessment below. Pt happy with vision/comfort in current lenses VA in habitual contacts 20/20-, 20/20 OD, OS Cont. with habitual lenses for now Reviewed proper CL wear, care, & hygiene; told pt to cont. cleaning nightly w/[employer] Instructed pt to discontinue lens wear & RTC STAT should redness, pain, discharge, or vision changes occur RTC CL clinic 12m for CL check. *below not fully assessed today, A/P mostly carried forward from prior comp. exam. 2. DM w/o h/o retinopathy Last a1c 6.4% Ed on good bg control Monitor at next comp. 3. Cataracts Defer CE at this time, monitor. Patient became upset when I told him he has had cataracts for many years. States he's never been told this. 4. 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 Pt edu on all findings and given the opportunity to have questions answered RTC 4m for comp. exam RTC 12m CL clinic for CL check CONTACT LENS ASSESSMENT: 10/14/24 OD: [employer] EO Standard PWR: -6.00 sphere RAZIA: 9.50 BC: 7.84 CT: 0.12 [employer] VA: 20/20-2 OR: -0.25 to 20/20- Fit: lid attached fit - adequate movement of lens with blink, edge lift adequate OS: [employer] EO Standard PWR: -6.50 sphere BC: 7.84 RAZIA: 9.50 CT: 0.12 [employer] VA: 20/20 OR: plano to 20/20 Fit: lid attached fit - adequate movement of lens with blink, edge lift adequate, slightly decentered inf. nasal /fransisco/ LEEANNE JOLLY O.D. RESIDENT CHEF SAUCIER Signed: 10/14/2024 15:11 /fransisco/ TRINO MARQUEZ OD CHEF SAUCIER Cosigned: 10/14/2024 15:11 10/14/2024 ADDENDUM STATUS: COMPLETED I have reviewed the history, findings and agree with the assessment and plan as charted in CPRS on this established patient. /fransisco/ TRINO MARQUEZ OD CHEF SAUCIER Signed: 10/14/2024 15:12 01/02/2025 ADDENDUM STATUS: UNSIGNED You may not VIEW this UNSIGNED Addendum. JANIA PATTON [facility] Oct 14, 2024 07:56 AM OPTOMETRY NOTE: LOCAL TITLE: OPTOMETRY NOTE STANDARD TITLE: OPTOMETRY NOTE DATE OF NOTE: OCT 14, 2024@07:56 ENTRY DATE: OCT 14, 2024@07:56:36 AUTHOR: LEEANNE JOLLY EXP COSIGNER: TRINO MARQUEZ URGENCY: STATUS: COMPLETED OPTOMETRY NOTE Has ADDENDA Last seen: 10/16/23 comp. Here for: CL check CC: 1. CL wear -wears spherical GP's for high myopia from [facility] -here for CL check -happy with vision -lenses comfortable -cleans w/[employer] nightly -never sleeps in contacts -wears contacts daily -wears pals only when waking up in middle of the night 2. 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 Family OcHX: (-) blindness (-) glaucoma (-) AMD (-) RD Cardiovascular ROS: no change from problem & medication lists CPRS Problem list, medications and allergies reviewed: CPRS Serology for Diabetes GLUCOSE 244 H mg/dL 06/21/2024 10:40 HGA1C 6.4 H % 06/21/2024 10:40 Cardiovascular BP: 114/74 (09/27/2024 14:23) Pulse: 85 (09/27/2024 14:23) Neuro: Orientation: Normal Psych: Mood/Affect: Normal Depression/suicide ideation: NO VISUAL ACUITY Pt wearing CL to appointment today, see CL assessment below Pupils PERRL OU (-)APD Confrontation: FTFC OU Extra-Ocular Muscles Full OU Externals/adnexa: Unremarkable OU Refraction 10/16/2023 OD -7.25-1.57g887 20/30+2 OS -7.25-2.86w156 20/20 Add +2.50 SLIT LAMP EXAMINATION Lids/Lashes/Lacrimal MGD OU Conjunctiva/Sclera White/quiet OU Cornea Clear OU Ant Chamber Deep and quiet OU Angles 4/4 VH OU Iris Flat and intact OU (-)NVI Lens 1+ NS OU, tr vacs OS (undilated) Assessment/Plan DATE: 10/14/24 1. CL wear See CL Assessment below. Pt happy with vision/comfort in current lenses VA in habitual contacts 20/20-, 20/20 OD, OS Cont. with habitual lenses for now Reviewed proper CL wear, care, & hygiene; told pt to cont. cleaning nightly w/[employer] Instructed pt to discontinue lens wear & RTC STAT should redness, pain, discharge, or vision changes occur RTC CL clinic 12m for CL check. *below not fully assessed today, A/P mostly carried forward from prior comp. exam. 2. DM w/o h/o retinopathy Last a1c 6.4% Ed on good bg control Monitor at next comp. 3. Cataracts Defer CE at this time, monitor. Patient became upset when I told him he has had cataracts for many years. States he's never been told this. 4. 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 Pt edu on all findings and given the opportunity to have questions answered RTC 4m for comp. exam RTC 12m CL clinic for CL check CONTACT LENS ASSESSMENT: 10/14/24 OD: [employer] EO Standard PWR: -6.00 sphere RAZIA: 9.50 BC: 7.84 CT: 0.12 [employer] VA: 20/20-2 OR: -0.25 to 20/20- Fit: lid attached fit - adequate movement of lens with blink, edge lift adequate OS: [employer] EO Standard PWR: -6.50 sphere BC: 7.84 RAZIA: 9.50 CT: 0.12 [employer] VA: 20/20 OR: plano to 20/20 Fit: lid attached fit - adequate movement of lens with blink, edge lift adequate, slightly decentered inf. nasal /fransisco/ LEEANNE JOLLY O.D. RESIDENT CHEF SAUCIER Signed: 10/14/2024 15:11 /fransisco/ TRINO MARQUEZ OD CHEF SAUCIER Cosigned: 10/14/2024 15:11 10/14/2024 ADDENDUM STATUS: COMPLETED I have reviewed the history, findings and agree with the assessment and plan as charted in CPRS on this established patient. /fransisco/ TRINO MARQUEZ OD CHEF SAUCIER Signed: 10/14/2024 15:12 01/01/2025 ADDENDUM STATUS: COMPLETED Wishek left voice message stating he has lost his hard contact lens. Asking for replacement. /es/ MCKENNA DURAND RN Case Manager, Ophthalmology Signed: 01/01/2025 14:10 Receipt Acknowledged By: 01/02/2025 09:45 /fransisco/ TRINO MARQUEZ OD CHEF SAUCIER 01/02/2025 ADDENDUM STATUS: COMPLETED Called and spoke with patient to see which lens he needed mailed, he found his lens and does not need a replacement mailed. /fransisco/ TRINO MARQUEZ OD CHEF SAUCIER Signed: 01/02/2025 09:46 01/27/2025 ADDENDUM STATUS: COMPLETED Wishek called clinic stating he has lost his contact for right eye. /es/ MCKENNA DURAND RN Case Manager, Ophthalmology Signed: 01/27/2025 08:17 Receipt Acknowledged By: * AWAITING SIGNATURE * TRINO MARQUEZ [facility]
--- OUTSIDE RECORDS SUMMARY | 2025-01-27 16:19 | XMS_ITS | Encounter Summary ---
Author Name [facility] ([place] Organization [facility] ([place]) Address [address] [place] [address] Care Team Providers Care Firer Watertender Name Role Phone SERGEI NORWOOD Primary Care [...] PART B May 13, 2014 PART B [id number] Matty NERI FATIMAH PATIENT MEDICARE (WNR) MEDICARE (M) PART B May 13, 2014 PART B [id number] Matty NERI FATIMAH PATIENT MEDICARE (WNR) MEDICARE (M) PART A Aug 13, 2011 PART A [id number] Matty NERI FATIMAH PATIENT MEDICARE (WNR) MEDICARE (M) PART A Aug 13, 2011 PART A [id number] Matty NERI FATIMAH PATIENT Selected Encounter This section includes the information on record at CT for the Encounter. Date/Time Encounter Type Encounter Description Reason Provider Source Aug 14, 2024 03:15 PM OFFICE O/P EST MOD 30 MIN DERMATOLOGY ICD-10-CM L57.0 Actinic keratosis KAREN SHAW Sel[place] Encounter Template Text not used by CT Assessments - Encounter Diagnoses This section includes the primary and secondary diagnoses documented for the Encounter. Date/Time Primary/Secondary Diagnosis Diagnosis Name Provider Source Aug 14, 2024 03:48 PM PRIMARY Actinic keratosis DWAINE BRONSON [facility] Aug 14, 2024 03:48 PM SECONDARY Other seborrheic dermatitis DWAINE BRONSON [facility] Aug 14, 2024 03:48 PM SECONDARY Personal history of other malignant neoplasm of skin DWAINE BRONSON [facility] Aug 14, 2024 03:48 PM SECONDARY Xerosis cutis AUDIE,[facility] Plan of Treatment: Future Appointments (+ 6 months) and Future Tests (+/- 45 days) The Plan of Treatment section includes future care activities for the patient from all CT treatmentfacilities. This section includes future appointments and future orders which are active, pending or scheduled. Future Appointments This section includes appointments that were scheduled to occur 6 months from the date of the Encounter, up to a maximum of 20 appointments. The data comes from all CT treatment facilities. Appointment Date/Time Appointment Type Appointme nt Facility Name Aug 20, 2024 02:00 PM AMBULATORY - SURGERY [facility] Sep 03, 2024 10:45 AM AMBULATORY - MEDICINE [facility] Sep 09, 2024 10:00 AM AMBULATORY - NONE [facility] Sep 16, 2024 10:45 AM AMBULATORY - MEDICINE [facility] Sep 27, 2024 02:20 PM AMBULATORY - SURGERY [facility] Oct 14, 2024 01:00 PM AMBULATORY - SURGERY [facility] Oct 16, 2024 02:45 PM AMBULATORY - MEDICINE [facility] Oct 17, 2024 10:30 AM AMBULATORY - REHAB MEDICIN E [facility] Oct 25, 2024 02:00 PM AMBULATORY - SURGERY [facility] Nov 22, 2024 10:30 AM AMBULATORY - REHAB MEDICIN E [facility] Nov 25, 2024 11:00 AM AMBULATORY - REHAB MEDICIN E [facility] Jan 15, 2025 03:40 PM AMBULATORY - MEDICINE [facility] Jan 28, 2025 02:00 PM AMBULATORY - SURGERY [facility] Feb 05, 2025 03:00 PM AMBULATORY - MEDICINE [facility] Feb 12, 2025 01:45 PM AMBULATORY - MEDICINE [facility] Active, Pending, and Scheduled Orders This section includes a listing of several types of active, pending, and scheduled orders, including clinic medications orders, diagnostic test orders, procedure orders and consult orders; where the start date of the order is 45 days before the date of the Encounter or 45 days after the date of theEncounter. The data comes from all CT treatment facilities. Test Date/Time Test Type Test Details Facility Name Sep 02, 2024 12:00 AM Laboratory - Chemi stry Order URINE DRUG SCREEN (STL) URINE YELLOW SP [facility] Encounter Notes: All associated encounter notes This section contains the clinical notes associated to the Encounter. Date/Time Encounter Note(s) Provider Source Aug 14, 2024 03:29 PM DERMATOLOGY NOTE: LOCAL TITLE: DERMATOLOGY NOTE STANDARD TITLE: DERMATOLOGY NOTE DATE OF NOTE: AUG 14, 2024@15:29 ENTRY DATE: AUG 14, 2024@15:29:41 AUTHOR: DWAINE BRONSON EXP COSIGNER: KAREN SHAW URGENCY: STATUS: COMPLETED DERMATOLOGY NOTE Has ADDENDA CT DERMATOLOGY CLINIC NOTE CC: FBSE HPI: HUYEN NERI is a 78 year old WHITE MALE with a history of BCC L lower eyelid s/p Mohs 2018 here for FBSE. 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. History, medications and allergies reviewed. ROS: no new rashes, growths, changing moles, no vision changes Exam: -[place] scaly papule at R chin -Scaly ulcerated papules at R neck -Xerosis at b/l arms -Multiple stuck-on waxy collazo plaques, trunk and extremities -Multiple regular collazo to brown round macules, trunk and extremities -Red dome-shaped papules, trunk and extremities -WHSS as above General Appearance: Well-appearing, NAD Face: otherwise unremarkable Ears: otherwise unremarkable Scalp, Hair: otherwise unremarkable Neck: otherwise unremarkable Chest: otherwise unremarkable Abd: otherwise unremarkable Back: otherwise unremarkable Upper Extremities: otherwise unremarkable Nails: otherwise unremarkable Mood/Affect: appropriate Assessment and Plan: #Actinic keratoses; R chin - Discussed precancerous etiology with patient - Following verbal consent, LN2 x 5-7 seconds x 2 cycles x 1 lesion - Dicussed wound care; can continue to monitor lesions; if lesions recur or do not respond to LN2 treatment, can consider biopsy at NOV to r/o atypia #Excoriations; R neck - Keep nails short - Start mupirocin 2% ointment - apply to open sores on neck BID #Brachioradial pruritus; b/l arms #Xerosis cutis - Recommend frequent emollients - Start SARNA camphor/menthol lotion - apply to itchy spots on arms TID - store in fridge - new Rx sent today #Seborrheic dermatitis - Start DAISHA 2% shampoo - Start clob sln qday prn #Seborrheic keratoses #[place] angiomas #Lentigines - Benign, patient reassured #Hx NMSC - NER - Photoprotect, daily SPF 30+ - Return for tender/bleeding/change - Regular self and MD skin checks RTC 6 months prn /fransisco/ DWAINE BRONSON MD DERMATOLOGY RESIDENT Signed: 08/14/2024 15:49 /fransisco/ Karen Shaw M.D., Ph.D. Veterinary Practice Manager - Dermatology Cosigned: 08/14/2024 16:06 08/14/2024 ADDENDUM STATUS: COMPLETED Discussed case with resident. Agree with history, physical examination, assessment, and plan. /fransisco/ Karen Shaw M.D., Ph.D. Veterinary Practice Manager - Dermatology Signed: 08/14/2024 16:06 DWAINE BRONSON [facility]
--- OUTSIDE RECORDS SUMMARY | 2025-01-27 16:19 | XMS_ITS | Encounter Summary ---
Author Organization [facility] Address 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 Gender Identity Not on file Sexual Orientation Not on file documented as of this encounter Plan of Treatment Not on file documented as of this encounter Procedures Procedure Name Priority Date/Time Associated Diagnosis Comments SOURCE, FLUID Routine 10/29/2007 7:06 PM MECHANICAL OPERATOR SYNOVIAL FLUID CRYSTAL Routine 10/29/2007 7:06 PM MECHANICAL OPERATOR CELL COUNT WITH DIFFERENTIAL, BODY FLUID Routine 10/29/2007 7:06 PM MECHANICAL OPERATOR documented in this encounter Results * SOURCE, FLUID (10/29/2007 7:06 PM MECHANICAL OPERATOR) SOURCE FLUID Knee, Right INTERFACE SYSTEM 10/29/2007 7:06 PM MECHANICAL OPERATOR us Juan Burnett MD HEMATOLOGY ORDERABLES Edited INTERFACE SYSTEM Refer to clinic/hospital department * SYNOVIAL FLUID CRYSTAL (10/29/2007 7:06 PM MECHANICAL OPERATOR) JOINT FLD CRYSTAL QTY Negative Negative INTERFACE SYSTEM CRYSTALS INTERPRETED BY: El Hill MD INTERFACE SYSTEM 10/29/2007 7:06 PM MECHANICAL OPERATOR Juan Burnett MD BODY FLUIDS AND STOOLS Edited Performing Organization Address [facility] Phone Number INTERFACE SYSTEM Refer to clinic/hospital department * CELL COUNT WITH DIFFERENTIAL, BODY FLUID (10/29/2007 7:06 PM MECHANICAL OPERATOR) WBC, FLD 2,656 /uL INTERFACE SYSTEM RBC, [...] WBC Counted INTERFACE SYSTEM 10/29/2007 7:06 PM MECHANICAL OPERATOR Juan Burnett MD BODY FLUIDS AND STOOLS Edited Performing Organization Address [facility] Phone Number INTERFACE SYSTEM Refer to clinic/hospital department documented in this encounter Visit Diagnoses Not on filedocumented in this encounter Care Teams Scow Derrick Operator Relationship Specialty Start Date End Date Juan Ha MD PCP - General Internal Medicine 08/12/11 documented as of this encounter
--- OUTSIDE RECORDS SUMMARY | 2025-01-27 16:19 | XMS_ITS | Encounter Summary ---
Author Name [facility] Organization [facility] Address [address] [place] [address] Care Team Providers Care Bladder Cleaner Name Role Phone SERGEI NORWOOD Primary Care [...] PART B May 13, 2014 PART B [id number] NERIMatty FATIMAH PATIENT MEDICARE (WNR) MEDICARE (M) PART B May 13, 2014 PART B [id number] Matty NERI FATIMAH PATIENT MEDICARE (WNR) MEDICARE (M) PART A Aug 13, 2011 PART A [id number] Matty NERI FATIMAH PATIENT MEDICARE (WNR) MEDICARE (M) PART A Aug 13, 2011 PART A [id number] Matty NERIIEL PATIENT Selected Encounter This section includes the information on record at ID for the Encounter. Date/Time Encounter Type Encounter Description Reason Provider Source Jun 19, 2024 02:00 PM OFFICE O/P EST MOD 30 MIN ENDOCRINOLOGY ICD-10-CM I10 Essential (primary) hypertension ALFREDITO CHEN [facility] Encounter Template Text not used by ID Assessments - Encounter Diagnoses This section includes the primary and secondary diagnoses documented for the Encounter. Date/Time Primary/Secondary Diagnosis Diagnosis Name Provider Source Jun 19, 2024 05:34 PM PRIMARY Essential (primary) hypertension ALFREDITO CHEN [facility] Jun 19, 2024 05:34 PM SECONDARY Hyperlipidemia, unspecified [facility] Jun 19, 2024 05:34 PM SECONDARY Testicular hypofunction [facility] Jun 19, 2024 05:34 PM SECONDARY Type 2 diabetes mellitus with diabetic neuropathy, unsp [facility] Plan of Treatment: Future Appointments (+ 6 months) and Future Tests (+/- 45 days) The Plan of Treatment section includes future care activities for the patient [facility] This section includes future appointments and [...] 28, 2024 11:00 AM AMBULATORY - NONE [facility] Jul 01, 2024 09:00 AM AMBULATORY - NONE [facility] Jul 01, 2024 10:00 AM AMBULATORY - NONE [facility] Jul 04, 2024 08:00 AM AMBULATORY - NONE [facility] Jul 08, 2024 09:30 AM AMBULATORY - NONE [facility] Jul 08, 2024 10:00 AM AMBULATORY - NONE [facility] Jul 23, 2024 10:45 AM AMBULATORY - MEDICINE [facility] Aug 07, 2024 01:40 PM AMBULATORY - MEDICINE [facility] Aug 08, 2024 01:00 PM AMBULATORY - NONE [facility] Aug 14, 2024 03:15 PM AMBULATORY - MEDICINE [facility] Aug 20, 2024 02:00 PM AMBULATORY - SURGERY . Oscar [facility] Sep 03, 2024 10:45 AM AMBULATORY - MEDICINE [facility] Sep 09, 2024 10:00 AM AMBULATORY - NONE Darius Marlow [facility] Sep 16, 2024 10:45 AM AMBULATORY - MEDICINE [facility] Sep 27, 2024 02:20 PM AMBULATORY - SURGERY [facility]. Oscar JULIETA [facility] Oct 14, 2024 01:00 PM AMBULATORY - SURGERY . Oscar [facility] Oct 16, 2024 02:45 PM AMBULATORY - MEDICINE [facility] Oct 17, 2024 10:30 AM AMBULATORY - REHAB MEDICIN E [facility] Oct 25, 2024 02:00 PM AMBULATORY - SURGERY [facility] Oscar [facility] Nov 22, 2024 10:30 AM AMBULATORY - REHAB MEDICIN E [facility] Active, Pending, and Scheduled Orders This [...] Consult Order [facility] DENTAL SPEC Cons Residential [employer] Executive[employer] [facility] Lab Results: +/- 30 days of the encounter This section includes the Chemistry and Hematology Lab Results on record with ID for the patient. Radiology Reports and Pathology Reports are provided separately, in subsequent sections. Lab Results This section contains the Chemistry/Hematology Results that were resulted 30 days before or 30 daysafter the date of the Encounter. Date/Time Source Result Type Result - Unit Interpretation Reference Range Comment Jun 21, 2024 10:44 AM [facility] URINE DRUG SCREEN (STL) Specimen Type: URINE Comment: The cut-off value for this test was laboratory developed and its performance characteristics confirmed by the [facility] laboratory thru method comparison with reference laboratory and medication chart review. The laboratory is regulated under CLIA as qualified to perform high-complexity testing. This test is used for clinical purposes in conjunction with other laboratory tests. Ordering Provider: CASH WOLFE Report Released Date/Time: May 28, 2024 02:02 PM Reporting Lab: [facility] [address] [facility] [address] Performing Lab: [address] [address] ETHANOL Negative mg/dL 0-20 AMPHET/METHAMPHE TAMINE Negative ng/mL COCAINE METABOLITES Negative ng/mL BENZODIAZEPINES (STL) Negative ng/mL CANNABINOIDS Negative ng/mL METHADONE Negative ng/mL OPIATES POSITIVE ng/mL CREATININE URINE/OTHERS 67.2 mg/dL 63-166 OXYCODONE (LFQOA-HVQ-GL) Negative ng/mL BUPRENORPHINE (STL-PB-MA) Negative ng/mL FENTANYL (STL-PB) Negative ng/mL Jun 21, 2024 10:40 AM [facility] TSH (MA-PB) Specimen Type: SERUM No comment entered. Ordering Provider: ALFREDITO CHEN Report Released Date/Time: Jun 19, 2024 03:02 PM Reporting Lab: [facility] [address] [place] [phone] Performing Lab: [address] [phone] TSH 1.328 u[IU]/mL 0.47-5 Jun 21, 2024 10:40 AM [facility] HGA1C Specimen Type: BLOOD No comment entered. Ordering Provider: ALFREDITO CHEN Report Released Date/Time: Jun 19, 2024 03:02 PM Reporting Lab: [address] [phone] Performing Lab: [address] [address] HGA1C 6.4 H 4.0-6.0 Jun 21, 2024 10:40 AM [facility] URINALYSIS (STL-PB) Specimen Type: URINE No comment entered. Ordering Provider: ALFREDITO CHEN Report Released Date/Time: Jun 19, 2024 03:02 PM Reporting Lab: [address] [address] Performing Lab: [address] [phone] URINE COLOR Light-Yellow Yellow U.BILIRUBIN Negative mg/dL Negative U.PH 6.0 5.0-8.0 APPEARANCE Clear Clear U.NITRITE Negative mg/dL Negative URN.GLUCOSE 50 mg/dL H Negative URN.PROTEIN Negative mg/dL Neg ative-2 0 URN.UROBILINOGEN Normal mg/dL Normal URN.BLOOD Negative mg/dL Negat guerline-T race URN.KETONES Negative mg/dL Neg ative-T race URN.LEUK.EST. Negative mg/dL N egative-T race URN.SPECIFIC GRAVITY 1.015 1.005-1.02 9 Jun 21, 2024 10:40 AM [facility] CBC Specimen Type: BLOOD No comment entered. Ordering Provider: ALFREDITO CHEN Report Released Date/Time: Jun 19, 2024 03:02 PM Reporting Lab: [address] [phone] Performing Lab: [address] [address] WBC 7.7 10*3/uL 3.6-11.2 RBC 4.45 10*6/uL [...] 10*3/uL 0.00-0.[address]T FRACTION 4.9 1.0-7.0 Jun 21, 2024 10:40 AM [facility] COMPREHENSIVE METABOLIC PANEL Specimen Type: PLASMA Comment: No hemolysis noted. Ordering Provider: ALFREDITO CHEN Report Released Date/Time: Jun 19, 2024 03:02 PM Reporting Lab: [facility] [address] [facility] [phone] Performing Lab: [facility] [address] [facility] [phone] CREATININE 1.03 mg/dL 0.7-1.3 UREA NITROGEN 15.3 [...] U/L 8-40 EGFR (CKD-EPI 2020) 74.8 >60 Vital Signs: All taken on the encounter date This section contains inpatient and outpatient Vital Signs collected on the date of the Encounter. Date/Time Temperature Pulse Blood Pressure Respiratory Rate SP02 Pain Height Weight Body Mass Index Source Jun 19, 2024 01:51 PM 97.4 92 97/60 22 99 0 79 268 30 [facility] Social History: Smoking Status [...] ADMIT TOBACCO SCREEN NO [facility] Encounter Notes: All associated encounter notes This section contains the clinical notes associated to the Encounter. Date/Time Encounter Note(s) Provider Source Jun 19, 2024 02:18 PM [facility]: LOCAL TITLE: ENDOCRINOLOGY OUTPATIENT FOLLOW UP STL STANDARD TITLE: ENDOCRINOLOGY OUTPATIENT NOTE DATE OF NOTE: JUN 19, 2024@14:18 ENTRY DATE: JUN 19, 2024@14:19:21 AUTHOR: PACO ARREDONDO EXP COSIGNER: ALFREDITO CHEN URGENCY: STATUS: COMPLETED ENDOCRINOLOGY OUTPATIENT FOLLOW UP STL Has ADDENDA ENDOCRINOLOGY OUTPATIENT VISIT HPI: HUYEN NERI is a 78yo WHITE MALE who returns to clinic for f/u on here for obesity, T2DM, and hypogonadism management. Pt was hospitalized yesterday for a fall after lightheadedness 30 seconds after getting up from seated position, no head trauma, presetned to [facility]. CBC amd EKG checked at OSH but patient does not know what the results were. Reports lightheadness 1-2x per day. Better after d/basil from empaglaflozin 4 months ago but has steadily been worsening in intensity and frequency over time. Pt reports decreased energy levels since stopping testosterone. Rarely sexually active on testosterone now not at all. Plans to follow up with urology to reassess testosterone prescription. Denies hx of HF, OH, other heart problems. Denies hx of seizures. Allergies: SIMVASTATIN, ATORVASTATIN, ROSUVASTATIN, PRAVASTATIN Medications: Active Outpatient Medications (excluding Supplies): Issue Date Status Last Fill Active Outpatient Medications Refills Expiration 1) CHOLECALCIF 50MCG (D3-2,000UNIT) TAB ACTIVE Issu:02-20-24 Qty: 200 for 90 days Sig: TAKE TWO Refills: 3 Last:02-24-24 TABLETS BY MOUTH ONCE A DAY FOR Expr:02-20-25 VITAMIN D DEFICIENCY 2) CLOBETASOL PROPIONATE 0.05% TOP SOLN ACTIVE Issu:03-29-24 Qty: 50 for 30 days Sig: APPLY Refills: 9 Last:05-10-24 LIGHTLY TO AFFECTED AREA(S) ONCE A DAY Expr:03-30-25 NEEDED SCALP ITCHING (EXTERNAL USE ONLY) 3) CYANOCOBALAMIN 1000MCG TAB Qty: 100 for ACTIVE Issu:11-28-23 90 days Sig: TAKE ONE TABLET BY MOUTH Refills: 2 Last:02-16-24 ONCE A DAY FOR B12 SUPPLEMENTATION Expr:11-28-24 4) DICLOFENAC NA 1% TOP GEL Qty: 200 [...] PAIN 5) DULOXETINE HCL 60MG EC CAP Qty: 90 for ACTIVE Issu:08-18-23 90 days Sig: TAKE ONE CAPSULE BY Refills: 1 Last:03-09-24 MOUTH ONCE A DAY DO NOT ABRUPTLY Expr:08-18-24 DISCONTINUE MEDICATION. 6) EMPAGLIFLOZIN 25MG TAB Qty: 90 for 90 ACTIVE Issu:02-14-24 days Sig: TAKE ONE TABLET BY MOUTH Refills: 3 Last:02-16-24 ONCE A DAY FOR DIABETES Expr:02-14-25 7) HYDROCODONE 7.5/ACETAMINOPHEN 325MG TAB ACTIVE Issu:06-19-24 Qty: 60 for 30 days Sig: TAKE 1 Refills: 0 Last:06-19-24 TABLET BY MOUTH TWICE DAILY NEEDED Expr:07-19-24 FOR SEVERE PAIN CAUTION: DO NOT EXCEED 4000MG PER DAY ACETAMINOPHEN (APAP) FROM ALL MEDS. 8) KETOCONAZOLE 2% SHAMPOO Qty: 120 for 30 ACTIVE Issu:03-29-24 days Sig: USE SHAMPOO TO AFFECTED Refills: 9 Last:05-10-24 AREA(S) ONCE A DAY NEEDED FOR Expr:03-30-25 DANDRUFF *LET SIT FOR 3-5 MINUTES ON SCALP, THEN RINSE* (EXTERNAL USE ONLY) (SHAKE WELL) 9) LIDOCAINE 5% PATCH Qty: 90 for 30 days ACTIVE Issu:03-06-24 Sig: APPLY 1-3 PATCHES TO SKIN SITE Refills: 10 Last:03-26-24 ONCE A DAY NEEDED FOR PAIN APPLY Expr:03-07-25 PATCH AND PRESS FIRMLY FOR 10-15 SECONDS. KEEP ON FOR 12 HOURS THEN REMOVE PATCH FOR 12 HOURS. 10) PENICILLIN VK 500MG TAB Qty: 21 for 7 ACTIVE Issu:06-03-24 days Sig: TAKE ONE TABLET BY MOUTH Refills: 0 Last:06-03-24 THREE TIMES A DAY Expr:07-03-24 11) PETROLATUM (WHITE) OINT Qty: 390 for 30 ACTIVE Issu:03-29-24 days Sig: APPLY LIGHTLY TO AFFECTED Refills: 11 Last:03-29-24 AREA(S) TWICE A DAY FOR DRY SKIN Expr:03-30-25 12) POLYETHYLENE GLYCOL 3350 ORAL PWDR Qty: ACTIVE Issu:01-25-24 510 for 30 days Sig: MIX AND DRINK 1 Refills: 2 Last:05-18-24 CAPFUL BY MOUTH ONCE A DAY TO PREVENT Expr:01-25-25 CONSTIPATION. (MEASURE WITH CAP AND MIX IN 8 OZ OF WATER) 13) PRAVASTATIN NA 40MG TAB Qty: 45 for 90 ACTIVE Issu:04-03-24 days Sig: TAKE ONE-HALF TABLET BY Refills: 3 Last:04-06-24 MOUTH EVERY EVENING FOR HIGH Expr:04-04-25 CHOLESTEROL 14) PREGABALIN 75MG ORAL CAP Qty: 60 for 30 ACTIVE Issu:03-06-24 days Sig: TAKE ONE CAPSULE BY MOUTH Refills: 4 Last:06-03-24 TWICE A DAY *MAY CAUSE DROWSINESS* Expr:09-06-24 15) SEMAGLUTIDE 1MG/0.75ML INJ PEN 3ML Qty: ACTIVE Issu:03-20-24 4 for 28 days Sig: INJECT 1MG UNDER Refills: 5 Last:03-22-24 THE SKIN EVERY WEEK Expr:03-21-25 16) TAMSULOSIN HCL 0.4MG CAP Qty: 90 for 90 ACTIVE Issu:05-15-24 days Sig: TAKE ONE CAPSULE BY MOUTH Refills: 3 Last:05-16-24 EVERY EVENING APPROXIMATELY 30 MINUTES Expr:05-16-25 AFTER THE SAME MEAL EACH DAY (FOR PROSTATE) 17) TIZANIDINE HCL 4MG TAB Qty: 30 for 30 ACTIVE Issu:12-29-23 days Sig: TAKE ONE-HALF TABLET BY Refills: 8 Last:06-03-24 MOUTH TWICE DAILY NEEDED FOR Expr:12-29-24 SPASTICITY Start Date Active Non-VA Medications Refills Expiration 1) Non-VA CIPROFLOXACIN 0.3/DEXAM 0.1% OTIC ACTIVE SUSP Si DROPS TO AFFECTED EAR(S) TWICE A DAY 18 Total Medications 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 268.0 lbs. / 121.6 kg. on JUN 19, 2024@13:51:44 2. 249.9 lbs. / 113.4 kg. on APR 29, 2024@10:58:59 3. 273.5 lbs. / 124.1 kg. on JAN 24, 2024@15:21:08 4. 286.8 lbs. / 130.1 kg. on NOV 29, 2023@13:37:32 BMI: 30.3 GENERAL: No acute distress, Well developed, well nourished HEENT: EOMI, PERRL, sclera anicteric NECK: Supple, no cervical LAD, no thyromegaly CV: RRR, S1 S2, no S3, S4, murmur, no edema bilaterally RESP: regular, unlabored, clear to auscultation bilaterally GI: soft, non-tender, non-distended, +BS PSYCH: pleasant, appropriate LABS: Comprehensive Metabolic Panel Results: SODIUM 139 mEq/L 02/28/2024 13:06 POTASSIUM 4.7 mEq/L 02/28/2024 13:06 CHLORIDE 105 mEq/L 02/28/2024 13:06 UREA NITROGEN 17.1 mg/dL 02/28/2024 13:06 CREATININE 1.12 mg/dL 02/28/2024 13:06 CALCIUM 10.0 mg/dL 02/28/2024 13:06 PROTEIN 7.1 g/dL 02/28/2024 13:06 ALBUMIN 4.4 g/dL 02/28/2024 13:06 ALKALINE PHOSPHATASE 62 U/L 02/28/2024 13:06 ALT/SGPT 23 U/L 02/28/2024 13:06 AST/SGOT 20 U/L 02/28/2024 13:06 TOTAL BILIRUBIN 0.7 mg/dL 02/28/2024 13:06 CARBON DIOXIDE 24 mEq/L 02/28/2024 13:06 GLUCOSE 157 H mg/dL 02/28/2024 13:06 EGFR (CKD-EPI 2020) 67.7 02/28/2024 13:06 Hemoglobin: HGB 13.9 g/dL 02/28/2024 13:06 Hematocrit: HCT 41.6 % 02/28/2024 13:06 Vitamin D: VITAMIN D, 25-HYDROXY 55.7 ng/mL 05/24/2023 11:09 Phosphorus: No PHOSPHOROUS data found TSH: TSH 0.841 uIU/mL 02/28/2024 13:06 ____ Total T3: 0 ng/dl PSA: PROST. SPECIFIC AG.(PB-STL) 0.323 ng/mL 02/28/2024 13:06 ALBUMIN (PB-sendout) 4.5 g/dL 04/27/2023 08:07 TESTOSTERONE,BIOAVAILABLE (MA-PB-SO 82.6 ng/dL 04/27/2023 08:07 TESTOSTERONE,FREE (sendout) 40.2 pg/mL 04/27/2023 08:07 SEX HORMONE BINDING GLOBULIN 27 nmol/L 04/27/2023 08:07 TESTOSTERONE, TOTAL 273 ng/dL 04/27/2023 08:07 No PROLACTIN EO data found LH: ____ Glucose: GLUCOSE 157 H mg/dL 02/28/2024 13:06 Hemoglobin A1C: HGA1C 6.6 H % 02/28/2024 13:06 HGA1C 7.4 H % 11/28/2023 09:22 HGA1C 6.8 H % 05/24/2023 11:09 HGA1C 7.4 H % 02/10/2023 08:30 HGA1C 6.6 H % 07/25/2022 08:15 Microalb/creat ratio: No MICRAL/CREAT RATIO (STL) data found Lipid Panel: TRIGLYCERIDE 157 H mg/dL 05/17/2024 10:41 CHOLESTEROL 131 mg/dL 05/17/2024 10:41 HDL(New) 36 L mg/dL 05/17/2024 10:41 CALCULATED LDL 64 mg/dL 05/17/2024 10:41 Assessment and plan: #lightheadedness -likely 2/2 to orthostatic hypotension -1st fall with no head trauma, presented to ED yesterday -Repeat CBC, BMP monday -Await [facility] records -Consider cardiology referral for cardiac causes #hypogonadism -Labs suggestive of primary hypogonadism -stopped Androgel in 2022 due to prostate carcinoma -s/p radiation treatment, will f/u with urology to determine if trt can be resumed #T2DM #Obesity - continue metformin 1000 PO BID - continue Ozempic 0.5 mg - repeat A1c -counseled on diet and exercise #HLD - c/w pravastatin. RTC 6 months Paco Arredondo, PGY-1 Endocrine Patient was discussed with Dr. Chen /fransisco/ PACO ARREDONDO Resident Physician Signed: 06/19/2024 15:40 /fransisco/ Alfredito Chen MD,PhD Staff Physician, Endocrinology Cosigned: 06/19/2024 17:34 06/19/2024 ADDENDUM STATUS: COMPLETED I performed a history and physical exam of the patient and discussed management with the Resident. I reviewed the Resident's note and agree with the documented findings and plan of care. 1) Orthostasis Unclear what the evaluation was at outside ED. Not currently on any anti- hypertensive therapies. Empagliflozin previously discontinued - Labs now, assess for anemia, chemistry, thyroid - Recommend follow-up with primary care for follow-up of symptoms and OSH visit /fransisco/ Alfredito Chen MD,PhD Staff Physician, Endocrinology Signed: 06/19/2024 17:36 PACO ARREDONDO [facility]
--- OUTSIDE RECORDS SUMMARY | 2025-01-27 16:19 | XMS_ITS | Encounter Summary ---
Author Organization [facility] Address 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 de Phone Number INTERFACE SYSTEM Refer to clinic/hospital department [facility] CLIA# [id number] [address] [place] [address] * (ABNORMAL) HEMOGLOBIN AND HEMATOCRIT (09/11/2008 7:26 AM CDT) HEMATOCRIT 38.4(L) 40.0 - 48.0 % [facility] HEMOGLOBIN 12.8(L) 13.6 - 16.5 g/dL [facility] Blood specimen (specimen) 09/11/2008 7:26 AM CDT 09/11/2008 7:51 AM CDT Juan Ramos MD HEMATOLOGY ORDERABLES Final Resu lt Performing Organization Address City/[facility] de Phone Number INTERFACE SYSTEM Refer to clinic/hospital department [facility] CLIA# [id number] [address] [place] [address] * XR KNEE 1 OR 2 VW RIGHT (09/10/2008 10:50 AM CDT) Anatomical Region Laterality Modality Lower Extremity Other 09/10/2008 10:5 0 AM CDT Narrative 09/10/2008 11:07 AM CDT [address] [address] Admit Date: 09/10/2008 DUANE TORRES Sex: M Admit Prov: JUAN RAMOS Date: 1945 Primary Care Prov: PCP, UNKNOWN CMRN: [id number] Room: [place] [address] SSN: [id number] IMAGING SERVICES Ordering Prov: N/A Accession Number: [id number] Interpretation Right knee 2 views 09/10/2008 History: Postop. 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 No acute fracture is visualized. There is joint effusion. . Dictated by: NETTE MOODY 09/10/2008 11:05 Electronically signed by: NETTE MOODY 09/10/2008 11:05 Procedure Note Nette Moody - 09/10/[address] [address] Admit Date: 09/10/2008 DUANE TORRES Sex: M Admit Prov: JUAN RAMOS Date:1945 Primary Care Prov: PCP, UNKNOWN CMRN: [id number] Room: [place] [address] SSN: [id number] IMAGING SERVICES Ordering Prov: N/A Interpretation Right [...] AM CDT Narrative 09/04/2008 11:58 AM CDT [place] [address] [place], [place] [address] Admit Date: 08/22/2008 DUANE TORRES Sex: M Admit Prov: JUAN RAMOS Date: 1945 Primary Care Prov: PCP, UNKNOWN CMRN: [id number] Room: SURG-A SSN: [address] [place] [address] IMAGING SERVICES Ordering Prov: N/A Accession Number: [id number] Interpretation PA and lateral chest x-ray. History: [...] Procedure Note Sonny Rader MD - 09/04/[address] [address] Admit Date: 08/22/2008 DUANE TORRES Sex: M Admit Prov: JUAN RAMOS Date:1945 Primary Care Prov: PCP, UNKNOWN CMRN: [id number] Room: SURG-A SSN: [id number] IMAGING SERVICES Ordering Prov: N/A Interpretation PA [...] CDT) WBC 6.8 4.0 - 9.8 K/uL [facility] MCH 29.5 27.2 - 32.6 pg [facility] HEMATOCRIT 45.7 40.0 - 48.0 % [facility] RDW-STDEV 42.3 37.1 - 48.7 fL [facility] RBC 5.26 4.50 - 5.40 M/uL [facility] MCHC 33.9 31.5 - 35.5 % [facility] MCV 86.9 82.0 - 99.0 fL [facility] HEMOGLOBIN 15.5 13.6 - 16.5 g/dL [facility] RDW 13.4 11.5 - 14.5 % [facility] BASOPHILS 0 0 - 2 % [facility] BASOPHILS ABSOLUTE 0.01 0.00 - 0.20 K/uL [facility] MONOCYTES 8 3 - 13 % [facility] MONOCYTE ABSOLUTE 0.57 0.10 - 1.30 K/uL [facility] NEUTROPHILS 59 45 - 70 % [facility] NEUTROPHIL ABSOLUTE 3.95 1.90 - 7.00 K/uL [facility] EOSINOPHILS 2 0 - 7 % [facility] EOSINOPHIL ABSOLUTE 0.14 0.00 - 0.70 K/uL [facility] LYMPHOCYTES 31 16 - 45 % [facility] LYMPHOCYTE ABSOLUTE 2.08 0.70 - 4.50 K/uL [facility] MPV 12.8(H) 9.3 - 12.4 fL [facility] PLATELETS 83(L) 140 - 350 K/uL [facility] Comment: Platelets verified by smear review. Blood specimen (specimen) 09/04/2008 10:43 AM CDT 09/04/2008 12:01 PM CDT Juan Ramos MD HEMATOLOGY ORDERABLES Edited INTERFACE SYSTEM Refer to clinic/hospital department [facility] CLIA# [id number] [address] [place], [place] [address] * (ABNORMAL) COMPREHENSIVE METABOLIC PANEL (09/04/2008 10:43 AM CDT) GLUCOSE 122(H) 65 - 99 mg/dL [facility] AST 25 12 - 38 U/L [facility] BUN 14 6 - 20 mg/dL [facility] CALCIUM 9.8 8.6 - 10.2 mg/dL [facility] CHLORIDE 101 96 - 108 mmol/L [facility] ALBUMIN 4.6 3.4 - 4.8 g/dL [facility] CREATININE 0.91 0.67 - 1.17 mg/dL [facility] SODIUM 138 135 - 145 mmol/L [facility] ALT 45(H) 0 - 41 U/L [facility] ALKALINE PHOSPHATASE 63 40 - 129 U/L [facility] BILIRUBIN TOTAL 0.4 0.2 - 1.0 mg/dL [facility] CO2 26 22 - 30 mmol/L [facility] TOTAL PROTEIN 7.2 6.3 - 8.6 g/dL [facility] POTASSIUM 3.6 3.5 - 4.9 mmol/L [facility] GFR, >60 >=60 mL/min/1. 7 sq meter [facility] GFR >60 >=60 mL/min/1. 7 sq meter [facility] Comment: Modification of Diet in Renal Disease (MDRD) study formula. Estimated GFR rate interpretative information for both Americans and non- Americans is available on the [facility] Intranet at: [email or web address] Select: Lab Policies and Procedures Select: Reference Ranges - GFR Blood specimen (specimen) 09/04/2008 10:43 AM CDT 09/04/2008 12:01 PM CDT Juan Ramos MD CHEMISTRY ORDERABLES Edited INTERFACE SYSTEM Refer to clinic/hospital department [facility] CLIA# [id number] [address] [place] [address] * PT AND APTT (09/04/2008 10:43 AM CDT) PROTIME 13.3 12.7 - 15.1 Seconds [facility] INR 1.0 0.9 - 1.1 [facility] Comment: INR Therapeutic Range: Adult: 2.0 - 3.0 for pulmonary embolism or prophylaxis against venous thrombosis or systemic embolization. 2.0 - 3.0 for patients with tissue heart valves. 2.5 - 3.5 for patients with mechanical heart valves or post ND. Pediatric (12 years and under): 1.5 - 3.0 Although the target range in children is not well established, INR values of 1.5 - 3.0 are recommended for most patients. Higher values have been used in children with prosthetic cardiac valves and hereditary clotting disorders. [place] (<3 days) therapeutic ranges have not been established. PTT 27.8 24.4 - 36.4 Seconds [facility] Comment: PTT Therapeutic Range: Heparin Level PTT (seconds) <0.10 units/mL <53 0.10 - 0.30 units/mL 53 - 67 0.30 - 0.70 units/mL* 67 - 95* 0.70 - 1.00 units/mL 95 - 116 *corresponds to therapeutic range for unfractionated heparin Blood specimen (specimen) 09/04/2008 10:43 AM CDT 09/04/2008 12:01 PM CDT Result [facility] Juan Ramos MD HEMATOLOGY ORDERABLES Edited Performing Organization Address [facility] Phone Number INTERFACE SYSTEM Refer to clinic/hospital department [facility] CLIA# [id number] [address] [facility] [place] [address] * TYPE AND CROSSMATCH (09/04/2008 10:41 AM CDT) HISTORY CHECK No Historical ABO/Rh [facility] SPECIMEN LIFE 3 days from OR date [facility] ABO/RH TYPE O Positive [facility] ANTIBODY SCREEN Negative [facility] Blood specimen (specimen) 09/04/2008 10:41 AM CDT Juan Ramos MD BLOOD BANK ORDERABLES Edited Performing Organization Address [facility] Phone Number INTERFACE SYSTEM Refer to clinic/hospital department [facility] CLIA# [id number] [address] [place] [address] * URINALYSIS (09/04/2008 10:20 AM CDT) COLOR UA Yellow [facility] NITRITE UA Negative Negative [facility] UROBILINOGEN UA <1 <=1 mg/dL [facility] PH UA 6.0 5.0 - 8.0 [facility] KETONES UA Negative Negative [facility] CLARITY UA Clear Clear [facility] BILIRUBIN UA Negative Negative [facility] PROTEIN UA Negative Negative [facility] LEUKOCYTE ESTERASE UA Negative Negative [facility] SPECIFIC GRAVITY UA 1.016 1.001 - 1.035 [facility] GLUCOSE UA Negative Negative [facility] BLOOD UA Negative Negative [facility] 09/04/2008 10:2 0 AM CDT 09/04/2008 12:02 PM CDT Juan Ramos MD URINE ORDERABLES Final Result Performing Organization Address [facility] Phone Number INTERFACE SYSTEM Refer to clinic/hospital department [facility] CLIA# [id number] [address] [place] [address] * URINALYSIS WITH REFLEX CULTURE (09/04/2008 10:20 AM CDT) URINE CULTURE ORDER Not indicated [facility] Comment: Criteria for a reflex culture [...] URINE ORDERABLES Final Result Performing Organization Address [facility] Phone Number INTERFACE SYSTEM Refer to clinic/hospital department [facility] CLIA# [id number] [address] [place] [address] documented in this encounter Visit Diagnoses Diagnosis Osteoarthrosis, unspecified whether generalized or localized, unspecified site documented in this encounter Care Teams Mineral Engineer Relationship Specialty Start Date End Date Juan Ha MD PCP - General Internal Medicine 08/12/11 documented as of this encounter
--- OUTSIDE RECORDS SUMMARY | 2025-01-27 16:19 | XMS_ITS | Clinical Summary ---
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 Gender Identity Not on file Sexual Orientation [...] (#1) 2024 Medical Devices Implanted Type Area Punchboard Stuffer Device Identifier Shelf Expiration Date Model / Serial / Lot Art Surface Nxgn Cr-Flx [id number] 0 - [id number] Implanted:Qty : 1 on 01/31/2012 at [facility] Knee Left: Knee [employer] 12/13/2018 [id number] / / [id number] Russell Femoral Component Implanted:Qty : 1 on 01/31/2012 by Juan Burnett MD at [facility] Knee Left: Knee [employer] 09/12/2016 / / [id number] Comp Tib Nxgn Tm [id number] 2 - [id number] Implanted:Qty : 1 on 01/31/2012 at [facility] Knee Left: Knee [employer] 05/12/2020 [id number] / / [id number] Insurance [facility] [id number] MEDICARE PART A HOSPITAL ONLY Advance Directives For more information, please contact: [phone] * Full Code (Latest Code Status on File) Date Activated Date Inactivated Comments 01/31/2012 12:39 PM 02/03/2012 1:55 PM * Full Code Date Activated Date Inactivated Comments 01/31/2012 10:30 AM 01/31/2012 12:39 PM * Full Code Date Activated Date Inactivated Comments 01/31/2012 8:44 AM 01/31/2012 10:30 AM * Full Code Date Activated Date Inactivated Comments 01/31/2012 6:13 AM 01/31/2012 8:44 AM Care Teams Rubber Calender Helper Relationship Specialty Start Date End Date Juan Ha MD PCP - General Internal Medicine 08/12/11
--- OUTSIDE RECORDS SUMMARY | 2025-01-27 16:19 | XMS_ITS | Encounter Summary ---
Author Name [facility] Organization [facility] Address [address] [place] [address] Care Team Providers Care Painter And Decorator Name Role Phone SERGEI NORWOOD Primary Care [...] PART B May 13, 2014 PART B [id number] Matty NERI FATIMAH PATIENT MEDICARE ([place]NR) MEDICARE (M) PART B May 13, 2014 PART B [id number] Matty NERI FATIMAH PATIENT MEDICARE (WNR) MEDICARE (M) PART A Aug 13, 2011 PART A [id number] Matty NERI FATIMAH PATIENT MEDICARE (WNR) MEDICARE (M) PART A Aug 13, 2011 PART A [id number] Matty NERIIEL PATIENT Selected Encounter This section includes the information on record at [place] for the Encounter. Date/Time Encounter Type Encounter Description Reason Pro vider Source May 17, 2024 11:45 AM Outpatient Encounter COMMUNITY CARE CONSULT IHE Encounter Template Text not used by [facility] Plan of Treatment: Future Appointments (+ 6 months) and Future Tests (+/- 45 days) The Plan of Treatment section includes future care activities for the patient from all [place] treatmentven[facility] hospital. This section includes future appointments and future orders which are active, pending or scheduled. Future Appointments This section includes appointments that were scheduled to occur 6 months from the date of the Encounter, up to a maximum of 20 appointments. The data comes from all [place] treatment facilities. Appointment Date/Time Appointment Type Appointme nt Facility Name Jun 03, 2024 09:00 AM AMBULATORY - MEDICINE [facility] Jun 19, 2024 02:00 PM AMBULATORY - MEDICINE [facility] Jun 28, 2024 11:00 AM AMBULATORY [facility] Jul 01, 2024 09:00 AM AMBULATORY [facility] Jul 01, 2024 10:00 AM AMBULATORY [facility] Jul 04, 2024 08:00 AM [facility]AT[facility] Jul 08, 2024 09:30 AM AMBULATORY [facility] Jul 08, 2024 10:00 AM [facility]ULAT[facility]ONE [facility] Jul 23, 2024 10:45 AM AMBULATORY - MEDICINE [facility] Aug 07, 2024 01:40 PM AMBULATORY - MEDICINE [facility] Aug 08, 2024 01:00 PM AM[facility]ULATORY [facility]ONE [facility] Aug 14, 2024 03:15 PM AMBULATORY - MEDICINE [facility] Aug 20, 2024 02:00 PM AM[facility]ULATORY [facility] SURGERY [facility] Sep 03, 2024 10:45 AM AMBULATORY - MEDICINE [facility] Sep 09, 2024 10:00 AM AMBULATORY [facility] NONE [facility] Sep 16, 2024 10:45 AM AMBULATORY - MEDICINE [facility] Sep 27, 2024 02:20 PM AM[facility]ULATORY [facility]ERY [facility] Oct 14, 2024 01:00 PM AM[facility]ULATORY - SURGERY [facility] Oct 16, 2024 02:45 PM AMBULATORY - MEDICINE [facility] Oct 17, 2024 10:30 AM AMBULATORY - REHAB MEDICIN E [facility] Active, Pending, and Scheduled Orders This section includes a listing of several types of active, pending, and scheduled orders, including clinic medications orders, diagnostic test orders, procedure orders and consult orders; where the start date of the order is 45 days before the date of the Encounter or 45 days after the date of theEncounter. The data comes from all [place] treatment facilities. Test Date/Time Test Type Test Details Facility Name May 17, 2024 02:37 PM Consult Order COMMUNITY CARE-ST DENTAL SPEC Cons Cosmetic Sales Consultant's Choice [facility] Lab Results: +/- 30 days of the encounter This section includes the Chemistry and Hematology Lab Results on record with [place] for the patient. Radiology Reports and Pathology Reports are provided separately, in subsequent sections. Lab Results This section contains the Chemistry/Hematology Results that were resulted 30 days before or 30 daysafter the date of the Encounter. Date/Time Source Result Type Result - Unit Interpretation Reference Range Comment May 17, 2024 10:41 AM [facility] LIPID PANEL (STL) Specimen Type: PLASMA No comment entered. Ordering Provider: ERI NORWOOD Report Released Date/Time: Apr 29, 2024 12:16 PM Reporting Lab: [address] [address] Performing Lab: [address] [address] CHOLESTEROL 131 mg/dL 0-200 TRIGLYCERIDE 157 mg/dL H 0-150 CALCULATED LDL 64 mg/dL HDL(New) 36 mg/dL L >40 Social History: Smoking Status (Most current) and Tobacco Use (All prior to encounter date) This section includes the most current, and the historical, smoking and tobacco- related health factors from the [place] facility where the Encounter took place. Current Smoking Status This section includes the most current smoking, or tobacco-related health factor, from the [place] facility where the Encounter took place. Date/Time Current Smoking Status Comment Amol alston May 26, 2021 04:12 PM ORYX ADMIT TOBACCO SCREEN NO [facility] Encounter Notes: All associated encounter notes This section contains the clinical notes associated to the Encounter. Date/Time Encounter Note(s) Provider Source May 17, 2024 02:44 PM ADDENDUM: LOCAL TITLE: Addendum STANDARD TITLE: ADDENDUM DATE OF NOTE: MAY 17, 2024@14:44:17 ENTRY DATE: MAY 17, 2024@14:44:18 AUTHOR: PAUL HEARD EXP COSIGNER: URGENCY: STATUS: COMPLETED ST[facility] DENTAL SERVICE/COMMUNITY CARE RFS DETERMINATION The requested treatment: AUTHORIZED SUBMITTED. AUTHORIZED TREATMENT: #21,#29 D7953 Bone replacement per site #21,#29 D7250 Root removal surgival #21,#29 D7922 Dressings to aid in hemostasis D9222 Gen Anes first 15 min D9223 Gen anes add 15 min ACTION STEPS * RFS/ADA Dental Claim Form external records reviewed. * New consult(s) placed with corresponding SEOC(s). * to continue dental treatment with community provider. AUTHORIZED PROVIDER: Alli Foster Office:[facility] Address, [facility], State: [address] [facility] [address] [place] [address] COMMUNITY CARE COORDINATION NOTES Please continue 's care for authorized treatment. /fransisco/ PAUL HEARD DMD DENTIST Signed: 05/17/2024 14:44 Receipt Acknowledged By: 05/17/2024 14:51 /fransisco/ NORBERT CERON COMMUNITY CARE RN --- Original Document --- 05/17/24 COMMUNITY CARE-REQUEST FOR SERVICE NOTE STL: Request for Services (RFS) documentation has been sent for scanning to [employer] Community Care Consult: COMMUNITY CARE-SPEC Consult No: [id number] Date sent to scanning: May A Request for Service (RFS) form [id number] has been received which includes the following: Care Requested: #21,#29 D7953 Bone replacement per site #21,#29 D7250 Root removal surgival #21,#29 D7922 Dressings to aid in hemostasis D9222 Gen Anes first 15 min D9223 Gen anes add 15 min ICD-10 Dx code: K08.3 Date [facility] received request: May Date service required: May Requesting Community Provider Information: Name of Ordering Provider: Alli Foster Office:[facility] Address, City, State: [address] [facility] [address] [place] [address] /fransisco/ DELVIS SIMON Signed: 05/17/2024 11:49 Receipt Acknowledged By: 05/17/2024 14:41 /es/ PAUL HEARD DMD DENTIST PAUL HEARD [facility] May 17, 2024 11:45 AM NONVA NOTE: LOCAL TITLE: COMMUNITY CARE-REQUEST FOR SERVICE NOTE STL STANDARD TITLE: NONVA NOTE DATE OF NOTE: MAY 17, 2024@11:45 ENTRY DATE: MAY 17, 2024@11:45:31 AUTHOR: DELVIS SIMON EXP COSIGNER: URGENCY: STATUS: COMPLETED COMMUNITY CARE-REQUEST FOR SERVICE NOTE STL Has ADDENDA Request for Services (RFS) documentation has been sent for scanning to [facility] Community Care Consult: COMMUNITY CARE-SPEC Consult No: [id number] Date sent to scanning: May A Request for Service (RFS) form [id number] has been received which includes the following: Care Requested: #21,#29 D7953 Bone replacement per site #21,#29 D7250 Root removal surgival #21,#29 D7922 Dressings to aid in hemostasis D9222 Gen Anes first 15 min D9223 Gen anes add 15 min ICD-10 Dx code: K08.3 Date VA received request: May Date service required: May Requesting Community Provider Information: Name of Ordering Provider: Alli Foster Office:[facility] Address, [facility], [facility]: [address] [place] [address] [address] [place] [address] /fransisco/ DELVIS SIMON Signed: 05/17/2024 11:49 Receipt Acknowledged By: 05/17/2024 14:41 /es/ PAUL HEARD DMD DENTIST 05/17/2024 ADDENDUM STATUS: COMPLETED ST[facility] DENTAL SERVICE/COMMUNITY CARE RFS DETERMINATION The requested treatment: AUTHORIZED SUBMITTED. AUTHORIZED TREATMENT: #21,#29 D7953 Bone replacement per site #21,#29 D7250 Root removal surgival #21,#29 D7922 Dressings to aid in hemostasis D9222 Gen Anes first 15 min D9223 Gen anes add 15 min ACTION STEPS * RFS/ADA Dental Claim Form external records reviewed. * New consult(s) placed with corresponding SEOC(s). * [place] to continue dental treatment with community provider. AUTHORIZED PROVIDER: Alli Foster Office:[facility] Address, [facility], State: [address] [place] [address] [address] [place] [address] COMMUNITY CARE COORDINATION NOTES Please continue 's care for authorized treatment. /fransisco/ PAUL HEARD DMD DENTIST Signed: 05/17/2024 14:44 Receipt Acknowledged By: * AWAITING SIGNATURE * NORBERT CERON TONYA [facility]
--- OUTSIDE RECORDS SUMMARY | 2025-01-27 16:19 | XMS_ITS | Clinical Summary ---
Author Organization [facility] Address [address] [place] [id number] Care Team Providers Care Youth Support Worker Name Role Phone Morena Denny MD Primary Care Provider [phone] Social History Tobacco Use Types Packs/Day Years [...] patient's age to complete this topic Insurance [place] OFFICE OF COMMUNITY CARE [facility] Care Teams Youth Support Worker Relationship Specialty Start Date End Date Morena Denny MD [address] [address] PCP - General INTERNAL MEDICINE 11/13/20
[2025-01-27 16:42] VITALS: BP 137/65; PULSE 78; RESP 17; TEMP 36.9; O2SAT 98
== END 2025-01-27 16:44 | disposition home or self-care (01) ==
PROVIDERS: Emergency Provider Emergency Medicine
DX: S62.635B Displaced fracture of distal phalanx of left ring finger, initial encounter for open fracture (principal); S61.213A Laceration without foreign body of left middle finger without damage to nail, initial encounter; I10 Essential (primary) hypertension; I25.2 Old myocardial infarction; E78.5 Hyperlipidemia, unspecified; E11.42 Type 2 diabetes mellitus with diabetic polyneuropathy; H81.09 Meniere's disease, unspecified ear; D69.3 Immune thrombocytopenic purpura; N40.0 Benign prostatic hyperplasia without lower urinary tract symptoms; G47.33 Obstructive sleep apnea (adult) (pediatric); M19.90 Unspecified osteoarthritis, unspecified site; Z96.653 Presence of artificial knee joint, bilateral; Z87.891 Personal history of nicotine dependence; Z85.828 Personal history of other malignant neoplasm of skin; Z79.899 Other long term (current) drug therapy; W29.8XXA Contact with other powered hand tools and household machinery, initial encounter
CPT/HCPCS: 12001; 29130; 73140; 99284; A9270

== ENCOUNTER 2025-05-31 00:33 | Emergency (ER) | payer MEDICARE, OTHER, SELFPAY ==
--- NOTE | ~2025-05-31 | CT_ITS ---
CT Facial Bones and Cervical Spine Clinical Indication: Status post fall Technique: Contiguous axial scans were obtained through the facial bones and cervical spine followed by coronal and sagittal reconstructions. Dose reduction technique was used on this scan by utilizing automated exposure control and iterative reconstruction technique. The dose-length product (DLP) was 681.00 mGy-cm. Findings: CT facial bones: No fractures are identified. The visualized paranasal sinuses are clear. Intraorbita l soft tissues appear normal. CT cervical spine: No fractures or subluxation there is advanced degenerative disc narrowing at C5-C 6 and C6-C7. There is bilateral facet arthropathy C3-C4 with bilateral neural foraminal narrowing. Th ere is disc bulge with mild to moderate canal stenosis. There is right facet arthropathy at C4-C5, pr obable minimal right neural foraminal narrowing. There is disc osteophyte complex at C5-C6, with adva nced right neural foraminal narrowing. There is disc osteophyte complex at C6-C7 with probable minima l bilateral neural foraminal narrowing. No prevertebral soft tissue swelling. Impression: No fracture is seen in the facial bones. No fracture or subluxation of the cervical spine. Degenerative spondylosis, as above. Reviewed, dictated and finalized at location . Impression: No fracture is seen in the facial bones. No fracture or subluxation of the cervical spine. Degenerative spondylosis, as above.
--- NOTE | ~2025-05-31 | CT_ITS ---
Non-contrast Head CT History: Status post fall COMPARISON: 02/12/2022 Technique: Axial non-contrast imaging of the brain was performed. Dose reduction technique was used on this scan by utilizing automated exposure control and iterative reconstruction technique. The dose -length product (DLP) was 681.00 mGy-cm. Findings: There is no evidence of intracranial hemorrhage, mass lesion, or acute infarct. Brain par enchyma appears normal. The ventricles and subarachnoid spaces are normal in size. The calvarium ap pears normal. The visualized paranasal sinuses and mastoid air cells are clear. Impression: No significant abnormality seen. Reviewed, dictated and finalized at location . Impression: No significant abnormality seen.
--- NOTE | ~2025-05-31 | XR_ITS ---
XR shoulder LT min 2V 05/31/2025 01:59 Indication: Left shoulder pain after fall Procedure: 3 views left shoulder Comparison: No prior studies for comparison. Findings: There is some minimally displaced extra-articular fracture distal aspect of the left clavic le. Acromioclavicular joint intact. 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 Impression: 1: Mildly displaced extra-articular fracture distal aspect of the left clavicle. Reviewed, dictated and finalized at location A. Impression: 1: Mildly displaced extra-articular fracture distal aspect of the left clavicle .
--- NOTE | ~2025-05-31 | CT_ITS ---
Noncontrast CT scan of the thoracic spine CLINICAL HISTORY: Back pain, status post fall TECHNIQUE: Axial noncontrast imaging of the thoracic spine was performed. Sagittal and coronal reform atted images were constructed. Dose reduction technique was used on this scan by utilizing automated exposure control and iterative reconstruction technique. The dose-length product (DLP) was 681.00 mGy -cm. FINDINGS: There is mild compression for T7, likely chronic. No other fracture or sublocation seen. Th ere is moderate degenerative disc narrowing throughout the thoracic spine. No significant disc bulge or herniation clearly identified. No definite canal stenosis or cord compre ssion. Neural foramina appear preserved throughout the thoracic spine. Paravertebral soft tissues are unremarkable. Impression: No definite acute abnormality. Probably chronic mild compression deformity of T7. Reviewed, dictated and finalized at [facility]. Impression: No definite acute abnormality. Probably chronic mild compression deformity of T 7.
--- NOTE | ~2025-05-31 | CT_ITS ---
Noncontrast CT scan of the lumbar spine CLINICAL HISTORY: Back pain, status post fall TECHNIQUE: Axial noncontrast imaging of the lumbar spine was performed. Sagittal and coronal reformat jordan images were constructed. Dose reduction technique was used on this scan by utilizing automated ex posure control and iterative reconstruction technique. The dose-length product (DLP) was 681.00 mGy-c m. FINDINGS: No acute fracture or subluxation seen in the lumbar spine. Vertebral bodies maintain normal height and alignment. At L1-L2, there is no disc bulge or herniation. No spinal canal stenosis or neural foraminal narrowin g. At L2-L3, there is disc bulge and mild facet hypertrophy. No spinal canal stenosis. There is mild jacob ateral neural foraminal narrowing. At L3-L4, there is disc bulge and advanced facet arthropathy. There is moderate spinal canal stenosis /thecal sac compression. There is moderate right neural foraminal narrowing. Left neural foramen pres erved. At L4-L5, there is advanced degenerative distended. There is no spinal canal stenosis. There is moder ate to advanced bilateral neural foraminal narrowing. At L5-S1, there is no disc bulge or herniation. No spinal canal stenosis or neural foraminal narrowin g. Paravertebral soft tissues are unremarkable. Impression: No acute abnormality. Degenerative changes, as detailed above. Reviewed, dictated and finalized at [facility]. Impression: No acute abnormality. Degenerative changes, as detailed above.
--- NOTE | ~2025-05-31 | CT_ITS ---
Clinical Indication: Trauma CT Scan of the Chest, Abdomen, and Pelvis with Contrast: Technique: Contiguous sections were acquired throughout the chest, abdomen, and pelvis after intraven ous administration of 100 cc of Omnipaque 350. Dose reduction technique was used on this scan by onur gutierrez automated exposure control and iterative reconstruction technique. The dose-length product (DL P) was 1531.33 mGy-cm. Findings: There is no evidence of any significant mediastinal, hilar or axillary lymphadenopathy. The mediastin al soft tissues appear normal. There is no evidence of pleural or pericardial effusion. The lungs are clear. No pulmonary nodules or infiltrates are noted. The liver, pancreas, gallbladder, adrenals and kidneys are within normal limits. 2.8 cm densely calci fied splenic lesion present superiorly (axial image 1 6). There are atherosclerotic calcifications of the aorta. No lymphadenopathy. No bowel obstruction or bowel wall thickening. There is no evidence to suggest acute appendicitis. Urinary bladder is unremarkable. No pelvic mass seen. No ascites. Impression: No acute abnormality. 2.8 cm densely calcified splenic lesion, indeterminate, though likely benign. Reviewed, dictated and finalized at [facility]. Impression: No acute abnormality. 2.8 cm densely calcified splenic lesion, indeterminate, though likely benign.
[2025-05-31 00:26] VITALS: PULSE 73; RESP 21; TEMP 36.7; O2SAT 98
[2025-05-31 00:33] VITALS: BP 126/65
--- OUTSIDE RECORDS SUMMARY | 2025-05-31 01:20 | XMS_ITS | Clinical Summary ---
Author Organization [facility] [employer] Address [address] [facility] [place] [address] Care Team Providers Care Inner Tube Inserter Name Role Phone Juan Ha MD Primary Care Provider [phone] Michelle Barbosa RN Unavailable Unavailable Juan Joshi I OD Unavailable [phone] Unavailab le Source Comments [facility],non-owned Affiliates and Associated Physician Practices is amultiple site organization consisting of ambulatory clinics and hospital sitesin [place], [place], [place] and [place]. This disclosure is being madepursuant to the Care Everywhere program and may not contain all information available regarding this patient. Last updated 18.[facility] Allergies Active Allergy Reactions Criticality Noted Date Comments Atorvastatin Other 02/18/2021 Rosuvastatin Other 02/26/2021 Simvastatin Other Medium 07/29/2019 Medications * Be aware that medications may not be up to date on this document. Alwaysverify current medications with the patient. DULoxetine (CYMBALTA) 20 MG capsule Take 60 mg by mouth DAILY 01/19/20 18 Active triamterene-hy droCHLOROthiaz yanely (MAXZIDE-25) 37.5-25 MG tablet Take 1 tablet by mouth DAILY. 90 tablet 3 02/07/20 18 Active metFORMIN (GLUCOPHAGE) 500 MG tablet Take 2 tablets by mouth 2 times daily with morning and evening meal 60 tablet 3 05/31/20 18 Active tamsulosin (FLOMAX) 0.4 MG capsule Take 1 capsule by mouth once daily At the same time every day after a meal. 1 capsule 12/03/19 20 Active atorvastatin (LIPITOR) 20 MG tablet Take 10 mg by mouth once daily 1 tablet 07/14/20 20 Active polyethylene glycol 3350 (MIRALAX) 17 GM/SCOOP powder Take 17 g by mouth A ctive methocarbamol (ROBAXIN) 500 MG tablet TAKE 1 TABLET BY MOUTH EVERY 6 HOURS NEEDED FOR MUSCLE SPASM 05/17/20 21 Active HYDROcodone-ac etaminophen (NORCO) 7.5-325 MG tablet Take 1 tablet [...] CAPSULE THREE TIMES A DAY FOR PAIN 12/08/19 22 Active sildenafil (VIAGRA) 100 MG tablet TAKE ONE TABLET BY MOUTH EVERY WEEK NEEDED FOR ERECTILE DYSFUNCTION (TAKE 60 MINUTES PRIOR TO SEXUAL ACTIVITY) - LIMIT 4 DOSES PER 30 DAYS 10/27/20 21 Active Cholecalcifero l 50 MCG (2000 UT) TAKE ONE TABLET BY MOUTH ONCE A DAY FOR VITAMIN D DEFICIENCY. 04/23/20 21 Active Cyanocobalamin 1000 MCG TAKE ONE TABLET BY MOUTH ONCE A DAY FOR B12 SUPPLEMENTATION 09/13/20 21 Active diclofenac sodium (VOLTAREN) 1 % gel [...] OVER HANDS AND SHOULDERS NEEDED FOR PAIN 10/29/20 21 Active testosterone (ANDROGEL) 20.25 MG/ACT (1.62%) gel APPLY 3 PUMPS (60.75MG) TO AFFECTED AREA(S) ONCE A DAY (APPLY TO CLEAN DRY SKIN OF UPPER ARMS OR UPPER SHOULDER ONLY) FOR HORMONE SUPPLEMENTATION. 10/27/20 21 Active acetaminophen (TYLENOL) 325 MG tablet Take 325 mg by mouth every 4 hours as needed for Fever or Pain Maximum allowable Acetaminophen amount = 4 Grams (4000 mg) / 24 hours. Active oxyCODONE, immediate release, (ROXICODONE) 5 MG tablet Take 1 (one) tablet by mouth every 6 hours as needed for Pain 10 tablet 01/19/20 22 Active docusate sodium (COLACE) 100 MG capsule Take 1 (one) capsule by mouth 2 times daily as needed for Constipation (relief of difficult bowel movements) 28 capsule 01/19/20 22 Active Nirmatrelvir&R itonavir 300/100 20 x 150 MG & 10 x 100MG Oral Tablet Therapy Pack (Paxlovid)Laney cations:COVID- 19 virus infection Take two 150mg tablets (300mg) of nirmatrelvir and one tablet (100mg) of ritonavir together as a single dose by mouth twice daily for 5 days. Do not crush, chew, or cut in half. 30 tablet 07/02/20 22 Active Active Problems Problem Noted Date Diagnosed Date Umbilical hernia without obstruction and without gangrene 12/14/2021 Elevated PSA 12/14/2021 Testosterone deficiency in male 01/12/2021 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 Type 2 diabetes mellitus without complications 1 11/18/2016 Overview (02/12/2025): IMO 02/12/2025 Slow transit constipation 09/18/2017 Pure hypercholesterolemia 09/18/2017 Other chronic pain 09/18/2017 Primary osteoarthritis of left knee 09/18/2017 Idiopathic peripheral neuropathy 09/18/2017 Overview (01/14/2019): Overview: Neurologist at [facility] Neurologist at [facility] Meniere's disease 01/20/2016 Venous insufficiency (chronic) (peripheral) 07/2016 Obstructive sleep apnea 07/23/2013 Fatty (change of) liver, not elsewhere classifie d 07/23/2013 Actinic keratosis 03/08/2012 Nevus, non-neoplastic 03/08/2012 Other seborrheic keratosis 03/08/2012 Benign lipomatous neoplasm 04/27/2009 Immunizations Immunization Administration Dates Next Due INFLUENZA VACCINE, TRIV. (AF LURIA, FLUZONE TRIVALENT; 6MO+) (IIV3) 08/13/2012 Covid [employer] primary monoval ent 12+ yr 0.3mL Purple cap 12/28/2020,12/06/2020 DT (AGE 0-7) 10/13/2002 FLU VACCINE QUAD IIV4 SPLIT 0.25 ML IM 09/12/2019 INFLUENZA A P6Y4-31 VACCINE 10/26/2009 INFLUENZA VACCINE 10/16/2020, 8,08/03/2017,2010,10/04/2010,11/13/2006 INFLUENZA [...] at Not on file Legal Sex Male 5:20 PM TOURIST CABIN KEEPER Gender Identity Not on file Sexual Orientation Not on file Last Filed Vital Signs Vital Sign Reading Time Taken Comments Blood Pressure 148/78 01/18/2022 1:00 PM TOURIST CABIN KEEPER Pulse 75 01/18/2022 1:00 PM TOURIST CABIN KEEPER Temperature 36.8 C (98.3 F) 01/18/2022 11:25 AM TOURIST CABIN KEEPER Respiratory Rate 6 01/18/2022 1:00 PM TOURIST CABIN KEEPER Oxygen Saturation 97% 01/18/2022 1:00 PM TOURIST CABIN KEEPER Inhaled Oxygen Concentration - - Weight 129.7 kg (286 lb) 01/18/2022 8:05 AM TOURIST CABIN KEEPER Height 200.7 cm (6' 7) 01/18/2022 8:05 AM TOURIST CABIN KEEPER Body Mass Index 32.22 01/18/2022 8:05 AM TOURIST CABIN KEEPER Plan of Treatment Health Maintenance Due Date [...] COVID-19 VACCINE ( season) 2024 12/28/2020, 12/06/2020 DEPRESSION SCREENING 11/13/2024 DIABETES - URINE PROTEIN SCREENING 11/13/2024 01/07/2021, 01/11/2019, 09/18/2018, Additional history exists INFLUENZA VACCINE (#1) 2025 , 09/12/2019, 09/12/2019, Additional history exists DTAP/TDAP/TD VACCINES (4 - [...] this topic Medical Devices Implanted Type Area Surface Mount Technology Operator Device Identifier Shelf Expiration Date Model / Serial / Lot Mesh Srg Ventralight St Sepra 6x4in Implanted:Qty: 1 on 01/18/2022 by Demetrius Saini MD at [facility] N/A: [employer] 08/10/2023 [id number] / / [id number] Sys Fx 37cm Cpsr Str Ss Peek Perm Hndl Implanted:Qty: 1 on 01/18/2022 by Demetrius Saini MD at [facility] N/A: [employer] 09/09/2023 [id number] / / [id number] Procedures Procedure Name Priority Date/Time Associated Diagnosis Comments COMPREHENSIVE METABOLIC PANEL Routine 12/30/2021 9:33 AM TOURIST CABIN KEEPER Pure hypercholesterolemia MICROALB/CREAT RATIO URINE RANDOM PANEL Routine 01/07/2021 11:21 AM TOURIST CABIN KEEPER Type 2 diabetes mellitus without complication, without long-term current use of insulin HEMOGLOBIN A1C Routine 01/07/2021 11:21 AM TOURIST CABIN KEEPER Type 2 diabetes mellitus without complication, without long-term current use of insulin HEPATITIS C RIBA CONFIRMATION Routine 09/26/2011 5:03 PM TOURIST CABIN KEEPER from Last 3 Months or Most Recently Relevant to Health Maintenance Results * (ABNORMAL) COMPREHENSIVE METABOLIC PANEL (12/30/2021 9:33 AM TOURIST CABIN KEEPER) Glucose 258(H) 65 - 99 mg/dL [facility] INSURANCE BILL BUN 18 8 - 27 mg/dL [facility] INSURANCE BILL Creatinine 1.16 0.76 - 1.27 mg/dL [facility] INSURANCE BILL eGFR by MDRD 61 >59 mL/min/1. 73 [facility] INSURANCE BILL eGFR by MDRD 71 >59 mL/min/1. 73 [facility] INSURANCE BILL Comment: In accordance with recommendations from the NKF-ASN Task force, [facility] the [facility] [...] BLOOD SPECIMEN / Unknown 12/30/2021 9:33 AM TOURIST CABIN KEEPER 12/30/2021 Narrative Resulting Agency Comment Lab Testing performed at: [address] [id number] us Juan Ha MD LAB - CHEMISTRY ORDERABLES Fin al Result [facility] INSURANCE BILL [address] [place] [address] * MICROALB/CREAT RATIO URINE RANDOM PANEL (01/07/2021 11:21 AM TOURIST CABIN KEEPER) Creatinine Urine 171.4 Not Estab. mg/dL [facility] INSURANCE BILL Microalbumin Urine 17.1 Not Estab. ug/mL [facility] INSURANCE BILL Microalbumin/Crea tinine Ratio 10 0 - 29 mg/g creat [facility] INSURANCE BILL Comment: Normal: 0 - 29 Moderately increased: 30 - 300 Severely increased: >300 FASTING Urine URINE SPECIMEN OBTAINED BY CLEAN CATCH PROCEDURE / Unknown 01/07/2021 11:21 AM TOURIST CABIN KEEPER 01/07/2021 Narrative [facility] INSURANCE BILL - 01/08/2021 3:08 PM TOURIST CABIN KEEPER A courtesy copy of this report has been sent to the patient Resulting Agency Comment Lab Testing performed at: [facility] [id number] Jaun Ha MD LAB - URINE CHEMISTRY ORDERABL ES Final Result Performing Organization Address [facility] de Phone Number [facility] INSURANCE BILL [address] [place] [address] * (ABNORMAL) HEMOGLOBIN A1C (01/07/2021 11:21 AM TOURIST CABIN KEEPER) Hemoglobin A1c 6.5(H) 4.8 - 5.6 % [facility] INSURANCE BILL Comment: . Prediabetes: 5.7 - 6.4 Diabetes: >6.4 Glycemic control for adults with diabetes: <7.0 FASTING Blood BLOOD SPECIMEN / Unknown 01/07/2021 11:21 AM TOURIST CABIN KEEPER 01/07/2021 Narrative Resulting Agency Comment Lab Testing performed at: [facility] [id number] Juan Ha MD LAB - CHEMISTRY ORDERABLES Fin al Result Performing Organization Address City/[facility] Co de Phone Number [facility] INSURANCE BILL [address] [place] [address] * HEPATITIS C RIBA CONFIRMATION (09/26/2011 5:03 PM TOURIST CABIN KEEPER) Hepatitis C Antibody <0.1 0.0 - 0.9 s/co ratio [facility] Comment: Negative Not infected with HCV, unless recent infection is suspected or other evidence exists to indicate HCV infection. 09/26/2011 5:03 PM TOURIST CABIN KEEPER 09/26/2011 10:05 PM TOURIST CABIN KEEPER Narrative [facility] ([facility]) - 09/27/2011 7:28 AM TOURIST CABIN KEEPER [facility]formed at: [facility] [address] [place], [place] [id number] Cigar Packer And Shader: Laura Ibanez MD, Phone: [phone] us Historical Provider LAB - SEROLOGY ORDERABLES Final Result [facility] ([facility] [address] [place] [address], [facility] from Last 3 Months or Most Recently Relevant to Health Maintenance Insurance MEDICARE [facility] [place] [address] [facility] MEDICARE Care Teams Inner Tube Inserter Relationship Specialty Start Date End Date Juan Ha MD PCP - General 07/04/16 Michelle Barbosa, system specialistUpholsterer [employer]ine [employer]se 02/26/19 Juan Joshi I, DAPHNE [address] DE[place] [id number] Purchasing Internship [employer] 12/21/21 [facility] S[facility] Jimenez [address] [place] [address] 12/21/21
--- OUTSIDE RECORDS SUMMARY | 2025-05-31 01:20 | XMS_ITS | Encounter Summary ---
Author Organization [facility] Address 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 SSN: [id number] IMAGING SERVICES Ordering Prov: JUAN RAMOS Accession Number: [id number] Interpretation This procedure was performed at the request of the orthopedic physician. Please see the orthopedic physician s report for details, which can be found in the patient s medical record. Dictated by: RADIOLOGY, DEPARTMENT O Electronically signed by: RADIOLOGY, DEPARTMENT 04/27/2009 17:32 Transcribed: 04/27/2009 15:44 AMK Procedure Note Radiology, Radiologist - 04/27/2009 [facility] [address] [place], [place] [address] Admit Date: 03/30/2009 TORRES DUANE Oscar Sex: M Admit Prov: JUAN RAMOS Date:1945 Primary Care Prov: CMRN: [id number] Room: [facility] SSN: [id number] IMAGING SERVICES Ordering Prov: JUAN RAMOS Interpretation This procedure was performed at the request of the orthopedicphysician. Please see the orthopedic physician s report for details, which canbe found in the patient s medical record. Dictated by: RADIOLOGY, DEPARTMENT O Electronically signed by: RADIOLOGY, DEPARTMENT 04/27/2009 17:32 Transcribed: 04/27/2009 15:44 AMK Juan aRmos MD DIAGNOSTIC IMAGING ORDERABLES Fi nal Result documented in this encounter Visit Diagnoses Not on filedocumented in this encounter Care Teams Executive Consultant Relationship Specialty Start Date End Date Juan Ha MD PCP - General Internal Medicine 08/12/11 documented as of this encounter
--- OUTSIDE RECORDS SUMMARY | 2025-05-31 01:20 | XMS_ITS | Encounter Summary ---
Author Organization [facility] Address [address] [place] [address] Care Team Providers Care Chief Executive Or Managing Director Name Role Phone Juan Ha MD Primary Care Provider [phone] Encounter Details Date Type Department Care Team (Latest Contact Info) Description 10/22/2007 Outpatient Historical HIS LAB, [facility] Juan Burnett MD NO ADDRESS ON FILE Pain in Joint, Lower Leg Social History Tobacco Use Types Packs/Day Years Used Date Smoking Tobacco: Never Assessed Sex and Gender Information Value Date Recorded Sex Assigned at Not on file Legal Sex Male 5:29 AM SPECIAL TRACKWORK BLACKSMITH Gender Identity Not on file Sexual Orientation Not on file documented as of this encounter Plan of Treatment Not on file documented as of this encounter Procedures Procedure Name Priority Date/Time Associated Diagnosis Comments SOURCE, FLUID Routine 10/22/2007 12:15 PM SPECIAL TRACKWORK BLACKSMITH SYNOVIAL FLUID CRYSTAL Routine 10/22/2007 12:15 PM SPECIAL TRACKWORK BLACKSMITH documented in this encounter Results * SOURCE, FLUID (10/22/2007 12:15 PM SPECIAL TRACKWORK BLACKSMITH) SOURCE FLUID Knee, Right INTERFACE SYSTEM 10/22/2007 12:1 5 PM SPECIAL TRACKWORK BLACKSMITH us Juan Burnett MD HEMATOLOGY ORDERABLES Edited INTERFACE SYSTEM Refer to clinic/hospital department * (ABNORMAL) SYNOVIAL FLUID CRYSTAL (10/22/2007 12:15 PM SPECIAL TRACKWORK BLACKSMITH) JOINT FLD CRYSTAL QTY Few(A) Negative INTERFACE SYSTEM JOINT FLD CRYSTAL Unidentifiable INTERFACE SYSTEM Comment:probably basic Calci um phosphate CRYSTALS INTERPRETED BY: El Hill MD INTERFACE SYSTEM 10/22/2007 12:1 5 PM SPECIAL TRACKWORK BLACKSMITH us Juan Burnett MD BODY FLUIDS AND STOOLS Edited INTERFACE SYSTEM Refer to clinic/hospital department documented in this encounter Visit Diagnoses Diagnosis Pain in joint, lower leg documented in this encounter Care Teams Chief Executive Or Managing Director Relationship Specialty Start Date End Date Juan Ha MD PCP - General Internal Medicine 08/12/11 documented as of this encounter
--- OUTSIDE RECORDS SUMMARY | 2025-05-31 01:20 | XMS_ITS | Clinical Summary ---
Author Organization [facility] Address [address] [place] [address] Phone Care Team Providers Care Electronic Security Specialist Name Role Phone Juan Ha MD Primary Care Provider [phone] Allergies No known active allergies Medications hydrochlorothiaz [...] on file Legal Sex Male 5:29 AM RELAY TESTER Gender Identity Not on file Sexual Orientation [...] 9:37 AM CDT Height 200.7 cm (6' 7) 01/23/2012 9:37 AM CDT Body Mass Index 37.63 01/23/2012 9:37 AM CDT Plan of Treatment Health Maintenance Due Date Last Done Comments DTAP/TDAP/TD VACCINES (1 - Tdap) 1965 PNEUMOCOCCAL VACCINE 50+ YEARS (1 of 1 - PCV) 08/28/19 96 ZOSTER VACCINE (1 of 2) 1996 RSV VACCINE (60+ or ) (1 - 1-dose 75+ series) 2021 INFLUENZA VACCINE (#1) 2025 Medical Devices Implanted Type Area Balance Wheel Hand Filer Device Identifier Shelf Expiration Date Model / Serial / Lot Art Surface Nxgn Cr-Flx [id number] 0 - [id number] Implanted:Qty : 1 on 01/31/2012 at [facility] Knee Left: Knee [employer] 12/13/2018 [id number] / / [id number] Russell Femoral Component Implanted:Qty : 1 on 01/31/2012 by Juan Burnett MD at [facility] Knee Left: Knee [employer] 09/12/2016 / / [id number] Comp Tib Nxgn Tm [id number] 2 - [id number] Implanted:Qty : 1 on 01/31/2012 at [facility] Knee Left: Knee [employer] 05/12/2020 [id number] / / [id number] Insurance [facility] [id number] MEDICARE PART A HOSPITAL ONLY Advance Directives For more information, please contact: [phone] * Full Code (Latest Code Status on File) Date Activated Date Inactivated Comments 01/31/2012 12:39 PM 02/03/2012 1:55 PM * Full Code Date Activated Date Inactivated Comments 01/31/2012 10:30 AM 01/31/2012 12:39 PM * Full Code Date Activated Date Inactivated Comments 01/31/2012 8:44 AM 01/31/2012 10:30 AM * Full Code Date Activated Date Inactivated Comments 01/31/2012 6:13 AM 01/31/2012 8:44 AM Care Teams Electronic Security Specialist Relationship Specialty Start Date End Date Juan Ha MD PCP - General Internal Medicine 08/12/11
--- OUTSIDE RECORDS SUMMARY | 2025-05-31 01:20 | XMS_ITS | Encounter Summary ---
Author Organization [facility] Address 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
--- OUTSIDE RECORDS SUMMARY | 2025-05-31 01:20 | XMS_ITS | Encounter Summary ---
Author Organization [facility] Address [address] [place] [address] Care Team Providers Care Route Salesperson Name Role Phone Juan Ha MD Primary Care Provider Michelle Barbosa RN Unavailable Unavailable Juan Joshi I OD Unavailable [facility] Unavailab le Encounter Details Date Type Department Care Team (Late st Contact Info) Description 12/23/2021 Telephone [facility] [address] [place] [address] Demetrius Saini MD [address] [facility] [address] [place] [address] Social History Tobacco Use Types Packs/Day Years Used Date Smoking Tobacco: Never Smokeless Tobacco: Never Alcohol Use Standard Drinks/Week Comments Yes 0 (1 standard drink = 0.6 oz pur e alcohol) PHQ-2 Answer Date Recorded PHQ2 TOTAL SCORE 0 12/14/2021 Sex and Gender Information Value Date Recorded Sex Assigned at Not on file Legal Sex Male 5:20 PM SCHEDULE MAKER Gender Identity Not on file Sexual Orientation Not on file documented as of this encounter Plan of Treatment Not on file documented as of this encounter Visit Diagnoses Not on filedocumented in this encounter Care Teams Route Salesperson Relationship Specialty Start Date End Date Juan Ha MD PCP - General 07/04/16 Michelle Barbosa, diamond die drillerHumanities And Languages Professor 02/26/19 Juan Joshi I, OD [address] [facility] [place] [address] Underwriting Operations Manager Low Communication Consultant 12/21/21 [facility], Sivan Jimenez [address] [place] [address] 12/21/21 documented as of this encounter
--- OUTSIDE RECORDS SUMMARY | 2025-05-31 01:20 | XMS_ITS | Clinical Summary ---
Author Organization [facility] Address [address] [place] [address] Care Team Providers Care Record Clerk Name Role Phone Morena Denny MD Primary Care Provider [phone] Social History Tobacco Use Types Packs/Day Years [...] Td Vaccines ( 1 - Tdap) 1965 Pneumococcal Vaccine: 50+ Ye ars (1 of 1 - PCV) 1996 Zoster Vaccines (1 of 2) 1996 RSV Immunization or 60+ Years (1 - 1-dose 75+ series) 2021 COVID-19 Vaccine (1 - 2023-2 5 season) 2024 Meningococcal B Vaccine Aged Out No l onger eligible based on patient's age to complete this topic Meningococcal Vaccine Aged Out No nic christine eligible based on patient's age to complete this topic RSV Immunizations Under 20 Months Aged Out No longer eligible based on patient's age to complete this topic Insurance [facility] Care Teams Record Clerk Relationship Specialty Start Date End Date Morena Denny MD [address] [address] PCP - General INTERNAL MEDICINE 11/13/20
--- OUTSIDE RECORDS SUMMARY | 2025-05-31 01:20 | XMS_ITS | Encounter Summary ---
Author Organization [facility] Address 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
--- OUTSIDE RECORDS SUMMARY | 2025-05-31 01:20 | XMS_ITS | Encounter Summary ---
Author Organization [facility] Address 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 Please see the orthopedic physician s report for details, which can be found in the patient s medical record. Dictated by: RADIOLOGY, DEPARTMENT O Electronically signed by: RADIOLOGY, DEPARTMENT 08/12/2008 18:53 Transcribed: 08/12/2008 18:48 AMK Procedure Note Radiology, Radiologist - 08/12/[address] [address] Admit Date: 08/04/2008 TORRES DUANE Sex: M Admit Prov: JUAN RAMOS Date:1945 Primary Care Prov: PCP, UNKNOWN CMRN: [id number] Room: [facility]: [id number] IMAGING SERVICES Ordering Prov: JUAN RAMOS Interpretation This procedure was performed at the request of the orthopedicphysician. Please see the orthopedic physician s report for details, which canbe found in the patient s medical record. Dictated by: RADIOLOGY, DEPARTMENT O Electronically signed by: RADIOLOGY, DEPARTMENT 08/12/2008 18:53 Transcribed: 08/12/2008 18:48 AMK Jaun Ramos MD DIAGNOSTIC IMAGING ORDERABLES Fi nal Result * XR KNEE 1 OR 2 VW RIGHT (08/04/2008 2:04 PM CDT) Anatomical Region Laterality Modality Lower Extremity Other 08/04/2008 2:04 PM CDT Narrative 08/12/2008 6:54 PM CDT [address] [address] Admit Date: 08/04/2008 DARON DUANE Sex: M Admit Prov: JUAN RAMOS [place] Date: 1945 Primary Care Prov: PCP, UNKNOWN CMRN: [id number] Room: [facility]: [id number] IMAGING SERVICES Ordering Prov: JUAN RAMOS Accession Number: [id number] Interpretation This procedure was performed at the request of the orthopedic physician. Please see the orthopedic physician s report for details, which can be found in the patient s medical record. Dictated by: RADIOLOGY, DEPARTMENT O Electronically signed by: RADIOLOGY, DEPARTMENT 08/12/2008 18:53 Transcribed: 08/12/2008 18:48 AMK Procedure Note Radiology, Radiologist - 08/12/2008 [facility] [address] [place], [place] [address] Admit Date: 08/04/2008 DARON DUANE Sex: M Admit Prov: RACHELJUAN Date:1945 Primary Care Prov: PCP, UNKNOWN CMRN: [id number] [facility] [id number] [facility] Ordering Prov: JUAN RAMOS Interpretation [...] on filedocumented in this encounter Care Teams Alarm Mechanic Relationship Specialty Start Date End Date Juan Ha MD PCP - General Internal Medicine 08/12/11 documented as of this encounter
--- OUTSIDE RECORDS SUMMARY | 2025-05-31 01:20 | XMS_ITS | Encounter Summary ---
Author Organization [facility] Address 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 Gender Identity Not on file Sexual Orientation Not on file documented as of this encounter Plan of Treatment Not on file documented as of this encounter Procedures Procedure Name Priority Date/Time Associated Diagnosis Comments XR KNEE 1 OR 2 VW RIGHT Routine 11/27/2008 2:06 PM JOB ANALYSIS MANAGER documented in this encounter Results * XR KNEE 1 OR 2 VW RIGHT (11/27/2008 2:06 PM JOB ANALYSIS MANAGER) Anatomical Region Laterality Modality Lower Extremity Other 11/27/2008 2:06 PM JOB ANALYSIS MANAGER Narrative 11/30/2008 9:42 PM JOB ANALYSIS MANAGER [facility] [address] [place], [place] [address] Admit Date: 11/27/2008 DUANE TORRES Sex: M Admit Prov: JUAN RAMOS Date: 1945 Primary Care Prov: CMRN: [id number] Room: [facility] SSN: [id number] IMAGING SERVICES Ordering Prov: JUAN RAMOS Accession Number: [id number] Interpretation This procedure was performed at the request of the orthopedic physician. Please see the orthopedic physician s report for details, which can be found in the patient s medical record. Dictated by: RADIOLOGY, DEPARTMENT O Electronically signed by: RADIOLOGY, DEPARTMENT 11/30/2008 21:41 Transcribed: 11/29/2008 20:33 AMK Procedure Note Radiology, Radiologist - 11/30/2008 [facility] [address] [place], [place] [address] Admit Date: 11/27/2008 DUANE TORRES Sex: M Admit Prov: JUAN RAMOS Date:1945 Primary Care Prov: CMRN: [id number] Room: [facility] SSN: [id number] IMAGING SERVICES Ordering Prov: JUAN RAMOS Interpretation [...] surgery documented in this encounter Care Teams Map Colorer Relationship Specialty Start Date End Date Juan Ha MD PCP - General Internal Medicine 08/12/11 documented as of this encounter
--- OUTSIDE RECORDS SUMMARY | 2025-05-31 01:20 | XMS_ITS ---
Author Organization [address] Address [address] [place] [address] Care Team Providers Care Java J2Ee Application Developer Name Role Phone No, Physician Primary Care Provider [phone] Demetrius Espitia MD Unavailable [phone] Henry Barton MD Unavailable [phone] Active Problems Problem Noted Date Diagnosed [...] neuropathy 09/18/2017 Overview (03/18/2022): Overview: Neurologist at [facility] Neurologist at [facility] Other chronic pain 09/18/2017 Primary [...]
--- OUTSIDE RECORDS SUMMARY | 2025-05-31 01:20 | XMS_ITS | Encounter Summary ---
Author Organization [facility] Address 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
--- OUTSIDE RECORDS SUMMARY | 2025-05-31 01:20 | XMS_ITS | Encounter Summary ---
Author Organization [facility] Address [address] [place] [address] Care Team Providers Care Hvac R Tech Name Role Phone Juan Ha MD Primary Care Provider Michelle Barbosa RN Unavailable Unavailable Juan Joshi I OD Unavailable [phone] [facility] Unavailab le Encounter Details Date Type Department Care Team (Late st Contact Info) Description 12/23/2021 Telephone [facility] [address] [place] [address] Demetrius Saini MD [address] [facility] [address] [place] [address] Social History Tobacco Use Types Packs/Day Years Used Date Smoking Tobacco: Never Smokeless Tobacco: Never Alcohol Use Standard Drinks/Week Comments Yes 0 (1 standard drink = 0.6 oz pur e alcohol) PHQ-2 Answer Date Recorded PHQ2 TOTAL SCORE 0 12/14/2021 Sex and Gender Information Value Date Recorded Sex Assigned at Not on file Legal Sex Male 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 Gender Identity Not on file Sexual Orientation Not on file documented as of this encounter Plan of Treatment Not on file documented as of this encounter Visit Diagnoses Not on filedocumented in this encounter Care Teams Hvac R Tech Relationship Specialty Start Date End Date Juan Ha MD PCP - General 07/04/16 Michelle Barbosa, supervisor paint departmentSecurity Chief Museum 02/26/19 Juan Joshi I, OD [address] [facility] [place] [address] Labor Relations Director [place] 12/21/21 Clinicpcp, Sivan Jimenez [address] [place] [address] 12/21/21 documented as of this encounter
--- OUTSIDE RECORDS SUMMARY | 2025-05-31 01:20 | XMS_ITS | Encounter Summary ---
Author Organization [facility] Address 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
--- OUTSIDE RECORDS SUMMARY | 2025-05-31 01:20 | XMS_ITS | Encounter Summary ---
Author Organization [facility] Address 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 Gender Identity Not on file Sexual [...] CDT) HEMOGLOBIN 10.6(L) 13.6 - 16.5 g/dL [facility] HEMATOCRIT 31.7(L) 40.0 - 48.0 % [facility] Blood specimen (specimen) 09/12/2008 6:49 AM CDT 09/12/2008 8:06 AM CDT Juan Ramos MD HEMATOLOGY ORDERABLES Final Resu lt Performing Organization Address [facility] de Phone Number INTERFACE SYSTEM Refer to clinic/hospital department [facility] CLIA# [id number] [address] [place] [address] * (ABNORMAL) HEMOGLOBIN AND HEMATOCRIT (09/11/2008 7:26 AM CDT) HEMATOCRIT 38.4(L) 40.0 - 48.0 % [facility] HEMOGLOBIN 12.8(L) 13.6 - 16.5 g/dL [facility] Blood specimen (specimen) 09/11/2008 7:26 AM CDT 09/11/2008 7:51 AM CDT Juan Ramos MD HEMATOLOGY ORDERABLES Final Resu lt Performing Organization Address [facility] de Phone Number INTERFACE SYSTEM Refer to clinic/hospital department [facility] CLIA# [id number] [address] [place] [address] * XR KNEE 1 OR 2 VW RIGHT (09/10/2008 10:50 AM CDT) Anatomical Region Laterality Modality Lower Extremity Other 09/10/2008 10:5 0 AM CDT Narrative 09/10/2008 11:07 AM CDT [address] [address] Admit Date: 09/10/2008 DUANE TORRES Sex: M Admit Prov: JUAN RAMOS Date: 1945 Primary Care Prov: PCP, UNKNOWN CMRN: [id number] Room: [place] [address] SSN: [id number] IMAGING SERVICES Ordering Prov: N/A Accession Number: [id number] Interpretation Right knee 2 views 09/10/2008 History: Postop. 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 No acute fracture is visualized. There is joint effusion. . Dictated by: NETTE MOODY 09/10/2008 11:05 Electronically signed by: NETTE MOODY 09/10/2008 11:05 Procedure Note Nette Moody - 09/10/[address] [address] Admit Date: 09/10/2008 DUANE TORRES Sex: M Admit Prov: JUAN RAMOS Date:1945 Primary Care Prov: PCP, UNKNOWN CMRN: [id number] Room: [place] [address] SSN: [id number] IMAGING SERVICES Ordering Prov: N/A Interpretation Right [...] AM CDT Narrative 09/04/2008 11:58 AM CDT [address] [place], [place] [address] Admit Date: 08/22/2008 DUANE TORRES Sex: M Admit Prov: JUAN RAMOS Date: 1945 Primary Care Prov: PCP, UNKNOWN CMRN: [id number] Room: [facility] SSN: [address] [place] [address] IMAGING SERVICES Ordering Prov: N/A Accession Number: [id number] Interpretation PA and lateral chest x-ray. History: [...] Procedure Note Sonny Rader MD - 09/04/[address] [address] Admit Date: 08/22/2008 DUANE TORRES Sex: M Admit Prov: JUAN RAMOS Date:1945 Primary Care Prov: PCP, UNKNOWN CMRN: [id number] Room: [facility] SSN: [id number] IMAGING SERVICES Ordering Prov: N/A Interpretation PA [...] CDT) WBC 6.8 4.0 - 9.8 K/uL [facility] MCH 29.5 27.2 - 32.6 pg [facility] HEMATOCRIT 45.7 40.0 - 48.0 % [facility] RDW-STDEV 42.3 37.1 - 48.7 fL [facility] RBC 5.26 4.50 - 5.40 M/uL [facility] MCHC 33.9 31.5 - 35.5 % [facility] MCV 86.9 82.0 - 99.0 fL [facility] HEMOGLOBIN 15.5 13.6 - 16.5 g/dL [facility] RDW 13.4 11.5 - 14.5 % [facility] BASOPHILS 0 0 - 2 % [facility] BASOPHILS ABSOLUTE 0.01 0.00 - 0.20 K/uL [facility] MONOCYTES 8 3 - 13 % [facility] MONOCYTE ABSOLUTE 0.57 0.10 - 1.30 K/uL [facility] NEUTROPHILS 59 45 - 70 % [facility] NEUTROPHIL ABSOLUTE 3.95 1.90 - 7.00 K/uL [facility] EOSINOPHILS 2 0 - 7 % [facility] EOSINOPHIL ABSOLUTE 0.14 0.00 - 0.70 K/uL [facility] LYMPHOCYTES 31 16 - 45 % [facility] LYMPHOCYTE ABSOLUTE 2.08 0.70 - 4.50 K/uL [facility] MPV 12.8(H) 9.3 - 12.4 fL [facility] PLATELETS 83(L) 140 - 350 K/uL [facility] Comment: Platelets verified by smear review. Blood specimen (specimen) 09/04/2008 10:43 AM CDT 09/04/2008 12:01 PM CDT Juan Ramos MD HEMATOLOGY ORDERABLES Edited INTERFACE SYSTEM Refer to clinic/hospital department [facility] CLIA# [id number] [address] [place], [place] [address] * (ABNORMAL) COMPREHENSIVE METABOLIC PANEL (09/04/2008 10:43 AM CDT) GLUCOSE 122(H) 65 - 99 mg/dL [facility] AST 25 12 - 38 U/L [facility] BUN 14 6 - 20 mg/dL [facility] CALCIUM 9.8 8.6 - 10.2 mg/dL [facility] CHLORIDE 101 96 - 108 mmol/L [facility] ALBUMIN 4.6 3.4 - 4.8 g/dL [facility] CREATININE 0.91 0.67 - 1.17 mg/dL [facility] SODIUM 138 135 - 145 mmol/L [facility] ALT 45(H) 0 - 41 U/L [facility] ALKALINE PHOSPHATASE 63 40 - 129 U/L [facility] BILIRUBIN TOTAL 0.4 0.2 - 1.0 mg/dL [facility] CO2 26 22 - 30 mmol/L [facility] TOTAL PROTEIN 7.2 6.3 - 8.6 g/dL [facility] POTASSIUM 3.6 3.5 - 4.9 mmol/L [facility] GFR, >60 >=60 mL/min/1. 7 sq meter [facility] GFR >60 >=60 mL/min/1. 7 sq meter [facility] Comment: Modification of Diet in Renal Disease (MDRD) study formula. Estimated GFR rate interpretative information for both Americans and non- Americans is available on the [facility] Intranet at: [email or web address] Select: Lab Policies and Procedures Select: Reference Ranges - GFR Blood specimen (specimen) 09/04/2008 10:43 AM CDT 09/04/2008 12:01 PM CDT Juan Ramos MD CHEMISTRY ORDERABLES Edited INTERFACE SYSTEM Refer to clinic/hospital department [facility] CLIA# [id number] [address] [place] [address] * PT AND APTT (09/04/2008 10:43 AM CDT) PROTIME 13.3 12.7 - 15.1 Seconds [facility] INR 1.0 0.9 - 1.1 [facility] Comment: INR Therapeutic Range: Adult: 2.0 - 3.0 for pulmonary embolism or prophylaxis against venous thrombosis or systemic embolization. 2.0 - 3.0 for patients with tissue heart valves. 2.5 - 3.5 for patients with mechanical heart valves or post RI. Pediatric (12 years and under): 1.5 - 3.0 Although the target range in children is not well established, INR values of 1.5 - 3.0 are recommended for most patients. Higher values have been used in children with prosthetic cardiac valves and hereditary clotting disorders. Cook (<3 days) therapeutic ranges have not been established. PTT 27.8 24.4 - 36.4 Seconds [facility] Comment: PTT Therapeutic Range: Heparin Level PTT (seconds) <0.10 units/mL <53 0.10 - 0.30 units/mL 53 - 67 0.30 - 0.70 units/mL* 67 - 95* 0.70 - 1.00 units/mL 95 - 116 *corresponds to therapeutic range for unfractionated heparin Blood specimen (specimen) 09/04/2008 10:43 AM CDT 09/04/2008 12:01 PM CDT Result [facility] Juan Ramos MD HEMATOLOGY ORDERABLES Edited Performing Organization Address [facility] Phone Number INTERFACE SYSTEM Refer to clinic/hospital department [facility] CLIA# [id number] [address] [facility] [place] [address] * TYPE AND CROSSMATCH (09/04/2008 10:41 AM CDT) HISTORY CHECK No Historical ABO/Rh [facility] SPECIMEN LIFE 3 days from OR date [facility] ABO/RH TYPE O Positive [facility] ANTIBODY SCREEN Negative [facility] Blood specimen (specimen) 09/04/2008 10:41 AM CDT Juan Ramos MD BLOOD BANK ORDERABLES Edited Performing Organization Address [facility] Phone Number INTERFACE SYSTEM Refer to clinic/hospital department [facility] CLIA# [id number] [address] [place] [address] * URINALYSIS (09/04/2008 10:20 AM CDT) COLOR UA Yellow [facility] NITRITE UA Negative Negative [facility] UROBILINOGEN UA <1 <=1 mg/dL [facility] PH UA 6.0 5.0 - 8.0 [facility] KETONES UA Negative Negative [facility] CLARITY UA Clear Clear [facility] BILIRUBIN UA Negative Negative [facility] PROTEIN UA Negative Negative [facility] LEUKOCYTE ESTERASE UA Negative Negative [facility] SPECIFIC GRAVITY UA 1.016 1.001 - 1.035 [facility] GLUCOSE UA Negative Negative [facility] BLOOD UA Negative Negative [facility] 09/04/2008 10:2 0 AM CDT 09/04/2008 12:02 PM CDT Juan Ramos MD URINE ORDERABLES Final Result Performing Organization Address [facility] Phone Number INTERFACE SYSTEM Refer to clinic/hospital department [facility] CLIA# [id number] [address] [place] [address] * URINALYSIS WITH REFLEX CULTURE (09/04/2008 10:20 AM CDT) URINE CULTURE ORDER Not indicated [facility] Comment: Criteria for a reflex culture [...] URINE ORDERABLES Final Result Performing Organization Address [facility] Phone Number INTERFACE SYSTEM Refer to clinic/hospital department [facility] CLIA# [id number] [address] [place] [address] documented in this encounter Visit Diagnoses Diagnosis Osteoarthrosis, unspecified whether generalized or localized, unspecified site documented in this encounter Care Teams Hand Mixer Relationship Specialty Start Date End Date Juan Ha MD PCP - General Internal Medicine 08/12/11 documented as of this encounter
--- OUTSIDE RECORDS SUMMARY | 2025-05-31 01:20 | XMS_ITS | Clinical Summary ---
Author Organization [facility] Address [address] [place] [address] Care Team Providers Care Melter Supervisor Oxygen Furnace Name Role Phone Provider, Unknown Primary Care Provider Unavaila ble Medications metroNIDAZOLE (FLAGYL) 500 MG Tablet Take 1 Tab by mouth 3 times daily. 30 Tab 11/29/2018 Active Immunizations Immunization Administration Dates Next Due Covid-19, Mrna, Lnp-s, Pf, 30 Mcg/0.3 Ml Dose (P fizer) 09/10/2021 Social History Tobacco Use Types Packs/Day [...] Immunization ( - season) 2024 09/10/2021 Colonoscopy Discontinued 08/20/2018 Colorectal Cancer Screening Discontinued Retired - Colonoscopy High Risk Discontinued 08/20/2018 Cologuard Discontinued Hepatitis B Immunization Aged Out [...] Recently Relevant to Health Maintenance Insurance MEDICARE , [place] [id number] Care Teams Melter Supervisor Oxygen Furnace Relationship Specialty Start Date End Date Provider, Unknown UNKNOWN PCP - General 08/21/18
--- OUTSIDE RECORDS SUMMARY | 2025-05-31 01:20 | XMS_ITS | Encounter Summary ---
Author Organization [facility] Address [address] [place] [address] Care Team Providers Care Equipment Inspector Name Role Phone Juan Ha MD Primary Care Provider [phone] Michelle Barbosa RN Unavailable Unavailable Juan Joshi I OD Unavailable [facility] Unavailab le Reason for Visit * Reason Onset Date Comments MEDICATION REFILL 08/14/2018 Encounter Details Date Type Department Care Team (Late st Contact Info) Description 08/14/2018 Refill [facility] General Internal Medicine [address] [place] [address] Juan Ha MD [address] [facility] [address] 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
--- OUTSIDE RECORDS SUMMARY | 2025-05-31 01:20 | XMS_ITS | Encounter Summary ---
Author Organization [facility] Address [address] [place] [address] Phone Care Team Providers Care County Or City Auditor Name Role Phone Juan Ha MD Primary Care Provider [phone] Blessing Carpio RN Unavailable [phone] Unknown, Notinfile Primary Care Provider Unavail able No, Physician Primary Care Provider [phone] Demetrius Espitia MD Unavailable [phone] Henry Barton MD Unavailable [phone] Encounter Details Date Type Department Care Team (Late st Contact Info) Description 07/02/2021 Orders Only [facility] NEUROMUSCLE Scanning, Provider Social History Tobacco Use Types Packs/Day Years Used Date Smoking Tobacco: Never Sex and Gender Information Value Date Recorded Sex Assigned at Not on file Legal Sex Male 7:17 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 Gender Identity Not on file Sexual Orientation [...] on filedocumented in this encounter Care Teams [place] Auditor Relationship Specialty Start Date End Date Juan Ha MD [address] [place] [address] PCP - General 03/13/18 06/19/23 Unknown, Notinfile PCP - General 06/20/23 07/25/23 No, Physician PCP - General 07/26/23 Blessing Carpio, RN [address] [place] [address] Nurse Navigator 03/04/22 08/09/22 Demetrius Espitia MD Radiation Oncologist Radiation Oncology 07/26/23 Henry Barton MD [address] [place] [address] Consulting Physician Urology 07/26/23 documented as of this encounter
--- OUTSIDE RECORDS SUMMARY | 2025-05-31 01:20 | XMS_ITS | Encounter Summary ---
Author Organization [facility] Address 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
--- OUTSIDE RECORDS SUMMARY | 2025-05-31 01:20 | XMS_ITS | Clinical Summary ---
Author Organization [address] Address [address] [place] [address] Care Team Providers Care Hand Mica Plate Layer Name Role Phone No, Physician Primary Care Provider [phone] Demetrius Espitia MD Unavailable [phone] Henry Barton MD Unavailable Allergies Active Allergy Reactions Criticality Noted Date [...] neuropathy 09/18/2017 Overview (03/18/2022): Overview: Neurologist at [facility] Neurologist at [facility] Other chronic pain 09/18/2017 Primary [...] on file Legal Sex Male 7:17 AM PRODUCTION INSPECTOR Gender Identity Not on file Sexual Orientation Not on file Obstetrics History Last Filed Vital Signs Vital Sign Reading Time Taken Comments Blood Pressure 112/70 12/11/2024 12:18 PM PRODUCTION INSPECTOR Pulse 89 12/11/2024 12:18 PM PRODUCTION INSPECTOR Temperature 36.3 C (97.4 F) 12/11/2024 12:18 PM PRODUCTION INSPECTOR Respiratory Rate 16 01/11/2019 11:45 AM PRODUCTION INSPECTOR Oxygen Saturation 98% 01/04/2024 9:02 AM PRODUCTION INSPECTOR Inhaled Oxygen Concentration - - Weight 122.5 kg (270 lb) 12/11/2024 12:18 PM PRODUCTION INSPECTOR Height 200.7 cm (6' 7) 12/11/2024 12:18 PM PRODUCTION INSPECTOR Body Mass Index 30.42 12/11/2024 12:18 PM PRODUCTION INSPECTOR Plan of Treatment Health Maintenance Due Date [...] exists Lipid Panel 12/30/2022 12/30/2021 Covid-19 Vaccine (4 - 2023-2 5 season) 2024 09/10/2021, 12/28/2020, 12/06/2020 Influenza Vaccine (#1) 2025 , 08/08/2023, 12/14/2021, Additional history exists DTaP/Tdap/Td Vaccine (4 - Td or Tdap) 04/23/2031 04/23/2021, 04/29/2014, 10/13/2002 Colon Cancer Screening-CT Colonography Discontinued 01/11/2019 Colon Cancer Screening-Colonoscopy Discontinued 01/11/2019 Colon Cancer Screening-DNA Stool Discontinued 01/12/20 19 Colon Cancer Screening-FIT Discontinued 01/11/2019 Colon Cancer Screening-FOBT Discontinued 01/11/2019 Colon Cancer Screening-Sigmoidoscopy Discontinued 01/11/2019 Colorectal Cancer Screening Discontinued Pneumococcal vaccine 65+ Completed 019, 02/10/2015, 01/21/2014 Zoster Vaccine Completed 10/29/2019, 07/14, 11/23/2017 Medical Devices Implanted Type Area Manager Immunology Device Identifier Shelf Expiration Date Model / Serial / Lot Bilateral Total Knee Arthroplasty Bilateral : Knee Procedures Procedure Name Priority Date/Time Associated Diagnosis Comments COLONOSCOPY 01/11/2019 7:11 AM PRODUCTION INSPECTOR from Last 3 Months or Most Recently Relevant to Health Maintenance Results * COLONOSCOPY (01/11/2019 7:11 AM PRODUCTION INSPECTOR) Anatomical Region Laterality Modality Other Narrative Procedure Note Cedric Frausto MD PhD - 01/11/2019 7:11 AM CST [facility] Patient Name: Duane Torres Procedure Date: 01/11/2019 7:11 AM Date of : 1945 Admit Type: Outpatient Age: 73 Gender: Male Attending MD: Cedric Frausto MD, PHD Room: [facility] OPERATING ROOM 02 Note Status: Finalized Procedure: [...] The scope was passed under direct vision.The [id number] Endoscope was introduced throughthe anus and advanced [...] On: 01/11/2019 7:11 AM Recognized by the [place] for promoting quality in endoscopy Cedric Frausto MD PhD ENDOSCOPY PROCEDURES Final Result from Last 3 Months or Most Recently Relevant to Health Maintenance Insurance MEDICARE [employer] [facility] [place] [facility] [place] [facility] MEDICARE [facility] MEDICARE [facility] Care Teams Hand Mica Plate Layer Relationship Specialty Start Date End Date No, Physician PCP - General 07/26/23 Demetrius Espitia MD Radiation Oncologist Radiation Oncology 07/26/23 Henry Barton MD [address] [place] [address] Consulting Physician Urology 07/26/23
--- OUTSIDE RECORDS SUMMARY | 2025-05-31 01:20 | XMS_ITS | Referral Summary ---
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 Gender Identity Not on file Sexual Orientation Not on file Last Filed Vital Signs Vital Sign Reading Time Taken Comments Blood Pressure 112/70 12/11/2024 12:18 PM SENIOR ARCHITECTURAL DESIGNER Pulse 89 12/11/2024 12:18 PM SENIOR ARCHITECTURAL DESIGNER Temperature 36.3 C (97.4 F) 12/11/2024 12:18 PM SENIOR ARCHITECTURAL DESIGNER Respiratory Rate 16 01/11/2019 11:45 AM SENIOR ARCHITECTURAL DESIGNER Oxygen Saturation 98% 01/04/2024 9:02 AM SENIOR ARCHITECTURAL DESIGNER Inhaled Oxygen Concentration - - Weight 122.5 kg (270 lb) 12/11/2024 12:18 PM SENIOR ARCHITECTURAL DESIGNER Height 200.7 cm (6' 7) 12/11/2024 12:18 PM SENIOR ARCHITECTURAL DESIGNER Body Mass Index 30.42 12/11/2024 12:18 PM SENIOR ARCHITECTURAL DESIGNER Plan of Treatment Not on file Medical Devices Implanted Type Area Can Line Operator Device Identifier Shelf Expiration Date Model / Serial / Lot Bilateral Total Knee Arthroplasty Bilateral : Knee Procedures Procedure Name Priority Date/Time Associated Diagnosis Comments COLONOSCOPY 01/11/2019 7:11 AM SENIOR ARCHITECTURAL DESIGNER from Last 3 Months or Most Recently Relevant to Health Maintenance Results * COLONOSCOPY (01/11/2019 7:11 AM SENIOR ARCHITECTURAL DESIGNER) Anatomical Region Laterality Modality Other Narrative Procedure Note Cedric Frausto MD PhD - 01/11/2019 7:11 AM CST [facility] Patient Name: Duane Torres Procedure Date: 01/11/2019 7:11 AM Date of : 1945 Admit Type: Outpatient Age: 73 Gender: Male Attending MD: Cedric Frausto MD, PHD Room: [facility] OPERATING ROOM 02 Note Status: Finalized [...] The scope was passed under direct vision.The [id number] Endoscope was introduced throughthe anus and advanced [...] On: 01/11/2019 7:11 AM Recognized by the [employer] for promoting quality in endoscopy Cedric Frausto MD PhD ENDOSCOPY PROCEDURES Final Result from Last 3 Months or Most Recently Relevant to Health Maintenance Insurance MEDICARE [employer] [facility] [place] [facility] COMMUNITY CARE MEDICARE [place] MEDICARE [facility] Care Teams Park Activities Coordinator Relationship Specialty Start Date End Date No, Physician PCP - General 07/26/23 Demetrius Espitia MD Radiation Oncologist Radiation Oncology 07/26/23 Henry Barton MD [facility] [facility] [address] [place] [address] Consulting Physician Urology 07/26/23
--- OUTSIDE RECORDS SUMMARY | 2025-05-31 01:20 | XMS_ITS | Encounter Summary ---
Author Organization [facility] Healthcare Address [address] [place] [address] Care Team Providers Care Brine Tank Separator Operator Name Role Phone Unknown, Notinfile Primary Care Provider Unavail able No, Physician Primary Care Provider [phone] Demetrius Espitia MD Unavailable [phone] Henry Barton MD Unavailable [phone] Encounter Details Date Type Department Care Team (Late st Contact Info) Description 06/30/2023 Telephone [facility] Medical Office Building 2 Radiation Oncology [address] [place] [phone] Demetrius Espitia MD [address] [place] [phone] Social History Tobacco Use Types Packs/Day [...] on file Legal Sex Male 7: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 Gender Identity Not on file Sexual Orientation Not on file documented as of this encounter Plan of Treatment Not on file documented as of this encounter Visit Diagnoses Not on filedocumented in this encounter Care Teams Brine Tank Separator Operator Relationship Specialty Start Date End Date Unknown, Notinfile PCP - General 06/20/23 07/25/23 No, Physician PCP - General 07/26/23 Demetrius Espitia MD Radiation Oncologist Radiation Oncology 07/26/23 Henry Barton MD [address] [facility] [address] [place] [address] Consulting Physician Urology 07/26/23 documented as of this encounter
--- OUTSIDE RECORDS SUMMARY | 2025-05-31 01:20 | XMS_ITS | Encounter Summary ---
Author Organization [facility] Address [address] [place] [address] Phone Care Team Providers Care Programs Assistant Name Role Phone No, Physician Primary Care Provider [phone] Demetrius Espitia MD Unavailable [phone] Henry Barton MD Unavailable [phone] Reason for Referral * Diagnostic Imaging (Routine) - Closed Specialty Diagnoses / Procedures Referred By Contac t Referred To Contact Diagnoses Pituitary adenoma (HCC) Procedures Velazquez Visual Field - OU - Both Eyes Velazquez Visual Field - OU - Both Eyes Herbert Sneed MD [address] [place] [address] Phone: tel: fax: [facility] Referral ID Status Reason Start Date Expiration Date Visits Re quested Visits Authorized [id number] Closed 11/24/2023 12/23/2024 1 1 ORT MERCHANDISER Encounter Details Date Type Department Care Team (Late st Contact Info) Description 11/24/2023 Orders Only [facility] Neurosurgery [address] [facility] 6th [place] [address] [place] [address] Herbert Sneed MD [address] [place] [address] Pituitary adenoma (HCC) (Primary Dx) [...] on file Legal Sex Male 7:17 AM SUPPORT MERCHANDISER Gender Identity Not on file Sexual Orientation [...] (pouch) documented in this encounter Care Teams Programs Assistant Relationship Specialty Start Date End Date No, Physician PCP - General 07/26/23 Demetrius Espitia MD Radiation Oncologist Radiation Oncology 07/26/23 Henry Barton MD [address] [place] [address] Consulting Physician Urology 07/26/23 documented as of this encounter
--- OUTSIDE RECORDS SUMMARY | 2025-05-31 01:20 | XMS_ITS | Encounter Summary ---
Author Organization [facility] Address [address] [place] [address] Care Team Providers Care Railroad Car Checker Name Role Phone Juan Ha MD Primary Care Provider Encounter Details Date Type Department Care Team (Late st Contact Info) Description 10/29/2007 Outpatient Historical [facility], [address] Juan Burnett MD NO ADDRESS ON FILE Social History Tobacco Use Types Packs/Day Years Used Date Smoking Tobacco: Never Assessed Sex and Gender Information Value Date Recorded Sex Assigned at Not on file Legal Sex Male 5:29 AM APPLICATION DEVELOPMENT CONSULTANT Gender Identity Not on file Sexual Orientation Not on file documented as of this encounter Plan of Treatment Not on file documented as of this encounter Procedures Procedure Name Priority Date/Time Associated Diagnosis Comments SOURCE, FLUID Routine 10/29/2007 7:06 PM APPLICATION DEVELOPMENT CONSULTANT SYNOVIAL FLUID CRYSTAL Routine 10/29/2007 7:06 PM APPLICATION DEVELOPMENT CONSULTANT CELL COUNT WITH DIFFERENTIAL, BODY FLUID Routine 10/29/2007 7:06 PM APPLICATION DEVELOPMENT CONSULTANT documented in this encounter Results * SOURCE, FLUID (10/29/2007 7:06 PM APPLICATION DEVELOPMENT CONSULTANT) SOURCE FLUID Knee, Right INTERFACE SYSTEM 10/29/2007 7:06 PM APPLICATION DEVELOPMENT CONSULTANT us Juan Burnett MD HEMATOLOGY ORDERABLES Edited INTERFACE SYSTEM Refer to clinic/hospital department * SYNOVIAL FLUID CRYSTAL (10/29/2007 7:06 PM APPLICATION DEVELOPMENT CONSULTANT) JOINT FLD CRYSTAL QTY Negative Negative INTERFACE SYSTEM CRYSTALS INTERPRETED BY: El Hill MD INTERFACE SYSTEM 10/29/2007 7:06 PM APPLICATION DEVELOPMENT CONSULTANT Juan Burnett MD BODY FLUIDS AND STOOLS Edited Performing Organization Address [facility] [address]/[facility] Phone Number INTERFACE SYSTEM Refer to clinic/hospital department * CELL COUNT WITH DIFFERENTIAL, BODY FLUID (10/29/2007 7:06 PM APPLICATION DEVELOPMENT CONSULTANT) WBC, FLD 2,656 /uL INTERFACE SYSTEM RBC, [...] WBC Counted INTERFACE SYSTEM 10/29/2007 7:06 PM APPLICATION DEVELOPMENT CONSULTANT Juan Burnett MD BODY FLUIDS AND STOOLS Edited Performing Organization Address [facility] [address]/[facility] Phone Number INTERFACE SYSTEM Refer to clinic/hospital department documented in this encounter Visit Diagnoses Not on filedocumented in this encounter Care Teams Railroad Car Checker Relationship Specialty Start Date End Date Juan Ha MD PCP - General Internal Medicine 08/12/11 documented as of this encounter
[2025-05-31 01:22] LABS: Hematocrit 37.5 % (42.0-52.0); Hemoglobin 12.4 g/dL (14.0-18.0); Immature Granulocyte Percent A 0.4 % (0-0.5); Lymphocytes Absolute Auto 1.13 K/mm3 (0.9-3.2); Mean Corpuscular HGB Conc 33.1 g/dl (32-36); Mean Corpuscular Hemoglobin 30.8 pg (26-34); Mean Corpuscular Volume 93.3 fl (80-100); Nucleated Red Blood Cells Absolute Auto 0.000 K/mm3 (0.0-0.012); Nucleated Red Blood Cells Perc 0.0 % (0.0-0.2); Platelet Count Result 116 k/mm3 (150-375); Red Blood Count 4.02 M/mm3 (4.6-6.20); White Blood Count 10.1 K/mm3 (4.5-10.0)
--- NOTE | 2025-05-31 01:26 | ED_ITS ---
HPI - Trauma General Chief Complaint: Trauma Stated Complaint: fall down 13 steps Time Seen by Provider: 05/31/25 00:49 History of Present Illness HPI narrative: Patient is a 79 year male who presents to the ER after sustaining a fall down 11 stairs. He reports he was walking upstairs to go to bed when he lost balance and fell backwards. Patient is unsure whether or not he lost consciousness. At time of examination patient endorses left shoulder pain, back pain and a mild headache. Patient denies any cervical spine tenderness, abdominal pain, chest pain, nausea/vomiting, or visual changes. He endorses a history of hyperlipidemia, chronic pain, and diabetes. Related Data Home Medications ?Medication ?Instructions ?Recorded ?Confirmed ?Last Taken ?Type acetaminophen 325 mg capsule 325 mg PO TID PRN Pain 08/16/20 08/16/20 Unknown History alogliptin 25 mg tablet 25 mg PO DAILY 08/16/20 08/16/20 Unknown History atorvastatin 10 mg tablet 10 mg PO DAILY 08/16/20 08/16/20 Unknown History cholecalciferol (vitamin D3) 50 50 mcg PO DAILY 08/16/20 08/16/20 Unknown History mcg (2,000 unit) capsule diclofenac 1.5 % solution and 1 ea topical PRN PRN Pain 08/16/20 08/16/20 Unknown History capsaicin 0.025 % cream topical kit duloxetine 40 mg capsule,delayed 40 mg PO DAILY 08/16/20 08/16/20 Unknown History release metformin 1,000 mg tablet 1,000 mg PO BID 08/16/20 08/16/20 Unknown History oxycodone 5 mg tablet 5 mg PO Q8H PRN Pain 08/16/20 08/16/20 Unknown History polyethylene glycol 3350 17 gram 17 g PO DAILY 08/16/20 08/16/20 Unknown History oral powder packet tamsulosin 0.4 mg capsule 0.4 mg PO DAILY 08/16/20 08/16/20 Unknown History hydrocodone 7.5 mg-acetaminophen 1 tablet PO Q8H PRN Pain 08/17/20 08/17/20 Unknown History 325 mg tablet triamterene 75 1 tablet PO DAILY 08/17/20 08/17/20 Unknown History mg-hydrochlorothiazide 50 mg tablet Allergies Allergy/AdvReac Type Severity Reaction Status Date / Time No Known Allergies Allergy Verified 05/31/25 00:32 Review of Systems 2 Review of Systems: All systems reviewed & are unremarkable except as noted in HPI and below PMFSH Past Medical History Medical History Obstructive sleep apnea Patient uses a dental appliance. Essential hypertension (~01/27/25) Menieres disease Type 2 myocardial infarction (~08/2018) In the setting of severe sepsis due to enterocolitis. Hyperlipidemia Chronic idiopathic thrombocytopenia Anemia Diabetic peripheral neuropathy Osteoarthritis Type 2 diabetes mellitus Last hemoglobin A1c was around 7.5%. Benign prostatic hyperplasia Chronic pain Surgical History Surgical History History of bilateral knee arthroplasty Status post surgical removal of malignant neoplasm of skin (~02/2018) excision of skin cancer from the right eyelid. History of prostate biopsy Family History Family History Mother Dementia in Parkinson's disease Father Coronary artery disease Social History Social History Social History: Surrogate decision maker: Beatriz Torres, spouse. Code status: Full code. Smoking status: Former smoker Additional smoking assessment comments: Smoked socially many years ago. Alcohol intake: former Substance use: never Additional living arrangements comments: Resides with his in [place]. 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 Gender identity (if verbalized by the patient): Male Spiritual care concerns: No Exam 2 Narrative: GENERAL: Well appearing, well-nourished, non-toxic, in no acute distress. HEAD: Normocephalic, quarter-size hematoma to top of patient's crown NECK: Supple. No adenopathy, no masses. No tenderness with palpation RESPIRATORY: Airway patent, respirations nonlabored. Clear to auscultation bilaterally, no rales, rhonchi, wheezing. CARDIOVASCULAR: Regular rate and rhythm without murmurs, rubs, or gallops. Peripheral pulses 2+ and equal bilaterally. ABDOMINAL: Soft, nontender, nondistended, no hepatosplenomegaly. Normoactive BS. MUSCULOSKELETAL: Moves all extremities. Strength/ROM intact without gross deformities. Positive L shoulder drop arm test. SKIN: Warm, dry, normal color. No rashes. NEURO: A&O X3. Speech clear. Cranial nerves II-XII intact. No ataxic movements. PSYCHIATRIC: Appropriate mood and affect. Normal interaction. Course Vital Signs Vital signs: Vital Signs Temperature 36.7 C 05/31/25 00:26 Pulse Rate 73 05/31/25 00:26 Respiratory Rate 21 H 05/31/25 00:26 Pulse Oximetry 98 05/31/25 00:26 Oxygen Delivery Room Air 05/31/25 00:26 Temperature 36.7 C 05/31/25 00:26 Pulse Rate 71 05/31/25 02:56 Respiratory Rate 16 05/31/25 02:56 Blood Pressure 149/81 H 05/31/25 02:56 Pulse Oximetry 99 05/31/25 02:56 Oxygen Delivery Room Air 05/31/25 00:26 MDM - Trauma MDM Narrative Medical decision making narrative: Patient is a 79 year male who presents to the ER after sustaining a fall down 11 stairs. He reports he was walking upstairs to go to bed when he lost balance and fell backwards. Patient is unsure whether or not he lost consciousness. At time of examination patient endorses left shoulder pain, back pain and a mild headache. Patient denies any cervical spine tenderness, abdominal pain, chest pain, nausea/vomiting, or visual changes. He endorses a history of hyperlipidemia, chronic pain, and diabetes. Labs Ordered: CBC, CMP, UA Imaging Ordered: CT head, CT facial cervical spine, CT thoracic and lumbar spine, CT chest abdomen pelvis, left shoulder x-ray Medications Ordered: 1 L normal saline IV bolus, patient declines pain medication stating I just took a [place] 7.5 home before I came here. Results: Patient's CT scans all indicate no acute abnormalities. His CT chest indicates a ?subtle, nondisplaced fracture involving the anterolateral left 4th rib and ?age-indeterminant anterolateral left 8th and 9th anterior rib margins with surrounding callus formation suggesting a subacute process. Patient's left shoulder x-ray indicates a mildly displaced fracture involving the lateral margin of the left clavicle. Diagnosis: Left clavicle fracture, rib fracture Consults: orthopedic surgery (outpatient) Patient Education/Shared MDM: Results of lab work and imaging shared with patient. He continues to decline pain medication administration. Patient reports he has a previous a known left ribcage fracture at the 8th and 9th rib. He endorses mild tenderness along the anterior lateral portion of his 4th left ribcage. Patient continues to deny any shortness a breath. Patient strongly advised to follow-up with orthopedic surgery as soon as possible. He will not be discharged home with any new prescriptions. Strict return precautions provided. Patient verbalized understanding and is in agreement with plan. Vital signs stable at time of discharge. All questions answered. Differential Diagnosis Differential diagnosis: Likely kidney laceration, fracture of mandible, fracture of face bones, contusion of kidney, laceration of liver and laceration of spleen Lab Data Attestation: I reviewed the patient's lab results. 05/31/25 01:14 05/31/25 01:14 Labs: Lab Results 05/31/25 05/31/25 Range/Units 01:14 02:52 WBC 10.1 H (4.5-10.0) K/mm3 RBC 4.02 L (4.6-6.20) M/mm3 Hgb 12.4 L (14.0-18.0) g/dL Hct 37.5 L (42.0-52.0) % MCV 93.3 (80-100) fl MCH 30.8 (26-34) pg MCHC 33.1 (32-36) g/dl RDW 13.9 (11.5-14.5) % Plt Count 116 L (150-375) k/mm3 MPV 10.9 H (7.4-10.4) fl Immature Gran % (Auto) 0.4 (0-0.5) % Neut % (Auto) 79.5 H (45.5-73.1) % Lymph % (Auto) 11.2 L (18.3-44.2) % [place] % (Auto) 5.0 (2.6-8.5) % Eos % (Auto) 3.6 (0-4.4) % Baso % (Auto) 0.3 (0.2-1.2) % Lymph # (Auto) 1.13 (0.9-3.2) K/mm3 [place] # (Auto) 0.5 (0.1-0.6) K/mm3 Eos # (Auto) 0.4 H (0-0.3) K/mm3 Baso # (Auto) 0.0 (0.0-0.1) K/mm3 Abs Immat Gran (auto) 0.04 H (0.00-0.031) K/mm3 Absolute Neuts (auto) 8.0 H (1.3-6.7) K/mm3 Absolute Nucleated RBC 0.000 (0.0-0.012) K/mm3 Nucleated RBC % 0.0 (0.0-0.2) % Sodium 139 (137-145) mmol/L Potassium 4.2 (3.4-5.0) mmol/L Chloride 107 (98-107) mmol/L Carbon Dioxide 24 (22-30) mmol/L Anion Gap 8 (4-12) mmol/L BUN 15 (9-20) mg/dL Creatinine 0.82 (0.7-1.3) mg/dL Estim Creat Clear Calc 86 ml/min Estimated GFR > 60 (59 - ) Glucose 136 H (65-110) mg/dL Calcium 9.2 (8.4-10.2) mg/dL Total Bilirubin 0.4 (0.2-1.3) mg/dL AST 30 (17-59) U/L ALT 24 (6-50) U/L Alkaline Phosphatase 83 (38-126) U/L Total Protein 6.6 (6.3-8.2) g/dL Albumin 3.9 (3.5-5.1) g/dL Urine Color Yellow (Yellow) Urine Appearance Clear (Clear) Urine pH 6.5 (5.0-9.0) Ur Specific [place] > 1.045 H (1.001-1.035) Urine Protein Negative (Negative) mg/dL Urine Glucose (UA) Negative (Negative) mg/dL Urine Ketones Trace H (Negative) mg/dL Ur Blood (Man) Negative (Negative) Urine Nitrate Negative (Negative) Urine Bilirubin Negative (Negative) Urine Urobilinogen 1.0 (<2.0) mg/dL Leukocyte Esterase Rfl Negative (Negative) ROLLY/UL Imaging Data Attestation: I personally reviewed and interpreted this imaging study as follows: Discharge Plan Discharge Clinical Impression: Closed fracture of left clavicle, Displaced fracture of clavicle, Fracture of rib, Fall (on) (from) other stairs and steps, initial encounter Patient Disposition: Home Condition: Stable Instructions: Antibiotic Form, Clavicle Fracture (ED) Additional Instructions: Please return to the ER with any worsening symptoms. Follow-up with Orthopedic surgery as soon as possible. Take all medications as prescribed, including regularly scheduled medications. Please keep your left arm in a sling and immobilized until you are evaluated by Orthopedic surgery. Patient Language: Belarusian Prescriptions: No Action atorvastatin 10 mg Tablet 10 mg PO DAILY tamsulosin 0.4 mg Capsule 0.4 mg PO DAILY metformin 1,000 mg Tablet 1,000 mg PO BID oxycodone 5 mg Tablet 5 mg PO Q8H PRN (Reason: Pain) acetaminophen 325 mg Capsule 325 mg PO TID PRN (Reason: Pain) cholecalciferol (vitamin D3) 50 mcg (2,000 unit) Capsule 50 mcg PO DAILY alogliptin 25 mg Tablet 25 mg PO DAILY duloxetine 40 mg Capsule,Delayed Release(Dr/Ec) 40 mg PO DAILY diclofenac-capsaicin 1.5-0.025 % Kit, Cream And Solution 1 ea topical PRN PRN (Reason: Pain) Rx Instructions: Apply small amount to skin as needed to painful areas. polyethylene glycol 3350 17 gram Powder In Packet 17 g PO DAILY hydrocodone-acetaminophen 7.5-325 mg Tablet 1 tablet PO Q8H PRN (Reason: Pain) triamterene-hydrochlorothiazid 75-50 mg Tablet 1 tablet PO DAILY magnesium oxide 400 mg (241.3 mg magnesium) Tablet 400 mg PO QAM Qty: 30 0RF hydrocodone-acetaminophen 10-325 mg tablet 1 tablet PO DAILY 5 Days Qty: 5 0RF cephalexin 500 mg capsule 500 mg PO Q8H 7 Days Qty: 21 0RF Follow-up/Referrals: Demond Christensne MD [Physician] - (orthopedic surgery) [facility] [Primary Care Provider] - Time of Disposition: 04:08
[2025-05-31 01:44] LABS: Alanine Aminotransferase 24 U/L (6-50); Albumin Level 3.9 g/dL (3.5-5.1); Alkaline Phosphatase 83 U/L (38-126); Anion Gap 8 mmol/L (4-12); Aspartate Amino Transferase 30 U/L (17-59); Bilirubin,Total 0.4 mg/dL (0.2-1.3); Blood Urea Nitrogen 15 mg/dL (9-20); Calcium 9.2 mg/dL (8.4-10.2); Carbon Dioxide 24 mmol/L (22-30); Chloride 107 mmol/L (98-107); Estimated CRCL calculation 86 ml/min; Estimated Glomerular Filt Rate > 60; Glucose 136 mg/dL (65-110); Potassium 4.2 mmol/L (3.4-5.0); Sodium 139 mmol/L (137-145); Total Protein 6.6 g/dL (6.3-8.2)
[2025-05-31 02:56] VITALS: BP 149/81; PULSE 71; RESP 16; O2SAT 99
[2025-05-31 03:00] LABS: Add Urine Microscopic? NO; Appearance Urine Clear (Clear); Glucose Urine UA Negative (Negative); Leukocyte Esterase Ur Negative LEU/UL (Negative); Nitrate Urine Negative (Negative); Specific Grav Ur > 1.045 (1.001-1.035)
--- NOTE | 2025-05-31 03:12 | PC.NURSE ---
Assumed care of patient after receiving bedside report from RAHEEM Sylvester @ [phone].
== END 2025-05-31 04:15 | disposition home or self-care (01) ==
PROVIDERS: Emergency Provider Registered Nurse
DX: S42.032A Displaced fracture of lateral end of left clavicle, initial encounter for closed fracture (principal); S22.32XA Fracture of one rib, left side, initial encounter for closed fracture; I10 Essential (primary) hypertension; I25.2 Old myocardial infarction; H81.09 Meniere's disease, unspecified ear; E11.42 Type 2 diabetes mellitus with diabetic polyneuropathy; E78.5 Hyperlipidemia, unspecified; D69.3 Immune thrombocytopenic purpura; M19.90 Unspecified osteoarthritis, unspecified site; N40.0 Benign prostatic hyperplasia without lower urinary tract symptoms; G47.33 Obstructive sleep apnea (adult) (pediatric); D64.9 Anemia, unspecified; Z96.653 Presence of artificial knee joint, bilateral; Z85.828 Personal history of other malignant neoplasm of skin; Z87.891 Personal history of nicotine dependence; M47.812 Spondylosis without myelopathy or radiculopathy, cervical region; M51.369 Other intervertebral disc degeneration, lumbar region without mention of lumbar back pain or lower extremity pain; M48.061 Spinal stenosis, lumbar region without neurogenic claudication; D73.89 Other diseases of spleen; Z79.899 Other long term (current) drug therapy; Z79.84 Long term (current) use of oral hypoglycemic drugs; W10.9XXA Fall (on) (from) unspecified stairs and steps, initial encounter
CPT/HCPCS: 36415; 70450; 70486; 71260; 72125; 72128; 72131; 73030; 74177; 80053; 81003; 85025; 99284; A4565; Q9967